=== PATIENT | female | born 1940 | race Caucasian/White ===

== ENCOUNTER 2017-11-20 09:00 | Outpatient (RCR) | payer MEDICARE, OTHER, SELFPAY ==
--- NOTE | 2017-11-13 17:40 | PT.OTRE ---
Addendum entered and electronically signed by Rosalee Russ, PT 11/13/17 17:43: Transition note: On November 10, 2017 our therapy services consisting of Speech, Occupational, and Physical Therapy transitioned from the [employer] electronic documentation system to a new [employer] electronic documentation system.?? All documentation prior to November 10 can be found under [employer] saved data. From November 10 forward all medical record documentation will be in [email or web address]. Original Note: Current Diagnoses Multiple sclerosis (11/13/17) Pain in right hip (11/13/17) Pain in left hip (11/13/17) Pain in right knee (11/13/17) Pain in left knee (11/13/17) Low back pain (11/13/17) Other abnormalities of gait and mobility (11/13/17) History of falling (11/13/17) Past Medical History (Last Updated 11/13/17 @ 17:06 by Mercedez Infante, PT) Retention of urine, unspecified (Acute) Urge and stress incontinence (Acute) Surgical History Status post hysterectomy with oophorectomy Status post laparoscopic cholecystectomy Physical Therapy Re-Evaluation PT-OP-A Visit Information Start: 11/13/17 08:11 Freq: Status: Active Protocol: Activity Type Activity Date Activity User E-Sign Co-Sign Detail Recorded Client Recorded Date Recorded By Document 11/13/17 11:15 AMB [email or web address] 11/13/17 17:08 AMB 11/13/17 11:15 Out-Patient Physical Therapy Visit Information [Visit Information] -Visit Type Re-Evaluation -Visit Start Time 11:15 -Visit Stop Time 12:15 -Total Visit Minutes 60 -Visit Number 9 [Evaluation Information] -Evaluation Date 09/25/17 PT-OP-B Current Condition Start: 11/13/17 08:11 Freq: Status: Active Protocol: Activity Type Activity Date Activity User E-Sign Co-Sign Detail Recorded Client Recorded Date Recorded By Document 11/13/17 11:15 AMB [email or web address] 11/13/17 17:26 AMB 11/13/17 11:15 Current Condition [History of Current Condition] -Current Complaints increased frequency of self catheterization -History of Current Condition The patient notes that if she drinks water and takes Lasix she must self cath every 30 minutes. Sometimes she voids a large quantity, but sometimes not. If she tries to delay cathing, then she experiences urinary leakage. [Treatment Goals] -Patient/Caregiver Goals Increase time between catheterization s [Prior Functional Status] -Baseline Function- ADL's Modified Independent -Baseline Function- Mobility Modified Independent [Current Functional Impairments ( Reported)] -Functional Limitations- Other At times avoids drinking water and avoids taking her Lasix so that she does not have to catheterize as frequently. [Personal Factors] -Other Personal Factors That May Knee pain, back Effect Therapy/Recovery pain PT-OP-C Subjective Start: 11/13/17 08:11 Freq: Status: Active Protocol: Activity Type Activity Date Activity User E-Sign Co-Sign Detail Recorded Client Recorded Date Recorded By Document 11/13/17 11:15 AMB [email or web address] 11/13/17 17:26 AMB 11/13/17 11:15 OP-PT Subjective [Patient Comments] -Patient Comments Patient reports a history of 2 vaginal deliveries with episiotomy and total hysterectomy, but does not remember leaking at that time. Did start leaking with diagnosis of MS. Has been increasing in self cathing lately, but sometimes can void normally, although she doubts she empties completely. PT-OP-I Pelvic Floor Start: 11/13/17 08:11 Freq: Status: Active Protocol: Activity Type Activity Date Activity User E-Sign Co-Sign Detail Recorded Client Recorded Date Recorded By Document 11/13/17 11:15 AMB [email or web address] 11/13/17 17:21 AMB 11/13/17 11:15 Pelvic Floor Assessment [Urine] -Pelvic Floor Surgery No -Urinary Symptoms Urge Sensation Prolapse Incomplete Emptying Pain -Leakage Size Small -Leakage Cause Urge -Other Leakage Causes Gets the urge and then dribbles to the bathroom -Voiding Frequency 30 minutes- 4 hours -Nocturia 1-2 -Pads Used In 24 Hours 5 -Urine Pad Type Depends [Bowel] -Bowel Surgery No -Bowel Symptoms Constipation Fecal Leakage -Bowel Movement Frequency once every 3 days to once a week -[place] Stool Chart Comments Tried miralax which made stools soft but then leaked slightly, so stopped [Pelvic Clock] -Pelvic Clock 12-3 Atrophy -Pelvic Clock 3-6 Atrophy -Pelvic Clock 6-9 Atrophy -Pelvic Clock 9-12 Tenderness [Perineal Descent] -Resting Present -Bearing Present [SEMG (uV)] -Baseline 1 -Quick Contraction 3 [Contraction Ability] -Voluntary Contraction Absent -Manual Muscle Testing Left 0 -Manual Muscle Testing Right 0 -Manual Muscle Testing Anterior 0 -Manual Muscle Testing Posterior 0 [Comments] -Pelvic Floor Comments Patient had difficulty brissa pelvic floor, but 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 PT-OP-T Assessment and Plan Start: 11/13/17 08:11 Freq: Status: Active Protocol: Activity Type Activity Date Activity User E-Sign Co-Sign Detail Recorded Client Recorded Date Recorded By Document 11/13/17 11:15 AMB [email or web address] 11/13/17 17:40 AMB 11/13/17 11:15 Physical Therapy Assessment [Rehab Potential] -Rehabilitation Potential Good [Impairments] -Other Impairments Continence [Goals] 2 -Impairment Urinary frequency -Paint Roller Cover Machine Setter Goal (LTG) The patient will be able to void 1x/hour when she takes her Lasix and drinks enough water. -LTG Duration 8 weeks 1 -Impairment Urinary urge incontinence -Short Term Goal (STG) The patient will be able to delay urinating for 10 minutes after getting the urge without leaking . -STG Duration 4 weeks -Jail Goal (LTG) The patient will use self care techniques to decrease the number of pads she uses to 2 per day. -LTG Duration 8 weeks [Assessment Summary] -Assessment The patient presents with poor bladder habits (not drinking enough water) to manage her urinary frequency and leaking when she gets an urge. She presents with very poor pelvic floor strength. Given her MS, our goal is to help her increase the time between self catheterization with behavioral and strength changes. Physical Therapy Plan [Frequency and Duration] -Frequency of Treatment 1x/Week -Duration of Treatment 8 weeks -Plan of Care Start Date 11/13/17 -Plan of Care End Date 01/08/18 [Therapeutic Interventions] -Therapeutic Interventions Home Exercise Program Manual Therapy Neuromuscular Re-education Self-Care/Home Management Therapeutic Activities Therapeutic Exercises -Modalities Biofeedback Electric Stimulation
--- NOTE | 2017-11-13 17:42 | PT.OPPOC ---
Current Diagnoses Multiple sclerosis (11/13/17) Pain in right hip (11/13/17) Pain in left hip (11/13/17) Pain in right knee (11/13/17) Pain in left knee (11/13/17) Low back pain (11/13/17) Other abnormalities of gait and mobility (11/13/17) History of falling (11/13/17) Plan Of Care PT-OP-T Assessment and Plan Start: 11/13/17 08:11 Freq: Status: Active Protocol: Activity Type Activity Date Activity User E-Sign Co-Sign Detail Recorded Client Recorded Date Recorded By Document 11/13/17 11:15 AMB [email or web address] 11/13/17 17:40 AMB 11/13/17 11:15 Physical Therapy Assessment [Rehab Potential] -Rehabilitation Potential Good [Impairments] -Other Impairments Continence [Goals] 2 -Impairment Urinary frequency -Fpc Goal (LTG) The patient will be able to void 1x/hour when she takes her Lasix and drinks enough water. -LTG Duration 8 weeks 1 -Impairment Urinary urge incontinence -Short Term Goal (STG) The patient will be able to delay urinating for 10 minutes after getting the urge without leaking . -STG Duration 4 weeks -Fpc Goal (LTG) The patient will use self care techniques to decrease the number of pads she uses to 2 per day. -LTG Duration 8 weeks [Assessment Summary] -Assessment The patient presents with poor bladder habits (not drinking enough water) to manage her urinary frequency and leaking when she gets an urge. She presents with very poor pelvic floor strength. Given her MS, our goal is to help her increase the time between self catheterization with behavioral and strength changes. Physical Therapy Plan [Frequency and Duration] -Frequency of Treatment 1x/Week -Duration of Treatment 8 weeks -Plan of Care Start Date 11/13/17 -Plan of Care End Date 01/08/18 [Therapeutic Interventions] -Therapeutic Interventions Home Exercise Program Manual Therapy Neuromuscular Re-education Self-Care/Home Management Therapeutic Activities Therapeutic Exercises -Modalities Biofeedback Electric Stimulation Plan of Care Dates Plan of Care Start Date 11/13/17 Plan of Care End Date 01/08/18 Provider Visit Care Team Role Provider Type James Perez MD Attending Provider Physician Family Provider Primary Care Provider Specialty: Family Practice Address: [address] [place] [address], [id number] Email: [email or web address] Please Sign and Return: I have reviewed this Plan of Care and certify that the skilled therapy services above are required to meet the patient???s needs. Physician Signature Date Printed Name and Credentials
--- NOTE | 2017-11-20 10:03 | PT.OTN ---
Current Diagnoses Multiple sclerosis (11/20/17) Pain in right hip (11/20/17) Pain in left hip (11/20/17) Pain in right knee (11/20/17) Pain in left knee (11/20/17) Low back pain (11/20/17) Other abnormalities of gait and mobility (11/20/17) History of falling (11/20/17) Physical Therapy Treatment Note PT-OP-A Visit Information Start: 11/13/17 08:11 Freq: Status: Active Protocol: Document 11/20/17 09:00 AMB (Rec: 11/20/17 09:10 AMB [id number]) Out-Patient Physical Therapy Visit Information Visit Information Visit Type Treatment Note Visit Start Time 09:00 Visit Stop Time 09:45 Total Visit Minutes 45 Visit Number 10 Evaluation Information Evaluation Date 09/25/17 PT-OP-B Current Condition Start: 11/13/17 08:11 Freq: Status: Active Protocol: Document 11/13/17 11:15 AMB (Rec: 11/13/17 17:26 AMB [email or web address]) Current Condition History of Current Condition Current Complaints increased frequency of self catheterization History of Current Condition The patient notes that if she drinks water and takes lasix she must self cath every 30 minutes. Sometimes she voids a large quantity, but sometimes not. If she tries to delay cathing, then she experiences urinary leakage. Treatment Goals Patient/Caregiver Goals Increase time between catheterizations Prior Functional Status Baseline Function- ADL's Modified Independent Baseline Function- Mobility Modified Independent Current Functional Impairments (Reported) Functional Limitations- Other At times avoids drinking water and avoids taking her lasix so that she does not have to catheterize as frequently. Personal Factors Other Personal Factors That May Effect Knee pain, back pain Therapy/Recovery PT-OP-C Subjective Start: 11/13/17 08:11 Freq: Status: Active Protocol: Document 11/20/17 09:00 AMB (Rec: 11/20/17 09:32 AMB [id number]) OP-PT Subjective Patient Comments Patient Comments Patient states that her knee has been doing better, but her leg weakness continues. It is difficult to feel the pelvic floor contraction. PT-OP-I Pelvic Floor Start: 11/13/17 08:11 Freq: Status: Active Protocol: Document 11/13/17 11:15 AMB (Rec: 11/13/17 17:21 AMB [email or web address]) Pelvic Floor Assessment Urine Pelvic Floor Surgery No Urinary Symptoms Urge Sensation Prolapse Incomplete Emptying Pain Leakage Size Small Leakage Cause Urge Other Leakage Causes Gets the urge and then dribbles to the bathroom Voiding Frequency 30 minutes- 4 hours Nocturia 1-2 Pads Used In 24 Hours 5 Urine Pad Type Depends Bowel Bowel Surgery No Bowel Symptoms Constipation Fecal Leakage Bowel Movement Frequency once every 3 days to once a week [place] Stool Chart Comments Tried miralax which made stools soft but then leaked slightly, so stopped Pelvic Clock Pelvic Clock 12-3 Atrophy Pelvic Clock 3-6 Atrophy Pelvic Clock 6-9 Atrophy Pelvic Clock 9-12 Tenderness Perineal Descent Resting Present Bearing Present SEMG (uV) Baseline 1 Quick Contraction 3 Contraction Ability Voluntary Contraction Absent Manual Muscle Testing Left 0 Manual Muscle Testing Right 0 Manual Muscle Testing Anterior 0 Manual Muscle Testing Posterior 0 Comments Pelvic Floor Comments Patient had difficulty brissa pelvic floor, but 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 PT-OP-Q Treatments Start: 11/13/17 08:11 Freq: Status: Active Protocol: Document 11/20/17 09:00 AMB (Rec: 11/20/17 09:36 AMB [id number]) Neuro Re-Education Treatment Other Activities 1 Details Pelvic floor strengthening Comments with biofeedback in supine, then without in seated. Pt has difficulty keeping internal sensor in, and avoiding over use of abdominals. Given multiple verbal cues for brissa, and relaxing pelvic floor. PT-OP-T Assessment and Plan Start: 11/13/17 08:11 Freq: Status: Active Protocol: Document 11/20/17 09:55 AMB (Rec: 11/20/17 09:59 AMB [id number]) Physical Therapy Assessment Assessment Summary Assessment Pt is going to take a 2 week break while her friend is in town. She was able to feel some amount of contraction in sitting and is going to work on both quick flicks and long holds at least 3x/day and we will reassess in December. Physical Therapy Plan Next Visit Focus/Plan Next Visit Plan Reassess pelvic floor strength .
--- NOTE | 2017-12-31 08:14 | PT.OPDS ---
Current Diagnoses Multiple sclerosis (11/20/17) Pain in right hip (11/20/17) Pain in left hip (11/20/17) Pain in right knee (11/20/17) Pain in left knee (11/20/17) Low back pain (11/20/17) Other abnormalities of gait and mobility (11/20/17) History of falling (11/20/17) Provider Visit Care Team Role Provider Type James Perez MD Attending Provider Physician Family Provider Primary Care Provider Specialty: [facility] Practice Address: [address] [place] [address] Email: [email or web address] Discharge Summary PT-OP-B Current Condition Start: 11/13/17 08:11 Freq: Status: Active Protocol: Document 11/13/17 11:15 AMB (Rec: 11/13/17 17:26 AMB [email or web address]) Current Condition History of Current Condition Current Complaints increased frequency of self catheterization History of Current Condition The patient notes that if she drinks water and takes lasix she must self cath every 30 minutes. Sometimes she voids a large quantity, but sometimes not. If she tries to delay cathing, then she experiences urinary leakage. Treatment Goals Patient/Caregiver Goals Increase time between catheterizations Prior Functional Status Baseline Function- ADL's Modified Independent Baseline Function- Mobility Modified Independent Current Functional Impairments (Reported) Functional Limitations- Other At times avoids drinking water and avoids taking her lasix so that she does not have to catheterize as frequently. Personal Factors Other Personal Factors That May Effect Knee pain, back pain Therapy/Recovery PT-OP-C Subjective Start: 11/13/17 08:11 Freq: Status: Active Protocol: Document 11/20/17 09:00 AMB (Rec: 11/20/17 09:32 AMB [id number]) OP-PT Subjective Patient Comments Patient Comments Patient states that her knee has been doing better, but her leg weakness continues. It is difficult to feel the pelvic floor contraction. PT-OP-I Pelvic Floor Start: 11/13/17 08:11 Freq: Status: Active Protocol: Document 11/13/17 11:15 AMB (Rec: 11/13/17 17:21 AMB [email or web address]) Pelvic Floor Assessment Urine Pelvic Floor Surgery No Urinary Symptoms Urge Sensation Prolapse Incomplete Emptying Pain Leakage Size Small Leakage Cause Urge Other Leakage Causes Gets the urge and then dribbles to the bathroom Voiding Frequency 30 minutes- 4 hours Nocturia 1-2 Pads Used In 24 Hours 5 Urine Pad Type Depends Bowel Bowel Surgery No Bowel Symptoms Constipation Fecal Leakage Bowel Movement Frequency once every 3 days to once a week [place] Stool Chart Comments Tried miralax which made stools soft but then leaked slightly, so stopped Pelvic Clock Pelvic Clock 12-3 Atrophy Pelvic Clock 3-6 Atrophy Pelvic Clock 6-9 Atrophy Pelvic Clock 9-12 Tenderness Perineal Descent Resting Present Bearing Present SEMG (uV) Baseline 1 Quick Contraction 3 Contraction Ability Voluntary Contraction Absent Manual Muscle Testing Left 0 Manual Muscle Testing Right 0 Manual Muscle Testing Anterior 0 Manual Muscle Testing Posterior 0 Comments Pelvic Floor Comments Patient had difficulty brissa pelvic floor, but 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 PT-OP-T Assessment and Plan Start: 11/13/17 08:11 Freq: Status: Active Protocol: Document 12/30/17 12:49 AMB (Rec: 12/30/17 12:58 AMB [id number]) Physical Therapy Assessment Goals 2 Impairment Urinary frequency Long-Term Goal (LTG) The patient will be able to void 1x/hour when she takes her lasix and drinks enough water. NOT MET LTG Duration 8 weeks 1 Impairment Urinary urge incontinence Short Term Goal (STG) The patient will be able to delay urinating for 10 minutes after getting the urge without leaking. NOT MET STG Duration 4 weeks [facility] Goal (LTG) The patient will use self care techniques to decrease the number of pads she uses to 2 per day. NOT MET LTG Duration 8 weeks Assessment Summary Assessment The patient was originally seen for LE weakness. We assessed her pelvic floor strength with the idea of trying to increase the time between self caths so that she could use the pool to strengthen her legs. She felt that it was very difficult to contract her pelvic floor. And ended up canceling her appointments. We did suggest that she try the pool at a later time in the day, when her lasix is not kicking in as much. Physical Therapy Plan Discharge Physical Therapy Discharge Reasons Patient Request Discharge Comments The patient requests discharge at this time.
== END 2017-12-31 13:03 ==
LOC: PHYS 09:00
PROVIDERS: Family Provider Family Medicine; PCP Family Medicine; Visit Provider Family Medicine
DX: M54.5 Low back pain (principal); M25.551 Pain in right hip; M25.561 Pain in right knee; M25.562 Pain in left knee; M25.552 Pain in left hip; G35 Multiple sclerosis; Z91.81 History of falling; R26.89 Other abnormalities of gait and mobility
CPT/HCPCS: 97112; 97164

== ENCOUNTER → 2018-01-18 07:51 | Outpatient (CLI) | payer MEDICARE, OTHER, SELFPAY ==
--- NOTE | 2018-01-18 07:58 | DI.MRI.S_ITS ---
PROCEDURE: MR LUMBAR SPINE WO/W CON INDICATIONS: INCREASED LEFT LEG WEAKNESS AND PAIN TECHNIQUE: Noncontrast sagittal T1 spin echo and T2 fast spin echo, sagittal STIR, axial T1 and T2 fast spin echo through the lumbar spine. In cases with scoliosis, additional coronal T2 fast spin echo may be performed. After the administration of contrast, sagittal and axial T1 spin echo with fat saturation through the lumbar spine. COMPARISON: [facility], , -SPINE 2-3 VIEWS, 12/25/2009, 10:39. FINDINGS: Image quality: This examination is limited by involuntary motion artifact. Alignment and curvature: There is normal bony alignment. Marrow: Marrow is of normal overall signal. No acute vertebral body compression fractures. No suspicious marrow enhancement. Spinal cord: Conus medullaris terminates at the L1 level. Visualized spinal cord demonstrates normal signal, without suspicious enhancement. Paraspinous soft tissues: No paravertebral masses or abnormal enhancement. T12-L1: Normal appearance. There is mild to moderate left-sided and no significant right-sided neural foraminal narrowing seen. No significant central canal narrowing is seen. L1-L2: The disc height is well-preserved. Loss of disc signal is seen at this level. Moderate disc bulge is seen, which is eccentric to the right. Moderate facet hypertrophy is seen, with associated moderate hypertrophy of the ligamentum flavum. Moderate bilateral neural foraminal narrowing is seen, left greater than right. Moderate central canal narrowing is seen. L2-L3: Moderate loss of disc height is seen. Loss of disc signal is seen. Moderate generalized disc bulge is seen. Moderate facet joint hypertrophy is seen. There is associated moderate hypertrophy of the ligamentum flavum at this level. Moderate bilateral neural foraminal narrowing is seen. Ignp-[id number] central canal narrowing is seen. L3-L4: Mild loss of disc height is seen. Loss of disc signal is seen. Moderate disc bulge is seen, which is eccentric to the right side. Moderate to prominent facet hypertrophy is seen. There is associated moderate hypertrophy the of the ligamentum flavum. Moderate to severe bilateral neural foraminal narrowing is seen at this level. There is a degree of impingement seen upon the exiting nerve roots. There is severe central canal narrowing, as on series 8 image 20. L4-L5: At least moderate loss of disc height and disc signal are seen. Moderate disc bulge is seen, which is eccentric to the right side. Moderate facet joint hypertrophy is seen. Moderate bilateral neural foraminal narrowing is seen, right worse than left. Moderate central canal narrowing is seen. L5-S1: Moderate loss of disc height is seen. Loss of disc signal is seen. Moderate disc bulge is seen at this level. Moderate to prominent facet hypertrophy is seen, left worse than right. Moderate to severe bilateral neural foraminal narrowing is seen. There is a degree of impingement seen upon the exiting nerve roots. The central canal is widely patent. 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 No abnormal enhancement is detected. Dictated by: Robert Flores M.D. on 01/18/2018 at 11:33 Approved by: Robert Flores M.D. on 01/18/2018 at 11:39
[2018-01-18 08:15] LABS: BUN Creatinine Ratio 42.2 (6-22); Blood Urea Nitrogen 38 mg/dL (7-17); Estimated Glomerular Filt Rate > 60.0 mL/min (>60)
== END ==
PROVIDERS: Family Provider Family Medicine; PCP Family Medicine; Visit Provider Family Medicine
DX: M51.36 Other intervertebral disc degeneration, lumbar region (principal); M79.605 Pain in left leg; G35 Multiple sclerosis; R53.1 Weakness
CPT/HCPCS: 36415; 72158; 82565; 84520

== ENCOUNTER → 2018-03-23 08:10 | Outpatient (CLI) | payer MEDICARE, OTHER, SELFPAY ==
[2018-03-23 08:26] LABS: RBC Urine None Seen (0-5/HPF)
[2018-03-23 08:46] LABS: Add Manual Diff / Slide Review NO; Basophils Percent Auto 0.7 % (0-2); Eosinophils Percent Auto 4.6 % (2-4); Hematocrit 35.9 % (36-46); Hemoglobin 12.2 g/dL (12.0-16.0); Mean Corpuscular HGB Conc 33.9 % (30-36); Mean Corpuscular Hemoglobin 29.1 PG (26-34); Mean Corpuscular Volume 85.6 fL (80-100); Monocytes Percent Auto 8.7 % (3-14); Neutrophils Absolute Auto 5200 /uL (3000-5900); Platelet Count 300 X10^3/uL (150-400); Red Blood Cell Count 4.19 X10^6/uL (4.0-5.2); Red Cell Distribution Width 14.2 % (11.6-14.8)
[2018-03-23 08:48] LABS: Appearance Urine UA CLEAR; Bilirubin Urine UA NEGATIVE (NEGATIVE); Color Urine UA YELLOW; Glucose Urine UA NEGATIVE (Normal); Ketones Urine UA NEGATIVE (NEGATIVE); Leukocyte Esterase Urine UA NEGATIVE (NEGATIVE); Nitrite Urine UA Negative (Negative); Occult Blood Urine UA NEGATIVE (Negative); Protein Urine UA NEGATIVE (Negative); Specific Gravity Urine UA 1.015 (1.000-1.035); Urobilinogen Urine UA 0.2 E.U./dL (0.2)
[2018-03-23 09:02] LABS: Prothrombin Time 10.3 SECONDS (10.1-12.7)
[2018-03-23 09:05] LABS: PTT Partial Thromboplastin Tim 32 SECONDS (26.4-36.2)
[2018-03-23 09:19] LABS: Bacteria Urine Few (2-10); Culture Indicated Urine Cult Not Indicated; Hyaline Casts Urine 1-5/LPF; Squamous Epithelial Cell Urine 5-10 /HPF; WBC Urine 0-1/HPF (0-5/HPF)
[2018-03-23 09:25] LABS: BUN Creatinine Ratio 45.6 (6-22); Blood Urea Nitrogen 41 mg/dL (7-17); Calcium 9.2 mg/dL (8.4-10.2); Carbon Dioxide 30 mmol/L (22-32); Chloride 108 mmol/L (98-107); Estimated Glomerular Filt Rate > 60.0 mL/min (>60); Glucose 98 mg/dL (80-110); HEMOLYSIS < 15 (0-50); Potassium 4.1 mmol/L (3.4-5.1); Sodium 147 mmol/L (137-145)
== END ==
PROVIDERS: PCP Family Medicine; Visit Provider Orthopaedic Surgery Orthopaedic Surgery of the Spine
DX: M47.26 Other spondylosis with radiculopathy, lumbar region (principal); Z01.812 Encounter for preprocedural laboratory examination
CPT/HCPCS: 36415; 80048; 81001; 85025; 85610; 85730

== ENCOUNTER → 2018-03-25 08:59 | Outpatient (CLI) | payer MEDICARE, OTHER, SELFPAY ==
--- NOTE | 2018-03-25 09:18 | DI.ECHO.S_ITS ---
[place]---------+ [facility] +---------+ : : [address] : : : : [id number] : : : : Phone: [phone]+ Echocardiogram Report + + :Name: DEANDRA MOREIRA Study Date: 03/25/2018 Height: 65 in : :[facility] Exam Location: [place] Weight: 220 lb : : Gender: Female BSA: 2.1 m2 : :: 1940 Age: 77 yrs BP: 140/90 mmHg: :Reason For Study: Septal Infarction : :Ordering Physician: Dr. Ramirez : :Chris Performed By: Nidia Page : + + Interpretation Summary 1. Normal left ventricular size with proximal septal thickening and normal systolic function with an estimated EF of 60-65% 2. Normal right ventricular size and systolic function. 3. Mitral annular calcification with trace insufficiency. Compared to the previous study, the EF appears stable. The measured wall thickness is less. BP measurement is improved compared to the previous study. Procedure: A two-dimensional transthoracic echocardiogram with color flow and Doppler was performed. The study quality was technically adequate. Comparison is made with the echocardiogram of 04/04/2016. The patient was in normal sinus rhythm during the exam. The patient was in a normal sinus rhythm with occasional abnormal beats. Left Ventricle: The left ventricle is normal in size. There is mild proximal septal thickening noted. The ejection fraction is estimated to be 60-65%. No focal wall motion abnormalities appreciated. Assessment of diastolic parameters indicates a relaxation abnormality of the left ventricle, consistent with normal filling pressures. Right Ventricle: The right ventricle is normal in size and function. Atria: The left atrium is severely dilated. Right atrial size is normal. There is no Doppler evidence for an interatrial shunt. Mitral Valve: There is severe mitral annular calcification. The mitral valve mean gradient is 2.6 mmHg. There is trace mitral regurgitation. Aortic Valve: The aortic valve is grossly normal. The aortic valve opens well. Probable trileaflet. There is mild aortic regurgitation. Tricuspid Valve: The tricuspid valve leaflets are thin and pliable. There is trace tricuspid regurgitation. The right ventricular systolic pressure is estimated at 21 mmHg assuming a right atrial pressure of 3 mm Hg. Pulmonic Valve: The pulmonic valve is not well visualized. There is a trace or physiologic amount of pulmonic regurgitation. Great Vessels: The aortic root is normal size. The ascending aorta is at the upper limits of normal in size. The aortic arch could not be visualized. The pulmonary is not well visualized. The IVC is of normal diameter and collapses greater than 50% with a sniff. This suggests a low right atrial pressure of 3 mm Hg. Pericardium/ Pleura There is no pericardial effusion. There is no pleural effusion. MMode/2D Measurements & Calculations LVIDd: 4.3 cm Ao root diam: 3.0 cm LVIDs: 2.4 cm asc Aorta Diam: 3.4 cm FS: 42.8 % EPSS: 0.53 cm IVSd: 1.1 cm LVPWd: 1.3 cm LV rosales. diameter/BSA (cm/m^2): 2.1 LV sys. diameter/BSA (cm/m^2): 1.2 LA A2 area: 30.3 cm2 RA long axis: 4.8 cm LA A4 area: 27.7 cm2 RA area: 14.5 cm2 LA length (vol): 6.7 cm RA vol: 37.3 ml LA vol: 106.3 ml RA : 18.1 ml/m2 LA vol index: 51.6 ml/m2 IVC diam: 2.2 cm RVD1 (basal): 3.4 cm TAPSE: 2.4 cm Doppler Measurements & Calculations Ao V2 max: 146.0 cm/sec LVOT Max Jamie: 84.5 cm/sec Ao V2 mean: 103.0 cm/sec LV V1 max P.9 mmHg Ao max P.5 mmHg LV V1 VTI: 21.5 cm Ao mean P.6 mmHg sev ratio: 0.56 Ao V2 VTI: 38.3 cm AI P1/2t: 531.8 msec AI dec slope: 267.5 cm/sec2 MV E max jamie: 113.6 cm/sec TR max jamie: 217.5 cm/sec MV A max jamie: 131.2 cm/sec TR max P.9 mmHg MV E/A: 0.87 PA V2 max: 89.5 cm/sec Med Peak E' Jamie: 3.4 cm/sec PA V2 mean: 62.9 cm/sec E/E' med: 33.4 PA mean P.7 mmHg Lat Peak E' Jamie: 4.0 cm/sec PA Accel Time: 0.12 sec E/E' lat: 28.2 E/e' average: 30.8 MV dec time: 0.15 sec MV P1/2t: 45.9 msec MV V2 mean: 73.9 cm/sec MV P1/2t max jamie: 114.0 cm/sec MV mean P.6 mmHg MVA(P1/2t): 4.8 cm2 MV V2 VTI: 34.0 cm Reading Physician:PRAKASH
== END ==
PROVIDERS: Family Provider Orthopaedic Surgery Orthopaedic Surgery of the Spine; PCP Family Medicine; Visit Provider Family Medicine
DX: I21.29 ST elevation (STEMI) myocardial infarction involving other sites (principal); I08.0 Rheumatic disorders of both mitral and aortic valves
CPT/HCPCS: 93306

== ENCOUNTER 2018-04-07 06:22 | Inpatient (IN) | payer MEDICARE, OTHER, SELFPAY ==
[2018-04-01 08:52] VITALS: BMI 37.9
[2018-04-07] VITALS (16 sets, daily range): BP systolic 123–173; BP diastolic 56–79; PULSE 63–75; RESP 10–16; TEMP 36.1–36.6; O2SAT 90–100; BMI 36.7
--- NOTE | 2018-04-07 | DI.RAD.S_ITS ---
PROCEDURE: XR LUMBAR SPINE 2-3V INDICATIONS: Spinal surgery. TECHNIQUE: Fluoroscopic images were obtained during an operative procedure and submitted for interpretation following the completion of the procedure. COMPARISON: [facility], MR, MR LUMBAR SPINE WO/W CON, 01/18/2018, 8:59. [facility], CR, L-SPINE 2-3 VIEWS, 12/25/2009, 10:39. FINDINGS: These fluoroscopic images were performed for intraoperative localization. On these images, pedicle screws are seen at the L3, L4, and L5 levels. Vertical fixation rods are seen. Disc spacers are seen at L3-L4 and L4-L5. Please correlate with intraoperative findings. IMPRESSION: Normal intraoperative examination. Dictated by: Robert Flores M.D. on 04/07/2018 at 10:44 Approved by: Robert Flores M.D. on 04/07/2018 at 10:45
[2018-04-07] MEDS: LACTATED RINGERS 1,000 ML 42 ML IV ×2 (07:14→08:41)
--- NOTE | 2018-04-07 07:20 | SUR.PREOP ---
Pt states has baseline numbness and tingling in all four extremities but pt reports left side is worse than right side.
--- NOTE | 2018-04-07 07:43 | PM.PREOP ---
Pre-operative Note Interval Note Pre-op Check: Yes History & Physical Reviewed by Physician, Yes Exam Performed and Yes History & Physical exam performed today by Physician Changes: No
[2018-04-07] MEDS: CLINDAMYCIN 900 MG/50 ML PIGGYBACK 50 MG IV ×3 (08:00→23:58)
--- NOTE | 2018-04-07 08:31 | SUR.OPER ---
Prone on spine table, head in foam head support, padded chest and pelvic supports, gel pad at knees, lower legs supported by pillows; nipples, genitalia and toes free of pressure, arms secured on foam padded arm boards at <90 degrees abduction. Tape over blanket at thigh secured to table.
[2018-04-07] MEDS: BUPIVACAINE 0.25% W/ EPI VIAL 30 ML INJ (08:37)
[2018-04-07] MEDS: BUPIVACAINE LIPOSOME 266 MG/20 ML VIAL INJ (08:38)
[2018-04-07] MEDS: ACETAMINOPHEN IV 1,000 MG/100 ML VIAL 400 MG IV (10:31)
--- NOTE | 2018-04-07 11:44 | P.OP_ITS ---
Operative Date/Time/Diagnoses Date of procedure: 04/07/18 Time of procedure: 08:13 Pre-op diagnosis: 1. L3-4, L4-5 spinal stenosis 2. 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 Lumbar scoliosis Post-op diagnosis: same Procedure & Clinicians Procedure: 1. L3-4, L4-5 Postero-lateral and posterior interbody fusion 2. L3-4, L4-5 interbody cage placement. 3. L3-4, L4-5 decompressive laminectomy with bilateral facetecomies 4. L3-4, L4-5 Posterior segmental instrumentation 5. [place] of bone marrow from iliac crest 6. Utilization of microsurgical technique and operating microscope Same procedure as scheduled: Yes Indications: Patient has been having chronic back pain and worsening lumbar radiculopathy. Patient failed multiple conservative management with worsening pain weakness and numbness in her lower extremity. Patient has been having difficulty performing activity of daily living. After discussing risks benefits of treatment options, patient elected proceed with surgery. Surgeon: Leticia Park Health Policy Manager: Rosalee Henson Click Yes if Unassisted: No Anesthesia Type: General Operative Notes Closure Type: primary Specimen(s): none sent Implants & Drains: Globus revolve screws, Rise cages Applied: catheter Estimated Blood Loss (mL): 100 Blood products transfused: none Procedure in detail: Patient was seen in the preoperative area. Risks and benefits of the surgery was discussed with the patient. Informed consent was obtained from the patient and placed in the chart. Surgical site was marked. Patient was taken to the operative room. General anesthesia was administered. Prophylactic antibiotic was given to the patient less than 30 min before the incision was made. Patient was placed into a prone position on the Timbo table. Patient's back was then prepped and draped in the sterile fashion. Time- out was performed at this time. Using AP and lateral C-arm imaging the interval between L3-4, L4-5 was identified and marked on patient's back. A 2 inch incision 2 in from midline was made on the left side first. The fascia was incised in line with skin incision. Globus MARS retractors was placed inside the incision and docked onto the L3 and L4 lamina. Using microsurgical technique and operating microscope, a L3 and L4 laminectomy and L3-4, L4-5 facetectomy was performed using a Kerrison rongeur. The disc space at L3-4, L4-5 was identified. And a total diskectomy was performed at L3-4, L4-5 level. The endplates were decorticated using a rasp and shaver. The total diskectomy and decortication was performed at L3-4, L4-5 level in order to to accomplish a L3-4, L4-5 fusion. The local bone from the laminectomy and facetectomy was saved for local bone grafting. After the total diskectomy and decortication was completed, Globus viacell bone graft material was combined with local bone that was harvested earlier. At this time, a separate skin is incision was made over the iliac crest. A Jamshidi needle was inserted into the iliac crest through a separate skin incision. 5 cc of bone marrow aspiration was obtained through the separate skin incision using a Jamshidi needle from the iliac crest. The bone marrow aspiration was combined with local bone and the via cell bone grafting material. The bone grafting material was placed into the L3-4, L4-5 interbody space along with two cages, one expandable cage at each level. The cages were expanded to their maximum height using the torque limiting screwdriver. At this time a mirror image incision was made on the right side. The fascia was incised in line with the skin incision. Globus MARS retractor was inserted and docked onto the L3-4, L4-5 posterolateral gutter. Using the power drill, posterior-lateral decortication was performed at L3-4, L4-5 level until bleeding cortical bone was identified. The remaining bone grafting material was placed into the L3-4, L4-5 posterior lateral gutter he order to accomplish posterolateral fusion at the L3-4, L4-5 levels. Using the double C-arm technique, pedicle screws were placed into the L3, L4, L5 pedicles bilaterally. This was done by placing the Jamshidi needle into the pedicles, then placing the guidewires over the Jamshidi needle, and finally placing the cannulated screws over the guidewires bilaterally. After the pedicle screws were placed, 2 titanium rods was locked into the heads of the pedicle screws using locking caps and torque limiting screwdriver. Total 6 pedicles screws were placed. After all the hardware was placed, and confirmed with AP and lateral C-arm imaging, the wound was then irrigated with sterile normal saline and packed with Ray-Estela gauze for 3 min to accomplish hemostasis. After the gauze was removed the deep fascia was closed with #1 Vicryl suture. The subcutaneous layer was closed with 2-0 Vicryl. The skin was closed with skin jorge. Patient tolerated the procedure well. There were no complications. Complications: none Condition: stable Disposition: Acute Care Plan for aftercare: Admit to inpatient hospital
[2018-04-07] MEDS: HYDROMORPHONE 2 MG INJ 0.25 MG IV ×6 (11:58→12:30)
--- NOTE | 2018-04-07 12:25 | SUR.PHASEI ---
Report given to Lisa Kent RN
--- NOTE | 2018-04-07 12:41 | SUR.PHASEI ---
REPORT CALLED TO TANIA LEWIS ON ACUTE CARE, PT RESTING QUIETLY ON RIGHT SIDE, BACK DRESSING REMAINS DRY AND INTACT. IV SITES PATENT, BROWN PATENT AND DRAINING CLEAR YELLOW URINE.
[2018-04-07] MEDS: SODIUM CHLORIDE 0.9% 1,000 ML 100 ML IV ×2 (14:31→23:58)
[2018-04-07] MEDS: HYDROMORPHONE 1 MG INJ 0.5 MG IV ×2 (14:34→16:36)
[2018-04-07] MEDS: ACETAMINOPHEN 325 MG TABLET 650 MG PO (14:36)
[2018-04-07] MEDS: hydrOXYzine pamoate 25 MG CAPSULE PO (14:37)
--- NOTE | 2018-04-07 15:20 | PT.IIE ---
Current Diagnoses Other spondylosis with radiculopathy, lumbar region (04/07/18) Spinal stenosis, lumbar region with neurogenic claudication (04/07/18) Surgery Performed Operation Date: 04/07/18 07:45 Actual Procedures p L3-4, L4-5 TLIF w/Posterior Instru. - Leticia Park MD Surgical History (Last Reviewed 04/01/18 @ 15:19 by Cyndy Perla LPN) Hx of foot surgery (Acute) Hx of tonsillectomy (Acute) S/P wrist surgery (Acute) Status post bilateral cataract extraction (Acute) H/O arthroscopic knee surgery (Resolved) Status post hysterectomy with oophorectomy (Resolved) Status post laparoscopic cholecystectomy (Resolved) Medical History (Last Reviewed 04/01/18 @ 15:19 by Cyndy Perla LPN) Anxiety (Acute) Arthritis (Acute) Blister (Acute) Eczema of both hands (Acute) Edema (Acute) Frequent UTI (Acute) GERD (gastroesophageal reflux disease) (Acute) Asthma (Chronic) Diastolic heart failure (Chronic) Hyperlipidemia (Chronic) Hypertension (Chronic) Multiple sclerosis (Chronic) RLS (restless legs syndrome) (Chronic) Retention of urine, unspecified (Chronic) Urge and stress incontinence (Chronic) Physical Therapy Inpatient Evaluation/Re-Eval M1 PT/OT-IP Prior Functional Status Start: 04/07/18 17:43 Freq: NEEDED Status: Active Protocol: Document 04/07/18 15:20 AB (Rec: 04/07/18 18:00 AB [id number]) Medical Review Prior Functional Status Medical History Reviewed Yes Communication able to make needs known Mobility and Gait pt stated that she is modified independent with ambulation using 4WW. Just started using a 4WW due to back pain but was able to use a SPC ~ 1 month ago. Activities of Daily Living and IADL's spouse provides SBA to pt for showers, assists pt with tying her shoe laces Social History Household Members spouse Living Arrangements House Number of Floors (Floors) One Floor Number of Stairs To Enter/Railing? 1 step to enter Home Environment High Toilet Walk in Shower Home Equipment Front Wheel Walker Four Wheel Walker Straight Cane Hand Held Shower Employment Status Retired Additional Social History Comment pt has an adjustable bed M2 PT-IP Current Condition Start: 04/07/18 17:43 Freq: NEEDED Status: Active Protocol: Document 04/07/18 15:20 AB (Rec: 04/07/18 18:00 AB [id number]) Physical Therapy Current Condition Current Condition Evaluation Date 04/07/18 Treatment Diagnosis L3-4, L4-5 fusion, laminectomy ; difficulty in walking Onset Date 04/07/18 Precautions Lumbar Precautions Log Roll No Twisting Limit Bending Lifting Restriction of 10 lbs Gait Belt above Incisional Area Other Precautions Falls M3 PT-IP Subjective Start: 04/07/18 17:43 Freq: NEEDED Status: Active Protocol: Document 04/07/18 15:20 AB (Rec: 04/07/18 18:00 AB [id number]) Subjective Physical Therapy Visit Type Type Initial Evaluation Visit Start Time 15:20 Visit Stop Time 16:12 Total Visit Minutes 52 Number of FINAL COAT SPRAYER Visits 0 Physical Therapy Visit Comments Patient Comments i want to get up on the chair Therapy Pain Assessment Pain When Pain Assessed At Rest Pain Present Pain Present Pain Reported Location Back Intensity 6 Scale Used Numeric (1 - 10) Pain Management Techniques Apply Cold Re-positioning Timing of Activity with Medications M4 PT-IP Mobility and Gait Start: 04/07/18 17:43 Freq: NEEDED Status: Active Protocol: Document 04/07/18 15:20 AB (Rec: 04/07/18 18:00 AB [id number]) PT-Bed Mobility Assessment Rolling Type of Rolling Log Rolling Level of Assist Maximal Assistance 1 Person Assistance Supine to Sit Supine to Sit Maximum Assistance 1 Person Assistance Scooting Scooting to Edge of Bed Moderate Assistance PT-Transfer Assessment Sit to and From Stand Sit to and from Stand Maximum Assistance 1 Person Assistance Use of Upper Extremities Equipment Transfer Assistive Device Gait Belt Front Wheeled Walker Transfers Transfer Destination Chair Transfer Technique Stand Step Pivot Transfer Ability Level of Assist Maximum Assistance 1 Person Assistance 2 Person Assistance Use of Upper Extremities Comments Mobility Comments pt completed supine to sit max A and max cues for log roll supine to sit technique. required initial max A to maintain sitting balance on EOB. pt completed sit to stand max A x 1-2 and max cues . has increase L knee hyperextension with standing and bilateral genu valgus. pt required assist to move LLE during stand step pivot transfer requiring max A x 1-2 and max cues for techniques. pt also needed assistance with maneuvering of FWW and weight shifting. pt required max A for controlled descent to the chair. positioned pt on chair. call light and table placed within reach. left pt with nurse and spouse in room. Gait Assessment Comments Gait Comments able to take steps during transfer using FWW max A x 1-2 and max cues. PT-Balance Assessment Sitting Balance and Reactions Static Sitting Balance Ability Fair Dynamic Sitting Balance Ability Fair Standing Balance and Reactions Static Standing Balance Ability Poor Dynamic Standing Balance Ability Poor Device Used FWW M5 PT-IP Objective Assessments Start: 04/07/18 17:43 Freq: NEEDED Status: Active Protocol: Document 04/07/18 15:20 AB (Rec: 04/07/18 18:00 [id number]) Orientation Orientation/Cognition Level of Alertness Alert Orientation Name Age Birthday Month Date Year Day of Week Place Situation Safety Awareness Decreased Safety Awareness Gross Range of Motion Lower Extremity ROM Assessment Within Functional Limits Strength Lower Extremity Strength Assessment Bilaterally Impaired Comments Strength Comments LLE weaker than RLE L knee extension: 3+/5 R knee extension: 4-/5 Sensation Assessment Sensation Gross Sensation Right LE Impaired Left LE Impaired Sensation Description Numbness Comments Sensation Comments decrease LE sensation on B feet especially on lateral side of feet close of the 5th toe M6 PT-IP Treatment Start: 04/07/18 17:43 Freq: NEEDED Status: Active Protocol: Document 04/07/18 15:20 AB (Rec: 04/07/18 18:00 [id number]) Physical Therapy Treatment Education Education Provided Precautions Weight Bearing Status Post-Op Packet Safety M7 PT-IP Assessment and Plan Start: 04/07/18 17:43 Freq: NEEDED Status: Active Protocol: Document 04/07/18 15:20 AB (Rec: 04/07/18 18:00 [id number]) PT Summary Assessment and Plan Potential Rehabilitation Potential Fair Status of Condition at Evaluation Evolving Summary Impairments Pain ROM Strength Balance Coordination Sensation Tone Cognition Bed Mobility Transfers Gait Activity Tolerance Assessment Summary pt requiring max A x 1-2 with mobility at this time. d/c plan depending on progress and if spouse will be able to safely assist pt. At this time, pt may require SNF rehab to improve strength and mobility. will continue to assess. Goals Bed Mobility Goal Minimal Assistance Transfer Goal Minimal Assistance Gait Goal Minimal Assistance Gait Distance 75 Other Goals up/down 1 step using FWW min A Days to Meet Goals 5 Frequency of Treatment Frequency Of Treatment Twice a Day Treatment Plan Physical Therapy Treatment Plan Bed Mobility Training Transfer Training Gait Training Therapeutic Exercise Balance Retraining Post Op Education Discharge Planning Hot or Cold Pack Neuromuscular Re-ed Coordination Retraining Manual Therapy Other Recommendations and Next Treatment ambulation, caregiver training Focus , stair training Recommendations To Nursing Amount of Assist Needed 2 Person Assist Discharge Recommendations PT Discharge Recommendations Home with 02/02 Assist Home Health SNF Rehab
--- NOTE | 2018-04-07 15:24 | CM.DANOTE ---
DCP Chart Review: Patient is a 77 year old female who was admitted today on 04/07/18 for TLIF. Pt has [facility] and [employer] for insurance and her PCP is Dr. Perez. EMR was reviewed. SW attempted to meet with pt bedside for assessment but pt was just admitted today and now off the floor for surgery. Plan: SW to follow for bedside assessment tomorrow since pt is off the floor for surgery today and for PT eval to determine d/c planning needs. VIGNESH Herrera
[2018-04-07] MEDS: ONDANSETRON 4 MG/2 ML INJ IV (15:59)
[2018-04-07] MEDS: OXYCODONE IR 5 MG TABLET 10 MG PO ×2 (17:55→20:59)
[2018-04-07] MEDS: METOPROLOL ER 50 MG TABLET PO (20:58)
[2018-04-07] MEDS: NITROFURANTOIN 50 MG CAPSULE PO (20:58)
[2018-04-07] MEDS: TIZANIDINE 4 MG TABLET PO (20:58)
[2018-04-07] MEDS: DOCUSATE 100 MG CAPSULE PO (20:58)
[2018-04-07] MEDS: SIMVASTATIN 40 MG TABLET PO (20:58)
[2018-04-07] MEDS: SENNOSIDES 8.6 MG TABLET 17.2 MG PO (20:59)
--- NOTE | 2018-04-07 22:22 | PC.NURSE ---
04/07 2222; Pt is alert and oriented x4, VSS and utilizing 2L NC at rest, unable to maintain acceptable oxygen saturation levels while asleep. CMS is intact with reported neuropathy at baseline but improved movement of LLE since surgery. Dressing is C/D/I and tolerating PO intake. Edema to BLE which pt states to be baseline. tolerating oral PRN analgesics
[2018-04-08] VITALS (10 sets, daily range): BP systolic 124–160; BP diastolic 49–62; PULSE 62–67; RESP 14–16; TEMP 36.3–36.9; O2SAT 97–100
[2018-04-08] MEDS: OXYCODONE IR 5 MG TABLET 10 MG PO ×6 (00:07→23:46)
[2018-04-08] MEDS: hydrOXYzine pamoate 25 MG CAPSULE PO ×4 (00:09→23:55)
[2018-04-08] MEDS: PANTOPRAZOLE 20 MG TABLET PO (06:18)
[2018-04-08] MEDS: ACETAMINOPHEN 325 MG TABLET 650 MG PO ×2 (06:20→20:04)
[2018-04-08 07:16] LABS: Hematocrit 28.8 % (36-46); Hemoglobin 9.7 g/dL (12.0-16.0)
[2018-04-08] MEDS: hydroCHLOROthiazide 25 MG TABLET PO (09:09)
[2018-04-08] MEDS: MULTIVITAMIN 1 TABLET 1 TAB PO (09:09)
[2018-04-08] MEDS: POTASSIUM CHLORIDE 20 MEQ TAB PO (09:09)
[2018-04-08] MEDS: DOCUSATE 100 MG CAPSULE PO ×2 (09:10→20:01)
--- NOTE | 2018-04-08 09:30 | PT.IPTN ---
Current Diagnoses Other spondylosis with radiculopathy, lumbar region (04/07/18) Spinal stenosis, lumbar region with neurogenic claudication (04/07/18) Surgery Performed Operation Date: 04/07/18 07:45 Actual Procedures p L3-4, L4-5 TLIF w/Posterior Instru. - Leticia Park MD Physical Therapy Treatment Note M2 PT-IP Current Condition Start: 04/07/18 17:43 Freq: NEEDED Status: Active Protocol: Document 04/07/18 15:20 AB (Rec: 04/07/18 18:00 AB [id number]) Physical Therapy Current Condition Current Condition Evaluation Date 04/07/18 Treatment Diagnosis L3-4, L4-5 fusion, laminectomy ; difficulty in walking Onset Date 04/07/18 Precautions Lumbar Precautions Log Roll No Twisting Limit Bending Lifting Restriction of 10 lbs Gait Belt above Incisional Area Other Precautions Falls M3 PT-IP Subjective Start: 04/07/18 17:43 Freq: NEEDED Status: Active Protocol: Document 04/08/18 09:30 AB (Rec: 04/08/18 12:30 AB [id number]) Subjective Physical Therapy Visit Type Type Treatment Note Visit Start Time 09:30 Visit Stop Time 10:21 Total Visit Minutes 51 Number of PEDAL ASSEMBLER Visits 0 Physical Therapy Visit Comments Patient Comments pt agreeable to do PT Therapy Pain Assessment Pain When Pain Assessed At Rest Pain Present Pain Present Pain Reported Location Back Intensity 6 Scale Used Numeric (1 - 10) Pain Behaviors Guarding M4 PT-IP Mobility and Gait Start: 04/07/18 17:43 Freq: NEEDED Status: Active Protocol: Document 04/08/18 09:30 AB (Rec: 04/08/18 12:30 AB [id number]) PT-Bed Mobility Assessment Rolling Type of Rolling Log Rolling Level of Assist Maximal Assistance Supine to Sit Supine to Sit Maximum Assistance PT-Transfer Assessment Sit to and From Stand Sit to and from Stand Moderate Assistance Maximum Assistance 1 Person Assistance Use of Upper Extremities Equipment Transfer Assistive Device Gait Belt Front Wheeled Walker Orthotic/Prosthetic Devices or Brace: No Transfers Transfer Destination Chair Transfer Technique Stand Step Pivot Transfer Ability Level of Assist Moderate Assistance 1 Person Assistance Comments Mobility Comments pt completed sit <>stand x 5 reps and requiring mod to max A and max cues for techniques and safety. pt with increase posterior LOB with initial standing requiring mod to max A to rebalance and cues. Gait Assessment Gait Gait Assistance Required: Moderate Assistance Distance (Feet) 10 Able to Maintain Weight Bearing Status Yes During Gait Assistive Devices Assistive Device Gait Belt Front Wheeled Walker Orthotic/Prosthetic Devices or Brace: No Gait Deviations General Gait Pattern Decreased Stride Length Decreased Feet Clearance Step-to Gait Factors Limiting Gait Function Factors Limiting Gait Function Decreased Activity Tolerance Decreased Strength Difficulty Following Directions Limited Range of Motion Pain Poor Balance Poor Safety Awareness M5 PT-IP Objective Assessments Start: 04/07/18 17:43 Freq: NEEDED Status: Active Protocol: Document 04/07/18 15:20 AB (Rec: 04/07/18 18:00 AB [id number]) Orientation Orientation/Cognition Level of Alertness Alert Orientation Name Age Birthday Month Date Year Day of Week Place Situation Safety Awareness Decreased Safety Awareness Gross Range of Motion Lower Extremity ROM Assessment Within Functional Limits Strength Lower Extremity Strength Assessment Bilaterally Impaired Comments Strength Comments LLE weaker than RLE L knee extension: 3+/5 R knee extension: 4-/5 Sensation Assessment Sensation Gross Sensation Right LE Impaired Left LE Impaired Sensation Description Numbness Comments Sensation Comments decrease LE sensation on B feet especially on lateral side of feet close of the 5th toe M6 PT-IP Treatment Start: 04/07/18 17:43 Freq: NEEDED Status: Active Protocol: Document 04/08/18 09:30 AB (Rec: 04/08/18 12:30 AB [id number]) Physical Therapy Treatment Education Education Provided Precautions Safety M7 PT-IP Assessment and Plan Start: 04/07/18 17:43 Freq: NEEDED Status: Active Protocol: Document 04/08/18 09:30 AB (Rec: 04/08/18 12:30 AB [id number]) PT Summary Assessment and Plan Potential Rehabilitation Potential Fair Summary Impairments Pain ROM Strength Balance Coordination Sensation Tone Cognition Bed Mobility Transfers Gait Activity Tolerance Progress Towards Goals Slow Progress due to Pain Slow Progress due to Medical Issues Slow Progress due to Activity Tolerance Assessment Summary pt requiring mod to max A with mobility. caregiver training will be conducted this afternoon and determine if spouse will be able to assist pt safely. pt also has a step to enter the house and stair climbing still has to be assess. pt made some progress with ambulation but only tolerated ~ 10 ft using FWW with mod A. will continue to assess. Goals Bed Mobility Goal Minimal Assistance Transfer Goal Minimal Assistance Gait Goal Minimal Assistance Gait Distance 75 Other Goals up/down 1 step using FWW min A Days to Meet Goals 5 Frequency of Treatment Frequency Of Treatment Twice a Day Treatment Plan Physical Therapy Treatment Plan Bed Mobility Training Transfer Training Gait Training Therapeutic Exercise Balance Retraining Post Op Education Discharge Planning Hot or Cold Pack Neuromuscular Re-ed Coordination Retraining Manual Therapy Other Recommendations and Next Treatment ambulation, caregiver training Focus , stair training Recommendations To Nursing Amount of Assist Needed 2 Person Assist Discharge Recommendations PT Discharge Recommendations Home with 02/02 Assist Home Health SNF Rehab
--- NOTE | 2018-04-08 11:05 | PC.NURSE ---
Addendum entered by Chasity Strickland R.N. 04/08/18 12:48: Pt medicated with oxycodone at 1217. Has been helpful for 01/19 pain, 04/21 pain. Original Note: Addendum entered by Chasity Strickland R.N. 04/08/18 12:39: Pt given her Metoprolol and micardis around 1210. Given later around lunch as bp dyastolic was in the 40s. BP around noon 120s/66. Pt did refuse her lasix. Original Note: day shift note- Pt had difficulty with RN and SUPERINTENDENT RECREATION getting her up to chair for breakfast this morning, Pt stayed in bed to eat breakfast, was given percolone for pain and then PT got pt up to the chair. She is resting comfortably at this time.
--- NOTE | 2018-04-08 12:12 | PM.PNPO.1 ---
Subjective Date Patient Seen: 04/08/18 Time Patient Seen: 07:20 Interval history: Patient is post op day 1 status post L3-L4 and L4-L5 TLIF w/posterior instrumentation with Dr. Pakr. Patient is laying in bed comfortably with no signs of distress. She reports back spasms when she rolls or sits up in bed. She reports that the back spasms started this morning. Patient has started PT. Patient reports her pain is manageable at this time with oxycodone 10mg. Patient reports chronic MS. [place] intact. She denies and SOB, chest pain, nausea, vomiting, fever or chills. Exam Vital Signs (past 8 hours): - 04/08/18 07:10 04/08/18 08:00 04/08/18 09:19 Temperature 97.8 F Pulse Rate 64 62 Respiratory Rate 16 16 Blood Pressure 153/49 H Pulse Oximetry 100 97 97 04/08/18 11:43 Temperature 97.9 F Pulse Rate 62 Respiratory Rate 14 Blood Pressure 129/51 L Pulse Oximetry 100 Fraction of Inspired Oxygen 21 Oxygen Delivery Method Room Air Oxygen Flow Rate 0 Narrative Exam Narrative: Patient is AOx3. She is a well developed woman in no acute distress. Dorsalis pedis and radial pulses 2+ and symmetric bilaterally. Muscle strength 5/5 in dorsiflexin, plantarflexion and string studies director bilaterally. No neurological deficits noted. Sensation to light touch intact in LE. Lumbar dressing CDI. DVT compression devices intact. L calf is slight tender to palpation, otherwise calfs are compressible and soft bilaterally. [place] intact. Objective Labs Result Diagrams: 04/08/18 06:55 Labs: Laboratory Results - last 24 hr 04/08/18 06:55 Hgb 9.7 L Hct 28.8 L Assessment & Plan Post-op Postoperative Procedures Operation Date: 04/07/18 07:45 Actual Procedures Side Surgeon p L3-4, L4-5 TLIF w/Posterior Instru. Leticia Park MD Postoperative day: 1 Postoperative status: doing well Postoperative plan: routine post-op care Postoperative plan narrative: Continue to mobilize with PT, sitting in chair and ambulating. Continue pain management. D/C [place] once more ambulatory. Likely to be discharged home w/home health tomorrow. Time Spent With Patient less than 15 minutes
[2018-04-08] MEDS: METOPROLOL ER 50 MG TABLET PO ×2 (12:24→20:01)
[2018-04-08] MEDS: TELMISARTAN 40 MG TABLET 80 MG PO (12:24)
--- NOTE | 2018-04-08 12:26 | P.PN_ITS ---
Subjective Date Patient Seen: 04/08/18 Time Patient Seen: 07:20 Interval history: Patient is post op day 1 status post L3-L4 and L4-L5 TLIF w/ posterior instrumentation with Dr. Park. Patient is laying in bed comfortably with no signs of distress. She reports back spasms when she rolls or sits up in bed. She reports that the back spasms started this morning. Patient has started PT. Patient reports her pain is manageable at this time with oxycodone 10mg. Patient reports chronic MS. [place] intact. She denies and SOB, chest pain , nausea, vomiting, fever or chills. Exam Vital Signs (past 8 hours): - 04/08/18 07:10 04/08/18 08:00 04/08/18 09:19 Temperature 97.8 F Pulse Rate 64 62 Respiratory Rate 16 16 Blood Pressure 153/49 H Pulse Oximetry 100 97 97 04/08/18 11:43 Temperature 97.9 F Pulse Rate 62 Respiratory Rate 14 Blood Pressure 129/51 L Pulse Oximetry 100 Fraction of Inspired Oxygen 21 Oxygen Delivery Method Room Air Oxygen Flow Rate 0 Narrative Exam Narrative: Patient is AOx3. She is a well developed woman in no acute distress. Dorsalis pedis and radial pulses 2+ and symmetric bilaterally. Muscle strength 5/5 in dorsiflexin, plantarflexion and carpentry professional bilaterally. No neurological deficits noted. Sensation to light touch intact in LE. Lumbar dressing CDI. DVT compression devices intact. L calf is slight tender to palpation, otherwise calfs are compressible and soft bilaterally. [place] intact. Objective Labs Result Diagrams: 04/08/18 06:55 Labs: Laboratory Results - last 24 hr 04/08/18 06:55 Hgb 9.7 L Hct 28.8 L Assessment & Plan Post-op Postoperative Procedures Operation Date: 04/07/18 07:45 Actual Procedures Side Surgeon p L3-4, L4-5 TLIF w/Posterior Instru. Leticia Park MD Postoperative day: 1 Postoperative status: doing well Postoperative plan: routine post-op care Postoperative plan narrative: Continue to mobilize with PT, sitting in chair and ambulating. Continue pain management. D/C [place] once more ambulatory. Likely to be discharged home w/home health tomorrow. Time Spent With Patient less than 15 minutes
--- NOTE | 2018-04-08 14:25 | OT.IP.EVAL ---
Current Diagnoses Other spondylosis with radiculopathy, lumbar region (04/07/18) Spinal stenosis, lumbar region with neurogenic claudication (04/07/18) Surgery Performed Operation Date: 04/07/18 07:45 Actual Procedures p L3-4, L4-5 TLIF w/Posterior Instru. - Leticia Park MD Past Medical History (Last Reviewed 04/01/18 @ 15:19 by Cyndy Perla LPN) Anxiety (Acute) Arthritis (Acute) Blister (Acute) Eczema of both hands (Acute) Edema (Acute) Frequent UTI (Acute) GERD (gastroesophageal reflux disease) (Acute) Asthma (Chronic) Diastolic heart failure (Chronic) Hyperlipidemia (Chronic) Hypertension (Chronic) Multiple sclerosis (Chronic) RLS (restless legs syndrome) (Chronic) Retention of urine, unspecified (Chronic) Urge and stress incontinence (Chronic) Surgical History (Last Reviewed 04/01/18 @ 15:19 by Cyndy Perla LPN) Hx of foot surgery (Acute) Hx of tonsillectomy (Acute) S/P wrist surgery (Acute) Status post bilateral cataract extraction (Acute) H/O arthroscopic knee surgery (Resolved) Status post hysterectomy with oophorectomy (Resolved) Status post laparoscopic cholecystectomy (Resolved) Occupational Therapy Inpatient Evaluation/Re-Eval M1 PT/OT-IP Prior Functional Status Start: 04/07/18 17:43 Freq: NEEDED Status: Active Protocol: Document 04/08/18 14:25 PJM (Rec: 04/08/18 14:52 PJM [id number]) Medical Review Prior Functional Status Medical History Reviewed Yes Diet/Fluid Consistency Regular Communication WNL Mobility and Gait pt stated that she is modified independent with ambulation using 4WW. Pt has been using 4WW for past 6 months due to back pain but was able to use a SPC also. Pt has had 3 falls in 3 months. Activities of Daily Living and IADL's spouse provides SBA to pt for showers, assists pt with tying her shoe laces; pt normally wears compression hose, will bring them in Social History Household Members spouse Living Arrangements House Number of Floors (Floors) One Floor Number of Stairs To Enter/Railing? 1 step to enter, no rail Home Environment High Toilet Walk in Shower Home Equipment Front Wheel Walker Four Wheel Walker Straight Cane Bedside Commode Hand Held Shower Long Handled Sponge Employment Status Retired Additional Social History Comment pt has an adjustable bed, pt has BSC stored in attic which son can get down. Pt plans to use this as shower seat M2 OT-IP Current Condition Start: 04/08/18 14:33 Freq: Status: Active Protocol: Document 04/08/18 14:25 PJM (Rec: 04/08/18 14:52 PJM NR) Occupational Therapy Current Condition Current Condition Evaluation Date 04/08/18 Treatment Diagnosis decreased self care, functional mobility s/p L3-4, L4-5 TLIF Post Operative Precautions Lumbar Precautions Log Roll No Twisting Limit Bending Lifting Restriction of 10 lbs Gait Belt above Incisional Area Other Precautions Falls M3 OT- IP Subjective and Pain Start: 04/08/18 14:33 Freq: Status: Active Protocol: Document 04/08/18 14:25 PJM (Rec: 04/08/18 14:52 PJM NR) OT- Subjective Occupational Therapy Visit Type Type Initial Evaluation Visit Start Time 13:50 Visit Stop Time 14:25 Total Visit Minutes 35 Notes Pt's here for education today Occupational Therapy Visit Comments Patient/Caregiver Goals to go home and be independent; be able to garden OT Pain Assessment Pain When Pain Assessed After Treatment Pain Present Pain Present Pain Reported Location Back Intensity 6 Scale Used Numeric (1 - 10) Description Aching Acute Cramping Pain Behaviors Facial Grimacing Guarding Management Techniques Distraction Re-positioning Timing of Activity with Medications M4 OT- IP ADL's Start: 04/08/18 14:33 Freq: Status: Active Protocol: Document 04/08/18 14:25 PJM (Rec: 04/08/18 14:52 PJ [id number]) OT [id number] General Evaluation Self-Feeding Ability Independent OT ADL-Grooming General Evaluation Grooming Ability Standby Assistance Areas Needing Assistance Combing/Brushing Hair Face Washing Comments OT Grooming Comments seated in chair OT ADL-Oral Care General Eval Oral Care Ability Standby Assistance Areas of Assistance Retrieving/Set-Up of Items Devices Oral Care Devices Toothbrush Comments Oral Care Comments seated in chair OT ADL-Dressing General Eval Lower Body Dressing Ability Maximum Assistance Areas Needing Assistance Underpants/Brief Pants/Shorts Socks Shoes Support Stockings Assistive Devices Dressing Assistive Devices Long Handled Shoe Horn Comments OT Dressing Comments Provided education re: use of talent scout and sock aid for lower body dressing within lumbar spine precautions. will bring in pt's compression hose. Pt may need wide sock aid.She has some slip on shoes and already has long shoe horn. OT ADL-Toileting General Evaluation Toileting Ability Total Assistance Areas Needing Assistance Empty Catheter or Colostomy Comments OT Toileting Comments [place] still in place. pt plans to borrow tong style toilet paper aid from her sister who is no longer using it OT ADL-Bathing Comments OT Bathing Comments to be assessed as activity tolerance improves; pt plans to use BSC as shower seat in shower stall with 2 sliding doors; plans to install grab bars M5 OT- IP IADL's Start: 04/08/18 14:33 Freq: Status: Active Protocol: Document 04/08/18 14:25 PJM (Rec: 04/08/18 14:52 [facility] [id number]) OT-Instrumental Activities of Daily Living Deficits IADL Deficits Identified Deficits Home Safety Awareness Awareness of Need for Assistance at Home Good Awareness Ability to Problem Solve Emergency Able to Problem Solve Situations Medication Management Medication Management No Deficits Identified Money Management Money Management No Deficits Identified Meal Preparation Meal Preparation Caregiver Provides Assist Meal Preparation Comments does most of cooking at home Director Of Patient Financial Services Director Of Patient Financial Services Caregiver Provides Assist Director Of Patient Financial Services Comments and daughter in law to assist PRN Driving Driving Caregiver Provides Assist Driving Comments to assist until pt able M6 OT- IP Functional Cognition Start: 04/08/18 14:33 Freq: Status: Active Protocol: Document 04/08/18 14:25 PJM (Rec: 04/08/18 14:52 [facility] [id number]) Cognitive Factors Limiting Selfcare Function Cognitive Ability Level of Alertness Drowsy Patient Orientation Name Age Birthday Month Date Year Day of Week Place Situation Attention Span Ability Capable of Focused Attention Ability to Follow Commands Able to Follow One Step Commands Memory Description No Deficits Noted Safety Awareness Underestimates Need for Assistance Problem Solving Ability Needs Assist to Identify Solutions Cognitive Comments Cognitive Assessment Comments appears WFL OT- Vision and Hearing OT- Hearing Assessment OT- Hearing Assessment WFL OT- Vision Assessment Visual Acuity Glasses For Reading Vision Assessment Comments WFL, pt denies any recent changes M7 OT- IP Mobility and Balance Start: 04/08/18 14:33 Freq: Status: Active Protocol: Document 04/08/18 14:25 PJM (Rec: 04/08/18 14:52 [facility] [id number]) OT-Transfer Assessment Comments Mobility Comments See P.T. notes, pt just got back to bed with nursing OT- Gait Assessment Comments Gait Ability Comments see P.T. notes OT- Balance Assessment Comments Other Balance Tests/Deviations/Treatment see P.T. notes : M8 OT- IP Objective Assessments Start: 04/08/18 14:33 Freq: Status: Active Protocol: Document 04/08/18 14:25 PJM (Rec: 04/08/18 14:52 [facility] [id number]) OT Gross Range of Motion Upper Extremity Range of Motion Assessment Within Functional Limits OT Strength Upper Extremity Strength Assessment Within Functional Limits Comments Strength Comments Pt feels LUE is weaker than right from her M.S. but presents with equal vacuum drier tender strength today. OT- Coordination Assessment Comments Coordination Comments BUE WFL OT-Muscle Tone Assessment Muscle Tone WNL Yes OT Sensation Assessment Comments Summary Comments Pt reports intermittent numbness in L hand, especially at night which is relieved by night wrist cock up splint. Pt also has numbness in R hand, but none today M9 OT- IP Assessment and Plan Start: 04/08/18 14:33 Freq: Status: Active Protocol: Document 04/08/18 14:25 PJM (Rec: 04/08/18 14:52 [facility] [id number]) OT Summary Assessment and Plan Potential Rehabilitation Potential Good Analytic Complexity at Evaluation Low Summary OT Impairments Pain Strength Balance Functional Mobility Grooming Dressing Toileting Bathing Toilet Transfers Shower Transfers Assessment Summary Low complexity OT assessment completed with emphasis on self care skills within lumbar spine precautions. Pt currently presents with performance deficits in all functional mobility/transfers and is progressing slowly with P.T. She also has performance deficits in standing grooming , lower body dressing, bathing, and toileting. Supportive here today but uses cane for some mobility. Pt may need SNF at d/c vs home with home health pending her progress and 's ability to safely assist her. Goals Grooming Goal Standby Assistance Dressing Goal Standby Assistance Long Handled Shoe Horn Wastewater Operator Sock Aid Toileting Goal Standby Assistance Toilet Paper Aid Bathing Goal Standby Assistance Grab Bars Hand Held Shower Sprayer Long Handled Sponge or [place] Toilet Transfer Goal Standby Assistance ADA High Toilet Counter Next to Toilet Shower Transfer Goal Contact Guard Assistance Patient/Caregiver Education Goal Demonstrate Post-Op Precautions Demonstrate Energy Conservation and Pacing Caregiver Independent Assisting Patient Days to Meet Goals 3 Frequency of Treatment Frequency Of Treatment Once a Day Treatment Plan OT Treatment Plan ADL Training Functional Mobility Patient/Family Education Discharge Planning Discharge Recommendations OT Discharge Recommendations SNF Rehab Other Discharge Recommendations vs home with HH pending progress and 's ability to safely assist
--- NOTE | 2018-04-08 16:10 | PT.IPTN ---
Current Diagnoses Other spondylosis with radiculopathy, lumbar region (04/07/18) Spinal stenosis, lumbar region with neurogenic claudication (04/07/18) Surgery Performed Operation Date: 04/07/18 07:45 Actual Procedures p L3-4, L4-5 TLIF w/Posterior Instru. - Leticia Park MD Physical Therapy Treatment Note M2 PT-IP Current Condition Start: 04/07/18 17:43 Freq: NEEDED Status: Active Protocol: Document 04/07/18 15:20 AB (Rec: 04/07/18 18:00 AB [id number]) Physical Therapy Current Condition Current Condition Evaluation Date 04/07/18 Treatment Diagnosis L3-4, L4-5 fusion, laminectomy ; difficulty in walking Onset Date 04/07/18 Precautions Lumbar Precautions Log Roll No Twisting Limit Bending Lifting Restriction of 10 lbs Gait Belt above Incisional Area Other Precautions Falls M3 PT-IP Subjective Start: 04/07/18 17:43 Freq: NEEDED Status: Active Protocol: Document 04/08/18 16:10 AB (Rec: 04/08/18 17:36 AB [id number]) Subjective Physical Therapy Visit Type Type Treatment Note Visit Start Time 16:10 Visit Stop Time 16:41 Total Visit Minutes 31 Number of CANDY COOKER HELPER Visits 0 Physical Therapy Visit Comments Patient Comments i have a lot of pain and feel really weak Therapy Pain Assessment Pain When Pain Assessed At Rest Pain Present Pain Present Pain Reported Location Back Scale Used way up there per pt Pain Management Techniques Re-positioning Timing of Activity with Medications M4 PT-IP Mobility and Gait Start: 04/07/18 17:43 Freq: NEEDED Status: Active Protocol: Document 04/08/18 16:10 AB (Rec: 04/08/18 17:36 AB [id number]) PT-Bed Mobility Assessment Rolling Type of Rolling Log Rolling Level of Assist Maximal Assistance 1 Person Assistance 2 Person Assistance Supine to Sit Supine to Sit Maximum Assistance 1 Person Assistance 2 Person Assistance Sit to Supine Sit to Supine Maximum Assistance 2 Person Assistance Scooting Scooting to Edge of Bed Maximum Assistance Scooting Up and Down in Bed Maximum Assistance PT-Transfer Assessment Sit to and From Stand Sit to and from Stand Maximum Assistance 1 Person Assistance Use of Upper Extremities Equipment Transfer Assistive Device Bed Rail Front Wheeled Walker Orthotic/Prosthetic Devices or Brace: No Comments Mobility Comments pt took side steps towards the HOB using FWW requiring max A and max cues. Gait Assessment Gait Gait Assistance Required: Maximum Assistance 1 Person Assist Distance (Feet) 3 Able to Maintain Weight Bearing Status Yes During Gait Assistive Devices Assistive Device Gait Belt Front Wheeled Walker Orthotic/Prosthetic Devices or Brace: No Gait Deviations General Gait Pattern Decreased Stride Length Decreased Feet Clearance Factors Limiting Gait Function Factors Limiting Gait Function Decreased Activity Tolerance Decreased Sensation Decreased Strength Difficulty Following Directions Limited Range of Motion Pain Poor Balance Poor Safety Awareness Comments Gait Comments pt pt with difficulty following dierctons this afternoon and with c/o increase back pain and weakness. Caregiver training initiated but spouse was unable to assist pt this afternoon. pt was only able to take side steps towards the HOB using FWW max A and max cues with increase bilateral knee flexion and pt's knees tends to lean on edge of bed for support and increase posterior LOB requiring mod to max to maintain standing balance. M5 PT-IP Objective Assessments Start: 04/07/18 17:43 Freq: NEEDED Status: Active Protocol: Document 04/07/18 15:20 AB (Rec: 04/07/18 18:00 AB [id number]) Orientation Orientation/Cognition Level of Alertness Alert Orientation Name Age Birthday Month Date Year Day of Week Place Situation Safety Awareness Decreased Safety Awareness Gross Range of Motion Lower Extremity ROM Assessment Within Functional Limits Strength Lower Extremity Strength Assessment Bilaterally Impaired Comments Strength Comments LLE weaker than RLE L knee extension: 3+/5 R knee extension: 4-/5 Sensation Assessment Sensation Gross Sensation Right LE Impaired Left LE Impaired Sensation Description Numbness Comments Sensation Comments decrease LE sensation on B feet especially on lateral side of feet close of the 5th toe M6 PT-IP Treatment Start: 04/07/18 17:43 Freq: NEEDED Status: Active Protocol: Document 04/08/18 16:10 AB (Rec: 04/08/18 17:36 AB [id number]) Physical Therapy Treatment Education Education Provided Precautions Weight Bearing Status Post-Op Packet Safety M7 PT-IP Assessment and Plan Start: 04/07/18 17:43 Freq: NEEDED Status: Active Protocol: Document 04/08/18 16:10 AB (Rec: 04/08/18 17:36 AB [id number]) PT Summary Assessment and Plan Potential Rehabilitation Potential Fair Summary Impairments Pain ROM Strength Balance Coordination Sensation Tone Cognition Bed Mobility Transfers Gait Activity Tolerance Progress Towards Goals Slow Progress due to Pain Slow Progress due to Medical Issues Assessment Summary caregiver training initiated but spouse is not able to assist pt. pt requiring 1-2 person extensive assist and required more assistance this afternoon compared to this morning. Pt also has MS contributing to current medical condition. pt will need SNF rehab to improve strength and functional mobility. Goals Bed Mobility Goal Minimal Assistance Transfer Goal Minimal Assistance Gait Goal Minimal Assistance Gait Distance 75 Other Goals up/down 1 step using FWW min A Days to Meet Goals 5 Frequency of Treatment Frequency Of Treatment Twice a Day Treatment Plan Physical Therapy Treatment Plan Bed Mobility Training Transfer Training Gait Training Therapeutic Exercise Balance Retraining Post Op Education Discharge Planning Hot or Cold Pack Neuromuscular Re-ed Coordination Retraining Manual Therapy Other Recommendations and Next Treatment ambulation, caregiver training Focus , stair training Recommendations To Nursing Amount of Assist Needed 2 Person Assist Discharge Recommendations PT Discharge Recommendations SNF Rehab
[2018-04-08] MEDS: SENNOSIDES 8.6 MG TABLET 17.2 MG PO (20:04)
[2018-04-08] MEDS: NITROFURANTOIN 50 MG CAPSULE PO (20:04)
[2018-04-08] MEDS: SIMVASTATIN 40 MG TABLET PO (20:04)
[2018-04-09] VITALS (8 sets, daily range): BP systolic 122–182; BP diastolic 56–98; PULSE 61–67; RESP 14–20; TEMP 36.7–37.4; O2SAT 93–100
[2018-04-09] MEDS: OXYCODONE IR 5 MG TABLET 10 MG PO ×4 (05:05→21:50)
[2018-04-09] MEDS: ACETAMINOPHEN 325 MG TABLET 650 MG PO ×3 (05:05→21:51)
[2018-04-09] MEDS: PANTOPRAZOLE 20 MG TABLET PO (06:06)
[2018-04-09] MEDS: METOPROLOL ER 50 MG TABLET PO ×2 (09:04→21:51)
[2018-04-09] MEDS: hydroCHLOROthiazide 25 MG TABLET PO (09:04)
[2018-04-09] MEDS: DOCUSATE 100 MG CAPSULE PO ×2 (09:04→21:51)
[2018-04-09] MEDS: FUROSEMIDE 40 MG TABLET PO (09:04)
[2018-04-09] MEDS: TELMISARTAN 40 MG TABLET 80 MG PO (09:05)
[2018-04-09] MEDS: MULTIVITAMIN 1 TABLET 1 TAB PO (09:05)
[2018-04-09] MEDS: POTASSIUM CHLORIDE 20 MEQ TAB PO (09:05)
--- NOTE | 2018-04-09 10:13 | PM.PNPO.1 ---
Subjective Date Patient Seen: 04/09/18 Interval history: Patient seen bedside s/p L3-4, L4-5 TLIF POD #2. Patient doing well, pain is well controlled, mobility is still limited and made more difficult by her underlying MS. Denies CP, SOB, neurological deficits. Tentative plan is d/c to SNF this weekend. Exam Vital Signs (past 8 hours): - 04/09/18 04:20 04/09/18 07:00 Temperature 98.1 F 98.5 F Pulse Rate 62 61 Respiratory Rate 18 16 Blood Pressure 137/57 L 131/57 L Pulse Oximetry 99 100 Fraction of Inspired Oxygen 21 Oxygen Delivery Method Nasal Cannula Oxygen Flow Rate 0 Narrative Exam Narrative: WDWN NAD A&Ox3. Surgical dressing CDI with minimal erythema/drainage. Global weakness on left side that was present prior to surgery. Calves are soft and compressible. Objective Labs Result Diagrams: 04/08/18 06:55 Assessment & Plan Post-op Postoperative Procedures Operation Date: 04/07/18 07:45 Actual Procedures Side Surgeon p L3-4, L4-5 TLIF w/Posterior Instru. Leticia Park MD Postoperative day: 2 Postoperative status: doing well Postoperative plan: routine post-op care Postoperative plan narrative: Doing well, continue PT/OT, d/c to SNF hopefully this weekend. Time Spent With Patient less than 15 minutes
--- NOTE | 2018-04-09 10:16 | P.PN_ITS ---
Subjective Date Patient Seen: 04/09/18 Interval history: Patient seen bedside s/p L3-4, L4-5 TLIF POD #2. Patient doing well, pain is well controlled, mobility is still limited and made more difficult by her underlying MS. Denies CP, SOB, neurological deficits. Tentative plan is d/c to SNF this weekend. Exam Vital Signs (past 8 hours): - 04/09/18 04:20 04/09/18 07:00 Temperature 98.1 F 98.5 F Pulse Rate 62 61 Respiratory Rate 18 16 Blood Pressure 137/57 L 131/57 L Pulse Oximetry 99 100 Fraction of Inspired Oxygen 21 Oxygen Delivery Method Nasal Cannula Oxygen Flow Rate 0 Narrative Exam Narrative: WDWN NAD A&Ox3. Surgical dressing CDI with minimal erythema/ drainage. Global weakness on left side that was present prior to surgery. Calves are soft and compressible. Objective Labs Result Diagrams: 04/08/18 06:55 Assessment & Plan Post-op Postoperative Procedures Operation Date: 04/07/18 07:45 Actual Procedures Side Surgeon p L3-4, L4-5 TLIF w/Posterior Instru. Leticia Park MD Postoperative day: 2 Postoperative status: doing well Postoperative plan: routine post-op care Postoperative plan narrative: Doing well, continue PT/OT, d/c to SNF hopefully this weekend. Time Spent With Patient less than 15 minutes
--- NOTE | 2018-04-09 11:20 | PT.IPTN ---
Current Diagnoses Other spondylosis with radiculopathy, lumbar region (04/07/18) Spinal stenosis, lumbar region with neurogenic claudication (04/07/18) Surgery Performed Operation Date: 04/07/18 07:45 Actual Procedures p L3-4, L4-5 TLIF w/Posterior Instru. - Leticia Park MD Physical Therapy Treatment Note M2 PT-IP Current Condition Start: 04/07/18 17:43 Freq: NEEDED Status: Active Protocol: Document 04/10/18 13:41 RCC (Rec: 04/10/18 14:28 RCC [id number]) Physical Therapy Current Condition Current Condition Evaluation Date 04/07/18 Treatment Diagnosis L3-4, L4-5 fusion, laminectomy ; difficulty in walking Onset Date 04/07/18 Precautions Lumbar Precautions Log Roll No Twisting Limit Bending Lifting Restriction of 10 lbs Gait Belt above Incisional Area Other Precautions Falls M3 PT-IP Subjective Start: 04/07/18 17:43 Freq: NEEDED Status: Active Protocol: Document Subjective Physical Therapy Visit Type Type Treatment Note Visit Start Time 1050 Visit Stop Time 1115 Number of DIRECTOR OF PARKS AND RECREATION Visits 0 Physical Therapy Visit Comments Patient Comments better than yesterday Therapy Pain Assessment Pain When Pain Assessed During Mobility Pain Present Pain Present Pain Reported Location Back Intensity 4 Scale Used Numeric (1 - 10) Description Spasm Pain Management Techniques Timing of Activity with Medications M4 PT-IP Mobility and Gait Start: 04/07/18 17:43 Freq: NEEDED Status: Active Protocol: Document 04/12/18 08:45 CLB (Rec: 04/12/18 09:35 CLB [id number]) Bed mobilty Log roll techique min to mod A 2 PA PT-Transfer Assessment Sit to and From Stand Sit to and from Stand mod A Use of Upper Extremities Equipment Transfer Assistive Device Gait Belt Front Wheeled Walker Orthotic/Prosthetic Devices or Brace: No Transfers Transfer Destination Chair Transfer Technique Stand Step Pivot Transfer Ability Level of Assist 2PA min A Comments Mobility Comments Pt requires cueing to avoid locking knees Gait Assessment Gait Gait Assistance Required: min mod A 2 Person Assist Distance (Feet) 3 Assistive Devices Assistive Device Gait Belt Front Wheeled Walker Orthotic/Prosthetic Devices or Brace: No Gait Deviations General Gait Pattern Decreased Stride Length Decreased Feet Clearance Factors Limiting Gait Function Factors Limiting Gait Function Decreased Activity Tolerance Decreased Strength Pain Comments Gait Comments Only able to take a few steps fwd before turning to chair M5 PT-IP Objective Assessments Start: 04/07/18 17:43 Freq: NEEDED Status: Active Protocol: Document 04/07/18 15:20 AB (Rec: 04/07/18 18:00 AB [id number]) Orientation Orientation/Cognition Level of Alertness Alert Orientation Name Age Birthday Month Date Year Day of Week Place Situation Safety Awareness Decreased Safety Awareness Gross Range of Motion Lower Extremity ROM Assessment Within Functional Limits Strength Lower Extremity Strength Assessment Bilaterally Impaired Comments Strength Comments LLE weaker than RLE L knee extension: 3+/5 R knee extension: 4-/5 Sensation Assessment Sensation Gross Sensation Right LE Impaired Left LE Impaired Sensation Description Numbness Comments Sensation Comments decrease LE sensation on B feet especially on lateral side of feet close of the 5th toe M6 PT-IP Treatment Start: 04/07/18 17:43 Freq: NEEDED Status: Active Protocol: Document 04/10/18 13:41 RCC (Rec: 04/10/18 14:28 RCC [id number]) Physical Therapy Treatment Education Education Provided Precautions Safety M7 PT-IP Assessment and Plan Start: 04/07/18 17:43 Freq: NEEDED Status: Active Protocol: Document 04/12/18 08:45 CLB (Rec: 04/12/18 09:35 CLB [id number]) PT Summary Assessment and Plan Summary Impairments Pain ROM Strength Balance Coordination Sensation Tone Cognition Bed Mobility Transfers Gait Activity Tolerance Progress Towards Goals Safe For Discharge Goals Met Assessment Summary Pt is not safe with mobility and is requiring 2PA with all mobility and will require SNF rehab before returning home. Goals Bed Mobility Goal Minimal Assistance Transfer Goal Minimal Assistance Gait Goal Minimal Assistance Gait Distance 75 Other Goals up/down 1 step using FWW min A Days to Meet Goals 5 Frequency of Treatment Frequency Of Treatment Twice a Day Treatment Plan Physical Therapy Treatment Plan Bed Mobility Training Transfer Training Gait Training Therapeutic Exercise Balance Retraining Post Op Education Discharge Planning Hot or Cold Pack Neuromuscular Re-ed Coordination Retraining Manual Therapy Recommendations To Nursing Amount of Assist Needed 1 Person Assist Discharge Recommendations PT Discharge Recommendations SNF
--- NOTE | 2018-04-09 13:29 | PC.NURSE ---
AM NOTE - alert, some discomfort l throat area, states had hx prior to surg of feeling like something in throat area, speech came in and did their routine post op eval, spoke to pa, pt will be given script for norco and dexamethasone and will dc home. Telfa dsg cdi, wearing soft collar.Some gen edema, states take hctz for this and req this am, discussed low bp and monitor oob to make sure not lightheaded, later am, up with phys therapy standby, gait steady, no dizziness.
--- NOTE | 2018-04-09 13:48 | OT.IP.TRT ---
Current Diagnoses Other spondylosis with radiculopathy, lumbar region (04/07/18) Spinal stenosis, lumbar region with neurogenic claudication (04/07/18) Surgery Performed Operation Date: 04/07/18 07:45 Actual Procedures p L3-4, L4-5 TLIF w/Posterior Instru. - Leticia Park MD Occupational Therapy Treatment Note M2 OT-IP Current Condition Start: 04/08/18 14:33 Freq: Status: Active Protocol: Document 04/08/18 14:25 PJM (Rec: 04/08/18 14:52 PJM [id number]) Occupational Therapy Current Condition Current Condition Evaluation Date 04/08/18 Treatment Diagnosis decreased self care, functional mobility s/p L3-4, L4-5 TLIF Post Operative Precautions Lumbar Precautions Log Roll No Twisting Limit Bending Lifting Restriction of 10 lbs Gait Belt above Incisional Area Other Precautions Falls M3 OT- IP Subjective and Pain Start: 04/08/18 14:33 Freq: Status: Active Protocol: Document 04/09/18 13:36 CCC (Rec: 04/09/18 13:48 CCC [id number]) OT- Subjective Occupational Therapy Visit Type Type Treatment Note Visit Start Time 13:20 Visit Stop Time 13:30 Total Visit Minutes 10 Notes Pt's family present in the room for therapy. OT Pain Assessment Pain When Pain Assessed At Rest Pain Present Pain Present Denied Pain M4 OT- IP ADL's Start: 04/08/18 14:33 Freq: Status: Active Protocol: Document 04/08/18 14:25 PJM (Rec: 04/08/18 14:52 PJM [id number]) OT EHS-Brbj-Pionyfr General Evaluation Self-Feeding Ability Independent OT ADL-Grooming General Evaluation Grooming Ability Standby Assistance Areas Needing Assistance Combing/Brushing Hair Face Washing Comments OT Grooming Comments seated in chair OT ADL-Oral Care General Eval Oral Care Ability Standby Assistance Areas of Assistance Retrieving/Set-Up of Items Devices Oral Care Devices Toothbrush Comments Oral Care Comments seated in chair OT ADL-Dressing General Eval Lower Body Dressing Ability Maximum Assistance Areas Needing Assistance Underpants/Brief Pants/Shorts Socks Shoes Support Stockings Assistive Devices Dressing Assistive Devices Long Handled Shoe Horn Comments OT Dressing Comments Provided education re: use of ice bag assembler and sock aid for lower body dressing within lumbar spine precautions. will bring in pt's compression hose. Pt may need wide sock aid.She has some slip on shoes and already ahs long shoe horn. OT ADL-Toileting General Evaluation Toileting Ability Total Assistance Areas Needing Assistance Empty Catheter or Colostomy Comments OT Toileting Comments toledo still in place. pt plans to borrow tong style toilet paper aid from her sister who is no longer using it OT ADL-Bathing Comments OT Bathing Comments to be assessed as activity tolerance improves; pt plans to use BSC as shower seat in shower stall with 2 sliding doors; plans to install grab bars M5 OT- IP IADL's Start: 04/08/18 14:33 Freq: Status: Active Protocol: Document 04/08/18 14:25 PJM (Rec: 04/08/18 14:52 PJ [id number]) OT-Instrumental Activities of Daily Living Deficits IADL Deficits Identified Deficits Home Safety Awareness Awareness of Need for Assistance at Home Good Awareness Ability to Problem Solve Emergency Able to Problem Solve Situations Medication Management Medication Management No Deficits Identified Money Management Money Management No Deficits Identified Meal Preparation Meal Preparation Caregiver Provides Assist Meal Preparation Comments does most of cooking at home Investment Executive Investment Executive Caregiver Provides Assist Investment Executive Comments and daughter inlaw to assist PRN Driving Driving Caregiver Provides Assist Driving Comments to assist until pt able M6 OT- IP Functional Cognition Start: 04/08/18 14:33 Freq: Status: Active Protocol: Document 04/08/18 14:25 PJM (Rec: 04/08/18 14:52 [facility] [id number]) Cognitive Factors Limiting Selfcare Function Cognitive Ability Level of Alertness Drowsy Patient Orientation Name Age Birthday Month Date Year Day of Week Place Situation Attention Span Ability Capable of Focused Attention Ability to Follow Commands Able to Follow One Step Commands Memory Description No Deficits Noted Safety Awareness Underestimates Need for Assistance Problem Solving Ability Needs Assist to Identify Solutions Cognitive Comments Cognitive Assessment Comments appears WF OT- Vision and Hearing OT- Hearing Assessment OT- Hearing Assessment WF OT- Vision Assessment Visual Acuity Glasses For Reading Vision Assessment Comments WFL, pt denies any recent changes M7 OT- IP Mobility and Balance Start: 04/08/18 14:33 Freq: Status: Active Protocol: Document 04/09/18 13:36 CCC (Rec: 04/09/18 13:48 CCC [id number]) OT- Bed Mobility Assessment Sit to Supine Sit to Supine Assist Maximum Assistance 2 Person Assistance OT-Transfer Assessment Sit to and From Stand Sit to and from Stand Maximum Assistance 2 Person Assistance Transfers Transfer Ability Maximum Assistance 2 Person Assistance Technique Transfer Destination Bed Transfer Technique Stand Step Pivot Devices Transfer Assistive Devices Gait Belt Front Wheeled Walker Comments Mobility Comments Pt needing assist to scoot forwards in the recliner with green pad and MAX A x 2 to stand, vc.tactile cue to move her RLE, assist to move FWW, balance, and at the end not able to get all the way around to the bed to sit and needing assist to guide hips to the bed. OT- Balance Assessment Sitting Balance and Reactions Static Sitting Balance Ability Fair Dynamic Sitting Balance Ability Poor Standing Balance and Reactions Static Standing Balance Ability Poor Dynamic Standing Balance Ability Poor M8 OT- IP Objective Assessments Start: 04/08/18 14:33 Freq: Status: Active Protocol: Document 04/08/18 14:25 PJM (Rec: 04/08/18 14:52 PJM [id number]) OT Gross Range of Motion Upper Extremity Range of Motion Assessment Within Functional Limits OT Strength Upper Extremity Strength Assessment Within Functional Limits Comments Strength Comments Pt feels LUE is weaker than right from her M.S. but presents with equal air technician strength today. OT- Coordination Assessment Comments Coordination Comments BUE WFL OT-Muscle Tone Assessment Muscle Tone WNL Yes OT Sensation Assessment Comments Summary Comments Pt reports intermittent numbness in L hand, especially at night which is relieved by night wrist cockup splint. Pt also has numbness in R hand, but none today M9 OT- IP Assessment and Plan Start: 04/08/18 14:33 Freq: Status: Active Protocol: Document 04/09/18 13:36 [facility] (Rec: 04/09/18 13:48 [facility] [id number]) OT Summary Assessment and Plan Potential Rehabilitation Potential Good Analytic Complexity at Evaluation Moderate Summary OT Impairments Pain Strength Balance Functional Mobility Grooming Dressing Toileting Bathing Toilet Transfers Shower Transfers Progress Towards Goals Slow Progress due to Pain Slow Progress due to Medical Issues Slow Progress due to Activity Tolerance Assessment Summary Pt MOD complexity, needing extensive assist x 2 for all needs at this time, pt will benefti from skilled rehab prior to going home. Pt's main barriers are weakness, pain, step at home, and medical history. Goals Grooming Goal Minimal Assistance Dressing Goal Moderate Assistance Long Handled Shoe Horn Brass Pourer Sock Aid Toileting Goal Moderate Assistance Bathing Goal Moderate Assistance Grab Bars Hand Held Shower Sprayer Long Handled Sponge or Sprague Toilet Transfer Goal Moderate Assistance Shower Transfer Goal Moderate Assistance Patient/Caregiver Education Goal Demonstrate Post-Op Precautions Caregiver Independent Assisting Patient Days to Meet Goals 10 Frequency of Treatment Frequency Of Treatment Once a Day Treatment Plan OT Treatment Plan ADL Training Functional Mobility Patient/Family Education Discharge Planning Discharge Recommendations OT Discharge Recommendations SNF Rehab
--- NOTE | 2018-04-09 15:19 | CM.IDA ---
DCP Assessment Note: Pt is a 77 yo female, resident of [place]. Pt admitted for a scheduled spinal surgery w/Dr Park. Pt's PCP is Dr Perez; Insurance is Medicare/ [employer]. Met w/pt and spouse this morning and afternoon. Both were hopeful pt could go home but knew that pt's recovery process would be complicated by her MS and de-conditioning over the last year. Fist SNF choice is [facility] and they are full. B/u choice is [facility]; gave referral to Irma today and she expects to have a bed Thursday if needed or Thursday if needed. Pt's spouse concerned that pt will be DC too early, reassured him that pt would be assessed again tomorrow, and reminded he and pt of pt's right under Medicare (inpt) to appeal the DC if needed. Both were encouraged to relay any concerns re: DC to PA or Ortho Surgeon and spouse agreed to do this as needed. Following closely. DC to [facility] via w/c likely Thursday or Thursday. VIGNESH Ohara Discharge Planning/Care Management CM Discharge Assessment Start: 04/09/18 15:15 Freq: Status: Active Protocol: Document 04/09/18 15:15 LUCILLE (Rec: 04/09/18 15:19 LUCILLE [id number]) Discharge Planning Assessment Assigned Retail Management Trainee VIGNESH Potter DPOA/Assigned Designee Name Dru Villarreal, spouse Contact Information [phone] Advance Directives? Yes Advance Directives on File Yes History Provided By Patient Significant Other Medical Record Prior Living Arrangements House Household Members spouse Type of transporation used prior to Relies on Others admit Comment Spouse drives Independent with ADL's Yes: Modified Indp Is patient alert and oriented? Yes Comment spouse provides SBA for showers, pt self transfers indp w/ cane or 4ww, spouse assists w/higher ADLs Comment H/O HH w/ prior knee surgery. Patient/Family Preference Half-Way Facility Barriers to Discharge Yes Comment slow to improve, MS, pain, will need SNF stay Discharge Plan [facility]-Way Facility Transportation Arrangement w/c Referrals Initiated Half-Way Additional Comment [facility] full Medicare Choice List Provided Yes SNF/HH Preference 1. [facility] 2. [facility] Has Agency SNF been contacted Yes Whiteboard Updated in Patient Room with Yes name and ext. # of Retail Management Trainee Review Status In Process Please Provide Date Initial DC 04/08/18 Assessment Was Performed
--- NOTE | 2018-04-09 16:00 | PT.IPTN ---
Current Diagnoses Other spondylosis with radiculopathy, lumbar region (04/07/18) Spinal stenosis, lumbar region with neurogenic claudication (04/07/18) Surgery Performed Operation Date: 04/07/18 07:45 Actual Procedures p L3-4, L4-5 TLIF w/Posterior Instru. - Leticia Park MD Physical Therapy Treatment Note M2 PT-IP Current Condition Start: 04/07/18 17:43 Freq: NEEDED Status: Active Protocol: Document 04/07/18 15:20 AB (Rec: 04/07/18 18:00 AB [id number]) Physical Therapy Current Condition Current Condition Evaluation Date 04/07/18 Treatment Diagnosis L3-4, L4-5 fusion, laminectomy ; difficulty in walking Onset Date 04/07/18 Precautions Lumbar Precautions Log Roll No Twisting Limit Bending Lifting Restriction of 10 lbs Gait Belt above Incisional Area Other Precautions Falls M3 PT-IP Subjective Start: 04/07/18 17:43 Freq: NEEDED Status: Active Protocol: Document 04/09/18 16:00 AB (Rec: 04/09/18 16:55 AB [id number]) Subjective Physical Therapy Visit Type Type Treatment Note Visit Start Time 16:00 Visit Stop Time 16:25 Total Visit Minutes 25 Notes called pt's daughter in law Linda per request to be present for pm tx session Number of CIVIL ENGINEERING DESIGN DRAFTSPERSON Visits 0 Physical Therapy Visit Comments Patient Comments pt agreeable to get up and sit up on chair Therapy Pain Assessment Pain When Pain Assessed At Rest Pain Present Pain Present Pain Reported Location Back Intensity 5 Scale Used increases with mobility per pt Pain Management Techniques Apply Cold Timing of Activity with Medications M4 PT-IP Mobility and Gait Start: 04/07/18 17:43 Freq: NEEDED Status: Active Protocol: Document 04/09/18 16:00 AB (Rec: 04/09/18 16:55 AB [id number]) PT-Bed Mobility Assessment Rolling Type of Rolling Log Rolling Level of Assist Maximal Assistance 1 Person Assistance Supine to Sit Supine to Sit Maximum Assistance 1 Person Assistance 2 Person Assistance Scooting Scooting to Edge of Bed Maximum Assistance PT-Transfer Assessment Sit to and From Stand Sit to and from Stand Maximum Assistance 1 Person Assistance Use of Upper Extremities Equipment Transfer Assistive Device Gait Belt Front Wheeled Walker Orthotic/Prosthetic Devices or Brace: No Transfers Transfer Destination Chair Transfer Technique Stand Step Pivot Transfer Ability Level of Assist Maximum Assistance 1 Person Assistance Use of Upper Extremities Comments Mobility Comments Pt with initial decrease sitting balance requiring mod to max A to maintain sitting balance on EOB. cued for leaning forward and activating trunk muscles for control. pt requiring 2 attempts for sit to stand and requiring max A and max cues. pt with (+) bilateral knee buckling but pt was able to control with cues provided to straigthen knees, for upright posture and use of UE for support Gait Assessment Comments Gait Comments did not complete ambulation due to B knees buckling during transfer and pt stated that she feels really weak due to her MS PT-Balance Assessment Sitting Balance and Reactions Static Sitting Balance Ability Fair Dynamic Sitting Balance Ability Poor Standing Balance and Reactions Static Standing Balance Ability Poor Dynamic Standing Balance Ability Poor Device Used FWW M5 PT-IP Objective Assessments Start: 04/07/18 17:43 Freq: NEEDED Status: Active Protocol: Document 04/07/18 15:20 AB (Rec: 04/07/18 18:00 AB [id number]) Orientation Orientation/Cognition Level of Alertness Alert Orientation Name Age Birthday Month Date Year Day of Week Place Situation Safety Awareness Decreased Safety Awareness Gross Range of Motion Lower Extremity ROM Assessment Within Functional Limits Strength Lower Extremity Strength Assessment Bilaterally Impaired Comments Strength Comments LLE weaker than RLE L knee extension: 3+/5 R knee extension: 4-/5 Sensation Assessment Sensation Gross Sensation Right LE Impaired Left LE Impaired Sensation Description Numbness Comments Sensation Comments decrease LE sensation on B feet especially on lateral side of feet close of the 5th toe M6 PT-IP Treatment Start: 04/07/18 17:43 Freq: NEEDED Status: Active Protocol: Document 04/09/18 16:00 AB (Rec: 04/09/18 16:55 AB [id number]) Physical Therapy Treatment Exercises Exercises Quad Sets Seated Knee Flexion/Extension Education Education Provided Precautions Weight Bearing Status Safety M7 PT-IP Assessment and Plan Start: 04/07/18 17:43 Freq: NEEDED Status: Active Protocol: Document 04/09/18 16:00 AB (Rec: 04/09/18 16:55 AB [id number]) PT Summary Assessment and Plan Potential Rehabilitation Potential Fair Summary Impairments Pain ROM Strength Balance Coordination Sensation Tone Cognition Bed Mobility Transfers Gait Activity Tolerance Progress Towards Goals Slow Progress due to Medical Issues Assessment Summary pt continue to require max A with mobility and with (+) bilateral knee buckling during transfer requiring assist for balance. pt will require SNF rehab to improve strength and mobility. Goals Bed Mobility Goal Minimal Assistance Transfer Goal Minimal Assistance Gait Goal Minimal Assistance Gait Distance 75 Other Goals up/down 1 step using FWW min A Days to Meet Goals 5 Frequency of Treatment Frequency Of Treatment Twice a Day Treatment Plan Physical Therapy Treatment Plan Bed Mobility Training Transfer Training Gait Training Therapeutic Exercise Balance Retraining Post Op Education Discharge Planning Hot or Cold Pack Neuromuscular Re-ed Coordination Retraining Manual Therapy Other Recommendations and Next Treatment ambulation, caregiver training Focus , stair training Recommendations To Nursing Amount of Assist Needed 2 Person Assist Discharge Recommendations PT Discharge Recommendations SNF Rehab
[2018-04-09] MEDS: SENNOSIDES 8.6 MG TABLET 17.2 MG PO (21:52)
[2018-04-09] MEDS: SIMVASTATIN 40 MG TABLET PO (21:52)
[2018-04-09] MEDS: NITROFURANTOIN 50 MG CAPSULE PO (21:52)
[2018-04-09] MEDS: hydrOXYzine pamoate 25 MG CAPSULE PO (23:44)
[2018-04-10] VITALS (8 sets, daily range): BP systolic 138–175; BP diastolic 56–73; PULSE 60–96; RESP 16–18; TEMP 35.7–37.1; O2SAT 92–99
[2018-04-10] MEDS: OXYCODONE IR 5 MG TABLET 10 MG PO (03:46)
[2018-04-10] MEDS: ACETAMINOPHEN 325 MG TABLET 650 MG PO ×3 (03:48→20:05)
[2018-04-10] MEDS: PANTOPRAZOLE 20 MG TABLET PO (06:03)
[2018-04-10] MEDS: TELMISARTAN 40 MG TABLET 80 MG PO (08:07)
[2018-04-10] MEDS: MULTIVITAMIN 1 TABLET 1 TAB PO (08:07)
[2018-04-10] MEDS: DOCUSATE 100 MG CAPSULE PO ×2 (08:07→20:04)
[2018-04-10] MEDS: FUROSEMIDE 40 MG TABLET PO (08:07)
[2018-04-10] MEDS: METOPROLOL ER 50 MG TABLET PO ×2 (08:07→20:04)
[2018-04-10] MEDS: hydroCHLOROthiazide 25 MG TABLET PO (08:07)
[2018-04-10] MEDS: POTASSIUM CHLORIDE 20 MEQ TAB PO (08:08)
[2018-04-10] MEDS: hydrOXYzine pamoate 25 MG CAPSULE PO (08:12)
--- NOTE | 2018-04-10 09:13 | P.PN_ITS ---
Subjective Date Patient Seen: 04/10/18 Time Patient Seen: 09:06 Interval history: Patient is postop day 3. Status post L3-4, L4-[address] Park. Patient complaining of left leg spasms and weakness. History of leg spasms which she takes tizanidine for. She has been receiving Vistaril which really has not been helping her leg spasms. Oxycodone does help her pain but makes her extremely drowsy. She also has numbness and tingling in left leg. Slow to mobilize. History of multiple sclerosis so mobility is an issue. Logan still in. Does not want to fully out because of her mobility issues. She self catheterizes at home. Plan is for to be eventually discharged to [facility] when stable. Exam Vital Signs (past 8 hours): - 04/10/18 05:01 04/10/18 07:10 Temperature 98.3 F 97.9 F Pulse Rate 60 63 Respiratory Rate 18 18 Blood Pressure 138/61 175/65 H Pulse Oximetry 96 99 Fraction of Inspired Oxygen 21 Oxygen Delivery Method Nasal Cannula Oxygen Flow Rate 1 Narrative Exam Narrative: Patient in bed. Alert orient x3. Surgical dressing clean dry and intact. Weakness some left leg but can wiggle toes. Able to lift her right leg. Bilateral calves soft and nontender. Numbness and tingling in left leg and foot. Logan catheter in. Objective Labs Result Diagrams: 04/08/18 06:55 Assessment & Plan Post-op Postoperative Procedures Operation Date: 04/07/18 07:45 Actual Procedures Side Surgeon p L3-4, L4-5 TLIF w/Posterior Instru. Leticia Park MD Postop day 3. Will DC Vistaril and use tizanidine for muscle spasms. One dose of dexamethasone to help with pain. Decrease dose of oxycodone from 10mg to 5mg to prevent over-sedation. Continue Logan catheter. Patient to continue mobilizing with physical therapy. Anticipate discharge [facility] on Thursday.
[2018-04-10] MEDS: DEXAMETHASONE 4 MG TABLET 10 MG PO (10:07)
--- NOTE | 2018-04-10 10:22 | PT.IPTN ---
Current Diagnoses Other spondylosis with radiculopathy, lumbar region (04/07/18) Spinal stenosis, lumbar region with neurogenic claudication (04/07/18) Surgery Performed Operation Date: 04/07/18 07:45 Actual Procedures p L3-4, L4-5 TLIF w/Posterior Instru. - Leticia Park MD Physical Therapy Treatment Note M2 PT-IP Current Condition Start: 04/07/18 17:43 Freq: NEEDED Status: Active Protocol: Document 04/07/18 15:20 AB (Rec: 04/07/18 18:00 AB [id number]) Physical Therapy Current Condition Current Condition Evaluation Date 04/07/18 Treatment Diagnosis L3-4, L4-5 fusion, laminectomy ; difficulty in walking Onset Date 04/07/18 Precautions Lumbar Precautions Log Roll No Twisting Limit Bending Lifting Restriction of 10 lbs Gait Belt above Incisional Area Other Precautions Falls M3 PT-IP Subjective Start: 04/07/18 17:43 Freq: NEEDED Status: Active Protocol: Document 04/10/18 10:22 AB (Rec: 04/10/18 12:09 AB [email or web address]) Subjective Physical Therapy Visit Type Type Treatment Note Visit Start Time 10:22 Visit Stop Time 11:07 Total Visit Minutes 45 Number of DRUMS TEACHER Visits 0 Physical Therapy Visit Comments Patient Comments pt agreeable to do PT Therapy Pain Assessment Pain When Pain Assessed At Rest Pain Present Pain Present Pain Reported Location Back Intensity 8 Scale Used Numeric (1 - 10) Description Spasm Pain Behaviors Facial Grimacing Guarding Wincing Pain Management Techniques Apply Cold Re-positioning Timing of Activity with Medications M4 PT-IP Mobility and Gait Start: 04/07/18 17:43 Freq: NEEDED Status: Active Protocol: Document 04/10/18 10:22 AB (Rec: 04/10/18 12:09 AB [email or web address]) PT-Bed Mobility Assessment Rolling Type of Rolling Log Rolling Level of Assist Maximal Assistance 1 Person Assistance Supine to Sit Supine to Sit Maximum Assistance 1 Person Assistance 2 Person Assistance Scooting Scooting to Edge of Bed Maximum Assistance PT-Transfer Assessment Sit to and From Stand Sit to and from Stand Moderate Assistance Maximum Assistance 1 Person Assistance 2 Person Assistance Use of Upper Extremities Equipment Transfer Assistive Device Gait Belt Front Wheeled Walker Orthotic/Prosthetic Devices or Brace: No Transfers Transfer Destination Bedside Commode Transfer Technique Stand Step Pivot Transfer Ability Level of Assist Moderate Assistance Maximum Assistance 1 Person Assistance 2 Person Assistance Use of Upper Extremities Comments Mobility Comments pt with increase L knee flexion during standing and transfers and requires max A for stabilization of LLE. cues provided to activate bilateral quads. pt completed transfer using FWW bed to bedside commode requiring mod A x 2 to max A x 2 and max cues. pt completed sit to stand from bedside commode mod A x 2 to max A x 2 and max cues and was ablet o maintain standing mod A x 2 while NAC assisted with hygiene care. Gait Assessment Gait Gait Assistance Required: Moderate Assistance 2 Person Assist Distance (Feet) 10 Able to Maintain Weight Bearing Status Yes During Gait Assistive Devices Assistive Device Gait Belt Front Wheeled Walker Orthotic/Prosthetic Devices or Brace: No Gait Deviations General Gait Pattern Decreased Stride Length Decreased Feet Clearance Factors Limiting Gait Function Factors Limiting Gait Function Decreased Activity Tolerance Decreased Sensation Decreased Strength Difficulty Following Directions Limited Range of Motion Pain Poor Balance Poor Safety Awareness M5 PT-IP Objective Assessments Start: 04/07/18 17:43 Freq: NEEDED Status: Active Protocol: Document 04/07/18 15:20 AB (Rec: 04/07/18 18:00 AB [id number]) Orientation Orientation/Cognition Level of Alertness Alert Orientation Name Age Birthday Month Date Year Day of Week Place Situation Safety Awareness Decreased Safety Awareness Gross Range of Motion Lower Extremity ROM Assessment Within Functional Limits Strength Lower Extremity Strength Assessment Bilaterally Impaired Comments Strength Comments LLE weaker than RLE L knee extension: 3+/5 R knee extension: 4-/5 Sensation Assessment Sensation Gross Sensation Right LE Impaired Left LE Impaired Sensation Description Numbness Comments Sensation Comments decrease LE sensation on B feet especially on lateral side of feet close of the 5th toe M6 PT-IP Treatment Start: 04/07/18 17:43 Freq: NEEDED Status: Active Protocol: Document 04/10/18 10:22 AB (Rec: 04/10/18 12:09 AB [email or web address]) Physical Therapy Treatment Education Education Provided Precautions Safety M7 PT-IP Assessment and Plan Start: 04/07/18 17:43 Freq: NEEDED Status: Active Protocol: Document 04/10/18 10:22 AB (Rec: 04/10/18 12:09 AB [email or web address]) PT Summary Assessment and Plan Potential Rehabilitation Potential Fair Summary Impairments Pain ROM Strength Balance Coordination Sensation Tone Cognition Bed Mobility Transfers Gait Activity Tolerance Progress Towards Goals Slow Progress due to Pain Slow Progress due to Medical Issues Assessment Summary pt requires 1-2 person mod to max A with mobility with c/o increase LBP and also has MS contributing to weakness and decrease mobility. pt will need SNF rehab to improve strength and function. Goals Bed Mobility Goal Minimal Assistance Transfer Goal Minimal Assistance Gait Goal Minimal Assistance Gait Distance 75 Other Goals up/down 1 step using FWW min A Days to Meet Goals 5 Frequency of Treatment Frequency Of Treatment Twice a Day Treatment Plan Physical Therapy Treatment Plan Bed Mobility Training Transfer Training Gait Training Therapeutic Exercise Balance Retraining Post Op Education Discharge Planning Hot or Cold Pack Neuromuscular Re-ed Coordination Retraining Manual Therapy Other Recommendations and Next Treatment ambulation, caregiver training Focus , stair training Recommendations To Nursing Amount of Assist Needed 2 Person Assist Discharge Recommendations PT Discharge Recommendations SNF Rehab
--- NOTE | 2018-04-10 11:04 | PC.NURSE ---
Addendum entered by Taylor Vargas R.N. 04/10/18 13:59: ms/pain/gi - phys therapy in, pt assisted x 2 person up bsc, flatus only, also had dish prunes for lunch, declines any addl laxative at this time, ret to bed, discussed pain mgt, states the l leg spasm is ok while lying bed and declines any narcotic or muscle relaxant at this time Original Note: AM NOTE - awakened for breakfast, wincing with spasm discomfort lle, discussed pain mgt, medications, pt becomes very drowsy with the oxycodone, tried 25mg vistaril and 650mg po tylenol this am, later Chaya PEREYRA in and reviewed medications, will try her usual muscle relaxant that pt takes hs later this afternoon to see if improvement with the leg spasm, will continue with [place], pt usually has taken this med at hs as it will make her drowsy, the vistaril will dc, also given x1 dose dexamethasone this am, 1L 97%, hr 60, removed 02, added prune juice this am, declines mom or other laxative, later up to bsc w/flatus only, PT assisted to chair.
--- NOTE | 2018-04-10 13:01 | OT.IP.TRT ---
Current Diagnoses Other spondylosis with radiculopathy, lumbar region (04/07/18) Spinal stenosis, lumbar region with neurogenic claudication (04/07/18) Surgery Performed Operation Date: 04/07/18 07:45 Actual Procedures p L3-4, L4-5 TLIF w/Posterior Instru. - Leticia Park MD Occupational Therapy Treatment Note M2 OT-IP Current Condition Start: 04/08/18 14:33 Freq: Status: Active Protocol: Document 04/08/18 14:25 PJ (Rec: 04/08/18 14:52 PJ [id number]) Occupational Therapy Current Condition Current Condition Evaluation Date 04/08/18 Treatment Diagnosis decreased self care, functional mobility s/p L3-4, L4-5 TLIF Post Operative Precautions Lumbar Precautions Log Roll No Twisting Limit Bending Lifting Restriction of 10 lbs Gait Belt above Incisional Area Other Precautions Falls M3 OT- IP Subjective and Pain Start: 04/08/18 14:33 Freq: Status: Active Protocol: Document 04/10/18 12:43 [facility] (Rec: 04/10/18 13:01 [facility] [id number]) OT- Subjective Occupational Therapy Visit Type Type Treatment Note Visit Start Time 10:22 Visit Stop Time 11:07 Total Visit Minutes 45 Notes Pt's family initially in the room and then left as pt needing to use the bsc. OT Pain Assessment Pain When Pain Assessed At Rest Pain Present Pain Present Denied Pain M4 OT- IP ADL's Start: 04/08/18 14:33 Freq: Status: Active Protocol: Document 04/10/18 12:43 [facility] (Rec: 04/10/18 13:01 [facility] [id number]) OT ADL-Grooming General Evaluation Grooming Ability Standby Assistance Areas Needing Assistance Face Washing Comments OT Grooming Comments seated in chair OT ADL-Toileting General Evaluation Toileting Ability Total Assistance Comments OT Toileting Comments Assist for all hygiene. M5 OT- IP IADL's Start: 04/08/18 14:33 Freq: Status: Active Protocol: Document 04/08/18 14:25 PJM (Rec: 04/08/18 14:52 PJ [id number]) OT-Instrumental Activities of Daily Living Deficits IADL Deficits Identified Deficits Home Safety Awareness Awareness of Need for Assistance at Home Good Awareness Ability to Problem Solve Emergency Able to Problem Solve Situations Medication Management Medication Management No Deficits Identified Money Management Money Management No Deficits Identified Meal Preparation Meal Preparation Caregiver Provides Assist Meal Preparation Comments does most of cooking at home Spectral Scientist Spectral Scientist Caregiver Provides Assist Spectral Scientist Comments and daughter inlaw to assist PRN Driving Driving Caregiver Provides Assist Driving Comments to assist until pt able M6 OT- IP Functional Cognition Start: 04/08/18 14:33 Freq: Status: Active Protocol: Document 04/10/18 12:43 [facility] (Rec: 04/10/18 13:01 [facility] [id number]) Cognitive Factors Limiting Selfcare Function Cognitive Ability Level of Alertness Alert Patient Orientation Name Age Birthday Month Date Year Day of Week Place Situation Attention Span Ability Capable of Focused Attention Capable of Sustained Attention Ability to Follow Commands Able to Follow Multi-Step Commands M7 OT- IP Mobility and Balance Start: 04/08/18 14:33 Freq: Status: Active Protocol: Document 04/10/18 12:43 [facility] (Rec: 04/10/18 13:01 [facility] [id number]) OT- Bed Mobility Assessment Sit to Supine Sit to Supine Assist Maximum Assistance 2 Person Assistance OT-Transfer Assessment Sit to and From Stand Sit to and from Stand Moderate Assistance Maximum Assistance 2 Person Assistance Transfers Transfer Ability Moderate Assistance Maximum Assistance 2 Person Assistance Technique Transfer Destination Bedside Commode Chair Transfer Technique Stand Step Pivot Devices Transfer Assistive Devices Gait Belt Front Wheeled Walker Comments Mobility Comments COtxt with PT, MOD x 2 to MAX A x 2 for all bed mobility and transfers, pt still shakey on her feet and needing assist for balance, and vc for safety. OT- Balance Assessment Sitting Balance and Reactions Static Sitting Balance Ability Good Dynamic Sitting Balance Ability Fair Standing Balance and Reactions Static Standing Balance Ability Poor Dynamic Standing Balance Ability Poor M8 OT- IP Objective Assessments Start: 04/08/18 14:33 Freq: Status: Active Protocol: Document 04/08/18 14:25 PJM (Rec: 04/08/18 14:52 PJM [id number]) OT Gross Range of Motion Upper Extremity Range of Motion Assessment Within Functional Limits OT Strength Upper Extremity Strength Assessment Within Functional Limits Comments Strength Comments Pt feels LUE is weaker than right from her M.S. but presents with equal outbound telemarketer strength today. OT- Coordination Assessment Comments Coordination Comments BUE WFL OT-Muscle Tone Assessment Muscle Tone WNL Yes OT Sensation Assessment Comments Summary Comments Pt reports intermittent numbness in L hand, especially at night which is relieved by night wrist cockup splint. Pt also has numbness in R hand, but none today M9 OT- IP Assessment and Plan Start: 04/08/18 14:33 Freq: Status: Active Protocol: Document 04/10/18 12:43 [facility] (Rec: 04/10/18 13:01 [facility] [id number]) OT Summary Assessment and Plan Goals Days to Meet Goals 7 Frequency of Treatment Frequency Of Treatment Once a Day Treatment Plan OT Treatment Plan ADL Training Functional Mobility Patient/Family Education Discharge Planning Discharge Recommendations OT Discharge Recommendations SNF Rehab
--- NOTE | 2018-04-10 13:41 | PT.IPTN ---
Current Diagnoses Other spondylosis with radiculopathy, lumbar region (04/07/18) Spinal stenosis, lumbar region with neurogenic claudication (04/07/18) Surgery Performed Operation Date: 04/07/18 07:45 Actual Procedures p L3-4, L4-5 TLIF w/Posterior Instru. - Leticia Park MD Physical Therapy Treatment Note M2 PT-IP Current Condition Start: 04/07/18 17:43 Freq: NEEDED Status: Active Protocol: Document 04/10/18 13:41 RCC (Rec: 04/10/18 14:28 [facility] [id number]) Physical Therapy Current Condition Current Condition Evaluation Date 04/07/18 Treatment Diagnosis L3-4, L4-5 fusion, laminectomy ; difficulty in walking Onset Date 04/07/18 Precautions Lumbar Precautions Log Roll No Twisting Limit Bending Lifting Restriction of 10 lbs Gait Belt above Incisional Area Other Precautions Falls M3 PT-IP Subjective Start: 04/07/18 17:43 Freq: NEEDED Status: Active Protocol: Document 04/10/18 13:41 RCC (Rec: 04/10/18 14:28 [facility] [id number]) Subjective Physical Therapy Visit Type Type Treatment Note Visit Start Time 12:50 Visit Stop Time 13:41 Total Visit Minutes 21 Notes 21:50-1300 transfer to [facility] [place], pt attempted BM, then back to room [id number] (total PT time 21 min). Number of TRAINING PROGRAM ASSISTANT Visits 0 Physical Therapy Visit Comments Patient Comments Pt wants to attempt a BM, states she feels fatigued now after sitting upright. M4 PT-IP Mobility and Gait Start: 04/07/18 17:43 Freq: NEEDED Status: Active Protocol: Document 04/10/18 13:41 RCC (Rec: 04/10/18 14:28 [facility] [id number]) PT-Bed Mobility Assessment Sit to Supine Sit to Supine Moderate Assistance 2 Person Assistance Scooting Scooting to Edge of Bed Contact Guard Assistance Scooting Up and Down in Bed Maximum Assistance PT-Transfer Assessment Sit to and From Stand Sit to and from Stand Moderate Assistance 2 Person Assistance Use of Upper Extremities Equipment Transfer Assistive Device Gait Belt Front Wheeled Walker Transfers Transfer Destination Bed Bedside Commode Transfer Technique Stand Step Pivot Transfer Ability Level of Assist Contact Guard Assistance Comments Mobility Comments no buckling, but decreased B foot clearance with steps Gait Assessment Comments Gait Comments pt too fatigued to ambulate after transfer to [facility] [place] and transfer to bed. M5 PT-IP Objective Assessments Start: 04/07/18 17:43 Freq: NEEDED Status: Active Protocol: Document 04/07/18 15:20 AB (Rec: 04/07/18 18:00 AB [id number]) Orientation Orientation/Cognition Level of Alertness Alert Orientation Name Age Birthday Month Date Year Day of Week Place Situation Safety Awareness Decreased Safety Awareness Gross Range of Motion Lower Extremity ROM Assessment Within Functional Limits Strength Lower Extremity Strength Assessment Bilaterally Impaired Comments Strength Comments LLE weaker than RLE L knee extension: 3+/5 R knee extension: 4-/5 Sensation Assessment Sensation Gross Sensation Right LE Impaired Left LE Impaired Sensation Description Numbness Comments Sensation Comments decrease LE sensation on B feet especially on lateral side of feet close of the 5th toe M6 PT-IP Treatment Start: 04/07/18 17:43 Freq: NEEDED Status: Active Protocol: Document 04/10/18 13:41 RCC (Rec: 04/10/18 14:28 [facility] [id number]) Physical Therapy Treatment Education Education Provided Precautions Safety M7 PT-IP Assessment and Plan Start: 04/07/18 17:43 Freq: NEEDED Status: Active Protocol: Document 04/10/18 13:41 RCC (Rec: 04/10/18 14:28 [facility] [id number]) PT Summary Assessment and Plan Summary Assessment Summary Pt requires assistance with sit<->stand of 2 persons at this time, as well as with bed mobility. Pt too fatigued to ambulate in room this afternoon. She requires cuing for safe log roll. Pt is not safe to return home at this point, and recommend SNF rehabilitation to progress functional indep. and safety. Goals Bed Mobility Goal Minimal Assistance Transfer Goal Minimal Assistance Gait Goal Minimal Assistance Gait Distance 75 Other Goals up/down 1 step using FWW min A Days to Meet Goals 5 Frequency of Treatment Frequency Of Treatment Twice a Day Treatment Plan Other Recommendations and Next Treatment gait, bed mobility; stairs and Focus CG training Recommendations To Nursing Amount of Assist Needed 2 Person Assist Discharge Recommendations PT Discharge Recommendations SNF Rehab
--- NOTE | 2018-04-10 15:38 | CM.DPC ---
DCP Cont: Met w/pt and spouse today; reviewed DCP. They had discussed plan w/RODDY Larkin today and all have agreed for a DC to [facility] Thursday. Asked pt/spouse if tomorrow might be an option if pt is medically stable? Pt/spouse still expected Thursday would work best. DC turnaround planner will follow closely for coordination. Alerted Jolene galo/[facility] re: above. VIGNESH Ohara
--- NOTE | 2018-04-10 18:48 | PC.NURSE ---
Addendum entered by Dee Dee Pacheco R.N. 04/10/18 21:24: Pt had evening meds and then back to bed. scd foot daisy replaced. Pt compliant. pt did well with ambulation, but had some difficulty with getting out of chair. pt steady on feet. still having frequent high intensity leg spasms. Original Note: Assumed care of pt form outgoing shift at 1500 this day. Pt awake and alert. daughter at bedside. to be here later. Pt compliant. pt side lying to right. up oob for bm. [place] patent. pt compliant. up to chair after. pt ambulating well. doesn't want any pain medication and states pain / but is ok. her leg spasms and that's what really causing more pain. pt talks herself through getting up and using walker and sitting for commode. Pt pleasant. denies further needs at this time. will continue to monitor.
[2018-04-10] MEDS: SENNOSIDES 8.6 MG TABLET 17.2 MG PO (20:04)
[2018-04-10] MEDS: SIMVASTATIN 40 MG TABLET PO (20:04)
[2018-04-10] MEDS: TIZANIDINE 4 MG TABLET PO (20:04)
[2018-04-10] MEDS: NITROFURANTOIN 50 MG CAPSULE PO (20:04)
[2018-04-11] VITALS (8 sets, daily range): BP systolic 108–168; BP diastolic 55–97; PULSE 51–70; RESP 16–20; TEMP 36.2–36.6; O2SAT 95–99
[2018-04-11] MEDS: ACETAMINOPHEN 325 MG TABLET 650 MG PO ×4 (02:45→21:00)
[2018-04-11] MEDS: TIZANIDINE 4 MG TABLET PO ×4 (02:45→21:00)
[2018-04-11] MEDS: PANTOPRAZOLE 20 MG TABLET PO (06:30)
--- NOTE | 2018-04-11 07:36 | PM.PNPO.1 ---
Subjective Date Patient Seen: 04/11/18 Time Patient Seen: 07:36 Interval history: Patient is now postop day 4. status post an L3-L4, L4-L5 TLIF. Patient doing much better this morning. She has stopped taking the oxycodone cause it was making her too drowsy. Patient is taking Vistaril for the muscle spasms and Tylenol and that seems to be keeping her comfortable. Was able to get out of bed yesterday and take a few steps. But really has not ambulated much at all since surgery. Right now the plan is to discharge her to [facility] on Thursday. Exam Vital Signs (past 8 hours): - 04/11/18 00:10 04/11/18 06:30 Temperature 97.6 F 97.9 F Pulse Rate 65 61 Respiratory Rate 18 16 Blood Pressure 142/97 H 152/59 H Pulse Oximetry 96 97 Fraction of Inspired Oxygen 21 Oxygen Delivery Method Room Air Oxygen Flow Rate 0 Narrative Exam Narrative: On physical exam, patient resting comfortably in bed. Pain is well controlled. Exhibiting some muscle spasms with movement. Positive dorsiflexion and plantar flexion of the toes and ankles. Slight weakness on the left toes and ankle when compared to the right. Bilateral calves nontender to palpation. Objective Labs Result Diagrams: 04/08/18 06:55 Assessment & Plan Post-op Postoperative Procedures Operation Date: 04/07/18 07:45 Actual Procedures Side Surgeon p L3-4, L4-5 TLIF w/Posterior Instru. Leticia Park MD Postoperative day: 4 Postoperative status: doing well Postoperative status narrative: Patient doing better on postoperative day 4. plan will be to continue with physical therapy and most likely discharge to longterm facility on Thursday. Postoperative plan: routine post-op care Time Spent With Patient less than 15 minutes
[2018-04-11] MEDS: MULTIVITAMIN 1 TABLET 1 TAB PO (08:57)
[2018-04-11] MEDS: FUROSEMIDE 40 MG TABLET PO (08:57)
[2018-04-11] MEDS: POTASSIUM CHLORIDE 20 MEQ TAB PO (08:57)
[2018-04-11] MEDS: hydroCHLOROthiazide 25 MG TABLET PO (08:57)
[2018-04-11] MEDS: METOPROLOL ER 50 MG TABLET PO ×2 (08:57→21:00)
[2018-04-11] MEDS: DOCUSATE 100 MG CAPSULE PO ×2 (08:57→20:59)
[2018-04-11] MEDS: TELMISARTAN 40 MG TABLET 80 MG PO (08:58)
--- NOTE | 2018-04-11 09:43 | PC.NURSE ---
AM NOTE - alert, states slept well last night, winces with l leg spasms at times, tylenol and xanaflex providing adequate relief w/discomfort 4-6 at rest, phys therapy in after medicated this am, able log roll w/assist and then using fww, steps to chair.
--- NOTE | 2018-04-11 10:40 | PT.IPTN ---
Current Diagnoses Other spondylosis with radiculopathy, lumbar region (04/07/18) Spinal stenosis, lumbar region with neurogenic claudication (04/07/18) Surgery Performed Operation Date: 04/07/18 07:45 Actual Procedures p L3-4, L4-5 TLIF w/Posterior Instru. - Leticia Park MD Physical Therapy Treatment Note M2 PT-IP Current Condition Start: 04/07/18 17:43 Freq: NEEDED Status: Active Protocol: Document 04/10/18 13:41 RCC (Rec: 04/10/18 14:28 RCC [id number]) Physical Therapy Current Condition Current Condition Evaluation Date 04/07/18 Treatment Diagnosis L3-4, L4-5 fusion, laminectomy ; difficulty in walking Onset Date 04/07/18 Precautions Lumbar Precautions Log Roll No Twisting Limit Bending Lifting Restriction of 10 lbs Gait Belt above Incisional Area Other Precautions Falls M3 PT-IP Subjective Start: 04/07/18 17:43 Freq: NEEDED Status: Active Protocol: Document 04/11/18 09:37 CLB (Rec: 04/11/18 10:40 [facility] [id number]) Subjective Physical Therapy Visit Type Type Treatment Note Visit Start Time 09:37 Visit Stop Time 10:00 Total Visit Minutes 23 Number of EMERGENCY DISPATCHER Visits 1 Physical Therapy Visit Comments Patient Comments Pt agreeable to ambulate and transfer to chair. Therapy Pain Assessment Pain When Pain Assessed During Mobility Pain Present Pain Present Pain Reported Location Back Intensity 5 Scale Used Numeric (1 - 10) Description Spasm Pain Management Techniques Timing of Activity with Medications M4 PT-IP Mobility and Gait Start: 04/07/18 17:43 Freq: NEEDED Status: Active Protocol: Document 04/11/18 09:37 CLB (Rec: 04/11/18 10:40 [facility]B [id number]) PT-Bed Mobility Assessment Rolling Type of Rolling Log Rolling Level of Assist Contact Guard Assistance Supine to Sit Supine to Sit Minimal Assistance 1 Person Assistance Bedrails Scooting Scooting to Edge of Bed Contact Guard Assistance PT-Transfer Assessment Sit to and From Stand Sit to and from Stand Contact Guard Assistance Use of Upper Extremities Equipment Transfer Assistive Device Gait Belt Front Wheeled Walker Orthotic/Prosthetic Devices or Brace: No Transfers Transfer Destination Chair Transfer Technique Stand Step Pivot Transfer Ability Level of Assist Contact Guard Assistance Comments Mobility Comments Pt had no buckling and continues to have decreased B foot clearance. Pt had cramping of L foot. Gait Assessment Gait Gait Assistance Required: Contact Guard Assist 1 Person Assist Distance (Feet) 20 Able to Maintain Weight Bearing Status Yes During Gait Assistive Devices Assistive Device Gait Belt Front Wheeled Walker Orthotic/Prosthetic Devices or Brace: No Gait Deviations General Gait Pattern Decreased Stride Length Decreased Feet Clearance Factors Limiting Gait Function Factors Limiting Gait Function Decreased Activity Tolerance Decreased Sensation Decreased Strength Difficulty Following Directions Limited Range of Motion Pain Poor Balance Poor Safety Awareness Comments Gait Comments Pt able to increased gait distance to ~20ft. Pt had no knee buckling but states she continues to feel weakness on LLE over RLE. Stair Climbing Assessment Comments Stair Climbing Comments not able to assess at this time due to LE weakness. M5 PT-IP Objective Assessments Start: 04/07/18 17:43 Freq: NEEDED Status: Active Protocol: Document 04/07/18 15:20 AB (Rec: 04/07/18 18:00 AB [id number]) Orientation Orientation/Cognition Level of Alertness Alert Orientation Name Age Birthday Month Date Year Day of Week Place Situation Safety Awareness Decreased Safety Awareness Gross Range of Motion Lower Extremity ROM Assessment Within Functional Limits Strength Lower Extremity Strength Assessment Bilaterally Impaired Comments Strength Comments LLE weaker than RLE L knee extension: 3+/5 R knee extension: 4-/5 Sensation Assessment Sensation Gross Sensation Right LE Impaired Left LE Impaired Sensation Description Numbness Comments Sensation Comments decrease LE sensation on B feet especially on lateral side of feet close of the 5th toe M6 PT-IP Treatment Start: 04/07/18 17:43 Freq: NEEDED Status: Active Protocol: Document 04/10/18 13:41 RCC (Rec: 04/10/18 14:28 RCC [id number]) Physical Therapy Treatment Education Education Provided Precautions Safety M7 PT-IP Assessment and Plan Start: 04/07/18 17:43 Freq: NEEDED Status: Active Protocol: Document 04/11/18 09:37 CLB (Rec: 04/11/18 10:40 CLB [id number]) PT Summary Assessment and Plan Potential Rehabilitation Potential Fair Summary Impairments Pain ROM Strength Balance Coordination Sensation Tone Cognition Bed Mobility Transfers Gait Activity Tolerance Progress Towards Goals Slow Progress due to Pain Slow Progress due to Medical Issues Assessment Summary Pt continues to require assist with bed mobility but only required Min A x1 today. Pt able to increase ambulation to 20ft with decreased pain. Pt requires cues for hand placement for safety with transfers. Pt will benefit from SNF rehab to progress functional indep. and safety. Goals Bed Mobility Goal Minimal Assistance Transfer Goal Minimal Assistance Gait Goal Minimal Assistance Gait Distance 75 Other Goals up/down 1 step using FWW min A Days to Meet Goals 5 Frequency of Treatment Frequency Of Treatment Twice a Day Treatment Plan Physical Therapy Treatment Plan Bed Mobility Training Transfer Training Gait Training Therapeutic Exercise Balance Retraining Post Op Education Discharge Planning Hot or Cold Pack Neuromuscular Re-ed Coordination Retraining Manual Therapy Other Recommendations and Next Treatment gait, bed mobility; stairs and Focus CG training Recommendations To Nursing Amount of Assist Needed 2 Person Assist Discharge Recommendations PT Discharge Recommendations SNF Rehab
--- NOTE | 2018-04-11 13:51 | PT.IPTN ---
Current Diagnoses Other spondylosis with radiculopathy, lumbar region (04/07/18) Spinal stenosis, lumbar region with neurogenic claudication (04/07/18) Surgery Performed Operation Date: 04/07/18 07:45 Actual Procedures p L3-4, L4-5 TLIF w/Posterior Instru. - Leticia Park MD Physical Therapy Treatment Note M2 PT-IP Current Condition Start: 04/07/18 17:43 Freq: NEEDED Status: Active Protocol: Document 04/10/18 13:41 RCC (Rec: 04/10/18 14:28 RCC [id number]) Physical Therapy Current Condition Current Condition Evaluation Date 04/07/18 Treatment Diagnosis L3-4, L4-5 fusion, laminectomy ; difficulty in walking Onset Date 04/07/18 Precautions Lumbar Precautions Log Roll No Twisting Limit Bending Lifting Restriction of 10 lbs Gait Belt above Incisional Area Other Precautions Falls M3 PT-IP Subjective Start: 04/07/18 17:43 Freq: NEEDED Status: Active Protocol: Document 04/11/18 12:25 CLB (Rec: 04/11/18 13:51 CLB [id number]) Subjective Physical Therapy Visit Type Type Treatment Note Visit Start Time 12:25 Visit Stop Time 12:48 Total Visit Minutes 23 Number of RIG BUILDER Visits 2 Physical Therapy Visit Comments Patient Comments Pt needing to use BR. M4 PT-IP Mobility and Gait Start: 04/07/18 17:43 Freq: NEEDED Status: Active Protocol: Document 04/11/18 12:25 CLB (Rec: 04/11/18 13:51 CLB [id number]) PT-Transfer Assessment Sit to and From Stand Sit to and from Stand Contact Guard Assistance Use of Upper Extremities Equipment Transfer Assistive Device Gait Belt Front Wheeled Walker Orthotic/Prosthetic Devices or Brace: No Transfers Transfer Destination Chair Toilet Transfer Technique Stand Step Pivot Transfer Ability Level of Assist Contact Guard Assistance Comments Mobility Comments Pt needing cues for back precautions with pericare and no twisting while reaching for items at sink. Gait Assessment Gait Gait Assistance Required: Contact Guard Assist 1 Person Assist Distance (Feet) 20 Able to Maintain Weight Bearing Status Yes During Gait Assistive Devices Assistive Device Gait Belt Front Wheeled Walker Orthotic/Prosthetic Devices or Brace: No Gait Deviations General Gait Pattern Decreased Stride Length Decreased Feet Clearance Factors Limiting Gait Function Factors Limiting Gait Function Decreased Activity Tolerance Decreased Sensation Decreased Strength Difficulty Following Directions Limited Range of Motion Pain Poor Balance Poor Safety Awareness Comments Gait Comments Pt ambulates slowly with small step throught gait pattern. Pt continues to have decreased foot clearance with gait. Stair Climbing Assessment Comments Stair Climbing Comments not able to assess at this time due to LE weakness. M5 PT-IP Objective Assessments Start: 04/07/18 17:43 Freq: NEEDED Status: Active Protocol: Document 04/07/18 15:20 AB (Rec: 04/07/18 18:00 AB [id number]) Orientation Orientation/Cognition Level of Alertness Alert Orientation Name Age Birthday Month Date Year Day of Week Place Situation Safety Awareness Decreased Safety Awareness Gross Range of Motion Lower Extremity ROM Assessment Within Functional Limits Strength Lower Extremity Strength Assessment Bilaterally Impaired Comments Strength Comments LLE weaker than RLE L knee extension: 3+/5 R knee extension: 4-/5 Sensation Assessment Sensation Gross Sensation Right LE Impaired Left LE Impaired Sensation Description Numbness Comments Sensation Comments decrease LE sensation on B feet especially on lateral side of feet close of the 5th toe M6 PT-IP Treatment Start: 04/07/18 17:43 Freq: NEEDED Status: Active Protocol: Document 04/10/18 13:41 RCC (Rec: 04/10/18 14:28 RCC [id number]) Physical Therapy Treatment Education Education Provided Precautions Safety M7 PT-IP Assessment and Plan Start: 04/07/18 17:43 Freq: NEEDED Status: Active Protocol: Document 04/11/18 12:25 CLB (Rec: 04/11/18 13:51 CLB [id number]) PT Summary Assessment and Plan Potential Rehabilitation Potential Fair Summary Impairments Pain ROM Strength Balance Coordination Sensation Tone Cognition Bed Mobility Transfers Gait Activity Tolerance Progress Towards Goals Slow Progress due to Pain Slow Progress due to Medical Issues Assessment Summary Pt requires CGA with sit<> stand and ambulation. Pt needs cues to prevent breaking back precautions.Pt will benefit from SNF rehab to progress functional indep. and safety. Goals Bed Mobility Goal Minimal Assistance Transfer Goal Minimal Assistance Gait Goal Minimal Assistance Gait Distance 75 Other Goals up/down 1 step using FWW min A Days to Meet Goals 5 Frequency of Treatment Frequency Of Treatment Twice a Day Treatment Plan Physical Therapy Treatment Plan Bed Mobility Training Transfer Training Gait Training Therapeutic Exercise Balance Retraining Post Op Education Discharge Planning Hot or Cold Pack Neuromuscular Re-ed Coordination Retraining Manual Therapy Recommendations To Nursing Amount of Assist Needed 1 Person Assist Discharge Recommendations PT Discharge Recommendations SNF Rehab
[2018-04-11] MEDS: SENNOSIDES 8.6 MG TABLET 17.2 MG PO (20:59)
[2018-04-11] MEDS: NITROFURANTOIN 50 MG CAPSULE PO (21:00)
[2018-04-11] MEDS: SIMVASTATIN 40 MG TABLET PO (21:00)
[2018-04-12] MEDS: OXYCODONE IR 5 MG TABLET PO ×2 (03:23→13:07)
[2018-04-12] MEDS: TIZANIDINE 4 MG TABLET PO ×2 (06:01→12:13)
[2018-04-12] MEDS: PANTOPRAZOLE 20 MG TABLET PO (06:01)
[2018-04-12] MEDS: ACETAMINOPHEN 325 MG TABLET 650 MG PO ×2 (06:01→12:13)
[2018-04-12 06:15] VITALS: BP 171/73; PULSE 70; RESP 17; TEMP 36.7; O2SAT 96
--- NOTE | 2018-04-12 06:32 | PC.NURSE ---
Patient's BP elevated this morning to 171/73, patient having a lot of pain rating it a 10 out of 10. She was given 5mg Percolone earlier with no relief, and this time just wanted tylenol and the tinazidine.
[2018-04-12 07:40] VITALS: BP 142/60; PULSE 62; RESP 18; TEMP 36.8; O2SAT 96
--- NOTE | 2018-04-12 07:49 | P.PN_ITS ---
Subjective Date Patient Seen: 04/12/18 Time Patient Seen: 07:31 Interval history: Patient post op day 5 status post L3-L4, L4-L5 TLIF with Dr. Park. Patient is sitting bedside. Patient reports that she was in a lot of pain last night due to ambulating a lot throughout the day yesterday. She was able to get out of bed and walk around in her room, the halls and go to the bathroom with assistance yesterday. She reports being in severe pain early his morning and feeling nausea, however this has resolved with oxycodone and tizanidine; her pain is manageable at this time with. She reports continued left leg muscle spasms due to chronic MS. She reports her spasms are minimal if she isn't doing a lot of movement. Patient reports that she would like to be discharged with home health assistance instead of going to [facility]. Patient is home to also assist. Patient denies any fever, nausea, chills, SOB, chest pain or vomiting at this time. Exam Vital Signs (past 8 hours): - 04/12/18 06:15 Temperature 98.1 F Pulse Rate 70 Respiratory Rate 17 Blood Pressure 171/73 H Pulse Oximetry 96 Fraction of Inspired Oxygen 21 Oxygen Delivery Method Room Air Oxygen Flow Rate 0 Narrative Exam Narrative: Patient is is laying in bed comfortable without any signs of distress. Radial and dorsalis pedis pulses are 2+ and symmetric. Left leg calf is slightly tender to palpation compared to the right, otherwise calfs are soft and compressible. 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 Lumbar dressing is CDI. Senstaion to light touch intact in LE bilaterally. Logan intact. Objective Labs Result Diagrams: 04/08/18 06:55 Assessment & Plan Post-op Postoperative Procedures Operation Date: 04/07/18 07:45 Actual Procedures Side Surgeon p L3-4, L4-5 TLIF w/Posterior Instru. Leticia Park MD Postoperative day: 4 Postoperative status: doing well Postoperative plan: routine post-op care Postoperative plan narrative: Continue pain management. Consulted case management regarding home health. Continue physical therapy and likely to be discharged later on today with home health assistance or SNF. Time Spent With Patient less than 15 minutes
--- NOTE | 2018-04-12 08:49 | CM.DPC ---
Referral faxed to Lucina Bro
[2018-04-12 09:28] VITALS: BP 142/60; PULSE 62
[2018-04-12] MEDS: hydroCHLOROthiazide 25 MG TABLET PO (09:28)
[2018-04-12] MEDS: FUROSEMIDE 40 MG TABLET PO (09:28)
[2018-04-12] MEDS: DOCUSATE 100 MG CAPSULE PO (09:28)
[2018-04-12] MEDS: METOPROLOL ER 50 MG TABLET PO (09:28)
[2018-04-12] MEDS: TELMISARTAN 40 MG TABLET 80 MG PO (09:29)
[2018-04-12] MEDS: POTASSIUM CHLORIDE 20 MEQ TAB PO (09:29)
[2018-04-12] MEDS: MULTIVITAMIN 1 TABLET 1 TAB PO (09:29)
--- NOTE | 2018-04-12 09:35 | PT.IPTN ---
Current Diagnoses Other spondylosis with radiculopathy, lumbar region (04/07/18) Spinal stenosis, lumbar region with neurogenic claudication (04/07/18) Surgery Performed Operation Date: 04/07/18 07:45 Actual Procedures p L3-4, L4-5 TLIF w/Posterior Instru. - Leticia Park MD Physical Therapy Treatment Note M2 PT-IP Current Condition Start: 04/07/18 17:43 Freq: NEEDED Status: Active Protocol: Document 04/10/18 13:41 RCC (Rec: 04/10/18 14:28 RCC [id number]) Physical Therapy Current Condition Current Condition Evaluation Date 04/07/18 Treatment Diagnosis L3-4, L4-5 fusion, laminectomy ; difficulty in walking Onset Date 04/07/18 Precautions Lumbar Precautions Log Roll No Twisting Limit Bending Lifting Restriction of 10 lbs Gait Belt above Incisional Area Other Precautions Falls M3 PT-IP Subjective Start: 04/07/18 17:43 Freq: NEEDED Status: Active Protocol: Document 04/12/18 08:45 CLB (Rec: 04/12/18 09:35 CLB [id number]) Subjective Physical Therapy Visit Type Type Treatment Note Visit Start Time 08:45 Visit Stop Time 09:08 Number of [employer]OCK [employer] Visits 3 Physical Therapy Visit Comments Patient Comments Pt wants to go home today instead of going to SNF rehab. Therapy Pain Assessment Pain When Pain Assessed During Mobility Pain Present Pain Present Pain Reported Location Back Intensity 4 Scale Used Numeric (1 - 10) Description Spasm Pain Management Techniques Timing of Activity with Medications M4 PT-IP Mobility and Gait Start: 04/07/18 17:43 Freq: NEEDED Status: Active Protocol: Document 04/12/18 08:45 CLB (Rec: 04/12/18 09:35 CLB [id number]) PT-Transfer Assessment Sit to and From Stand Sit to and from Stand Standby Assistance Use of Upper Extremities Equipment Transfer Assistive Device Gait Belt Front Wheeled Walker Orthotic/Prosthetic Devices or Brace: No Transfers Transfer Destination Chair Transfer Technique Stand Step Pivot Transfer Ability Level of Assist Standby Assistance Comments Mobility Comments Pt continues to improve with sit<>stand with assisting with GB, is also good at giving cues for safety. Gait Assessment Gait Gait Assistance Required: Standby Assistance 1 Person Assist Distance (Feet) 100 Assistive Devices Assistive Device Gait Belt Front Wheeled Walker Orthotic/Prosthetic Devices or Brace: No Gait Deviations General Gait Pattern Decreased Stride Length Decreased Feet Clearance Factors Limiting Gait Function Factors Limiting Gait Function Decreased Activity Tolerance Decreased Strength Pain Comments Gait Comments Pt improving with ambulation increaseing distance to ~100ft this morning. Pt is SBA with in cross today. Pt has increased step stride and foot clearance today. Stair Climbing Assessment Evaluation Level of Assist On Stairs Contact Guard Assistance 1 Person Assistance Devices Stair Climbing Assistive Devices Front Wheel Walker Technique/Endurance Stair Climbing Direction Ascend and Descend Stair Climbing Technique Step to Step Number of Steps Climbed 1 Query Text: Stair Climbing Set # Repetitions (reps) 2 Comments Stair Climbing Comments Pt able to go up/down flatform step x2 with assisting w/walker and CGA. M5 PT-IP Objective Assessments Start: 04/07/18 17:43 Freq: NEEDED Status: Active Protocol: Document 04/07/18 15:20 AB (Rec: 04/07/18 18:00 AB [id number]) Orientation Orientation/Cognition Level of Alertness Alert Orientation Name Age Birthday Month Date Year Day of Week Place Situation Safety Awareness Decreased Safety Awareness Gross Range of Motion Lower Extremity ROM Assessment Within Functional Limits Strength Lower Extremity Strength Assessment Bilaterally Impaired Comments Strength Comments LLE weaker than RLE L knee extension: 3+/5 R knee extension: 4-/5 Sensation Assessment Sensation Gross Sensation Right LE Impaired Left LE Impaired Sensation Description Numbness Comments Sensation Comments decrease LE sensation on B feet especially on lateral side of feet close of the 5th toe M6 PT-IP Treatment Start: 04/07/18 17:43 Freq: NEEDED Status: Active Protocol: Document 04/10/18 13:41 RCC (Rec: 04/10/18 14:28 RCC [id number]) Physical Therapy Treatment Education Education Provided Precautions Safety M7 PT-IP Assessment and Plan Start: 04/07/18 17:43 Freq: NEEDED Status: Active Protocol: Document 04/12/18 08:45 CLB (Rec: 04/12/18 09:35 CLB [id number]) PT Summary Assessment and Plan Summary Impairments Pain ROM Strength Balance Coordination Sensation Tone Cognition Bed Mobility Transfers Gait Activity Tolerance Progress Towards Goals Safe For Discharge Goals Met Assessment Summary Pt is SBA-CGA for all mobility and is able to ambulate ~100 ft in cross today. Pt safely performed stairs with assisting. Pt is wanting to go home with assist instead of going to SNF rehab. Pt would benefit from services once home. Pt seems safe and able to d/c home with to assist when medically stable. Goals Bed Mobility Goal Minimal Assistance Transfer Goal Minimal Assistance Gait Goal Minimal Assistance Gait Distance 75 Other Goals up/down 1 step using FWW min A Days to Meet Goals 5 Frequency of Treatment Frequency Of Treatment Twice a Day Treatment Plan Physical Therapy Treatment Plan Bed Mobility Training Transfer Training Gait Training Therapeutic Exercise Balance Retraining Post Op Education Discharge Planning Hot or Cold Pack Neuromuscular Re-ed Coordination Retraining Manual Therapy Recommendations To Nursing Amount of Assist Needed 1 Person Assist Discharge Recommendations PT Discharge Recommendations Home with 02/02 Assist Home Health
--- NOTE | 2018-04-12 11:04 | OT.IP.TRT ---
Current Diagnoses Other spondylosis with radiculopathy, lumbar region (04/07/18) Spinal stenosis, lumbar region with neurogenic claudication (04/07/18) Surgery Performed Operation Date: 04/07/18 07:45 Actual Procedures p L3-4, L4-5 TLIF w/Posterior Instru. - Leticia Park MD Occupational Therapy Treatment Note M2 OT-IP Current Condition Start: 04/08/18 14:33 Freq: Status: Active Protocol: Document 04/08/18 14:25 PJM (Rec: 04/08/18 14:52 PJM [id number]) Occupational Therapy Current Condition Current Condition Evaluation Date 04/08/18 Treatment Diagnosis decreased self care, functional mobility s/p L3-4, L4-5 TLIF Post Operative Precautions Lumbar Precautions Log Roll No Twisting Limit Bending Lifting Restriction of 10 lbs Gait Belt above Incisional Area Other Precautions Falls M3 OT- IP Subjective and Pain Start: 04/08/18 14:33 Freq: Status: Active Protocol: Document 04/12/18 08:45 [facility] (Rec: 04/12/18 11:03 [facility] [id number]) OT- Subjective Occupational Therapy Visit Type Type Treatment Note Visit Start Time 08:25 Visit Stop Time 08:45 Total Visit Minutes 20 Notes Pt's here for family training. Occupational Therapy Visit Comments Patient/Caregiver Goals Pt wanting to go home now with home health as she is feeling and doing better. OT Pain Assessment Pain When Pain Assessed At Rest Pain Present Pain Present Denied Pain M4 OT- IP ADL's Start: 04/08/18 14:33 Freq: Status: Active Protocol: Document 04/12/18 08:45 [facility] (Rec: 04/12/18 11:03 [facility] [id number]) OT ADL-Dressing General Eval Upper Body Dressing Ability Independent Lower Body Dressing Ability Minimal Assistance Areas Needing Assistance Shoes Comments OT Dressing Comments Pt needing assist to kayla shoes over her heels. Pt issued film mounter to assist for dressing needs. OT ADL-Toileting Comments OT Toileting Comments Pt still has catheter in, but considering having it taken out. Pt usually wears pads during the day. OT ADL-Bathing Comments OT Bathing Comments Pt not wanting to shower at this time and states to get a BSC for home use. M5 OT- IP IADL's Start: 04/08/18 14:33 Freq: Status: Active Protocol: Document 04/08/18 14:25 PJM (Rec: 04/08/18 14:52 PJM [id number]) OT-Instrumental Activities of Daily Living Deficits IADL Deficits Identified Deficits Home Safety Awareness Awareness of Need for Assistance at Home Good Awareness Ability to Problem Solve Emergency Able to Problem Solve Situations Medication Management Medication Management No Deficits Identified Money Management Money Management No Deficits Identified Meal Preparation Meal Preparation Caregiver Provides Assist Meal Preparation Comments does most of cooking at home Early Childhood Teacher Early Childhood Teacher Caregiver Provides Assist Early Childhood Teacher Comments and daughter in law to assist PRN Driving Driving Caregiver Provides Assist Driving Comments to assist until pt able M6 OT- IP Functional Cognition Start: 04/08/18 14:33 Freq: Status: Active Protocol: Document 04/12/18 08:45 [facility] (Rec: 04/12/18 11:03 [facility] [id number]) Cognitive Factors Limiting Selfcare Function Cognitive Ability Level of Alertness Alert Patient Orientation Name Age Birthday Month Date Year Day of Week Place Situation Attention Span Ability Capable of Focused Attention Capable of Sustained Attention Ability to Follow Commands Able to Follow Multi-Step Commands Memory Description No Deficits Noted Safety Awareness No Deficits Noted M7 OT- IP Mobility and Balance Start: 04/08/18 14:33 Freq: Status: Active Protocol: Document 04/12/18 08:45 [facility] (Rec: 04/12/18 11:03 [facility] [id number]) OT- Bed Mobility Assessment Rolling Type of Rolling Roll to Right Level of Assistance Contact Guard Assistance Bedrails Supine to Sit Supine to Sit Assist Minimal Assistance Sit to Supine Sit to Supine Assist Minimal Assistance OT-Transfer Assessment Sit to and From Stand Sit to and from Stand Contact Guard Assistance Transfers Transfer Ability Contact Guard Assistance Technique Transfer Destination Bed Chair Transfer Technique Stand Step Pivot Devices Transfer Assistive Devices Gait Belt Front Wheeled Walker Comments Mobility Comments Much improved and able to safely assist pt for bed mobility and transfer needs. Suggested to have hold FWW next to the bed so pt able to use it as a bed rail. Pt's also having to assist with her legs into and out of the bed. OT- Balance Assessment Sitting Balance and Reactions Static Sitting Balance Ability Normal Dynamic Sitting Balance Ability Normal Standing Balance and Reactions Static Standing Balance Ability Good Dynamic Standing Balance Ability Fair M8 OT- IP Objective Assessments Start: 04/08/18 14:33 Freq: Status: Active Protocol: Document 04/08/18 14:25 PJM (Rec: 04/08/18 14:52 PJM [id number]) OT Gross Range of Motion Upper Extremity Range of Motion Assessment Within Functional Limits OT Strength Upper Extremity Strength Assessment Within Functional Limits Comments Strength Comments Pt feels DAREK is weaker than right from her M.S. but presents with equal mixer runner strength today. OT- Coordination Assessment Comments Coordination Comments BUE WFL OT-Muscle Tone Assessment Muscle Tone WNL Yes OT Sensation Assessment Comments Summary Comments Pt reports intermittent numbness in L hand, especially at night which is relieved by night wrist cockup splint. Pt also has numbness in R hand, but none today M9 OT- IP Assessment and Plan Start: 04/08/18 14:33 Freq: Status: Active Protocol: Document 04/12/18 08:45 [facility] (Rec: 04/12/18 11:03 [facility] [id number]) OT Summary Assessment and Plan Potential Rehabilitation Potential Good Summary OT Impairments Pain Strength Balance Functional Mobility Grooming Dressing Toileting Bathing Toilet Transfers Shower Transfers Progress Towards Goals Progressing Toward Goals Assessment Summary Pt doing well now and has completed family training for ADL's and bed mobility and able or safely assist pt for all needs. In addition, pt's children able to come and assistas well. Pt going home today with home health. Goals Days to Meet Goals 1 Frequency of Treatment Frequency Of Treatment Once a Day Treatment Plan OT Treatment Plan Patient/Family Education Discharge Planning Discharge Recommendations OT Discharge Recommendations Home with Assistance Home Health Home Equipment Needs [facility]
[2018-04-12 11:55] VITALS: PULSE 62; O2SAT 96
--- NOTE | 2018-04-12 12:09 | PM.DS.1 ---
History of Present Illness Date Patient Seen: 04/12/18 Time Patient Seen: 12:09 Chief complaint: L3-4 L4-5 TLIF Narrative: Patient has been having chronic back pain and worsening lumbar radiculopathy. Patient failed multiple conservative management with worsening pain weakness and numbness in her lower extremity. Patient has been having difficulty performing activity of daily living. After discussing risks benefits of treatment options, patient elected proceed with surgery. Patient was seen status post L3-L4, L4-L5 TLIF w/posterior instrumentation. Patient is doing well and pain is well controlled. She denies SOB, chest pain, nausea, vomiting or chills. Patient is home to assist her. Patient is ready to go home and is safe to do. Discharge Providers Date of admission: 04/07/18 06:22 Primary care physician: James Perez MD Consults: 04/07/18 13:10 Consult to Occupational Therapy Evaluate & Treat Comment: Physician Instructions: Evaluate and treat Consult to Physical Therapy Evaluate & Treat Comment: Physician Instructions: Evaluate and Treat 04/09/18 10:13 Consult to Discharge Planning Routine Comment: needs SNF placement Discharge provider: Elaine Croft PA-C Summary Discharge Diagnosis: 1. L3-4, L4-5 spinal stenosis 2. 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 Lumbar scoliosis Hospital Course: Patient was admitted status post L3-4, L4-5 TLIF w/Posterior Instrumentation by Dr. Park on 04/07/18. Patient tolerated procedure well with no major complications. Patient transferred to floor and seen by physical therapy who recommended that she be discharge home with assistance/home health outpatient PT. Her pain was well controlled with oxycodone, tylenol and tizanidine. Patient is stable and ready for discharge on 04/12/18. L calf is slightly tender to palpation compared to R, otherwise calfs are soft and compressible bilaterally. Status at Discharge Functional status at discharge: uses cane/walker Overall status at discharge: patient is progressing back to baseline Time Spent with Patient Less than 30 minutes Exam Vital Signs (past 8 hours): - 04/12/18 06:15 04/12/18 07:40 04/12/18 09:28 Temperature 98.1 F 98.3 F Pulse Rate 70 62 62 Respiratory Rate 17 18 Blood Pressure 171/73 H 142/60 H 142/60 H Pulse Oximetry 96 96 Fraction of Inspired Oxygen 21 Oxygen Delivery Method Room Air Oxygen Flow Rate 0 Narrative Exam Narrative: Patient is AOx3. Patient is sitting upright in chair in no acute distress. Radial and dorsalis pedis pulses are 2+ and symmetric bilaterally. Muscle strength adequate in regional vice president surgical sales, dorsiflexion and plantarflexion bilaterally. Sensation to light touch intact in LE bilaterally. L calf is slightly tender to palpation compared to R, otherwise calfs are soft and compressible bilaterally. Lumbar dressing CDI. Objective Labs Result Diagrams: 04/08/18 06:55 Discharge Plan Discharge Plan Patient Disposition: Home Health Service Transfer to: Home Health, Other Discharge Med Rec/Prescriptions Prescriptions: New oxycodone 5 mg Tablet 5 mg PO Q4-6H PRN (Reason: Pain, Severe (7-10)) Qty: 40 RF: 0 docusate sodium 100 mg capsule 100 mg PO BID Qty: 60 RF: 0 Continue aspirin [Aspir-81] 81 mg Tablet,Delayed Release (Dr/Ec) 81 mg PO BEDTIME Qty: 0 RF: 0 coenzyme Q10 300 mg Capsule 300 mg PO DAILY Qty: 0 RF: 0 Lacto.acidophilus-Bif.animalis [Probiotic] 5 billion cell Capsule, Sprinkle 1 cap PO DAILY Qty: 0 RF: 0 multivitamin [Multiple Vitamins] 1 EACH tablet 1 tab PO QDAY Qty: 0 RF: 0 potassium chloride [Klor-Con M20] 20 MEQ tablet,ER particles/crystals 20 meq PO QDAY Qty: 90 RF: 3 furosemide 40 MG tablet 40 mg PO QDAY Qty: 90 RF: 3 telmisartan-hydrochlorothiazid [Micardis HCT] 80 MG/25 MG tablet 1 tab PO QDAY Qty: 90 RF: 2 metoprolol succinate [Toprol XL] 50 mg tablet extended release 24 hr 50 mg PO BID Qty: 180 RF: 0 omeprazole 20 mg capsule,delayed release(DR/EC) 20 mg PO QDAY Qty: 90 RF: 3 nitrofurantoin macrocrystal 50 MG capsule 50 mg PO HS RF: 0 simvastatin [Zocor] 40 MG tablet 40 mg PO BEDTIME RF: 0 mupirocin 2 % ointment 2 % Topical BID RF: 0 albuterol sulfate [Ventolin HFA] 90 MCG/PUFF HFA aerosol inhaler 2 puff INH Q4HP PRN (Reason: Asthma) RF: 0 ketoconazole 2 % cream 1 applictn TOP BID PRN (Reason: blisters, sores) RF: 0 tizanidine [Zanaflex] 4 MG capsule 4 mg PO Q8H PRN (Reason: leg spasm) RF: 0 naproxen sodium [Aleve] 220 mg Capsule 440 mg PO BID RF: 0 Disabled Parking Permit 1 ea miscellaneous SEE INSTRUCTIONS RF: 0 Follow up/Referrals: Leticia Park MD [Family Provider] - 1 Week (Follow- up with Dr. Park at scheduled appointment.) Provider Discharge Instructions Diet: Diet as Tolerated Activity: Limit bending, lifting and twisting. Cold/Heat Therapy: cold compress PRN Skin/Wound/Dressing Care Report to your healthcare provider any signs of infection, such as:: chills, fever, night sweats, increased pain and unusual drainage Dressing: Keep dry and clean Visit Report/Discharge Packet Instructions: DI for Transforaminal Lumbar Interbody Fusion Visit Report Forms: Congestive Heart Failure, Stroke Signs & Symptoms Discharge Data Primary Care Provider: James Perez Attending Provider: Leticia Park Admit Date/Time: 04/07/18 06:22
--- NOTE | 2018-04-12 14:03 | PC.NURSE ---
Discharge note: Pt requested pain medication prior to d/c for pain level of 9/10, given oxycodone. Was given muscle relaxer and tylenol at noon per request. D/C instructions given to patient and , notified to f/u with MD for scheduled appointment as well for any questions and concerns, PIV not present, Pt states she took all belongings with her. Pt left in wheelchair with RN escort to car for discharge.
--- NOTE | 2018-04-12 15:53 | CM.DPC ---
DCP/continued: Reviewed chart. Received notification from Ortho/PA re: d/c plan. Patient has chosen to go home at time of d/c instead of SNF. Patient seen by both PT and OT and both recommend home with HH. Met with patient and spouse explained role. Provided them with contracted HH choice list and first choice is [facility]. Placed call to [facility] and spoke with Alessandra. Referral accepted. Orders, F2F, and clinical faxed to [facility] at [phone]. Confirmation received that fax had gone through. [facility] brochure provided to patient. SNF notified that bed no longer needed. P: Home today with [facility]. VIGNESH Pillai
== END 2018-04-12 13:20 | disposition home health service (06) | DRG 454 ==
PROVIDERS: Admitting Provider Orthopaedic Surgery Orthopaedic Surgery of the Spine; Family Provider Orthopaedic Surgery Orthopaedic Surgery of the Spine; PCP Family Medicine; Visit Provider Orthopaedic Surgery Orthopaedic Surgery of the Spine
PROC: 0SG10AJ Fusion of 2 or more Lumbar Vertebral Joints with Interbody Fusion Device, Posterior Approach, Anterior Column, Open Approach (ICD-10-PCS; principal; 2018-04-07 07:45)
DX: M48.062 Spinal stenosis, lumbar region with neurogenic claudication (principal); I50.30 Unspecified diastolic (congestive) heart failure; M47.26 Other spondylosis with radiculopathy, lumbar region; G35 Multiple sclerosis; Z87.891 Personal history of nicotine dependence; E66.9 Obesity, unspecified; Z68.37 Body mass index [BMI] 37.0-37.9, adult; M41.26 Other idiopathic scoliosis, lumbar region; M62.838 Other muscle spasm; I11.0 Hypertensive heart disease with heart failure
CPT/HCPCS: 36415; 72100; 76001; 85014; 85018; 94760; 94762; 97116; 97162; 97165; 97530; 97535; C1776; C9290; J0131; J0330; J1100; J1170; J2405; J2704; J3010

== ENCOUNTER 2018-07-17 14:16 | Emergency (ER) | payer MEDICARE, OTHER, SELFPAY ==
[2018-04-07 13:15] VITALS: BMI 36.7
[2018-07-17 14:38] VITALS: BP 129/77; PULSE 91; RESP 18; TEMP 36.6; O2SAT 97; BMI 43.0
[2018-07-17] MEDS: ONDANSETRON 4 MG ODT PO (14:50)
[2018-07-17 15:23] LABS: Prothrombin Time 11.5 SECONDS (10.1-12.7)
[2018-07-17] MEDS: SODIUM CHLORIDE 0.9% 1,000 ML 1000 ML IV ×2 (15:23→16:33)
[2018-07-17 15:25] LABS: Add Manual Diff / Slide Review NO; Basophils Percent Auto 0.6 % (0-2); Eosinophils Percent Auto 2.3 % (2-4); Hematocrit 37.7 % (36-46); Hemoglobin 12.8 g/dL (12.0-16.0); Mean Corpuscular HGB Conc 33.9 % (30-36); Mean Corpuscular Hemoglobin 28.8 PG (26-34); Mean Corpuscular Volume 85.1 fL (80-100); Monocytes Percent Auto 7.4 % (3-14); Neutrophils Absolute Auto 5600 /uL (1500-7000); Neutrophils Percent Auto 73.7 % (50-75); PTT Partial Thromboplastin Tim 28 SECONDS (26.4-36.2); Platelet Count 280 X10^3/uL (150-400); Red Blood Cell Count 4.44 X10^6/uL (4.0-5.2); Red Cell Distribution Width 14.4 % (11.6-14.8); White Blood Cell Count 7.6 X10^3/uL (4.5-11.0)
[2018-07-17 15:26] LABS: Alanine Aminotransferase 51 IU/L (9-52); Albumin 4.1 g/dL (3.5-5.0); Albumin Globulin Ratio 1.4 (1.0-2.8); Alkaline Phosphatase 93 U/L (38-126); Aspartate Aminotransferase 43 IU/L (14-36); Bilirubin Total 0.4 mg/dL (0.2-1.3); Blood Urea Nitrogen 27 mg/dL (7-17); Calcium 9.3 mg/dL (8.4-10.2); Carbon Dioxide 23 mmol/L (22-32); Chloride 100 mmol/L (98-107); Estimated Glomerular Filt Rate > 60.0 mL/min (>60); Globulin 2.9 g/dL (1.7-4.1); Glucose 102 mg/dL (80-110); HEMOLYSIS 46 (0-50); Lipase 28 U/L (23-300); Potassium 3.8 mmol/L (3.4-5.1); Sodium 135 mmol/L (137-145)
[2018-07-17 15:41] VITALS: BP 148/73; PULSE 89; RESP 18; TEMP 36.1; O2SAT 97
[2018-07-17 16:44] VITALS: BP 147/78; PULSE 75; RESP 17; O2SAT 98
--- NOTE | 2018-07-17 17:36 | ED_ITS ---
HPI - Nausea/Vomiting/Diarrhea <CESILIA Fragoso - Last Filed: 07/17/18 21:55> General Chief complaint: Nausea/Vomiting/Diarrhea Stated complaint: Vomiting/Diarrhea Time Seen by Provider: 07/17/18 15:37 Source: patient Mode of arrival: ambulatory Limitations: no limitations History of Present Illness HPI Narrative: 72-year-old female with history of hypertension is former smoker here for complaint of having nausea vomiting and diarrhea over the past 3 days. She denies having any abdominal pain. She denies any flank pain. No urinary symptoms. Last bowel movement was earlier today. She denies other contacts having similar symptoms. She denies any stressors or relievers of her symptoms. She has been using Imodium at home to help with the diarrhea. Related Data Home Medications Medication Instructions Recorded Confirmed aspirin [Aspir-81] 81 mg PO BEDTIME #0 11/08/12 05/31/18 coenzyme Q10 300 mg PO DAILY #0 sgl 03/16/13 05/31/18 Lacto.acidophilus-Bif.animalis 1 cap PO DAILY #0 05/09/16 05/31/18 [Probiotic] multivitamin [Multiple Vitamins] 1 tab PO QDAY #0 tab 05/09/16 05/31/18 albuterol sulfate [Ventolin HFA] 2 puff INH Q4HP PRN 04/01/18 05/31/18 ketoconazole 1 applictn TOP BID PRN 04/01/18 05/31/18 mupirocin 2 % TOPICAL BID 04/01/18 05/31/18 naproxen sodium [Aleve] 440 mg PO BID 04/01/18 05/31/18 tizanidine [Zanaflex] 4 mg PO Q8H PRN 04/01/18 05/31/18 Disabled [address]ing Permit 1 ea MISCELLANEOUS SEE INSTRUCTIONS 04/07/18 05/31/18 Previous Rx's Medication Instructions Recorded potassium chloride [Klor-Con M20] 20 meq PO QDAY #90 tab 01/19/17 furosemide 40 mg PO QDAY #90 tab 05/21/17 telmisartan-hydrochlorothiazid 1 tab PO QDAY #90 tab 11/03/17 [Micardis HCT] omeprazole 20 mg capsule,delayed 20 mg PO QDAY #90 cap 02/10/18 release docusate sodium 100 mg PO BID #60 cap 04/12/18 oxycodone 5 mg PO Q4-6H PRN #40 tab 04/12/18 simvastatin 40 mg tablet 40 mg PO BEDTIME #90 tab 04/14/18 metoprolol succinate ER 50 mg 50 mg PO BID #180 tab 05/11/18 tablet,extended release 24 hr amlodipine 10 mg tablet 10 mg PO DAILY #90 tab 05/31/18 nitrofurantoin macrocrystal 50 mg 50 mg PO HS #90 cap 07/14/18 capsule ondansetron 4 mg PO BID-TID PRN #6 tab 07/17/18 Allergies Allergy/AdvReac Type Severity Reaction Status Date / Time adhesive tape [ADHESIVE TAPE] Allergy Severe Blisters Verified 07/17/18 14:43 amoxicillin [From AUGMENTIN] Allergy Severe SWELLING Verified 07/17/18 14:43 clavulanic acid Allergy Severe SWELLING Verified 07/17/18 14:43 [From AUGMENTIN] codeine [CODEINE] Allergy Severe ITCHY Verified 07/17/18 14:43 SKIN, RED AND PEELED povidone-iodine Allergy Severe BLISTERS Verified 07/17/18 14:43 [POVIDONE-IODINE] SKIN Sulfa (Sulfonamide Allergy Severe ITCHY Verified 07/17/18 14:43 Antibiotics) SKIN, RED [SULFA (SULFONAMIDE AND PEELED ANTIBIOTICS)] vancomycin [VANCOMYCIN] Allergy Severe ITCHING Verified 07/17/18 14:43 AND BURNING Review of Systems <CESILIA Fragoso - Last Filed: 07/17/18 21:55> Constitutional Denies chills, Denies fever(s), Denies lethargy and Denies weakness Eyes Denies change in vision, Denies eye discharge, Denies irritation and Denies loss of vision ENT Ears, Nose, Mouth, and Throat: Denies change in voice, Denies neck pain and Denies sore throat Cardiovascular Denies chest pain, Denies irregular heart rhythm, Denies lightheadedness, Denies palpitations, Denies dyspnea, Denies dyspnea on exertion and Denies orthopnea Respiratory Denies cough, Denies dyspnea, Denies dyspnea on exertion and Denies wheezing Gastrointestinal Comments: Nausea vomiting and diarrhea over the past few days Genitourinary Denies hematuria, Denies flank pain, Denies urinary incontinence and Denies urinary urgency Musculoskeletal Denies neck pain Integumentary/Breasts Denies pruritus, Denies erythema, Denies rash and Denies wounds Neurologic Denies confusion, Denies loss of vision and Denies weakness Psychiatric Denies anxiety, Denies confusion, Denies depression, Denies homicidal ideation and Denies suicidal ideation Endocrine Denies palpitations Allergic/Immunologic Denies wheezing Exam <CESILIA Fragoso - Last Filed: 07/17/18 21:55> Initial Vital Signs Initial Vital Signs: Vital Signs Temperature 97.9 F 07/17/18 14:38 Pulse Rate 91 H 07/17/18 14:38 Respiratory Rate 18 07/17/18 14:38 Blood Pressure 129/77 07/17/18 14:38 Pulse Oximetry 97 07/17/18 14:38 Const General: cooperative and well developed Nutritional Appearance: well nourished Orientation: alert, awake, oriented x3 and not confused HENMT Mouth: oral mucosae normal and moist mucous membranes Eyes Conjunctivae: conjunctivae normal Sclera: sclerae normal Pupils: PERRL EOM: EOM intact bilaterally Resp Effort & Inspection: normal respiratory effort, able to speak in complete sentences, no respiratory distress and no use of accessory muscles Auscultation: clear to auscultation bilaterally, no rales, no rhonchi and no wheezes Cardio Rate: regular rate Rhythm: regular rhythm Heart Sounds: no click, no gallops, no murmurs and no rubs Pulses: normal peripheral pulses GI Inspection: non-distended Palpation: soft, no hepatosplenomegaly, No guarding, No pulsatile mass and No tender Auscultation: normal bowel sounds General: No CVA tenderness Skin General: no rashes or lesions noted, No jaundice and No petechiae Neuro General: alert, oriented x3, gait normal and no focal motor deficits Speech: speech normal <Katiuska Maldonado DO - Last Filed: 07/20/18 19:13> Initial Vital Signs Initial Vital Signs: Vital Signs Temperature 97.9 F 07/17/18 14:38 Pulse Rate 91 H 07/17/18 14:38 Respiratory Rate 18 07/17/18 14:38 Blood Pressure 129/77 07/17/18 14:38 Pulse Oximetry 97 07/17/18 14:38 Course <CESILIA Fragoso - Last Filed: 07/17/18 21:55> Orders Ordered: Discontinued Medications Sodium Chloride (Normal Saline 0.9%) 1,000 mls @ 1,000 mls/hr IV BOLUS PRN PRN Reason: Fluid replacement Last Infusion: 07/17/18 16:18 Dose: 0 mls/hr Admin: 07/17/18 15:23 Dose: 1,000 mls/hr Sodium Chloride (Normal Saline 0.9%) 1,000 mls @ 1,000 mls/hr IV BOLUS PRN PRN Reason: Fluid replacement Last Infusion: 07/17/18 17:30 Dose: 0 mls/hr Admin: 07/17/18 16:33 Dose: 1,000 mls/hr Ondansetron HCl (Zofran Odt) 4 mg PO NOW ONE Stop: 07/17/18 14:49 Last Admin: 07/17/18 14:50 Dose: 4 mg Ondansetron HCl (Zofran Odt Prepack) 1 bottle MISC SEEINSTR ONE Stop: 07/17/18 18:07 Vital Signs - 8 hr 07/17/18 14:38 07/17/18 15:41 07/17/18 16:44 Temperature 97.9 F 97 F L Pulse Rate 91 H 89 75 Respiratory Rate 18 18 17 Blood Pressure 129/77 Blood Pressure [Left Arm] 148/73 H 147/78 H Pulse Oximetry 97 97 98 07/17/18 18:06 Temperature Pulse Rate 81 Respiratory Rate 20 Blood Pressure 138/72 Blood Pressure [Left Arm] Pulse Oximetry 97 <Katiuska Maldonado DO - Last Filed: 07/20/18 19:13> Orders Ordered: Discontinued Medications Sodium Chloride (Normal Saline 0.9%) 1,000 mls @ 1,000 mls/hr IV BOLUS PRN PRN Reason: Fluid replacement Last Infusion: 07/17/18 16:18 Dose: 0 mls/hr Admin: 07/17/18 15:23 Dose: 1,000 mls/hr Sodium Chloride (Normal Saline 0.9%) 1,000 mls @ 1,000 mls/hr IV BOLUS PRN PRN Reason: Fluid replacement Last Infusion: 07/17/18 17:30 Dose: 0 mls/hr Admin: 07/17/18 16:33 Dose: 1,000 mls/hr Ondansetron HCl (Zofran Odt) 4 mg PO NOW ONE Stop: 07/17/18 14:49 Last Admin: 07/17/18 14:50 Dose: 4 mg Ondansetron HCl (Zofran Odt Prepack) 1 bottle MISC SEEINSTR ONE Stop: 07/17/18 18:07 Vital Signs - 8 hr 07/17/18 14:38 07/17/18 15:41 07/17/18 16:44 Temperature 97.9 F 97 F L Pulse Rate 91 H 89 75 Respiratory Rate 18 18 17 Blood Pressure 129/77 Blood Pressure [Left Arm] 148/73 H 147/78 H Pulse Oximetry 97 97 98 07/17/18 18:06 Temperature Pulse Rate 81 Respiratory Rate 20 Blood Pressure 138/72 Blood Pressure [Left Arm] Pulse Oximetry 97 MDM - Nausea/Vomiting/Diarrhea <CESILIA Fragoso - Last Filed: 07/17/18 21:55> Lab Data Result diagrams: 07/17/18 14:50 07/17/18 14:50 Lab Results 07/17/18 07/17/18 07/17/18 Range/Units 14:50 14:50 14:50 WBC 7.6 (4.5-11.0) X10^3/uL RBC 4.44 (4.0-5.2) X10^6/uL Hgb 12.8 (12.0-16.0) g/dL Hct 37.7 (36-46) % MCV 85.1 (80-100) fL MCH 28.8 (26-34) PG MCHC 33.9 (30-36) % RDW 14.4 (11.6-14.8) % Plt Count 280 (150-400) X10^3/uL Neut % (Auto) 73.7 (50-75) % Lymph % (Auto) 16.0 L (25-40) % [place] % (Auto) 7.4 (3-14) % Eos % (Auto) 2.3 (2-4) % Baso % (Auto) 0.6 (0-2) % Neut # (Auto) 5600 (0506-6341) /uL PT 11.5 (10.1-12.7) SECONDS INR 1.0 (0.9-1.3) APTT 28 D (26.4-36.2) SECONDS Sodium 135 L (137-145) mmol/L Potassium 3.8 (3.4-5.1) mmol/L Chloride 100 (98-107) mmol/L Carbon Dioxide 23 (22-32) mmol/L BUN 27 H (7-17) mg/dL Creatinine 0.90 (0.52-1.04) mg/dL Estimated GFR > 60.0 (>60) mL/min BUN/Creatinine Ratio 30.0 H (6-22) Glucose 102 (80-110) mg/dL Calcium 9.3 (8.4-10.2) mg/dL Total Bilirubin 0.4 (0.2-1.3) mg/dL AST 43 H (14-36) IU/L ALT 51 (9-52) IU/L Alkaline Phosphatase 93 (38-126) U/L Total Protein 7.0 (6.3-8.2) g/dL Albumin 4.1 (3.5-5.0) g/dL Globulin 2.9 (1.7-4.1) g/dL Albumin/Globulin Ratio 1.4 (1.0-2.8) Lipase 28 (23-300) U/L Urine RBC (0-5/HPF) Urine WBC (0-5/HPF) Ur Squamous Epith Cells Urine Bacteria (None) Ur Culture Indicated? Micro UA Comment 07/17/18 Range/Units 17:20 WBC (4.5-11.0) X10^3/uL RBC (4.0-5.2) X10^6/uL Hgb (12.0-16.0) g/dL Hct (36-46) % MCV (80-100) fL MCH (26-34) PG MCHC (30-36) % RDW (11.6-14.8) % Plt Count (150-400) X10^3/uL Neut % (Auto) (50-75) % Lymph % (Auto) (25-40) % [place] % (Auto) (3-14) % Eos % (Auto) (2-4) % Baso % (Auto) (0-2) % Neut # (Auto) (7473-6501) /uL PT (10.1-12.7) SECONDS INR (0.9-1.3) APTT (26.4-36.2) SECONDS Sodium (137-145) mmol/L Potassium (3.4-5.1) mmol/L Chloride (98-107) mmol/L Carbon Dioxide (22-32) mmol/L BUN (7-17) mg/dL Creatinine (0.52-1.04) mg/dL Estimated GFR (>60) mL/min BUN/Creatinine Ratio (6-22) Glucose (80-110) mg/dL Calcium (8.4-10.2) mg/dL Total Bilirubin (0.2-1.3) mg/dL AST (14-36) IU/L ALT (9-52) IU/L Alkaline Phosphatase (38-126) U/L Total Protein (6.3-8.2) g/dL Albumin (3.5-5.0) g/dL Globulin (1.7-4.1) g/dL Albumin/Globulin Ratio (1.0-2.8) Lipase (23-300) U/L Urine RBC 1-5/hpf (0-5/HPF) Urine WBC 5-10/hpf H (0-5/HPF) Ur Squamous Epith Cells 1-5 /hpf Urine Bacteria Many (>30) H (None) Ur Culture Indicated? Specimen cultured Micro UA Comment Not Reportable Urine Dip Bedside Urine Glucose Negative Bedside Urine Bilirubin - Negative Bedside Urine Ketone - Negative Urine Specific Bolt 1.010 Bedside Urine Occult Blood - Negative Bedside Urine pH 6.0 Bedside Urine Protein - Negative Bedside Urine Urobilinogen - Negative Bedside Urine Nitrite - Negative Bedside Urine Leukocytes + 70 Esterase MDM Narrative Medical decision making narrative: CBC and Chem panel were obtained were unremarkable. Lipase was obtained was unremarkable. Patient with no abdominal pain at this timeframe. Urinalysis was negative for urinary tract infection. Signs symptoms presents as viral illness. She is prescribed Zofran to help with the nausea and vomiting. Follow up with primary care provider next few days for re-evaluation. If any worsening symptoms return to the emergency room. <Katiuska Maldonado, DO - Last Filed: 07/20/18 19:13> Lab Data Lab Results 07/17/18 07/17/18 07/17/18 Range/Units 14:50 14:50 14:50 WBC 7.6 (4.5-11.0) X10^3/uL RBC 4.44 (4.0-5.2) X10^6/uL Hgb 12.8 (12.0-16.0) g/dL Hct 37.7 (36-46) % MCV 85.1 (80-100) fL MCH 28.8 (26-34) PG MCHC 33.9 (30-36) % RDW 14.4 (11.6-14.8) % Plt Count 280 (150-400) X10^3/uL Neut % (Auto) 73.7 (50-75) % Lymph % (Auto) 16.0 L (25-40) % [place] % (Auto) 7.4 (3-14) % Eos % (Auto) 2.3 (2-4) % Baso % (Auto) 0.6 (0-2) % Neut # (Auto) 5600 (2816-7314) /uL PT 11.5 (10.1-12.7) SECONDS INR 1.0 (0.9-1.3) APTT 28 D (26.4-36.2) SECONDS Sodium 135 L (137-145) mmol/L Potassium 3.8 (3.4-5.1) mmol/L Chloride 100 (98-107) mmol/L Carbon Dioxide 23 (22-32) mmol/L BUN 27 H (7-17) mg/dL Creatinine 0.90 (0.52-1.04) mg/dL Estimated GFR > 60.0 (>60) mL/min BUN/Creatinine Ratio 30.0 H (6-22) Glucose 102 (80-110) mg/dL Calcium 9.3 (8.4-10.2) mg/dL Total Bilirubin 0.4 (0.2-1.3) mg/dL AST 43 H (14-36) IU/L ALT 51 (9-52) IU/L Alkaline Phosphatase 93 (38-126) U/L Total Protein 7.0 (6.3-8.2) g/dL Albumin 4.1 (3.5-5.0) g/dL Globulin 2.9 (1.7-4.1) g/dL Albumin/Globulin Ratio 1.4 (1.0-2.8) Lipase 28 (23-300) U/L Urine RBC (0-5/HPF) Urine WBC (0-5/HPF) Ur Squamous Epith Cells Urine Bacteria (None) Ur Culture Indicated? Micro UA Comment 07/17/18 Range/Units 17:20 WBC (4.5-11.0) X10^3/uL RBC (4.0-5.2) X10^6/uL Hgb (12.0-16.0) g/dL Hct (36-46) % MCV (80-100) fL MCH (26-34) PG MCHC (30-36) % RDW (11.6-14.8) % Plt Count (150-400) X10^3/uL Neut % (Auto) (50-75) % Lymph % (Auto) (25-40) % [place] % (Auto) (3-14) % Eos % (Auto) (2-4) % Baso % (Auto) (0-2) % Neut # (Auto) (0607-6006) /uL PT (10.1-12.7) SECONDS INR (0.9-1.3) APTT (26.4-36.2) SECONDS Sodium (137-145) mmol/L Potassium (3.4-5.1) mmol/L Chloride (98-107) mmol/L Carbon Dioxide (22-32) mmol/L BUN (7-17) mg/dL Creatinine (0.52-1.04) mg/dL Estimated GFR (>60) mL/min BUN/Creatinine Ratio (6-22) Glucose (80-110) mg/dL Calcium (8.4-10.2) mg/dL Total Bilirubin (0.2-1.3) mg/dL AST (14-36) IU/L ALT (9-52) IU/L Alkaline Phosphatase (38-126) U/L Total Protein (6.3-8.2) g/dL Albumin (3.5-5.0) g/dL Globulin (1.7-4.1) g/dL Albumin/Globulin Ratio (1.0-2.8) Lipase (23-300) U/L Urine RBC 1-5/hpf (0-5/HPF) Urine WBC 5-10/hpf H (0-5/HPF) Ur Squamous Epith Cells 1-5 /hpf Urine Bacteria Many (>30) H (None) Ur Culture Indicated? Specimen cultured Micro UA Comment Not Reportable Urine Dip Bedside Urine Glucose Negative Bedside Urine Bilirubin - Negative Bedside Urine Ketone - Negative Urine Specific Bolt 1.010 Bedside Urine Occult Blood - Negative Bedside Urine pH 6.0 Bedside Urine Protein - Negative Bedside Urine Urobilinogen - Negative Bedside Urine Nitrite - Negative Bedside Urine Leukocytes + 70 Esterase Discharge Plan Departure Patient Disposition: Home Clinical Impression: Nausea vomiting and diarrhea Discharge Date/Time: 07/17/18 18:07 Interventions: ED Discharge Assessment Last Done: 07/17/18 18:06 Instructions: Nausea and Vomiting-Adult Activity Restrictions/Additional Instructions: Laboratory results today were unremarkable. Signs and symptoms presents as a viral illness. Use Zofran as prescribed help with the nausea. Plenty of fluids. Use Imodium [id number] as needed for diarrhea. Follow up with her primary care provider in the next few days for re-evaluation. For any worsening symptoms return to the emergency room. Prescriptions: New ondansetron 4 mg tablet,disintegrating 4 mg PO BID-TID PRN (Reason: nausea and vomiting) Qty: 6 RF: 0 No Action aspirin [Aspir-81] 81 mg Tablet,Delayed Release (Dr/Ec) 81 mg PO BEDTIME Qty: 0 RF: 0 coenzyme Q10 300 mg Capsule 300 mg PO DAILY Qty: 0 RF: 0 Lacto.acidophilus-Bif.animalis [Probiotic] 5 billion cell Capsule, Sprinkle 1 cap PO DAILY Qty: 0 RF: 0 multivitamin [Multiple Vitamins] 1 EACH tablet 1 tab PO QDAY Qty: 0 RF: 0 potassium chloride [Klor-Con M20] 20 MEQ tablet,ER particles/crystals 20 meq PO QDAY Qty: 90 RF: 3 furosemide 40 MG tablet 40 mg PO QDAY Qty: 90 RF: 3 telmisartan-hydrochlorothiazid [Micardis HCT] 80 MG/25 MG tablet 1 tab PO QDAY Qty: 90 RF: 2 omeprazole 20 mg capsule,delayed release(DR/EC) 20 mg PO QDAY Qty: 90 RF: 3 simvastatin [Zocor] 40 mg tablet 40 mg PO BEDTIME Qty: 90 RF: 3 metoprolol succinate [Toprol XL] 50 mg tablet extended release 24 hr 50 mg PO BID Qty: 180 RF: 3 nitrofurantoin macrocrystal 50 mg capsule 50 mg PO HS Qty: 90 RF: 3 amlodipine 10 mg tablet 10 mg PO DAILY Qty: 90 RF: 1 mupirocin 2 % ointment 2 % Topical BID RF: 0 albuterol sulfate [Ventolin HFA] 90 MCG/PUFF HFA aerosol inhaler 2 puff INH Q4HP PRN (Reason: Asthma) RF: 0 ketoconazole 2 % cream 1 applictn TOP BID PRN (Reason: blisters, sores) RF: 0 tizanidine [Zanaflex] 4 MG capsule 4 mg PO Q8H PRN (Reason: leg spasm) RF: 0 naproxen sodium [Aleve] 220 mg Capsule 440 mg PO BID RF: 0 Disabled Parking Permit 1 ea miscellaneous SEE INSTRUCTIONS RF: 0 oxycodone 5 mg Tablet 5 mg PO Q4-6H PRN (Reason: Pain, Severe (7-10)) Qty: 40 RF: 0 docusate sodium 100 mg capsule 100 mg PO BID Qty: 60 RF: 0 Referrals: James Perez MD [Primary Care Provider] - <Katiuska Maldonado DO - Last Filed: 07/20/18 19:13> Cosign ED Attending Cosignature Attestation: I was immediately available in the department for consultation. This documentation has been reviewed and I agree with assessment and plan. Supervised by Katiuska Maldonado DO
[2018-07-17 17:51] LABS: RBC Urine 1-5/HPF (0-5/HPF); WBC Urine 5-10/HPF (0-5/HPF)
[2018-07-17 17:52] LABS: Bacteria Urine Many (>30); Culture Indicated Urine Specimen Cultured; Squamous Epithelial Cell Urine 1-5 /HPF
[2018-07-17 18:06] VITALS: BP 138/72; PULSE 81; RESP 20; O2SAT 97
== END 2018-07-17 18:07 | disposition home or self-care (01) ==
PROVIDERS: Emergency Medicine; Emergency Provider Nurse Practitioner Family; Family Provider Orthopaedic Surgery Orthopaedic Surgery of the Spine; PCP Family Medicine
DX: R11.2 Nausea with vomiting, unspecified (principal); R19.7 Diarrhea, unspecified
CPT/HCPCS: 36591; 80053; 81003; 81015; 83690; 85025; 85610; 85730; 87077; 87086; 87186; 93005; 96360; 96361; 99283; 99284

== ENCOUNTER → 2018-09-27 11:45 | Outpatient (CLI) | payer MEDICARE, OTHER, SELFPAY ==
[2018-04-07 13:15] VITALS: BMI 36.7
[2018-09-27 12:36] LABS: Appearance Urine UA CLEAR; Bilirubin Urine UA NEGATIVE (NEGATIVE); Color Urine UA YELLOW; Glucose Urine UA NEGATIVE (Negative); Ketones Urine UA NEGATIVE (NEGATIVE); Leukocyte Esterase Urine UA TRACE (NEGATIVE); Nitrite Urine UA NEGATIVE (Negative); Occult Blood Urine UA TRACE-LYSED (Negative); Protein Urine UA NEGATIVE (Negative); Specific Gravity Urine UA 1.015 (1.000-1.035); Urobilinogen Urine UA 0.2 E.U./dL (0.2)
[2018-09-27 12:44] LABS: RBC Urine 0-1/HPF (0-5/HPF); Squamous Epithelial Cell Urine 0-1 /HPF; WBC Urine 0-1/HPF (0-5/HPF)
[2018-09-27 12:45] LABS: Bacteria Urine Few (2-10); Culture Indicated Urine Specimen Cultured
== END ==
PROVIDERS: Family Provider Orthopaedic Surgery Orthopaedic Surgery of the Spine; PCP Family Medicine; Visit Provider Family Medicine
DX: R30.0 Dysuria (principal)
CPT/HCPCS: 81001; 87086

== ENCOUNTER → 2019-01-21 08:20 | Outpatient (CLI) | payer MEDICARE, OTHER, SELFPAY ==
[2019-01-10 13:18] VITALS: BMI 36.7
[2019-01-21 10:20] LABS: BUN Creatinine Ratio 25.5 (6-22); Blood Urea Nitrogen 28 mg/dL (7-17); Estimated Glomerular Filt Rate 48.3 mL/min (>60)
== END ==
PROVIDERS: PCP Family Medicine; Visit Provider Family Medicine
DX: Z01.812 Encounter for preprocedural laboratory examination (principal)
CPT/HCPCS: 36415; 82565; 84520

== ENCOUNTER → 2019-01-31 13:35 | Outpatient (CLI) | payer MEDICARE, OTHER, SELFPAY ==
[2019-01-10 13:18] VITALS: BMI 36.7
--- NOTE | 2019-01-31 13:36 | DI.MRI.S_ITS ---
PROCEDURE: MR HEAD/BRAIN WO/W CON INDICATIONS: ms history weekness leg TECHNIQUE: Noncontrast axial T1 spin echo, axial T2 fast spin echo, sagittal and axial FLAIR, coronal T2 fast spin echo, axial gradient echo, axial diffusion and ADC through the brain. After the administration of contrast, axial and coronal T1 spin echo with fat saturation through the brain. COMPARISON: [facility], MR, BRAIN WITHOUT CONTRAST, 05/16/2015, 14:13. FINDINGS: Image quality: Partially degraded by motion artifact. CSF spaces: Basal cisterns are patent. No extra-axial fluid collections. Ventricles are normal in size and shape. Brain: No midline shift. No intracranial bleeds or masses. No abnormal intracranial enhancement. There is cerebral volume loss for age. There is a moderate degree of patchy high flare signal intensity within the pericallosal, periventricular, and subcortical white matter, which is not significantly changed, and is consistent with the given history of multiple sclerosis.. The brainstem appears normal. Diffusion-weighted images demonstrate no acute ischemic insults. No chronic ischemic insults. Normal intravascular flow voids are present. Skull and face: Calvarial marrow is normal in signal. Orbits appear normal. Sinuses: Sinuses and mastoids appear clear. IMPRESSION: 1. No significant change in white matter disease, which is in a distribution compatible with the given history of multiple sclerosis. 2. No acute process. No recent infarct. Dictated by: Katherine Rodriguez M.D. on 01/31/2019 at 15:24 Approved by: Katherine Rodriguez M.D. on 01/31/2019 at 15:29
== END ==
PROVIDERS: PCP Family Medicine; Visit Provider Family Medicine
DX: G35 Multiple sclerosis (principal); R29.898 Other symptoms and signs involving the musculoskeletal system
CPT/HCPCS: 70553; A9579

== ENCOUNTER 2019-07-01 13:00 | Outpatient (RCR) | payer MEDICARE, OTHER, SELFPAY ==
[2019-01-10 13:18] VITALS: BMI 36.7
--- NOTE | 2019-04-07 15:02 | PT.OIE ---
Current Diagnoses Multiple sclerosis (04/07/19) Weakness (04/07/19) Past Medical History (Last Reviewed 07/17/18 @ 17:50 by CESILIA Fragoso) Anxiety (Acute) Arthritis (Acute) Asthma (Chronic) Blister (Acute) Diastolic heart failure (Chronic) Eczema of both hands (Acute) Edema (Acute) Frequent UTI (Acute) GERD (gastroesophageal reflux disease) (Acute) Hyperlipidemia (Chronic) Hypertension (Chronic) Multiple sclerosis (Chronic) Retention of urine, unspecified (Chronic) RLS (restless legs syndrome) (Chronic) Urge and stress incontinence (Chronic) Past Surgical History (Last Reviewed 07/17/18 @ 17:50 by CESILIA Fragoso) H/O arthroscopic knee surgery (Resolved) Hx of foot surgery (Acute) Hx of tonsillectomy (Acute) S/P wrist surgery (Acute) Status post bilateral cataract extraction (Acute) Status post hysterectomy with oophorectomy (Resolved) Status post laparoscopic cholecystectomy (Resolved) Visit Care Team Role Provider Type James Perez MD Primary Care Provider Physician Specialty: Family Practice Address: [address] [place] [address], [facility] Email: [email or web address] Gabrielle Marinelli MD Attending Provider Non-Staff Specialty: Neurology Address: [address] [place] [address], [facility] Email: Physical Therapy Initial Evaluation PT-OP-A Visit Information Start: 04/07/19 12:57 Freq: Status: Active Protocol: Document 04/07/19 12:14 MB (Rec: 04/07/19 14:06 SHAUNA [id number]) Out-Patient Physical Therapy Visit Information Visit Information Visit Type Initial Evaluation Visit Start Time 12:14 Visit Stop Time 12:55 Total Visit Minutes 41 Visit Number 1 Number of REIN[employer] SUPERVISOR Visits 0 Evaluation Information Evaluation Date 04/07/19 Precautions Precautions Fall risk, increased tone RLE with attempted extension, B LE buckling with attempted standing PT-OP-B Current Condition Start: 04/07/19 12:57 Freq: Status: Active Protocol: Document 04/07/19 12:14 MB (Rec: 04/07/19 14:06 MB [id number]) Current Condition History of Current Condition Onset Date Progressive Current Complaints Pt reports gradual inability to walk and increasing buckling of her legs History of Current Condition Hx progressive MS, right ankle fusion and back surgery. Progressive trouble with walking Prior Treatments and Tests Spine and right ankle sxs, PT, pt states she just started a medication for LE spasming, cannot state what medication Treatment Goals Patient/Caregiver Goals To walk with walker. Her goal is to be able to walk outside. She first states that she would like to get back to walking a mile daily but she then appears to communicate that this is unlikely given her current presentaion in setting of progressive disease process. Prior Functional Status Baseline Function- ADL's Needs Assist Baseline Function- Mobility Needs Assist Baseline Function- Gait Currently, unable to walk d/t falling. Has been transferring and using w/c Baseline Function- Other Pt states she was walking with walker 3 weeks ago and when her legs collapsed and she fell. EMS had to help get her off of the floor. Current Functional Impairments (Reported) Functional Limitations- ADL's She reports mod I with showering while sitting on shower chair and use of rails as needed. Asst to tie her shoes. She performs ADL tasks sitting. Functional Limitations- Mobility/Gait Currently, unable to take a step without LEs buckling Personal Factors Other Personal Factors That May Effect Progressive disease, right Therapy/Recovery ankle fusion that pt states is failing and LLE flexion tone and spasming pain up to 9-10 /10 are barriers to PT. PT-OP-C Subjective Start: 04/07/19 12:57 Freq: Status: Active Protocol: Document 04/07/19 12:14 MB (Rec: 04/07/19 14:06 MB [id number]) OP-PT Subjective Patient Comments Patient Comments Pt is concerned about her gradual decrease in mobility. She would like to get back to walking with her walker. Her legs collapsed underneath her and she has had multiple falls requiring assist to get up. Recently, EMS had to help her up. Patient Reported Progress Worse PT-OP-D Balance Start: 04/07/19 12:57 Freq: Status: Active Protocol: Document 04/07/19 14:10 MB (Rec: 04/07/19 14:45 MB [id number]) OP-PT Balance Assessment Sitting Balance Static Sitting Balance Ability Good Dynamic Sitting Balance Ability Good Sitting Balance Comments UE support for sitting balance and must hold onto plinth when bending down to reach for her shoe to put it on. Standing Balance Static Standing Balance Ability Poor Dynamic Standing Balance Ability Poor Standing Balance Comments Pt holds onto chair in front of her for static standing 10 sec. She presents with B leg fatigue/buckling and uses heavy UE support. Pt attempts to lift one foot and then the other but the single stance leg (both right and left when single stance) deanna, requiring her to sit. CGA. Balance Tests Other Other Balance Tests Performed Pt unable to tolerate sit to stand testing trial or other static standing tests d/t LE buckling. Morgan Fall Scale Copyright Permission PT-OP-G Mobility & Gait Start: 04/07/19 12:57 Freq: Status: Active Protocol: Document 04/07/19 14:10 MB (Rec: 04/07/19 14:45 MB [id number]) OP Mobility Evaluation Bed Mobility Rolling Mod I. Heavy use of hands, uses hands to help move her left leg. Supine to and from Sit As above. Transfers Sit to Stand Superv to CGA, heavy use of hands to sit back and to push up to stand. Holds onto chair with standing 10 sec before legs buckle. With weight bearing, right foot is overpronated and she tends to stand on the toes of her left foot. She states that she feels that her LLE is getting shorter. Bed to Chair Transfers Superv. Pushes w/c forward and transfers forward to plinth, pivoting on her right foot, heavy use of hands on the plinth or w/c. Wheelchair Management Type of Wheelchair Standard w/c without leg rests Assessment Details Occ uses her hands and occ pulls with her right foot. Occ , her feet skim the floor. OP Gait Assessment Comments Gait Comments Unable to take full step today . She can weight shift once when standing to attempt step but then requires sitting. PT-OP-J Posture/Palpation/Skin Start: 04/07/19 12:57 Freq: Status: Active Protocol: Document 04/07/19 14:10 MB (Rec: 04/07/19 14:45 MB [id number]) Skin Assessment Edema Assessment Right Leg Comments Mild pitting edema B LEs proximal ankle to foot Left Leg Comments Mild pitting edema B LEs proximal ankle to foot PT-OP-K Range of Motion Start: 04/07/19 12:57 Freq: Status: Active Protocol: Document 04/07/19 14:10 MB (Rec: 04/07/19 14:45 MB [id number]) Hip Goniometric Range of Motion Hip ROM Limitations Comments LLE hip flexor contraction movements with attempted AROM left LE. Right hip flexion with ability to briefly lift her right LE off the plinth in supine. Knee Goniometric Range of Motion Knee ROM Limitations Comments Extensor lag with attempted SLR on the right leg. She has arthritic joint changes. LLE spasming with all attempted AROM. Ankle and Foot Goniometric Range of Motion Ankle and Foot ROM Limitations Comments B ankles with limited ROM. Unable to test LLE d/t increased proximal joints flexor tone with attempted passive and active movement of foot. 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 PT-OP-M Strength Start: 04/07/19 12:57 Freq: Status: Active Protocol: Document 04/07/19 14:10 MB (Rec: 04/07/19 14:45 MB [id number]) Hip Strength Hip Manual Muscle Testing Right Flexion (L2) 2+ Poor+ Abduction 2- Poor- Comments Testing in supine. Pt is unable to perform any MMT on LLE d/t flexion tone easily provoked. Knee Strength Knee Manual Muscle Testing Right Flexion (S2) 3- Fair- Extension (L3) 3- Fair- Comments Testing in supine. Unable to perform MMT on LLE d/t flexion tone easily provoked. PT-OP-T Assessment and Plan Start: 04/07/19 12:57 Freq: Status: Active Protocol: Document 04/07/19 14:10 MB (Rec: 04/07/19 14:45 MB [id number]) Physical Therapy Assessment Rehab Potential Rehabilitation Potential Fair Evaluation Complexity Number of Personal Factors/Comorbidities 3 or More Number of Body Systems Impaired 1-2 Clinical Presentation at Evaluation Evolving Impairments Impairments Activity Tolerance,Balance, Coordination,Edema,Functional Activities,Functional Mobility ,Gait,Integument,Pain,Posture, ROM,Sensation,Soft Tissue Mobility,Strength,Tone, Transfers Other Impairments Decreased proprioception all left toes. R toes are intact. Decreased sensation to light touch all dermatomes LLE. Other Concerns Fall Risk High Barriers to Rehabilitation Multiple body systems affected including central ( progressive disease, MS; history of lumbar surgery, reports knee and foot changes (right ankle fusion) and knee for TKR) Goals Four Jail Goal (LTG) Pt will gait train 25 feet with superv with RW by 06/07/19. 3 Jail Goal (LTG) Pt will perform progressive HEP with I by 06/07/19. 2 Biometric Screener Goal (LTG) Pt will perform 3 repeated reps of sit<->stand with mod I without LE buckling to reduce fall risk by 06/07/19. 1 Jail Goal (LTG) Pt will maintain standing balance with mod I and use of LRAD for at least 30 sec to decrease fall risk and prepare for gait by 06/07/19. Assessment Summary Assessment Pt is a 78 y/o female presenting with severe B LE weakness, reports of multiple falls, LE buckling when standing and LLE flexion tone with attempted passive and active ROM in supine in setting of progressive neurological disease of MS. Pt also reports history of lumbar surgery and right ankle fusion. She has had PT in the past and had a positive experience. She would like to get back to walking and to the pool. Her functional prognosis is guarded given progressive disease and multiple orthopedic changes as well as increased body habitus. Physical Therapy Plan Frequency and Duration Frequency of Treatment 2x/Week Duration of Treatment 8 weeks Plan of Care Start Date 04/07/19 Plan of Care End Date 06/07/19 Therapeutic Interventions Therapeutic Interventions Aquatic Therapy,Balance Training,Canalithic Repositioning,Coordination Training,Gait Training,Home Exercise Program,Manual Therapy,Neuromuscular Re- education,Patient/Caregiver Education,Self-Care/Home Management,Sensory Integration ,Soft Tissue Mobilization, Taping,Therapeutic Activities, Therapeutic Exercises, Wheelchair Management Modalities Cold Pack/Ice Massage,Electric Stimulation,Hot Packs, Ultrasound
--- NOTE | 2019-04-12 12:27 | PT.OTN ---
Current Diagnoses Multiple sclerosis (04/12/19) Weakness (04/12/19) Physical Therapy Treatment Note PT-OP-A Visit Information Start: 04/07/19 12:57 Freq: Status: Active Protocol: Document 04/12/19 12:01 MB (Rec: 04/12/19 12:13 MB [id number]) Out-Patient Physical Therapy Visit Information Visit Information Visit Type Treatment Note Visit Note Initiated NuStep and gait training this date. Improved mobility since initial assessment. Visit Start Time 10:25 Visit Stop Time 11:12 Total Visit Minutes 47 Visit Number 2/10 Number of ALLIANCE CONSULTANT Visits 0 Precautions Precautions Fall risk PT-OP-B Current Condition Start: 04/07/19 12:57 Freq: Status: Active Protocol: Document 04/07/19 12:14 MB (Rec: 04/07/19 14:06 MB [id number]) Current Condition History of Current Condition Onset Date Progressive Current Complaints Pt reports gradual inability to walk and increasing buckling of her legs History of Current Condition Hx progressive MS, right ankle fusion and back surgery. Progressive trouble with walking Prior Treatments and Tests Spine and right ankle sxs, PT, pt states she just started a medication for LE spasming, cannot state what medication Treatment Goals Patient/Caregiver Goals To walk with walker. Her goal is to be able to walk outside. She first states that she would like to get back to walking a mile daily but she then appears to communicate that this is unlikely given her current presentaion in setting of progressive disease process. Prior Functional Status Baseline Function- ADL's Needs Assist Baseline Function- Mobility Needs Assist Baseline Function- Gait Currently, unable to walk d/t falling. Has been transferring and using w/c Baseline Function- Other Pt states she was walking with walker 3 weeks ago and when her legs collapsed and she fell. EMS had to help get her off of the floor. Current Functional Impairments (Reported) Functional Limitations- ADL's She reports mod I with showering while sitting on shower chair and use of rails as needed. Asst to tie her shoes. She performs ADL tasks sitting. Functional Limitations- Mobility/Gait Currently, unable to take a step without LEs buckling Personal Factors Other Personal Factors That May Effect Progressive disease, right Therapy/Recovery ankle fusion that pt states is failing and LLE flexion tone and spasming pain up to 9-10 10 are barriers to PT. PT-OP-C Subjective Start: 04/07/19 12:57 Freq: Status: Active Protocol: Document 04/12/19 12:01 MB (Rec: 04/12/19 12:13 MB [id number]) OP-PT Subjective Patient Comments Patient Comments Pt states that she walked a short distance in the house this morning with her rollator . She has to sit down on it frequently d/t concerns that her legs might give way. PT-OP-D Balance Start: 04/07/19 12:57 Freq: Status: Active Protocol: Document 04/07/19 14:10 MB (Rec: 04/07/19 14:45 MB [id number]) OP-PT Balance Assessment Sitting Balance Static Sitting Balance Ability Good Dynamic Sitting Balance Ability Good Sitting Balance Comments UE support for sitting balance and must hold onto plinth when bending down to reach for her shoe to put it on. Standing Balance Static Standing Balance Ability Poor Dynamic Standing Balance Ability Poor Standing Balance Comments Pt holds onto chair in front of her for static standing 10 sec. She presents with B leg fatigue/buckling and uses heavy UE support. Pt attempts to lift one foot and then the other but the single stance leg (both right and left when single stance) deanna, requiring her to sit. CGA. Balance Tests Other Other Balance Tests Performed Pt unable to tolerate sit to stand testing trial or other static standing tests d/t LE buckling. Morgan Fall Scale Copyright Permission PT-OP-G Mobility & Gait Start: 04/07/19 12:57 Freq: Status: Active Protocol: Document 04/12/19 12:01 MB (Rec: 04/12/19 12:13 MB [id number]) OP Mobility Evaluation Transfers Sit to Stand Cues to lock w/c and rollator with sit to stand trials from one to the another and back. Pt occ performs a SPT turn and occ performs transfer facing surface she is transferring to (NuStep or w/c), holding onto surface she is transferring to and then reaching around as she pivots or takes small steps to sit. Wheelchair Management Type of Wheelchair Standard w/c Assessment Details Pt holds one leg up with the other foot occ, pushes wheelchair with UEs OP Gait Assessment Gait Gait Assistance Required: Contact Guard Assist Assistive Devices Assistive Device Front Wheeled Walker,4 Wheeled Walker Gait Deviations General Gait Pattern Decreased Stride Length, Decreased Feet Clearance, Flexed Trunk,Narrow Based Gait ,Step-to Gait Factors Limiting Gait Function Factors Limiting Gait Function Abnormal Tonal Influences, Decreased Activity Tolerance, Decreased Strength,Limited Range of Motion,Pain Comments Gait Comments Gait trained 20'x4 and 40'x2; equally divided between use of her rollator and hospital 2WRW. Pt presents with increased knee flexion and buckling, greater on the right , right ankle fusion and little push off, improved left PF tone with WB, step-to gait , quick fatigue, occ c/o right calf discomfort. She has heavy use of UEs, flexed trunk . PT-OP-J Posture/Palpation/Skin Start: 04/07/19 12:57 Freq: Status: Active Protocol: Document 04/07/19 14:10 MB (Rec: 04/07/19 14:45 MB [id number]) Skin Assessment Edema Assessment Right Leg Comments Mild pitting edema B LEs proximal ankle to foot Left Leg Comments Mild pitting edema B LEs proximal ankle to foot PT-OP-K Range of Motion Start: 04/07/19 12:57 Freq: Status: Active Protocol: Document 04/07/19 14:10 MB (Rec: 04/07/19 14:45 MB [id number]) Hip Goniometric Range of Motion Hip ROM Limitations Comments LLE hip flexor contraction movements with attempted AROM left LE. Right hip flexion with ability to briefly lift her right LE off the plinth in supine. Knee Goniometric Range of Motion Knee ROM Limitations Comments Extensor lag with attempted SLR on the right leg. She has arthritic joint changes. LLE spasming with all attempted AROM. Ankle and Foot Goniometric Range of Motion Ankle and Foot ROM Limitations Comments B ankles with limited ROM. Unable to test LLE d/t increased proximal joints flexor tone with attempted passive and active movement of foot. 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 PT-OP-M Strength Start: 04/07/19 12:57 Freq: Status: Active Protocol: Document 04/07/19 14:10 MB (Rec: 04/07/19 14:45 MB [id number]) Hip Strength Hip Manual Muscle Testing Right Flexion (L2) 2+ Poor+ Abduction 2- Poor- Comments Testing in supine. Pt is unable to perform any MMT on LLE d/t flexion tone easily provoked. Knee Strength Knee Manual Muscle Testing Right Flexion (S2) 3- Fair- Extension (L3) 3- Fair- Comments Testing in supine. Unable to perform MMT on LLE d/t flexion tone easily provoked. PT-OP-Q Treatments Start: 04/12/19 12:13 Freq: Status: Active Protocol: Document 04/12/19 12:01 MB (Rec: 04/12/19 12:25 MB [id number]) Cardio Equipment Recumbent Stepper (Sci-Fit) Duration (Minutes) 10 Resistance 1.5 Gait Training Gait Activity 1 Description See Gait description from assessment of it today PT-OP-T Assessment and Plan Start: 04/07/19 12:57 Freq: Status: Active Protocol: Document 04/12/19 12:01 MB (Rec: 04/12/19 12:13 MB [id number]) Physical Therapy Assessment Progress Towards Goals Progress Towards Goals Progressing Toward Goals Assessment Summary Assessment Pt is moving better this date and is able to gait train and start using the NuStep. Plan to transition to land PT 1x/wk and aquatic PT 1x/wk as schedule allows. Con't functional strengthening, balance and gait training. Physical Therapy Plan Frequency and Duration Frequency of Treatment 2x/Week Duration of Treatment 8 weeks Plan of Care Start Date 04/07/19 Plan of Care End Date 06/07/19 Therapeutic Interventions Therapeutic Interventions Aquatic Therapy,Balance Training,Coordination Training ,Gait Training,Home Exercise Program,Manual Therapy, Neuromuscular Re-education, Patient/Caregiver Education, Self-Care/Home Management, Taping,Therapeutic Activities, Therapeutic Exercises, Wheelchair Management Modalities Cold Pack/Ice Massage,Electric Stimulation,Ultrasound
--- NOTE | 2019-04-15 16:50 | PT.OTN ---
Current Diagnoses Multiple sclerosis (04/15/19) Weakness (04/15/19) Physical Therapy Treatment Note PT-OP-A Visit Information Start: 04/07/19 12:57 Freq: Status: Active Protocol: Document 04/15/19 11:00 LJ (Rec: 04/15/19 16:50 LJ [id number]) Out-Patient Physical Therapy Visit Information Visit Information Visit Type Aquatic Treatment Note Visit Start Time 11:00 Visit Stop Time 11:48 Total Visit Minutes 48 Visit Number 3/10 Number of PATCHING MACHINE OPERATOR Visits 1 Precautions Precautions Fall risk PT-OP-B Current Condition Start: 04/07/19 12:57 Freq: Status: Active Protocol: Document 04/07/19 12:14 MB (Rec: 04/07/19 14:06 MB [id number]) Current Condition History of Current Condition Onset Date Progressive Current Complaints Pt reports gradual inability to walk and increasing buckling of her legs History of Current Condition Hx progressive MS, right ankle fusion and back surgery. Progressive trouble with walking Prior Treatments and Tests Spine and right ankle sxs, PT, pt states she just started a medication for LE spasming, cannot state what medication Treatment Goals Patient/Caregiver Goals To walk with walker. Her goal is to be able to walk outside. She first states that she would like to get back to walking a mile daily but she then appears to communicate that this is unlikely given her current presentaion in setting of progressive disease process. Prior Functional Status Baseline Function- ADL's Needs Assist Baseline Function- Mobility Needs Assist Baseline Function- Gait Currently, unable to walk d/t falling. Has been transferring and using w/c Baseline Function- Other Pt states she was walking with walker 3 weeks ago and when her legs collapsed and she fell. EMS had to help get her off of the floor. Current Functional Impairments (Reported) Functional Limitations- ADL's She reports mod I with showering while sitting on shower chair and use of rails as needed. Asst to tie her shoes. She performs ADL tasks sitting. Functional Limitations- Mobility/Gait Currently, unable to take a step without LEs buckling Personal Factors Other Personal Factors That May Effect Progressive disease, right Therapy/Recovery ankle fusion that pt states is failing and LLE flexion tone and spasming pain up to 9-10 /10 are barriers to PT. PT-OP-C Subjective Start: 04/07/19 12:57 Freq: Status: Active Protocol: Document 04/15/19 11:00 LJ (Rec: 04/15/19 16:50 LJ [id number]) OP-PT Subjective Patient Comments Patient Comments Pt arrived 12 min early and sat in WC waiting for therapy. PT-OP-D Balance Start: 04/07/19 12:57 Freq: Status: Active Protocol: Document 04/07/19 14:10 MB (Rec: 04/07/19 14:45 MB [id number]) OP-PT Balance Assessment Sitting Balance Static Sitting Balance Ability Good Dynamic Sitting Balance Ability Good Sitting Balance Comments UE support for sitting balance and must hold onto plinth when bending down to reach for her shoe to put it on. Standing Balance Static Standing Balance Ability Poor Dynamic Standing Balance Ability Poor Standing Balance Comments Pt holds onto chair in front of her for static standing 10 sec. She presents with B leg fatigue/buckling and uses heavy UE support. Pt attempts to lift one foot and then the other but the single stance leg (both right and left when single stance) deanna, requiring her to sit. CGA. Balance Tests Other Other Balance Tests Performed Pt unable to tolerate sit to stand testing trial or other static standing tests d/t LE buckling. Morgan Fall Scale Copyright Permission PT-OP-G Mobility & Gait Start: 04/07/19 12:57 Freq: Status: Active Protocol: Document 04/12/19 12:01 MB (Rec: 04/12/19 12:13 MB [id number]) OP Mobility Evaluation Transfers Sit to Stand Cues to lock w/c and rollator with sit to stand trials from one to the another and back. Pt occ performs a SPT turn and occ performs transfer facing surface she is transferring to (NuStep or w/c), holding onto surface she is transferring to and then reaching around as she pivots or takes small steps to sit. Wheelchair Management Type of Wheelchair Standard w/c Assessment Details Pt holds one leg up with the other foot occ, pushes wheelchair with UEs OP Gait Assessment Gait Gait Assistance Required: Contact Guard Assist Assistive Devices Assistive Device Front Wheeled Walker,4 Wheeled Walker Gait Deviations General Gait Pattern Decreased Stride Length, Decreased Feet Clearance, Flexed Trunk,Narrow Based Gait ,Step-to Gait Factors Limiting Gait Function Factors Limiting Gait Function Abnormal Tonal Influences, Decreased Activity Tolerance, Decreased Strength,Limited Range of Motion,Pain Comments Gait Comments Gait trained 20'x4 and 40'x2; equally divided between use of her rollator and hospital 2WRW. Pt presents with increased knee flexion and buckling, greater on the right , right ankle fusion and little push off, improved left PF tone with WB, step-to gait , quick fatigue, occ c/o right calf discomfort. She has heavy use of UEs, flexed trunk . PT-OP-J Posture/Palpation/Skin Start: 04/07/19 12:57 Freq: Status: Active Protocol: Document 04/07/19 14:10 MB (Rec: 04/07/19 14:45 MB [id number]) Skin Assessment Edema Assessment Right Leg Comments Mild pitting edema B LEs proximal ankle to foot Left Leg Comments Mild pitting edema B LEs proximal ankle to foot PT-OP-K Range of Motion Start: 04/07/19 12:57 Freq: Status: Active Protocol: Document 04/07/19 14:10 MB (Rec: 04/07/19 14:45 MB [id number]) Hip Goniometric Range of Motion Hip ROM Limitations Comments LLE hip flexor contraction movements with attempted AROM left LE. Right hip flexion with ability to briefly lift her right LE off the plinth in supine. Knee Goniometric Range of Motion Knee ROM Limitations Comments Extensor lag with attempted SLR on the right leg. She has arthritic joint changes. LLE spasming with all attempted AROM. Ankle and Foot Goniometric Range of Motion Ankle and Foot ROM Limitations Comments B ankles with limited ROM. Unable to test LLE d/t increased proximal joints flexor tone with attempted passive and active movement of foot. 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 PT-OP-M Strength Start: 04/07/19 12:57 Freq: Status: Active Protocol: Document 04/07/19 14:10 MB (Rec: 04/07/19 14:45 MB [id number]) Hip Strength Hip Manual Muscle Testing Right Flexion (L2) 2+ Poor+ Abduction 2- Poor- Comments Testing in supine. Pt is unable to perform any MMT on LLE d/t flexion tone easily provoked. Knee Strength Knee Manual Muscle Testing Right Flexion (S2) 3- Fair- Extension (L3) 3- Fair- Comments Testing in supine. Unable to perform MMT on LLE d/t flexion tone easily provoked. PT-OP-Q Treatments Start: 04/12/19 12:13 Freq: Status: Active Protocol: Document 04/12/19 12:01 MB (Rec: 04/12/19 12:25 MB [id number]) Cardio Equipment Recumbent Stepper (Sci-Fit) Duration (Minutes) 10 Resistance 1.5 Gait Training Gait Activity 1 Description See Gait description from assessment of it today PT-OP-S Aquatic Treatment Start: 04/12/19 12:13 Freq: Status: Active Protocol: Document 04/15/19 11:00 LJ (Rec: 04/15/19 16:50 LJ [id number]) Aquatics Treatment Pool Entry/Exit Pool Entry/Exit Method Lift Assistance Moderate Assistance Comments pt unsteady and unable to control LEs for safe transfers w/o assist Water Walking Backwards Water Level Waist Level Walking Equipment Ankle Weight- 2.5# Level of Assistance Moderate Assistance Comments verbal and manual cues Sideways Water Level Chest Level Walking Equipment Ankle Weight- 2.5# Level of Assistance Moderate Assistance,Verbal Cues Comments blue float Forwards Water Level Chest Level Walking Equipment Ankle Weight- 2.5# Level of Assistance Moderate Assistance,Verbal Cues Comments posterior lean, RLE pronated; blue float Lower Extremity Exercises Assisted SLS Details at wall Body Position Standing Water Level Chest Level Equipment Ankle Weight- 2.5# Reps/Duration 5x bilat Comments mod assistance and verbal cues weight shifting Details hand hold at wall Body Position Standing Water Level Chest Level Equipment Ankle Weight- 2.5# Reps/Duration 3 min hip extension Details in corner Body Position Standing Water Level Chest Level Equipment Ankle Weight- 2.5# Reps/Duration 10 bilat Comments verbal and manual cues with mod assist Lower Extremity Stretches HS Body Position Standing Water Level Chest Level Equipment Small Noodle Spinal Exercises spinal extension Details spinal extension to correct forward lean Body Position Standing Water Level Chest Level Equipment Ankle Weight- 2.5# Reps/Duration 3 min Comments extend and hold position with handhold on wall [place] Activities [place] Activities Bicycle,Cross Country,Hip Abduction/Adduction Equipment blue float, #2.5 wts Duration 10 min Comments difficulty with hip extension PT-OP-T Assessment and Plan Start: 04/07/19 12:57 Freq: Status: Active Protocol: Document 04/15/19 11:00 ETHAN (Rec: 04/15/19 16:50 [email or web address]) Physical Therapy Assessment Rehab Potential Rehabilitation Potential Fair Evaluation Complexity Number of Personal Factors/Comorbidities 3 or More Number of Body Systems Impaired 1-2 Clinical Presentation at Evaluation Evolving Impairments Impairments Activity Tolerance,Balance, Coordination,Edema,Functional Activities,Functional Mobility ,Gait,Integument,Pain,Posture, ROM,Sensation,Soft Tissue Mobility,Strength,Tone, Transfers Other Impairments Decreased proprioception all left toes. R toes are intact. Decreased sensation to light touch all dermatomes LLE. Other Concerns Fall Risk High Barriers to Rehabilitation Multiple body systems affected including central ( progressive disease, MS; history of lumbar surgery, reports knee and foot changes (right ankle fusion) and knee for TKR) Goals Four Long-Term Goal (LTG) Pt will gait train 25 feet with superv with RW by 06/07/19. 3 Paint Process Engineer Goal (LTG) Pt will perform progressive HEP with I by 06/07/19. 2 Long-Term Goal (LTG) Pt will perform 3 repeated reps of sit<->stand with mod I without LE buckling to reduce fall risk by 06/07/19. 1 Paint Process Engineer Goal (LTG) Pt will maintain standing balance with mod I and use of LRAD for at least 30 sec to decrease fall risk and prepare for gait by 06/07/19. Assessment Summary Assessment Pt was dropped off by kenney in her WC. She wheeled herself out to the pool deck several minutes early when she was assisted by the wire communications engineer and general manager farm with the lift chair and floatation device. This therapist immediately assisted pt with proper floatation and requested she remain in the lift chair until her scheduled appointment. Pt requires mod assist with walking activities and standing balance exercises due to weakness, posterior lean, and deficit in LE control. Ankle wts helpful in conjunction with blue float for stability. Pt requires min-mod assist with all activities. In deep water pt was more stable and better able to exercise for strengthening. She requires assist in the locker room and was informed with her that he needs to assist her in the staff break room and she is not to be in the locker room alone due to safety issues with transfers and balance concerns. She is a high fall risk and she needs constant supervision while at the pool. Physical Therapy Plan Frequency and Duration Frequency of Treatment 2x/Week Duration of Treatment 8 weeks Plan of Care Start Date 04/07/19 Plan of Care End Date 06/07/19 Therapeutic Interventions Therapeutic Interventions Aquatic Therapy,Balance Training,Coordination Training ,Gait Training,Home Exercise Program,Manual Therapy, Neuromuscular Re-education, Patient/Caregiver Education, Self-Care/Home Management, Taping,Therapeutic Activities, Therapeutic Exercises, Wheelchair Management Modalities Cold Pack/Ice Massage,Electric Stimulation,Ultrasound Next Visit Focus/Plan Next Note Type Treatment Note Next Visit Plan Continue with land and aquatic therapy with emphasis on strengthening, balance, transfers, and gait training.
--- NOTE | 2019-04-20 16:33 | PT.OTN ---
Current Diagnoses Multiple sclerosis (04/20/19) Weakness (04/20/19) Physical Therapy Treatment Note PT-OP-A Visit Information Start: 04/07/19 12:57 Freq: Status: Active Protocol: Document 04/20/19 11:00 LJ (Rec: 04/20/19 16:33 LJ [id number]) Out-Patient Physical Therapy Visit Information Visit Information Visit Type Aquatic Treatment Note Visit Start Time 11:00 Visit Stop Time 11:48 Total Visit Minutes 48 Visit Number 4/10 Number of JINRIKISHA DRIVER Visits 2 Precautions Precautions Fall risk PT-OP-B Current Condition Start: 04/07/19 12:57 Freq: Status: Active Protocol: Document 04/07/19 12:14 MB (Rec: 04/07/19 14:06 MB [id number]) Current Condition History of Current Condition Onset Date Progressive Current Complaints Pt reports gradual inability to walk and increasing buckling of her legs History of Current Condition Hx progressive MS, right ankle fusion and back surgery. Progressive trouble with walking Prior Treatments and Tests Spine and right ankle sxs, PT, pt states she just started a medication for LE spasming, cannot state what medication Treatment Goals Patient/Caregiver Goals To walk with walker. Her goal is to be able to walk outside. She first states that she would like to get back to walking a mile daily but she then appears to communicate that this is unlikely given her current presentaion in setting of progressive disease process. Prior Functional Status Baseline Function- ADL's Needs Assist Baseline Function- Mobility Needs Assist Baseline Function- Gait Currently, unable to walk d/t falling. Has been transferring and using w/c Baseline Function- Other Pt states she was walking with walker 3 weeks ago and when her legs collapsed and she fell. EMS had to help get her off of the floor. Current Functional Impairments (Reported) Functional Limitations- ADL's She reports mod I with showering while sitting on shower chair and use of rails as needed. Asst to tie her shoes. She performs ADL tasks sitting. Functional Limitations- Mobility/Gait Currently, unable to take a step without LEs buckling Personal Factors Other Personal Factors That May Effect Progressive disease, right Therapy/Recovery ankle fusion that pt states is failing and LLE flexion tone and spasming pain up to 9-10 /10 are barriers to PT. PT-OP-C Subjective Start: 04/07/19 12:57 Freq: Status: Active Protocol: Document 04/20/19 11:00 LJ (Rec: 04/20/19 16:33 LJ [id number]) OP-PT Subjective Patient Comments Patient Comments Pt arrived 10 minutes early with assisting her pushing w/c. Pt again attempted to get into lift chair by herself w/o assist from or guard. Stopped by therapist and assisted with transfer using gait belt. Her w/c brakes are not entirely secure. PT-OP-D Balance Start: 04/07/19 12:57 Freq: Status: Active Protocol: Document 04/07/19 14:10 MB (Rec: 04/07/19 14:45 MB [id number]) OP-PT Balance Assessment Sitting Balance Static Sitting Balance Ability Good Dynamic Sitting Balance Ability Good Sitting Balance Comments UE support for sitting balance and must hold onto plinth when bending down to reach for her shoe to put it on. Standing Balance Static Standing Balance Ability Poor Dynamic Standing Balance Ability Poor Standing Balance Comments Pt holds onto chair in front of her for static standing 10 sec. She presents with B leg fatigue/buckling and uses heavy UE support. Pt attempts to lift one foot and then the other but the single stance leg (both right and left when single stance) deanna, requiring her to sit. CGA. Balance Tests Other Other Balance Tests Performed Pt unable to tolerate sit to stand testing trial or other static standing tests d/t LE buckling. Morgan Fall Scale Copyright Permission PT-OP-G Mobility & Gait Start: 04/07/19 12:57 Freq: Status: Active Protocol: Document 04/12/19 12:01 MB (Rec: 04/12/19 12:13 MB [id number]) OP Mobility Evaluation Transfers Sit to Stand Cues to lock w/c and rollator with sit to stand trials from one to the another and back. Pt occ performs a SPT turn and occ performs transfer facing surface she is transferring to (NuStep or w/c), holding onto surface she is transferring to and then reaching around as she pivots or takes small steps to sit. Wheelchair Management Type of Wheelchair Standard w/c Assessment Details Pt holds one leg up with the other foot occ, pushes wheelchair with UEs OP Gait Assessment Gait Gait Assistance Required: Contact Guard Assist Assistive Devices Assistive Device Front Wheeled Walker,4 Wheeled Walker Gait Deviations General Gait Pattern Decreased Stride Length, Decreased Feet Clearance, Flexed Trunk,Narrow Based Gait ,Step-to Gait Factors Limiting Gait Function Factors Limiting Gait Function Abnormal Tonal Influences, Decreased Activity Tolerance, Decreased Strength,Limited Range of Motion,Pain Comments Gait Comments Gait trained 20'x4 and 40'x2; equally divided between use of her rollator and hospital 2WRW. Pt presents with increased knee flexion and buckling, greater on the right , right ankle fusion and little push off, improved left PF tone with WB, step-to gait , quick fatigue, occ c/o right calf discomfort. She has heavy use of UEs, flexed trunk . PT-OP-J Posture/Palpation/Skin Start: 04/07/19 12:57 Freq: Status: Active Protocol: Document 04/07/19 14:10 MB (Rec: 04/07/19 14:45 MB [id number]) Skin Assessment Edema Assessment Right Leg Comments Mild pitting edema B LEs proximal ankle to foot Left Leg Comments Mild pitting edema B LEs proximal ankle to foot PT-OP-K Range of Motion Start: 04/07/19 12:57 Freq: Status: Active Protocol: Document 04/07/19 14:10 MB (Rec: 04/07/19 14:45 MB [id number]) Hip Goniometric Range of Motion Hip ROM Limitations Comments LLE hip flexor contraction movements with attempted AROM left LE. Right hip flexion with ability to briefly lift her right LE off the plinth in supine. Knee Goniometric Range of Motion Knee ROM Limitations Comments Extensor lag with attempted SLR on the right leg. She has arthritic joint changes. LLE spasming with all attempted AROM. Ankle and Foot Goniometric Range of Motion Ankle and Foot ROM Limitations Comments B ankles with limited ROM. Unable to test LLE d/t increased proximal joints flexor tone with attempted passive and active movement of foot. 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 PT-OP-M Strength Start: 04/07/19 12:57 Freq: Status: Active Protocol: Document 04/07/19 14:10 MB (Rec: 04/07/19 14:45 MB [id number]) Hip Strength Hip Manual Muscle Testing Right Flexion (L2) 2+ Poor+ Abduction 2- Poor- Comments Testing in supine. Pt is unable to perform any MMT on LLE d/t flexion tone easily provoked. Knee Strength Knee Manual Muscle Testing Right Flexion (S2) 3- Fair- Extension (L3) 3- Fair- Comments Testing in supine. Unable to perform MMT on LLE d/t flexion tone easily provoked. PT-OP-Q Treatments Start: 04/12/19 12:13 Freq: Status: Active Protocol: Document 04/12/19 12:01 MB (Rec: 04/12/19 12:25 MB [id number]) Cardio Equipment Recumbent Stepper (Sci-Fit) Duration (Minutes) 10 Resistance 1.5 Gait Training Gait Activity 1 Description See Gait description from assessment of it today PT-OP-S Aquatic Treatment Start: 04/12/19 12:13 Freq: Status: Active Protocol: Document 04/20/19 11:00 LJ (Rec: 04/20/19 16:33 LJ [id number]) Aquatics Treatment Pool Entry/Exit Pool Entry/Exit Method Lift Assistance Moderate Assistance Comments pt unsteady and unable to control LEs for safe transfers w/o assist Water Walking Backwards Water Level Waist Level Walking Equipment Ankle Weight- 2.5# Level of Assistance Moderate Assistance Comments verbal and manual cues; blue float Sideways Water Level Chest Level Walking Equipment Ankle Weight- 2.5# Level of Assistance Moderate Assistance,Verbal Cues Comments blue float Forwards Water Level Chest Level Walking Equipment Ankle Weight- 2.5# Level of Assistance Moderate Assistance,Verbal Cues Comments posterior lean, RLE pronated; blue float Lower Extremity Exercises sit<>stand Details on table Water Level Chest Level Equipment lg mat Reps/Duration 10x Comments pt used lg mat for stabilization and spine extension weight shifting Details hand hold at wall Body Position Standing Water Level Chest Level Equipment Ankle Weight- 2.5# Reps/Duration 3 min hip extension Details in corner Body Position Standing Water Level Chest Level Equipment Ankle Weight- 2.5# Reps/Duration 10 bilat Comments verbal and manual cues with mod assist Lower Extremity Stretches HS Body Position Standing Water Level Chest Level Equipment Small Noodle Upper Extremity Exercises ab/ad, flex/ext Details braced at wall Body Position Standing Water Level Chest Level Equipment Ankle Weight- 2.5# Reps/Duration 10x Comments Raj for stabilization Spinal Exercises spinal extension Details spinal extension to correct forward lean Body Position Standing Water Level Chest Level Equipment Ankle Weight- 2.5# Reps/Duration 3 min Comments extend and hold position with handhold on wall Balance static standing balance Details braced in corner Body Position Standing Water Level Chest Level Reps/Duration 3 min Comments Pt req handhold and ModA-CGA for stability [place] Activities Equipment blue float, #2.5 wts Duration 15min Comments req Raj to CGA PT-OP-T Assessment and Plan Start: 04/07/19 12:57 Freq: Status: Active Protocol: Document 04/20/19 11:00 ETHAN (Rec: 04/20/19 16:33 ETHAN [id number]) Physical Therapy Assessment Rehab Potential Rehabilitation Potential Fair Evaluation Complexity Number of Personal Factors/Comorbidities 3 or More Number of Body Systems Impaired 1-2 Clinical Presentation at Evaluation Evolving Impairments Impairments Activity Tolerance,Balance, Coordination,Edema,Functional Activities,Functional Mobility ,Gait,Integument,Pain,Posture, ROM,Sensation,Soft Tissue Mobility,Strength,Tone, Transfers Other Impairments Decreased proprioception all left toes. R toes are intact. Decreased sensation to light touch all dermatomes LLE. Other Concerns Fall Risk High Barriers to Rehabilitation Multiple body systems affected including central ( progressive disease, MS; history of lumbar surgery, reports knee and foot changes (right ankle fusion) and knee for TKR) Goals Four Assisted Goal (LTG) Pt will gait train 25 feet with superv with RW by 06/07/19. 3 Assisted Goal (LTG) Pt will perform progressive HEP with I by 06/07/19. 2 Senior Core Java Developer Goal (LTG) Pt will perform 3 repeated reps of sit<->stand with mod I without LE buckling to reduce fall risk by 06/07/19. 1 Senior Core Java Developer Goal (LTG) Pt will maintain standing balance with mod I and use of LRAD for at least 30 sec to decrease fall risk and prepare for gait by 06/07/19. Assessment Summary Assessment Pt again arriving early but there this time. Restated to pt that she needs assist from therapist to transfer to lift chair. Pt wheelchair brakes slip and are a safety issue. Pt very unstable in shallow water and has difficulty correcting posterior lean. Tloerated exercises well with CGA to ModA throughout session. Physical Therapy Plan Frequency and Duration Frequency of Treatment 2x/Week Duration of Treatment 8 weeks Plan of Care Start Date 04/07/19 Plan of Care End Date 06/07/19 Therapeutic Interventions Therapeutic Interventions Aquatic Therapy,Balance Training,Coordination Training ,Gait Training,Home Exercise Program,Manual Therapy, Neuromuscular Re-education, Patient/Caregiver Education, Self-Care/Home Management, Taping,Therapeutic Activities, Therapeutic Exercises, Wheelchair Management Modalities Cold Pack/Ice Massage,Electric Stimulation,Ultrasound Next Visit Focus/Plan Next Note Type Treatment Note Next Visit Plan Continue with land and aquatic therapy with emphasis on strengthening, balance, transfers, and gait training. Attempt ambulation in shallow water with lg mat to correct posterior lean.
--- NOTE | 2019-04-21 11:15 | PT.OTN ---
Current Diagnoses Multiple sclerosis (04/21/19) Weakness (04/21/19) Physical Therapy Treatment Note PT-OP-A Visit Information Start: 04/07/19 12:57 Freq: Status: Active Protocol: Document 04/21/19 10:30 MB (Rec: 04/21/19 11:13 MB [id number]) Out-Patient Physical Therapy Visit Information Visit Information Visit Type Treatment Note Visit Start Time 10:30 Visit Stop Time 11:14 Total Visit Minutes 44 Visit Number 5/10 Number of ATHLETE MARKETING AGENT Visits 2 PT-OP-B Current Condition Start: 04/07/19 12:57 Freq: Status: Active Protocol: Document 04/07/19 12:14 MB (Rec: 04/07/19 14:06 MB [id number]) Current Condition History of Current Condition Onset Date Progressive Current Complaints Pt reports gradual inability to walk and increasing buckling of her legs History of Current Condition Hx progressive MS, right ankle fusion and back surgery. Progressive trouble with walking Prior Treatments and Tests Spine and right ankle sxs, PT, pt states she just started a medication for LE spasming, cannot state what medication Treatment Goals Patient/Caregiver Goals To walk with walker. Her goal is to be able to walk outside. She first states that she would like to get back to walking a mile daily but she then appears to communicate that this is unlikely given her current presentaion in setting of progressive disease process. Prior Functional Status Baseline Function- ADL's Needs Assist Baseline Function- Mobility Needs Assist Baseline Function- Gait Currently, unable to walk d/t falling. Has been transferring and using w/c Baseline Function- Other Pt states she was walking with walker 3 weeks ago and when her legs collapsed and she fell. EMS had to help get her off of the floor. Current Functional Impairments (Reported) Functional Limitations- ADL's She reports mod I with showering while sitting on shower chair and use of rails as needed. Asst to tie her shoes. She performs ADL tasks sitting. Functional Limitations- Mobility/Gait Currently, unable to take a step without LEs buckling Personal Factors Other Personal Factors That May Effect Progressive disease, right Therapy/Recovery ankle fusion that pt states is failing and LLE flexion tone and spasming pain up to 9-10 /10 are barriers to PT. PT-OP-C Subjective Start: 04/07/19 12:57 Freq: Status: Active Protocol: Document 04/21/19 10:30 MB (Rec: 04/21/19 11:13 MB [id number]) OP-PT Subjective Patient Comments Patient Comments Pt states that she got in the pool yesterday and she couldn' t get her feet down. The therapist used weights to keep her feet down. Her left leg doesn't want to work today. Pt and report concern about appointments being back to back (aquatic one day and land the next). PT-OP-D Balance Start: 04/07/19 12:57 Freq: Status: Active Protocol: Document 04/07/19 14:10 MB (Rec: 04/07/19 14:45 MB [id number]) OP-PT Balance Assessment Sitting Balance Static Sitting Balance Ability Good Dynamic Sitting Balance Ability Good Sitting Balance Comments UE support for sitting balance and must hold onto plinth when bending down to reach for her shoe to put it on. Standing Balance Static Standing Balance Ability Poor Dynamic Standing Balance Ability Poor Standing Balance Comments Pt holds onto chair in front of her for static standing 10 sec. She presents with B leg fatigue/buckling and uses heavy UE support. Pt attempts to lift one foot and then the other but the single stance leg (both right and left when single stance) deanna, requiring her to sit. CGA. Balance Tests Other Other Balance Tests Performed Pt unable to tolerate sit to stand testing trial or other static standing tests d/t LE buckling. Morgan Fall Scale Copyright Permission PT-OP-G Mobility & Gait Start: 04/07/19 12:57 Freq: Status: Active Protocol: Document 04/12/19 12:01 MB (Rec: 04/12/19 12:13 MB [id number]) OP Mobility Evaluation Transfers Sit to Stand Cues to lock w/c and rollator with sit to stand trials from one to the another and back. Pt occ performs a SPT turn and occ performs transfer facing surface she is transferring to (NuStep or w/c), holding onto surface she is transferring to and then reaching around as she pivots or takes small steps to sit. Wheelchair Management Type of Wheelchair Standard w/c Assessment Details Pt holds one leg up with the other foot occ, pushes wheelchair with UEs OP Gait Assessment Gait Gait Assistance Required: Contact Guard Assist Assistive Devices Assistive Device Front Wheeled Walker,4 Wheeled Walker Gait Deviations General Gait Pattern Decreased Stride Length, Decreased Feet Clearance, Flexed Trunk,Narrow Based Gait ,Step-to Gait Factors Limiting Gait Function Factors Limiting Gait Function Abnormal Tonal Influences, Decreased Activity Tolerance, Decreased Strength,Limited Range of Motion,Pain Comments Gait Comments Gait trained 20'x4 and 40'x2; equally divided between use of her rollator and hospital 2WRW. Pt presents with increased knee flexion and buckling, greater on the right , right ankle fusion and little push off, improved left PF tone with WB, step-to gait , quick fatigue, occ c/o right calf discomfort. She has heavy use of UEs, flexed trunk . PT-OP-J Posture/Palpation/Skin Start: 04/07/19 12:57 Freq: Status: Active Protocol: Document 04/07/19 14:10 MB (Rec: 04/07/19 14:45 MB [id number]) Skin Assessment Edema Assessment Right Leg Comments Mild pitting edema B LEs proximal ankle to foot Left Leg Comments Mild pitting edema B LEs proximal ankle to foot PT-OP-K Range of Motion Start: 04/07/19 12:57 Freq: Status: Active Protocol: Document 04/07/19 14:10 MB (Rec: 04/07/19 14:45 MB [id number]) Hip Goniometric Range of Motion Hip ROM Limitations Comments LLE hip flexor contraction movements with attempted AROM left LE. Right hip flexion with ability to briefly lift her right LE off the plinth in supine. Knee Goniometric Range of Motion Knee ROM Limitations Comments Extensor lag with attempted SLR on the right leg. She has arthritic joint changes. LLE spasming with all attempted AROM. Ankle and Foot Goniometric Range of Motion Ankle and Foot ROM Limitations Comments B ankles with limited ROM. Unable to test LLE d/t increased proximal joints flexor tone with attempted passive and active movement of foot. 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 PT-OP-M Strength Start: 04/07/19 12:57 Freq: Status: Active Protocol: Document 04/07/19 14:10 MB (Rec: 04/07/19 14:45 MB [id number]) Hip Strength Hip Manual Muscle Testing Right Flexion (L2) 2+ Poor+ Abduction 2- Poor- Comments Testing in supine. Pt is unable to perform any MMT on LLE d/t flexion tone easily provoked. Knee Strength Knee Manual Muscle Testing Right Flexion (S2) 3- Fair- Extension (L3) 3- Fair- Comments Testing in supine. Unable to perform MMT on LLE d/t flexion tone easily provoked. PT-OP-Q Treatments Start: 04/12/19 12:13 Freq: Status: Active Protocol: Document 04/21/19 10:30 MB (Rec: 04/21/19 11:13 MB [id number]) Cardio Equipment Recumbent Stepper (Sci-Fit) Duration (Minutes) 15 Resistance 2-2.5 Other Pt requires asst to get feet up today Therapeutic Exercises Sitting Exercises Weight shift and mini squat, cleaning hips Sitting Exercise Name First, weight shift forward, picking up cones Comments Mini squats, hands on arm rests, 10 reps, pt able to clear hips, 2 sets. PT-OP-S Aquatic Treatment Start: 04/12/19 12:13 Freq: Status: Active Protocol: Document 04/20/19 11:00 LJ (Rec: 04/20/19 16:33 LJ [id number]) Aquatics Treatment Pool Entry/Exit Pool Entry/Exit Method Lift Assistance Moderate Assistance Comments pt unsteady and unable to control LEs for safe transfers w/o assist Water Walking Backwards Water Level Waist Level Walking Equipment Ankle Weight- 2.5# Level of Assistance Moderate Assistance Comments verbal and manual cues; blue float Sideways Water Level Chest Level Walking Equipment Ankle Weight- 2.5# Level of Assistance Moderate Assistance,Verbal Cues Comments blue float Forwards Water Level Chest Level Walking Equipment Ankle Weight- 2.5# Level of Assistance Moderate Assistance,Verbal Cues Comments posterior lean, RLE pronated; blue float Lower Extremity Exercises sit<>stand Details on table Water Level Chest Level Equipment lg mat Reps/Duration 10x Comments pt used lg mat for stabilization and spine extension weight shifting Details hand hold at wall Body Position Standing Water Level Chest Level Equipment Ankle Weight- 2.5# Reps/Duration 3 min hip extension Details in corner Body Position Standing Water Level Chest Level Equipment Ankle Weight- 2.5# Reps/Duration 10 bilat Comments verbal and manual cues with mod assist Lower Extremity Stretches HS Body Position Standing Water Level Chest Level Equipment Small Noodle Upper Extremity Exercises ab/ad, flex/ext Details braced at wall Body Position Standing Water Level Chest Level Equipment Ankle Weight- 2.5# Reps/Duration 10x Comments Raj for stabilization Spinal Exercises spinal extension Details spinal extension to correct forward lean Body Position Standing Water Level Chest Level Equipment Ankle Weight- 2.5# Reps/Duration 3 min Comments extend and hold position with handhold on wall Balance static standing balance Details braced in corner Body Position Standing Water Level Chest Level Reps/Duration 3 min Comments Pt req handhold and ModA-CGA for stability [place] Activities Equipment blue float, #2.5 wts Duration 15min Comments req Raj to CGA PT-OP-T Assessment and Plan Start: 04/07/19 12:57 Freq: Status: Active Protocol: Document 04/21/19 10:30 MB (Rec: 04/21/19 11:13 MB [id number]) Physical Therapy Assessment Assessment Summary Assessment Pt presents with increased B leg weakness today, and transfer from w/c to SciFit is difficult, requiring cues and min A. Pt is able to transfer better to the left after mini sit to stands. Working on SPT without turning around to get to chair. Physical Therapy Plan Frequency and Duration Frequency of Treatment 2x/Week Duration of Treatment 8 weeks Plan of Care Start Date 04/07/19 Plan of Care End Date 06/07/19 Therapeutic Interventions Therapeutic Interventions Aquatic Therapy,Balance Training,Coordination Training ,Gait Training,Home Exercise Program,Manual Therapy, Neuromuscular Re-education, Patient/Caregiver Education, Self-Care/Home Management, Taping,Therapeutic Activities, Therapeutic Exercises, Wheelchair Management Modalities Cold Pack/Ice Massage,Electric Stimulation,Ultrasound Next Visit Focus/Plan Next Note Type Treatment Note Next Visit Plan Con't strengthening, balance, transfers, and gait training.
--- NOTE | 2019-04-27 15:47 | PT.OTN ---
Current Diagnoses Multiple sclerosis (04/27/19) Weakness (04/27/19) Physical Therapy Treatment Note PT-OP-A Visit Information Start: 04/07/19 12:57 Freq: Status: Active Protocol: Document 04/27/19 11:00 LJ (Rec: 04/27/19 14:29 LJ [id number]) Out-Patient Physical Therapy Visit Information Visit Information Visit Type Aquatic Treatment Note Visit Start Time 11:00 Visit Stop Time 11:45 Total Visit Minutes 45 Visit Number 6/10 Number of ENGRAVING PLATE MAKER Visits 3 PT-OP-B Current Condition Start: 04/07/19 12:57 Freq: Status: Active Protocol: Document 04/07/19 12:14 MB (Rec: 04/07/19 14:06 MB [id number]) Current Condition History of Current Condition Onset Date Progressive Current Complaints Pt reports gradual inability to walk and increasing buckling of her legs History of Current Condition Hx progressive MS, right ankle fusion and back surgery. Progressive trouble with walking Prior Treatments and Tests Spine and right ankle sxs, PT, pt states she just started a medication for LE spasming, cannot state what medication Treatment Goals Patient/Caregiver Goals To walk with walker. Her goal is to be able to walk outside. She first states that she would like to get back to walking a mile daily but she then appears to communicate that this is unlikely given her current presentaion in setting of progressive disease process. Prior Functional Status Baseline Function- ADL's Needs Assist Baseline Function- Mobility Needs Assist Baseline Function- Gait Currently, unable to walk d/t falling. Has been transferring and using w/c Baseline Function- Other Pt states she was walking with walker 3 weeks ago and when her legs collapsed and she fell. EMS had to help get her off of the floor. Current Functional Impairments (Reported) Functional Limitations- ADL's She reports mod I with showering while sitting on shower chair and use of rails as needed. Asst to tie her shoes. She performs ADL tasks sitting. Functional Limitations- Mobility/Gait Currently, unable to take a step without LEs buckling Personal Factors Other Personal Factors That May Effect Progressive disease, right Therapy/Recovery ankle fusion that pt states is failing and LLE flexion tone and spasming pain up to 9-10 /10 are barriers to PT. PT-OP-C Subjective Start: 04/07/19 12:57 Freq: Status: Active Protocol: Document 04/27/19 11:00 LJ (Rec: 04/27/19 14:29 LJ [id number]) OP-PT Subjective Patient Comments Patient Comments Pt states she is having trouble making her legs work today. She arrived 10 min early to appointment and began transfering from to lift. advertising assistant manager watched as assisted . Pt was told she needs to wait for therapist to assist her into lift chair. PT-OP-D Balance Start: 04/07/19 12:57 Freq: Status: Active Protocol: Document 04/07/19 14:10 MB (Rec: 04/07/19 14:45 MB [id number]) OP-PT Balance Assessment Sitting Balance Static Sitting Balance Ability Good Dynamic Sitting Balance Ability Good Sitting Balance Comments UE support for sitting balance and must hold onto plinth when bending down to reach for her shoe to put it on. Standing Balance Static Standing Balance Ability Poor Dynamic Standing Balance Ability Poor Standing Balance Comments Pt holds onto chair in front of her for static standing 10 sec. She presents with B leg fatigue/buckling and uses heavy UE support. Pt attempts to lift one foot and then the other but the single stance leg (both right and left when single stance) deanna, requiring her to sit. CGA. Balance Tests Other Other Balance Tests Performed Pt unable to tolerate sit to stand testing trial or other static standing tests d/t LE buckling. Morgan Fall Scale Copyright Permission PT-OP-G Mobility & Gait Start: 04/07/19 12:57 Freq: Status: Active Protocol: Document 04/12/19 12:01 MB (Rec: 04/12/19 12:13 MB [id number]) OP Mobility Evaluation Transfers Sit to Stand Cues to lock w/c and rollator with sit to stand trials from one to the another and back. Pt occ performs a SPT turn and occ performs transfer facing surface she is transferring to (NuStep or w/c), holding onto surface she is transferring to and then reaching around as she pivots or takes small steps to sit. Wheelchair Management Type of Wheelchair Standard w/c Assessment Details Pt holds one leg up with the other foot occ, pushes wheelchair with UEs OP Gait Assessment Gait Gait Assistance Required: Contact Guard Assist Assistive Devices Assistive Device Front Wheeled Walker,4 Wheeled Walker Gait Deviations General Gait Pattern Decreased Stride Length, Decreased Feet Clearance, Flexed Trunk,Narrow Based Gait ,Step-to Gait Factors Limiting Gait Function Factors Limiting Gait Function Abnormal Tonal Influences, Decreased Activity Tolerance, Decreased Strength,Limited Range of Motion,Pain Comments Gait Comments Gait trained 20'x4 and 40'x2; equally divided between use of her rollator and hospital 2WRW. Pt presents with increased knee flexion and buckling, greater on the right , right ankle fusion and little push off, improved left PF tone with WB, step-to gait , quick fatigue, occ c/o right calf discomfort. She has heavy use of UEs, flexed trunk . PT-OP-J Posture/Palpation/Skin Start: 04/07/19 12:57 Freq: Status: Active Protocol: Document 04/07/19 14:10 MB (Rec: 04/07/19 14:45 MB [id number]) Skin Assessment Edema Assessment Right Leg Comments Mild pitting edema B LEs proximal ankle to foot Left Leg Comments Mild pitting edema B LEs proximal ankle to foot PT-OP-K Range of Motion Start: 04/07/19 12:57 Freq: Status: Active Protocol: Document 04/07/19 14:10 MB (Rec: 04/07/19 14:45 MB [id number]) Hip Goniometric Range of Motion Hip ROM Limitations Comments LLE hip flexor contraction movements with attempted AROM left LE. Right hip flexion with ability to briefly lift her right LE off the plinth in supine. Knee Goniometric Range of Motion Knee ROM Limitations Comments Extensor lag with attempted SLR on the right leg. She has arthritic joint changes. LLE spasming with all attempted AROM. Ankle and Foot Goniometric Range of Motion Ankle and Foot ROM Limitations Comments B ankles with limited ROM. Unable to test LLE d/t increased proximal joints flexor tone with attempted passive and active movement of foot. 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 PT-OP-M Strength Start: 04/07/19 12:57 Freq: Status: Active Protocol: Document 04/07/19 14:10 MB (Rec: 04/07/19 14:45 MB [id number]) Hip Strength Hip Manual Muscle Testing Right Flexion (L2) 2+ Poor+ Abduction 2- Poor- Comments Testing in supine. Pt is unable to perform any MMT on LLE d/t flexion tone easily provoked. Knee Strength Knee Manual Muscle Testing Right Flexion (S2) 3- Fair- Extension (L3) 3- Fair- Comments Testing in supine. Unable to perform MMT on LLE d/t flexion tone easily provoked. PT-OP-Q Treatments Start: 04/12/19 12:13 Freq: Status: Active Protocol: Document 04/21/19 10:30 MB (Rec: 04/21/19 11:13 MB [id number]) Cardio Equipment Recumbent Stepper (Sci-Fit) Duration (Minutes) 15 Resistance 2-2.5 Other Pt requires asst to get feet up today Therapeutic Exercises Sitting Exercises Weight shift and mini squat, cleaning hips Sitting Exercise Name First, weight shift forward, picking up cones Comments Mini squats, hands on arm rests, 10 reps, pt able to clear hips, 2 sets. PT-OP-S Aquatic Treatment Start: 04/12/19 12:13 Freq: Status: Active Protocol: Document 04/27/19 11:00 LJ (Rec: 04/27/19 14:29 LJ [id number]) Aquatics Treatment Pool Entry/Exit Pool Entry/Exit Method Lift Assistance Moderate Assistance Comments pt unsteady and unable to control LEs for safe transfers w/o assist Water Walking forward with FWW Water Level Chest Level Walking Equipment FWW, ankle wts Level of Assistance Contact Guard Assistance, Minimal Assistance,Verbal Cues Comments pt walking 120 meters Sideways Water Level Chest Level Walking Equipment Ankle Weight- 2.5# Level of Assistance Moderate Assistance,Verbal Cues Comments blue float Forwards Water Level Chest Level Walking Equipment Ankle Weight- 2.5# Level of Assistance Moderate Assistance,Verbal Cues Comments posterior lean, RLE pronated; blue float Lower Extremity Exercises sit<>stand Details on table Water Level Chest Level Comments lg box for hand to push off, FWW, pool edge Spinal Exercises spinal extension Details spinal extension to correct forward lean Body Position Standing Water Level Chest Level Equipment Ankle Weight- 2.5# Reps/Duration 3 min Comments extend and hold position with handhold on wall Balance static standing balance Details braced in corner Body Position Standing Water Level Chest Level Reps/Duration 3 min Comments Pt req handhold and ModA-CGA for stability Other sit<>stand transitioning to gait Equipment Box, table, FWW Reps/Duration 18 min Comments pt standing from table with handhold on FWW pushing off lg box stabilizing PT-OP-T Assessment and Plan Start: 04/07/19 12:57 Freq: Status: Active Protocol: Document 04/27/19 11:00 ETHAN (Rec: 04/27/19 15:46 ETHAN [id number]) Physical Therapy Assessment Rehab Potential Rehabilitation Potential Fair Evaluation Complexity Number of Personal Factors/Comorbidities 3 or More Number of Body Systems Impaired 1-2 Clinical Presentation at Evaluation Evolving Impairments Impairments Activity Tolerance,Balance, Coordination,Edema,Functional Activities,Functional Mobility ,Gait,Integument,Pain,Posture, ROM,Sensation,Soft Tissue Mobility,Strength,Tone, Transfers Other Impairments Decreased proprioception all left toes. R toes are intact. Decreased sensation to light touch all dermatomes LLE. Other Concerns Fall Risk High Barriers to Rehabilitation Multiple body systems affected including central ( progressive disease, MS; history of lumbar surgery, reports knee and foot changes (right ankle fusion) and knee for TKR) Goals Four Half-Way Goal (LTG) Pt will gait train 25 feet with superv with RW by 06/07/19. 3 Half-Way Goal (LTG) Pt will perform progressive HEP with I by 06/07/19. 2 Half-Way Goal (LTG) Pt will perform 3 repeated reps of sit<->stand with mod I without LE buckling to reduce fall risk by 06/07/19. 1 Half-Way Goal (LTG) Pt will maintain standing balance with mod I and use of LRAD for at least 30 sec to decrease fall risk and prepare for gait by 06/07/19. Assessment Summary Assessment Pt presents with increased B leg weakness today, and transfer from w/c to SciFit is difficult, requiring cues and min A. Pt is able to transfer better to the left after mini sit to stands. Working on SPT without turning around to get to chair. Physical Therapy Plan Frequency and Duration Frequency of Treatment 2x/Week Duration of Treatment 8 weeks Plan of Care Start Date 04/07/19 Plan of Care End Date 06/07/19 Therapeutic Interventions Therapeutic Interventions Aquatic Therapy,Balance Training,Coordination Training ,Gait Training,Home Exercise Program,Manual Therapy, Neuromuscular Re-education, Patient/Caregiver Education, Self-Care/Home Management, Taping,Therapeutic Activities, Therapeutic Exercises, Wheelchair Management Modalities Cold Pack/Ice Massage,Electric Stimulation,Ultrasound Next Visit Focus/Plan Next Note Type Treatment Note Next Visit Plan Con't strengthening, balance, transfers, and gait training.
--- NOTE | 2019-04-29 14:11 | PT.OTN ---
Current Diagnoses Multiple sclerosis (04/29/19) Weakness (04/29/19) Physical Therapy Treatment Note PT-OP-A Visit Information Start: 04/07/19 12:57 Freq: Status: Active Protocol: Document 04/29/19 13:51 SP (Rec: 04/29/19 14:02 SP [id number]) Out-Patient Physical Therapy Visit Information Visit Information Visit Type Treatment Note Visit Start Time 13:08 Visit Stop Time 13:48 Total Visit Minutes 40 Visit Number 7/10 Number of DEVELOPMENTAL EDUCATION INSTRUCTOR Visits 4 PT-OP-B Current Condition Start: 04/07/19 12:57 Freq: Status: Active Protocol: Document 04/07/19 12:14 MB (Rec: 04/07/19 14:06 MB [id number]) Current Condition History of Current Condition Onset Date Progressive Current Complaints Pt reports gradual inability to walk and increasing buckling of her legs History of Current Condition Hx progressive MS, right ankle fusion and back surgery. Progressive trouble with walking Prior Treatments and Tests Spine and right ankle sxs, PT, pt states she just started a medication for LE spasming, cannot state what medication Treatment Goals Patient/Caregiver Goals To walk with walker. Her goal is to be able to walk outside. She first states that she would like to get back to walking a mile daily but she then appears to communicate that this is unlikely given her current presentaion in setting of progressive disease process. Prior Functional Status Baseline Function- ADL's Needs Assist Baseline Function- Mobility Needs Assist Baseline Function- Gait Currently, unable to walk d/t falling. Has been transferring and using w/c Baseline Function- Other Pt states she was walking with walker 3 weeks ago and when her legs collapsed and she fell. EMS had to help get her off of the floor. Current Functional Impairments (Reported) Functional Limitations- ADL's She reports mod I with showering while sitting on shower chair and use of rails as needed. Asst to tie her shoes. She performs ADL tasks sitting. Functional Limitations- Mobility/Gait Currently, unable to take a step without LEs buckling Personal Factors Other Personal Factors That May Effect Progressive disease, right Therapy/Recovery ankle fusion that pt states is failing and LLE flexion tone and spasming pain up to 9-10 /10 are barriers to PT. PT-OP-C Subjective Start: 04/07/19 12:57 Freq: Status: Active Protocol: Document 04/29/19 13:48 SP (Rec: 04/29/19 14:09 SP [email or web address]) OP-PT Subjective Patient Comments Patient Comments Pt states her LLE is not holding her up as well today, using her w/c more often, afraid might fall if try and use 4WW. No pain pre PT, took her advil this am. PT-OP-D Balance Start: 04/07/19 12:57 Freq: Status: Active Protocol: Document 04/07/19 14:10 MB (Rec: 04/07/19 14:45 MB [id number]) OP-PT Balance Assessment Sitting Balance Static Sitting Balance Ability Good Dynamic Sitting Balance Ability Good Sitting Balance Comments UE support for sitting balance and must hold onto plinth when bending down to reach for her shoe to put it on. Standing Balance Static Standing Balance Ability Poor Dynamic Standing Balance Ability Poor Standing Balance Comments Pt holds onto chair in front of her for static standing 10 sec. She presents with B leg fatigue/buckling and uses heavy UE support. Pt attempts to lift one foot and then the other but the single stance leg (both right and left when single stance) deanna, requiring her to sit. CGA. Balance Tests Other Other Balance Tests Performed Pt unable to tolerate sit to stand testing trial or other static standing tests d/t LE buckling. Morgan Fall Scale Copyright Permission PT-OP-G Mobility & Gait Start: 04/07/19 12:57 Freq: Status: Active Protocol: Document 04/12/19 12:01 MB (Rec: 04/12/19 12:13 MB [id number]) OP Mobility Evaluation Transfers Sit to Stand Cues to lock w/c and rollator with sit to stand trials from one to the another and back. Pt occ performs a SPT turn and occ performs transfer facing surface she is transferring to (NuStep or w/c), holding onto surface she is transferring to and then reaching around as she pivots or takes small steps to sit. Wheelchair Management Type of Wheelchair Standard w/c Assessment Details Pt holds one leg up with the other foot occ, pushes wheelchair with UEs OP Gait Assessment Gait Gait Assistance Required: Contact Guard Assist Assistive Devices Assistive Device Front Wheeled Walker,4 Wheeled Walker Gait Deviations General Gait Pattern Decreased Stride Length, Decreased Feet Clearance, Flexed Trunk,Narrow Based Gait ,Step-to Gait Factors Limiting Gait Function Factors Limiting Gait Function Abnormal Tonal Influences, Decreased Activity Tolerance, Decreased Strength,Limited Range of Motion,Pain Comments Gait Comments Gait trained 20'x4 and 40'x2; equally divided between use of her rollator and hospital 2WRW. Pt presents with increased knee flexion and buckling, greater on the right , right ankle fusion and little push off, improved left PF tone with WB, step-to gait , quick fatigue, occ c/o right calf discomfort. She has heavy use of UEs, flexed trunk . PT-OP-J Posture/Palpation/Skin Start: 04/07/19 12:57 Freq: Status: Active Protocol: Document 04/07/19 14:10 MB (Rec: 04/07/19 14:45 MB [id number]) Skin Assessment Edema Assessment Right Leg Comments Mild pitting edema B LEs proximal ankle to foot Left Leg Comments Mild pitting edema B LEs proximal ankle to foot PT-OP-K Range of Motion Start: 04/07/19 12:57 Freq: Status: Active Protocol: Document 04/07/19 14:10 MB (Rec: 04/07/19 14:45 MB [id number]) Hip Goniometric Range of Motion Hip ROM Limitations Comments LLE hip flexor contraction movements with attempted AROM left LE. Right hip flexion with ability to briefly lift her right LE off the plinth in supine. Knee Goniometric Range of Motion Knee ROM Limitations Comments Extensor lag with attempted SLR on the right leg. She has arthritic joint changes. LLE spasming with all attempted AROM. Ankle and Foot Goniometric Range of Motion Ankle and Foot ROM Limitations Comments B ankles with limited ROM. Unable to test LLE d/t increased proximal joints flexor tone with attempted passive and active movement of foot. 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 PT-OP-M Strength Start: 04/07/19 12:57 Freq: Status: Active Protocol: Document 04/07/19 14:10 MB (Rec: 04/07/19 14:45 MB [id number]) Hip Strength Hip Manual Muscle Testing Right Flexion (L2) 2+ Poor+ Abduction 2- Poor- Comments Testing in supine. Pt is unable to perform any MMT on LLE d/t flexion tone easily provoked. Knee Strength Knee Manual Muscle Testing Right Flexion (S2) 3- Fair- Extension (L3) 3- Fair- Comments Testing in supine. Unable to perform MMT on LLE d/t flexion tone easily provoked. PT-OP-Q Treatments Start: 04/12/19 12:13 Freq: Status: Active Protocol: Document 04/29/19 13:51 SP (Rec: 04/29/19 14:02 SP [email or web address]) Cardio Equipment Recumbent Stepper (Sci-Fit) Duration (Minutes) 10 Resistance 2-2.5 Other Pt requires asst to get feet up today Therapeutic Exercises Sitting Exercises seated march Reps/Minutes 2x5 Comments warm up pre gait LAQ Side bilateral Resistance AROM Reps/Minutes 3x10 Comments warm up pre gait Standing Exercises pre gait wt shifting Standing Exercise Name step taps forward/backward Side bilateral Equipment Used //bar Reps/Minutes 3x5 Comments cued for LLE knee extension Gait Training Gait Activity 1 Description foward gait Device Used //bar, Level of Assistance CGA Surface level Distance/Duration 10 ft //bar, 15 ft x2 4ww Treatment Focus knee extension for gait in home endurance Comments occasional cues for LLE knee extension PT-OP-S Aquatic Treatment Start: 04/12/19 12:13 Freq: Status: Active Protocol: Document 04/27/19 11:00 LJ (Rec: 04/27/19 14:29 LJ [id number]) Aquatics Treatment Pool Entry/Exit Pool Entry/Exit Method Lift Assistance Moderate Assistance Comments pt unsteady and unable to control LEs for safe transfers w/o assist Water Walking forward with FWW Water Level Chest Level Walking Equipment FWW, ankle wts Level of Assistance Contact Guard Assistance, Minimal Assistance,Verbal Cues Comments pt walking 120 meters Sideways Water Level Chest Level Walking Equipment Ankle Weight- 2.5# Level of Assistance Moderate Assistance,Verbal Cues Comments blue float Forwards Water Level Chest Level Walking Equipment Ankle Weight- 2.5# Level of Assistance Moderate Assistance,Verbal Cues Comments posterior lean, RLE pronated; blue float Lower Extremity Exercises sit<>stand Details on table Water Level Chest Level Comments lg box for hand to push off, FWW, pool edge Spinal Exercises spinal extension Details spinal extension to correct forward lean Body Position Standing Water Level Chest Level Equipment Ankle Weight- 2.5# Reps/Duration 3 min Comments extend and hold position with handhold on wall Balance static standing balance Details braced in corner Body Position Standing Water Level Chest Level Reps/Duration 3 min Comments Pt req handhold and ModA-CGA for stability Other sit<>stand transitioning to gait Equipment Box, table, FWW Reps/Duration 18 min Comments pt standing from table with handhold on FWW pushing off lg box stabilizing PT-OP-T Assessment and Plan Start: 04/07/19 12:57 Freq: Status: Active Protocol: Document 04/29/19 13:51 SP (Rec: 04/29/19 14:02 SP [email or web address]) Physical Therapy Assessment Rehab Potential Rehabilitation Potential Fair Assessment Summary Assessment Pt presents with L>R LE weakness today, transfer w/c<> SciFit LLE difficult to WB with knee extension. Pt was able to ambulate short distances 15 ft before L knee tires. DEVELOPMENTAL EDUCATION INSTRUCTOR cues for safety with proper hand placement. DEVELOPMENTAL EDUCATION INSTRUCTOR also discussed with about tightening w/c brakes, noted still moves, safety concern with transfers and BUE excessive WB. Physical Therapy Plan Therapeutic Interventions Therapeutic Interventions Aquatic Therapy,Balance Training,Coordination Training ,Gait Training,Home Exercise Program,Manual Therapy, Neuromuscular Re-education, Patient/Caregiver Education, Self-Care/Home Management, Taping,Therapeutic Activities, Therapeutic Exercises, Wheelchair Management Modalities Cold Pack/Ice Massage,Electric Stimulation,Ultrasound Next Visit Focus/Plan Next Note Type Treatment Note Next Visit Plan Con't strengthening, balance, transfers, and gait training.
--- NOTE | 2019-05-02 16:37 | PT.OTN ---
Current Diagnoses Multiple sclerosis (05/02/19) Weakness (05/02/19) Physical Therapy Treatment Note PT-OP-A Visit Information Start: 04/07/19 12:57 Freq: Status: Active Protocol: Document 05/02/19 12:30 LJ (Rec: 05/02/19 16:37 LJ [id number]) Out-Patient Physical Therapy Visit Information Visit Information Visit Type Aquatic Treatment Note Visit Start Time 12:30 Visit Stop Time 13:15 Total Visit Minutes 45 Visit Number 8/10 Number of TELEMETRY TECH Visits 5 PT-OP-B Current Condition Start: 04/07/19 12:57 Freq: Status: Active Protocol: Document 04/07/19 12:14 MB (Rec: 04/07/19 14:06 MB [id number]) Current Condition History of Current Condition Onset Date Progressive Current Complaints Pt reports gradual inability to walk and increasing buckling of her legs History of Current Condition Hx progressive MS, right ankle fusion and back surgery. Progressive trouble with walking Prior Treatments and Tests Spine and right ankle sxs, PT, pt states she just started a medication for LE spasming, cannot state what medication Treatment Goals Patient/Caregiver Goals To walk with walker. Her goal is to be able to walk outside. She first states that she would like to get back to walking a mile daily but she then appears to communicate that this is unlikely given her current presentaion in setting of progressive disease process. Prior Functional Status Baseline Function- ADL's Needs Assist Baseline Function- Mobility Needs Assist Baseline Function- Gait Currently, unable to walk d/t falling. Has been transferring and using w/c Baseline Function- Other Pt states she was walking with walker 3 weeks ago and when her legs collapsed and she fell. EMS had to help get her off of the floor. Current Functional Impairments (Reported) Functional Limitations- ADL's She reports mod I with showering while sitting on shower chair and use of rails as needed. Asst to tie her shoes. She performs ADL tasks sitting. Functional Limitations- Mobility/Gait Currently, unable to take a step without LEs buckling Personal Factors Other Personal Factors That May Effect Progressive disease, right Therapy/Recovery ankle fusion that pt states is failing and LLE flexion tone and spasming pain up to 9-10 /10 are barriers to PT. PT-OP-C Subjective Start: 04/07/19 12:57 Freq: Status: Active Protocol: Document 05/02/19 12:30 LJ (Rec: 05/02/19 16:37 LJ [id number]) OP-PT Subjective Patient Comments Patient Comments Pt staes she is having difficulty getting her LEs to hold her up. Having difficulties with transfers. PT-OP-D Balance Start: 04/07/19 12:57 Freq: Status: Active Protocol: Document 04/07/19 14:10 MB (Rec: 04/07/19 14:45 MB [id number]) OP-PT Balance Assessment Sitting Balance Static Sitting Balance Ability Good Dynamic Sitting Balance Ability Good Sitting Balance Comments UE support for sitting balance and must hold onto plinth when bending down to reach for her shoe to put it on. Standing Balance Static Standing Balance Ability Poor Dynamic Standing Balance Ability Poor Standing Balance Comments Pt holds onto chair in front of her for static standing 10 sec. She presents with B leg fatigue/buckling and uses heavy UE support. Pt attempts to lift one foot and then the other but the single stance leg (both right and left when single stance) deanna, requiring her to sit. CGA. Balance Tests Other Other Balance Tests Performed Pt unable to tolerate sit to stand testing trial or other static standing tests d/t LE buckling. Morgan Fall Scale Copyright Permission PT-OP-G Mobility & Gait Start: 04/07/19 12:57 Freq: Status: Active Protocol: Document 04/12/19 12:01 MB (Rec: 04/12/19 12:13 MB [id number]) OP Mobility Evaluation Transfers Sit to Stand Cues to lock w/c and rollator with sit to stand trials from one to the another and back. Pt occ performs a SPT turn and occ performs transfer facing surface she is transferring to (NuStep or w/c), holding onto surface she is transferring to and then reaching around as she pivots or takes small steps to sit. Wheelchair Management Type of Wheelchair Standard w/c Assessment Details Pt holds one leg up with the other foot occ, pushes wheelchair with UEs OP Gait Assessment Gait Gait Assistance Required: Contact Guard Assist Assistive Devices Assistive Device Front Wheeled Walker,4 Wheeled Walker Gait Deviations General Gait Pattern Decreased Stride Length, Decreased Feet Clearance, Flexed Trunk,Narrow Based Gait ,Step-to Gait Factors Limiting Gait Function Factors Limiting Gait Function Abnormal Tonal Influences, Decreased Activity Tolerance, Decreased Strength,Limited Range of Motion,Pain Comments Gait Comments Gait trained 20'x4 and 40'x2; equally divided between use of her rollator and hospital 2WRW. Pt presents with increased knee flexion and buckling, greater on the right , right ankle fusion and little push off, improved left PF tone with WB, step-to gait , quick fatigue, occ c/o right calf discomfort. She has heavy use of UEs, flexed trunk . PT-OP-J Posture/Palpation/Skin Start: 04/07/19 12:57 Freq: Status: Active Protocol: Document 04/07/19 14:10 MB (Rec: 04/07/19 14:45 MB [id number]) Skin Assessment Edema Assessment Right Leg Comments Mild pitting edema B LEs proximal ankle to foot Left Leg Comments Mild pitting edema B LEs proximal ankle to foot PT-OP-K Range of Motion Start: 04/07/19 12:57 Freq: Status: Active Protocol: Document 04/07/19 14:10 MB (Rec: 04/07/19 14:45 MB [id number]) Hip Goniometric Range of Motion Hip ROM Limitations Comments LLE hip flexor contraction movements with attempted AROM left LE. Right hip flexion with ability to briefly lift her right LE off the plinth in supine. Knee Goniometric Range of Motion Knee ROM Limitations Comments Extensor lag with attempted SLR on the right leg. She has arthritic joint changes. LLE spasming with all attempted AROM. Ankle and Foot Goniometric Range of Motion Ankle and Foot ROM Limitations Comments B ankles with limited ROM. Unable to test LLE d/t increased proximal joints flexor tone with attempted passive and active movement of foot. 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 PT-OP-M Strength Start: 04/07/19 12:57 Freq: Status: Active Protocol: Document 04/07/19 14:10 MB (Rec: 04/07/19 14:45 MB [id number]) Hip Strength Hip Manual Muscle Testing Right Flexion (L2) 2+ Poor+ Abduction 2- Poor- Comments Testing in supine. Pt is unable to perform any MMT on LLE d/t flexion tone easily provoked. Knee Strength Knee Manual Muscle Testing Right Flexion (S2) 3- Fair- Extension (L3) 3- Fair- Comments Testing in supine. Unable to perform MMT on LLE d/t flexion tone easily provoked. PT-OP-Q Treatments Start: 04/12/19 12:13 Freq: Status: Active Protocol: Document 04/29/19 13:51 SP (Rec: 04/29/19 14:02 SP [email or web address]) Cardio Equipment Recumbent Stepper (Sci-Fit) Duration (Minutes) 10 Resistance 2-2.5 Other Pt requires asst to get feet up today Therapeutic Exercises Sitting Exercises seated march Reps/Minutes 2x5 Comments warm up pre gait LAQ Side bilateral Resistance AROM Reps/Minutes 3x10 Comments warm up pre gait Standing Exercises pre gait wt shifting Standing Exercise Name step taps forward/backward Side bilateral Equipment Used //bar Reps/Minutes 3x5 Comments cued for LLE knee extension Gait Training Gait Activity 1 Description foward gait Device Used //bar, Level of Assistance CGA Surface level Distance/Duration 10 ft //bar, 15 ft x2 4ww Treatment Focus knee extension for gait in home endurance Comments occasional cues for LLE knee extension PT-OP-S Aquatic Treatment Start: 04/12/19 12:13 Freq: Status: Active Protocol: Document 05/02/19 12:30 LJ (Rec: 05/02/19 16:37 LJ [id number]) Aquatics Treatment Pool Entry/Exit Pool Entry/Exit Method Lift Assistance Moderate Assistance Comments pt unsteady and unable to control LEs for safe transfers w/o assist Water Walking forward with FWW Water Level Waist Level Walking Equipment FWW, ankle wts Level of Assistance Contact Guard Assistance, Minimal Assistance,Verbal Cues Sideways Water Level Chest Level Walking Equipment Ankle Weight- 2.5# Level of Assistance Moderate Assistance,Verbal Cues Comments at wall Lower Extremity Exercises hip ab/ad Body Position Standing Water Level Waist Level Equipment Ankle Weight- 2.5# Comments at wall sit<>stand Details on table Water Level Chest Level Comments lg box for hand to push off, FWW, pool edge weight shifting Details hand hold at wall Body Position Standing Water Level Chest Level Equipment Ankle Weight- 2.5# Reps/Duration 3 min hip extension Details in corner Body Position Standing Water Level Chest Level Equipment Ankle Weight- 2.5# Reps/Duration 10 bilat Comments verbal and manual cues with mod assist Upper Extremity Exercises ab/ad, flex/ext Details braced at wall Body Position Standing Water Level Chest Level Equipment Ankle Weight- 2.5# Reps/Duration 10x Comments Raj for stabilization Spinal Exercises spinal extension Details spinal extension to correct forward lean Body Position Standing Water Level Chest Level Equipment Ankle Weight- 2.5# Reps/Duration 3 min Comments extend and hold position with handhold on wall [place] Activities Equipment blue float, #2.5 wts Duration 8 min Comments req mdA PT-OP-T Assessment and Plan Start: 04/07/19 12:57 Freq: Status: Active Protocol: Document 05/02/19 12:30 ETHAN (Rec: 05/02/19 16:37 [id number]) Physical Therapy Assessment Rehab Potential Rehabilitation Potential Fair Evaluation Complexity Number of Personal Factors/Comorbidities 3 or More Number of Body Systems Impaired 1-2 Clinical Presentation at Evaluation Evolving Impairments Impairments Activity Tolerance,Balance, Coordination,Edema,Functional Activities,Functional Mobility ,Gait,Integument,Pain,Posture, ROM,Sensation,Soft Tissue Mobility,Strength,Tone, Transfers Other Impairments Decreased proprioception all left toes. R toes are intact. Decreased sensation to light touch all dermatomes LLE. Other Concerns Fall Risk High Barriers to Rehabilitation Multiple body systems affected including central ( progressive disease, MS; history of lumbar surgery, reports knee and foot changes (right ankle fusion) and knee for TKR) Goals Four Senior Care Goal (LTG) Pt will gait train 25 feet with superv with RW by 06/07/19. 3 Senior Care Goal (LTG) Pt will perform progressive HEP with I by 06/07/19. 2 Certified Pharmacy Technician Goal (LTG) Pt will perform 3 repeated reps of sit<->stand with mod I without LE buckling to reduce fall risk by 06/07/19. 1 Senior Care Goal (LTG) Pt will maintain standing balance with mod I and use of LRAD for at least 30 sec to decrease fall risk and prepare for gait by 06/07/19. Assessment Summary Assessment Pt requiring assist with transfer into and out of lift chair. She had more difficulty with LOB in gait activities this session. Ankle weight was fastened to her foot to correct leg length discrepency and level off hips. Somewhat effective but had other challenges with it. Pt had less trunk control in deep water this session. Physical Therapy Plan Therapeutic Interventions Therapeutic Interventions Aquatic Therapy,Balance Training,Coordination Training ,Gait Training,Home Exercise Program,Manual Therapy, Neuromuscular Re-education, Patient/Caregiver Education, Self-Care/Home Management, Taping,Therapeutic Activities, Therapeutic Exercises, Wheelchair Management Modalities Cold Pack/Ice Massage,Electric Stimulation,Ultrasound Next Visit Focus/Plan Next Note Type Treatment Note Next Visit Plan Con't strengthening, balance, transfers, and gait training.
--- NOTE | 2019-05-05 16:08 | PT.OTN ---
Current Diagnoses Multiple sclerosis (05/05/19) Weakness (05/05/19) Physical Therapy Treatment Note PT-OP-A Visit Information Start: 04/07/19 12:57 Freq: Status: Active Protocol: Document 05/05/19 09:01 MB (Rec: 05/05/19 09:11 MB [id number]) Out-Patient Physical Therapy Visit Information Visit Information Visit Type Treatment Note Visit Note This date, PT reviewed all goals, updated them and established new POC. Visit Start Time 09:01 Visit Stop Time 09:45 Total Visit Minutes 44 Visit Number 03/22 Number of OLEOMARGARINE MAKER Visits 5 PT-OP-B Current Condition Start: 04/07/19 12:57 Freq: Status: Active Protocol: Document 04/07/19 12:14 MB (Rec: 04/07/19 14:06 MB [id number]) Current Condition History of Current Condition Onset Date Progressive Current Complaints Pt reports gradual inability to walk and increasing buckling of her legs History of Current Condition Hx progressive MS, right ankle fusion and back surgery. Progressive trouble with walking Prior Treatments and Tests Spine and right ankle sxs, PT, pt states she just started a medication for LE spasming, cannot state what medication Treatment Goals Patient/Caregiver Goals To walk with walker. Her goal is to be able to walk outside. She first states that she would like to get back to walking a mile daily but she then appears to communicate that this is unlikely given her current presentaion in setting of progressive disease process. Prior Functional Status Baseline Function- ADL's Needs Assist Baseline Function- Mobility Needs Assist Baseline Function- Gait Currently, unable to walk d/t falling. Has been transferring and using w/c Baseline Function- Other Pt states she was walking with walker 3 weeks ago and when her legs collapsed and she fell. EMS had to help get her off of the floor. Current Functional Impairments (Reported) Functional Limitations- ADL's She reports mod I with showering while sitting on shower chair and use of rails as needed. Asst to tie her shoes. She performs ADL tasks sitting. Functional Limitations- Mobility/Gait Currently, unable to take a step without LEs buckling Personal Factors Other Personal Factors That May Effect Progressive disease, right Therapy/Recovery ankle fusion that pt states is failing and LLE flexion tone and spasming pain up to 9-10 /10 are barriers to PT. PT-OP-C Subjective Start: 04/07/19 12:57 Freq: Status: Active Protocol: Document 05/05/19 09:01 MB (Rec: 05/05/19 09:11 MB [id number]) OP-PT Subjective Patient Comments Patient Comments Things are the same at home but she has not gone down or had a fall. She has gone short distances with the walker in the mornings. She thinks transferring might has improved. PT-OP-D Balance Start: 04/07/19 12:57 Freq: Status: Active Protocol: Document 04/07/19 14:10 MB (Rec: 04/07/19 14:45 MB [id number]) OP-PT Balance Assessment Sitting Balance Static Sitting Balance Ability Good Dynamic Sitting Balance Ability Good Sitting Balance Comments UE support for sitting balance and must hold onto plinth when bending down to reach for her shoe to put it on. Standing Balance Static Standing Balance Ability Poor Dynamic Standing Balance Ability Poor Standing Balance Comments Pt holds onto chair in front of her for static standing 10 sec. She presents with B leg fatigue/buckling and uses heavy UE support. Pt attempts to lift one foot and then the other but the single stance leg (both right and left when single stance) deanna, requiring her to sit. CGA. Balance Tests Other Other Balance Tests Performed Pt unable to tolerate sit to stand testing trial or other static standing tests d/t LE buckling. Morgan Fall Scale Copyright Permission PT-OP-G Mobility & Gait Start: 04/07/19 12:57 Freq: Status: Active Protocol: Document 04/12/19 12:01 MB (Rec: 04/12/19 12:13 MB [id number]) OP Mobility Evaluation Transfers Sit to Stand Cues to lock w/c and rollator with sit to stand trials from one to the another and back. Pt occ performs a SPT turn and occ performs transfer facing surface she is transferring to (NuStep or w/c), holding onto surface she is transferring to and then reaching around as she pivots or takes small steps to sit. Wheelchair Management Type of Wheelchair Standard w/c Assessment Details Pt holds one leg up with the other foot occ, pushes wheelchair with UEs OP Gait Assessment Gait Gait Assistance Required: Contact Guard Assist Assistive Devices Assistive Device Front Wheeled Walker,4 Wheeled Walker Gait Deviations General Gait Pattern Decreased Stride Length, Decreased Feet Clearance, Flexed Trunk,Narrow Based Gait ,Step-to Gait Factors Limiting Gait Function Factors Limiting Gait Function Abnormal Tonal Influences, Decreased Activity Tolerance, Decreased Strength,Limited Range of Motion,Pain Comments Gait Comments Gait trained 20'x4 and 40'x2; equally divided between use of her rollator and hospital 2WRW. Pt presents with increased knee flexion and buckling, greater on the right , right ankle fusion and little push off, improved left PF tone with WB, step-to gait , quick fatigue, occ c/o right calf discomfort. She has heavy use of UEs, flexed trunk . PT-OP-J Posture/Palpation/Skin Start: 04/07/19 12:57 Freq: Status: Active Protocol: Document 04/07/19 14:10 MB (Rec: 04/07/19 14:45 MB [id number]) Skin Assessment Edema Assessment Right Leg Comments Mild pitting edema B LEs proximal ankle to foot Left Leg Comments Mild pitting edema B LEs proximal ankle to foot PT-OP-K Range of Motion Start: 04/07/19 12:57 Freq: Status: Active Protocol: Document 04/07/19 14:10 MB (Rec: 04/07/19 14:45 MB [id number]) Hip Goniometric Range of Motion Hip ROM Limitations Comments LLE hip flexor contraction movements with attempted AROM left LE. Right hip flexion with ability to briefly lift her right LE off the plinth in supine. Knee Goniometric Range of Motion Knee ROM Limitations Comments Extensor lag with attempted SLR on the right leg. She has arthritic joint changes. LLE spasming with all attempted AROM. Ankle and Foot Goniometric Range of Motion Ankle and Foot ROM Limitations Comments B ankles with limited ROM. Unable to test LLE d/t increased proximal joints flexor tone with attempted passive and active movement of foot. 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 PT-OP-M Strength Start: 04/07/19 12:57 Freq: Status: Active Protocol: Document 04/07/19 14:10 MB (Rec: 04/07/19 14:45 MB [id number]) Hip Strength Hip Manual Muscle Testing Right Flexion (L2) 2+ Poor+ Abduction 2- Poor- Comments Testing in supine. Pt is unable to perform any MMT on LLE d/t flexion tone easily provoked. Knee Strength Knee Manual Muscle Testing Right Flexion (S2) 3- Fair- Extension (L3) 3- Fair- Comments Testing in supine. Unable to perform MMT on LLE d/t flexion tone easily provoked. PT-OP-Q Treatments Start: 04/12/19 12:13 Freq: Status: Active Protocol: Document 05/05/19 09:01 MB (Rec: 05/05/19 09:47 MB [id number]) Therapeutic Activity Therapeutic Activity Multiple transfers for reassessing goals Comments Sit to stands for trials for goal, to NuStep, up and down to walker for TUG and to test standing balance. See goal comments today. Gait Training Gait Activity Gait trials with rollator Comments Gait trials with rollator for testing today for reassessment . See goal comments today. PT-OP-S Aquatic Treatment Start: 04/12/19 12:13 Freq: Status: Active Protocol: Document 05/02/19 12:30 LJ (Rec: 05/02/19 16:37 LJ [id number]) Aquatics Treatment Pool Entry/Exit Pool Entry/Exit Method Lift Assistance Moderate Assistance Comments pt unsteady and unable to control LEs for safe transfers w/o assist Water Walking forward with FWW Water Level Waist Level Walking Equipment FWW, ankle wts Level of Assistance Contact Guard Assistance, Minimal Assistance,Verbal Cues Sideways Water Level Chest Level Walking Equipment Ankle Weight- 2.5# Level of Assistance Moderate Assistance,Verbal Cues Comments at wall Lower Extremity Exercises hip ab/ad Body Position Standing Water Level Waist Level Equipment Ankle Weight- 2.5# Comments at wall sit<>stand Details on table Water Level Chest Level Comments lg box for hand to push off, FWW, pool edge weight shifting Details hand hold at wall Body Position Standing Water Level Chest Level Equipment Ankle Weight- 2.5# Reps/Duration 3 min hip extension Details in corner Body Position Standing Water Level Chest Level Equipment Ankle Weight- 2.5# Reps/Duration 10 bilat Comments verbal and manual cues with mod assist Upper Extremity Exercises ab/ad, flex/ext Details braced at wall Body Position Standing Water Level Chest Level Equipment Ankle Weight- 2.5# Reps/Duration 10x Comments Raj for stabilization Spinal Exercises spinal extension Details spinal extension to correct forward lean Body Position Standing Water Level Chest Level Equipment Ankle Weight- 2.5# Reps/Duration 3 min Comments extend and hold position with handhold on wall [place] Activities Equipment blue float, #2.5 wts Duration 8 min Comments req mdA PT-OP-T Assessment and Plan Start: 04/07/19 12:57 Freq: Status: Active Protocol: Document 05/05/19 09:01 MB (Rec: 05/05/19 09:11 MB [id number]) Physical Therapy Assessment Rehab Potential Rehabilitation Potential Fair Evaluation Complexity Number of Personal Factors/Comorbidities 3 or More Number of Body Systems Impaired 1-2 Clinical Presentation at Evaluation Evolving Impairments Impairments Activity Tolerance,Balance, Coordination,Edema,Functional Activities,Functional Mobility ,Gait,Integument,Pain,Posture, ROM,Sensation,Soft Tissue Mobility,Strength,Tone, Transfers Other Impairments Decreased proprioception all left toes. R toes are intact. Decreased sensation to light touch all dermatomes LLE. Other Concerns Fall Risk High Barriers to Rehabilitation Multiple body systems affected including central ( progressive disease, MS; history of lumbar surgery, reports knee and foot changes (right ankle fusion) and knee for TKR) Goals 5 Hop Worker Goal (LTG) Pt will perform TUG in less than 30 sec to improve functional I and decrease fall risk by 07/05/19. Four Halfway Goal (LTG) Pt will gait train 50 feet with superv with RW by . 05/05/19 progressed towards goal. Pt uses rollator and makes one right turn, takes 1 minute. Her posture is much taller. She does con't 10 more feet gait and turn left before sitting in w/c 3 Halfway Goal (LTG) Pt will perform progressive HEP with I by 07/05/19. 05/05/19 progressing towards goal--performing mini hip clearing for sit to stand prep 2 Hop Worker Goal (LTG) Pt will perform 5 repeated reps of sit<->stand with mod I without LE buckling to reduce fall risk by 07/05/19. 05/05/19 progressing towards goal: performs 3 reps with cues to push up from chair and pt holding onto PT's elbows 1 Hop Worker Goal (LTG) Pt will maintain standing balance with mod I and use of LRAD for at least 45 sec to decrease fall risk and prepare for gait by 07/05/19. 05/05/19 perform 30 sec static standing with walker, able to shift weight and increase MARILYN with CGA to superv, 15 sec standing without AD and with CGA Progress Towards Goals Progress Towards Goals Progressing Toward Goals,Slow Progress due to Activity Tolerance Assessment Summary Assessment Pt has progressed towards the following goals since starting PT: sit to stands, gait, performance of 1 HEP exercise, standing balance with LRAD. Advanced goals today and will send an updated POC. Progressive disease (MS) and LE anomalies are barriers to PT. Physical Therapy Plan Therapeutic Interventions Therapeutic Interventions Aquatic Therapy,Balance Training,Coordination Training ,Gait Training,Home Exercise Program,Manual Therapy, Neuromuscular Re-education, Patient/Caregiver Education, Self-Care/Home Management, Taping,Therapeutic Activities, Therapeutic Exercises, Wheelchair Management Modalities Cold Pack/Ice Massage,Electric Stimulation,Ultrasound Next Visit Focus/Plan Next Note Type Treatment Note Next Visit Plan Con't strengthening, balance, transfers, and gait training.
--- NOTE | 2019-05-11 15:52 | PT.OTN ---
Current Diagnoses Multiple sclerosis (05/11/19) Weakness (05/11/19) Physical Therapy Treatment Note PT-OP-A Visit Information Start: 04/07/19 12:57 Freq: Status: Active Protocol: Document 05/11/19 11:00 LJ (Rec: 05/11/19 15:52 LJ [id number]) Out-Patient Physical Therapy Visit Information Visit Information Visit Type Aquatic Treatment Note Visit Start Time 11:05 Visit Stop Time 11:45 Total Visit Minutes 40 Visit Number 04/21 Number of MANAGER OF DISASTER RECOVERY Visits 1 PT-OP-B Current Condition Start: 04/07/19 12:57 Freq: Status: Active Protocol: Document 04/07/19 12:14 MB (Rec: 04/07/19 14:06 MB [id number]) Current Condition History of Current Condition Onset Date Progressive Current Complaints Pt reports gradual inability to walk and increasing buckling of her legs History of Current Condition Hx progressive MS, right ankle fusion and back surgery. Progressive trouble with walking Prior Treatments and Tests Spine and right ankle sxs, PT, pt states she just started a medication for LE spasming, cannot state what medication Treatment Goals Patient/Caregiver Goals To walk with walker. Her goal is to be able to walk outside. She first states that she would like to get back to walking a mile daily but she then appears to communicate that this is unlikely given her current presentaion in setting of progressive disease process. Prior Functional Status Baseline Function- ADL's Needs Assist Baseline Function- Mobility Needs Assist Baseline Function- Gait Currently, unable to walk d/t falling. Has been transferring and using w/c Baseline Function- Other Pt states she was walking with walker 3 weeks ago and when her legs collapsed and she fell. EMS had to help get her off of the floor. Current Functional Impairments (Reported) Functional Limitations- ADL's She reports mod I with showering while sitting on shower chair and use of rails as needed. Asst to tie her shoes. She performs ADL tasks sitting. Functional Limitations- Mobility/Gait Currently, unable to take a step without LEs buckling Personal Factors Other Personal Factors That May Effect Progressive disease, right Therapy/Recovery ankle fusion that pt states is failing and LLE flexion tone and spasming pain up to 9-10 /10 are barriers to PT. PT-OP-C Subjective Start: 04/07/19 12:57 Freq: Status: Active Protocol: Document 05/11/19 11:00 LJ (Rec: 05/11/19 15:52 LJ [id number]) OP-PT Subjective Patient Comments Patient Comments Pt reports she is having pain in the LLE with cretain movements. Not sure what she did to cause the pain but it hurts on the outside of my leg and in back of my knee sometimes. PT-OP-D Balance Start: 04/07/19 12:57 Freq: Status: Active Protocol: Document 04/07/19 14:10 MB (Rec: 04/07/19 14:45 MB [id number]) OP-PT Balance Assessment Sitting Balance Static Sitting Balance Ability Good Dynamic Sitting Balance Ability Good Sitting Balance Comments UE support for sitting balance and must hold onto plinth when bending down to reach for her shoe to put it on. Standing Balance Static Standing Balance Ability Poor Dynamic Standing Balance Ability Poor Standing Balance Comments Pt holds onto chair in front of her for static standing 10 sec. She presents with B leg fatigue/buckling and uses heavy UE support. Pt attempts to lift one foot and then the other but the single stance leg (both right and left when single stance) deanna, requiring her to sit. CGA. Balance Tests Other Other Balance Tests Performed Pt unable to tolerate sit to stand testing trial or other static standing tests d/t LE buckling. Morgan Fall Scale Copyright Permission PT-OP-G Mobility & Gait Start: 04/07/19 12:57 Freq: Status: Active Protocol: Document 04/12/19 12:01 MB (Rec: 04/12/19 12:13 MB [id number]) OP Mobility Evaluation Transfers Sit to Stand Cues to lock w/c and rollator with sit to stand trials from one to the another and back. Pt occ performs a SPT turn and occ performs transfer facing surface she is transferring to (NuStep or w/c), holding onto surface she is transferring to and then reaching around as she pivots or takes small steps to sit. Wheelchair Management Type of Wheelchair Standard w/c Assessment Details Pt holds one leg up with the other foot occ, pushes wheelchair with UEs OP Gait Assessment Gait Gait Assistance Required: Contact Guard Assist Assistive Devices Assistive Device Front Wheeled Walker,4 Wheeled Walker Gait Deviations General Gait Pattern Decreased Stride Length, Decreased Feet Clearance, Flexed Trunk,Narrow Based Gait ,Step-to Gait Factors Limiting Gait Function Factors Limiting Gait Function Abnormal Tonal Influences, Decreased Activity Tolerance, Decreased Strength,Limited Range of Motion,Pain Comments Gait Comments Gait trained 20'x4 and 40'x2; equally divided between use of her rollator and hospital 2WRW. Pt presents with increased knee flexion and buckling, greater on the right , right ankle fusion and little push off, improved left PF tone with WB, step-to gait , quick fatigue, occ c/o right calf discomfort. She has heavy use of UEs, flexed trunk . PT-OP-J Posture/Palpation/Skin Start: 04/07/19 12:57 Freq: Status: Active Protocol: Document 04/07/19 14:10 MB (Rec: 04/07/19 14:45 MB [id number]) Skin Assessment Edema Assessment Right Leg Comments Mild pitting edema B LEs proximal ankle to foot Left Leg Comments Mild pitting edema B LEs proximal ankle to foot PT-OP-K Range of Motion Start: 04/07/19 12:57 Freq: Status: Active Protocol: Document 04/07/19 14:10 MB (Rec: 04/07/19 14:45 MB [id number]) Hip Goniometric Range of Motion Hip ROM Limitations Comments LLE hip flexor contraction movements with attempted AROM left LE. Right hip flexion with ability to briefly lift her right LE off the plinth in supine. Knee Goniometric Range of Motion Knee ROM Limitations Comments Extensor lag with attempted SLR on the right leg. She has arthritic joint changes. LLE spasming with all attempted AROM. Ankle and Foot Goniometric Range of Motion Ankle and Foot ROM Limitations Comments B ankles with limited ROM. Unable to test LLE d/t increased proximal joints flexor tone with attempted passive and active movement of foot. 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 PT-OP-M Strength Start: 04/07/19 12:57 Freq: Status: Active Protocol: Document 04/07/19 14:10 MB (Rec: 04/07/19 14:45 MB [id number]) Hip Strength Hip Manual Muscle Testing Right Flexion (L2) 2+ Poor+ Abduction 2- Poor- Comments Testing in supine. Pt is unable to perform any MMT on LLE d/t flexion tone easily provoked. Knee Strength Knee Manual Muscle Testing Right Flexion (S2) 3- Fair- Extension (L3) 3- Fair- Comments Testing in supine. Unable to perform MMT on LLE d/t flexion tone easily provoked. PT-OP-Q Treatments Start: 04/12/19 12:13 Freq: Status: Active Protocol: Document 05/05/19 09:01 MB (Rec: 05/05/19 09:47 MB [id number]) Therapeutic Activity Therapeutic Activity Multiple transfers for reassessing goals Comments Sit to stands for trials for goal, to NuStep, up and down to walker for TUG and to test standing balance. See goal comments today. Gait Training Gait Activity Gait trials with rollator Comments Gait trials with rollator for testing today for reassessment . See goal comments today. PT-OP-S Aquatic Treatment Start: 04/12/19 12:13 Freq: Status: Active Protocol: Document 05/11/19 11:00 LJ (Rec: 05/11/19 15:52 LJ [id number]) Aquatics Treatment Pool Entry/Exit Pool Entry/Exit Method Lift Assistance Moderate Assistance Comments better control of LLE Water Walking forward with FWW Water Level Waist Level Walking Equipment FWW, ankle wts, AFO brace and wts on bottom of foot Level of Assistance Contact Guard Assistance, Verbal Cues Sideways Water Level Chest Level Walking Equipment Ankle Weight- 2.5# B Level of Assistance Standby Assistance,Verbal Cues Forwards Water Level Chest Level Walking Equipment Ankle Weight- 2.5# B + #5 under foot and AFO LLE Level of Assistance Contact Guard Assistance, Verbal Cues Comments white noodle Lower Extremity Exercises hip ab/ad Body Position Standing Water Level Waist Level Equipment Ankle Weight- 2.5# Comments at wall sit<>stand Details on table Water Level Chest Level Comments lg box for hand to push off, FWW, pool edge weight shifting Details hand hold at wall Body Position Standing Water Level Chest Level Equipment Ankle Weight- 2.5#, AFO + #5 Reps/Duration 2 min hip extension Details in corner Body Position Standing Water Level Chest Level Equipment Ankle Weight- 2.5# Reps/Duration 10 bilat Comments verbal and manual cues with mod assist Lower Extremity Stretches dorsi/plantar flexion Body Position Standing Water Level Chest Level Reps/Duration 2x45 sec B Comments therapist assisted hip flexor Body Position Standing Water Level Chest Level Reps/Duration 2 x45 sec B Comments at wall Balance static standing balance Details braced in corner Body Position Standing Water Level Chest Level Reps/Duration 4 min Comments occasional HH on wall; cues for posture and knee extension [place] Activities Equipment blue float, #2.5 wts; no AFO Duration 6 min Comments req mdA PT-OP-T Assessment and Plan Start: 04/07/19 12:57 Freq: Status: Active Protocol: Document 05/11/19 11:00 ETHAN (Rec: 05/11/19 15:52 LJ [id number]) Physical Therapy Assessment Rehab Potential Rehabilitation Potential Fair Evaluation Complexity Number of Personal Factors/Comorbidities 3 or More Number of Body Systems Impaired 1-2 Clinical Presentation at Evaluation Evolving Impairments Impairments Activity Tolerance,Balance, Coordination,Edema,Functional Activities,Functional Mobility ,Gait,Integument,Pain,Posture, ROM,Sensation,Soft Tissue Mobility,Strength,Tone, Transfers Other Impairments Decreased proprioception all left toes. R toes are intact. Decreased sensation to light touch all dermatomes LLE. Other Concerns Fall Risk High Barriers to Rehabilitation Multiple body systems affected including central ( progressive disease, MS; history of lumbar surgery, reports knee and foot changes (right ankle fusion) and knee for TKR) Goals 5 Tax Staff Accountant Goal (LTG) Pt will perform TUG in less than 30 sec to improve functional I and decrease fall risk by 07/05/19. Four Skilled Nursing Goal (LTG) Pt will gait train 50 feet with superv with RW by . 05/05/19 progressed towards goal. Pt uses rollator and makes one right turn, takes 1 minute. Her posture is much taller. She does con't 10 more feet gait and turn left before sitting in w/c 3 Tax Staff Accountant Goal (LTG) Pt will perform progressive HEP with I by 07/05/19. 05/05/19 progressing towards goal--performing mini hip clearing for sit to stand prep 2 Skilled Nursing Goal (LTG) Pt will perform 5 repeated reps of sit<->stand with mod I without LE buckling to reduce fall risk by 07/05/19. 05/05/19 progressing towards goal: performs 3 reps with cues to push up from chair and pt holding onto PT's elbows 1 Tax Staff Accountant Goal (LTG) Pt will maintain standing balance with mod I and use of LRAD for at least 45 sec to decrease fall risk and prepare for gait by 07/05/19. 05/05/19 perform 30 sec static standing with walker, able to shift weight and increase MARILYN with CGA to superv, 15 sec standing without AD and with CGA Progress Towards Goals Progress Towards Goals Progressing Toward Goals,Slow Progress due to Activity Tolerance Assessment Summary Assessment Pt was more stable in walking and balance activities while using AFO and wts on bottom of her L foot. Pt improved with transfers and sit>stand>walk using noodle and FWW in pool. Reuires constant cueing for extendng bilateral knees and extending trunk while ambulating and transfering. Physical Therapy Plan Therapeutic Interventions Therapeutic Interventions Aquatic Therapy,Balance Training,Coordination Training ,Gait Training,Home Exercise Program,Manual Therapy, Neuromuscular Re-education, Patient/Caregiver Education, Self-Care/Home Management, Taping,Therapeutic Activities, Therapeutic Exercises, Wheelchair Management Modalities Cold Pack/Ice Massage,Electric Stimulation,Ultrasound Next Visit Focus/Plan Next Note Type Treatment Note Next Visit Plan Con't strengthening, balance, transfers, and gait training.
--- NOTE | 2019-05-13 10:28 | PT.OTN ---
Current Diagnoses Multiple sclerosis (05/13/19) Weakness (05/13/19) Physical Therapy Treatment Note PT-OP-A Visit Information Start: 04/07/19 12:57 Freq: Status: Active Protocol: Document 05/13/19 10:28 SP (Rec: 05/13/19 11:49 SP [id number]) Out-Patient Physical Therapy Visit Information Visit Information Visit Type Treatment Note Visit Start Time 09:42 Visit Stop Time 10:28 Total Visit Minutes 49 Visit Number 2/10 Number of FIELD CROP I FARMWORKER Visits 2 PT-OP-B Current Condition Start: 04/07/19 12:57 Freq: Status: Active Protocol: Document 04/07/19 12:14 MB (Rec: 04/07/19 14:06 MB [id number]) Current Condition History of Current Condition Onset Date Progressive Current Complaints Pt reports gradual inability to walk and increasing buckling of her legs History of Current Condition Hx progressive MS, right ankle fusion and back surgery. Progressive trouble with walking Prior Treatments and Tests Spine and right ankle sxs, PT, pt states she just started a medication for LE spasming, cannot state what medication Treatment Goals Patient/Caregiver Goals To walk with walker. Her goal is to be able to walk outside. She first states that she would like to get back to walking a mile daily but she then appears to communicate that this is unlikely given her current presentaion in setting of progressive disease process. Prior Functional Status Baseline Function- ADL's Needs Assist Baseline Function- Mobility Needs Assist Baseline Function- Gait Currently, unable to walk d/t falling. Has been transferring and using w/c Baseline Function- Other Pt states she was walking with walker 3 weeks ago and when her legs collapsed and she fell. EMS had to help get her off of the floor. Current Functional Impairments (Reported) Functional Limitations- ADL's She reports mod I with showering while sitting on shower chair and use of rails as needed. Asst to tie her shoes. She performs ADL tasks sitting. Functional Limitations- Mobility/Gait Currently, unable to take a step without LEs buckling Personal Factors Other Personal Factors That May Effect Progressive disease, right Therapy/Recovery ankle fusion that pt states is failing and LLE flexion tone and spasming pain up to 9-10 /10 are barriers to PT. PT-OP-C Subjective Start: 04/07/19 12:57 Freq: Status: Active Protocol: Document 05/13/19 10:28 SP (Rec: 05/13/19 11:49 SP [email or web address]) OP-PT Subjective Patient Comments Patient Comments Pt reported 6/10 pain over L posterolateral hip and LB pre PT, unsure why. Can we go over how to do the pillow propping on my side today, unsure am doing it correctly to sleep better. I am having a hard time getting my L leg into bed to lay down, scoot back to get away from EOB and having to help me but can sit up myself. PT-OP-D Balance Start: 04/07/19 12:57 Freq: Status: Active Protocol: Document 04/07/19 14:10 MB (Rec: 04/07/19 14:45 MB [id number]) OP-PT Balance Assessment Sitting Balance Static Sitting Balance Ability Good Dynamic Sitting Balance Ability Good Sitting Balance Comments UE support for sitting balance and must hold onto plinth when bending down to reach for her shoe to put it on. Standing Balance Static Standing Balance Ability Poor Dynamic Standing Balance Ability Poor Standing Balance Comments Pt holds onto chair in front of her for static standing 10 sec. She presents with B leg fatigue/buckling and uses heavy UE support. Pt attempts to lift one foot and then the other but the single stance leg (both right and left when single stance) deanna, requiring her to sit. CGA. Balance Tests Other Other Balance Tests Performed Pt unable to tolerate sit to stand testing trial or other static standing tests d/t LE buckling. Morgan Fall Scale Copyright Permission PT-OP-G Mobility & Gait Start: 04/07/19 12:57 Freq: Status: Active Protocol: Document 04/12/19 12:01 MB (Rec: 04/12/19 12:13 MB [id number]) OP Mobility Evaluation Transfers Sit to Stand Cues to lock w/c and rollator with sit to stand trials from one to the another and back. Pt occ performs a SPT turn and occ performs transfer facing surface she is transferring to (NuStep or w/c), holding onto surface she is transferring to and then reaching around as she pivots or takes small steps to sit. Wheelchair Management Type of Wheelchair Standard w/c Assessment Details Pt holds one leg up with the other foot occ, pushes wheelchair with UEs OP Gait Assessment Gait Gait Assistance Required: Contact Guard Assist Assistive Devices Assistive Device Front Wheeled Walker,4 Wheeled Walker Gait Deviations General Gait Pattern Decreased Stride Length, Decreased Feet Clearance, Flexed Trunk,Narrow Based Gait ,Step-to Gait Factors Limiting Gait Function Factors Limiting Gait Function Abnormal Tonal Influences, Decreased Activity Tolerance, Decreased Strength,Limited Range of Motion,Pain Comments Gait Comments Gait trained 20'x4 and 40'x2; equally divided between use of her rollator and hospital 2WRW. Pt presents with increased knee flexion and buckling, greater on the right , right ankle fusion and little push off, improved left PF tone with WB, step-to gait , quick fatigue, occ c/o right calf discomfort. She has heavy use of UEs, flexed trunk . PT-OP-J Posture/Palpation/Skin Start: 04/07/19 12:57 Freq: Status: Active Protocol: Document 04/07/19 14:10 MB (Rec: 04/07/19 14:45 MB [id number]) Skin Assessment Edema Assessment Right Leg Comments Mild pitting edema B LEs proximal ankle to foot Left Leg Comments Mild pitting edema B LEs proximal ankle to foot PT-OP-K Range of Motion Start: 04/07/19 12:57 Freq: Status: Active Protocol: Document 04/07/19 14:10 MB (Rec: 04/07/19 14:45 MB [id number]) Hip Goniometric Range of Motion Hip ROM Limitations Comments LLE hip flexor contraction movements with attempted AROM left LE. Right hip flexion with ability to briefly lift her right LE off the plinth in supine. Knee Goniometric Range of Motion Knee ROM Limitations Comments Extensor lag with attempted SLR on the right leg. She has arthritic joint changes. LLE spasming with all attempted AROM. Ankle and Foot Goniometric Range of Motion Ankle and Foot ROM Limitations Comments B ankles with limited ROM. Unable to test LLE d/t increased proximal joints flexor tone with attempted passive and active movement of foot. 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 PT-OP-M Strength Start: 04/07/19 12:57 Freq: Status: Active Protocol: Document 04/07/19 14:10 MB (Rec: 04/07/19 14:45 MB [id number]) Hip Strength Hip Manual Muscle Testing Right Flexion (L2) 2+ Poor+ Abduction 2- Poor- Comments Testing in supine. Pt is unable to perform any MMT on LLE d/t flexion tone easily provoked. Knee Strength Knee Manual Muscle Testing Right Flexion (S2) 3- Fair- Extension (L3) 3- Fair- Comments Testing in supine. Unable to perform MMT on LLE d/t flexion tone easily provoked. PT-OP-Q Treatments Start: 04/12/19 12:13 Freq: Status: Active Protocol: Document 05/13/19 10:28 SP (Rec: 05/13/19 11:49 SP [email or web address]) Cardio Equipment Recumbent Stepper (Sci-Fit) Duration (Minutes) 10 Resistance 2.0 Seat Position 11 Therapeutic Exercises Supine Exercises hip abd Side bilateral Resistance AROM Reps/Minutes x5 Comments to assist L>R LE repositioning in bed bridge Supine Exercise Name double leg bridge Reps/Minutes 2x5 Comments cued for core activiation, to assist scooting trunk in bed away from EOB heel slide Resistance AROM R, AAROM L Reps/Minutes 2x5 Comments support provided for RLE knee flexion SKFO Supine Exercise Name Hip ER Side bilateral Equipment Used AROM Reps/Minutes 2x5 Comments keep pelvis contact with table B Sidelying Exercises clam shell Side left Equipment Used AROM Reps/Minutes 2x5 Comments verbal and tactile cue for stable pelvis, good response Sitting Exercises sit to stand Sitting Exercise Name hip hinge wt shift sit to stand Resistance AROM Reps/Minutes 2x5 Comments from raised table Gait Training Gait Activity Gait trials with rollator Description forward gait Device Used 4ww Level of Assistance CGA Surface level Distance/Duration 53 ft Comments cued for upright posture for RLE foot clearance/ advancement and not to large step over step to for risk of LLE buckling, decreased step length tiring as distance progressed. Self-Care/Home Management Treatment Education Patient Education Body Mechanics,Posture,Safety Caregiver Education Reviewed R sidelying positioning using pillows behind back, and under LLE for spinal and hip alignment with positive feedback. observed and understood to assist patient at home. PT-OP-S Aquatic Treatment Start: 04/12/19 12:13 Freq: Status: Active Protocol: Document 05/11/19 11:00 LJ (Rec: 05/11/19 15:52 LJ [id number]) Aquatics Treatment Pool Entry/Exit Pool Entry/Exit Method Lift Assistance Moderate Assistance Comments better control of LLE Water Walking forward with FWW Water Level Waist Level Walking Equipment FWW, ankle wts, AFO brace and wts on bottom of foot Level of Assistance Contact Guard Assistance, Verbal Cues Sideways Water Level Chest Level Walking Equipment Ankle Weight- 2.5# B Level of Assistance Standby Assistance,Verbal Cues Forwards Water Level Chest Level Walking Equipment Ankle Weight- 2.5# B + #5 under foot and AFO LLE Level of Assistance Contact Guard Assistance, Verbal Cues Comments white noodle Lower Extremity Exercises hip ab/ad Body Position Standing Water Level Waist Level Equipment Ankle Weight- 2.5# Comments at wall sit<>stand Details on table Water Level Chest Level Comments lg box for hand to push off, FWW, pool edge weight shifting Details hand hold at wall Body Position Standing Water Level Chest Level Equipment Ankle Weight- 2.5#, AFO + #5 Reps/Duration 2 min hip extension Details in corner Body Position Standing Water Level Chest Level Equipment Ankle Weight- 2.5# Reps/Duration 10 bilat Comments verbal and manual cues with mod assist Lower Extremity Stretches dorsi/plantar flexion Body Position Standing Water Level Chest Level Reps/Duration 2x45 sec B Comments therapist assisted hip flexor Body Position Standing Water Level Chest Level Reps/Duration 2 x45 sec B Comments at wall Balance static standing balance Details braced in corner Body Position Standing Water Level Chest Level Reps/Duration 4 min Comments occasional HH on wall; cues for posture and knee extension [place] Activities Equipment blue float, #2.5 wts; no AFO Duration 6 min Comments req mdA PT-OP-T Assessment and Plan Start: 04/07/19 12:57 Freq: Status: Active Protocol: Document 05/13/19 10:28 SP (Rec: 05/13/19 11:49 SP [email or web address]) Physical Therapy Assessment Assessment Summary Assessment Pt reported decrease in LB and leg pain during tx today, noted improvement in upright posture and B foot clearance during gait than when arrived SPT w/c to Sci Fit machine. Encouraged patient to use 4ww for UE support durign transfer and cuing assist from for posture. Reviewed pillow placement during R sidelying and spinal alignment with postive feedback results. Physical Therapy Plan Frequency and Duration Frequency of Treatment 2x/Week Duration of Treatment 8 weeks Plan of Care Start Date 04/07/19 Plan of Care End Date 06/07/19 Therapeutic Interventions Therapeutic Interventions Aquatic Therapy,Balance Training,Coordination Training ,Gait Training,Home Exercise Program,Manual Therapy, Neuromuscular Re-education, Patient/Caregiver Education, Self-Care/Home Management, Taping,Therapeutic Activities, Therapeutic Exercises, Wheelchair Management Modalities Cold Pack/Ice Massage,Electric Stimulation,Ultrasound Next Visit Focus/Plan Next Note Type Treatment Note Next Visit Plan Review supine and STS exercises to support strength with BM and transfers. Con't strengthening, balance, transfers, and gait training.
--- NOTE | 2019-05-17 12:08 | PT.OTN ---
Current Diagnoses Multiple sclerosis (05/17/19) Weakness (05/17/19) Physical Therapy Treatment Note PT-OP-A Visit Information Start: 04/07/19 12:57 Freq: Status: Active Protocol: Document 05/17/19 11:14 MB (Rec: 05/17/19 12:07 MB [id number]) Out-Patient Physical Therapy Visit Information Visit Information Visit Type Treatment Note Visit Note 05/17/19: Pt has had 12 visits, combined land and pool. Another progress note/POC updated IF needed at visit 20 Visit Start Time 11:14 Visit Stop Time 11:59 Total Visit Minutes 45 Visit Number 12/unlimited PT-OP-B Current Condition Start: 04/07/19 12:57 Freq: Status: Active Protocol: Document 04/07/19 12:14 MB (Rec: 04/07/19 14:06 MB [id number]) Current Condition History of Current Condition Onset Date Progressive Current Complaints Pt reports gradual inability to walk and increasing buckling of her legs History of Current Condition Hx progressive MS, right ankle fusion and back surgery. Progressive trouble with walking Prior Treatments and Tests Spine and right ankle sxs, PT, pt states she just started a medication for LE spasming, cannot state what medication Treatment Goals Patient/Caregiver Goals To walk with walker. Her goal is to be able to walk outside. She first states that she would like to get back to walking a mile daily but she then appears to communicate that this is unlikely given her current presentaion in setting of progressive disease process. Prior Functional Status Baseline Function- ADL's Needs Assist Baseline Function- Mobility Needs Assist Baseline Function- Gait Currently, unable to walk d/t falling. Has been transferring and using w/c Baseline Function- Other Pt states she was walking with walker 3 weeks ago and when her legs collapsed and she fell. EMS had to help get her off of the floor. Current Functional Impairments (Reported) Functional Limitations- ADL's She reports mod I with showering while sitting on shower chair and use of rails as needed. Asst to tie her shoes. She performs ADL tasks sitting. Functional Limitations- Mobility/Gait Currently, unable to take a step without LEs buckling Personal Factors Other Personal Factors That May Effect Progressive disease, right Therapy/Recovery ankle fusion that pt states is failing and LLE flexion tone and spasming pain up to 9-10 /10 are barriers to PT. PT-OP-C Subjective Start: 04/07/19 12:57 Freq: Status: Active Protocol: Document 05/17/19 11:14 MB (Rec: 05/17/19 12:07 MB [id number]) OP-PT Subjective Patient Comments Patient Comments Pt states that she was using foot pedals at home and might have been angled poorly. This may have caused left hip pain. She returns to see referring provider next date. She was able to do two laps around the house with walker yesterday. PT-OP-D Balance Start: 04/07/19 12:57 Freq: Status: Active Protocol: Document 04/07/19 14:10 MB (Rec: 04/07/19 14:45 MB [id number]) OP-PT Balance Assessment Sitting Balance Static Sitting Balance Ability Good Dynamic Sitting Balance Ability Good Sitting Balance Comments UE support for sitting balance and must hold onto plinth when bending down to reach for her shoe to put it on. Standing Balance Static Standing Balance Ability Poor Dynamic Standing Balance Ability Poor Standing Balance Comments Pt holds onto chair in front of her for static standing 10 sec. She presents with B leg fatigue/buckling and uses heavy UE support. Pt attempts to lift one foot and then the other but the single stance leg (both right and left when single stance) deanna, requiring her to sit. CGA. Balance Tests Other Other Balance Tests Performed Pt unable to tolerate sit to stand testing trial or other static standing tests d/t LE buckling. Morgan Fall Scale Copyright Permission PT-OP-G Mobility & Gait Start: 04/07/19 12:57 Freq: Status: Active Protocol: Document 04/12/19 12:01 MB (Rec: 04/12/19 12:13 MB [id number]) OP Mobility Evaluation Transfers Sit to Stand Cues to lock w/c and rollator with sit to stand trials from one to the another and back. Pt occ performs a SPT turn and occ performs transfer facing surface she is transferring to (NuStep or w/c), holding onto surface she is transferring to and then reaching around as she pivots or takes small steps to sit. Wheelchair Management Type of Wheelchair Standard w/c Assessment Details Pt holds one leg up with the other foot occ, pushes wheelchair with UEs OP Gait Assessment Gait Gait Assistance Required: Contact Guard Assist Assistive Devices Assistive Device Front Wheeled Walker,4 Wheeled Walker Gait Deviations General Gait Pattern Decreased Stride Length, Decreased Feet Clearance, Flexed Trunk,Narrow Based Gait ,Step-to Gait Factors Limiting Gait Function Factors Limiting Gait Function Abnormal Tonal Influences, Decreased Activity Tolerance, Decreased Strength,Limited Range of Motion,Pain Comments Gait Comments Gait trained 20'x4 and 40'x2; equally divided between use of her rollator and hospital 2WRW. Pt presents with increased knee flexion and buckling, greater on the right , right ankle fusion and little push off, improved left PF tone with WB, step-to gait , quick fatigue, occ c/o right calf discomfort. She has heavy use of UEs, flexed trunk . PT-OP-J Posture/Palpation/Skin Start: 04/07/19 12:57 Freq: Status: Active Protocol: Document 04/07/19 14:10 MB (Rec: 04/07/19 14:45 MB [id number]) Skin Assessment Edema Assessment Right Leg Comments Mild pitting edema B LEs proximal ankle to foot Left Leg Comments Mild pitting edema B LEs proximal ankle to foot PT-OP-K Range of Motion Start: 04/07/19 12:57 Freq: Status: Active Protocol: Document 04/07/19 14:10 MB (Rec: 04/07/19 14:45 MB [id number]) Hip Goniometric Range of Motion Hip ROM Limitations Comments LLE hip flexor contraction movements with attempted AROM left LE. Right hip flexion with ability to briefly lift her right LE off the plinth in supine. Knee Goniometric Range of Motion Knee ROM Limitations Comments Extensor lag with attempted SLR on the right leg. She has arthritic joint changes. LLE spasming with all attempted AROM. Ankle and Foot Goniometric Range of Motion Ankle and Foot ROM Limitations Comments B ankles with limited ROM. Unable to test LLE d/t increased proximal joints flexor tone with attempted passive and active movement of foot. 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 PT-OP-M Strength Start: 04/07/19 12:57 Freq: Status: Active Protocol: Document 04/07/19 14:10 MB (Rec: 04/07/19 14:45 MB [id number]) Hip Strength Hip Manual Muscle Testing Right Flexion (L2) 2+ Poor+ Abduction 2- Poor- Comments Testing in supine. Pt is unable to perform any MMT on LLE d/t flexion tone easily provoked. Knee Strength Knee Manual Muscle Testing Right Flexion (S2) 3- Fair- Extension (L3) 3- Fair- Comments Testing in supine. Unable to perform MMT on LLE d/t flexion tone easily provoked. PT-OP-Q Treatments Start: 04/12/19 12:13 Freq: Status: Active Protocol: Document 05/17/19 11:14 MB (Rec: 05/17/19 12:07 MB [id number]) Cardio Equipment Recumbent Stepper (Sci-Fit) Duration (Minutes) 15 Resistance 2.0 Seat Position 7 Therapeutic Exercises Supine Exercises Pelvic realignment exercises Comments Pelvic realignment exercises, ball squeeze only, add to HEP PT-OP-S Aquatic Treatment Start: 04/12/19 12:13 Freq: Status: Active Protocol: Document 05/11/19 11:00 LJ (Rec: 05/11/19 15:52 LJ [id number]) Aquatics Treatment Pool Entry/Exit Pool Entry/Exit Method Lift Assistance Moderate Assistance Comments better control of LLE Water Walking forward with FWW Water Level Waist Level Walking Equipment FWW, ankle wts, AFO brace and wts on bottom of foot Level of Assistance Contact Guard Assistance, Verbal Cues Sideways Water Level Chest Level Walking Equipment Ankle Weight- 2.5# B Level of Assistance Standby Assistance,Verbal Cues Forwards Water Level Chest Level Walking Equipment Ankle Weight- 2.5# B + #5 under foot and AFO LLE Level of Assistance Contact Guard Assistance, Verbal Cues Comments white noodle Lower Extremity Exercises hip ab/ad Body Position Standing Water Level Waist Level Equipment Ankle Weight- 2.5# Comments at wall sit<>stand Details on table Water Level Chest Level Comments lg box for hand to push off, FWW, pool edge weight shifting Details hand hold at wall Body Position Standing Water Level Chest Level Equipment Ankle Weight- 2.5#, AFO + #5 Reps/Duration 2 min hip extension Details in corner Body Position Standing Water Level Chest Level Equipment Ankle Weight- 2.5# Reps/Duration 10 bilat Comments verbal and manual cues with mod assist Lower Extremity Stretches dorsi/plantar flexion Body Position Standing Water Level Chest Level Reps/Duration 2x45 sec B Comments therapist assisted hip flexor Body Position Standing Water Level Chest Level Reps/Duration 2 x45 sec B Comments at wall Balance static standing balance Details braced in corner Body Position Standing Water Level Chest Level Reps/Duration 4 min Comments occasional HH on wall; cues for posture and knee extension [place] Activities Equipment blue float, #2.5 wts; no AFO Duration 6 min Comments req mdA PT-OP-T Assessment and Plan Start: 04/07/19 12:57 Freq: Status: Active Protocol: Document 05/17/19 11:14 MB (Rec: 05/17/19 12:07 MB [id number]) Physical Therapy Assessment Rehab Potential Rehabilitation Potential Fair Evaluation Complexity Number of Personal Factors/Comorbidities 3 or More Number of Body Systems Impaired 1-2 Clinical Presentation at Evaluation Evolving Impairments Impairments Activity Tolerance,Balance, Coordination,Edema,Functional Activities,Functional Mobility ,Gait,Integument,Pain,Posture, ROM,Sensation,Soft Tissue Mobility,Strength,Tone, Transfers Other Impairments Decreased proprioception all left toes. R toes are intact. Decreased sensation to light touch all dermatomes LLE. Other Concerns Fall Risk High Barriers to Rehabilitation Multiple body systems affected including central ( progressive disease, MS; history of lumbar surgery, reports knee and foot changes (right ankle fusion) and knee for TKR) Goals 5 Veneer Clipper Helper Goal (LTG) Pt will perform TUG in less than 30 sec to improve functional I and decrease fall risk by 07/05/19. Four Veneer Clipper Helper Goal (LTG) Pt will gait train 50 feet with superv with RW by . 05/05/19 progressed towards goal. Pt uses rollator and makes one right turn, takes 1 minute. Her posture is much taller. She does con't 10 more feet gait and turn left before sitting in w/c 3 Veneer Clipper Helper Goal (LTG) Pt will perform progressive HEP with I by 07/05/19. 05/05/19 progressing towards goal--performing mini hip clearing for sit to stand prep 2 Group Home Goal (LTG) Pt will perform 5 repeated reps of sit<->stand with mod I without LE buckling to reduce fall risk by 07/05/19. 05/05/19 progressing towards goal: performs 3 reps with cues to push up from chair and pt holding onto PT's elbows 1 Veneer Clipper Helper Goal (LTG) Pt will maintain standing balance with mod I and use of LRAD for at least 45 sec to decrease fall risk and prepare for gait by 07/05/19. 05/05/19 perform 30 sec static standing with walker, able to shift weight and increase MARILYN with CGA to superv, 15 sec standing without AD and with CGA Progress Towards Goals Progress Towards Goals Progressing Toward Goals,Slow Progress due to Activity Tolerance Assessment Summary Assessment L SI area pain this date. Attempted pelvic realignment exercises, can only perform ball squeeze well--feet together and apart. Pt has trouble with getting in bed. Physical Therapy Plan Frequency and Duration Frequency of Treatment 2x/Week Duration of Treatment 8 weeks Plan of Care Start Date 04/07/19 Plan of Care End Date 06/07/19 Therapeutic Interventions Therapeutic Interventions Aquatic Therapy,Balance Training,Coordination Training ,Gait Training,Home Exercise Program,Manual Therapy, Neuromuscular Re-education, Patient/Caregiver Education, Self-Care/Home Management, Taping,Therapeutic Activities, Therapeutic Exercises, Wheelchair Management Modalities Cold Pack/Ice Massage,Electric Stimulation,Ultrasound Other Referrals/Consults Referrals/Consults Recommended Doctor follow-up about LE edema, 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 Con't strengthening, balance, transfers, and gait training.
--- NOTE | 2019-05-20 13:14 | PT.OTN ---
Current Diagnoses Multiple sclerosis (05/20/19) Weakness (05/20/19) Physical Therapy Treatment Note PT-OP-A Visit Information Start: 04/07/19 12:57 Freq: Status: Active Protocol: Document 05/20/19 10:15 LJ (Rec: 05/20/19 13:13 LJ [id number]) Out-Patient Physical Therapy Visit Information Visit Information Visit Type Aquatic Treatment Note Visit Start Time 10:15 Visit Stop Time 11:00 Total Visit Minutes 45 Visit Number 13/unlimited Number of DISTRICT SALES COORDINATOR Visits 1 PT-OP-B Current Condition Start: 04/07/19 12:57 Freq: Status: Active Protocol: Document 04/07/19 12:14 MB (Rec: 04/07/19 14:06 MB [id number]) Current Condition History of Current Condition Onset Date Progressive Current Complaints Pt reports gradual inability to walk and increasing buckling of her legs History of Current Condition Hx progressive MS, right ankle fusion and back surgery. Progressive trouble with walking Prior Treatments and Tests Spine and right ankle sxs, PT, pt states she just started a medication for LE spasming, cannot state what medication Treatment Goals Patient/Caregiver Goals To walk with walker. Her goal is to be able to walk outside. She first states that she would like to get back to walking a mile daily but she then appears to communicate that this is unlikely given her current presentaion in setting of progressive disease process. Prior Functional Status Baseline Function- ADL's Needs Assist Baseline Function- Mobility Needs Assist Baseline Function- Gait Currently, unable to walk d/t falling. Has been transferring and using w/c Baseline Function- Other Pt states she was walking with walker 3 weeks ago and when her legs collapsed and she fell. EMS had to help get her off of the floor. Current Functional Impairments (Reported) Functional Limitations- ADL's She reports mod I with showering while sitting on shower chair and use of rails as needed. Asst to tie her shoes. She performs ADL tasks sitting. Functional Limitations- Mobility/Gait Currently, unable to take a step without LEs buckling Personal Factors Other Personal Factors That May Effect Progressive disease, right Therapy/Recovery ankle fusion that pt states is failing and LLE flexion tone and spasming pain up to 9-10 /10 are barriers to PT. PT-OP-C Subjective Start: 04/07/19 12:57 Freq: Status: Active Protocol: Document 05/20/19 10:15 LJ (Rec: 05/20/19 13:13 LJ [id number]) OP-PT Subjective Patient Comments Patient Comments Pt reports that her left LE is more painful today than before. When questioned about her ambulation at home the pt said she was doing good but behind the pt her was shaking his head in disagreement. PT-OP-D Balance Start: 04/07/19 12:57 Freq: Status: Active Protocol: Document 04/07/19 14:10 MB (Rec: 04/07/19 14:45 MB [id number]) OP-PT Balance Assessment Sitting Balance Static Sitting Balance Ability Good Dynamic Sitting Balance Ability Good Sitting Balance Comments UE support for sitting balance and must hold onto plinth when bending down to reach for her shoe to put it on. Standing Balance Static Standing Balance Ability Poor Dynamic Standing Balance Ability Poor Standing Balance Comments Pt holds onto chair in front of her for static standing 10 sec. She presents with B leg fatigue/buckling and uses heavy UE support. Pt attempts to lift one foot and then the other but the single stance leg (both right and left when single stance) deanna, requiring her to sit. CGA. Balance Tests Other Other Balance Tests Performed Pt unable to tolerate sit to stand testing trial or other static standing tests d/t LE buckling. Morgan Fall Scale Copyright Permission PT-OP-G Mobility & Gait Start: 04/07/19 12:57 Freq: Status: Active Protocol: Document 04/12/19 12:01 MB (Rec: 04/12/19 12:13 MB [id number]) OP Mobility Evaluation Transfers Sit to Stand Cues to lock w/c and rollator with sit to stand trials from one to the another and back. Pt occ performs a SPT turn and occ performs transfer facing surface she is transferring to (NuStep or w/c), holding onto surface she is transferring to and then reaching around as she pivots or takes small steps to sit. Wheelchair Management Type of Wheelchair Standard w/c Assessment Details Pt holds one leg up with the other foot occ, pushes wheelchair with UEs OP Gait Assessment Gait Gait Assistance Required: Contact Guard Assist Assistive Devices Assistive Device Front Wheeled Walker,4 Wheeled Walker Gait Deviations General Gait Pattern Decreased Stride Length, Decreased Feet Clearance, Flexed Trunk,Narrow Based Gait ,Step-to Gait Factors Limiting Gait Function Factors Limiting Gait Function Abnormal Tonal Influences, Decreased Activity Tolerance, Decreased Strength,Limited Range of Motion,Pain Comments Gait Comments Gait trained 20'x4 and 40'x2; equally divided between use of her rollator and hospital 2WRW. Pt presents with increased knee flexion and buckling, greater on the right , right ankle fusion and little push off, improved left PF tone with WB, step-to gait , quick fatigue, occ c/o right calf discomfort. She has heavy use of UEs, flexed trunk . PT-OP-J Posture/Palpation/Skin Start: 04/07/19 12:57 Freq: Status: Active Protocol: Document 04/07/19 14:10 MB (Rec: 04/07/19 14:45 MB [id number]) Skin Assessment Edema Assessment Right Leg Comments Mild pitting edema B LEs proximal ankle to foot Left Leg Comments Mild pitting edema B LEs proximal ankle to foot PT-OP-K Range of Motion Start: 04/07/19 12:57 Freq: Status: Active Protocol: Document 04/07/19 14:10 MB (Rec: 04/07/19 14:45 MB [id number]) Hip Goniometric Range of Motion Hip ROM Limitations Comments LLE hip flexor contraction movements with attempted AROM left LE. Right hip flexion with ability to briefly lift her right LE off the plinth in supine. Knee Goniometric Range of Motion Knee ROM Limitations Comments Extensor lag with attempted SLR on the right leg. She has arthritic joint changes. LLE spasming with all attempted AROM. Ankle and Foot Goniometric Range of Motion Ankle and Foot ROM Limitations Comments B ankles with limited ROM. Unable to test LLE d/t increased proximal joints flexor tone with attempted passive and active movement of foot. 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 PT-OP-M Strength Start: 04/07/19 12:57 Freq: Status: Active Protocol: Document 04/07/19 14:10 MB (Rec: 04/07/19 14:45 MB [id number]) Hip Strength Hip Manual Muscle Testing Right Flexion (L2) 2+ Poor+ Abduction 2- Poor- Comments Testing in supine. Pt is unable to perform any MMT on LLE d/t flexion tone easily provoked. Knee Strength Knee Manual Muscle Testing Right Flexion (S2) 3- Fair- Extension (L3) 3- Fair- Comments Testing in supine. Unable to perform MMT on LLE d/t flexion tone easily provoked. PT-OP-Q Treatments Start: 04/12/19 12:13 Freq: Status: Active Protocol: Document 05/17/19 11:14 MB (Rec: 05/17/19 12:07 MB [id number]) Cardio Equipment Recumbent Stepper (Sci-Fit) Duration (Minutes) 15 Resistance 2.0 Seat Position 7 Therapeutic Exercises Supine Exercises Pelvic realignment exercises Comments Pelvic realignment exercises, ball squeeze only, add to HEP PT-OP-S Aquatic Treatment Start: 04/12/19 12:13 Freq: Status: Active Protocol: Document 05/20/19 10:15 LJ (Rec: 05/20/19 13:13 LJ [id number]) Aquatics Treatment Pool Entry/Exit Pool Entry/Exit Method Lift Assistance Moderate Assistance Comments cues to straighten R knee Water Walking forward with FWW Water Level Waist Level Level of Assistance Contact Guard Assistance, Verbal Cues Comments LOB posterior Backwards Water Level Waist Level Walking Equipment Large Noodle Level of Assistance Moderate Assistance Sideways Water Level Chest Level Level of Assistance Standby Assistance,Verbal Cues Forwards Water Level Chest Level Walking Equipment Large Noodle Level of Assistance Contact Guard Assistance, Verbal Cues Lower Extremity Exercises hacky sac Details at wall Body Position Standing Water Level Chest Level Reps/Duration 10 B ankle CCW CW Details at wall Body Position Standing Water Level Chest Level Reps/Duration 10 each TKE Details seated on lift Water Level Chest Level Reps/Duration 10 each side Comments 5 sec hold at end range Hip CCW CW Details standing on box at wall Body Position Hooklying Water Level Waist Level Reps/Duration 10B Comments assisted hip ab/ad Details at wall Body Position Standing Water Level Waist Level Comments LLE tighter sit<>stand Details at stairs Water Level Chest Level Reps/Duration 10 Comments use of UEs Assisted SLS Details at wall Body Position Standing Water Level Chest Level hip extension Details standing on box at wall Body Position Standing Water Level Waist Level Reps/Duration 10 bilat Comments verbal and manual cues with mod assist Lower Extremity Stretches ER rotators Body Position Standing Water Level Chest Level Reps/Duration 2x45 Comments LLE tighter dorsi/plantar flexion Body Position Standing Water Level Chest Level Reps/Duration 2x45 sec B Comments therapist assisted hip flexor Body Position Standing Water Level Chest Level Reps/Duration 2 x45 sec B Comments at wall HS Body Position Standing Water Level Chest Level Equipment Small Noodle Upper Extremity Exercises ab/ad, flex/ext Details braced at wall Body Position Standing Water Level Chest Level Reps/Duration 10x Spinal Exercises spinal extension Details spinal extension to correct forward lean Body Position Standing Water Level Chest Level Equipment Ankle Weight- 2.5# Reps/Duration 1 min Comments extend and hold position with handhold on wall Balance step ups on boxes Details 3 boxes 8, Water Level Chest Level Equipment noodle Reps/Duration 6x leading w/alternating LE Comments ModA with stailization static standing balance Details braced in corner Body Position Standing Water Level Chest Level Reps/Duration 2 min Comments occasional HH on wall; cues for posture and knee extension PT-OP-T Assessment and Plan Start: 04/07/19 12:57 Freq: Status: Active Protocol: Document 05/20/19 10:15 ETHAN (Rec: 05/20/19 13:13 ETHAN [id number]) Physical Therapy Assessment Rehab Potential Rehabilitation Potential Fair Evaluation Complexity Number of Personal Factors/Comorbidities 3 or More Number of Body Systems Impaired 1-2 Clinical Presentation at Evaluation Evolving Impairments Impairments Activity Tolerance,Balance, Coordination,Edema,Functional Activities,Functional Mobility ,Gait,Integument,Pain,Posture, ROM,Sensation,Soft Tissue Mobility,Strength,Tone, Transfers Other Impairments Decreased proprioception all left toes. R toes are intact. Decreased sensation to light touch all dermatomes LLE. Other Concerns Fall Risk High Barriers to Rehabilitation Multiple body systems affected including central ( progressive disease, MS; history of lumbar surgery, reports knee and foot changes (right ankle fusion) and knee for TKR) Goals 5 Mcc Goal (LTG) Pt will perform TUG in less than 30 sec to improve functional I and decrease fall risk by 07/05/19. Four Lead Auditor Goal (LTG) Pt will gait train 50 feet with superv with RW by . 05/05/19 progressed towards goal. Pt uses rollator and makes one right turn, takes 1 minute. Her posture is much taller. She does con't 10 more feet gait and turn left before sitting in w/c 3 Lead Auditor Goal (LTG) Pt will perform progressive HEP with I by 07/05/19. 05/05/19 progressing towards goal--performing mini hip clearing for sit to stand prep 2 Lead Auditor Goal (LTG) Pt will perform 5 repeated reps of sit<->stand with mod I without LE buckling to reduce fall risk by 07/05/19. 05/05/19 progressing towards goal: performs 3 reps with cues to push up from chair and pt holding onto PT's elbows 1 Lead Auditor Goal (LTG) Pt will maintain standing balance with mod I and use of LRAD for at least 45 sec to decrease fall risk and prepare for gait by 07/05/19. 05/05/19 perform 30 sec static standing with walker, able to shift weight and increase MARILYN with CGA to superv, 15 sec standing without AD and with CGA Progress Towards Goals Progress Towards Goals Progressing Toward Goals,Slow Progress due to Activity Tolerance Assessment Summary Assessment Pt improving with gait in pool . Responding better to verbal cues for posture. Significant limp with LLE appearing significantly shorter than RLE . Pt improving with LE control doing some of the exercises and ambulation w/o wts. Pt given HEP for knee extension and ER seated in chair. Physical Therapy Plan Frequency and Duration Frequency of Treatment 2x/Week Duration of Treatment 8 weeks Plan of Care Start Date 04/07/19 Plan of Care End Date 06/07/19 Therapeutic Interventions Therapeutic Interventions Aquatic Therapy,Balance Training,Coordination Training ,Gait Training,Home Exercise Program,Manual Therapy, Neuromuscular Re-education, Patient/Caregiver Education, Self-Care/Home Management, Taping,Therapeutic Activities, Therapeutic Exercises, Wheelchair Management Modalities Cold Pack/Ice Massage,Electric Stimulation,Ultrasound Other Referrals/Consults Referrals/Consults Recommended Doctor follow-up about LE edema, 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
--- NOTE | 2019-05-23 15:22 | PT.OTN ---
Current Diagnoses Multiple sclerosis (05/23/19) Weakness (05/23/19) Physical Therapy Treatment Note PT-OP-A Visit Information Start: 04/07/19 12:57 Freq: Status: Active Protocol: Document 05/23/19 12:15 LJ (Rec: 05/23/19 15:22 LJ [id number]) Out-Patient Physical Therapy Visit Information Visit Information Visit Type Aquatic Treatment Note Visit Start Time 12:15 Visit Stop Time 13:00 Total Visit Minutes 45 Visit Number 14/unlimited Number of DRILL PRESS TENDER Visits 2 PT-OP-B Current Condition Start: 04/07/19 12:57 Freq: Status: Active Protocol: Document 04/07/19 12:14 MB (Rec: 04/07/19 14:06 MB [id number]) Current Condition History of Current Condition Onset Date Progressive Current Complaints Pt reports gradual inability to walk and increasing buckling of her legs History of Current Condition Hx progressive MS, right ankle fusion and back surgery. Progressive trouble with walking Prior Treatments and Tests Spine and right ankle sxs, PT, pt states she just started a medication for LE spasming, cannot state what medication Treatment Goals Patient/Caregiver Goals To walk with walker. Her goal is to be able to walk outside. She first states that she would like to get back to walking a mile daily but she then appears to communicate that this is unlikely given her current presentaion in setting of progressive disease process. Prior Functional Status Baseline Function- ADL's Needs Assist Baseline Function- Mobility Needs Assist Baseline Function- Gait Currently, unable to walk d/t falling. Has been transferring and using w/c Baseline Function- Other Pt states she was walking with walker 3 weeks ago and when her legs collapsed and she fell. EMS had to help get her off of the floor. Current Functional Impairments (Reported) Functional Limitations- ADL's She reports mod I with showering while sitting on shower chair and use of rails as needed. Asst to tie her shoes. She performs ADL tasks sitting. Functional Limitations- Mobility/Gait Currently, unable to take a step without LEs buckling Personal Factors Other Personal Factors That May Effect Progressive disease, right Therapy/Recovery ankle fusion that pt states is failing and LLE flexion tone and spasming pain up to 9-10 /10 are barriers to PT. PT-OP-C Subjective Start: 04/07/19 12:57 Freq: Status: Active Protocol: Document 05/23/19 12:15 LJ (Rec: 05/23/19 15:22 LJ [id number]) OP-PT Subjective Patient Comments Patient Comments Pt states she is doing pretty well today. She has some increased pain in her low back but she states it isn't too bad. PT-OP-D Balance Start: 04/07/19 12:57 Freq: Status: Active Protocol: Document 04/07/19 14:10 MB (Rec: 04/07/19 14:45 MB [id number]) OP-PT Balance Assessment Sitting Balance Static Sitting Balance Ability Good Dynamic Sitting Balance Ability Good Sitting Balance Comments UE support for sitting balance and must hold onto plinth when bending down to reach for her shoe to put it on. Standing Balance Static Standing Balance Ability Poor Dynamic Standing Balance Ability Poor Standing Balance Comments Pt holds onto chair in front of her for static standing 10 sec. She presents with B leg fatigue/buckling and uses heavy UE support. Pt attempts to lift one foot and then the other but the single stance leg (both right and left when single stance) deanna, requiring her to sit. CGA. Balance Tests Other Other Balance Tests Performed Pt unable to tolerate sit to stand testing trial or other static standing tests d/t LE buckling. Morgan Fall Scale Copyright Permission PT-OP-G Mobility & Gait Start: 04/07/19 12:57 Freq: Status: Active Protocol: Document 04/12/19 12:01 MB (Rec: 04/12/19 12:13 MB [id number]) OP Mobility Evaluation Transfers Sit to Stand Cues to lock w/c and rollator with sit to stand trials from one to the another and back. Pt occ performs a SPT turn and occ performs transfer facing surface she is transferring to (NuStep or w/c), holding onto surface she is transferring to and then reaching around as she pivots or takes small steps to sit. Wheelchair Management Type of Wheelchair Standard w/c Assessment Details Pt holds one leg up with the other foot occ, pushes wheelchair with UEs OP Gait Assessment Gait Gait Assistance Required: Contact Guard Assist Assistive Devices Assistive Device Front Wheeled Walker,4 Wheeled Walker Gait Deviations General Gait Pattern Decreased Stride Length, Decreased Feet Clearance, Flexed Trunk,Narrow Based Gait ,Step-to Gait Factors Limiting Gait Function Factors Limiting Gait Function Abnormal Tonal Influences, Decreased Activity Tolerance, Decreased Strength,Limited Range of Motion,Pain Comments Gait Comments Gait trained 20'x4 and 40'x2; equally divided between use of her rollator and hospital 2WRW. Pt presents with increased knee flexion and buckling, greater on the right , right ankle fusion and little push off, improved left PF tone with WB, step-to gait , quick fatigue, occ c/o right calf discomfort. She has heavy use of UEs, flexed trunk . PT-OP-J Posture/Palpation/Skin Start: 04/07/19 12:57 Freq: Status: Active Protocol: Document 04/07/19 14:10 MB (Rec: 04/07/19 14:45 MB [id number]) Skin Assessment Edema Assessment Right Leg Comments Mild pitting edema B LEs proximal ankle to foot Left Leg Comments Mild pitting edema B LEs proximal ankle to foot PT-OP-K Range of Motion Start: 04/07/19 12:57 Freq: Status: Active Protocol: Document 04/07/19 14:10 MB (Rec: 04/07/19 14:45 MB [id number]) Hip Goniometric Range of Motion Hip ROM Limitations Comments LLE hip flexor contraction movements with attempted AROM left LE. Right hip flexion with ability to briefly lift her right LE off the plinth in supine. Knee Goniometric Range of Motion Knee ROM Limitations Comments Extensor lag with attempted SLR on the right leg. She has arthritic joint changes. LLE spasming with all attempted AROM. Ankle and Foot Goniometric Range of Motion Ankle and Foot ROM Limitations Comments B ankles with limited ROM. Unable to test LLE d/t increased proximal joints flexor tone with attempted passive and active movement of foot. 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 PT-OP-M Strength Start: 04/07/19 12:57 Freq: Status: Active Protocol: Document 04/07/19 14:10 MB (Rec: 04/07/19 14:45 MB [id number]) Hip Strength Hip Manual Muscle Testing Right Flexion (L2) 2+ Poor+ Abduction 2- Poor- Comments Testing in supine. Pt is unable to perform any MMT on LLE d/t flexion tone easily provoked. Knee Strength Knee Manual Muscle Testing Right Flexion (S2) 3- Fair- Extension (L3) 3- Fair- Comments Testing in supine. Unable to perform MMT on LLE d/t flexion tone easily provoked. PT-OP-Q Treatments Start: 04/12/19 12:13 Freq: Status: Active Protocol: Document 05/17/19 11:14 MB (Rec: 05/17/19 12:07 MB [id number]) Cardio Equipment Recumbent Stepper (Sci-Fit) Duration (Minutes) 15 Resistance 2.0 Seat Position 7 Therapeutic Exercises Supine Exercises Pelvic realignment exercises Comments Pelvic realignment exercises, ball squeeze only, add to HEP PT-OP-S Aquatic Treatment Start: 04/12/19 12:13 Freq: Status: Active Protocol: Document 05/23/19 12:15 LJ (Rec: 05/23/19 15:22 LJ [id number]) Aquatics Treatment Pool Entry/Exit Pool Entry/Exit Method Lift Assistance Moderate Assistance Water Walking forward with FWW Level of Assistance Verbal Cues Comments no LOB Sideways Water Level Chest Level Level of Assistance Standby Assistance,Verbal Cues Comments hh on wall Forwards Water Level Chest Level Walking Equipment Large Noodle Level of Assistance Contact Guard Assistance, Verbal Cues Lower Extremity Exercises ankle CCW CW Details at wall Body Position Standing Water Level Chest Level Reps/Duration 10 each TKE Details seated on lift Water Level Chest Level Reps/Duration 10 each side Comments 5 sec hold at end range hip ab/ad Details at wall Body Position Standing Water Level Waist Level Lower Extremity Stretches dorsi/plantar flexion Body Position Standing Water Level Chest Level Reps/Duration 2x45 sec B Comments therapist assisted hip flexor Body Position Standing Water Level Chest Level Reps/Duration 2 x45 sec B Comments at wall HS Body Position Standing Water Level Chest Level Equipment Small Noodle Balance static standing balance Details braced in corner Body Position Standing Water Level Chest Level Reps/Duration 2 min Comments occasional HH on wall; cues for posture and knee extension [place] Activities [place] Activities Bicycle Equipment blue float, white noodle Duration 8 min Comments no wts this session. PT-OP-T Assessment and Plan Start: 04/07/19 12:57 Freq: Status: Active Protocol: Document 05/23/19 12:15 LJ (Rec: 05/23/19 15:22 LJ [id number]) Physical Therapy Assessment Rehab Potential Rehabilitation Potential Fair Evaluation Complexity Number of Personal Factors/Comorbidities 3 or More Number of Body Systems Impaired 1-2 Clinical Presentation at Evaluation Evolving Impairments Impairments Activity Tolerance,Balance, Coordination,Edema,Functional Activities,Functional Mobility ,Gait,Integument,Pain,Posture, ROM,Sensation,Soft Tissue Mobility,Strength,Tone, Transfers Other Impairments Decreased proprioception all left toes. R toes are intact. Decreased sensation to light touch all dermatomes LLE. Other Concerns Fall Risk High Barriers to Rehabilitation Multiple body systems affected including central ( progressive disease, MS; history of lumbar surgery, reports knee and foot changes (right ankle fusion) and knee for TKR) Goals 5 Wig Maker Goal (LTG) Pt will perform TUG in less than 30 sec to improve functional I and decrease fall risk by 07/05/19. [facility] Home Goal (LTG) Pt will gait train 50 feet with superv with RW by . 05/05/19 progressed towards goal. Pt uses rollator and makes one right turn, takes 1 minute. Her posture is much taller. She does con't 10 more feet gait and turn left before sitting in w/c 3 Wig Maker Goal (LTG) Pt will perform progressive HEP with I by 07/05/19. 05/05/19 progressing towards goal--performing mini hip clearing for sit to stand prep 2 Wig Maker Goal (LTG) Pt will perform 5 repeated reps of sit<->stand with mod I without LE buckling to reduce fall risk by 07/05/19. 05/05/19 progressing towards goal: performs 3 reps with cues to push up from chair and pt holding onto PT's elbows 1 Wig Maker Goal (LTG) Pt will maintain standing balance with mod I and use of LRAD for at least 45 sec to decrease fall risk and prepare for gait by 07/05/19. 05/05/19 perform 30 sec static standing with walker, able to shift weight and increase MARILYN with CGA to superv, 15 sec standing without AD and with CGA Progress Towards Goals Progress Towards Goals Progressing Toward Goals,Slow Progress due to Activity Tolerance Assessment Summary Assessment Pt continues to improve with gait and balance activities. Did not require wts on ankles this session. In deep water she was able to stabilize with noodle and lg belt Physical Therapy Plan Frequency and Duration Frequency of Treatment 2x/Week Duration of Treatment 8 weeks Plan of Care Start Date 04/07/19 Plan of Care End Date 06/07/19 Therapeutic Interventions Therapeutic Interventions Aquatic Therapy,Balance Training,Coordination Training ,Gait Training,Home Exercise Program,Manual Therapy, Neuromuscular Re-education, Patient/Caregiver Education, Self-Care/Home Management, Taping,Therapeutic Activities, Therapeutic Exercises, Wheelchair Management Modalities Cold Pack/Ice Massage,Electric Stimulation,Ultrasound Other Referrals/Consults Referrals/Consults Recommended Doctor follow-up about LE edema, 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
--- NOTE | 2019-05-25 11:15 | PT.OTN ---
Current Diagnoses Multiple sclerosis (05/25/19) Weakness (05/25/19) Physical Therapy Treatment Note PT-OP-A Visit Information Start: 04/07/19 12:57 Freq: Status: Active Protocol: Document 05/25/19 10:32 SP (Rec: 05/25/19 11:27 SP [id number]) Out-Patient Physical Therapy Visit Information Visit Information Visit Type Treatment Note Visit Start Time 10:32 Visit Stop Time 11:15 Total Visit Minutes 43 Visit Number 15/unlimited Number of ELECTRIC BATH ATTENDANT Visits 3 PT-OP-B Current Condition Start: 04/07/19 12:57 Freq: Status: Active Protocol: Document 04/07/19 12:14 MB (Rec: 04/07/19 14:06 MB [id number]) Current Condition History of Current Condition Onset Date Progressive Current Complaints Pt reports gradual inability to walk and increasing buckling of her legs History of Current Condition Hx progressive MS, right ankle fusion and back surgery. Progressive trouble with walking Prior Treatments and Tests Spine and right ankle sxs, PT, pt states she just started a medication for LE spasming, cannot state what medication Treatment Goals Patient/Caregiver Goals To walk with walker. Her goal is to be able to walk outside. She first states that she would like to get back to walking a mile daily but she then appears to communicate that this is unlikely given her current presentaion in setting of progressive disease process. Prior Functional Status Baseline Function- ADL's Needs Assist Baseline Function- Mobility Needs Assist Baseline Function- Gait Currently, unable to walk d/t falling. Has been transferring and using w/c Baseline Function- Other Pt states she was walking with walker 3 weeks ago and when her legs collapsed and she fell. EMS had to help get her off of the floor. Current Functional Impairments (Reported) Functional Limitations- ADL's She reports mod I with showering while sitting on shower chair and use of rails as needed. Asst to tie her shoes. She performs ADL tasks sitting. Functional Limitations- Mobility/Gait Currently, unable to take a step without LEs buckling Personal Factors Other Personal Factors That May Effect Progressive disease, right Therapy/Recovery ankle fusion that pt states is failing and LLE flexion tone and spasming pain up to 9-10 /10 are barriers to PT. PT-OP-C Subjective Start: 04/07/19 12:57 Freq: Status: Active Protocol: Document 05/25/19 10:32 SP (Rec: 05/25/19 11:27 SP [id number]) OP-PT Subjective Patient Comments Patient Comments Pt stated had a fall couple of days ago: stood at washing machine to transfer clothes from washer to dryer and when reached back for chair realized didn't lock the brakes and wc rolled backwards and fell to onto knees then her bottom. was not home at the time and was able to back scoot to bedroom pushing wc then lock the brakes and pull herself up into the chair. PT-OP-D Balance Start: 04/07/19 12:57 Freq: Status: Active Protocol: Document 04/07/19 14:10 MB (Rec: 04/07/19 14:45 MB [id number]) OP-PT Balance Assessment Sitting Balance Static Sitting Balance Ability Good Dynamic Sitting Balance Ability Good Sitting Balance Comments UE support for sitting balance and must hold onto plinth when bending down to reach for her shoe to put it on. Standing Balance Static Standing Balance Ability Poor Dynamic Standing Balance Ability Poor Standing Balance Comments Pt holds onto chair in front of her for static standing 10 sec. She presents with B leg fatigue/buckling and uses heavy UE support. Pt attempts to lift one foot and then the other but the single stance leg (both right and left when single stance) deanna, requiring her to sit. CGA. Balance Tests Other Other Balance Tests Performed Pt unable to tolerate sit to stand testing trial or other static standing tests d/t LE buckling. Morgan Fall Scale Copyright Permission PT-OP-G Mobility & Gait Start: 04/07/19 12:57 Freq: Status: Active Protocol: Document 04/12/19 12:01 MB (Rec: 04/12/19 12:13 MB [id number]) OP Mobility Evaluation Transfers Sit to Stand Cues to lock w/c and rollator with sit to stand trials from one to the another and back. Pt occ performs a SPT turn and occ performs transfer facing surface she is transferring to (NuStep or w/c), holding onto surface she is transferring to and then reaching around as she pivots or takes small steps to sit. Wheelchair Management Type of Wheelchair Standard w/c Assessment Details Pt holds one leg up with the other foot occ, pushes wheelchair with UEs OP Gait Assessment Gait Gait Assistance Required: Contact Guard Assist Assistive Devices Assistive Device Front Wheeled Walker,4 Wheeled Walker Gait Deviations General Gait Pattern Decreased Stride Length, Decreased Feet Clearance, Flexed Trunk,Narrow Based Gait ,Step-to Gait Factors Limiting Gait Function Factors Limiting Gait Function Abnormal Tonal Influences, Decreased Activity Tolerance, Decreased Strength,Limited Range of Motion,Pain Comments Gait Comments Gait trained 20'x4 and 40'x2; equally divided between use of her rollator and hospital 2WRW. Pt presents with increased knee flexion and buckling, greater on the right , right ankle fusion and little push off, improved left PF tone with WB, step-to gait , quick fatigue, occ c/o right calf discomfort. She has heavy use of UEs, flexed trunk . PT-OP-J Posture/Palpation/Skin Start: 04/07/19 12:57 Freq: Status: Active Protocol: Document 04/07/19 14:10 MB (Rec: 04/07/19 14:45 MB [id number]) Skin Assessment Edema Assessment Right Leg Comments Mild pitting edema B LEs proximal ankle to foot Left Leg Comments Mild pitting edema B LEs proximal ankle to foot PT-OP-K Range of Motion Start: 04/07/19 12:57 Freq: Status: Active Protocol: Document 04/07/19 14:10 MB (Rec: 04/07/19 14:45 MB [id number]) Hip Goniometric Range of Motion Hip ROM Limitations Comments LLE hip flexor contraction movements with attempted AROM left LE. Right hip flexion with ability to briefly lift her right LE off the plinth in supine. Knee Goniometric Range of Motion Knee ROM Limitations Comments Extensor lag with attempted SLR on the right leg. She has arthritic joint changes. LLE spasming with all attempted AROM. Ankle and Foot Goniometric Range of Motion Ankle and Foot ROM Limitations Comments B ankles with limited ROM. Unable to test LLE d/t increased proximal joints flexor tone with attempted passive and active movement of foot. 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 PT-OP-M Strength Start: 04/07/19 12:57 Freq: Status: Active Protocol: Document 04/07/19 14:10 MB (Rec: 04/07/19 14:45 MB [id number]) Hip Strength Hip Manual Muscle Testing Right Flexion (L2) 2+ Poor+ Abduction 2- Poor- Comments Testing in supine. Pt is unable to perform any MMT on LLE d/t flexion tone easily provoked. Knee Strength Knee Manual Muscle Testing Right Flexion (S2) 3- Fair- Extension (L3) 3- Fair- Comments Testing in supine. Unable to perform MMT on LLE d/t flexion tone easily provoked. PT-OP-Q Treatments Start: 04/12/19 12:13 Freq: Status: Active Protocol: Document 05/25/19 10:32 SP (Rec: 05/25/19 11:27 SP [id number]) Cardio Equipment Recumbent Stepper (Sci-Fit) Duration (Minutes) 10 Resistance 2.0 Seat Position 7 Therapeutic Exercises Supine Exercises Pelvic realignment exercises Equipment Used small ball Reps/Minutes 5 sec x5, 2 sets Comments Pelvic realignment exercises, ball squeeze only, add to HEP bridge Supine Exercise Name double leg bridge Reps/Minutes 2x5 Comments cued for core activiation, to assist scooting trunk in bed away from EOB heel slide Resistance AROM L and R Reps/Minutes 2x5 Comments support provided for RLE knee flexion Sitting Exercises sit to stand Sitting Exercise Name hip hinge wt shift sit to stand Resistance AROM, UE support Reps/Minutes 2x3 Comments from raised table Therapeutic Activity Therapeutic Activity Multiple transfers for reassessing goals Name SPT Reps/Minutes x3 Comments wt shift forward, UE support, full upright posture use of 4WW, education and occasional cues for 4ww and w/c locking for safety prior to stand and sit. Gait Training Gait Activity Gait trials with rollator Description forward gait Device Used 4ww Level of Assistance CGA Surface level Distance/Duration 42, 62 ft Treatment Focus increase upright posture and foot clearance Comments cued for upright posture for RLE foot clearance/ advancement and not to large step over step to for risk of LLE buckling, decreased step length tiring as distance progressed. PT-OP-S Aquatic Treatment Start: 04/12/19 12:13 Freq: Status: Active Protocol: Document 05/23/19 12:15 LJ (Rec: 05/23/19 15:22 LJ [id number]) Aquatics Treatment Pool Entry/Exit Pool Entry/Exit Method Lift Assistance Moderate Assistance Water Walking forward with FWW Level of Assistance Verbal Cues Comments no LOB Sideways Water Level Chest Level Level of Assistance Standby Assistance,Verbal Cues Comments hh on wall Forwards Water Level Chest Level Walking Equipment Large Noodle Level of Assistance Contact Guard Assistance, Verbal Cues Lower Extremity Exercises ankle CCW CW Details at wall Body Position Standing Water Level Chest Level Reps/Duration 10 each TKE Details seated on lift Water Level Chest Level Reps/Duration 10 each side Comments 5 sec hold at end range hip ab/ad Details at wall Body Position Standing Water Level Waist Level Lower Extremity Stretches dorsi/plantar flexion Body Position Standing Water Level Chest Level Reps/Duration 2x45 sec B Comments therapist assisted hip flexor Body Position Standing Water Level Chest Level Reps/Duration 2 x45 sec B Comments at wall HS Body Position Standing Water Level Chest Level Equipment Small Noodle Balance static standing balance Details braced in corner Body Position Standing Water Level Chest Level Reps/Duration 2 min Comments occasional HH on wall; cues for posture and knee extension Howell Activities Howell Activities Bicycle Equipment blue float, white noodle Duration 8 min Comments no wts this session. PT-OP-T Assessment and Plan Start: 04/07/19 12:57 Freq: Status: Active Protocol: Document 05/25/19 10:32 SP (Rec: 05/25/19 11:27 SP [id number]) Physical Therapy Assessment Goals 5 Paperhanger Goal (LTG) Pt will perform TUG in less than 30 sec to improve functional I and decrease fall risk by 07/05/19. Four Correction Goal (LTG) Pt will gait train 50 feet with superv with RW by . 05/05/19 progressed towards goal. Pt uses rollator and makes one right turn, takes 1 minute. Her posture is much taller. She does con't 10 more feet gait and turn left before sitting in w/c 3 Paperhanger Goal (LTG) Pt will perform progressive HEP with I by 07/05/19. 05/05/19 progressing towards goal--performing mini hip clearing for sit to stand prep 2 Paperhanger Goal (LTG) Pt will perform 5 repeated reps of sit<->stand with mod I without LE buckling to reduce fall risk by 07/05/19. 05/05/19 progressing towards goal: performs 3 reps with cues to push up from chair and pt holding onto PT's elbows 1 Correction Goal (LTG) Pt will maintain standing balance with mod I and use of LRAD for at least 45 sec to decrease fall risk and prepare for gait by 07/05/19. 05/05/19 perform 30 sec static standing with walker, able to shift weight and increase MARILYN with CGA to superv, 15 sec standing without AD and with CGA Assessment Summary Assessment Pt was able to complete gait x2 distances today. Pt demonstrated abilitiy to complete heel slides without assist today LLE and good recall to pelvic alignment add with small ball. Pt reported L side of w/c pressing on lateral thigh at times bhargavi during add squeeze so puts padding lateral thigh for comfort. Pt reduction end of tx from 6-7/10 to 5/10 in LB. Pt demonstrated increased activity endurance today. Cued for quad set during WB on LLE to assist increase upright posture to advance RLE, tired toward end of 2nd gait distance. Physical Therapy Plan Frequency and Duration Frequency of Treatment 2x/Week Duration of Treatment 8 weeks Plan of Care Start Date 04/07/19 Plan of Care End Date 06/07/19 Therapeutic Interventions Therapeutic Interventions Aquatic Therapy,Balance Training,Coordination Training ,Gait Training,Home Exercise Program,Manual Therapy, Neuromuscular Re-education, Patient/Caregiver Education, Self-Care/Home Management, Taping,Therapeutic Activities, Therapeutic Exercises, Wheelchair Management Modalities Cold Pack/Ice Massage,Electric Stimulation,Ultrasound Next Visit Focus/Plan Next Note Type Treatment Note Next Visit Plan Con't safety and increased endurance with transfers to decrease fall risk. Progress strengthening, balance, transfers, and gait training.
--- NOTE | 2019-05-30 15:02 | PT.OTN ---
Current Diagnoses Multiple sclerosis (05/30/19) Weakness (05/30/19) Physical Therapy Treatment Note PT-OP-A Visit Information Start: 04/07/19 12:57 Freq: Status: Active Protocol: Document 05/30/19 12:30 LJ (Rec: 05/30/19 15:02 LJ [email or web address]) Out-Patient Physical Therapy Visit Information Visit Information Visit Type Aquatic Treatment Note Visit Start Time 12:30 Visit Stop Time 13:15 Total Visit Minutes 45 Visit Number 16/unlimited Number of RAILROAD CONDUCTOR Visits 4 PT-OP-B Current Condition Start: 04/07/19 12:57 Freq: Status: Active Protocol: Document 04/07/19 12:14 MB (Rec: 04/07/19 14:06 MB [id number]) Current Condition History of Current Condition Onset Date Progressive Current Complaints Pt reports gradual inability to walk and increasing buckling of her legs History of Current Condition Hx progressive MS, right ankle fusion and back surgery. Progressive trouble with walking Prior Treatments and Tests Spine and right ankle sxs, PT, pt states she just started a medication for LE spasming, cannot state what medication Treatment Goals Patient/Caregiver Goals To walk with walker. Her goal is to be able to walk outside. She first states that she would like to get back to walking a mile daily but she then appears to communicate that this is unlikely given her current presentaion in setting of progressive disease process. Prior Functional Status Baseline Function- ADL's Needs Assist Baseline Function- Mobility Needs Assist Baseline Function- Gait Currently, unable to walk d/t falling. Has been transferring and using w/c Baseline Function- Other Pt states she was walking with walker 3 weeks ago and when her legs collapsed and she fell. EMS had to help get her off of the floor. Current Functional Impairments (Reported) Functional Limitations- ADL's She reports mod I with showering while sitting on shower chair and use of rails as needed. Asst to tie her shoes. She performs ADL tasks sitting. Functional Limitations- Mobility/Gait Currently, unable to take a step without LEs buckling Personal Factors Other Personal Factors That May Effect Progressive disease, right Therapy/Recovery ankle fusion that pt states is failing and LLE flexion tone and spasming pain up to 9-10 /10 are barriers to PT. PT-OP-C Subjective Start: 04/07/19 12:57 Freq: Status: Active Protocol: Document 05/30/19 12:30 LJ (Rec: 05/30/19 15:02 LJ [email or web address]) OP-PT Subjective Patient Comments Patient Comments Pt states she did not hurt herself when she fell but this therapist noticed a healing bruise on left shoulder. Pt states she is moving stronger and using FWW at home more. States she feels that the pool sessions are doing the best for her PT-OP-D Balance Start: 04/07/19 12:57 Freq: Status: Active Protocol: Document 04/07/19 14:10 MB (Rec: 04/07/19 14:45 MB [id number]) OP-PT Balance Assessment Sitting Balance Static Sitting Balance Ability Good Dynamic Sitting Balance Ability Good Sitting Balance Comments UE support for sitting balance and must hold onto plinth when bending down to reach for her shoe to put it on. Standing Balance Static Standing Balance Ability Poor Dynamic Standing Balance Ability Poor Standing Balance Comments Pt holds onto chair in front of her for static standing 10 sec. She presents with B leg fatigue/buckling and uses heavy UE support. Pt attempts to lift one foot and then the other but the single stance leg (both right and left when single stance) deanna, requiring her to sit. CGA. Balance Tests Other Other Balance Tests Performed Pt unable to tolerate sit to stand testing trial or other static standing tests d/t LE buckling. Morgan Fall Scale Copyright Permission PT-OP-G Mobility & Gait Start: 04/07/19 12:57 Freq: Status: Active Protocol: Document 04/12/19 12:01 MB (Rec: 04/12/19 12:13 MB [id number]) OP Mobility Evaluation Transfers Sit to Stand Cues to lock w/c and rollator with sit to stand trials from one to the another and back. Pt occ performs a SPT turn and occ performs transfer facing surface she is transferring to (NuStep or w/c), holding onto surface she is transferring to and then reaching around as she pivots or takes small steps to sit. Wheelchair Management Type of Wheelchair Standard w/c Assessment Details Pt holds one leg up with the other foot occ, pushes wheelchair with UEs OP Gait Assessment Gait Gait Assistance Required: Contact Guard Assist Assistive Devices Assistive Device Front Wheeled Walker,4 Wheeled Walker Gait Deviations General Gait Pattern Decreased Stride Length, Decreased Feet Clearance, Flexed Trunk,Narrow Based Gait ,Step-to Gait Factors Limiting Gait Function Factors Limiting Gait Function Abnormal Tonal Influences, Decreased Activity Tolerance, Decreased Strength,Limited Range of Motion,Pain Comments Gait Comments Gait trained 20'x4 and 40'x2; equally divided between use of her rollator and hospital 2WRW. Pt presents with increased knee flexion and buckling, greater on the right , right ankle fusion and little push off, improved left PF tone with WB, step-to gait , quick fatigue, occ c/o right calf discomfort. She has heavy use of UEs, flexed trunk . PT-OP-J Posture/Palpation/Skin Start: 04/07/19 12:57 Freq: Status: Active Protocol: Document 04/07/19 14:10 MB (Rec: 04/07/19 14:45 MB [id number]) Skin Assessment Edema Assessment Right Leg Comments Mild pitting edema B LEs proximal ankle to foot Left Leg Comments Mild pitting edema B LEs proximal ankle to foot PT-OP-K Range of Motion Start: 04/07/19 12:57 Freq: Status: Active Protocol: Document 04/07/19 14:10 MB (Rec: 04/07/19 14:45 MB [id number]) Hip Goniometric Range of Motion Hip ROM Limitations Comments LLE hip flexor contraction movements with attempted AROM left LE. Right hip flexion with ability to briefly lift her right LE off the plinth in supine. Knee Goniometric Range of Motion Knee ROM Limitations Comments Extensor lag with attempted SLR on the right leg. She has arthritic joint changes. LLE spasming with all attempted AROM. Ankle and Foot Goniometric Range of Motion Ankle and Foot ROM Limitations Comments B ankles with limited ROM. Unable to test LLE d/t increased proximal joints flexor tone with attempted passive and active movement of foot. 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 PT-OP-M Strength Start: 04/07/19 12:57 Freq: Status: Active Protocol: Document 04/07/19 14:10 MB (Rec: 04/07/19 14:45 MB [id number]) Hip Strength Hip Manual Muscle Testing Right Flexion (L2) 2+ Poor+ Abduction 2- Poor- Comments Testing in supine. Pt is unable to perform any MMT on LLE d/t flexion tone easily provoked. Knee Strength Knee Manual Muscle Testing Right Flexion (S2) 3- Fair- Extension (L3) 3- Fair- Comments Testing in supine. Unable to perform MMT on LLE d/t flexion tone easily provoked. PT-OP-Q Treatments Start: 04/12/19 12:13 Freq: Status: Active Protocol: Document 05/25/19 10:32 SP (Rec: 05/25/19 11:27 SP [id number]) Cardio Equipment Recumbent Stepper (Sci-Fit) Duration (Minutes) 10 Resistance 2.0 Seat Position 7 Therapeutic Exercises Supine Exercises Pelvic realignment exercises Equipment Used small ball Reps/Minutes 5 sec x5, 2 sets Comments Pelvic realignment exercises, ball squeeze only, add to HEP bridge Supine Exercise Name double leg bridge Reps/Minutes 2x5 Comments cued for core activiation, to assist scooting trunk in bed away from EOB heel slide Resistance AROM L and R Reps/Minutes 2x5 Comments support provided for RLE knee flexion Sitting Exercises sit to stand Sitting Exercise Name hip hinge wt shift sit to stand Resistance AROM, UE support Reps/Minutes 2x3 Comments from raised table Therapeutic Activity Therapeutic Activity Multiple transfers for reassessing goals Name SPT Reps/Minutes x3 Comments wt shift forward, UE support, full upright posture use of 4WW, education and occasional cues for 4ww and w/c locking for safety prior to stand and sit. Gait Training Gait Activity Gait trials with rollator Description forward gait Device Used 4ww Level of Assistance CGA Surface level Distance/Duration 42, 62 ft Treatment Focus increase upright posture and foot clearance Comments cued for upright posture for RLE foot clearance/ advancement and not to large step over step to for risk of LLE buckling, decreased step length tiring as distance progressed. PT-OP-S Aquatic Treatment Start: 04/12/19 12:13 Freq: Status: Active Protocol: Document 05/30/19 12:30 LJ (Rec: 05/30/19 15:02 LJ [email or web address]) Aquatics Treatment Pool Entry/Exit Pool Entry/Exit Method Lift Assistance Contact Guard Assistance Water Walking Sideways Water Level Chest Level Walking Equipment Large Noodle Level of Assistance Standby Assistance Forwards Water Level Chest Level Walking Equipment Large Noodle Level of Assistance Standby Assistance,Minimal Assistance Comments several LOB Lower Extremity Exercises hacky sac Details at wall Body Position Standing Water Level Chest Level Equipment Ankle Weight- 2.5# Reps/Duration 10 B TKE Details seated on lift Water Level Chest Level Equipment Ankle Weight- 2.5# Reps/Duration 10 each side Comments 5 sec hold at end range Hip CCW CW Details standing on box at wall Water Level Waist Level Equipment Ankle Weight- 2.5# Reps/Duration 10B Comments cues for extension hip ab/ad Details at wall Body Position Standing Water Level Waist Level Equipment Ankle Weight- 2.5# sit<>stand Details on box Water Level Waist Level Reps/Duration 10 Comments use of UEs on wall weight shifting Body Position Standing Water Level Chest Level Equipment Ankle Weight- 2.5# Reps/Duration 2 min hip extension Body Position Standing Water Level Chest Level Equipment Ankle Weight- 2.5# Reps/Duration 10 bilat Lower Extremity Stretches ER rotators Body Position Standing Water Level Chest Level Reps/Duration 2x45 Comments LLE tighter hip flexor Body Position Standing Water Level Chest Level Reps/Duration 2 x45 sec B Comments at wall HS Body Position Standing Water Level Chest Level Equipment Small Noodle Upper Extremity Exercises push down Details at wall Body Position Standing Water Level Chest Level Equipment sm BBs Reps/Duration 10 ab/ad, flex/ext Details freestanding Body Position Standing Water Level Chest Level Equipment sm BBs Reps/Duration 10x Balance step ups on boxes Details 3 boxes 8, Water Level Chest Level Reps/Duration 6x leading w/alternating LE Comments Hetal with stailization static standing balance Body Position Standing Water Level Chest Level Reps/Duration 2 min Comments occasional HH on wall; cues for posture and knee extension [place] Activities [place] Activities Bicycle Equipment lg belt, sm BBs Duration 7 min Comments #2.5 wts PT-OP-T Assessment and Plan Start: 04/07/19 12:57 Freq: Status: Active Protocol: Document 05/30/19 12:30 ETHAN (Rec: 05/30/19 15:02 ETHAN [email or web address]) Physical Therapy Assessment Rehab Potential Rehabilitation Potential Fair Evaluation Complexity Number of Personal Factors/Comorbidities 3 or More Number of Body Systems Impaired 1-2 Clinical Presentation at Evaluation Evolving Impairments Impairments Activity Tolerance,Balance, Coordination,Edema,Functional Activities,Functional Mobility ,Gait,Integument,Pain,Posture, ROM,Sensation,Soft Tissue Mobility,Strength,Tone, Transfers Other Impairments Decreased proprioception all left toes. R toes are intact. Decreased sensation to light touch all dermatomes LLE. Other Concerns Fall Risk High Barriers to Rehabilitation Multiple body systems affected including central ( progressive disease, MS; history of lumbar surgery, reports knee and foot changes (right ankle fusion) and knee for TKR) Goals 5 Diesel Power Shovel Operator Goal (LTG) Pt will perform TUG in less than 30 sec to improve functional I and decrease fall risk by 07/05/19. Four Diesel Power Shovel Operator Goal (LTG) Pt will gait train 50 feet with superv with RW by . 05/05/19 progressed towards goal. Pt uses rollator and makes one right turn, takes 1 minute. Her posture is much taller. She does con't 10 more feet gait and turn left before sitting in w/c 3 Mcc Goal (LTG) Pt will perform progressive HEP with I by 07/05/19. 05/05/19 progressing towards goal--performing mini hip clearing for sit to stand prep 2 Mcc Goal (LTG) Pt will perform 5 repeated reps of sit<->stand with mod I without LE buckling to reduce fall risk by 07/05/19. 05/05/19 progressing towards goal: performs 3 reps with cues to push up from chair and pt holding onto PT's elbows 1 Mcc Goal (LTG) Pt will maintain standing balance with mod I and use of LRAD for at least 45 sec to decrease fall risk and prepare for gait by 07/05/19. 05/05/19 perform 30 sec static standing with walker, able to shift weight and increase MARILYN with CGA to superv, 15 sec standing without AD and with CGA Assessment Summary Assessment Pt had improved balance this session being able to walk with minimum support of noodle . Posture is improving as is tolerance for strengthening exercises. Transfers into<>out of lift and WC more controlled and stable. Weights used on ankles for strengthening in deep water as well as shallow water. Pt had no issues with core stabilization in deep water today. Physical Therapy Plan Frequency and Duration Frequency of Treatment 2x/Week Duration of Treatment 8 weeks Plan of Care Start Date 04/07/19 Plan of Care End Date 06/07/19 Therapeutic Interventions Therapeutic Interventions Aquatic Therapy,Balance Training,Coordination Training ,Gait Training,Home Exercise Program,Manual Therapy, Neuromuscular Re-education, Patient/Caregiver Education, Self-Care/Home Management, Taping,Therapeutic Activities, Therapeutic Exercises, Wheelchair Management Modalities Cold Pack/Ice Massage,Electric Stimulation,Ultrasound Next Visit Focus/Plan Next Note Type Treatment Note Next Visit Plan For pool, continue to increase strengthening exercises with proper form and as tolerated. Include UE strengthening as well as LEs. Begin core strengthening with stretch cords if tolerated.
--- NOTE | 2019-06-02 10:51 | PT.OTN ---
Current Diagnoses Multiple sclerosis (06/02/19) Weakness (06/02/19) Physical Therapy Treatment Note PT-OP-A Visit Information Start: 04/07/19 12:57 Freq: Status: Active Protocol: Document 06/02/19 09:05 MB (Rec: 06/02/19 09:45 MB [id number]) Out-Patient Physical Therapy Visit Information Visit Information Visit Type Treatment Note Visit Start Time 09:05 Visit Stop Time 09:45 Total Visit Minutes 40 Visit Number 17/unlimited Number of SHOP CLERK Visits 5 PT-OP-B Current Condition Start: 04/07/19 12:57 Freq: Status: Active Protocol: Document 04/07/19 12:14 MB (Rec: 04/07/19 14:06 MB [id number]) Current Condition History of Current Condition Onset Date Progressive Current Complaints Pt reports gradual inability to walk and increasing buckling of her legs History of Current Condition Hx progressive MS, right ankle fusion and back surgery. Progressive trouble with walking Prior Treatments and Tests Spine and right ankle sxs, PT, pt states she just started a medication for LE spasming, cannot state what medication Treatment Goals Patient/Caregiver Goals To walk with walker. Her goal is to be able to walk outside. She first states that she would like to get back to walking a mile daily but she then appears to communicate that this is unlikely given her current presentaion in setting of progressive disease process. Prior Functional Status Baseline Function- ADL's Needs Assist Baseline Function- Mobility Needs Assist Baseline Function- Gait Currently, unable to walk d/t falling. Has been transferring and using w/c Baseline Function- Other Pt states she was walking with walker 3 weeks ago and when her legs collapsed and she fell. EMS had to help get her off of the floor. Current Functional Impairments (Reported) Functional Limitations- ADL's She reports mod I with showering while sitting on shower chair and use of rails as needed. Asst to tie her shoes. She performs ADL tasks sitting. Functional Limitations- Mobility/Gait Currently, unable to take a step without LEs buckling Personal Factors Other Personal Factors That May Effect Progressive disease, right Therapy/Recovery ankle fusion that pt states is failing and LLE flexion tone and spasming pain up to 9-10 /10 are barriers to PT. PT-OP-C Subjective Start: 04/07/19 12:57 Freq: Status: Active Protocol: Document 06/02/19 09:05 MB (Rec: 06/02/19 09:45 MB [id number]) OP-PT Subjective Patient Comments Patient Comments Pt states that she is doing better. She is trying to walk more with her rollator. She walked into the gym with her rollator. She thinks that she will be able to discharge the end of June. Patient Reported Progress Improving PT-OP-D Balance Start: 04/07/19 12:57 Freq: Status: Active Protocol: Document 04/07/19 14:10 MB (Rec: 04/07/19 14:45 MB [id number]) OP-PT Balance Assessment Sitting Balance Static Sitting Balance Ability Good Dynamic Sitting Balance Ability Good Sitting Balance Comments UE support for sitting balance and must hold onto plinth when bending down to reach for her shoe to put it on. Standing Balance Static Standing Balance Ability Poor Dynamic Standing Balance Ability Poor Standing Balance Comments Pt holds onto chair in front of her for static standing 10 sec. She presents with B leg fatigue/buckling and uses heavy UE support. Pt attempts to lift one foot and then the other but the single stance leg (both right and left when single stance) deanna, requiring her to sit. CGA. Balance Tests Other Other Balance Tests Performed Pt unable to tolerate sit to stand testing trial or other static standing tests d/t LE buckling. Morgan Fall Scale Copyright Permission PT-OP-G Mobility & Gait Start: 04/07/19 12:57 Freq: Status: Active Protocol: Document 04/12/19 12:01 MB (Rec: 04/12/19 12:13 MB [id number]) OP Mobility Evaluation Transfers Sit to Stand Cues to lock w/c and rollator with sit to stand trials from one to the another and back. Pt occ performs a SPT turn and occ performs transfer facing surface she is transferring to (NuStep or w/c), holding onto surface she is transferring to and then reaching around as she pivots or takes small steps to sit. Wheelchair Management Type of Wheelchair Standard w/c Assessment Details Pt holds one leg up with the other foot occ, pushes wheelchair with UEs OP Gait Assessment Gait Gait Assistance Required: Contact Guard Assist Assistive Devices Assistive Device Front Wheeled Walker,4 Wheeled Walker Gait Deviations General Gait Pattern Decreased Stride Length, Decreased Feet Clearance, Flexed Trunk,Narrow Based Gait ,Step-to Gait Factors Limiting Gait Function Factors Limiting Gait Function Abnormal Tonal Influences, Decreased Activity Tolerance, Decreased Strength,Limited Range of Motion,Pain Comments Gait Comments Gait trained 20'x4 and 40'x2; equally divided between use of her rollator and hospital 2WRW. Pt presents with increased knee flexion and buckling, greater on the right , right ankle fusion and little push off, improved left PF tone with WB, step-to gait , quick fatigue, occ c/o right calf discomfort. She has heavy use of UEs, flexed trunk . PT-OP-J Posture/Palpation/Skin Start: 04/07/19 12:57 Freq: Status: Active Protocol: Document 04/07/19 14:10 MB (Rec: 04/07/19 14:45 MB [id number]) Skin Assessment Edema Assessment Right Leg Comments Mild pitting edema B LEs proximal ankle to foot Left Leg Comments Mild pitting edema B LEs proximal ankle to foot PT-OP-K Range of Motion Start: 04/07/19 12:57 Freq: Status: Active Protocol: Document 04/07/19 14:10 MB (Rec: 04/07/19 14:45 MB [id number]) Hip Goniometric Range of Motion Hip ROM Limitations Comments LLE hip flexor contraction movements with attempted AROM left LE. Right hip flexion with ability to briefly lift her right LE off the plinth in supine. Knee Goniometric Range of Motion Knee ROM Limitations Comments Extensor lag with attempted SLR on the right leg. She has arthritic joint changes. LLE spasming with all attempted AROM. Ankle and Foot Goniometric Range of Motion Ankle and Foot ROM Limitations Comments B ankles with limited ROM. Unable to test LLE d/t increased proximal joints flexor tone with attempted passive and active movement of foot. 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 PT-OP-M Strength Start: 04/07/19 12:57 Freq: Status: Active Protocol: Document 04/07/19 14:10 MB (Rec: 04/07/19 14:45 MB [id number]) Hip Strength Hip Manual Muscle Testing Right Flexion (L2) 2+ Poor+ Abduction 2- Poor- Comments Testing in supine. Pt is unable to perform any MMT on LLE d/t flexion tone easily provoked. Knee Strength Knee Manual Muscle Testing Right Flexion (S2) 3- Fair- Extension (L3) 3- Fair- Comments Testing in supine. Unable to perform MMT on LLE d/t flexion tone easily provoked. PT-OP-Q Treatments Start: 04/12/19 12:13 Freq: Status: Active Protocol: Document 06/02/19 09:05 MB (Rec: 06/02/19 09:45 MB [id number]) Cardio Equipment Recumbent Stepper (Sci-Fit) Duration (Minutes) 15 Resistance 1.3 Gait Training Gait Activity Multiple gait activities to assess speed, balance, transfers pre-gait Comments TUG, gait distance, pre-gait activites of sit to stand and static standing with rollator, pt with much improvement. Ongoing leg length discrepancy and LE changes. May consider trying heel lift in left shoe. PT-OP-S Aquatic Treatment Start: 04/12/19 12:13 Freq: Status: Active Protocol: Document 05/30/19 12:30 LJ (Rec: 05/30/19 15:02 LJ [id number]) Aquatics Treatment Pool Entry/Exit Pool Entry/Exit Method Lift Assistance Contact Guard Assistance Water Walking Sideways Water Level Chest Level Walking Equipment Large Noodle Level of Assistance Standby Assistance Forwards Water Level Chest Level Walking Equipment Large Noodle Level of Assistance Standby Assistance,Minimal Assistance Comments several LOB Lower Extremity Exercises hacky sac Details at wall Body Position Standing Water Level Chest Level Equipment Ankle Weight- 2.5# Reps/Duration 10 B TKE Details seated on lift Water Level Chest Level Equipment Ankle Weight- 2.5# Reps/Duration 10 each side Comments 5 sec hold at end range Hip CCW CW Details standing on box at wall Water Level Waist Level Equipment Ankle Weight- 2.5# Reps/Duration 10B Comments cues for extension hip ab/ad Details at wall Body Position Standing Water Level Waist Level Equipment Ankle Weight- 2.5# sit<>stand Details on box Water Level Waist Level Reps/Duration 10 Comments use of UEs on wall weight shifting Body Position Standing Water Level Chest Level Equipment Ankle Weight- 2.5# Reps/Duration 2 min hip extension Body Position Standing Water Level Chest Level Equipment Ankle Weight- 2.5# Reps/Duration 10 bilat Lower Extremity Stretches ER rotators Body Position Standing Water Level Chest Level Reps/Duration 2x45 Comments LLE tighter hip flexor Body Position Standing Water Level Chest Level Reps/Duration 2 x45 sec B Comments at wall HS Body Position Standing Water Level Chest Level Equipment Small Noodle Upper Extremity Exercises push down Details at wall Body Position Standing Water Level Chest Level Equipment sm BBs Reps/Duration 10 ab/ad, flex/ext Details freestanding Body Position Standing Water Level Chest Level Equipment sm BBs Reps/Duration 10x Balance step ups on boxes Details 3 boxes 8, Water Level Chest Level Reps/Duration 6x leading w/alternating LE Comments Hetal with stailization static standing balance Body Position Standing Water Level Chest Level Reps/Duration 2 min Comments occasional HH on wall; cues for posture and knee extension [place] Activities [place] Activities Bicycle Equipment lg belt, sm BBs Duration 7 min Comments #2.5 wts PT-OP-T Assessment and Plan Start: 04/07/19 12:57 Freq: Status: Active Protocol: Document 06/02/19 09:05 MB (Rec: 06/02/19 09:45 MB [id number]) Physical Therapy Assessment Rehab Potential Rehabilitation Potential Fair Evaluation Complexity Number of Personal Factors/Comorbidities 3 or More Number of Body Systems Impaired 1-2 Clinical Presentation at Evaluation Evolving Impairments Impairments Activity Tolerance,Balance, Coordination,Edema,Functional Activities,Functional Mobility ,Gait,Integument,Pain,Posture, ROM,Sensation,Soft Tissue Mobility,Strength,Tone, Transfers Other Impairments Decreased proprioception all left toes. R toes are intact. Decreased sensation to light touch all dermatomes LLE. Other Concerns Fall Risk High Barriers to Rehabilitation Multiple body systems affected including central ( progressive disease, MS; history of lumbar surgery, reports knee and foot changes (right ankle fusion) and knee for TKR) Goals 8 Clinical Asst Goal (LTG) Pt will perform aquatic HEP with I by 07/11/19. LTG Duration 6 weeks 7 [facility] Goal (LTG) Pt will demonstrate safe pool entry and exit with asst from by 07/11/19. LTG Duration 6 weeks 6 Clinical Asst Goal (LTG) Pt will deny falls for 6 weeks by 07/11/19. LTG Duration 6 weeks 5 Clinical Asst Goal (LTG) Pt will perform TUG in less than 25 sec to improve functional I and decrease fall risk by 07/11/19. 06/02/19: pt performed TUG in 30 sec LTG Duration 6 weeks Four Clinical Asst Goal (LTG) Pt will gait train 75 feet with superv with RW by . 06/02/19 pt performs gait training with superv with rollator 50 feet LTG Duration 6 weeks 3 [facility] Goal (LTG) Pt will perform progressive HEP with I by 07/11/19. 06/02/19: Pt is perform mini sit to stands and ball squeezes LTG Duration 6 weeks 2 [facility] Goal (LTG) Pt will perform 5 repeated reps of sit<->site inspector 13 sec with mod I without LE buckling to reduce fall risk by . 06/02/19: pt performs 4 reps sit to stand with UE support in 13 sec LTG Duration 6 weeks 1 [facility] Goal (LTG) Pt will maintain standing balance with mod I and use of LRAD for at least 45 sec to decrease fall risk and prepare for gait by 07/05/19. 06/02/19: MET. pt is able to stand 45 sec with rollator and without rollator asst with superv Assessment Summary Assessment Pt has progressed towards all PT goals. She would like to con't with getting the pool for exercise after she is finished with PT in June. PT added a goal for aquatic therapist to teach pt and how to safely enter the exit the pool. Also, goal for HEP for aquatic exercises. Pt and state that they will check out the NuStep at the pool gyms as well. Physical Therapy Plan Frequency and Duration Frequency of Treatment 2x/Week Duration of Treatment 6 weeks Plan of Care Start Date 06/02/19 Plan of Care End Date 07/11/19 Therapeutic Interventions Therapeutic Interventions Aquatic Therapy,Balance Training,Coordination Training ,Gait Training,Home Exercise Program,Manual Therapy, Neuromuscular Re-education, Patient/Caregiver Education, Self-Care/Home Management, Taping,Therapeutic Activities, Therapeutic Exercises, Wheelchair Management Modalities Cold Pack/Ice Massage,Electric Stimulation,Ultrasound Next Visit Focus/Plan Next Note Type Treatment Note Next Visit Plan Con't to progress gait, strengthening in land PT. Initiate further balance and functional mobility exercises.
--- NOTE | 2019-06-02 10:52 | PT.OPPOC ---
Current Diagnoses Multiple sclerosis (06/02/19) Weakness (06/02/19) Visit Care Team Role Provider Type James Perez MD Primary Care Provider Physician Specialty: Family Practice Address: [address] [place] [address], [id number] Email: [email or web address] Gabrielle Marinelli MD Attending Provider Non-Staff Specialty: Neurology Address: [address] [place] [address], [id number] Email: Plan Of Care PT-OP-T Assessment and Plan Start: 04/07/19 12:57 Freq: Status: Active Protocol: Document 06/02/19 09:05 MB (Rec: 06/02/19 09:45 MB [id number]) Physical Therapy Assessment Rehab Potential Rehabilitation Potential Fair Evaluation Complexity Number of Personal Factors/Comorbidities 3 or More Number of Body Systems Impaired 1-2 Clinical Presentation at Evaluation Evolving Impairments Impairments Activity Tolerance,Balance, Coordination,Edema,Functional Activities,Functional Mobility ,Gait,Integument,Pain,Posture, ROM,Sensation,Soft Tissue Mobility,Strength,Tone, Transfers Other Impairments Decreased proprioception all left toes. R toes are intact. Decreased sensation to light touch all dermatomes LLE. Other Concerns Fall Risk High Barriers to Rehabilitation Multiple body systems affected including central ( progressive disease, MS; history of lumbar surgery, reports knee and foot changes (right ankle fusion) and knee for TKR) Goals 8 Detention Goal (LTG) Pt will perform aquatic HEP with I by 07/11/19. LTG Duration 6 weeks 7 Detention Goal (LTG) Pt will demonstrate safe pool entry and exit with asst from by 07/11/19. LTG Duration 6 weeks 6 Detention Goal (LTG) Pt will deny falls for 6 weeks by 07/11/19. LTG Duration 6 weeks 5 [employer] Goal (LTG) Pt will perform TUG in less than 25 sec to improve functional I and decrease fall risk by 07/11/19. 06/02/19: pt performed TUG in 30 sec LTG Duration 6 weeks Four [employer] Goal (LTG) Pt will gait train 75 feet with superv with RW by . 06/02/19 pt performs gait training with superv with rollator 50 feet LTG Duration 6 weeks 3 Detention Goal (LTG) Pt will perform progressive HEP with I by 07/11/19. 06/02/19: Pt is perform mini sit to stands and ball squeezes LTG Duration 6 weeks 2 Detention Goal (LTG) Pt will perform 5 repeated reps of sit<->early childhood education coordinator 13 sec with mod I without LE buckling to reduce fall risk by . 06/02/19: pt performs 4 reps sit to stand with UE support in 13 sec LTG Duration 6 weeks 1 Detention Goal (LTG) Pt will maintain standing balance with mod I and use of LRAD for at least 45 sec to decrease fall risk and prepare for gait by 07/05/19. 06/02/19: MET. pt is able to stand 45 sec with rollator and without rollator asst with superv Assessment Summary Assessment Pt has progressed towards all PT goals. She would like to con't with getting the pool for exercise after she is finished with PT in June. PT added a goal for aquatic therapist to teach pt and how to safely enter the exit the pool. Also, goal for HEP for aquatic exercises. Pt and state that they will check out the NuStep at the pool gyms as well. Physical Therapy Plan Frequency and Duration Frequency of Treatment 2x/Week Duration of Treatment 6 weeks Plan of Care Start Date 06/02/19 Plan of Care End Date 07/11/19 Therapeutic Interventions Therapeutic Interventions Aquatic Therapy,Balance Training,Coordination Training ,Gait Training,Home Exercise Program,Manual Therapy, Neuromuscular Re-education, Patient/Caregiver Education, Self-Care/Home Management, Taping,Therapeutic Activities, Therapeutic Exercises, Wheelchair Management Modalities Cold Pack/Ice Massage,Electric Stimulation,Ultrasound Next Visit Focus/Plan Next Note Type Treatment Note Next Visit Plan Con't to progress gait, strengthening in land PT. Initiate further balance and functional mobility exercises. Plan of Care Dates Plan of Care Start Date 06/02/19 Plan of Care End Date 07/11/19
--- NOTE | 2019-06-13 16:18 | PT.OTN ---
Current Diagnoses Multiple sclerosis (06/13/19) Weakness (06/13/19) Physical Therapy Treatment Note PT-OP-A Visit Information Start: 04/07/19 12:57 Freq: Status: Active Protocol: Document 06/13/19 11:45 LJ (Rec: 06/13/19 16:18 LJ [id number]) Out-Patient Physical Therapy Visit Information Visit Information Visit Type Aquatic Treatment Note Visit Start Time 11:45 Visit Stop Time 12:30 Total Visit Minutes 45 Visit Number 18/unlimited Number of TOBACCO FEEDER CATCHER Visits 1 PT-OP-B Current Condition Start: 04/07/19 12:57 Freq: Status: Active Protocol: Document 04/07/19 12:14 MB (Rec: 04/07/19 14:06 MB [id number]) Current Condition History of Current Condition Onset Date Progressive Current Complaints Pt reports gradual inability to walk and increasing buckling of her legs History of Current Condition Hx progressive MS, right ankle fusion and back surgery. Progressive trouble with walking Prior Treatments and Tests Spine and right ankle sxs, PT, pt states she just started a medication for LE spasming, cannot state what medication Treatment Goals Patient/Caregiver Goals To walk with walker. Her goal is to be able to walk outside. She first states that she would like to get back to walking a mile daily but she then appears to communicate that this is unlikely given her current presentaion in setting of progressive disease process. Prior Functional Status Baseline Function- ADL's Needs Assist Baseline Function- Mobility Needs Assist Baseline Function- Gait Currently, unable to walk d/t falling. Has been transferring and using w/c Baseline Function- Other Pt states she was walking with walker 3 weeks ago and when her legs collapsed and she fell. EMS had to help get her off of the floor. Current Functional Impairments (Reported) Functional Limitations- ADL's She reports mod I with showering while sitting on shower chair and use of rails as needed. Asst to tie her shoes. She performs ADL tasks sitting. Functional Limitations- Mobility/Gait Currently, unable to take a step without LEs buckling Personal Factors Other Personal Factors That May Effect Progressive disease, right Therapy/Recovery ankle fusion that pt states is failing and LLE flexion tone and spasming pain up to 9-10 /10 are barriers to PT. PT-OP-C Subjective Start: 04/07/19 12:57 Freq: Status: Active Protocol: Document 06/13/19 11:45 LJ (Rec: 06/13/19 16:18 LJ [id number]) OP-PT Subjective Patient Comments Patient Comments Pt reports she is doing better and is walking around the house with the walker and hasn 't used the WC for a couple of day. Climbed several stairs at her daughter's house while there for a visit. PT-OP-D Balance Start: 04/07/19 12:57 Freq: Status: Active Protocol: Document 04/07/19 14:10 MB (Rec: 04/07/19 14:45 MB [id number]) OP-PT Balance Assessment Sitting Balance Static Sitting Balance Ability Good Dynamic Sitting Balance Ability Good Sitting Balance Comments UE support for sitting balance and must hold onto plinth when bending down to reach for her shoe to put it on. Standing Balance Static Standing Balance Ability Poor Dynamic Standing Balance Ability Poor Standing Balance Comments Pt holds onto chair in front of her for static standing 10 sec. She presents with B leg fatigue/buckling and uses heavy UE support. Pt attempts to lift one foot and then the other but the single stance leg (both right and left when single stance) deanna, requiring her to sit. CGA. Balance Tests Other Other Balance Tests Performed Pt unable to tolerate sit to stand testing trial or other static standing tests d/t LE buckling. Morgan Fall Scale Copyright Permission PT-OP-G Mobility & Gait Start: 04/07/19 12:57 Freq: Status: Active Protocol: Document 04/12/19 12:01 MB (Rec: 04/12/19 12:13 MB [id number]) OP Mobility Evaluation Transfers Sit to Stand Cues to lock w/c and rollator with sit to stand trials from one to the another and back. Pt occ performs a SPT turn and occ performs transfer facing surface she is transferring to (NuStep or w/c), holding onto surface she is transferring to and then reaching around as she pivots or takes small steps to sit. Wheelchair Management Type of Wheelchair Standard w/c Assessment Details Pt holds one leg up with the other foot occ, pushes wheelchair with UEs OP Gait Assessment Gait Gait Assistance Required: Contact Guard Assist Assistive Devices Assistive Device Front Wheeled Walker,4 Wheeled Walker Gait Deviations General Gait Pattern Decreased Stride Length, Decreased Feet Clearance, Flexed Trunk,Narrow Based Gait ,Step-to Gait Factors Limiting Gait Function Factors Limiting Gait Function Abnormal Tonal Influences, Decreased Activity Tolerance, Decreased Strength,Limited Range of Motion,Pain Comments Gait Comments Gait trained 20'x4 and 40'x2; equally divided between use of her rollator and hospital 2WRW. Pt presents with increased knee flexion and buckling, greater on the right , right ankle fusion and little push off, improved left PF tone with WB, step-to gait , quick fatigue, occ c/o right calf discomfort. She has heavy use of UEs, flexed trunk . PT-OP-J Posture/Palpation/Skin Start: 04/07/19 12:57 Freq: Status: Active Protocol: Document 04/07/19 14:10 MB (Rec: 04/07/19 14:45 MB [id number]) Skin Assessment Edema Assessment Right Leg Comments Mild pitting edema B LEs proximal ankle to foot Left Leg Comments Mild pitting edema B LEs proximal ankle to foot PT-OP-K Range of Motion Start: 04/07/19 12:57 Freq: Status: Active Protocol: Document 04/07/19 14:10 MB (Rec: 04/07/19 14:45 MB [id number]) Hip Goniometric Range of Motion Hip ROM Limitations Comments LLE hip flexor contraction movements with attempted AROM left LE. Right hip flexion with ability to briefly lift her right LE off the plinth in supine. Knee Goniometric Range of Motion Knee ROM Limitations Comments Extensor lag with attempted SLR on the right leg. She has arthritic joint changes. LLE spasming with all attempted AROM. Ankle and Foot Goniometric Range of Motion Ankle and Foot ROM Limitations Comments B ankles with limited ROM. Unable to test LLE d/t increased proximal joints flexor tone with attempted passive and active movement of foot. 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 PT-OP-M Strength Start: 04/07/19 12:57 Freq: Status: Active Protocol: Document 04/07/19 14:10 MB (Rec: 04/07/19 14:45 MB [id number]) Hip Strength Hip Manual Muscle Testing Right Flexion (L2) 2+ Poor+ Abduction 2- Poor- Comments Testing in supine. Pt is unable to perform any MMT on LLE d/t flexion tone easily provoked. Knee Strength Knee Manual Muscle Testing Right Flexion (S2) 3- Fair- Extension (L3) 3- Fair- Comments Testing in supine. Unable to perform MMT on LLE d/t flexion tone easily provoked. PT-OP-Q Treatments Start: 04/12/19 12:13 Freq: Status: Active Protocol: Document 06/02/19 09:05 MB (Rec: 06/02/19 09:45 MB [id number]) Cardio Equipment Recumbent Stepper (Sci-Fit) Duration (Minutes) 15 Resistance 1.3 Gait Training Gait Activity Multiple gait activities to assess speed, balance, transfers pre-gait Comments TUG, gait distance, pre-gait activites of sit to stand and static standing with rollator, pt with much improvement. Ongoing leg length discrepancy and LE changes. May consider trying heel lift in left shoe. PT-OP-S Aquatic Treatment Start: 04/12/19 12:13 Freq: Status: Active Protocol: Document 06/13/19 11:45 LJ (Rec: 06/13/19 16:18 LJ [id number]) Aquatics Treatment Pool Entry/Exit Pool Entry/Exit Method Lift Assistance Contact Guard Assistance Water Walking What Cheer September Water Level Chest Level Level of Assistance Standby Assistance Backwards Water Level Waist Level Level of Assistance Moderate Assistance Sideways Water Level Chest Level Level of Assistance Standby Assistance Forwards Water Level Chest Level Level of Assistance Standby Assistance Lower Extremity Exercises stairs Details pool stairs Reps/Duration 3x3 steps Comments step to gait; railings HS curls Body Position Standing Water Level Chest Level Equipment Ankle Weight- 2.5# Reps/Duration 12 bilat TKE Details at wall Water Level Chest Level Equipment Ankle Weight- 2.5# Reps/Duration 10 each side Comments 5 sec hold at end range Hip CCW CW Details standing on box at wall Water Level Waist Level Equipment Ankle Weight- 2.5# Reps/Duration 10B Comments cues for extension hip ab/ad Details at wall Body Position Standing Water Level Waist Level Equipment Ankle Weight- 2.5# hip extension Body Position Standing Water Level Chest Level Equipment Ankle Weight- 2.5# Reps/Duration 10 bilat Lower Extremity Stretches ER rotators Body Position Standing Water Level Chest Level Reps/Duration 2x45 hip flexor Body Position Standing Water Level Chest Level Reps/Duration 2 x45 sec B Comments at wall HS Body Position Standing Water Level Chest Level Equipment Small Noodle Upper Extremity Exercises ab/ad, flex/ext Details freestanding Body Position Standing Water Level Chest Level Equipment sm BBs Reps/Duration 10x Balance step ups on boxes Details 3 boxes 8 Water Level Waist Level Reps/Duration 8x leading w/alternating LE Comments Hetal with stailization Deweese Activities Deweese Activities Bicycle Equipment lg belt Duration 12 min Comments #2.5 wts PT-OP-T Assessment and Plan Start: 04/07/19 12:57 Freq: Status: Active Protocol: Document 06/13/19 11:45 ETHAN (Rec: 06/13/19 16:18 ETHAN [id number]) Physical Therapy Assessment Rehab Potential Rehabilitation Potential Fair Evaluation Complexity Number of Personal Factors/Comorbidities 3 or More Number of Body Systems Impaired 1-2 Clinical Presentation at Evaluation Evolving Impairments Impairments Activity Tolerance,Balance, Coordination,Edema,Functional Activities,Functional Mobility ,Gait,Integument,Pain,Posture, ROM,Sensation,Soft Tissue Mobility,Strength,Tone, Transfers Other Impairments Decreased proprioception all left toes. R toes are intact. Decreased sensation to light touch all dermatomes LLE. Other Concerns Fall Risk High Barriers to Rehabilitation Multiple body systems affected including central ( progressive disease, MS; history of lumbar surgery, reports knee and foot changes (right ankle fusion) and knee for TKR) Goals 8 State Archivist Goal (LTG) Pt will perform aquatic HEP with I by 07/11/19. LTG Duration 6 weeks 7 State Archivist Goal (LTG) Pt will demonstrate safe pool entry and exit with asst from by 07/11/19. LTG Duration 6 weeks 6 State Archivist Goal (LTG) Pt will deny falls for 6 weeks by 07/11/19. LTG Duration 6 weeks 5 Assisted Goal (LTG) Pt will perform TUG in less than 25 sec to improve functional I and decrease fall risk by 07/11/19. 06/02/19: pt performed TUG in 30 sec LTG Duration 6 weeks Four State Archivist Goal (LTG) Pt will gait train 75 feet with superv with RW by . 06/02/19 pt performs gait training with superv with rollator 50 feet LTG Duration 6 weeks 3 Assisted Goal (LTG) Pt will perform progressive HEP with I by 07/11/19. 06/02/19: Pt is perform mini sit to stands and ball squeezes LTG Duration 6 weeks 2 State Archivist Goal (LTG) Pt will perform 5 repeated reps of sit<->machine lead burner 13 sec with mod I without LE buckling to reduce fall risk by . 06/02/19: pt performs 4 reps sit to stand with UE support in 13 sec LTG Duration 6 weeks 1 State Archivist Goal (LTG) Pt will maintain standing balance with mod I and use of LRAD for at least 45 sec to decrease fall risk and prepare for gait by 07/05/19. 06/02/19: MET. pt is able to stand 45 sec with rollator and without rollator asst with superv Progress Towards Goals Progress Towards Goals Progressing Toward Goals,Slow Progress due to Activity Tolerance Assessment Summary Assessment Pt walked into pool from locker room with 4WW. Transfered SBA to lift chair. Pt has improved with strength, coordination, and balance in pool. No longer using support or needing more than SBA for walking activities. Gait mechanics has imporved as well . Pt wearing shoe on LLE helps with balance and gait. Pt tolerated weights on LEs for all exercises including deep water without the need for BB floatation assist. Pts daughter assisting pt to locker room to assist with showering. Physical Therapy Plan Frequency and Duration Frequency of Treatment 2x/Week Duration of Treatment 6 weeks Plan of Care Start Date 06/02/19 Plan of Care End Date 07/11/19 Therapeutic Interventions Therapeutic Interventions Aquatic Therapy,Balance Training,Coordination Training ,Gait Training,Home Exercise Program,Manual Therapy, Neuromuscular Re-education, Patient/Caregiver Education, Self-Care/Home Management, Taping,Therapeutic Activities, Therapeutic Exercises, Wheelchair Management Modalities Cold Pack/Ice Massage,Electric Stimulation,Ultrasound Next Visit Focus/Plan Next Note Type Treatment Note Next Visit Plan Con't to progress gait, strengthening in land PT. Initiate further balance and functional mobility exercises.
--- NOTE | 2019-06-16 11:16 | PT.OTN ---
Current Diagnoses Multiple sclerosis (06/16/19) Weakness (06/16/19) Physical Therapy Treatment Note PT-OP-A Visit Information Start: 04/07/19 12:57 Freq: Status: Active Protocol: Document 06/16/19 10:33 MB (Rec: 06/16/19 11:13 MB [id number]) Out-Patient Physical Therapy Visit Information Visit Information Visit Type Treatment Note Visit Start Time 10:33 Visit Stop Time 11:13 Total Visit Minutes 40 Visit Number 18/unlimited Number of STEEL POURER HELPER Visits 5 PT-OP-B Current Condition Start: 04/07/19 12:57 Freq: Status: Active Protocol: Document 04/07/19 12:14 MB (Rec: 04/07/19 14:06 MB [id number]) Current Condition History of Current Condition Onset Date Progressive Current Complaints Pt reports gradual inability to walk and increasing buckling of her legs History of Current Condition Hx progressive MS, right ankle fusion and back surgery. Progressive trouble with walking Prior Treatments and Tests Spine and right ankle sxs, PT, pt states she just started a medication for LE spasming, cannot state what medication Treatment Goals Patient/Caregiver Goals To walk with walker. Her goal is to be able to walk outside. She first states that she would like to get back to walking a mile daily but she then appears to communicate that this is unlikely given her current presentaion in setting of progressive disease process. Prior Functional Status Baseline Function- ADL's Needs Assist Baseline Function- Mobility Needs Assist Baseline Function- Gait Currently, unable to walk d/t falling. Has been transferring and using w/c Baseline Function- Other Pt states she was walking with walker 3 weeks ago and when her legs collapsed and she fell. EMS had to help get her off of the floor. Current Functional Impairments (Reported) Functional Limitations- ADL's She reports mod I with showering while sitting on shower chair and use of rails as needed. Asst to tie her shoes. She performs ADL tasks sitting. Functional Limitations- Mobility/Gait Currently, unable to take a step without LEs buckling Personal Factors Other Personal Factors That May Effect Progressive disease, right Therapy/Recovery ankle fusion that pt states is failing and LLE flexion tone and spasming pain up to 9-10 /10 are barriers to PT. PT-OP-C Subjective Start: 04/07/19 12:57 Freq: Status: Active Protocol: Document 06/16/19 10:33 MB (Rec: 06/16/19 11:13 MB [id number]) OP-PT Subjective Patient Comments Patient Comments Pt states that she is doing better. She managed the steps at her daughter's house with rail and her grandson' assist. She con't to state that she would like to con't with aquatic exercise at d/c. PT-OP-D Balance Start: 04/07/19 12:57 Freq: Status: Active Protocol: Document 04/07/19 14:10 MB (Rec: 04/07/19 14:45 MB [id number]) OP-PT Balance Assessment Sitting Balance Static Sitting Balance Ability Good Dynamic Sitting Balance Ability Good Sitting Balance Comments UE support for sitting balance and must hold onto plinth when bending down to reach for her shoe to put it on. Standing Balance Static Standing Balance Ability Poor Dynamic Standing Balance Ability Poor Standing Balance Comments Pt holds onto chair in front of her for static standing 10 sec. She presents with B leg fatigue/buckling and uses heavy UE support. Pt attempts to lift one foot and then the other but the single stance leg (both right and left when single stance) deanna, requiring her to sit. CGA. Balance Tests Other Other Balance Tests Performed Pt unable to tolerate sit to stand testing trial or other static standing tests d/t LE buckling. Morgan Fall Scale Copyright Permission PT-OP-G Mobility & Gait Start: 04/07/19 12:57 Freq: Status: Active Protocol: Document 04/12/19 12:01 MB (Rec: 04/12/19 12:13 MB [id number]) OP Mobility Evaluation Transfers Sit to Stand Cues to lock w/c and rollator with sit to stand trials from one to the another and back. Pt occ performs a SPT turn and occ performs transfer facing surface she is transferring to (NuStep or w/c), holding onto surface she is transferring to and then reaching around as she pivots or takes small steps to sit. Wheelchair Management Type of Wheelchair Standard w/c Assessment Details Pt holds one leg up with the other foot occ, pushes wheelchair with UEs OP Gait Assessment Gait Gait Assistance Required: Contact Guard Assist Assistive Devices Assistive Device Front Wheeled Walker,4 Wheeled Walker Gait Deviations General Gait Pattern Decreased Stride Length, Decreased Feet Clearance, Flexed Trunk,Narrow Based Gait ,Step-to Gait Factors Limiting Gait Function Factors Limiting Gait Function Abnormal Tonal Influences, Decreased Activity Tolerance, Decreased Strength,Limited Range of Motion,Pain Comments Gait Comments Gait trained 20'x4 and 40'x2; equally divided between use of her rollator and hospital 2WRW. Pt presents with increased knee flexion and buckling, greater on the right , right ankle fusion and little push off, improved left PF tone with WB, step-to gait , quick fatigue, occ c/o right calf discomfort. She has heavy use of UEs, flexed trunk . PT-OP-J Posture/Palpation/Skin Start: 04/07/19 12:57 Freq: Status: Active Protocol: Document 04/07/19 14:10 MB (Rec: 04/07/19 14:45 MB [id number]) Skin Assessment Edema Assessment Right Leg Comments Mild pitting edema B LEs proximal ankle to foot Left Leg Comments Mild pitting edema B LEs proximal ankle to foot PT-OP-K Range of Motion Start: 04/07/19 12:57 Freq: Status: Active Protocol: Document 04/07/19 14:10 MB (Rec: 04/07/19 14:45 MB [id number]) Hip Goniometric Range of Motion Hip ROM Limitations Comments LLE hip flexor contraction movements with attempted AROM left LE. Right hip flexion with ability to briefly lift her right LE off the plinth in supine. Knee Goniometric Range of Motion Knee ROM Limitations Comments Extensor lag with attempted SLR on the right leg. She has arthritic joint changes. LLE spasming with all attempted AROM. Ankle and Foot Goniometric Range of Motion Ankle and Foot ROM Limitations Comments B ankles with limited ROM. Unable to test LLE d/t increased proximal joints flexor tone with attempted passive and active movement of foot. 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 PT-OP-M Strength Start: 04/07/19 12:57 Freq: Status: Active Protocol: Document 04/07/19 14:10 MB (Rec: 04/07/19 14:45 MB [id number]) Hip Strength Hip Manual Muscle Testing Right Flexion (L2) 2+ Poor+ Abduction 2- Poor- Comments Testing in supine. Pt is unable to perform any MMT on LLE d/t flexion tone easily provoked. Knee Strength Knee Manual Muscle Testing Right Flexion (S2) 3- Fair- Extension (L3) 3- Fair- Comments Testing in supine. Unable to perform MMT on LLE d/t flexion tone easily provoked. PT-OP-Q Treatments Start: 04/12/19 12:13 Freq: Status: Active Protocol: Document 06/16/19 10:33 MB (Rec: 06/16/19 11:13 MB [id number]) Cardio Equipment Recumbent Stepper (Sci-Fit) Duration (Minutes) 38 Resistance 3 Therapeutic Exercises Sitting Exercises sit to stand Reps/Minutes 5 reps, 30 sec; 7 reps, 30 sec Comments Performed this date: superv and pt uses UE support, able to stand, no walke Self-Care/Home Management Treatment Education Other Education Extensive ed to pt and about asking pool therapist directly about safest way to get in the pool PT ed pt that she must go to pool with family asst in shower room and in the pool area. PT encourages pt to not leave home alone and to only go out with . PT encourages pt to check out NuStep at the pool gym for use at d/c. Ed pt on pacing self with daily activities in setting of MS. PT-OP-S Aquatic Treatment Start: 04/12/19 12:13 Freq: Status: Active Protocol: Document 06/13/19 11:45 LJ (Rec: 06/13/19 16:18 LJ [id number]) Aquatics Treatment Pool Entry/Exit Pool Entry/Exit Method Lift Assistance Contact Guard Assistance Water Walking [place] September Water Level Chest Level Level of Assistance Standby Assistance Backwards Water Level Waist Level Level of Assistance Moderate Assistance Sideways Water Level Chest Level Level of Assistance Standby Assistance Forwards Water Level Chest Level Level of Assistance Standby Assistance Lower Extremity Exercises stairs Details pool stairs Reps/Duration 3x3 steps Comments step to gait; railings HS curls Body Position Standing Water Level Chest Level Equipment Ankle Weight- 2.5# Reps/Duration 12 bilat TKE Details at wall Water Level Chest Level Equipment Ankle Weight- 2.5# Reps/Duration 10 each side Comments 5 sec hold at end range Hip CCW CW Details standing on box at wall Water Level Waist Level Equipment Ankle Weight- 2.5# Reps/Duration 10B Comments cues for extension hip ab/ad Details at wall Body Position Standing Water Level Waist Level Equipment Ankle Weight- 2.5# hip extension Body Position Standing Water Level Chest Level Equipment Ankle Weight- 2.5# Reps/Duration 10 bilat Lower Extremity Stretches ER rotators Body Position Standing Water Level Chest Level Reps/Duration 2x45 hip flexor Body Position Standing Water Level Chest Level Reps/Duration 2 x45 sec B Comments at wall HS Body Position Standing Water Level Chest Level Equipment Small Noodle Upper Extremity Exercises ab/ad, flex/ext Details freestanding Body Position Standing Water Level Chest Level Equipment sm BBs Reps/Duration 10x Balance step ups on boxes Details 3 boxes 8 Water Level Waist Level Reps/Duration 8x leading w/alternating LE Comments Hetal with stailization [place] Activities [place] Activities Bicycle Equipment lg belt Duration 12 min Comments #2.5 wts PT-OP-T Assessment and Plan Start: 04/07/19 12:57 Freq: Status: Active Protocol: Document 06/16/19 10:33 MB (Rec: 06/16/19 11:13 MB [id number]) Physical Therapy Assessment Rehab Potential Rehabilitation Potential Fair Evaluation Complexity Number of Personal Factors/Comorbidities 3 or More Number of Body Systems Impaired 1-2 Clinical Presentation at Evaluation Evolving Impairments Impairments Activity Tolerance,Balance, Coordination,Edema,Functional Activities,Functional Mobility ,Gait,Integument,Pain,Posture, ROM,Sensation,Soft Tissue Mobility,Strength,Tone, Transfers Other Impairments Decreased proprioception all left toes. R toes are intact. Decreased sensation to light touch all dermatomes LLE. Other Concerns Fall Risk High Barriers to Rehabilitation Multiple body systems affected including central ( progressive disease, MS; history of lumbar surgery, reports knee and foot changes (right ankle fusion) and knee for TKR) Goals 8 Alf Goal (LTG) Pt will perform aquatic HEP with I by 07/11/19. LTG Duration 6 weeks 7 Striper Goal (LTG) Pt will demonstrate safe pool entry and exit with asst from by 07/11/19. LTG Duration 6 weeks 6 Alf Goal (LTG) Pt will deny falls for 6 weeks by 07/11/19. LTG Duration 6 weeks 5 Striper Goal (LTG) Pt will perform TUG in less than 25 sec to improve functional I and decrease fall risk by 07/11/19. 06/02/19: pt performed TUG in 30 sec LTG Duration 6 weeks Four Striper Goal (LTG) Pt will gait train 75 feet with superv with RW by . 06/02/19 pt performs gait training with superv with rollator 50 feet LTG Duration 6 weeks 3 Striper Goal (LTG) Pt will perform progressive HEP with I by 07/11/19. 06/02/19: Pt is perform mini sit to stands and ball squeezes LTG Duration 6 weeks 2 Alf Goal (LTG) Pt will perform 5 repeated reps of sit<->building maintenance mechanic 13 sec with mod I without LE buckling to reduce fall risk by . 06/02/19: pt performs 4 reps sit to stand with UE support in 13 sec LTG Duration 6 weeks 1 Striper Goal (LTG) Pt will maintain standing balance with mod I and use of LRAD for at least 45 sec to decrease fall risk and prepare for gait by 07/05/19. 06/02/19: MET. pt is able to stand 45 sec with rollator and without rollator asst with superv Progress Towards Goals Progress Towards Goals Progressing Toward Goals,Slow Progress due to Activity Tolerance Assessment Summary Assessment Pt con't to progress with mobility. PT encourages her and to follow-up with pool therapist about safe transfers in and out of the pool (pt states that she wants to do the steps) and this PT defers to pool therapist about safest transfer method into the pool. Once again, her goal is to do aquatic exercise after d/c from PT. Physical Therapy Plan Frequency and Duration Frequency of Treatment 2x/Week Duration of Treatment 6 weeks Plan of Care Start Date 06/02/19 Plan of Care End Date 07/11/19 Therapeutic Interventions Therapeutic Interventions Aquatic Therapy,Balance Training,Coordination Training ,Gait Training,Home Exercise Program,Manual Therapy, Neuromuscular Re-education, Patient/Caregiver Education, Self-Care/Home Management, Taping,Therapeutic Activities, Therapeutic Exercises, Wheelchair Management Modalities Cold Pack/Ice Massage,Electric Stimulation,Ultrasound Next Visit Focus/Plan Next Note Type Treatment Note Next Visit Plan Con't to progress gait, strengthening in land PT. Initiate further balance and functional mobility exercises.
--- NOTE | 2019-06-22 15:41 | PT.OTN ---
Current Diagnoses Multiple sclerosis (06/22/19) Weakness (06/22/19) Physical Therapy Treatment Note PT-OP-A Visit Information Start: 04/07/19 12:57 Freq: Status: Active Protocol: Document 06/22/19 11:00 LJ (Rec: 06/22/19 15:41 LJ [email or web address]) Out-Patient Physical Therapy Visit Information Visit Information Visit Type Aquatic Treatment Note Visit Start Time 11:00 Visit Stop Time 11:45 Total Visit Minutes 45 Visit Number 20/unlimited Number of LAND CLEARER Visits 1 PT-OP-B Current Condition Start: 04/07/19 12:57 Freq: Status: Active Protocol: Document 04/07/19 12:14 MB (Rec: 04/07/19 14:06 MB [id number]) Current Condition History of Current Condition Onset Date Progressive Current Complaints Pt reports gradual inability to walk and increasing buckling of her legs History of Current Condition Hx progressive MS, right ankle fusion and back surgery. Progressive trouble with walking Prior Treatments and Tests Spine and right ankle sxs, PT, pt states she just started a medication for LE spasming, cannot state what medication Treatment Goals Patient/Caregiver Goals To walk with walker. Her goal is to be able to walk outside. She first states that she would like to get back to walking a mile daily but she then appears to communicate that this is unlikely given her current presentaion in setting of progressive disease process. Prior Functional Status Baseline Function- ADL's Needs Assist Baseline Function- Mobility Needs Assist Baseline Function- Gait Currently, unable to walk d/t falling. Has been transferring and using w/c Baseline Function- Other Pt states she was walking with walker 3 weeks ago and when her legs collapsed and she fell. EMS had to help get her off of the floor. Current Functional Impairments (Reported) Functional Limitations- ADL's She reports mod I with showering while sitting on shower chair and use of rails as needed. Asst to tie her shoes. She performs ADL tasks sitting. Functional Limitations- Mobility/Gait Currently, unable to take a step without LEs buckling Personal Factors Other Personal Factors That May Effect Progressive disease, right Therapy/Recovery ankle fusion that pt states is failing and LLE flexion tone and spasming pain up to 9-10 /10 are barriers to PT. PT-OP-C Subjective Start: 04/07/19 12:57 Freq: Status: Active Protocol: Document 06/22/19 11:00 LJ (Rec: 06/22/19 15:41 LJ [email or web address]) OP-PT Subjective Patient Comments Patient Comments Pt used 4WW at pool from locker room to lift chair. States she has been going out short trips in the community using her walker rather than her WC. getting in water with pt today for training for when they come to the pool for independent exercising PT-OP-D Balance Start: 04/07/19 12:57 Freq: Status: Active Protocol: Document 04/07/19 14:10 MB (Rec: 04/07/19 14:45 MB [id number]) OP-PT Balance Assessment Sitting Balance Static Sitting Balance Ability Good Dynamic Sitting Balance Ability Good Sitting Balance Comments UE support for sitting balance and must hold onto plinth when bending down to reach for her shoe to put it on. Standing Balance Static Standing Balance Ability Poor Dynamic Standing Balance Ability Poor Standing Balance Comments Pt holds onto chair in front of her for static standing 10 sec. She presents with B leg fatigue/buckling and uses heavy UE support. Pt attempts to lift one foot and then the other but the single stance leg (both right and left when single stance) deanna, requiring her to sit. CGA. Balance Tests Other Other Balance Tests Performed Pt unable to tolerate sit to stand testing trial or other static standing tests d/t LE buckling. Morgan Fall Scale Copyright Permission PT-OP-G Mobility & Gait Start: 04/07/19 12:57 Freq: Status: Active Protocol: Document 04/12/19 12:01 MB (Rec: 04/12/19 12:13 MB [id number]) OP Mobility Evaluation Transfers Sit to Stand Cues to lock w/c and rollator with sit to stand trials from one to the another and back. Pt occ performs a SPT turn and occ performs transfer facing surface she is transferring to (NuStep or w/c), holding onto surface she is transferring to and then reaching around as she pivots or takes small steps to sit. Wheelchair Management Type of Wheelchair Standard w/c Assessment Details Pt holds one leg up with the other foot occ, pushes wheelchair with UEs OP Gait Assessment Gait Gait Assistance Required: Contact Guard Assist Assistive Devices Assistive Device Front Wheeled Walker,4 Wheeled Walker Gait Deviations General Gait Pattern Decreased Stride Length, Decreased Feet Clearance, Flexed Trunk,Narrow Based Gait ,Step-to Gait Factors Limiting Gait Function Factors Limiting Gait Function Abnormal Tonal Influences, Decreased Activity Tolerance, Decreased Strength,Limited Range of Motion,Pain Comments Gait Comments Gait trained 20'x4 and 40'x2; equally divided between use of her rollator and hospital 2WRW. Pt presents with increased knee flexion and buckling, greater on the right , right ankle fusion and little push off, improved left PF tone with WB, step-to gait , quick fatigue, occ c/o right calf discomfort. She has heavy use of UEs, flexed trunk . PT-OP-J Posture/Palpation/Skin Start: 04/07/19 12:57 Freq: Status: Active Protocol: Document 04/07/19 14:10 MB (Rec: 04/07/19 14:45 MB [id number]) Skin Assessment Edema Assessment Right Leg Comments Mild pitting edema B LEs proximal ankle to foot Left Leg Comments Mild pitting edema B LEs proximal ankle to foot PT-OP-K Range of Motion Start: 04/07/19 12:57 Freq: Status: Active Protocol: Document 04/07/19 14:10 MB (Rec: 04/07/19 14:45 MB [id number]) Hip Goniometric Range of Motion Hip ROM Limitations Comments LLE hip flexor contraction movements with attempted AROM left LE. Right hip flexion with ability to briefly lift her right LE off the plinth in supine. Knee Goniometric Range of Motion Knee ROM Limitations Comments Extensor lag with attempted SLR on the right leg. She has arthritic joint changes. LLE spasming with all attempted AROM. Ankle and Foot Goniometric Range of Motion Ankle and Foot ROM Limitations Comments B ankles with limited ROM. Unable to test LLE d/t increased proximal joints flexor tone with attempted passive and active movement of foot. 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 PT-OP-M Strength Start: 04/07/19 12:57 Freq: Status: Active Protocol: Document 04/07/19 14:10 MB (Rec: 04/07/19 14:45 MB [id number]) Hip Strength Hip Manual Muscle Testing Right Flexion (L2) 2+ Poor+ Abduction 2- Poor- Comments Testing in supine. Pt is unable to perform any MMT on LLE d/t flexion tone easily provoked. Knee Strength Knee Manual Muscle Testing Right Flexion (S2) 3- Fair- Extension (L3) 3- Fair- Comments Testing in supine. Unable to perform MMT on LLE d/t flexion tone easily provoked. PT-OP-Q Treatments Start: 04/12/19 12:13 Freq: Status: Active Protocol: Document 06/16/19 10:33 MB (Rec: 06/16/19 11:13 MB [id number]) Cardio Equipment Recumbent Stepper (Sci-Fit) Duration (Minutes) 38 Resistance 3 Therapeutic Exercises Sitting Exercises sit to stand Reps/Minutes 5 reps, 30 sec; 7 reps, 30 sec Comments Performed this date: superv and pt uses UE support, able to stand, no walke Self-Care/Home Management Treatment Education Other Education Extensive ed to pt and about asking pool therapist directly about safest way to get in the pool PT ed pt that she must go to pool with family asst in shower room and in the pool area. PT encourages pt to not leave home alone and to only go out with . PT encourages pt to check out NuStep at the pool gym for use at d/c. Ed pt on pacing self with daily activities in setting of MS. PT-OP-S Aquatic Treatment Start: 04/12/19 12:13 Freq: Status: Active Protocol: Document 06/22/19 11:00 LJ (Rec: 06/22/19 15:41 LJ [email or web address]) Aquatics Treatment Pool Entry/Exit Pool Entry/Exit Method Lift Assistance Standby Assistance Water Walking Augustaseptember Water Level Chest Level Walking Equipment Ankle Weight- 2.5# Level of Assistance Standby Assistance Backwards Water Level Waist Level Walking Equipment Ankle Weight- 2.5# Comments cues to stand upright Sideways Water Level Chest Level Walking Equipment Ankle Weight- 2.5# Level of Assistance Standby Assistance Forwards Water Level Chest Level Walking Equipment Ankle Weight- 2.5# Level of Assistance Standby Assistance Lower Extremity Exercises HS curls Body Position Standing Water Level Chest Level Equipment Ankle Weight- 2.5# Reps/Duration 12 bilat TKE Details at wall Water Level Chest Level Equipment Ankle Weight- 2.5# Reps/Duration 10 each side Comments 5 sec hold at end range Hip CCW CW Details standing on box at wall Water Level Waist Level Equipment Ankle Weight- 2.5# Reps/Duration 10B Comments cues for extension hip ab/ad Details at wall Body Position Standing Water Level Waist Level Equipment Ankle Weight- 2.5# Lower Extremity Stretches hip flexor Body Position Standing Water Level Chest Level Reps/Duration 2 x45 sec B Comments at wall HS Body Position Standing Water Level Chest Level Equipment Small Noodle Balance step ups on boxes Details 3 boxes 8 Water Level Waist Level Reps/Duration 12x leading w/alternating LE [place] Activities [place] Activities Bicycle,Cross Country Equipment lg belt; #2.5 Duration 10 min PT-OP-T Assessment and Plan Start: 04/07/19 12:57 Freq: Status: Active Protocol: Document 06/22/19 11:00 ETHAN (Rec: 06/22/19 15:41 LJ [email or web address]) Physical Therapy Assessment Rehab Potential Rehabilitation Potential Fair Evaluation Complexity Number of Personal Factors/Comorbidities 3 or More Number of Body Systems Impaired 1-2 Clinical Presentation at Evaluation Evolving Impairments Impairments Activity Tolerance,Balance, Coordination,Edema,Functional Activities,Functional Mobility ,Gait,Integument,Pain,Posture, ROM,Sensation,Soft Tissue Mobility,Strength,Tone, Transfers Other Impairments Decreased proprioception all left toes. R toes are intact. Decreased sensation to light touch all dermatomes LLE. Other Concerns Fall Risk High Barriers to Rehabilitation Multiple body systems affected including central ( progressive disease, MS; history of lumbar surgery, reports knee and foot changes (right ankle fusion) and knee for TKR) Goals 8 Usp Goal (LTG) Pt will perform aquatic HEP with I by 07/11/19. LTG Duration 6 weeks 7 Usp Goal (LTG) Pt will demonstrate safe pool entry and exit with asst from by 07/11/19. LTG Duration 6 weeks 6 Pantry Cook Goal (LTG) Pt will deny falls for 6 weeks by 07/11/19. LTG Duration 6 weeks 5 Usp Goal (LTG) Pt will perform TUG in less than 25 sec to improve functional I and decrease fall risk by 07/11/19. 06/02/19: pt performed TUG in 30 sec LTG Duration 6 weeks Four Usp Goal (LTG) Pt will gait train 75 feet with superv with RW by . 06/02/19 pt performs gait training with superv with rollator 50 feet LTG Duration 6 weeks 3 Pantry Cook Goal (LTG) Pt will perform progressive HEP with I by 07/11/19. 06/02/19: Pt is perform mini sit to stands and ball squeezes LTG Duration 6 weeks 2 Pantry Cook Goal (LTG) Pt will perform 5 repeated reps of sit<->bullet lubricating machine operator 13 sec with mod I without LE buckling to reduce fall risk by . 06/02/19: pt performs 4 reps sit to stand with UE support in 13 sec LTG Duration 6 weeks 1 Pantry Cook Goal (LTG) Pt will maintain standing balance with mod I and use of LRAD for at least 45 sec to decrease fall risk and prepare for gait by 07/05/19. 06/02/19: MET. pt is able to stand 45 sec with rollator and without rollator asst with superv Progress Towards Goals Progress Towards Goals Progressing Toward Goals,Slow Progress due to Activity Tolerance Assessment Summary Assessment Pt c/o some back pain with ambulation and standing exercises. States she has had back pain for the past couple of days. Pain relieved in deep water exercising. Pt forgot x2 to lock brakes during transfers. will require more training at and in pool for caregiving during pt aquatic exercise. Physical Therapy Plan Frequency and Duration Frequency of Treatment 2x/Week Duration of Treatment 6 weeks Plan of Care Start Date 06/02/19 Plan of Care End Date 07/11/19 Therapeutic Interventions Therapeutic Interventions Aquatic Therapy,Balance Training,Coordination Training ,Gait Training,Home Exercise Program,Manual Therapy, Neuromuscular Re-education, Patient/Caregiver Education, Self-Care/Home Management, Taping,Therapeutic Activities, Therapeutic Exercises, Wheelchair Management Modalities Cold Pack/Ice Massage,Electric Stimulation,Ultrasound Other Referrals/Consults Referrals/Consults Recommended Doctor follow-up about LE edema, 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 Next Visit Focus/Plan Next Note Type Treatment Note Next Visit Plan Con't to progress gait, strengthening in land PT. Initiate further balance and functional mobility exercises.
--- NOTE | 2019-06-24 16:15 | PT.OTN ---
Current Diagnoses Multiple sclerosis (06/24/19) Weakness (06/24/19) Physical Therapy Treatment Note PT-OP-A Visit Information Start: 04/07/19 12:57 Freq: Status: Active Protocol: Document 06/24/19 14:30 LJ (Rec: 06/24/19 16:15 LJ [id number]) Out-Patient Physical Therapy Visit Information Visit Information Visit Type Treatment Note Visit Start Time 14:15 Visit Stop Time 15:30 Total Visit Minutes 45 Visit Number 21/unlimited Number of MACHINE ENGINEER Visits 2 PT-OP-B Current Condition Start: 04/07/19 12:57 Freq: Status: Active Protocol: Document 04/07/19 12:14 MB (Rec: 04/07/19 14:06 MB [id number]) Current Condition History of Current Condition Onset Date Progressive Current Complaints Pt reports gradual inability to walk and increasing buckling of her legs History of Current Condition Hx progressive MS, right ankle fusion and back surgery. Progressive trouble with walking Prior Treatments and Tests Spine and right ankle sxs, PT, pt states she just started a medication for LE spasming, cannot state what medication Treatment Goals Patient/Caregiver Goals To walk with walker. Her goal is to be able to walk outside. She first states that she would like to get back to walking a mile daily but she then appears to communicate that this is unlikely given her current presentaion in setting of progressive disease process. Prior Functional Status Baseline Function- ADL's Needs Assist Baseline Function- Mobility Needs Assist Baseline Function- Gait Currently, unable to walk d/t falling. Has been transferring and using w/c Baseline Function- Other Pt states she was walking with walker 3 weeks ago and when her legs collapsed and she fell. EMS had to help get her off of the floor. Current Functional Impairments (Reported) Functional Limitations- ADL's She reports mod I with showering while sitting on shower chair and use of rails as needed. Asst to tie her shoes. She performs ADL tasks sitting. Functional Limitations- Mobility/Gait Currently, unable to take a step without LEs buckling Personal Factors Other Personal Factors That May Effect Progressive disease, right Therapy/Recovery ankle fusion that pt states is failing and LLE flexion tone and spasming pain up to 9-10 /10 are barriers to PT. PT-OP-C Subjective Start: 04/07/19 12:57 Freq: Status: Active Protocol: Document 06/24/19 14:30 LJ (Rec: 06/24/19 16:15 LJ [id number]) OP-PT Subjective Patient Comments Patient Comments Pt reports she is having less pain in her knees but still has LBP. She has been working on improving her posture during walking. PT-OP-D Balance Start: 04/07/19 12:57 Freq: Status: Active Protocol: Document 04/07/19 14:10 MB (Rec: 04/07/19 14:45 MB [id number]) OP-PT Balance Assessment Sitting Balance Static Sitting Balance Ability Good Dynamic Sitting Balance Ability Good Sitting Balance Comments UE support for sitting balance and must hold onto plinth when bending down to reach for her shoe to put it on. Standing Balance Static Standing Balance Ability Poor Dynamic Standing Balance Ability Poor Standing Balance Comments Pt holds onto chair in front of her for static standing 10 sec. She presents with B leg fatigue/buckling and uses heavy UE support. Pt attempts to lift one foot and then the other but the single stance leg (both right and left when single stance) deanna, requiring her to sit. CGA. Balance Tests Other Other Balance Tests Performed Pt unable to tolerate sit to stand testing trial or other static standing tests d/t LE buckling. Morgan Fall Scale Copyright Permission PT-OP-G Mobility & Gait Start: 04/07/19 12:57 Freq: Status: Active Protocol: Document 04/12/19 12:01 MB (Rec: 04/12/19 12:13 MB [id number]) OP Mobility Evaluation Transfers Sit to Stand Cues to lock w/c and rollator with sit to stand trials from one to the another and back. Pt occ performs a SPT turn and occ performs transfer facing surface she is transferring to (NuStep or w/c), holding onto surface she is transferring to and then reaching around as she pivots or takes small steps to sit. Wheelchair Management Type of Wheelchair Standard w/c Assessment Details Pt holds one leg up with the other foot occ, pushes wheelchair with UEs OP Gait Assessment Gait Gait Assistance Required: Contact Guard Assist Assistive Devices Assistive Device Front Wheeled Walker,4 Wheeled Walker Gait Deviations General Gait Pattern Decreased Stride Length, Decreased Feet Clearance, Flexed Trunk,Narrow Based Gait ,Step-to Gait Factors Limiting Gait Function Factors Limiting Gait Function Abnormal Tonal Influences, Decreased Activity Tolerance, Decreased Strength,Limited Range of Motion,Pain Comments Gait Comments Gait trained 20'x4 and 40'x2; equally divided between use of her rollator and hospital 2WRW. Pt presents with increased knee flexion and buckling, greater on the right , right ankle fusion and little push off, improved left PF tone with WB, step-to gait , quick fatigue, occ c/o right calf discomfort. She has heavy use of UEs, flexed trunk . PT-OP-J Posture/Palpation/Skin Start: 04/07/19 12:57 Freq: Status: Active Protocol: Document 04/07/19 14:10 MB (Rec: 04/07/19 14:45 MB [id number]) Skin Assessment Edema Assessment Right Leg Comments Mild pitting edema B LEs proximal ankle to foot Left Leg Comments Mild pitting edema B LEs proximal ankle to foot PT-OP-K Range of Motion Start: 04/07/19 12:57 Freq: Status: Active Protocol: Document 04/07/19 14:10 MB (Rec: 04/07/19 14:45 MB [id number]) Hip Goniometric Range of Motion Hip ROM Limitations Comments LLE hip flexor contraction movements with attempted AROM left LE. Right hip flexion with ability to briefly lift her right LE off the plinth in supine. Knee Goniometric Range of Motion Knee ROM Limitations Comments Extensor lag with attempted SLR on the right leg. She has arthritic joint changes. LLE spasming with all attempted AROM. Ankle and Foot Goniometric Range of Motion Ankle and Foot ROM Limitations Comments B ankles with limited ROM. Unable to test LLE d/t increased proximal joints flexor tone with attempted passive and active movement of foot. 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 PT-OP-M Strength Start: 04/07/19 12:57 Freq: Status: Active Protocol: Document 04/07/19 14:10 MB (Rec: 04/07/19 14:45 MB [id number]) Hip Strength Hip Manual Muscle Testing Right Flexion (L2) 2+ Poor+ Abduction 2- Poor- Comments Testing in supine. Pt is unable to perform any MMT on LLE d/t flexion tone easily provoked. Knee Strength Knee Manual Muscle Testing Right Flexion (S2) 3- Fair- Extension (L3) 3- Fair- Comments Testing in supine. Unable to perform MMT on LLE d/t flexion tone easily provoked. PT-OP-Q Treatments Start: 04/12/19 12:13 Freq: Status: Active Protocol: Document 06/24/19 14:30 LJ (Rec: 06/24/19 16:15 LJ [id number]) Cardio Equipment Recumbent Stepper (Sci-Fit) Duration (Minutes) 20 Resistance 3 Therapeutic Exercises Sitting Exercises dorsiflexion Side bilateral Equipment Used #7 on right foot, 5 on left Reps/Minutes 20 sit to stand Reps/Minutes 8 seated march Side bilateral Equipment Used #5 weight on knee Reps/Minutes 2x15 Gait Training Gait Activity Multiple gait activities to assess speed, balance, transfers pre-gait Device Used 4WW Surface verbal and manual cues Treatment Focus 6 min Comments Ongoing leg length discrepancy and LE changes.Consider trying heel lift in left shoe. 1 Description foward gait Device Used //bar, Level of Assistance CGA Surface level Distance/Duration 10 ft //bar, 15 ft x2 4ww Treatment Focus knee extension for gait in home endurance Comments occasional cues for LLE knee extension PT-OP-S Aquatic Treatment Start: 04/12/19 12:13 Freq: Status: Active Protocol: Document 06/22/19 11:00 ETHAN (Rec: 06/22/19 15:41 [id number]) Aquatics Treatment Pool Entry/Exit Pool Entry/Exit Method Lift Assistance Standby Assistance Water Walking [employer] September Water Level Chest Level Walking Equipment Ankle Weight- 2.5# Level of Assistance Standby Assistance Backwards Water Level Waist Level Walking Equipment Ankle Weight- 2.5# Comments cues to stand upright Sideways Water Level Chest Level Walking Equipment Ankle Weight- 2.5# Level of Assistance Standby Assistance Forwards Water Level Chest Level Walking Equipment Ankle Weight- 2.5# Level of Assistance Standby Assistance Lower Extremity Exercises HS curls Body Position Standing Water Level Chest Level Equipment Ankle Weight- 2.5# Reps/Duration 12 bilat TKE Details at wall Water Level Chest Level Equipment Ankle Weight- 2.5# Reps/Duration 10 each side Comments 5 sec hold at end range Hip CCW CW Details standing on box at wall Water Level Waist Level Equipment Ankle Weight- 2.5# Reps/Duration 10B Comments cues for extension hip ab/ad Details at wall Body Position Standing Water Level Waist Level Equipment Ankle Weight- 2.5# Lower Extremity Stretches hip flexor Body Position Standing Water Level Chest Level Reps/Duration 2 x45 sec B Comments at wall HS Body Position Standing Water Level Chest Level Equipment Small Noodle Balance step ups on boxes Details 3 boxes 8 Water Level Waist Level Reps/Duration 12x leading w/alternating LE Decherd Activities Decherd Activities Bicycle,Cross Country Equipment lg belt; #2.5 Duration 10 min PT-OP-T Assessment and Plan Start: 04/07/19 12:57 Freq: Status: Active Protocol: Document 06/24/19 14:30 ETHAN (Rec: 06/24/19 16:15 [id number]) Physical Therapy Assessment Rehab Potential Rehabilitation Potential Fair Evaluation Complexity Number of Personal Factors/Comorbidities 3 or More Number of Body Systems Impaired 1-2 Clinical Presentation at Evaluation Evolving Impairments Impairments Activity Tolerance,Balance, Coordination,Edema,Functional Activities,Functional Mobility ,Gait,Integument,Pain,Posture, ROM,Sensation,Soft Tissue Mobility,Strength,Tone, Transfers Other Impairments Decreased proprioception all left toes. R toes are intact. Decreased sensation to light touch all dermatomes LLE. Other Concerns Fall Risk High Barriers to Rehabilitation Multiple body systems affected including central ( progressive disease, MS; history of lumbar surgery, reports knee and foot changes (right ankle fusion) and knee for TKR) Goals 8 Hotel Desk Clerk Goal (LTG) Pt will perform aquatic HEP with I by 07/11/19. LTG Duration 6 weeks 7 Care Home Goal (LTG) Pt will demonstrate safe pool entry and exit with asst from by 07/11/19. LTG Duration 6 weeks 6 Care Home Goal (LTG) Pt will deny falls for 6 weeks by 07/11/19. LTG Duration 6 weeks 5 Care Home Goal (LTG) Pt will perform TUG in less than 25 sec to improve functional I and decrease fall risk by 07/11/19. 06/02/19: pt performed TUG in 30 sec LTG Duration 6 weeks Four Care Home Goal (LTG) Pt will gait train 75 feet with superv with RW by . 06/02/19 pt performs gait training with superv with rollator 50 feet LTG Duration 6 weeks 3 Hotel Desk Clerk Goal (LTG) Pt will perform progressive HEP with I by 07/11/19. 06/02/19: Pt is perform mini sit to stands and ball squeezes LTG Duration 6 weeks 2 Care Home Goal (LTG) Pt will perform 5 repeated reps of sit<->clinical academic allergist 13 sec with mod I without LE buckling to reduce fall risk by . 06/02/19: pt performs 4 reps sit to stand with UE support in 13 sec LTG Duration 6 weeks 1 Care Home Goal (LTG) Pt will maintain standing balance with mod I and use of LRAD for at least 45 sec to decrease fall risk and prepare for gait by 07/05/19. 06/02/19: MET. pt is able to stand 45 sec with rollator and without rollator asst with superv Progress Towards Goals Progress Towards Goals Progressing Toward Goals,Slow Progress due to Activity Tolerance Assessment Summary Assessment Pt c/o some back pain with ambulation and standing exercises. States she has had back pain for the past couple of days. Pain relieved in deep water exercising. Pt forgot x2 to lock brakes during transfers. will require more training at and in pool for caregiving during pt aquatic exercise. Physical Therapy Plan Frequency and Duration Frequency of Treatment 2x/Week Duration of Treatment 6 weeks Plan of Care Start Date 06/02/19 Plan of Care End Date 07/11/19 Therapeutic Interventions Therapeutic Interventions Aquatic Therapy,Balance Training,Coordination Training ,Gait Training,Home Exercise Program,Manual Therapy, Neuromuscular Re-education, Patient/Caregiver Education, Self-Care/Home Management, Taping,Therapeutic Activities, Therapeutic Exercises, Wheelchair Management Modalities Cold Pack/Ice Massage,Electric Stimulation,Ultrasound Other Referrals/Consults Referrals/Consults Recommended Doctor follow-up about LE edema, 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 Next Visit Focus/Plan Next Note Type Treatment Note Next Visit Plan Con't to progress gait, strengthening in land PT. Initiate further balance and functional mobility exercises.
--- NOTE | 2019-06-27 16:18 | PT.OTN ---
Current Diagnoses Multiple sclerosis (06/27/19) Weakness (06/27/19) Physical Therapy Treatment Note PT-OP-A Visit Information Start: 04/07/19 12:57 Freq: Status: Active Protocol: Document 06/27/19 11:45 LJ (Rec: 06/27/19 16:18 LJ [id number]) Out-Patient Physical Therapy Visit Information Visit Information Visit Type Aquatic Treatment Note Visit Start Time 11:45 Visit Stop Time 12:30 Total Visit Minutes 45 Visit Number 22/unlimited Number of COMMERCIAL PLUMBER Visits 3 PT-OP-B Current Condition Start: 04/07/19 12:57 Freq: Status: Active Protocol: Document 04/07/19 12:14 MB (Rec: 04/07/19 14:06 MB [id number]) Current Condition History of Current Condition Onset Date Progressive Current Complaints Pt reports gradual inability to walk and increasing buckling of her legs History of Current Condition Hx progressive MS, right ankle fusion and back surgery. Progressive trouble with walking Prior Treatments and Tests Spine and right ankle sxs, PT, pt states she just started a medication for LE spasming, cannot state what medication Treatment Goals Patient/Caregiver Goals To walk with walker. Her goal is to be able to walk outside. She first states that she would like to get back to walking a mile daily but she then appears to communicate that this is unlikely given her current presentaion in setting of progressive disease process. Prior Functional Status Baseline Function- ADL's Needs Assist Baseline Function- Mobility Needs Assist Baseline Function- Gait Currently, unable to walk d/t falling. Has been transferring and using w/c Baseline Function- Other Pt states she was walking with walker 3 weeks ago and when her legs collapsed and she fell. EMS had to help get her off of the floor. Current Functional Impairments (Reported) Functional Limitations- ADL's She reports mod I with showering while sitting on shower chair and use of rails as needed. Asst to tie her shoes. She performs ADL tasks sitting. Functional Limitations- Mobility/Gait Currently, unable to take a step without LEs buckling Personal Factors Other Personal Factors That May Effect Progressive disease, right Therapy/Recovery ankle fusion that pt states is failing and LLE flexion tone and spasming pain up to 9-10 /10 are barriers to PT. PT-OP-C Subjective Start: 04/07/19 12:57 Freq: Status: Active Protocol: Document 06/27/19 11:45 LJ (Rec: 06/27/19 16:18 LJ [id number]) OP-PT Subjective Patient Comments Patient Comments Pt reports she is still experiencing LBP in the morning but it lessens after she gets moving. States her is sick and she drove herself to the pool. PT-OP-D Balance Start: 04/07/19 12:57 Freq: Status: Active Protocol: Document 04/07/19 14:10 MB (Rec: 04/07/19 14:45 MB [id number]) OP-PT Balance Assessment Sitting Balance Static Sitting Balance Ability Good Dynamic Sitting Balance Ability Good Sitting Balance Comments UE support for sitting balance and must hold onto plinth when bending down to reach for her shoe to put it on. Standing Balance Static Standing Balance Ability Poor Dynamic Standing Balance Ability Poor Standing Balance Comments Pt holds onto chair in front of her for static standing 10 sec. She presents with B leg fatigue/buckling and uses heavy UE support. Pt attempts to lift one foot and then the other but the single stance leg (both right and left when single stance) deanna, requiring her to sit. CGA. Balance Tests Other Other Balance Tests Performed Pt unable to tolerate sit to stand testing trial or other static standing tests d/t LE buckling. Morgan Fall Scale Copyright Permission PT-OP-G Mobility & Gait Start: 04/07/19 12:57 Freq: Status: Active Protocol: Document 04/12/19 12:01 MB (Rec: 04/12/19 12:13 MB [id number]) OP Mobility Evaluation Transfers Sit to Stand Cues to lock w/c and rollator with sit to stand trials from one to the another and back. Pt occ performs a SPT turn and occ performs transfer facing surface she is transferring to (NuStep or w/c), holding onto surface she is transferring to and then reaching around as she pivots or takes small steps to sit. Wheelchair Management Type of Wheelchair Standard w/c Assessment Details Pt holds one leg up with the other foot occ, pushes wheelchair with UEs OP Gait Assessment Gait Gait Assistance Required: Contact Guard Assist Assistive Devices Assistive Device Front Wheeled Walker,4 Wheeled Walker Gait Deviations General Gait Pattern Decreased Stride Length, Decreased Feet Clearance, Flexed Trunk,Narrow Based Gait ,Step-to Gait Factors Limiting Gait Function Factors Limiting Gait Function Abnormal Tonal Influences, Decreased Activity Tolerance, Decreased Strength,Limited Range of Motion,Pain Comments Gait Comments Gait trained 20'x4 and 40'x2; equally divided between use of her rollator and hospital 2WRW. Pt presents with increased knee flexion and buckling, greater on the right , right ankle fusion and little push off, improved left PF tone with WB, step-to gait , quick fatigue, occ c/o right calf discomfort. She has heavy use of UEs, flexed trunk . PT-OP-J Posture/Palpation/Skin Start: 04/07/19 12:57 Freq: Status: Active Protocol: Document 04/07/19 14:10 MB (Rec: 04/07/19 14:45 MB [id number]) Skin Assessment Edema Assessment Right Leg Comments Mild pitting edema B LEs proximal ankle to foot Left Leg Comments Mild pitting edema B LEs proximal ankle to foot PT-OP-K Range of Motion Start: 04/07/19 12:57 Freq: Status: Active Protocol: Document 04/07/19 14:10 MB (Rec: 04/07/19 14:45 MB [id number]) Hip Goniometric Range of Motion Hip ROM Limitations Comments LLE hip flexor contraction movements with attempted AROM left LE. Right hip flexion with ability to briefly lift her right LE off the plinth in supine. Knee Goniometric Range of Motion Knee ROM Limitations Comments Extensor lag with attempted SLR on the right leg. She has arthritic joint changes. LLE spasming with all attempted AROM. Ankle and Foot Goniometric Range of Motion Ankle and Foot ROM Limitations Comments B ankles with limited ROM. Unable to test LLE d/t increased proximal joints flexor tone with attempted passive and active movement of foot. 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 PT-OP-M Strength Start: 04/07/19 12:57 Freq: Status: Active Protocol: Document 04/07/19 14:10 MB (Rec: 04/07/19 14:45 MB [id number]) Hip Strength Hip Manual Muscle Testing Right Flexion (L2) 2+ Poor+ Abduction 2- Poor- Comments Testing in supine. Pt is unable to perform any MMT on LLE d/t flexion tone easily provoked. Knee Strength Knee Manual Muscle Testing Right Flexion (S2) 3- Fair- Extension (L3) 3- Fair- Comments Testing in supine. Unable to perform MMT on LLE d/t flexion tone easily provoked. PT-OP-Q Treatments Start: 04/12/19 12:13 Freq: Status: Active Protocol: Document 06/24/19 14:30 LJ (Rec: 06/24/19 16:15 LJ [id number]) Cardio Equipment Recumbent Stepper (Sci-Fit) Duration (Minutes) 20 Resistance 3 Therapeutic Exercises Sitting Exercises dorsiflexion Side bilateral Equipment Used #7 on right foot, 5 on left Reps/Minutes 20 sit to stand Reps/Minutes 8 seated march Side bilateral Equipment Used #5 weight on knee Reps/Minutes 2x15 Gait Training Gait Activity Multiple gait activities to assess speed, balance, transfers pre-gait Device Used 4WW Surface verbal and manual cues Treatment Focus 6 min Comments Ongoing leg length discrepancy and LE changes.Consider trying heel lift in left shoe. 1 Description foward gait Device Used //bar, Level of Assistance CGA Surface level Distance/Duration 10 ft //bar, 15 ft x2 4ww Treatment Focus knee extension for gait in home endurance Comments occasional cues for LLE knee extension PT-OP-S Aquatic Treatment Start: 04/12/19 12:13 Freq: Status: Active Protocol: Document 06/27/19 11:45 LJ (Rec: 06/27/19 16:18 LJ [id number]) Aquatics Treatment Pool Entry/Exit Pool Entry/Exit Method Lift Assistance Standby Assistance Water Walking [place] September Water Level Chest Level Walking Equipment Ankle Weight- 2.5# Level of Assistance Standby Assistance Comments wt under L foot forward with FWW Level of Assistance Verbal Cues Comments no LOB Backwards Water Level Waist Level Walking Equipment Ankle Weight- 2.5# Comments cues to stand upright Sideways Water Level Chest Level Walking Equipment Ankle Weight- 2.5# Level of Assistance Standby Assistance Forwards Water Level Chest Level Walking Equipment Ankle Weight- 2.5# Level of Assistance Standby Assistance Lower Extremity Exercises stairs Details pool stairs Reps/Duration 3x3 steps Comments step to gait; railings HS curls Body Position Standing Water Level Chest Level Equipment Ankle Weight- 2.5# Reps/Duration 12 bilat TKE Details at wall Water Level Chest Level Equipment Ankle Weight- 2.5# Reps/Duration 10 each side Comments 5 sec hold at end range Hip CCW CW Details standing on box at wall Water Level Waist Level Equipment Ankle Weight- 2.5# Reps/Duration 10B Comments cues for extension hip ab/ad Details at wall Body Position Standing Water Level Waist Level Equipment Ankle Weight- 2.5# sit<>stand Details on stairs Water Level Waist Level Reps/Duration 10 Comments use of UEs on railing Assisted SLS Details at wall Body Position Standing Water Level Chest Level Comments independent hip extension Body Position Standing Water Level Chest Level Equipment Ankle Weight- 2.5# Reps/Duration 10 bilat Lower Extremity Stretches hip flexor Body Position Standing Water Level Chest Level Reps/Duration 2 x45 sec B Comments at wall HS Body Position Standing Water Level Chest Level Equipment Large Noodle Upper Extremity Exercises ab/ad, flex/ext Details freestanding Body Position Standing Water Level Chest Level Equipment sm BBs Reps/Duration 10x Upper Extremity Stretches pec stretch Details forward walking w/paddles Reps/Duration 30m Comments cues for posture Spinal Exercises spinal extension Details spinal extension to correct forward lean Body Position Standing Water Level Chest Level Equipment Ankle Weight- 2.5# Reps/Duration 1 min Comments extend and hold position with handhold on wall Balance static standing balance Body Position Standing Water Level Chest Level Reps/Duration 2 min Comments no handhold Tyrone Activities Tyrone Activities Bicycle,Cross Country Equipment lg belt; #2.5 Duration 9 min PT-OP-T Assessment and Plan Start: 04/07/19 12:57 Freq: Status: Active Protocol: Document 06/27/19 11:45 ETHAN (Rec: 06/27/19 16:18 ETHAN [id number]) Physical Therapy Assessment Rehab Potential Rehabilitation Potential Fair Evaluation Complexity Number of Personal Factors/Comorbidities 3 or More Number of Body Systems Impaired 1-2 Clinical Presentation at Evaluation Evolving Impairments Impairments Activity Tolerance,Balance, Coordination,Edema,Functional Activities,Functional Mobility ,Gait,Integument,Pain,Posture, ROM,Sensation,Soft Tissue Mobility,Strength,Tone, Transfers Other Impairments Decreased proprioception all left toes. R toes are intact. Decreased sensation to light touch all dermatomes LLE. Other Concerns Fall Risk High Barriers to Rehabilitation Multiple body systems affected including central ( progressive disease, MS; history of lumbar surgery, reports knee and foot changes (right ankle fusion) and knee for TKR) Goals 8 Associate Data Scientist Goal (LTG) Pt will perform aquatic HEP with I by 07/11/19. LTG Duration 6 weeks 7 Detention Goal (LTG) Pt will demonstrate safe pool entry and exit with asst from by 07/11/19. LTG Duration 6 weeks 6 Detention Goal (LTG) Pt will deny falls for 6 weeks by 07/11/19. LTG Duration 6 weeks 5 Associate Data Scientist Goal (LTG) Pt will perform TUG in less than 25 sec to improve functional I and decrease fall risk by 07/11/19. 06/02/19: pt performed TUG in 30 sec LTG Duration 6 weeks Four Associate Data Scientist Goal (LTG) Pt will gait train 75 feet with superv with RW by . 06/02/19 pt performs gait training with superv with rollator 50 feet LTG Duration 6 weeks 3 Detention Goal (LTG) Pt will perform progressive HEP with I by 07/11/19. 06/02/19: Pt is perform mini sit to stands and ball squeezes LTG Duration 6 weeks 2 Detention Goal (LTG) Pt will perform 5 repeated reps of sit<->gripper machine operator 13 sec with mod I without LE buckling to reduce fall risk by . 06/02/19: pt performs 4 reps sit to stand with UE support in 13 sec LTG Duration 6 weeks 1 Associate Data Scientist Goal (LTG) Pt will maintain standing balance with mod I and use of LRAD for at least 45 sec to decrease fall risk and prepare for gait by 07/05/19. 06/02/19: MET. pt is able to stand 45 sec with rollator and without rollator asst with superv Progress Towards Goals Progress Towards Goals Progressing Toward Goals,Slow Progress due to Activity Tolerance Assessment Summary Assessment Pt c/o some back pain with ambulation and standing exercises which was relieved in deep water exercising. Pt requires cueing for posture which she is able to correct promptly. Improving with balance and gait as well as static standing. It is this COMMERCIAL PLUMBER's opinion that prt would benefit from lift in left shoe to even out leg length discrepancy. HS need to be stretched periodically during exercising to reinforce straightening legs during stance phase of gait Physical Therapy Plan Frequency and Duration Frequency of Treatment 2x/Week Duration of Treatment 6 weeks Plan of Care Start Date 06/02/19 Plan of Care End Date 07/11/19 Therapeutic Interventions Therapeutic Interventions Aquatic Therapy,Balance Training,Coordination Training ,Gait Training,Home Exercise Program,Manual Therapy, Neuromuscular Re-education, Patient/Caregiver Education, Self-Care/Home Management, Taping,Therapeutic Activities, Therapeutic Exercises, Wheelchair Management Modalities Cold Pack/Ice Massage,Electric Stimulation,Ultrasound Other Referrals/Consults Referrals/Consults Recommended Doctor follow-up about LE edema, 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 Next Visit Focus/Plan Next Note Type Treatment Note Next Visit Plan Pt to DC to community based exercise program or private personal training.
--- NOTE | 2019-06-27 16:21 | PT.OTN ---
Current Diagnoses Multiple sclerosis (06/27/19) Weakness (06/27/19) Physical Therapy Treatment Note PT-OP-A Visit Information Start: 04/07/19 12:57 Freq: Status: Active Protocol: Document 06/27/19 11:45 LJ (Rec: 06/27/19 16:18 LJ [id number]) Out-Patient Physical Therapy Visit Information Visit Information Visit Type Aquatic Treatment Note Visit Start Time 11:45 Visit Stop Time 12:30 Total Visit Minutes 45 Visit Number 22/unlimited Number of RETAIL SALESWORKER Visits 3 PT-OP-B Current Condition Start: 04/07/19 12:57 Freq: Status: Active Protocol: Document 04/07/19 12:14 MB (Rec: 04/07/19 14:06 MB [id number]) Current Condition History of Current Condition Onset Date Progressive Current Complaints Pt reports gradual inability to walk and increasing buckling of her legs History of Current Condition Hx progressive MS, right ankle fusion and back surgery. Progressive trouble with walking Prior Treatments and Tests Spine and right ankle sxs, PT, pt states she just started a medication for LE spasming, cannot state what medication Treatment Goals Patient/Caregiver Goals To walk with walker. Her goal is to be able to walk outside. She first states that she would like to get back to walking a mile daily but she then appears to communicate that this is unlikely given her current presentaion in setting of progressive disease process. Prior Functional Status Baseline Function- ADL's Needs Assist Baseline Function- Mobility Needs Assist Baseline Function- Gait Currently, unable to walk d/t falling. Has been transferring and using w/c Baseline Function- Other Pt states she was walking with walker 3 weeks ago and when her legs collapsed and she fell. EMS had to help get her off of the floor. Current Functional Impairments (Reported) Functional Limitations- ADL's She reports mod I with showering while sitting on shower chair and use of rails as needed. Asst to tie her shoes. She performs ADL tasks sitting. Functional Limitations- Mobility/Gait Currently, unable to take a step without LEs buckling Personal Factors Other Personal Factors That May Effect Progressive disease, right Therapy/Recovery ankle fusion that pt states is failing and LLE flexion tone and spasming pain up to 9-10 /10 are barriers to PT. PT-OP-C Subjective Start: 04/07/19 12:57 Freq: Status: Active Protocol: Document 06/27/19 11:45 LJ (Rec: 06/27/19 16:18 LJ [id number]) OP-PT Subjective Patient Comments Patient Comments Pt reports she is still experiencing LBP in the morning but it lessens after she gets moving. States her is sick and she drove herself to the pool. PT-OP-D Balance Start: 04/07/19 12:57 Freq: Status: Active Protocol: Document 04/07/19 14:10 MB (Rec: 04/07/19 14:45 MB [id number]) OP-PT Balance Assessment Sitting Balance Static Sitting Balance Ability Good Dynamic Sitting Balance Ability Good Sitting Balance Comments UE support for sitting balance and must hold onto plinth when bending down to reach for her shoe to put it on. Standing Balance Static Standing Balance Ability Poor Dynamic Standing Balance Ability Poor Standing Balance Comments Pt holds onto chair in front of her for static standing 10 sec. She presents with B leg fatigue/buckling and uses heavy UE support. Pt attempts to lift one foot and then the other but the single stance leg (both right and left when single stance) deanna, requiring her to sit. CGA. Balance Tests Other Other Balance Tests Performed Pt unable to tolerate sit to stand testing trial or other static standing tests d/t LE buckling. Morgan Fall Scale Copyright Permission PT-OP-G Mobility & Gait Start: 04/07/19 12:57 Freq: Status: Active Protocol: Document 04/12/19 12:01 MB (Rec: 04/12/19 12:13 MB [id number]) OP Mobility Evaluation Transfers Sit to Stand Cues to lock w/c and rollator with sit to stand trials from one to the another and back. Pt occ performs a SPT turn and occ performs transfer facing surface she is transferring to (NuStep or w/c), holding onto surface she is transferring to and then reaching around as she pivots or takes small steps to sit. Wheelchair Management Type of Wheelchair Standard w/c Assessment Details Pt holds one leg up with the other foot occ, pushes wheelchair with UEs OP Gait Assessment Gait Gait Assistance Required: Contact Guard Assist Assistive Devices Assistive Device Front Wheeled Walker,4 Wheeled Walker Gait Deviations General Gait Pattern Decreased Stride Length, Decreased Feet Clearance, Flexed Trunk,Narrow Based Gait ,Step-to Gait Factors Limiting Gait Function Factors Limiting Gait Function Abnormal Tonal Influences, Decreased Activity Tolerance, Decreased Strength,Limited Range of Motion,Pain Comments Gait Comments Gait trained 20'x4 and 40'x2; equally divided between use of her rollator and hospital 2WRW. Pt presents with increased knee flexion and buckling, greater on the right , right ankle fusion and little push off, improved left PF tone with WB, step-to gait , quick fatigue, occ c/o right calf discomfort. She has heavy use of UEs, flexed trunk . PT-OP-J Posture/Palpation/Skin Start: 04/07/19 12:57 Freq: Status: Active Protocol: Document 04/07/19 14:10 MB (Rec: 04/07/19 14:45 MB [id number]) Skin Assessment Edema Assessment Right Leg Comments Mild pitting edema B LEs proximal ankle to foot Left Leg Comments Mild pitting edema B LEs proximal ankle to foot PT-OP-K Range of Motion Start: 04/07/19 12:57 Freq: Status: Active Protocol: Document 04/07/19 14:10 MB (Rec: 04/07/19 14:45 MB [id number]) Hip Goniometric Range of Motion Hip ROM Limitations Comments LLE hip flexor contraction movements with attempted AROM left LE. Right hip flexion with ability to briefly lift her right LE off the plinth in supine. Knee Goniometric Range of Motion Knee ROM Limitations Comments Extensor lag with attempted SLR on the right leg. She has arthritic joint changes. LLE spasming with all attempted AROM. Ankle and Foot Goniometric Range of Motion Ankle and Foot ROM Limitations Comments B ankles with limited ROM. Unable to test LLE d/t increased proximal joints flexor tone with attempted passive and active movement of foot. 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 PT-OP-M Strength Start: 04/07/19 12:57 Freq: Status: Active Protocol: Document 04/07/19 14:10 MB (Rec: 04/07/19 14:45 MB [id number]) Hip Strength Hip Manual Muscle Testing Right Flexion (L2) 2+ Poor+ Abduction 2- Poor- Comments Testing in supine. Pt is unable to perform any MMT on LLE d/t flexion tone easily provoked. Knee Strength Knee Manual Muscle Testing Right Flexion (S2) 3- Fair- Extension (L3) 3- Fair- Comments Testing in supine. Unable to perform MMT on LLE d/t flexion tone easily provoked. PT-OP-Q Treatments Start: 04/12/19 12:13 Freq: Status: Active Protocol: Document 06/24/19 14:30 LJ (Rec: 06/24/19 16:15 LJ [id number]) Cardio Equipment Recumbent Stepper (Sci-Fit) Duration (Minutes) 20 Resistance 3 Therapeutic Exercises Sitting Exercises dorsiflexion Side bilateral Equipment Used #7 on right foot, 5 on left Reps/Minutes 20 sit to stand Reps/Minutes 8 seated march Side bilateral Equipment Used #5 weight on knee Reps/Minutes 2x15 Gait Training Gait Activity Multiple gait activities to assess speed, balance, transfers pre-gait Device Used 4WW Surface verbal and manual cues Treatment Focus 6 min Comments Ongoing leg length discrepancy and LE changes.Consider trying heel lift in left shoe. 1 Description foward gait Device Used //bar, Level of Assistance CGA Surface level Distance/Duration 10 ft //bar, 15 ft x2 4ww Treatment Focus knee extension for gait in home endurance Comments occasional cues for LLE knee extension PT-OP-S Aquatic Treatment Start: 04/12/19 12:13 Freq: Status: Active Protocol: Document 06/27/19 11:45 LJ (Rec: 06/27/19 16:18 LJ [id number]) Aquatics Treatment Pool Entry/Exit Pool Entry/Exit Method Lift Assistance Standby Assistance Water Walking Sawyer September Water Level Chest Level Walking Equipment Ankle Weight- 2.5# Level of Assistance Standby Assistance Comments wt under L foot forward with FWW Level of Assistance Verbal Cues Comments no LOB Backwards Water Level Waist Level Walking Equipment Ankle Weight- 2.5# Comments cues to stand upright Sideways Water Level Chest Level Walking Equipment Ankle Weight- 2.5# Level of Assistance Standby Assistance Forwards Water Level Chest Level Walking Equipment Ankle Weight- 2.5# Level of Assistance Standby Assistance Lower Extremity Exercises stairs Details pool stairs Reps/Duration 3x3 steps Comments step to gait; railings HS curls Body Position Standing Water Level Chest Level Equipment Ankle Weight- 2.5# Reps/Duration 12 bilat TKE Details at wall Water Level Chest Level Equipment Ankle Weight- 2.5# Reps/Duration 10 each side Comments 5 sec hold at end range Hip CCW CW Details standing on box at wall Water Level Waist Level Equipment Ankle Weight- 2.5# Reps/Duration 10B Comments cues for extension hip ab/ad Details at wall Body Position Standing Water Level Waist Level Equipment Ankle Weight- 2.5# sit<>stand Details on stairs Water Level Waist Level Reps/Duration 10 Comments use of UEs on railing Assisted SLS Details at wall Body Position Standing Water Level Chest Level Comments independent hip extension Body Position Standing Water Level Chest Level Equipment Ankle Weight- 2.5# Reps/Duration 10 bilat Lower Extremity Stretches hip flexor Body Position Standing Water Level Chest Level Reps/Duration 2 x45 sec B Comments at wall HS Body Position Standing Water Level Chest Level Equipment Large Noodle Upper Extremity Exercises ab/ad, flex/ext Details freestanding Body Position Standing Water Level Chest Level Equipment sm BBs Reps/Duration 10x Upper Extremity Stretches pec stretch Details forward walking w/paddles Reps/Duration 30m Comments cues for posture Spinal Exercises spinal extension Details spinal extension to correct forward lean Body Position Standing Water Level Chest Level Equipment Ankle Weight- 2.5# Reps/Duration 1 min Comments extend and hold position with handhold on wall Balance static standing balance Body Position Standing Water Level Chest Level Reps/Duration 2 min Comments no handhold Tionesta Activities Tionesta Activities Bicycle,Cross Country Equipment lg belt; #2.5 Duration 9 min PT-OP-T Assessment and Plan Start: 04/07/19 12:57 Freq: Status: Active Protocol: Document 06/27/19 11:45 ETHAN (Rec: 06/27/19 16:18 ETHAN [id number]) Physical Therapy Assessment Rehab Potential Rehabilitation Potential Fair Evaluation Complexity Number of Personal Factors/Comorbidities 3 or More Number of Body Systems Impaired 1-2 Clinical Presentation at Evaluation Evolving Impairments Impairments Activity Tolerance,Balance, Coordination,Edema,Functional Activities,Functional Mobility ,Gait,Integument,Pain,Posture, ROM,Sensation,Soft Tissue Mobility,Strength,Tone, Transfers Other Impairments Decreased proprioception all left toes. R toes are intact. Decreased sensation to light touch all dermatomes LLE. Other Concerns Fall Risk High Barriers to Rehabilitation Multiple body systems affected including central ( progressive disease, MS; history of lumbar surgery, reports knee and foot changes (right ankle fusion) and knee for TKR) Goals 8 Skimmer Reverberatory Goal (LTG) Pt will perform aquatic HEP with I by 07/11/19. LTG Duration 6 weeks 7 Usp Goal (LTG) Pt will demonstrate safe pool entry and exit with asst from by 07/11/19. LTG Duration 6 weeks 6 Usp Goal (LTG) Pt will deny falls for 6 weeks by 07/11/19. LTG Duration 6 weeks 5 Skimmer Reverberatory Goal (LTG) Pt will perform TUG in less than 25 sec to improve functional I and decrease fall risk by 07/11/19. 06/02/19: pt performed TUG in 30 sec LTG Duration 6 weeks Four Skimmer Reverberatory Goal (LTG) Pt will gait train 75 feet with superv with RW by . 06/02/19 pt performs gait training with superv with rollator 50 feet LTG Duration 6 weeks 3 Usp Goal (LTG) Pt will perform progressive HEP with I by 07/11/19. 06/02/19: Pt is perform mini sit to stands and ball squeezes LTG Duration 6 weeks 2 Usp Goal (LTG) Pt will perform 5 repeated reps of sit<->design engineer 13 sec with mod I without LE buckling to reduce fall risk by . 06/02/19: pt performs 4 reps sit to stand with UE support in 13 sec LTG Duration 6 weeks 1 Skimmer Reverberatory Goal (LTG) Pt will maintain standing balance with mod I and use of LRAD for at least 45 sec to decrease fall risk and prepare for gait by 07/05/19. 06/02/19: MET. pt is able to stand 45 sec with rollator and without rollator asst with superv Progress Towards Goals Progress Towards Goals Progressing Toward Goals,Slow Progress due to Activity Tolerance Assessment Summary Assessment Pt c/o some back pain with ambulation and standing exercises which was relieved in deep water exercising. Pt requires cueing for posture which she is able to correct promptly. Improving with balance and gait as well as static standing. It is this RETAIL SALESWORKER's opinion that prt would benefit from lift in left shoe to even out leg length discrepancy. HS need to be stretched periodically during exercising to reinforce straightening legs during stance phase of gait Physical Therapy Plan Frequency and Duration Frequency of Treatment 2x/Week Duration of Treatment 6 weeks Plan of Care Start Date 06/02/19 Plan of Care End Date 07/11/19 Therapeutic Interventions Therapeutic Interventions Aquatic Therapy,Balance Training,Coordination Training ,Gait Training,Home Exercise Program,Manual Therapy, Neuromuscular Re-education, Patient/Caregiver Education, Self-Care/Home Management, Taping,Therapeutic Activities, Therapeutic Exercises, Wheelchair Management Modalities Cold Pack/Ice Massage,Electric Stimulation,Ultrasound Other Referrals/Consults Referrals/Consults Recommended Doctor follow-up about LE edema, 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 Next Visit Focus/Plan Next Note Type Treatment Note Next Visit Plan Pt to DC after next appointment on 07/01 to community based exercise program or private personal training.
--- NOTE | 2019-07-01 13:45 | PT.OTN ---
Current Diagnoses Multiple sclerosis (07/01/19) Weakness (07/01/19) Physical Therapy Treatment Note PT-OP-A Visit Information Start: 04/07/19 12:57 Freq: Status: Active Protocol: Document 07/01/19 13:10 MB (Rec: 07/01/19 13:45 MB [id number]) Out-Patient Physical Therapy Visit Information Visit Information Visit Type Treatment Note Visit Start Time 13:10 Visit Stop Time 13:43 Total Visit Minutes 33 Visit Number 23/unlimited PT-OP-B Current Condition Start: 04/07/19 12:57 Freq: Status: Active Protocol: Document 04/07/19 12:14 MB (Rec: 04/07/19 14:06 MB [id number]) Current Condition History of Current Condition Onset Date Progressive Current Complaints Pt reports gradual inability to walk and increasing buckling of her legs History of Current Condition Hx progressive MS, right ankle fusion and back surgery. Progressive trouble with walking Prior Treatments and Tests Spine and right ankle sxs, PT, pt states she just started a medication for LE spasming, cannot state what medication Treatment Goals Patient/Caregiver Goals To walk with walker. Her goal is to be able to walk outside. She first states that she would like to get back to walking a mile daily but she then appears to communicate that this is unlikely given her current presentaion in setting of progressive disease process. Prior Functional Status Baseline Function- ADL's Needs Assist Baseline Function- Mobility Needs Assist Baseline Function- Gait Currently, unable to walk d/t falling. Has been transferring and using w/c Baseline Function- Other Pt states she was walking with walker 3 weeks ago and when her legs collapsed and she fell. EMS had to help get her off of the floor. Current Functional Impairments (Reported) Functional Limitations- ADL's She reports mod I with showering while sitting on shower chair and use of rails as needed. Asst to tie her shoes. She performs ADL tasks sitting. Functional Limitations- Mobility/Gait Currently, unable to take a step without LEs buckling Personal Factors Other Personal Factors That May Effect Progressive disease, right Therapy/Recovery ankle fusion that pt states is failing and LLE flexion tone and spasming pain up to 9-10 /10 are barriers to PT. PT-OP-C Subjective Start: 04/07/19 12:57 Freq: Status: Active Protocol: Document 07/01/19 13:10 MB (Rec: 07/01/19 13:45 MB [id number]) OP-PT Subjective Patient Comments Patient Comments Pt is feeling more limber. She has better balance. She could still work on her balance. She uses walker all the time and not the w/c. She uses the cane to get in the car. She can get up the step at home with walker and rails. She is going to con't with aquatic therapy and using NuStep at the pool gym. Her strength feels so much better. She can move in and out of bed by herself. PT-OP-D Balance Start: 04/07/19 12:57 Freq: Status: Active Protocol: Document 04/07/19 14:10 MB (Rec: 04/07/19 14:45 MB [id number]) OP-PT Balance Assessment Sitting Balance Static Sitting Balance Ability Good Dynamic Sitting Balance Ability Good Sitting Balance Comments UE support for sitting balance and must hold onto plinth when bending down to reach for her shoe to put it on. Standing Balance Static Standing Balance Ability Poor Dynamic Standing Balance Ability Poor Standing Balance Comments Pt holds onto chair in front of her for static standing 10 sec. She presents with B leg fatigue/buckling and uses heavy UE support. Pt attempts to lift one foot and then the other but the single stance leg (both right and left when single stance) deanna, requiring her to sit. CGA. Balance Tests Other Other Balance Tests Performed Pt unable to tolerate sit to stand testing trial or other static standing tests d/t LE buckling. Morgan Fall Scale Copyright Permission PT-OP-G Mobility & Gait Start: 04/07/19 12:57 Freq: Status: Active Protocol: Document 04/12/19 12:01 MB (Rec: 04/12/19 12:13 MB [id number]) OP Mobility Evaluation Transfers Sit to Stand Cues to lock w/c and rollator with sit to stand trials from one to the another and back. Pt occ performs a SPT turn and occ performs transfer facing surface she is transferring to (NuStep or w/c), holding onto surface she is transferring to and then reaching around as she pivots or takes small steps to sit. Wheelchair Management Type of Wheelchair Standard w/c Assessment Details Pt holds one leg up with the other foot occ, pushes wheelchair with UEs OP Gait Assessment Gait Gait Assistance Required: Contact Guard Assist Assistive Devices Assistive Device Front Wheeled Walker,4 Wheeled Walker Gait Deviations General Gait Pattern Decreased Stride Length, Decreased Feet Clearance, Flexed Trunk,Narrow Based Gait ,Step-to Gait Factors Limiting Gait Function Factors Limiting Gait Function Abnormal Tonal Influences, Decreased Activity Tolerance, Decreased Strength,Limited Range of Motion,Pain Comments Gait Comments Gait trained 20'x4 and 40'x2; equally divided between use of her rollator and hospital 2WRW. Pt presents with increased knee flexion and buckling, greater on the right , right ankle fusion and little push off, improved left PF tone with WB, step-to gait , quick fatigue, occ c/o right calf discomfort. She has heavy use of UEs, flexed trunk . PT-OP-J Posture/Palpation/Skin Start: 04/07/19 12:57 Freq: Status: Active Protocol: Document 04/07/19 14:10 MB (Rec: 04/07/19 14:45 MB [id number]) Skin Assessment Edema Assessment Right Leg Comments Mild pitting edema B LEs proximal ankle to foot Left Leg Comments Mild pitting edema B LEs proximal ankle to foot PT-OP-K Range of Motion Start: 04/07/19 12:57 Freq: Status: Active Protocol: Document 04/07/19 14:10 MB (Rec: 04/07/19 14:45 MB [id number]) Hip Goniometric Range of Motion Hip ROM Limitations Comments LLE hip flexor contraction movements with attempted AROM left LE. Right hip flexion with ability to briefly lift her right LE off the plinth in supine. Knee Goniometric Range of Motion Knee ROM Limitations Comments Extensor lag with attempted SLR on the right leg. She has arthritic joint changes. LLE spasming with all attempted AROM. Ankle and Foot Goniometric Range of Motion Ankle and Foot ROM Limitations Comments B ankles with limited ROM. Unable to test LLE d/t increased proximal joints flexor tone with attempted passive and active movement of foot. 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 PT-OP-M Strength Start: 04/07/19 12:57 Freq: Status: Active Protocol: Document 04/07/19 14:10 MB (Rec: 04/07/19 14:45 MB [id number]) Hip Strength Hip Manual Muscle Testing Right Flexion (L2) 2+ Poor+ Abduction 2- Poor- Comments Testing in supine. Pt is unable to perform any MMT on LLE d/t flexion tone easily provoked. Knee Strength Knee Manual Muscle Testing Right Flexion (S2) 3- Fair- Extension (L3) 3- Fair- Comments Testing in supine. Unable to perform MMT on LLE d/t flexion tone easily provoked. PT-OP-Q Treatments Start: 04/12/19 12:13 Freq: Status: Active Protocol: Document 07/01/19 13:10 MB (Rec: 07/01/19 13:45 MB [id number]) Cardio Equipment Recumbent Stepper (Sci-Fit) Duration (Minutes) 10 Resistance 1 Therapeutic Exercises Sitting Exercises sit to stand Comments 4 reps 30 sec with hand support Gait Training Gait Activity Gait trials with rollator Comments TUG x3 with cues and improving time, gait training with rollator for distance with pt with decreased step-length and foot clearance d/t foot anomalies and postural changes , trouble standing upright PT-OP-S Aquatic Treatment Start: 04/12/19 12:13 Freq: Status: Active Protocol: Document 06/27/19 11:45 LJ (Rec: 06/27/19 16:18 LJ [id number]) Aquatics Treatment Pool Entry/Exit Pool Entry/Exit Method Lift Assistance Standby Assistance Water Walking [place] Water Level Chest Level Walking Equipment Ankle Weight- 2.5# Level of Assistance Standby Assistance Comments wt under L foot forward with FWW Level of Assistance Verbal Cues Comments no LOB Backwards Water Level Waist Level Walking Equipment Ankle Weight- 2.5# Comments cues to stand upright Sideways Water Level Chest Level Walking Equipment Ankle Weight- 2.5# Level of Assistance Standby Assistance Forwards Water Level Chest Level Walking Equipment Ankle Weight- 2.5# Level of Assistance Standby Assistance Lower Extremity Exercises stairs Details pool stairs Reps/Duration 3x3 steps Comments step to gait; railings HS curls Body Position Standing Water Level Chest Level Equipment Ankle Weight- 2.5# Reps/Duration 12 bilat TKE Details at wall Water Level Chest Level Equipment Ankle Weight- 2.5# Reps/Duration 10 each side Comments 5 sec hold at end range Hip CCW CW Details standing on box at wall Water Level Waist Level Equipment Ankle Weight- 2.5# Reps/Duration 10B Comments cues for extension hip ab/ad Details at wall Body Position Standing Water Level Waist Level Equipment Ankle Weight- 2.5# sit<>stand Details on stairs Water Level Waist Level Reps/Duration 10 Comments use of UEs on railing Assisted SLS Details at wall Body Position Standing Water Level Chest Level Comments independent hip extension Body Position Standing Water Level Chest Level Equipment Ankle Weight- 2.5# Reps/Duration 10 bilat Lower Extremity Stretches hip flexor Body Position Standing Water Level Chest Level Reps/Duration 2 x45 sec B Comments at wall HS Body Position Standing Water Level Chest Level Equipment Large Noodle Upper Extremity Exercises ab/ad, flex/ext Details freestanding Body Position Standing Water Level Chest Level Equipment sm BBs Reps/Duration 10x Upper Extremity Stretches pec stretch Details forward walking w/paddles Reps/Duration 30m Comments cues for posture Spinal Exercises spinal extension Details spinal extension to correct forward lean Body Position Standing Water Level Chest Level Equipment Ankle Weight- 2.5# Reps/Duration 1 min Comments extend and hold position with handhold on wall Balance static standing balance Body Position Standing Water Level Chest Level Reps/Duration 2 min Comments no handhold [place] Activities [place] Activities Bicycle,Cross [place] Equipment lg belt; #2.5 Duration 9 min PT-OP-T Assessment and Plan Start: 04/07/19 12:57 Freq: Status: Active Protocol: Document 07/01/19 13:10 MB (Rec: 07/01/19 13:45 MB [id number]) Physical Therapy Assessment Goals 8 Management Department Chair Goal (LTG) Pt will perform aquatic HEP with I by 07/11/19. 07/01/19: Pt is performing water walking by herself and will con't with callisthenics instructor for exercise upon d /c. LTG Duration 6 weeks 7 Fpc Goal (LTG) Pt will demonstrate safe pool entry and exit with asst from by 07/11/19. 07/01/19: Pt will have the asst of callisthenics instructor to get in and out of the pool at d/c. LTG Duration 6 weeks 6 Management Department Chair Goal (LTG) Pt will deny falls for 6 weeks by 07/11/19. 07/01/19: Pt denies falls. LTG Duration 6 weeks 5 Fpc Goal (LTG) Pt will perform TUG in less than 25 sec to improve functional I and decrease fall risk by 07/11/19. 07/01/19: Pt performed in 20 sec LTG Duration 6 weeks Four Management Department Chair Goal (LTG) Pt will gait train 75 feet with superv with RW by . 07/01/19: Pt gait trains 75' with rollator with superv LTG Duration 6 weeks 3 Management Department Chair Goal (LTG) Pt will perform progressive HEP with I by 07/11/19. 07/01/19: Pt is performing all HEP given so far and has not yet used NuStep at the pool. LTG Duration 6 weeks 2 Management Department Chair Goal (LTG) Pt will perform 5 repeated reps of sit<->nurse clinician 13 sec with mod I without LE buckling to reduce fall risk by . 07/01/19: 4 reps in 13 LTG Duration 6 weeks 1 Management Department Chair Goal (LTG) Pt will maintain standing balance with mod I and use of LRAD for at least 45 sec to decrease fall risk and prepare for gait by 07/05/19. 06/02/19: MET. pt is able to stand 45 sec with rollator and without rollator asst with superv Assessment Summary Assessment Pt has met the following PT goals since starting PT: performance of HEP, gait distance with superv and TUG goal. She has improved with sit to stands to walker and standing balance time/upright standing tolerance. She con't to require some asst in the pool and will have callisthenics instructor at d/c and start using the NuStep at the gym. She has maximized her OPPT potential. Will d/c PT. Physical Therapy Plan Other Referrals/Consults Referrals/Consults Recommended Doctor follow-up about LE edema, pt reports chronic B cellulitis Discharge Physical Therapy Discharge Comments Pt has maximized PT potential. Will d/c PT at this time and pt to con't with exercise at d /c.
== END 2019-07-01 14:00 ==
LOC: PHYS 13:00
PROVIDERS: PCP Family Medicine; Visit Provider Psychiatry & Neurology Neurology
DX: R53.1 Weakness (principal); G35 Multiple sclerosis
CPT/HCPCS: 97010; 97110; 97113; 97116; 97140; 97162; 97530; 97535

== ENCOUNTER 2019-08-19 14:37 | Emergency (ER) | payer MEDICARE, OTHER, SELFPAY ==
[2019-01-10 13:18] VITALS: BMI 36.7
[2019-08-19 15:27] VITALS: BP 179/75; PULSE 65; RESP 18; TEMP 36.6; O2SAT 98; BMI 32.5
--- NOTE | 2019-08-19 15:44 | DI.RAD.S_ITS ---
PROCEDURE: XR CHEST 1V INDICATIONS: CHEST PAIN TECHNIQUE: One view of the chest was acquired. COMPARISON: [facility], CHEST 2 VIEW, 11/22/2008, 15:52. [facility], CHEST 2 VIEW, 06/10/2013, 17:42. [facility], CHEST 1 VIEW, 06/12/2013, 7:32. FINDINGS: Surgical changes and devices: Lumbar spine fixation hardware is partially seen. Lungs and pleura: Lungs are clear. No pleural effusions or pneumothorax. Mediastinum: The cardiac contours are within normal limits. The aorta demonstrates calcification and tortuosity. Bones and chest wall: No suspicious bony lesions. Moderate dextroconvex thoracolumbar scoliosis is seen. Age-appropriate bony degenerative changes are seen. Overlying soft tissues appear unremarkable. IMPRESSION: No acute cardiopulmonary process is seen. Postoperative and degenerative changes are seen. Dictated by: Robert Flores M.D. on 08/19/2019 at 16:28 Approved by: Robert Flores M.D. on 08/19/2019 at 16:29
--- NOTE | 2019-08-19 15:46 | RT ---
Nurse Khalif assisted me with EKG. Pt sits upright in wheelchair (no gurneys or recumbent chairs available). I made annotation on EKG that the EKG was done in wheelchair.
[2019-08-19] MEDS: ASPIRIN 81 MG CHEW TAB 324 MG PO (15:56)
[2019-08-19 15:57] LABS: Add Manual Diff / Slide Review NO; Basophils Absolute Auto 100 /uL (0-100); Basophils Percent Auto 1.3 % (0-2); Eosinophils Absolute Auto 700 /uL (0-450); Eosinophils Percent Auto 8.1 % (2-4); Hematocrit 33.3 % (36-46); Hemoglobin 11.2 g/dL (12.0-16.0); Lymphocytes Absolute Auto 1900 /uL (1100-4500); Lymphocytes Percent Auto 21.7 % (25-40); Mean Corpuscular HGB Conc 33.7 % (30-36); Mean Corpuscular Hemoglobin 29.7 PG (26-34); Mean Corpuscular Volume 88.2 fL (80-100); Monocytes Absolute Auto 600 /uL (0-900); Monocytes Percent Auto 7.1 % (3-14); Neutrophils Absolute Auto 5400 /uL (1500-7000); Neutrophils Percent Auto 61.8 % (50-75); Platelet Count 308 X10^3/uL (150-400); Red Blood Cell Count 3.78 X10^6/uL (4.0-5.2); Red Cell Distribution Width 13.7 % (11.6-14.8); White Blood Cell Count 8.7 X10^3/uL (4.5-11.0)
[2019-08-19 16:13] LABS: Alanine Aminotransferase 16 IU/L (<35); Albumin 4.1 g/dL (3.5-5.0); Albumin Globulin Ratio 1.4 (1.0-2.8); Alkaline Phosphatase 84 U/L (38-126); Aspartate Aminotransferase 24 IU/L (14-36); Bilirubin Total 0.3 mg/dL (0.2-1.3); Blood Urea Nitrogen 36 mg/dL (7-17); Calcium 9.6 mg/dL (8.4-10.2); Carbon Dioxide 28 mmol/L (22-32); Chloride 108 mmol/L (98-107); Creatine Kinase 82 U/L (30-135); Estimated Glomerular Filt Rate 53.8 mL/min (>60); Globulin 2.9 g/dL (1.7-4.1); Glucose 90 mg/dL (80-110); HEMOLYSIS < 15 (0-50); Lipase 98 U/L (23-300); Potassium 3.6 mmol/L (3.4-5.1); Sodium 145 mmol/L (137-145)
[2019-08-19 16:25] LABS: Troponin I < 0.012 ng/mL (0.01-0.034)
--- NOTE | 2019-08-19 17:53 | DI.RAD.S_ITS ---
PROCEDURE: XR SHOULDER LT MIN 2V INDICATIONS: pain left shoulder/ uses walker a lot TECHNIQUE: 3 views of the shoulder were acquired. COMPARISON: [facility], , SHOULDER MINIMUM 2VIEW RIGHT, 10/13/2008, 9:54. FINDINGS: Bones: No fractures or dislocations. No suspicious bony lesions. Visualized ribs appear intact. Age-appropriate degenerative changes are seen, including mild subacromial spurring. Soft tissues: No suspicious soft tissue calcifications. The visualized lung demonstrates an unremarkable appearance. IMPRESSION: Unremarkable imaging examination for age. Dictated by: Robert Flores M.D. on 08/19/2019 at 18:11 Approved by: Robert Flores M.D. on 08/19/2019 at 18:12
--- NOTE | 2019-08-19 19:13 | ED.EXTPRO ---
HPI - Extremity Problem <Jolene HoweCESILIA - Last Filed: 08/19/19 20:50> General Chief complaint: Extremity Problem,Nontraumatic Stated complaint: lt side pain Time Seen by Provider: 08/19/19 15:54 Source: patient Mode of arrival: Wheelchair Limitations: no limitations History of Present Illness HPI Narrative: 79yo female with history of MS, hypertension, presents to the emergency department complaining of left shoulder pain starting this morning. She states she was sitting in the car when she noticed a throbbing soreness in her left shoulder approximately 4/10 that was worse with movement that radiates down her arm occasionally and intermittently to her back. , Patient states recently she has had an exacerbation of her cellulitis in her leg and has been able to get to the swimming pool and has felt like her MS has declined. Her wrist was hurting her so she has been using her walker differently. She states she rests on her elbow instead of using her hand the past few days and is wondering if this may be the cough. However, she is concern that shoulder pain may be signaling heart attack. He denies any other symptoms such as shortness of breath, chest pain, fevers, chills, dizziness, swelling, redness, nausea, vomiting, diarrhea, or other concerns. Related Data Home Medications Medication Instructions Recorded Confirmed aspirin [Aspir-81] 81 mg PO BEDTIME #0 11/08/12 05/05/19 coenzyme Q10 300 mg PO DAILY #0 sgl 03/16/13 05/05/19 multivitamin [Multiple Vitamins] 1 tab PO QDAY #0 tab 05/09/16 05/05/19 Disabled Parking Permit 1 ea MISCELLANEOUS SEE INSTRUCTIONS 04/07/18 05/05/19 naproxen sodium 220 mg tablet 440 mg PO BID 12/13/18 05/05/19 vit C 50 mg-E 15 unit-zinc cit 4.5 1 tab PO DAILY tab 12/13/18 05/05/19 mg-lutein 2.5 mg-zeaxan chew tablet vitamin B complex 1 tab PO DAILY 12/13/18 05/05/19 Previous Rx's Medication Instructions Recorded telmisartan 80 1 tab PO QDAY #90 tab 11/01/18 mg-hydrochlorothiazide 25 mg tablet amlodipine 10 mg tablet 10 mg PO DAILY #90 tab 11/22/18 metoprolol succinate 50 mg 50 mg PO BID #180 tab 11/22/18 tablet,extended release 24 hr albuterol sulfate 90 mcg/actuation 2 puff INHALATION Q4HP PRN #18 gram 01/18/19 aerosol inhaler furosemide 40 mg tablet 40 mg PO QDAY #90 tab 01/18/19 potassium chloride 20 mEq 20 meq PO QDAY #90 tab 01/18/19 tablet,extended release(part/cryst) simvastatin 40 mg tablet 40 mg PO BEDTIME #90 tab 04/11/19 baclofen 10 mg tablet 10 mg PO TID PRN #90 tab 04/25/19 mupirocin 2 % topical ointment 2 % TOPICAL BID #30 gram 06/20/19 hydrocodone 5 mg-acetaminophen 325 1 tab PO Q6H #14 tab 07/20/19 mg tablet omeprazole 40 mg capsule,delayed 40 mg PO QDAY #90 cap 07/20/19 release Allergies Allergy/AdvReac Type Severity Reaction Status Date / Time adhesive tape [ADHESIVE TAPE] Allergy Severe Blisters Verified 08/19/19 15:27 amoxicillin [From AUGMENTIN] Allergy Severe SWELLING Verified 08/19/19 15:27 clavulanic acid Allergy Severe SWELLING Verified 08/19/19 15:27 [From AUGMENTIN] codeine [CODEINE] Allergy Severe ITCHY Verified 08/19/19 15:27 SKIN, RED AND PEELED povidone-iodine Allergy Severe BLISTERS Verified 08/19/19 15:27 [POVIDONE-IODINE] SKIN Sulfa (Sulfonamide Allergy Severe ITCHY Verified 08/19/19 15:27 Antibiotics) SKIN, RED [SULFA (SULFONAMIDE AND PEELED ANTIBIOTICS)] vancomycin [VANCOMYCIN] Allergy Severe ITCHING Verified 08/19/19 15:27 AND BURNING Review of Systems <CESILIA James - Last Filed: 08/19/19 20:50> Review of Systems Narrative: REVIEW OF SYSTEMS: GENERAL: Denies fever or chills. HENT: No head trauma. EYES: No double vision or vision loss. CARDIOVASCULAR: No chest pain or syncope. RESPIRATORY: No shortness of breath. . GASTROINTESTINAL: No nausea, vomiting, diarrhea, or constipation. GENITOURINARY: No flank pain or dysuria. MUSCULOSKELETAL: Complains of left shoulder pain, see HPI. INTEGUMENTARY: No rash, lesions, or pruritus. NEURO: Patient states she has some tingling but states this happened every day as a result of her MS. PSYCH: No behavior or mood changes. Patient History <CESILIA James - Last Filed: 08/19/19 20:50> Medical History Anxiety (Acute) Arthritis (Acute) Asthma (Chronic) Blister (Acute) Diastolic heart failure (Chronic) Eczema of both hands (Acute) Edema (Acute) Frequent UTI (Acute) GERD (gastroesophageal reflux disease) (Acute) Hyperlipidemia (Chronic) Hypertension (Inactive) Hypertension (Chronic) Multiple sclerosis (Chronic) Preoperative clearance (Inactive) Retention of urine, unspecified (Chronic) RLS (restless legs syndrome) (Chronic) Urge and stress incontinence (Chronic) Surgical History H/O arthroscopic knee surgery (Resolved) Hx of foot surgery (Acute) Hx of tonsillectomy (Acute) S/P wrist surgery (Acute) Status post bilateral cataract extraction (Acute) Status post hysterectomy with oophorectomy (Resolved) Status post laparoscopic cholecystectomy (Resolved) Family History Father Congestive heart failure Emphysema Mother Lymphoma Social History marital status: household members: spouse Smoking Status: Former smoker alcohol intake: never substance use type: does not use Smoking Status: Former smoker alcohol intake frequency: 0-2 drinks per day Substance Use Type: does not use Exam <CESILIA James - Last Filed: 08/19/19 20:50> Initial Vital Signs Initial Vital Signs: Vital Signs Temperature 97.9 F 08/19/19 15:27 Pulse Rate 65 08/19/19 15:27 Respiratory Rate 18 08/19/19 15:27 Blood Pressure 179/75 H 08/19/19 15:27 Pulse Oximetry 98 08/19/19 15:27 PHYSICAL EXAMINATION: GENERAL: Well groomed, alert, and cooperative. Answers questions promptly and appropriately. Vital signs noted. HENT: Normocephalic, atraumatic. Ear canals patent. Oral mucosa is pink and moist. EYES: Conjunctiva pink, sclera white, no periorbital swelling. CHEST: Normal to inspection and without deformities. CARDIOVASCULAR: S1 and S2 sounds normal. Regular rate and rhythm, no murmurs, clicks, or bruits. RESPIRATORY: Normal respiratory rate, trachea midline, airway patent. No stridor, nasal flaring or accessory muscle use. Lungs are clear in all [place] without wheeze, rhonchi, or crackles. GASTROINTESTINAL: Bowel sounds normoactive. Abdomen is soft and non-tender. No organomegaly. MUSCULOSKELETAL: Pain was reproduced with palpation to posterior aspect of left shoulder joint, increased pain with internal rotation and arm extension. No erythema or ecchymosis. Equal area operations manager strength in deltoid strength bilaterally. Equal tone and mass bilaterally. EXTREMITIES: CMS intact. Moves all extremities. SKIN: Warm, dry, soft, appropriate color for ethnicity. No lesions, rashes, or wounds. NEURO: Alert and Oriented X 3. Good coordination. No ataxia, or sensory deficits, or cognitive issues. PSYCH: Appropriate affect and mood. <Katiuska Maldonado DO - Last Filed: 08/19/19 21:23> Initial Vital Signs Initial Vital Signs: Vital Signs Temperature 97.9 F 08/19/19 15:27 Pulse Rate 65 08/19/19 15:27 Respiratory Rate 18 08/19/19 15:27 Blood Pressure 179/75 H 08/19/19 15:27 Pulse Oximetry 98 08/19/19 15:27 Scores <CESILIA James - Last Filed: 08/19/19 20:50> HEART Score Heart Score history: Slightly Suspicious Heart Score EKG: Normal Heart Score Age: > or = 65 years old Heart Score risk factors: 1-2 risk factors Heart Score troponin: < or = to normal limit Heart Score Total: 3 Course <CESILIA James - Last Filed: 08/19/19 20:50> Course Course Narrative: Patient states pain has continue to resolve over the course of the emergency department stay. Orders Ordered: ED Orders 08/19/19 15:44 XR chest 1V Stat 08/19/19 15:45 Complete Blood Count AUTO DIFF Stat Comprehensive Metabolic Panel Stat Lipase Stat Troponin & CK Cardiac Panel Stat 08/19/19 17:53 XR shoulder LT min 2V Stat Discontinued Medications Aspirin (Aspirin Chew) 324 mg PO NOW ONE Stop: 08/19/19 15:44 Last Admin: 08/19/19 15:56 Dose: 324 mg Documented by: AURA Consultations Consultation #1: Patient staffed Dr. aMldonado. Vital Signs Vital signs: Vital Signs - 8 hr 08/19/19 15:27 Temperature 97.9 F Pulse Rate 65 Respiratory Rate 18 Blood Pressure 179/75 H Pulse Oximetry 98 <Katiuska Maldonado DO - Last Filed: 08/19/19 21:23> Orders Ordered: ED Orders 08/19/19 15:44 XR chest 1V Stat 08/19/19 15:45 Complete Blood Count AUTO DIFF Stat Comprehensive Metabolic Panel Stat Lipase Stat Troponin & CK Cardiac Panel Stat 08/19/19 17:53 XR shoulder LT min 2V Stat Discontinued Medications Aspirin (Aspirin Chew) 324 mg PO NOW ONE Stop: 08/19/19 15:44 Last Admin: 08/19/19 15:56 Dose: 324 mg Documented by: AURA Vital Signs Vital signs: Vital Signs - 8 hr 08/19/19 15:27 Temperature 97.9 F Pulse Rate 65 Respiratory Rate 18 Blood Pressure 179/75 H Pulse Oximetry 98 MDM - Extremity (Nontraumatic) <CESILIA James - Last Filed: 08/19/19 20:50> Medical Records Attestation: I reviewed the patient's medical records. Lab Data Attestation: I reviewed the patient's lab results. Result diagrams: 08/19/19 15:45 08/19/19 15:45 Labs: Lab Results 08/19/19 08/19/19 Range/Units 15:45 15:45 WBC 8.7 (4.5-11.0) X10^3/uL RBC 3.78 L (4.0-5.2) X10^6/uL Hgb 11.2 L (12.0-16.0) g/dL Hct 33.3 L (36-46) % MCV 88.2 (80-100) fL MCH 29.7 (26-34) PG MCHC 33.7 (30-36) % RDW 13.7 (11.6-14.8) % Plt Count 308 (150-400) X10^3/uL Neut % (Auto) 61.8 (50-75) % Lymph % (Auto) 21.7 L (25-40) % Crane % (Auto) 7.1 (3-14) % Eos % (Auto) 8.1 H (2-4) % Baso % (Auto) 1.3 (0-2) % Neut # (Auto) 5400 (5996-3610) /uL Lymph # (Auto) 1900 (5201-5589) /uL Crane # (Auto) 600 (0-900) /uL Eos # (Auto) 700 H (0-450) /uL Baso # (Auto) 100 (0-100) /uL Sodium 145 (137-145) mmol/L Potassium 3.6 (3.4-5.1) mmol/L Chloride 108 H (98-107) mmol/L Carbon Dioxide 28 (22-32) mmol/L BUN 36 H (7-17) mg/dL Creatinine 1.00 (0.52-1.04) mg/dL Estimated GFR 53.8 L (>60) mL/min BUN/Creatinine Ratio 36.0 H (6-22) Glucose 90 (80-110) mg/dL Calcium 9.6 (8.4-10.2) mg/dL Total Bilirubin 0.3 (0.2-1.3) mg/dL AST 24 (14-36) IU/L ALT 16 (<35) IU/L Alkaline Phosphatase 84 (38-126) U/L Total Creatine Kinase 82 (30-135) U/L CK-MB (CK-2) TNP CK-MB (CK-2) Rel Index TNP Troponin I < 0.012 (0.01-0.034) ng/mL Total Protein 7.0 (6.3-8.2) g/dL Albumin 4.1 (3.5-5.0) g/dL Globulin 2.9 (1.7-4.1) g/dL Albumin/Globulin Ratio 1.4 (1.0-2.8) Lipase 98 (23-300) U/L Imaging Data Extremity x-ray #1: Radiologist's Impression: [address] [address] XRay Report Signed Patient: Larisa Villarreal LMR#: [id number] : 2Acct:[id number] Age/Sex: 79 / FDate of Service: 08/19/19 Loc: ED Accession Number: [id number] Procedure: XR shoulder LT min 2V Ordering Provider: Katiuska Maldonado D.O. PROCEDURE: XR SHOULDER LT MIN 2V INDICATIONS: pain left shoulder/ uses walker a lot TECHNIQUE: 3 views of the shoulder were acquired. COMPARISON: [facility], SHOULDER MINIMUM 2VIEW RIGHT, 10/13/2008, 9:54. FINDINGS: Bones: No fractures or dislocations. No suspicious bony lesions. Visualized ribs appear intact. Age-appropriate degenerative changes are seen, including mild subacromial spurring. Soft tissues: No suspicious soft tissue calcifications. The visualized lung demonstrates an unremarkable appearance. IMPRESSION: Unremarkable imaging examination for age. Dictated by: Robert Flores M.D. on 08/19/2019 at 18:11 Approved by: Robert Flores M.D. on 08/19/2019 at 18:12 Chest x-ray: Radiologist's Impression: [place] [address] XRay Report Signed Patient: Larisa Villarreal LMR#: [id number] : 2Acct:[id number] Age/Sex: 79 / FDate of Service: 08/19/19 Loc: ED Accession Number: [id number] Procedure: XR chest 1V Ordering Provider: Katiuska Maldonado D.O. PROCEDURE: XR CHEST 1V INDICATIONS: CHEST PAIN TECHNIQUE: One view of the chest was acquired. COMPARISON: [facility], CHEST 2 VIEW, 11/22/2008, 15:52. [facility], CHEST 2 VIEW, 06/10/2013, 17:42. [facility], CHEST 1 VIEW, 06/12/2013, 7:32. FINDINGS: Surgical changes and devices: Lumbar spine fixation hardware is partially seen. Lungs and pleura: Lungs are clear. No pleural effusions or pneumothorax. Mediastinum: The cardiac contours are within normal limits. The aorta demonstrates calcification and tortuosity. Bones and chest wall: No suspicious bony lesions. Moderate dextroconvex thoracolumbar scoliosis is seen. Age-appropriate bony degenerative changes are seen. Overlying soft tissues appear unremarkable. IMPRESSION: No acute cardiopulmonary process is seen. Postoperative and degenerative changes are seen. Dictated by: Robert Flores M.D. on 08/19/2019 at 16:28 Approved by: Robert Flores M.D. on 08/19/2019 at 16:29 ECG Data Interpretation: Sinus bradycardia, rate 59, RI interval 188, QTC 420. No ST elevation or ST depression, no T-wave abnormality, no ectopy. EKG was viewed by Dr. Maldonado per protocol. MDM Narrative Medical decision making narrative: 79-year-old female with history of MS who has been using her walker with her elbow over the past few days presents emergency department with a left shoulder pain which has resolved over the course emergency department stay. I suspect patient's symptoms are most likely caused by musculoskeletal etiology due to increased use of her arm while using her walker, pain is reproduced with palpation and movement, and lack of other concerning symptoms such as as chest pain. Less likely fracture due to negative x-ray, less likely cardiopulmonary etiology due to negative troponin, negative chest x-ray, resolving symptoms, and no other suspicious symptoms such as dizziness or high fevers. Patient's heart score of 3 due to age and HTN, she was encouraged to follow up with her primary care provider in the next week for further evaluation. She was encouraged to rest her joint and apply ice if needed. Very strict return precautions given for new or worsening symptoms such as chest pain, dizziness, syncope, or other concerns. Patient and agreed to plan of care verbalized understanding. <Katiuska Maldonado, DO - Last Filed: 08/19/19 21:23> Lab Data Labs: Lab Results 08/19/19 08/19/19 Range/Units 15:45 15:45 WBC 8.7 (4.5-11.0) X10^3/uL RBC 3.78 L (4.0-5.2) X10^6/uL Hgb 11.2 L (12.0-16.0) g/dL Hct 33.3 L (36-46) % MCV 88.2 (80-100) fL MCH 29.7 (26-34) PG MCHC 33.7 (30-36) % RDW 13.7 (11.6-14.8) % Plt Count 308 (150-400) X10^3/uL Neut % (Auto) 61.8 (50-75) % Lymph % (Auto) 21.7 L (25-40) % Crane % (Auto) 7.1 (3-14) % Eos % (Auto) 8.1 H (2-4) % Baso % (Auto) 1.3 (0-2) % Neut # (Auto) 5400 (0623-0004) /uL Lymph # (Auto) 1900 (9398-0083) /uL Crane # (Auto) 600 (0-900) /uL Eos # (Auto) 700 H (0-450) /uL Baso # (Auto) 100 (0-100) /uL Sodium 145 (137-145) mmol/L Potassium 3.6 (3.4-5.1) mmol/L Chloride 108 H (98-107) mmol/L Carbon Dioxide 28 (22-32) mmol/L BUN 36 H (7-17) mg/dL Creatinine 1.00 (0.52-1.04) mg/dL Estimated GFR 53.8 L (>60) mL/min BUN/Creatinine Ratio 36.0 H (6-22) Glucose 90 (80-110) mg/dL Calcium 9.6 (8.4-10.2) mg/dL Total Bilirubin 0.3 (0.2-1.3) mg/dL AST 24 (14-36) IU/L ALT 16 (<35) IU/L Alkaline Phosphatase 84 (38-126) U/L Total Creatine Kinase 82 (30-135) U/L CK-MB (CK-2) TNP CK-MB (CK-2) Rel Index TNP Troponin I < 0.012 (0.01-0.034) ng/mL Total Protein 7.0 (6.3-8.2) g/dL Albumin 4.1 (3.5-5.0) g/dL Globulin 2.9 (1.7-4.1) g/dL Albumin/Globulin Ratio 1.4 (1.0-2.8) Lipase 98 (23-300) U/L MDM Narrative Medical decision making narrative: Patient case was discussed with myself. Discharge Plan Departure Patient Disposition: Home Clinical Impression: Left shoulder pain Qualifiers: Chronicity: acute Qualified Code(s): M25.512 - Pain in left shoulder Discharge Date/Time: 08/19/19 19:24 Instructions: DI for Shoulder Pain Activity Restrictions/Additional Instructions: Thank you for entrusting me with your care today. As discussed, your x-rays and lab work are non-remarkable. Your exam indicates that your shoulder pain may be due to the increased stress in her shoulder from the way that use your walker. Please try and rest your shoulder as much as possible. I recommend following up with your primary care provider in the next 1-2 weeks for further evaluation if you continue to have pain. Return emergency department for new or worsening symptoms such as chest pain, shortness of breath, dizziness, fevers, uncontrollable vomiting, or other concerns. Prescriptions: No Action naproxen sodium [Aleve] 220 mg tablet 440 mg PO BID RF: 0 Ocuvite [facility] 50 mg-15 unit- 4.5 mg-2.5 mg tablet,chewable 1 tab PO DAILY RF: 0 vitamin B complex tablet 1 tab PO DAILY RF: 0 albuterol sulfate [Ventolin HFA] 90 mcg/actuation HFA aerosol inhaler 2 puff inhalation Q4HP PRN (Reason: Asthma) Qty: 18 RF: 4 furosemide 40 mg tablet 40 mg PO QDAY Qty: 90 RF: 3 potassium chloride [Klor-Con M20] 20 mEq tablet,ER particles/crystals 20 meq PO QDAY Qty: 90 RF: 3 omeprazole 40 mg capsule,delayed release(DR/EC) 40 mg PO QDAY Qty: 90 RF: 3 hydrocodone-acetaminophen 5-325 mg tablet 1 tab PO Q6H Qty: 14 RF: 0 aspirin [Aspir-81] 81 mg Tablet,Delayed Release (Dr/Ec) 81 mg PO BEDTIME Qty: 0 RF: 0 coenzyme Q10 300 mg Capsule 300 mg PO DAILY Qty: 0 RF: 0 multivitamin [Multiple Vitamins] 1 EACH tablet 1 tab PO QDAY Qty: 0 RF: 0 telmisartan-hydrochlorothiazid [Micardis HCT] 80-25 mg tablet 1 tab PO QDAY Qty: 90 RF: 3 amlodipine 10 mg tablet 10 mg PO DAILY Qty: 90 RF: 3 metoprolol succinate [Toprol XL] 50 mg tablet extended release 24 hr 50 mg PO BID Qty: 180 RF: 3 simvastatin [Zocor] 40 mg tablet 40 mg PO BEDTIME Qty: 90 RF: 3 baclofen 10 mg tablet 10 mg PO TID PRN (Reason: spasms) Qty: 90 RF: 3 mupirocin 2 % ointment 2 % Topical BID Qty: 30 RF: 1 Disabled Parking Permit 1 ea miscellaneous SEE INSTRUCTIONS RF: 0 Referrals: James Perez MD [Primary Care Provider] -
== END 2019-08-19 19:24 | disposition home or self-care (01) ==
PROVIDERS: Emergency Medicine; Emergency Provider Nurse Practitioner; PCP Family Medicine
DX: M25.512 Pain in left shoulder (principal); R07.9 Chest pain, unspecified; R00.1 Bradycardia, unspecified
CPT/HCPCS: 71045; 73030; 80053; 82550; 83690; 84484; 85025; 93005; 99284; 99285

== ENCOUNTER 2019-10-19 11:56 | Emergency (ER) | payer MEDICARE, OTHER, SELFPAY ==
[2019-01-10 13:18] VITALS: BMI 36.7
[2019-10-19 12:00] VITALS: BP 147/65; PULSE 65; RESP 15; TEMP 36.6; O2SAT 99; BMI 32.8
--- NOTE | 2019-10-19 12:49 | DI.CT.S_ITS ---
PROCEDURE: CT HEAD/BRAIN WO CON INDICATIONS: Fall, RIGHT sided frontal headache TECHNIQUE: Noncontrast 4.5 mm thick angled axial sections acquired from the foramen magnum to the vertex, with coronal and sagittal reformats. For radiation dose reduction, the following was used: automated exposure control, adjustment of mA and/or kV according to patient size. COMPARISON: [facility], MR, MR HEAD/BRAIN WO/W CON, 01/31/2019, 13:54. FINDINGS: Image quality: Excellent. CSF spaces: Basal cisterns are patent. No extra-axial fluid collections. The ventricles are symmetric in size and shape. Brain: No intracranial bleeds or masses. There is cerebral volume loss for age, with resultant ventricular and sulcal prominence. Periventricular deep white matter hypodensities are consistent with a combination of small vessel ischemic change and a known history of multiple sclerosis. There is intracranial internal carotid artery atherosclerosis. Skull and face: Calvarium and visualized facial bones appear intact, without suspicious lesions. Sinuses: Visualized sinuses and mastoids are clear. IMPRESSION: 1. No evidence acute stroke, hemorrhage, or mass. 2. Periventricular deep white matter hypodensities likely represent a combination of small vessel ischemic change and findings secondary to multiple sclerosis. Dictated by: Lew Albrecht M.D. on 10/19/2019 at 13:03 Approved by: Lew Albrecht M.D. on 10/19/2019 at 13:08
--- NOTE | 2019-10-19 13:00 | ED.FALL ---
HPI - Fall <Jolene HoweCESILIA - Last Filed: 10/19/19 22:04> General Chief Complaint: Fall Stated Complaint: fell thursday head now hurting Time Seen by Provider: 10/19/19 11:57 Source: patient Mode of arrival: Ambulatory History of Present Illness HPI Narrative: 79-year-old female with a history of MS, hypertension, and CHF, presents to the emergency department complaining of a dull aching headache for the past 2 days. She states the pain is a surging 6/10 with associated light sensitivity today. Patient states 2 days ago she was sitting in her office chair when she went to reach for an object to her right, she leaned too far to the right and she fell over sideways in her chair. She does not remember hitting her head. She was able to get up after the fall, denies any syncope. She denied any other injuries after the fall. However, later on that day an early to next day she noticed she developed a right-sided headache. She states the headache is worse today as described above. Patient denies any other symptoms such as joint pain (shoulder, hip, knee, ankle), double vision, vision loss, neck pain, vomiting, dizziness, chest pain, fevers, cough, nausea, diarrhea, or any other concerns. Patient states she does take aspirin but no other blood thinners. She states she does not have a history of current headaches. Patient does report about a month ago she had a febrile episode that lasted 2-3 days but resolved. Patient has taken Aleve which as helped. Related Data Home Medications Medication Instructions Recorded Confirmed aspirin [Aspir-81] 81 mg PO BEDTIME #0 11/08/12 08/31/19 coenzyme Q10 300 mg PO DAILY #0 sgl 03/16/13 08/31/19 multivitamin [Multiple Vitamins] 1 tab PO QDAY #0 tab 05/09/16 08/31/19 Disabled Parking Permit 1 ea MISCELLANEOUS SEE INSTRUCTIONS 04/07/18 08/31/19 naproxen sodium 220 mg tablet 440 mg PO BID 12/13/18 08/31/19 vit C 50 mg-E 15 unit-zinc cit 4.5 1 tab PO DAILY tab 12/13/18 08/31/19 mg-lutein 2.5 mg-zeaxan chew tablet vitamin B complex 1 tab PO DAILY 12/13/18 08/31/19 Previous Rx's Medication Instructions Recorded amlodipine 10 mg tablet 10 mg PO DAILY #90 tab 11/22/18 metoprolol succinate 50 mg 50 mg PO BID #180 tab 11/22/18 tablet,extended release 24 hr albuterol sulfate 90 mcg/actuation 2 puff INHALATION Q4HP PRN #18 gram 01/18/19 aerosol inhaler simvastatin 40 mg tablet 40 mg PO BEDTIME #90 tab 04/11/19 baclofen 10 mg tablet 10 mg PO TID PRN #90 tab 04/25/19 mupirocin 2 % topical ointment 2 % TOPICAL BID #30 gram 06/20/19 hydrocodone 5 mg-acetaminophen 325 1 tab PO Q6H #14 tab 07/20/19 mg tablet omeprazole 40 mg capsule,delayed 40 mg PO QDAY #90 cap 07/20/19 release furosemide 40 mg tablet 40 mg PO QDAY #90 tab 08/31/19 nitrofurantoin macrocrystal 50 mg 50 mg PO BEDTIME #90 cap 08/31/19 capsule potassium chloride 20 mEq 20 meq PO QDAY #90 tab 08/31/19 tablet,extended release(part/cryst) telmisartan 80 1 tab PO QDAY #90 tab 10/19/19 mg-hydrochlorothiazide 25 mg tablet Allergies Allergy/AdvReac Type Severity Reaction Status Date / Time adhesive tape [ADHESIVE TAPE] Allergy Severe Blisters Verified 10/19/19 12:07 amoxicillin [From AUGMENTIN] Allergy Severe SWELLING Verified 10/19/19 12:07 clavulanic acid Allergy Severe SWELLING Verified 10/19/19 12:07 [From AUGMENTIN] codeine [CODEINE] Allergy Severe ITCHY Verified 10/19/19 12:07 SKIN, RED AND PEELED povidone-iodine Allergy Severe BLISTERS Verified 10/19/19 12:07 [POVIDONE-IODINE] SKIN Sulfa (Sulfonamide Allergy Severe ITCHY Verified 10/19/19 12:07 Antibiotics) SKIN, RED [SULFA (SULFONAMIDE AND PEELED ANTIBIOTICS)] vancomycin [VANCOMYCIN] Allergy Severe ITCHING Verified 10/19/19 12:07 AND BURNING Review of Systems <CESILIA James - Last Filed: 10/19/19 22:04> Review of Systems Narrative: REVIEW OF SYSTEMS: GENERAL: Denies fever or chills. HENT: Reports headache, see HPI. EYES: No loss of vision, double vision, eye pain, or irritation. NECK: Deniesk neck pain. CARDIOVASCULAR: No chest pain or syncope. RESPIRATORY: No shortness of breath or cough. GASTROINTESTINAL: No nausea, vomiting, diarrhea, or constipation. GENITOURINARY: No flank pain or dysuria. MUSCULOSKELETAL: Patient does report left leg weakness but states this is normal for her MS. INTEGUMENTARY: No rash, lesions, or pruritus. NEURO: No numbness, tingling, memory loss, or confusion. PSYCH: No behavior or mood changes. Patient History <CESILIA James - Last Filed: 10/19/19 22:04> Medical History Anxiety (Acute) Arthritis (Acute) Asthma (Chronic) Blister (Acute) Diastolic heart failure (Chronic) Eczema of both hands (Acute) Edema (Acute) Frequent UTI (Acute) GERD (gastroesophageal reflux disease) (Acute) Hyperlipidemia (Chronic) Hypertension (Inactive) Hypertension (Chronic) Multiple sclerosis (Chronic) Preoperative clearance (Inactive) Retention of urine, unspecified (Chronic) RLS (restless legs syndrome) (Chronic) Urge and stress incontinence (Chronic) Surgical History H/O arthroscopic knee surgery (Resolved) Hx of foot surgery (Acute) Hx of tonsillectomy (Acute) S/P wrist surgery (Acute) Status post bilateral cataract extraction (Acute) Status post hysterectomy with oophorectomy (Resolved) Status post laparoscopic cholecystectomy (Resolved) Family History Father Congestive heart failure Emphysema Mother Lymphoma Social History marital status: household members: spouse Smoking Status: Former smoker alcohol intake: never substance use type: does not use Smoking Status: Former smoker alcohol intake frequency: 0-2 drinks per day Substance Use Type: does not use Exam <CESILIA James - Last Filed: 10/19/19 22:04> Initial Vital Signs Initial Vital Signs: Vital Signs Temperature 97.9 F 10/19/19 12:00 Pulse Rate 65 10/19/19 12:00 Respiratory Rate 15 10/19/19 12:00 Blood Pressure 147/65 H 10/19/19 12:00 Pulse Oximetry 99 10/19/19 12:00 PHYSICAL EXAMINATION: GENERAL: Well groomed, alert, and cooperative. Answers questions promptly and appropriately. Vital signs noted. HENT: Normocephalic. No bruising, hematoma, or lesions noted to head. Slight tenderness to palpation of right frontal area. Ear canals patent. Oral mucosa is pink and moist. EYES: PERRLA, EOMIs, conjunctiva pink, sclera white, no periorbital swelling. CHEST: Normal to inspection and without deformities. CARDIOVASCULAR: S1 and S2 sounds normal. Regular rate and rhythm, no murmurs, clicks, or bruits. No pedal edema. RESPIRATORY: Normal respiratory rate, trachea midline, airway patent. No stridor, nasal flaring or accessory muscle use. Lungs are clear in all [place] without wheeze, rhonchi, or crackles. MUSCULOSKELETAL: Equal research leader strength bilaterally, able to raise right leg. Difficulty raising left late, patient states this is due to MS. No pain with palpation of shoulders, elbows, hips, or knees. EXTREMITIES: CMS intact. Moves all extremities. SKIN: Warm, dry, soft, appropriate color for ethnicity. No lesions, rashes, or wounds. NEURO: Alert and Oriented X 3. Good coordination. No ataxia, or sensory deficits, or cognitive issues. CN III-XIII grossly intact. Observed minor photophobia. GCS 15. PSYCH: Appropriate affect and mood. <Trang Abad MD - Last Filed: 10/20/19 06:58> Initial Vital Signs Initial Vital Signs: Vital Signs Temperature 97.9 F 10/19/19 12:00 Pulse Rate 65 10/19/19 12:00 Respiratory Rate 15 10/19/19 12:00 Blood Pressure 147/65 H 10/19/19 12:00 Pulse Oximetry 99 10/19/19 12:00 Scores <CESILIA James - Last Filed: 10/19/19 22:04> Nexus Score for C-Spine Focal Neurologic deficit present: No Midline spinal tenderness present: No Altered level of conciousness present: No Intoxication present: No Distracting Injury Present: No Nexus Criteria for C-spine: 0 Course <CESILIA James - Last Filed: 10/19/19 22:04> Course Course Narrative: Patient able to ambulate to the bathroom without any difficulty. Patient was offered APAP at this time but declined. Orders Ordered: ED Orders 10/19/19 12:49 CT head/brain wo con Stat Consultations Consultation #1: Patient staffed with Dr. Abad, discussed imaging orders and results. Discussed plan of care to DC with return precautions. Vital Signs Vital signs: Vital Signs - 8 hr 10/19/19 12:00 Temperature 97.9 F Pulse Rate 65 Respiratory Rate 15 Blood Pressure 147/65 H Pulse Oximetry 99 <Trang Abad MD - Last Filed: 10/20/19 06:58> Orders Ordered: ED Orders 10/19/19 12:49 CT head/brain wo con Stat Vital Signs Vital signs: Vital Signs - 8 hr 10/19/19 12:00 Temperature 97.9 F Pulse Rate 65 Respiratory Rate 15 Blood Pressure 147/65 H Pulse Oximetry 99 MDM - Fall <CESILIA James - Last Filed: 10/19/19 22:04> Medical Records Attestation: I reviewed the patient's medical records. Lab Data Attestation: I reviewed the patient's lab results. Imaging Data CT scan - head: Radiologist's Impression: [place] [address] CT Scan Report Signed Patient: Larisa Villarreal LMR#: [id number] : [id number]:[id number] Age/Sex: 79 / FDate of Service: 10/19/19 Loc: ED Accession Number: [id number] Procedure: CT head/brain wo con Ordering Provider: Jolene Howe PROCEDURE: CT HEAD/BRAIN WO CON INDICATIONS: Fall, RIGHT sided frontal headache TECHNIQUE: Noncontrast 4.5 mm thick angled axial sections acquired from the foramen magnum to the vertex, with coronal and sagittal reformats. For radiation dose reduction, the following was used: automated exposure control, adjustment of mA and/or kV according to patient size. COMPARISON: [facility], , MR HEAD/BRAIN WO/W CON, 01/31/2019, 13:54. FINDINGS: Image quality: Excellent. CSF spaces: Basal cisterns are patent. No extra-axial fluid collections. The ventricles are symmetric in size and shape. Brain: No intracranial bleeds or masses. There is cerebral volume loss for age, with resultant ventricular and sulcal prominence. Periventricular deep white matter hypodensities are consistent with a combination of small vessel ischemic change and a known history of multiple sclerosis. There is intracranial internal carotid artery atherosclerosis. Skull and face: Calvarium and visualized facial bones appear intact, without suspicious lesions. Sinuses: Visualized sinuses and mastoids are clear. IMPRESSION: 1. No evidence acute stroke, hemorrhage, or mass. 2. Periventricular deep white matter hypodensities likely represent a combination of small vessel ischemic change and findings secondary to multiple sclerosis. Dictated by: Lew Albrecht M.D. on 10/19/2019 at 13:03 Approved by: Lew Albrecht M.D. on 10/19/2019 at 13:08 [facility] Narrative Medical decision making narrative: 79-year-old female with a history of MS, presents emergency department for a new onset headache with light sensitivity that occurred after a fall 2 days ago. She does not remember hitting her head but complains of right-sided frontal pain. She has taken in the which has helped. Patient takes aspirin but is not on any other blood thinners. C-spine cleared with nexus criteria. CT was ordered to rule out cranial hemorrhage. Low suspicion for cranial hemorrhage due to negative CT that was completed 2 days after fall, longer duration to imaging from time of injury is further reassuring, no new focal neurological deficits other than left leg weakness which is her norm per MS, and no severe mechanism of injury. I suspect patient may have a mild concussion due to headache and photophobia. She was encouraged to practice brain rest. Follow-up instructions were discussed. She was given strict return precautions for new or worsening symptoms. Patient agreed to plan of care verbalized understanding. Discharge Plan Departure Patient Disposition: Home Clinical Impression: Headache Qualifiers: Headache type: unspecified Headache chronicity pattern: acute headache Intractability: not intractable Qualified Code(s): R51 - Headache Fall Qualifiers: Encounter type: initial encounter Qualified Code(s): W19.XXXA - Unspecified fall, initial encounter Discharge Date/Time: 10/19/19 13:41 Instructions: DI for Concussion, DI for Headache Activity Restrictions/Additional Instructions: Thank you for entrusting me with your care today. As discussed, your head CT is negative for any acute concerning findings related to your fall such as bleeding or factures. There were some chronic changes sceen related to your MS but I do not believe this is causing your headache. After a fall, you can experience some concussion related symptoms such as headache, light sensitivity, occasional nausea, and increased tiredness. This should resolve after 1-2 weeks. I recommend decreasing activities that worsen symptoms such as bright lights, prolonged reading, prolonged screen time, or increased physical activity. You may take Tylenol with your Aleve if needed for pain. Please let your primary care provider know that you were seen in the emergency department, I am unsure what follow-up low look like at this point due to the current pandemic, he/she should be able to instruct you as far as follow-up. Return to the emergency department for any new or worsening symptoms especially double vision, vision loss, uncontrollable vomiting, passing out, severe pain, chest pain, shortness of breath, high fevers, or any other concern. Prescriptions: No Action naproxen sodium [Aleve] 220 mg tablet 440 mg PO BID RF: 0 Ocuvite Eye Health 50 mg-15 unit- 4.5 mg-2.5 mg tablet,chewable 1 tab PO DAILY RF: 0 vitamin B complex tablet 1 tab PO DAILY RF: 0 albuterol sulfate [Ventolin HFA] 90 mcg/actuation HFA aerosol inhaler 2 puff inhalation Q4HP PRN (Reason: Asthma) Qty: 18 RF: 4 omeprazole 40 mg capsule,delayed release(DR/EC) 40 mg PO QDAY Qty: 90 RF: 3 hydrocodone-acetaminophen 5-325 mg tablet 1 tab PO Q6H Qty: 14 RF: 0 furosemide 40 mg tablet 40 mg PO QDAY Qty: 90 RF: 3 potassium chloride [Klor-Con M20] 20 mEq tablet,ER particles/crystals 20 meq PO QDAY Qty: 90 RF: 3 nitrofurantoin macrocrystal 50 mg capsule 50 mg PO BEDTIME Qty: 90 RF: 3 aspirin [Aspir-81] 81 mg Tablet,Delayed Release (Dr/Ec) 81 mg PO BEDTIME Qty: 0 RF: 0 coenzyme Q10 300 mg Capsule 300 mg PO DAILY Qty: 0 RF: 0 multivitamin [Multiple Vitamins] 1 EACH tablet 1 tab PO QDAY Qty: 0 RF: 0 amlodipine 10 mg tablet 10 mg PO DAILY Qty: 90 RF: 3 metoprolol succinate [Toprol XL] 50 mg tablet extended release 24 hr 50 mg PO BID Qty: 180 RF: 3 simvastatin [Zocor] 40 mg tablet 40 mg PO BEDTIME Qty: 90 RF: 3 baclofen 10 mg tablet 10 mg PO TID PRN (Reason: spasms) Qty: 90 RF: 3 mupirocin 2 % ointment 2 % Topical BID Qty: 30 RF: 1 telmisartan-hydrochlorothiazid [Micardis HCT] 80-25 mg tablet 1 tab PO QDAY Qty: 90 RF: 3 Disabled Parking Permit 1 ea miscellaneous SEE INSTRUCTIONS RF: 0 Referrals: James Perez MD [Primary Care Provider] -
[2019-10-19 13:40] VITALS: BP 147/65; PULSE 69; O2SAT 99
== END 2019-10-19 13:41 | disposition home or self-care (01) ==
PROVIDERS: Emergency Provider Nurse Practitioner; PCP Family Medicine
DX: R51 Headache (principal); S09.90XA Unspecified injury of head, initial encounter; W07.XXXA Fall from chair, initial encounter; I11.0 Hypertensive heart disease with heart failure; I50.9 Heart failure, unspecified
CPT/HCPCS: 70450; 99283; 99284

== ENCOUNTER → 2019-12-29 15:20 | Outpatient (CLI) | payer MEDICARE, OTHER, SELFPAY ==
[2019-01-10 13:18] VITALS: BMI 36.7
--- NOTE | 2019-12-29 15:34 | DI.MG.S_ITS ---
Patient Name: DEANDRA MOREIRA date: 1940 Sex: F Attending Physician: Chris Indications: Date: 12/29/2019 15:26 At the request of: DARRYL JOSUE Procedure: MM screening mammo BI BILATERAL DIGITAL SCREENING MAMMOGRAM 3D/2D WITH CAD: 12/29/2019 CLINICAL: Routine screening. Comparison is made to exams dated: 11/12/2017 mammogram, 11/06/2016 mammogram, and 09/27/2015 mammogram - [facility]. There are scattered fibroglandular elements in both breasts. Current study was also evaluated with a Computer Aided Detection (CAD) system. No significant masses, calcifications, or other findings are seen in either breast. There has been no significant interval change. IMPRESSION: NEGATIVE There is no mammographic evidence of malignancy. A 1 year screening mammogram is recommended. This exam was interpreted at Station ID: [id number]. NOTE: For mammograms, a report in lay terms will be sent to the patient. Approximately 15% of breast malignancies will not be visualized mammographically. In the management of a palpable breast mass, a negative mammogram must not discourage biopsy of a clinically suspicious lesion. Electronically Signed By: Marcelino [email or web address]:12/29/2019 16:49:27 letter sent: Normal Exam ACR BI-RADS Category 1: Negative [id number]
== END ==
PROVIDERS: PCP Family Medicine; Referring Provider Family Medicine; Visit Provider Family Medicine
DX: Z12.31 Encounter for screening mammogram for malignant neoplasm of breast (principal)
CPT/HCPCS: 77063; 77067

== ENCOUNTER → 2020-02-06 12:28 | Outpatient (CLI) | payer MEDICARE, OTHER, SELFPAY ==
[2019-01-10 13:18] VITALS: BMI 36.7
== END ==
PROVIDERS: PCP Family Medicine; Visit Provider Family Medicine
DX: R30.0 Dysuria (principal)
CPT/HCPCS: 87077; 87086; 87186

== ENCOUNTER 2020-04-11 09:00 | Outpatient (RCR) | payer MEDICARE, OTHER, SELFPAY ==
[2019-01-10 13:18] VITALS: BMI 36.7
--- NOTE | 2020-01-09 12:32 | PT.OIE ---
Current Diagnoses Multiple sclerosis (01/09/20) Past Medical History (Last Reviewed 10/19/19 @ 13:04 by CESILIA James) Anxiety (Acute) Arthritis (Acute) Asthma (Chronic) Blister (Acute) Diastolic heart failure (Chronic) Eczema of both hands (Acute) Edema (Acute) Frequent UTI (Acute) GERD (gastroesophageal reflux disease) (Acute) Hyperlipidemia (Chronic) Hypertension (Inactive) Hypertension (Chronic) Multiple sclerosis (Chronic) Preoperative clearance (Inactive) Retention of urine, unspecified (Chronic) RLS (restless legs syndrome) (Chronic) Urge and stress incontinence (Chronic) Past Surgical History (Last Reviewed 10/19/19 @ 13:04 by CESILIA James) H/O arthroscopic knee surgery (Resolved) Hx of foot surgery (Acute) Hx of tonsillectomy (Acute) S/P wrist surgery (Acute) Status post bilateral cataract extraction (Acute) Status post hysterectomy with oophorectomy (Resolved) Status post laparoscopic cholecystectomy (Resolved) Visit Care Team Role Provider Type James Perez MD Primary Care Provider Physician Specialty: [facility] Address: [address] [place] [address] Email: [email or web address] Gabrielle Marinelli MD Attending Provider Non-Staff Referring Provider Specialty: Neurology Address: [address] [place] [address], [facility] Email: Physical Therapy Initial Evaluation PT-OP-A Visit Information Start: 01/09/20 07:21 Freq: Status: Active Protocol: Document 01/09/20 08:17 MB (Rec: 01/09/20 08:25 MB [id number]) Out-Patient Physical Therapy Visit Information Visit Information Visit Type Initial Evaluation Visit Note Medicare, unlimited visits Visit Start Time 08:17 Visit Stop Time 08:48 Total Visit Minutes 31 Visit Number 1 Evaluation Information Evaluation Date 01/09/20 Precautions Precautions Fall risk PT-OP-B Current Condition Start: 01/09/20 07:21 Freq: Status: Active Protocol: Document 01/09/20 08:17 MB (Rec: 01/09/20 08:25 MB [id number]) Current Condition History of Current Condition Onset Date August September 2019 Current Complaints Inability to walk with cane History of Current Condition Pt has a long history of MS and progressive weakness. She made gains with PT last year. She progressed to pool therapy . When the pool closed, she got more deconditioned. Her balance isn't quite there. She feels like she can't trust her left leg. Pt had a fall on 10/19/2019 and hit her head. She went to ED and CT head/brain was negative for acute changes. She can now get herself up when she goes down. She has had 1 fall /month since July 2019. The falls have been in the yard when she is getting tired. She denies light-headedness and dizziness. She is drinking some water. She reports 3/10 pain in her back, neck and left wrist. Treatment Goals Patient/Caregiver Goals To walk with cane. PT-OP-C Subjective Start: 01/09/20 07:21 Freq: Status: Active Protocol: Document 01/09/20 08:17 MB (Rec: 01/09/20 08:25 MB [id number]) OP-PT Subjective Patient Comments Patient Comments See history of current condition. PT-OP-D Balance Start: 01/09/20 07:21 Freq: Status: Active Protocol: Document 01/09/20 08:17 MB (Rec: 01/09/20 12:31 MB [id number]) OP-PT Balance Assessment Sitting Balance Static Sitting Balance Ability Normal Dynamic Sitting Balance Ability Good Sitting Balance Comments UE support for all dynamic sitting Standing Balance Static Standing Balance Ability Fair Dynamic Standing Balance Ability Poor Device Used Rollator Standing Balance Comments Pt is very uncertain with static standing with rollator. She states that she either has to stand on her left toes with right leg locked in extension or stand on her right foot and lock her left leg in extension. She can statically 21 sec. She needs rollator support for all dynamic balance in standing. Balance Tests Other Other Balance Tests Performed TUG 30 sec Morgan Fall Scale Copyright Permission PT-OP-G Mobility & Gait Start: 01/09/20 07:21 Freq: Status: Active Protocol: Document 01/09/20 08:17 MB (Rec: 01/09/20 12:31 MB [id number]) OP Mobility Evaluation Transfers Sit to Stand Pt cannot perform a sit to stand without UE support. OP Gait Assessment Comments Gait Comments Pt presents with gait 75'x2 with rollator and right knee valgus. She tends to walk on her left toes d/t leg length difference. Her gait mildly improves when she takes custom orthotic out of right shoe while keeping left one in. Occ poor foot clearance B, poor step-through and even tiffany. PT-OP-M Strength Start: 01/09/20 07:21 Freq: Status: Active Protocol: Document 01/09/20 08:17 MB (Rec: 01/09/20 12:31 MB [id number]) Hip Strength Hip Manual Muscle Testing Left Flexion (L2) 2- Poor- Comments Sitting in chair Right Flexion (L2) 3- Fair- Comments Sitting in chair Knee Strength Knee Manual Muscle Testing Left Flexion (S2) 4 Good Extension (L3) 4 Good Right Flexion (S2) 4 Good Extension (L3) 5 Normal Ankle/Foot Strength Ankle and Foot Manual Muscle Testing Left Dorsiflexion (L4) 4 Good Inversion 4 Good Eversion (S1) 4 Good Comments Left toe extension 4/5 Right Comments Right ankle fusion and grossly 5 deg of DF with eversion component, MMT deferred in setting of fusion PT-OP-T Assessment and Plan Start: 01/09/20 07:21 Freq: Status: Active Protocol: Document 01/09/20 08:17 MB (Rec: 01/09/20 12:31 [id number]) Physical Therapy Assessment Rehab Potential Rehabilitation Potential Good Evaluation Complexity Number of Personal Factors/Comorbidities 1-2 Number of Body Systems Impaired 1-2 Clinical Presentation at Evaluation Evolving Impairments Impairments Activity Tolerance,Balance, Edema,Functional Activities, Functional Mobility,Gait, Integument,Pain,Posture,ROM, Soft Tissue Mobility,Strength, Transfers Other Impairments Progressive MS, right ankle fusion, B LE cellulitis that is chronic with edema, history of falls Goals 5 Engine Setter Goal (LTG) Pt will perform progressive HEP with I to improve LE strength, gait, balance and tranfers by 03/10/2020. LTG Duration 8 weeks Four Engine Setter Goal (LTG) Pt will gait train 25' with cane and superv to meet pt personal goal by 03/10/2020. LTG Duration 8 weeks 3 Engine Setter Goal (LTG) Pt will present with improved TUG score to 15 sec to improve gait speed by 03/10/2020. LTG Duration 8 weeks 2 Prison Goal (LTG) Pt will perform 5 reps sit to stand without UE support in 13 sec to improve functional strength with transfers by . LTG Duration 8 weeks 1 Engine Setter Goal (LTG) Pt will deny falls for 2 months by 03/10/2020. LTG Duration 8 weeks Assessment Summary Assessment Pt is a 79 y/o female presenting with progression of MS per her report from MRI in 09/2019. She states that it has progressed in her neck and other parts of her spine. She had a fall in 10/[address] in the ED was negative for acute changes. Pt reports no lingering symptoms from hitting her head. She is falling about 1x/month but states that she can now get herself up off the ground and could not do this previously. She mostly falls when overdoing it with gardening and reports she will start to stop earlier to decrease fall risk. Pt presents with B LE changes including B distal LE chronic cellulitis and edema and she wears knee high compression, right ankle fusion, and functional leg difference with right leg longer than the left and requiring pt to walk on her left toes. She has signficant valgus in her legs. Taking out orthotic in right shoe makes mild improvement in gait today . She presents with weakness in B LEs with MMT, inability to perform dynamic sitting or sit to stands without UE support and slow TUG. Static standing is also difficult today and she cannot perform dynamic standing without rollator. Pt would like to get back to walking with her cane and so PT set a goal for short distance with cane but unsure if pt will be able to progress to it d/t many issues . Pt will benefit from PT for strengthening, balance, gait, transfer training. She did well in the pool in previous PT courses and would like to return when appropriate. Physical Therapy Plan Frequency and Duration Frequency of Treatment 2x/Week Duration of Treatment 8 weeks Plan of Care Start Date 01/09/20 Plan of Care End Date 03/12/20 Therapeutic Interventions Therapeutic Interventions Aquatic Therapy,Balance Training,Canalithic Repositioning,Coordination Training,Gait Training,Home Exercise Program,Lymphedema Management,Neuromuscular Re- education,Orthotic/Prosthetic Management,Patient/Caregiver Education,Self-Care/Home Management,Therapeutic Activities,Therapeutic Exercises Modalities Cold Pack/Ice Massage,Electric Stimulation,Hot Packs, Ultrasound Next Visit Focus/Plan Next Note Type Treatment Note Next Visit Plan Review previous PT exercises
--- NOTE | 2020-01-11 08:49 | PT.OTN ---
Current Diagnoses Multiple sclerosis (01/11/20) Physical Therapy Treatment Note PT-OP-A Visit Information Start: 01/09/20 07:21 Freq: Status: Active Protocol: Document 01/11/20 08:10 MB (Rec: 01/11/20 08:49 MB [id number]) Out-Patient Physical Therapy Visit Information Visit Information Visit Type Treatment Note Visit Note Medicare, unlimited visits Visit Start Time 08:10 Visit Stop Time 08:48 Total Visit Minutes 38 Visit Number 2 Evaluation Information Evaluation Date 01/09/20 Precautions Precautions Fall risk PT-OP-B Current Condition Start: 01/09/20 07:21 Freq: Status: Active Protocol: Document 01/09/20 08:17 MB (Rec: 01/09/20 08:25 MB [id number]) Current Condition History of Current Condition Onset Date August or September 2019 Current Complaints Inability to walk with cane History of Current Condition Pt has a long history of MS and progressive weakness. She made gains with PT last year. She progressed to pool therapy . When the pool closed, she got more deconditioned. Her balance isn't quite there. She feels like she can't trust her left leg. Pt had a fall on 10/19/2019 and hit her head. She went to ED and CT head/brain was negative for acute changes. She can now get herself up when she goes down. She has had 1 fall /month since July 2019. The falls have been in the yard when she is getting tired. She denies light-headedness and dizziness. She is drinking some water. She reports 3/10 pain in her back, neck and left wrist. Treatment Goals Patient/Caregiver Goals To walk with cane. PT-OP-C Subjective Start: 01/09/20 07:21 Freq: Status: Active Protocol: Document 01/11/20 08:10 MB (Rec: 01/11/20 08:49 MB [id number]) OP-PT Subjective Patient Comments Patient Comments Pt states that today is a little bit off. She aches all over. She used cane a little bit yesterday. She feels weak and imbalanced. She can move a folding chair a little bit for gardening. PT-OP-D Balance Start: 01/09/20 07:21 Freq: Status: Active Protocol: Document 01/09/20 08:17 MB (Rec: 01/09/20 12:31 MB [id number]) OP-PT Balance Assessment Sitting Balance Static Sitting Balance Ability Normal Dynamic Sitting Balance Ability Good Sitting Balance Comments UE support for all dynamic sitting Standing Balance Static Standing Balance Ability Fair Dynamic Standing Balance Ability Poor Device Used Rollator Standing Balance Comments Pt is very uncertain with static standing with rollator. She states that she either has to stand on her left toes with right leg locked in extension or stand on her right foot and lock her left leg in extension. She can statically 21 sec. She needs rollator support for all dynamic balance in standing. Balance Tests Other Other Balance Tests Performed TUG 30 sec Morgan Fall Scale Copyright Permission PT-OP-G Mobility & Gait Start: 01/09/20 07:21 Freq: Status: Active Protocol: Document 01/09/20 08:17 MB (Rec: 01/09/20 12:31 MB [id number]) OP Mobility Evaluation Transfers Sit to Stand Pt cannot perform a sit to stand without UE support. OP Gait Assessment Comments Gait Comments Pt presents with gait 75'x2 with rollator and right knee valgus. She tends to walk on her left toes d/t leg length difference. Her gait mildly improves when she takes custom orthotic out of right shoe while keeping left one in. Occ poor foot clearance B, poor step-through and even tiffany. PT-OP-M Strength Start: 01/09/20 07:21 Freq: Status: Active Protocol: Document 01/09/20 08:17 MB (Rec: 01/09/20 12:31 MB [id number]) Hip Strength Hip Manual Muscle Testing Left Flexion (L2) 2- Poor- Comments Sitting in chair Right Flexion (L2) 3- Fair- Comments Sitting in chair Knee Strength Knee Manual Muscle Testing Left Flexion (S2) 4 Good Extension (L3) 4 Good Right Flexion (S2) 4 Good Extension (L3) 5 Normal Ankle/Foot Strength Ankle and Foot Manual Muscle Testing Left Dorsiflexion (L4) 4 Good Inversion 4 Good Eversion (S1) 4 Good Comments Left toe extension 4/5 Right Comments Right ankle fusion and grossly 5 deg of DF with eversion component, MMT deferred in setting of fusion PT-OP-Q Treatments Start: 01/09/20 07:21 Freq: Status: Active Protocol: Document 01/11/20 08:10 MB (Rec: 07/01/20 08:49 MB [id number]) Cardio Equipment Recumbent Stepper (Sci-Fit) Duration (Minutes) 10 Resistance 4 Therapeutic Exercises Sitting Exercises Hamstring stretch Reps/Minutes 1 rep B, 30 sec hold Comments Pt to use handout given previously, PT updated reps and hold Chair dips Reps/Minutes 10 reps Comments Pt to use handout given previously, PT updated reps and hold Toe and heel raises Reps/Minutes 10 reps Comments Pt to use handout given previously, PT updated reps and hold Seated marching Reps/Minutes 10 reps alternating legs, little left hip flexion Comments Pt to use handout given previously, PT updated reps and hold Ball squeeze Reps/Minutes 10 reps, 5 sec hold Comments Pt to use handout given previously, PT updated reps and hold LAQ Sitting Exercise Name Alternate legs, pump ankles for 5 sec hold Reps/Minutes 5 reps, 5 sec hold Comments Pt to use handout given previously, PT updated reps and hold time PT-OP-T Assessment and Plan Start: 01/09/20 07:21 Freq: Status: Active Protocol: Document 01/11/20 08:10 MB (Rec: 01/11/20 08:49 MB [id number]) Physical Therapy Assessment Rehab Potential Rehabilitation Potential Good Evaluation Complexity Number of Personal Factors/Comorbidities 1-2 Number of Body Systems Impaired 1-2 Clinical Presentation at Evaluation Evolving Impairments Impairments Activity Tolerance,Balance, Edema,Functional Activities, Functional Mobility,Gait, Integument,Pain,Posture,ROM, Soft Tissue Mobility,Strength, Transfers Other Impairments Progressive MS, right ankle fusion, B LE cellulitis that is chronic with edema, history of falls Goals 5 Half-Way Goal (LTG) Pt will perform progressive HEP with I to improve LE strength, gait, balance and tranfers by 03/10/2020. LTG Duration 8 weeks Four Virtual Office Assistant Goal (LTG) Pt will gait train 25' with cane and superv to meet pt personal goal by 03/10/2020. LTG Duration 8 weeks 3 Half-Way Goal (LTG) Pt will present with improved TUG score to 15 sec to improve gait speed by 03/10/2020. LTG Duration 8 weeks 2 Half-Way Goal (LTG) Pt will perform 5 reps sit to stand without UE support in 13 sec to improve functional strength with transfers by . LTG Duration 8 weeks 1 Half-Way Goal (LTG) Pt will deny falls for 2 months by 03/10/2020. LTG Duration 8 weeks Assessment Summary Assessment Pt brings in her exercises from HHPT in the past. Initiated NuStep today to help with strengthening of legs. Progressed HEP today. Physical Therapy Plan Frequency and Duration Frequency of Treatment 2x/Week Duration of Treatment 8 weeks Plan of Care Start Date 01/09/20 Plan of Care End Date 03/12/20 Therapeutic Interventions Therapeutic Interventions Aquatic Therapy,Balance Training,Canalithic Repositioning,Coordination Training,Gait Training,Home Exercise Program,Lymphedema Management,Neuromuscular Re- education,Orthotic/Prosthetic Management,Patient/Caregiver Education,Self-Care/Home Management,Therapeutic Activities,Therapeutic Exercises Modalities Cold Pack/Ice Massage,Electric Stimulation,Hot Packs, Ultrasound Next Visit Focus/Plan Next Note Type Treatment Note Next Visit Plan Con't to progress exercises
--- NOTE | 2020-01-16 09:45 | PT.OTN ---
Current Diagnoses Multiple sclerosis (01/16/20) Physical Therapy Treatment Note PT-OP-A Visit Information Start: 01/09/20 07:21 Freq: Status: Active Protocol: Document 01/16/20 09:04 SP (Rec: 01/16/20 09:47 SP [id number]) Out-Patient Physical Therapy Visit Information Visit Information Visit Type Treatment Note Visit Note Medicare, unlimited visits Visit Start Time 09:04 Visit Stop Time 09:45 Total Visit Minutes 41 Visit Number 3 Number of BUTTERMAKER Visits 1 PT-OP-B Current Condition Start: 01/09/20 07:21 Freq: Status: Active Protocol: Document 01/09/20 08:17 MB (Rec: 01/09/20 08:25 MB [id number]) Current Condition History of Current Condition Onset Date August or September 2019 Current Complaints Inability to walk with cane History of Current Condition Pt has a long history of MS and progressive weakness. She made gains with PT last year. She progressed to pool therapy . When the pool closed, she got more deconditioned. Her balance isn't quite there. She feels like she can't trust her left leg. Pt had a fall on 10/19/2019 and hit her head. She went to ED and CT head/brain was negative for acute changes. She can now get herself up when she goes down. She has had 1 fall /month since July 2019. The falls have been in the yard when she is getting tired. She denies light-headedness and dizziness. She is drinking some water. She reports 3/10 pain in her back, neck and left wrist. Treatment Goals Patient/Caregiver Goals To walk with cane. PT-OP-C Subjective Start: 01/09/20 07:21 Freq: Status: Active Protocol: Document 01/16/20 09:04 SP (Rec: 01/16/20 09:47 SP [id number]) OP-PT Subjective Patient Comments Patient Comments Pt stated no significant changes. Pt stated tired and felt had done something after last tx. Just can't get my energy level up again. PT-OP-D Balance Start: 01/09/20 07:21 Freq: Status: Active Protocol: Document 01/09/20 08:17 MB (Rec: 01/09/20 12:31 MB [id number]) OP-PT Balance Assessment Sitting Balance Static Sitting Balance Ability Normal Dynamic Sitting Balance Ability Good Sitting Balance Comments UE support for all dynamic sitting Standing Balance Static Standing Balance Ability Fair Dynamic Standing Balance Ability Poor Device Used Rollator Standing Balance Comments Pt is very uncertain with static standing with rollator. She states that she either has to stand on her left toes with right leg locked in extension or stand on her right foot and lock her left leg in extension. She can statically 21 sec. She needs rollator support for all dynamic balance in standing. Balance Tests Other Other Balance Tests Performed TUG 30 sec Morgan Fall Scale Copyright Permission PT-OP-G Mobility & Gait Start: 01/09/20 07:21 Freq: Status: Active Protocol: Document 01/09/20 08:17 MB (Rec: 01/09/20 12:31 MB [id number]) OP Mobility Evaluation Transfers Sit to Stand Pt cannot perform a sit to stand without UE support. OP Gait Assessment Comments Gait Comments Pt presents with gait 75'x2 with rollator and right knee valgus. She tends to walk on her left toes d/t leg length difference. Her gait mildly improves when she takes custom orthotic out of right shoe while keeping left one in. Occ poor foot clearance B, poor step-through and even tiffany. PT-OP-M Strength Start: 01/09/20 07:21 Freq: Status: Active Protocol: Document 01/09/20 08:17 MB (Rec: 01/09/20 12:31 MB [id number]) Hip Strength Hip Manual Muscle Testing Left Flexion (L2) 2- Poor- Comments Sitting in chair Right Flexion (L2) 3- Fair- Comments Sitting in chair Knee Strength Knee Manual Muscle Testing Left Flexion (S2) 4 Good Extension (L3) 4 Good Right Flexion (S2) 4 Good Extension (L3) 5 Normal Ankle/Foot Strength Ankle and Foot Manual Muscle Testing Left Dorsiflexion (L4) 4 Good Inversion 4 Good Eversion (S1) 4 Good Comments Left toe extension 4/5 Right Comments Right ankle fusion and grossly 5 deg of DF with eversion component, MMT deferred in setting of fusion PT-OP-Q Treatments Start: 01/09/20 07:21 Freq: Status: Active Protocol: Document 01/16/20 09:04 SP (Rec: 01/16/20 09:47 SP [id number]) Cardio Equipment Recumbent Elliptical (Biodex) Duration (Minutes) 15 Resistance 3 Seat Position 7 Therapeutic Exercises Supine Exercises SLR Supine Exercise Name opposite leg bent Side bilateral Reps/Minutes x5 Comments cued core activation, elevate to opposite knee height SAQ Side bilateral Reps/Minutes 5 sec hold x10 Comments cued slow controlled movement pelvic clock Supine Exercise Name ant, post, lateral Comments 10 reps each direction x2 sets bridge Reps/Minutes 10 Comments cued core activation, slow controlled movement heel slide Side bilateral Reps/Minutes 10 Comments core activation, slow controlled movement PT-OP-T Assessment and Plan Start: 01/09/20 07:21 Freq: Status: Active Protocol: Document 01/16/20 09:04 SP (Rec: 01/16/20 09:47 SP [id number]) Physical Therapy Assessment Goals 8 Silk Screen Printer Machine Goal (LTG) Pt will perform aquatic HEP with I by 07/11/19. 07/01/19: Pt is performing water walking by herself and will con't with acting instructor for exercise upon d /c. LTG Duration 6 weeks 7 Snf Goal (LTG) Pt will demonstrate safe pool entry and exit with asst from by 07/11/19. 07/01/19: Pt will have the asst of acting instructor to get in and out of the pool at d/c. LTG Duration 6 weeks 6 Snf Goal (LTG) Pt will deny falls for 6 weeks by 07/11/19. 07/01/19: Pt denies falls. LTG Duration 6 weeks 5 Silk Screen Printer Machine Goal (LTG) Pt will perform progressive HEP with I to improve LE strength, gait, balance and tranfers by 03/10/2020. LTG Duration 8 weeks Four Silk Screen Printer Machine Goal (LTG) Pt will gait train 25' with cane and superv to meet pt personal goal by 03/10/2020. LTG Duration 8 weeks 3 Silk Screen Printer Machine Goal (LTG) Pt will present with improved TUG score to 15 sec to improve gait speed by 03/10/2020. LTG Duration 8 weeks 2 Silk Screen Printer Machine Goal (LTG) Pt will perform 5 reps sit to stand without UE support in 13 sec to improve functional strength with transfers by . LTG Duration 8 weeks 1 Silk Screen Printer Machine Goal (LTG) Pt will deny falls for 2 months by 03/10/2020. LTG Duration 8 weeks Assessment Summary Assessment Pt assessed biodex vs SciFit last tx for ther ex warm up to assist ankle mobility for heel toe gait for gait with positive feedback, increase to 4 resistance next tx. Cued heel toe LLE during gait. Reviewed HHPT supine exericses (see copies in chart) today, cuing required for slow controlled movement with core facilitation. Physical Therapy Plan Frequency and Duration Frequency of Treatment 2x/Week Duration of Treatment 8 weeks Plan of Care Start Date 01/09/20 Plan of Care End Date 03/12/20 Therapeutic Interventions Therapeutic Interventions Aquatic Therapy,Balance Training,Canalithic Repositioning,Coordination Training,Gait Training,Home Exercise Program,Lymphedema Management,Neuromuscular Re- education,Orthotic/Prosthetic Management,Patient/Caregiver Education,Self-Care/Home Management,Therapeutic Activities,Therapeutic Exercises Modalities Cold Pack/Ice Massage,Electric Stimulation,Hot Packs, Ultrasound Next Visit Focus/Plan Next Note Type Treatment Note Next Visit Plan Assess response to last tx. Next visit increase biodex to resistance 4. [Con't to progress exercises
--- NOTE | 2020-01-18 09:42 | PT.OTN ---
Current Diagnoses Multiple sclerosis (01/18/20) Physical Therapy Treatment Note PT-OP-A Visit Information Start: 01/09/20 07:21 Freq: Status: Active Protocol: Document 01/18/20 09:00 MB (Rec: 01/18/20 09:42 MB [id number]) Out-Patient Physical Therapy Visit Information Visit Information Visit Type Treatment Note Visit Note Medicare, unlimited visits Visit Start Time 09:00 Visit Stop Time 09:42 Total Visit Minutes 42 Visit Number 4 Number of WEBSPHERE DEVELOPER Visits 0 PT-OP-B Current Condition Start: 01/09/20 07:21 Freq: Status: Active Protocol: Document 01/09/20 08:17 MB (Rec: 01/09/20 08:25 MB [id number]) Current Condition History of Current Condition Onset Date August or September 2019 Current Complaints Inability to walk with cane History of Current Condition Pt has a long history of MS and progressive weakness. She made gains with PT last year. She progressed to pool therapy . When the pool closed, she got more deconditioned. Her balance isn't quite there. She feels like she can't trust her left leg. Pt had a fall on 10/19/2019 and hit her head. She went to ED and CT head/brain was negative for acute changes. She can now get herself up when she goes down. She has had 1 fall /month since July 2019. The falls have been in the yard when she is getting tired. She denies light-headedness and dizziness. She is drinking some water. She reports 3/10 pain in her back, neck and left wrist. Treatment Goals Patient/Caregiver Goals To walk with cane. PT-OP-C Subjective Start: 01/09/20 07:21 Freq: Status: Active Protocol: Document 01/18/20 09:00 MB (Rec: 01/18/20 09:42 MB [id number]) OP-PT Subjective Patient Comments Patient Comments Pt states that she is doing good. PT-OP-D Balance Start: 01/09/20 07:21 Freq: Status: Active Protocol: Document 01/09/20 08:17 MB (Rec: 01/09/20 12:31 MB [id number]) OP-PT Balance Assessment Sitting Balance Static Sitting Balance Ability Normal Dynamic Sitting Balance Ability Good Sitting Balance Comments UE support for all dynamic sitting Standing Balance Static Standing Balance Ability Fair Dynamic Standing Balance Ability Poor Device Used Rollator Standing Balance Comments Pt is very uncertain with static standing with rollator. She states that she either has to stand on her left toes with right leg locked in extension or stand on her right foot and lock her left leg in extension. She can statically 21 sec. She needs rollator support for all dynamic balance in standing. Balance Tests Other Other Balance Tests Performed TUG 30 sec Morgan Fall Scale Copyright Permission PT-OP-G Mobility & Gait Start: 01/09/20 07:21 Freq: Status: Active Protocol: Document 01/09/20 08:17 MB (Rec: 01/09/20 12:31 MB [id number]) OP Mobility Evaluation Transfers Sit to Stand Pt cannot perform a sit to stand without UE support. OP Gait Assessment Comments Gait Comments Pt presents with gait 75'x2 with rollator and right knee valgus. She tends to walk on her left toes d/t leg length difference. Her gait mildly improves when she takes custom orthotic out of right shoe while keeping left one in. Occ poor foot clearance B, poor step-through and even tiffany. PT-OP-M Strength Start: 01/09/20 07:21 Freq: Status: Active Protocol: Document 01/09/20 08:17 MB (Rec: 01/09/20 12:31 MB [id number]) Hip Strength Hip Manual Muscle Testing Left Flexion (L2) 2- Poor- Comments Sitting in chair Right Flexion (L2) 3- Fair- Comments Sitting in chair Knee Strength Knee Manual Muscle Testing Left Flexion (S2) 4 Good Extension (L3) 4 Good Right Flexion (S2) 4 Good Extension (L3) 5 Normal Ankle/Foot Strength Ankle and Foot Manual Muscle Testing Left Dorsiflexion (L4) 4 Good Inversion 4 Good Eversion (S1) 4 Good Comments Left toe extension 4/5 Right Comments Right ankle fusion and grossly 5 deg of DF with eversion component, MMT deferred in setting of fusion PT-OP-Q Treatments Start: 01/09/20 07:21 Freq: Status: Active Protocol: Document 01/18/20 09:00 MB (Rec: 01/18/20 09:42 MB [id number]) Cardio Equipment Recumbent Stepper (Sci-Fit) Duration (Minutes) 15 Resistance 4 Therapeutic Exercises Sitting Exercises Weight shift forward, lifting hips Reps/Minutes 10 reps Comments Min A from PT for unweighting hips, cues to reach forward Reach forward, down, up and arms back for posture, prepare for sit to stand without hands Comments 7 reps Chair dips Comments 5 reps PT-OP-T Assessment and Plan Start: 01/09/20 07:21 Freq: Status: Active Protocol: Document 01/18/20 09:00 MB (Rec: 01/18/20 09:42 MB [id number]) Physical Therapy Assessment Evaluation Complexity Number of Personal Factors/Comorbidities 1-2 Number of Body Systems Impaired 1-2 Clinical Presentation at Evaluation Evolving Impairments Impairments Activity Tolerance,Balance, Edema,Functional Activities, Functional Mobility,Gait, Integument,Pain,Posture,ROM, Soft Tissue Mobility,Strength, Transfers Other Impairments Progressive MS, right ankle fusion, B LE cellulitis that is chronic with edema, history of falls Goals 8 Correction Goal (LTG) Pt will perform aquatic HEP with I by 07/11/19. 07/01/19: Pt is performing water walking by herself and will con't with aquatic scientist for exercise upon d /c. LTG Duration 6 weeks 7 Correction Goal (LTG) Pt will demonstrate safe pool entry and exit with asst from by 07/11/19. 07/01/19: Pt will have the asst of aquatic scientist to get in and out of the pool at d/c. LTG Duration 6 weeks 6 Box Sealing Machine Feeder Goal (LTG) Pt will deny falls for 6 weeks by 07/11/19. 07/01/19: Pt denies falls. LTG Duration 6 weeks 5 Correction Goal (LTG) Pt will perform progressive HEP with I to improve LE strength, gait, balance and tranfers by 03/10/2020. LTG Duration 8 weeks Four Correction Goal (LTG) Pt will gait train 25' with cane and superv to meet pt personal goal by 03/10/2020. LTG Duration 8 weeks 3 Correction Goal (LTG) Pt will present with improved TUG score to 15 sec to improve gait speed by 03/10/2020. LTG Duration 8 weeks 2 Box Sealing Machine Feeder Goal (LTG) Pt will perform 5 reps sit to stand without UE support in 13 sec to improve functional strength with transfers by . LTG Duration 8 weeks 1 Box Sealing Machine Feeder Goal (LTG) Pt will deny falls for 2 months by 03/10/2020. LTG Duration 8 weeks Assessment Summary Assessment Progressed sit to stands today . Spoke with pt about thinking about a NuStep/recumbent stepper for home. She will talk with . Physical Therapy Plan Frequency and Duration Frequency of Treatment 2x/Week Duration of Treatment 8 weeks Plan of Care Start Date 01/09/20 Plan of Care End Date 03/12/20 Therapeutic Interventions Therapeutic Interventions Aquatic Therapy,Balance Training,Canalithic Repositioning,Coordination Training,Gait Training,Home Exercise Program,Lymphedema Management,Neuromuscular Re- education,Orthotic/Prosthetic Management,Patient/Caregiver Education,Self-Care/Home Management,Therapeutic Activities,Therapeutic Exercises Modalities Cold Pack/Ice Massage,Electric Stimulation,Hot Packs, Ultrasound Next Visit Focus/Plan Next Note Type Treatment Note Next Visit Plan Ongoing work with large reach and hands to help with weight shift, posture and no hands for sit to stand
--- NOTE | 2020-01-25 08:58 | PT.OTN ---
Current Diagnoses Multiple sclerosis (01/25/20) Physical Therapy Treatment Note PT-OP-A Visit Information Start: 01/09/20 07:21 Freq: Status: Active Protocol: Document 01/25/20 08:13 MB (Rec: 01/25/20 08:58 MB [id number]) Out-Patient Physical Therapy Visit Information Visit Information Visit Type Treatment Note Visit Note Medicare, unlimited visits Visit Start Time 08:13 Visit Stop Time 08:58 Total Visit Minutes 45 Visit Number 5 PT-OP-B Current Condition Start: 01/09/20 07:21 Freq: Status: Active Protocol: Document 01/09/20 08:17 MB (Rec: 01/09/20 08:25 MB [id number]) Current Condition History of Current Condition Onset Date August or September 2019 Current Complaints Inability to walk with cane History of Current Condition Pt has a long history of MS and progressive weakness. She made gains with PT last year. She progressed to pool therapy . When the pool closed, she got more deconditioned. Her balance isn't quite there. She feels like she can't trust her left leg. Pt had a fall on 10/19/2019 and hit her head. She went to ED and CT head/brain was negative for acute changes. She can now get herself up when she goes down. She has had 1 fall /month since July 2019. The falls have been in the yard when she is getting tired. She denies light-headedness and dizziness. She is drinking some water. She reports 3/10 pain in her back, neck and left wrist. Treatment Goals Patient/Caregiver Goals To walk with cane. PT-OP-C Subjective Start: 01/09/20 07:21 Freq: Status: Active Protocol: Document 01/25/20 08:13 MB (Rec: 01/25/20 08:58 MB [id number]) OP-PT Subjective Patient Comments Patient Comments Pt states that she is tired after working outside for many hours yesterday. She worked 3 hours in a row yesterday and then 6 the days before. She wore herself out. PT-OP-D Balance Start: 01/09/20 07:21 Freq: Status: Active Protocol: Document 01/09/20 08:17 MB (Rec: 01/09/20 12:31 MB [id number]) OP-PT Balance Assessment Sitting Balance Static Sitting Balance Ability Normal Dynamic Sitting Balance Ability Good Sitting Balance Comments UE support for all dynamic sitting Standing Balance Static Standing Balance Ability Fair Dynamic Standing Balance Ability Poor Device Used Rollator Standing Balance Comments Pt is very uncertain with static standing with rollator. She states that she either has to stand on her left toes with right leg locked in extension or stand on her right foot and lock her left leg in extension. She can statically 21 sec. She needs rollator support for all dynamic balance in standing. Balance Tests Other Other Balance Tests Performed TUG 30 sec Morgan Fall Scale Copyright Permission PT-OP-G Mobility & Gait Start: 01/09/20 07:21 Freq: Status: Active Protocol: Document 01/09/20 08:17 MB (Rec: 01/09/20 12:31 MB [id number]) OP Mobility Evaluation Transfers Sit to Stand Pt cannot perform a sit to stand without UE support. OP Gait Assessment Comments Gait Comments Pt presents with gait 75'x2 with rollator and right knee valgus. She tends to walk on her left toes d/t leg length difference. Her gait mildly improves when she takes custom orthotic out of right shoe while keeping left one in. Occ poor foot clearance B, poor step-through and even tiffany. PT-OP-M Strength Start: 01/09/20 07:21 Freq: Status: Active Protocol: Document 01/09/20 08:17 MB (Rec: 01/09/20 12:31 MB [id number]) Hip Strength Hip Manual Muscle Testing Left Flexion (L2) 2- Poor- Comments Sitting in chair Right Flexion (L2) 3- Fair- Comments Sitting in chair Knee Strength Knee Manual Muscle Testing Left Flexion (S2) 4 Good Extension (L3) 4 Good Right Flexion (S2) 4 Good Extension (L3) 5 Normal Ankle/Foot Strength Ankle and Foot Manual Muscle Testing Left Dorsiflexion (L4) 4 Good Inversion 4 Good Eversion (S1) 4 Good Comments Left toe extension 4/5 Right Comments Right ankle fusion and grossly 5 deg of DF with eversion component, MMT deferred in setting of fusion PT-OP-Q Treatments Start: 01/09/20 07:21 Freq: Status: Active Protocol: Document 01/25/20 08:13 MB (Rec: 01/25/20 08:58 MB [id number]) Cardio Equipment Recumbent Stepper (Sci-Fit) Duration (Minutes) 17 Resistance 5 Therapeutic Exercises Sitting Exercises Weight shift forward, lifting hips Reps/Minutes 10 reps Comments Cues to reach forward, occ pushes up from thighs, min A with gait belt Reach forward, down, up and arms back for posture, prepare for sit to stand without hands Reps/Minutes 5 reps forward, up and back Comments Reaching down caused sciatic symptoms in left leg Hamstring stretch Comments B 30 sec Ball squeeze Comments 5 reps, 3 sec squeeze Gait Training Gait Activity // bar gait Comments Gait with B UE support in // bars and pt is able to stand better upright. Leg length difference with left leg shorter is a barrier; 8 reps and then 4 reps Self-Care/Home Management Treatment Education Other Education Benefits of possible built up shoe on the left and pt to call orthotic office Benefits of possible recumbent stepper and PT provides handout PT-OP-T Assessment and Plan Start: 01/09/20 07:21 Freq: Status: Active Protocol: Document 01/25/20 08:13 MB (Rec: 01/25/20 08:58 MB [id number]) Physical Therapy Assessment Evaluation Complexity Number of Personal Factors/Comorbidities 1-2 Number of Body Systems Impaired 1-2 Clinical Presentation at Evaluation Evolving Impairments Impairments Activity Tolerance,Balance, Edema,Functional Activities, Functional Mobility,Gait, Integument,Pain,Posture,ROM, Soft Tissue Mobility,Strength, Transfers Other Impairments Progressive MS, right ankle fusion, B LE cellulitis that is chronic with edema, history of falls Goals 8 Singing Telegram Performer Goal (LTG) Pt will perform aquatic HEP with I by 07/11/19. 07/01/19: Pt is performing water walking by herself and will con't with orientation and mobility instructor for exercise upon d /c. LTG Duration 6 weeks 7 Singing Telegram Performer Goal (LTG) Pt will demonstrate safe pool entry and exit with asst from by 07/11/19. 07/01/19: Pt will have the asst of orientation and mobility instructor to get in and out of the pool at d/c. LTG Duration 6 weeks 6 Singing Telegram Performer Goal (LTG) Pt will deny falls for 6 weeks by 07/11/19. 07/01/19: Pt denies falls. LTG Duration 6 weeks 5 Long-Term Goal (LTG) Pt will perform progressive HEP with I to improve LE strength, gait, balance and tranfers by 03/10/2020. LTG Duration 8 weeks Four Long-Term Goal (LTG) Pt will gait train 25' with cane and superv to meet pt personal goal by 03/10/2020. LTG Duration 8 weeks 3 Long-Term Goal (LTG) Pt will present with improved TUG score to 15 sec to improve gait speed by 03/10/2020. LTG Duration 8 weeks 2 Singing Telegram Performer Goal (LTG) Pt will perform 5 reps sit to stand without UE support in 13 sec to improve functional strength with transfers by . LTG Duration 8 weeks 1 Long-Term Goal (LTG) Pt will deny falls for 2 months by 03/10/2020. LTG Duration 8 weeks Assessment Summary Assessment Pt performs sit to stands better and progressed // bar gait today. Leg length difference is a barrier to gait pattern. She is able to get better upright with // bar support Physical Therapy Plan Frequency and Duration Frequency of Treatment 2x/Week Duration of Treatment 8 weeks Plan of Care Start Date 01/09/20 Plan of Care End Date 03/12/20 Therapeutic Interventions Therapeutic Interventions Aquatic Therapy,Balance Training,Canalithic Repositioning,Coordination Training,Gait Training,Home Exercise Program,Lymphedema Management,Neuromuscular Re- education,Orthotic/Prosthetic Management,Patient/Caregiver Education,Self-Care/Home Management,Therapeutic Activities,Therapeutic Exercises Modalities Cold Pack/Ice Massage,Electric Stimulation,Hot Packs, Ultrasound Next Visit Focus/Plan Next Note Type Treatment Note Next Visit Plan Ongoing work with large reach and hands to help with weight shift, posture and no hands for sit to stand
--- NOTE | 2020-01-31 08:13 | PT.OTN ---
Current Diagnoses Multiple sclerosis (01/31/20) Physical Therapy Treatment Note PT-OP-A Visit Information Start: 01/09/20 07:21 Freq: Status: Active Protocol: Document 01/25/20 08:13 MB (Rec: 01/25/20 08:58 MB [id number]) Out-Patient Physical Therapy Visit Information Visit Information Visit Type Treatment Note Visit Note Medicare, unlimited visits Visit Start Time 08:13 Visit Stop Time 08:58 Total Visit Minutes 45 Visit Number 5 PT-OP-B Current Condition Start: 01/09/20 07:21 Freq: Status: Active Protocol: Document 01/09/20 08:17 MB (Rec: 01/09/20 08:25 MB [id number]) Current Condition History of Current Condition Onset Date August or September 2019 Current Complaints Inability to walk with cane History of Current Condition Pt has a long history of MS and progressive weakness. She made gains with PT last year. She progressed to pool therapy . When the pool closed, she got more deconditioned. Her balance isn't quite there. She feels like she can't trust her left leg. Pt had a fall on 10/19/2019 and hit her head. She went to ED and CT head/brain was negative for acute changes. She can now get herself up when she goes down. She has had 1 fall /month since July 2019. The falls have been in the yard when she is getting tired. She denies light-headedness and dizziness. She is drinking some water. She reports 3/10 pain in her back, neck and left wrist. Treatment Goals Patient/Caregiver Goals To walk with cane. PT-OP-C Subjective Start: 01/09/20 07:21 Freq: Status: Active Protocol: Document 01/25/20 08:13 MB (Rec: 01/25/20 08:58 MB [id number]) OP-PT Subjective Patient Comments Patient Comments Pt states that she is tired after working outside for many hours yesterday. She worked 3 hours in a row yesterday and then 6 the days before. She wore herself out. PT-OP-D Balance Start: 01/09/20 07:21 Freq: Status: Active Protocol: Document 01/09/20 08:17 MB (Rec: 01/09/20 12:31 MB [id number]) OP-PT Balance Assessment Sitting Balance Static Sitting Balance Ability Normal Dynamic Sitting Balance Ability Good Sitting Balance Comments UE support for all dynamic sitting Standing Balance Static Standing Balance Ability Fair Dynamic Standing Balance Ability Poor Device Used Rollator Standing Balance Comments Pt is very uncertain with static standing with rollator. She states that she either has to stand on her left toes with right leg locked in extension or stand on her right foot and lock her left leg in extension. She can statically 21 sec. She needs rollator support for all dynamic balance in standing. Balance Tests Other Other Balance Tests Performed TUG 30 sec Morgan Fall Scale Copyright Permission PT-OP-G Mobility & Gait Start: 01/09/20 07:21 Freq: Status: Active Protocol: Document 01/09/20 08:17 MB (Rec: 01/09/20 12:31 MB [id number]) OP Mobility Evaluation Transfers Sit to Stand Pt cannot perform a sit to stand without UE support. OP Gait Assessment Comments Gait Comments Pt presents with gait 75'x2 with rollator and right knee valgus. She tends to walk on her left toes d/t leg length difference. Her gait mildly improves when she takes custom orthotic out of right shoe while keeping left one in. Occ poor foot clearance B, poor step-through and even tiffany. PT-OP-M Strength Start: 01/09/20 07:21 Freq: Status: Active Protocol: Document 01/09/20 08:17 MB (Rec: 01/09/20 12:31 MB [id number]) Hip Strength Hip Manual Muscle Testing Left Flexion (L2) 2- Poor- Comments Sitting in chair Right Flexion (L2) 3- Fair- Comments Sitting in chair Knee Strength Knee Manual Muscle Testing Left Flexion (S2) 4 Good Extension (L3) 4 Good Right Flexion (S2) 4 Good Extension (L3) 5 Normal Ankle/Foot Strength Ankle and Foot Manual Muscle Testing Left Dorsiflexion (L4) 4 Good Inversion 4 Good Eversion (S1) 4 Good Comments Left toe extension 4/5 Right Comments Right ankle fusion and grossly 5 deg of DF with eversion component, MMT deferred in setting of fusion PT-OP-Q Treatments Start: 01/09/20 07:21 Freq: Status: Active Protocol: Document 01/25/20 08:13 MB (Rec: 01/25/20 08:58 MB [id number]) Cardio Equipment Recumbent Stepper (Sci-Fit) Duration (Minutes) 17 Resistance 5 Therapeutic Exercises Sitting Exercises Weight shift forward, lifting hips Reps/Minutes 10 reps Comments Cues to reach forward, occ pushes up from thighs, min A with gait belt Reach forward, down, up and arms back for posture, prepare for sit to stand without hands Reps/Minutes 5 reps forward, up and back Comments Reaching down caused sciatic symptoms in left leg Hamstring stretch Comments B 30 sec Ball squeeze Comments 5 reps, 3 sec squeeze Gait Training Gait Activity // bar gait Comments Gait with B UE support in // bars and pt is able to stand better upright. Leg length difference with left leg shorter is a barrier; 8 reps and then 4 reps Self-Care/Home Management Treatment Education Other Education Benefits of possible built up shoe on the left and pt to call orthotic office Benefits of possible recumbent stepper and PT provides handout PT-OP-T Assessment and Plan Start: 01/09/20 07:21 Freq: Status: Active Protocol: Document 01/25/20 08:13 MB (Rec: 01/25/20 08:58 MB [id number]) Physical Therapy Assessment Evaluation Complexity Number of Personal Factors/Comorbidities 1-2 Number of Body Systems Impaired 1-2 Clinical Presentation at Evaluation Evolving Impairments Impairments Activity Tolerance,Balance, Edema,Functional Activities, Functional Mobility,Gait, Integument,Pain,Posture,ROM, Soft Tissue Mobility,Strength, Transfers Other Impairments Progressive MS, right ankle fusion, B LE cellulitis that is chronic with edema, history of falls Goals 8 Extractor Operator Goal (LTG) Pt will perform aquatic HEP with I by 07/11/19. 07/01/19: Pt is performing water walking by herself and will con't with anthropology and archeology instructor for exercise upon d /c. LTG Duration 6 weeks 7 Extractor Operator Goal (LTG) Pt will demonstrate safe pool entry and exit with asst from by 07/11/19. 07/01/19: Pt will have the asst of anthropology and archeology instructor to get in and out of the pool at d/c. LTG Duration 6 weeks 6 Extractor Operator Goal (LTG) Pt will deny falls for 6 weeks by 07/11/19. 07/01/19: Pt denies falls. LTG Duration 6 weeks 5 Nursing Home Goal (LTG) Pt will perform progressive HEP with I to improve LE strength, gait, balance and tranfers by 03/10/2020. LTG Duration 8 weeks Four Nursing Home Goal (LTG) Pt will gait train 25' with cane and superv to meet pt personal goal by 03/10/2020. LTG Duration 8 weeks 3 Nursing Home Goal (LTG) Pt will present with improved TUG score to 15 sec to improve gait speed by 03/10/2020. LTG Duration 8 weeks 2 Extractor Operator Goal (LTG) Pt will perform 5 reps sit to stand without UE support in 13 sec to improve functional strength with transfers by . LTG Duration 8 weeks 1 Nursing Home Goal (LTG) Pt will deny falls for 2 months by 03/10/2020. LTG Duration 8 weeks Assessment Summary Assessment Pt performs sit to stands better and progressed // bar gait today. Leg length difference is a barrier to gait pattern. She is able to get better upright with // bar support Physical Therapy Plan Frequency and Duration Frequency of Treatment 2x/Week Duration of Treatment 8 weeks Plan of Care Start Date 01/09/20 Plan of Care End Date 03/12/20 Therapeutic Interventions Therapeutic Interventions Aquatic Therapy,Balance Training,Canalithic Repositioning,Coordination Training,Gait Training,Home Exercise Program,Lymphedema Management,Neuromuscular Re- education,Orthotic/Prosthetic Management,Patient/Caregiver Education,Self-Care/Home Management,Therapeutic Activities,Therapeutic Exercises Modalities Cold Pack/Ice Massage,Electric Stimulation,Hot Packs, Ultrasound Next Visit Focus/Plan Next Note Type Treatment Note Next Visit Plan Ongoing work with large reach and hands to help with weight shift, posture and no hands for sit to stand
--- NOTE | 2020-01-31 09:00 | PT.OTN ---
Current Diagnoses Multiple sclerosis (01/31/20) Physical Therapy Treatment Note PT-OP-A Visit Information Start: 01/09/20 07:21 Freq: Status: Active Protocol: Document 01/31/20 08:17 MB (Rec: 01/31/20 08:59 MB [id number]) Out-Patient Physical Therapy Visit Information Visit Information Visit Type Treatment Note Visit Note Medicare, unlimited visits Visit Start Time 08:17 Visit Stop Time 09:00 Total Visit Minutes 43 Visit Number 6 PT-OP-B Current Condition Start: 01/09/20 07:21 Freq: Status: Active Protocol: Document 01/09/20 08:17 MB (Rec: 01/09/20 08:25 MB [id number]) Current Condition History of Current Condition Onset Date August or September 2019 Current Complaints Inability to walk with cane History of Current Condition Pt has a long history of MS and progressive weakness. She made gains with PT last year. She progressed to pool therapy . When the pool closed, she got more deconditioned. Her balance isn't quite there. She feels like she can't trust her left leg. Pt had a fall on 10/19/2019 and hit her head. She went to ED and CT head/brain was negative for acute changes. She can now get herself up when she goes down. She has had 1 fall /month since July 2019. The falls have been in the yard when she is getting tired. She denies light-headedness and dizziness. She is drinking some water. She reports 3/10 pain in her back, neck and left wrist. Treatment Goals Patient/Caregiver Goals To walk with cane. PT-OP-C Subjective Start: 01/09/20 07:21 Freq: Status: Active Protocol: Document 01/31/20 08:17 MB (Rec: 01/31/20 08:59 MB [id number]) OP-PT Subjective Patient Comments Patient Comments Pt states that the heat is getting to her. She rested yesterday and did not go out to garden. PT-OP-D Balance Start: 01/09/20 07:21 Freq: Status: Active Protocol: Document 01/09/20 08:17 MB (Rec: 01/09/20 12:31 MB [id number]) OP-PT Balance Assessment Sitting Balance Static Sitting Balance Ability Normal Dynamic Sitting Balance Ability Good Sitting Balance Comments UE support for all dynamic sitting Standing Balance Static Standing Balance Ability Fair Dynamic Standing Balance Ability Poor Device Used Rollator Standing Balance Comments Pt is very uncertain with static standing with rollator. She states that she either has to stand on her left toes with right leg locked in extension or stand on her right foot and lock her left leg in extension. She can statically 21 sec. She needs rollator support for all dynamic balance in standing. Balance Tests Other Other Balance Tests Performed TUG 30 sec Morgan Fall Scale Copyright Permission PT-OP-G Mobility & Gait Start: 01/09/20 07:21 Freq: Status: Active Protocol: Document 01/09/20 08:17 MB (Rec: 01/09/20 12:31 MB [id number]) OP Mobility Evaluation Transfers Sit to Stand Pt cannot perform a sit to stand without UE support. OP Gait Assessment Comments Gait Comments Pt presents with gait 75'x2 with rollator and right knee valgus. She tends to walk on her left toes d/t leg length difference. Her gait mildly improves when she takes custom orthotic out of right shoe while keeping left one in. Occ poor foot clearance B, poor step-through and even tiffany. PT-OP-M Strength Start: 01/09/20 07:21 Freq: Status: Active Protocol: Document 01/09/20 08:17 MB (Rec: 01/09/20 12:31 MB [id number]) Hip Strength Hip Manual Muscle Testing Left Flexion (L2) 2- Poor- Comments Sitting in chair Right Flexion (L2) 3- Fair- Comments Sitting in chair Knee Strength Knee Manual Muscle Testing Left Flexion (S2) 4 Good Extension (L3) 4 Good Right Flexion (S2) 4 Good Extension (L3) 5 Normal Ankle/Foot Strength Ankle and Foot Manual Muscle Testing Left Dorsiflexion (L4) 4 Good Inversion 4 Good Eversion (S1) 4 Good Comments Left toe extension 4/5 Right Comments Right ankle fusion and grossly 5 deg of DF with eversion component, MMT deferred in setting of fusion PT-OP-Q Treatments Start: 01/09/20 07:21 Freq: Status: Active Protocol: Document 01/31/20 08:17 MB (Rec: 01/31/20 08:59 MB [id number]) Cardio Equipment Recumbent Stepper (Sci-Fit) Duration (Minutes) 15 Resistance 5 Therapeutic Exercises Sitting Exercises Reach forward, down, up and arms back for posture, prepare for sit to stand without hands Sitting Exercise Name Standing, holds // bars, 20 sec stand Reps/Minutes 5 reps x3 today with transitions to gait Comments Ongoing challenge not using hands, min A, block L leg Gait Training Gait Activity // bar gait Comments Gait with B UE support in // bars and pt is able to stand better upright. Leg length difference with left leg shorter is a barrier; 6 reps x3, CGA Manual Therapy Treatment Other Other Manual Treatments Black KT tape to support left knee: c strip under patella, B I strips. Ed pt to take off later today or tomorrow and if any skin sxs PT-OP-T Assessment and Plan Start: 01/09/20 07:21 Freq: Status: Active Protocol: Document 01/31/20 08:17 MB (Rec: 01/31/20 08:59 MB [id number]) Physical Therapy Assessment Evaluation Complexity Number of Personal Factors/Comorbidities 1-2 Number of Body Systems Impaired 1-2 Clinical Presentation at Evaluation Evolving Impairments Impairments Activity Tolerance,Balance, Edema,Functional Activities, Functional Mobility,Gait, Integument,Pain,Posture,ROM, Soft Tissue Mobility,Strength, Transfers Other Impairments Progressive MS, right ankle fusion, B LE cellulitis that is chronic with edema, history of falls Goals 8 Fdc Goal (LTG) Pt will perform aquatic HEP with I by 07/11/19. 07/01/19: Pt is performing water walking by herself and will con't with instructor of nursing for exercise upon d /c. LTG Duration 6 weeks 7 Fdc Goal (LTG) Pt will demonstrate safe pool entry and exit with asst from by 07/11/19. 07/01/19: Pt will have the asst of instructor of nursing to get in and out of the pool at d/c. LTG Duration 6 weeks 6 Customer Associate Goal (LTG) Pt will deny falls for 6 weeks by 07/11/19. 07/01/19: Pt denies falls. LTG Duration 6 weeks 5 Customer Associate Goal (LTG) Pt will perform progressive HEP with I to improve LE strength, gait, balance and tranfers by 03/10/2020. LTG Duration 8 weeks Four Fdc Goal (LTG) Pt will gait train 25' with cane and superv to meet pt personal goal by 03/10/2020. LTG Duration 8 weeks 3 Customer Associate Goal (LTG) Pt will present with improved TUG score to 15 sec to improve gait speed by 03/10/2020. LTG Duration 8 weeks 2 Fdc Goal (LTG) Pt will perform 5 reps sit to stand without UE support in 13 sec to improve functional strength with transfers by . LTG Duration 8 weeks 1 Fdc Goal (LTG) Pt will deny falls for 2 months by 03/10/2020. LTG Duration 8 weeks Assessment Summary Assessment Changes today: left knee taping and 1 1/2 inch wooden step under foot for leg length . Progressed sit to stands and transferring to gait in // bars today to improve functional mobility, strength and gait. These con't to be challenging. Physical Therapy Plan Frequency and Duration Frequency of Treatment 2x/Week Duration of Treatment 8 weeks Plan of Care Start Date 01/09/20 Plan of Care End Date 03/12/20 Therapeutic Interventions Therapeutic Interventions Aquatic Therapy,Balance Training,Canalithic Repositioning,Coordination Training,Gait Training,Home Exercise Program,Lymphedema Management,Neuromuscular Re- education,Orthotic/Prosthetic Management,Patient/Caregiver Education,Self-Care/Home Management,Therapeutic Activities,Therapeutic Exercises Modalities Cold Pack/Ice Massage,Electric Stimulation,Hot Packs, Ultrasound Next Visit Focus/Plan Next Note Type Treatment Note Next Visit Plan Ongoing work with large reach and hands to help with weight shift, posture and no hands for sit to stand, gait training
--- NOTE | 2020-02-02 12:58 | PT.OTN ---
Current Diagnoses Multiple sclerosis (02/02/20) Physical Therapy Treatment Note PT-OP-A Visit Information Start: 01/09/20 07:21 Freq: Status: Active Protocol: Document 02/02/20 12:15 MB (Rec: 02/02/20 12:52 MB [id number]) Out-Patient Physical Therapy Visit Information Visit Information Visit Type Treatment Note Visit Note Medicare, unlimited visits Visit Start Time 12:15 Visit Stop Time 12:55 Total Visit Minutes 40 Visit Number 7 PT-OP-B Current Condition Start: 01/09/20 07:21 Freq: Status: Active Protocol: Document 01/09/20 08:17 MB (Rec: 01/09/20 08:25 MB [id number]) Current Condition History of Current Condition Onset Date August or September 2019 Current Complaints Inability to walk with cane History of Current Condition Pt has a long history of MS and progressive weakness. She made gains with PT last year. She progressed to pool therapy . When the pool closed, she got more deconditioned. Her balance isn't quite there. She feels like she can't trust her left leg. Pt had a fall on 10/19/2019 and hit her head. She went to ED and CT head/brain was negative for acute changes. She can now get herself up when she goes down. She has had 1 fall /month since July 2019. The falls have been in the yard when she is getting tired. She denies light-headedness and dizziness. She is drinking some water. She reports 3/10 pain in her back, neck and left wrist. Treatment Goals Patient/Caregiver Goals To walk with cane. PT-OP-C Subjective Start: 01/09/20 07:21 Freq: Status: Active Protocol: Document 02/02/20 12:15 MB (Rec: 02/02/20 12:52 MB [id number]) OP-PT Subjective Patient Comments Patient Comments Pt states that she was sore after last PT treatment. Her left leg sciatic symptoms are acting up. She was able to do 3 reps of sit to stand without UE support at home this morning. PT-OP-D Balance Start: 01/09/20 07:21 Freq: Status: Active Protocol: Document 01/09/20 08:17 MB (Rec: 01/09/20 12:31 MB [id number]) OP-PT Balance Assessment Sitting Balance Static Sitting Balance Ability Normal Dynamic Sitting Balance Ability Good Sitting Balance Comments UE support for all dynamic sitting Standing Balance Static Standing Balance Ability Fair Dynamic Standing Balance Ability Poor Device Used Rollator Standing Balance Comments Pt is very uncertain with static standing with rollator. She states that she either has to stand on her left toes with right leg locked in extension or stand on her right foot and lock her left leg in extension. She can statically 21 sec. She needs rollator support for all dynamic balance in standing. Balance Tests Other Other Balance Tests Performed TUG 30 sec Morgan Fall Scale Copyright Permission PT-OP-G Mobility & Gait Start: 01/09/20 07:21 Freq: Status: Active Protocol: Document 01/09/20 08:17 MB (Rec: 01/09/20 12:31 MB [id number]) OP Mobility Evaluation Transfers Sit to Stand Pt cannot perform a sit to stand without UE support. OP Gait Assessment Comments Gait Comments Pt presents with gait 75'x2 with rollator and right knee valgus. She tends to walk on her left toes d/t leg length difference. Her gait mildly improves when she takes custom orthotic out of right shoe while keeping left one in. Occ poor foot clearance B, poor step-through and even tiffany. PT-OP-M Strength Start: 01/09/20 07:21 Freq: Status: Active Protocol: Document 01/09/20 08:17 MB (Rec: 01/09/20 12:31 MB [id number]) Hip Strength Hip Manual Muscle Testing Left Flexion (L2) 2- Poor- Comments Sitting in chair Right Flexion (L2) 3- Fair- Comments Sitting in chair Knee Strength Knee Manual Muscle Testing Left Flexion (S2) 4 Good Extension (L3) 4 Good Right Flexion (S2) 4 Good Extension (L3) 5 Normal Ankle/Foot Strength Ankle and Foot Manual Muscle Testing Left Dorsiflexion (L4) 4 Good Inversion 4 Good Eversion (S1) 4 Good Comments Left toe extension 4/5 Right Comments Right ankle fusion and grossly 5 deg of DF with eversion component, MMT deferred in setting of fusion PT-OP-Q Treatments Start: 01/09/20 07:21 Freq: Status: Active Protocol: Document 02/02/20 12:15 MB (Rec: 02/02/20 12:52 MB [id number]) Cardio Equipment Recumbent Stepper (Sci-Fit) Duration (Minutes) 17 Resistance 5 Therapeutic Exercises Supine Exercises Lumbar rotation Comments 10 reps side to side pelvic clock Comments 10 reps slowly Pelvic realignment exercises Comments 5 reps, 3 sec hold all exercises today heel slide Comments B 5 reps PT-OP-T Assessment and Plan Start: 01/09/20 07:21 Freq: Status: Active Protocol: Document 02/02/20 12:15 MB (Rec: 02/02/20 12:52 MB [id number]) Physical Therapy Assessment Evaluation Complexity Number of Personal Factors/Comorbidities 1-2 Number of Body Systems Impaired 1-2 Clinical Presentation at Evaluation Evolving Impairments Impairments Activity Tolerance,Balance, Edema,Functional Activities, Functional Mobility,Gait, Integument,Pain,Posture,ROM, Soft Tissue Mobility,Strength, Transfers Other Impairments Progressive MS, right ankle fusion, B LE cellulitis that is chronic with edema, history of falls Goals 8 Director Targeted Marketing Goal (LTG) Pt will perform aquatic HEP with I by 07/11/19. 07/01/19: Pt is performing water walking by herself and will con't with instructor psychiatric aide for exercise upon d /c. LTG Duration 6 weeks 7 Senior Living Goal (LTG) Pt will demonstrate safe pool entry and exit with asst from by 07/11/19. 07/01/19: Pt will have the asst of instructor psychiatric aide to get in and out of the pool at d/c. LTG Duration 6 weeks 6 Director Targeted Marketing Goal (LTG) Pt will deny falls for 6 weeks by 07/11/19. 07/01/19: Pt denies falls. LTG Duration 6 weeks 5 [facility] Living Goal (LTG) Pt will perform progressive HEP with I to improve LE strength, gait, balance and tranfers by 03/10/2020. LTG Duration 8 weeks Four [facility] Living Goal (LTG) Pt will gait train 25' with cane and superv to meet pt personal goal by 03/10/2020. LTG Duration 8 weeks 3 [facility] Living Goal (LTG) Pt will present with improved TUG score to 15 sec to improve gait speed by 03/10/2020. LTG Duration 8 weeks 2 [facility] Living Goal (LTG) Pt will perform 5 reps sit to stand without UE support in 13 sec to improve functional strength with transfers by . LTG Duration 8 weeks 1 Director Targeted Marketing Goal (LTG) Pt will deny falls for 2 months by 03/10/2020. LTG Duration 8 weeks Assessment Summary Assessment Given pt's report of sciatic sxs today, initiated pelvic realignment for back care today as well as other supine exercises for her back. Physical Therapy Plan Frequency and Duration Frequency of Treatment 2x/Week Duration of Treatment 8 weeks Plan of Care Start Date 01/09/20 Plan of Care End Date 03/12/20 Therapeutic Interventions Therapeutic Interventions Aquatic Therapy,Balance Training,Canalithic Repositioning,Coordination Training,Gait Training,Home Exercise Program,Lymphedema Management,Neuromuscular Re- education,Orthotic/Prosthetic Management,Patient/Caregiver Education,Self-Care/Home Management,Therapeutic Activities,Therapeutic Exercises Modalities Cold Pack/Ice Massage,Electric Stimulation,Hot Packs, Ultrasound Next Visit Focus/Plan Next Note Type Treatment Note Next Visit Plan Ongoing work with large reach and hands to help with weight shift, posture and no hands for sit to stand, gait training
--- NOTE | 2020-02-07 09:45 | PT.OTN ---
Current Diagnoses Multiple sclerosis (02/07/20) Physical Therapy Treatment Note PT-OP-A Visit Information Start: 01/09/20 07:21 Freq: Status: Active Protocol: Document 02/07/20 09:00 MB (Rec: 02/07/20 09:08 MB [id number]) Out-Patient Physical Therapy Visit Information Visit Information Visit Type Treatment Note Visit Note Medicare, unlimited visits Visit Start Time 09:00 Visit Stop Time 09:45 Total Visit Minutes 45 Visit Number 8 PT-OP-B Current Condition Start: 01/09/20 07:21 Freq: Status: Active Protocol: Document 01/09/20 08:17 MB (Rec: 01/09/20 08:25 MB [id number]) Current Condition History of Current Condition Onset Date August or September 2019 Current Complaints Inability to walk with cane History of Current Condition Pt has a long history of MS and progressive weakness. She made gains with PT last year. She progressed to pool therapy . When the pool closed, she got more deconditioned. Her balance isn't quite there. She feels like she can't trust her left leg. Pt had a fall on 10/19/2019 and hit her head. She went to ED and CT head/brain was negative for acute changes. She can now get herself up when she goes down. She has had 1 fall /month since July 2019. The falls have been in the yard when she is getting tired. She denies light-headedness and dizziness. She is drinking some water. She reports 3/10 pain in her back, neck and left wrist. Treatment Goals Patient/Caregiver Goals To walk with cane. PT-OP-C Subjective Start: 01/09/20 07:21 Freq: Status: Active Protocol: Document 02/07/20 09:00 MB (Rec: 02/07/20 09:08 MB [id number]) OP-PT Subjective Patient Comments Patient Comments Pt states that the heat is difficult. Added pelvic realignment exercises today. PT-OP-D Balance Start: 01/09/20 07:21 Freq: Status: Active Protocol: Document 01/09/20 08:17 MB (Rec: 01/09/20 12:31 MB [id number]) OP-PT Balance Assessment Sitting Balance Static Sitting Balance Ability Normal Dynamic Sitting Balance Ability Good Sitting Balance Comments UE support for all dynamic sitting Standing Balance Static Standing Balance Ability Fair Dynamic Standing Balance Ability Poor Device Used Rollator Standing Balance Comments Pt is very uncertain with static standing with rollator. She states that she either has to stand on her left toes with right leg locked in extension or stand on her right foot and lock her left leg in extension. She can statically 21 sec. She needs rollator support for all dynamic balance in standing. Balance Tests Other Other Balance Tests Performed TUG 30 sec Morgan Fall Scale Copyright Permission PT-OP-G Mobility & Gait Start: 01/09/20 07:21 Freq: Status: Active Protocol: Document 01/09/20 08:17 MB (Rec: 01/09/20 12:31 MB [id number]) OP Mobility Evaluation Transfers Sit to Stand Pt cannot perform a sit to stand without UE support. OP Gait Assessment Comments Gait Comments Pt presents with gait 75'x2 with rollator and right knee valgus. She tends to walk on her left toes d/t leg length difference. Her gait mildly improves when she takes custom orthotic out of right shoe while keeping left one in. Occ poor foot clearance B, poor step-through and even tiffany. PT-OP-M Strength Start: 01/09/20 07:21 Freq: Status: Active Protocol: Document 01/09/20 08:17 MB (Rec: 01/09/20 12:31 MB [id number]) Hip Strength Hip Manual Muscle Testing Left Flexion (L2) 2- Poor- Comments Sitting in chair Right Flexion (L2) 3- Fair- Comments Sitting in chair Knee Strength Knee Manual Muscle Testing Left Flexion (S2) 4 Good Extension (L3) 4 Good Right Flexion (S2) 4 Good Extension (L3) 5 Normal Ankle/Foot Strength Ankle and Foot Manual Muscle Testing Left Dorsiflexion (L4) 4 Good Inversion 4 Good Eversion (S1) 4 Good Comments Left toe extension 4/5 Right Comments Right ankle fusion and grossly 5 deg of DF with eversion component, MMT deferred in setting of fusion PT-OP-Q Treatments Start: 01/09/20 07:21 Freq: Status: Active Protocol: Document 02/07/20 09:00 MB (Rec: 02/07/20 09:10 MB [id number]) Cardio Equipment Recumbent Elliptical ([place]) Duration (Minutes) 13 Resistance 5 Therapeutic Exercises Supine Exercises Clams in hook lying Comments 10 reps slowly and very limited on the left Pelvic tilt and abdominal drawing in Comments 10 reps slowly, hold 2 sec Lumbar rotation Comments 10 reps side to side pelvic clock Comments 5 reps Pelvic realignment exercises Comments Performed today and added to HEP to try on bed at home Sitting Exercises sit to stand Comments 6 reps sit to stands without UE support and with hands on thighs after supi PT-OP-T Assessment and Plan Start: 01/09/20 07:21 Freq: Status: Active Protocol: Document 02/07/20 09:00 MB (Rec: 02/07/20 09:11 MB [id number]) Physical Therapy Assessment Evaluation Complexity Number of Personal Factors/Comorbidities 1-2 Number of Body Systems Impaired 1-2 Clinical Presentation at Evaluation Evolving Impairments Impairments Activity Tolerance,Balance, Edema,Functional Activities, Functional Mobility,Gait, Integument,Pain,Posture,ROM, Soft Tissue Mobility,Strength, Transfers Other Impairments Progressive MS, right ankle fusion, B LE cellulitis that is chronic with edema, history of falls Goals 8 Care Home Goal (LTG) Pt will perform aquatic HEP with I by 07/11/19. 07/01/19: Pt is performing water walking by herself and will con't with skin care instructor for exercise upon d /c. LTG Duration 6 weeks 7 Care Home Goal (LTG) Pt will demonstrate safe pool entry and exit with asst from by 07/11/19. 07/01/19: Pt will have the asst of skin care instructor to get in and out of the pool at d/c. LTG Duration 6 weeks 6 Dialer Goal (LTG) Pt will deny falls for 6 weeks by 07/11/19. 07/01/19: Pt denies falls. LTG Duration 6 weeks 5 Dialer Goal (LTG) Pt will perform progressive HEP with I to improve LE strength, gait, balance and tranfers by 03/10/2020. LTG Duration 8 weeks Four Dialer Goal (LTG) Pt will gait train 25' with cane and superv to meet pt personal goal by 03/10/2020. LTG Duration 8 weeks 3 Care Home Goal (LTG) Pt will present with improved TUG score to 15 sec to improve gait speed by 03/10/2020. LTG Duration 8 weeks 2 Care Home Goal (LTG) Pt will perform 5 reps sit to stand without UE support in 13 sec to improve functional strength with transfers by . LTG Duration 8 weeks 1 Dialer Goal (LTG) Pt will deny falls for 2 months by 03/10/2020. LTG Duration 8 weeks Assessment Summary Assessment This week is more difficult for pt d/t the heat. Pt presents with very limited left hip ER and abduction in hook lying and may benefit from gentle manual work for this. Physical Therapy Plan Frequency and Duration Frequency of Treatment 2x/Week Duration of Treatment 8 weeks Plan of Care Start Date 01/09/20 Plan of Care End Date 03/12/20 Therapeutic Interventions Therapeutic Interventions Aquatic Therapy,Balance Training,Canalithic Repositioning,Coordination Training,Gait Training,Home Exercise Program,Lymphedema Management,Neuromuscular Re- education,Orthotic/Prosthetic Management,Patient/Caregiver Education,Self-Care/Home Management,Therapeutic Activities,Therapeutic Exercises Modalities Cold Pack/Ice Massage,Electric Stimulation,Hot Packs, Ultrasound Next Visit Focus/Plan Next Note Type Treatment Note Next Visit Plan Provide further training about back care as needed, flexibility and core work. Ongoing work with large reach and hands to help with weight shift, posture and no hands for sit to stand, gait training
--- NOTE | 2020-02-13 09:45 | PT.OTN ---
Current Diagnoses Multiple sclerosis (02/13/20) Physical Therapy Treatment Note PT-OP-A Visit Information Start: 01/09/20 07:21 Freq: Status: Active Protocol: Document 02/13/20 09:01 MB (Rec: 02/13/20 09:06 MB [id number]) Out-Patient Physical Therapy Visit Information Visit Information Visit Type Treatment Note Visit Note Medicare, unlimited visits Visit Start Time 09:01 Visit Stop Time 09:45 Total Visit Minutes 44 Visit Number 9 PT-OP-B Current Condition Start: 01/09/20 07:21 Freq: Status: Active Protocol: Document 01/09/20 08:17 MB (Rec: 01/09/20 08:25 MB [id number]) Current Condition History of Current Condition Onset Date August or September 2019 Current Complaints Inability to walk with cane History of Current Condition Pt has a long history of MS and progressive weakness. She made gains with PT last year. She progressed to pool therapy . When the pool closed, she got more deconditioned. Her balance isn't quite there. She feels like she can't trust her left leg. Pt had a fall on 10/19/2019 and hit her head. She went to ED and CT head/brain was negative for acute changes. She can now get herself up when she goes down. She has had 1 fall /month since July 2019. The falls have been in the yard when she is getting tired. She denies light-headedness and dizziness. She is drinking some water. She reports 3/10 pain in her back, neck and left wrist. Treatment Goals Patient/Caregiver Goals To walk with cane. PT-OP-C Subjective Start: 01/09/20 07:21 Freq: Status: Active Protocol: Document 02/13/20 09:01 MB (Rec: 02/13/20 09:06 MB [id number]) OP-PT Subjective Patient Comments Patient Comments Pt states that she did not make it to PT last treatment date d/t UTI and it's a combo of a lot of things, including the heat. PT-OP-D Balance Start: 01/09/20 07:21 Freq: Status: Active Protocol: Document 01/09/20 08:17 MB (Rec: 01/09/20 12:31 MB [id number]) OP-PT Balance Assessment Sitting Balance Static Sitting Balance Ability Normal Dynamic Sitting Balance Ability Good Sitting Balance Comments UE support for all dynamic sitting Standing Balance Static Standing Balance Ability Fair Dynamic Standing Balance Ability Poor Device Used Rollator Standing Balance Comments Pt is very uncertain with static standing with rollator. She states that she either has to stand on her left toes with right leg locked in extension or stand on her right foot and lock her left leg in extension. She can statically 21 sec. She needs rollator support for all dynamic balance in standing. Balance Tests Other Other Balance Tests Performed TUG 30 sec Morgan Fall Scale Copyright Permission PT-OP-G Mobility & Gait Start: 01/09/20 07:21 Freq: Status: Active Protocol: Document 01/09/20 08:17 MB (Rec: 01/09/20 12:31 MB [id number]) OP Mobility Evaluation Transfers Sit to Stand Pt cannot perform a sit to stand without UE support. OP Gait Assessment Comments Gait Comments Pt presents with gait 75'x2 with rollator and right knee valgus. She tends to walk on her left toes d/t leg length difference. Her gait mildly improves when she takes custom orthotic out of right shoe while keeping left one in. Occ poor foot clearance B, poor step-through and even tiffany. PT-OP-M Strength Start: 01/09/20 07:21 Freq: Status: Active Protocol: Document 01/09/20 08:17 MB (Rec: 01/09/20 12:31 MB [id number]) Hip Strength Hip Manual Muscle Testing Left Flexion (L2) 2- Poor- Comments Sitting in chair Right Flexion (L2) 3- Fair- Comments Sitting in chair Knee Strength Knee Manual Muscle Testing Left Flexion (S2) 4 Good Extension (L3) 4 Good Right Flexion (S2) 4 Good Extension (L3) 5 Normal Ankle/Foot Strength Ankle and Foot Manual Muscle Testing Left Dorsiflexion (L4) 4 Good Inversion 4 Good Eversion (S1) 4 Good Comments Left toe extension 4/5 Right Comments Right ankle fusion and grossly 5 deg of DF with eversion component, MMT deferred in setting of fusion PT-OP-Q Treatments Start: 01/09/20 07:21 Freq: Status: Active Protocol: Document 02/13/20 09:01 MB (Rec: 02/13/20 09:06 MB [id number]) Cardio Equipment Recumbent Elliptical (Biodex) Duration (Minutes) 10 Resistance 5 Manual Therapy Treatment Manual Techniques STM, PROM left hip Comments Left hip: PROM abduction, flexion, STM adductors with positional release, STM rectus femoris with positional release, very gentle gastroc positional release, gentle grade I left hip AP mobs PT-OP-T Assessment and Plan Start: 01/09/20 07:21 Freq: Status: Active Protocol: Document 02/13/20 09:01 MB (Rec: 02/13/20 09:06 MB [id number]) Physical Therapy Assessment Evaluation Complexity Number of Personal Factors/Comorbidities 1-2 Number of Body Systems Impaired 1-2 Clinical Presentation at Evaluation Evolving Impairments Impairments Activity Tolerance,Balance, Edema,Functional Activities, Functional Mobility,Gait, Integument,Pain,Posture,ROM, Soft Tissue Mobility,Strength, Transfers Other Impairments Progressive MS, right ankle fusion, B LE cellulitis that is chronic with edema, history of falls Goals 8 Retirement Goal (LTG) Pt will perform aquatic HEP with I by 07/11/19. 07/01/19: Pt is performing water walking by herself and will con't with instructor product inspection for exercise upon d /c. LTG Duration 6 weeks 7 Retirement Goal (LTG) Pt will demonstrate safe pool entry and exit with asst from by 07/11/19. 07/01/19: Pt will have the asst of instructor product inspection to get in and out of the pool at d/c. LTG Duration 6 weeks 6 Retirement Goal (LTG) Pt will deny falls for 6 weeks by 07/11/19. 07/01/19: Pt denies falls. LTG Duration 6 weeks 5 Retirement Goal (LTG) Pt will perform progressive HEP with I to improve LE strength, gait, balance and tranfers by 03/10/2020. LTG Duration 8 weeks Four Retirement Goal (LTG) Pt will gait train 25' with cane and superv to meet pt personal goal by 03/10/2020. LTG Duration 8 weeks 3 Retirement Goal (LTG) Pt will present with improved TUG score to 15 sec to improve gait speed by 03/10/2020. LTG Duration 8 weeks 2 Document Preparation Specialist Goal (LTG) Pt will perform 5 reps sit to stand without UE support in 13 sec to improve functional strength with transfers by . LTG Duration 8 weeks 1 Document Preparation Specialist Goal (LTG) Pt will deny falls for 2 months by 03/10/2020. LTG Duration 8 weeks Assessment Summary Assessment Pt's LLE draws up into flexion after PT releases it from adductor stretching (PROM). Pt presents with increased tension calves, adductors and rectus on the LLE. Con't manual work as needed. Physical Therapy Plan Frequency and Duration Frequency of Treatment 2x/Week Duration of Treatment 8 weeks Plan of Care Start Date 01/09/20 Plan of Care End Date 03/12/20 Therapeutic Interventions Therapeutic Interventions Aquatic Therapy,Balance Training,Canalithic Repositioning,Coordination Training,Gait Training,Home Exercise Program,Lymphedema Management,Neuromuscular Re- education,Orthotic/Prosthetic Management,Patient/Caregiver Education,Self-Care/Home Management,Therapeutic Activities,Therapeutic Exercises Modalities Cold Pack/Ice Massage,Electric Stimulation,Hot Packs, Ultrasound Next Visit Focus/Plan Next Note Type Progress Note Next Visit Plan Provide further training about back care as needed, flexibility and core work. Ongoing work with large reach and hands to help with weight shift, posture and no hands for sit to stand, gait training
--- NOTE | 2020-02-15 09:35 | PT.OTN ---
Current Diagnoses Multiple sclerosis (02/15/20) Physical Therapy Treatment Note PT-OP-A Visit Information Start: 01/09/20 07:21 Freq: Status: Active Protocol: Document 02/15/20 09:00 MB (Rec: 02/15/20 09:20 MB [id number]) Out-Patient Physical Therapy Visit Information Visit Information Visit Type Progress Note Visit Note Medicare, unlimited visits Visit Start Time 09:00 Visit Stop Time 09:38 Total Visit Minutes 38 Visit Number 10 PT-OP-B Current Condition Start: 01/09/20 07:21 Freq: Status: Active Protocol: Document 01/09/20 08:17 MB (Rec: 01/09/20 08:25 MB [id number]) Current Condition History of Current Condition Onset Date August or September 2019 Current Complaints Inability to walk with cane History of Current Condition Pt has a long history of MS and progressive weakness. She made gains with PT last year. She progressed to pool therapy . When the pool closed, she got more deconditioned. Her balance isn't quite there. She feels like she can't trust her left leg. Pt had a fall on 10/19/2019 and hit her head. She went to ED and CT head/brain was negative for acute changes. She can now get herself up when she goes down. She has had 1 fall /month since July 2019. The falls have been in the yard when she is getting tired. She denies light-headedness and dizziness. She is drinking some water. She reports 3/10 pain in her back, neck and left wrist. Treatment Goals Patient/Caregiver Goals To walk with cane. PT-OP-C Subjective Start: 01/09/20 07:21 Freq: Status: Active Protocol: Document 02/15/20 09:00 MB (Rec: 02/15/20 09:20 MB [id number]) OP-PT Subjective Patient Comments Patient Comments Pt states that she is so tired all the time. She doesn't know if it's the heat or what. She would like to lose some of the weight that she has gained. Pt feels that her balance is some better because she is gardening when it is not too hot and she has not fallen. She is not using her w /c as much at home and has been using walker when getting up at night at home. PT-OP-D Balance Start: 01/09/20 07:21 Freq: Status: Active Protocol: Document 01/09/20 08:17 MB (Rec: 01/09/20 12:31 MB [id number]) OP-PT Balance Assessment Sitting Balance Static Sitting Balance Ability Normal Dynamic Sitting Balance Ability Good Sitting Balance Comments UE support for all dynamic sitting Standing Balance Static Standing Balance Ability Fair Dynamic Standing Balance Ability Poor Device Used Rollator Standing Balance Comments Pt is very uncertain with static standing with rollator. She states that she either has to stand on her left toes with right leg locked in extension or stand on her right foot and lock her left leg in extension. She can statically 21 sec. She needs rollator support for all dynamic balance in standing. Balance Tests Other Other Balance Tests Performed TUG 30 sec Morgan Fall Scale Copyright Permission PT-OP-G Mobility & Gait Start: 01/09/20 07:21 Freq: Status: Active Protocol: Document 01/09/20 08:17 MB (Rec: 01/09/20 12:31 MB [id number]) OP Mobility Evaluation Transfers Sit to Stand Pt cannot perform a sit to stand without UE support. OP Gait Assessment Comments Gait Comments Pt presents with gait 75'x2 with rollator and right knee valgus. She tends to walk on her left toes d/t leg length difference. Her gait mildly improves when she takes custom orthotic out of right shoe while keeping left one in. Occ poor foot clearance B, poor step-through and even tiffany. PT-OP-M Strength Start: 01/09/20 07:21 Freq: Status: Active Protocol: Document 01/09/20 08:17 MB (Rec: 01/09/20 12:31 MB [id number]) Hip Strength Hip Manual Muscle Testing Left Flexion (L2) 2- Poor- Comments Sitting in chair Right Flexion (L2) 3- Fair- Comments Sitting in chair Knee Strength Knee Manual Muscle Testing Left Flexion (S2) 4 Good Extension (L3) 4 Good Right Flexion (S2) 4 Good Extension (L3) 5 Normal Ankle/Foot Strength Ankle and Foot Manual Muscle Testing Left Dorsiflexion (L4) 4 Good Inversion 4 Good Eversion (S1) 4 Good Comments Left toe extension 4/5 Right Comments Right ankle fusion and grossly 5 deg of DF with eversion component, MMT deferred in setting of fusion PT-OP-Q Treatments Start: 01/09/20 07:21 Freq: Status: Active Protocol: Document 02/15/20 09:00 MB (Rec: 02/15/20 09:20 MB [id number]) Cardio Equipment Recumbent Elliptical (Biodex) Duration (Minutes) 16 Resistance 5 Therapeutic Exercises Sitting Exercises sit to stand Comments 30 sec 5 reps with right UE support Other Exercises Reviewed current HEP Comments Verbally and demo review of all current HEP Gait Training Gait Activity TUG Comments 25 sec today Gait trials with rollator Comments 50' x2 and 25' x2 with rollator today, better speed and no LOB PT-OP-T Assessment and Plan Start: 01/09/20 07:21 Freq: Status: Active Protocol: Document 02/15/20 09:00 MB (Rec: 02/15/20 09:20 MB [id number]) Physical Therapy Assessment Evaluation Complexity Number of Personal Factors/Comorbidities 1-2 Number of Body Systems Impaired 1-2 Clinical Presentation at Evaluation Evolving Impairments Impairments Activity Tolerance,Balance, Edema,Functional Activities, Functional Mobility,Gait, Integument,Pain,Posture,ROM, Soft Tissue Mobility,Strength, Transfers Other Impairments Progressive MS, right ankle fusion, B LE cellulitis that is chronic with edema, history of falls Goals 9 Fdc Goal (LTG) Pt will be able to gait train 700' in 6 minutes with rollator and superv to improve community ambulation by 2019. LTG Duration 8 weeks 6 Flower Pot Press Operator Goal (LTG) Pt will deny falls for 8 weeks by 04/16/2020. 02/15/2020: Pt denies falls since starting this course of PT. LTG Duration 8 weeks 5 Fdc Goal (LTG) Pt will perform progressive HEP with I to improve LE strength, gait, balance and tranfers by 04/16/2020. 02/15/2020: Pt is performing some exercises most days. LTG Duration 8 weeks Four Fdc Goal (LTG) Pt will gait train 25' with cane and superv to meet pt personal goal by 04/16/2020. 02/15/2020: Pt is walking some in the house with the cane, she does not bring cane in for progress note today. LTG Duration 8 weeks 3 Fdc Goal (LTG) Pt will present with improved TUG score to 15 sec to improve gait speed by 04/16/2020. 02/15/2020: Pt is able to perform TUG in 25 seconds today. LTG Duration 8 weeks 2 Fdc Goal (LTG) Pt will perform 5 reps sit to stand without UE support in 30 sec to improve functional strength with transfers by 04/16/2020. 02/15/2020: Pt is able to perform 5 reps sit to basting puller 30 sec with right UE asst today LTG Duration 8 weeks Assessment Summary Assessment Pt has progressed towards the following goals since starting PT: mobility at home (cane in the house and less w/c use and is able to use rollator to get to BR), performance of progressive HEP and no falls. She con't to require increased time for TUG and UE support for sit to stands. She con't with fatigue, weakness, decreased functional transfers and gait. She will benefit from ongoing PT to improve transfers, gait, strength and balance. Con't to work on left hip ROM deficits, adductor tension by facilitating hip flexibility. Physical Therapy Plan Frequency and Duration Frequency of Treatment 2x/Week Duration of Treatment 8 weeks Plan of Care Start Date 02/15/20 Plan of Care End Date 04/16/20 Therapeutic Interventions Therapeutic Interventions Aquatic Therapy,Balance Training,Canalithic Repositioning,Coordination Training,Gait Training,Home Exercise Program,Lymphedema Management,Neuromuscular Re- education,Orthotic/Prosthetic Management,Patient/Caregiver Education,Self-Care/Home Management,Therapeutic Activities,Therapeutic Exercises Modalities Cold Pack/Ice Massage,Electric Stimulation,Hot Packs, Ultrasound Next Visit Focus/Plan Next Note Type Progress Note Next Visit Plan Further hip ROM exercises. Provide further training about back care as needed, flexibility and core work. Ongoing work with large reach and hands to help with weight shift, posture and no hands for sit to stand, gait training
--- NOTE | 2020-02-15 09:39 | PT.OPPN ---
Current Diagnoses Multiple sclerosis (02/15/20) Physical Therapy Progress Note PT-OP-A Visit Information Start: 01/09/20 07:21 Freq: Status: Active Protocol: Document 02/15/20 09:00 MB (Rec: 02/15/20 09:20 MB [id number]) Out-Patient Physical Therapy Visit Information Visit Information Visit Type Progress Note Visit Note Medicare, unlimited visits Visit Start Time 09:00 Visit Stop Time 09:38 Total Visit Minutes 38 Visit Number 10 PT-OP-B Current Condition Start: 01/09/20 07:21 Freq: Status: Active Protocol: Document 01/09/20 08:17 MB (Rec: 01/09/20 08:25 MB [id number]) Current Condition History of Current Condition Onset Date August or September 2019 Current Complaints Inability to walk with cane History of Current Condition Pt has a long history of MS and progressive weakness. She made gains with PT last year. She progressed to pool therapy . When the pool closed, she got more deconditioned. Her balance isn't quite there. She feels like she can't trust her left leg. Pt had a fall on 10/19/2019 and hit her head. She went to ED and CT head/brain was negative for acute changes. She can now get herself up when she goes down. She has had 1 fall /month since July 2019. The falls have been in the yard when she is getting tired. She denies light-headedness and dizziness. She is drinking some water. She reports 3/10 pain in her back, neck and left wrist. Treatment Goals Patient/Caregiver Goals To walk with cane. PT-OP-C Subjective Start: 01/09/20 07:21 Freq: Status: Active Protocol: Document 02/15/20 09:00 MB (Rec: 02/15/20 09:20 MB [id number]) OP-PT Subjective Patient Comments Patient Comments Pt states that she is so tired all the time. She doesn't know if it's the heat or what. She would like to lose some of the weight that she has gained. Pt feels that her balance is some better because she is gardening when it is not too hot and she has not fallen. She is not using her w /c as much at home and has been using walker when getting up at night at home. PT-OP-D Balance Start: 01/09/20 07:21 Freq: Status: Active Protocol: Document 01/09/20 08:17 MB (Rec: 01/09/20 12:31 MB [id number]) OP-PT Balance Assessment Sitting Balance Static Sitting Balance Ability Normal Dynamic Sitting Balance Ability Good Sitting Balance Comments UE support for all dynamic sitting Standing Balance Static Standing Balance Ability Fair Dynamic Standing Balance Ability Poor Device Used Rollator Standing Balance Comments Pt is very uncertain with static standing with rollator. She states that she either has to stand on her left toes with right leg locked in extension or stand on her right foot and lock her left leg in extension. She can statically 21 sec. She needs rollator support for all dynamic balance in standing. Balance Tests Other Other Balance Tests Performed TUG 30 sec Morgan Fall Scale Copyright Permission Cathy MUNIZ, Cathy RM, [place]. Development of a scale to identify the fall- prone patient. Can J Aging 1989;8;366-7. Karo Morgan (2009). Preventing patient falls. (2nd ed). [place]: [employer]. PT-OP-G Mobility & Gait Start: 01/09/20 07:21 Freq: Status: Active Protocol: Document 01/09/20 08:17 MB (Rec: 01/09/20 12:31 MB [id number]) OP Mobility Evaluation Transfers Sit to Stand Pt cannot perform a sit to stand without UE support. OP Gait Assessment Comments Gait Comments Pt presents with gait 75'x2 with rollator and right knee valgus. She tends to walk on her left toes d/t leg length difference. Her gait mildly improves when she takes custom orthotic out of right shoe while keeping left one in. Occ poor foot clearance B, poor step-through and even tiffany. PT-OP-M Strength Start: 01/09/20 07:21 Freq: Status: Active Protocol: Document 01/09/20 08:17 MB (Rec: 01/09/20 12:31 MB [id number]) Hip Strength Hip Manual Muscle Testing Left Flexion (L2) 2- Poor- Comments Sitting in chair Right Flexion (L2) 3- Fair- Comments Sitting in chair Knee Strength Knee Manual Muscle Testing Left Flexion (S2) 4 Good Extension (L3) 4 Good Right Flexion (S2) 4 Good Extension (L3) 5 Normal Ankle/Foot Strength Ankle and Foot Manual Muscle Testing Left Dorsiflexion (L4) 4 Good Inversion 4 Good Eversion (S1) 4 Good Comments Left toe extension 4/5 Right Comments Right ankle fusion and grossly 5 deg of DF with eversion component, MMT deferred in setting of fusion PT-OP-T Assessment and Plan Start: 01/09/20 07:21 Freq: Status: Active Protocol: Document 02/15/20 09:00 MB (Rec: 02/15/20 09:20 MB [id number]) Physical Therapy Assessment Evaluation Complexity Number of Personal Factors/Comorbidities 1-2 Number of Body Systems Impaired 1-2 Clinical Presentation at Evaluation Evolving Impairments Impairments Activity Tolerance,Balance, Edema,Functional Activities, Functional Mobility,Gait, Integument,Pain,Posture,ROM, Soft Tissue Mobility,Strength, Transfers Other Impairments Progressive MS, right ankle fusion, B LE cellulitis that is chronic with edema, history of falls Goals 9 Dry Cleaning Machine Operator Helper Goal (LTG) Pt will be able to gait train 700' in 6 minutes with rollator and superv to improve community ambulation by 2019. LTG Duration 8 weeks 6 Senior Living Goal (LTG) Pt will deny falls for 8 weeks by 04/16/2020. 02/15/2020: Pt denies falls since starting this course of PT. LTG Duration 8 weeks 5 Dry Cleaning Machine Operator Helper Goal (LTG) Pt will perform progressive HEP with I to improve LE strength, gait, balance and tranfers by 04/16/2020. 02/15/2020: Pt is performing some exercises most days. LTG Duration 8 weeks Four Dry Cleaning Machine Operator Helper Goal (LTG) Pt will gait train 25' with cane and superv to meet pt personal goal by 04/16/2020. 02/15/2020: Pt is walking some in the house with the cane, she does not bring cane in for progress note today. LTG Duration 8 weeks 3 Senior Living Goal (LTG) Pt will present with improved TUG score to 15 sec to improve gait speed by 04/16/2020. 02/15/2020: Pt is able to perform TUG in 25 seconds today. LTG Duration 8 weeks 2 Dry Cleaning Machine Operator Helper Goal (LTG) Pt will perform 5 reps sit to stand without UE support in 30 sec to improve functional strength with transfers by 04/16/2020. 02/15/2020: Pt is able to perform 5 reps sit to wine fermenter 30 sec with right UE asst today LTG Duration 8 weeks Assessment Summary Assessment Pt has progressed towards the following goals since starting PT: mobility at home (cane in the house and less w/c use and is able to use rollator to get to BR), performance of progressive HEP and no falls. She con't to require increased time for TUG and UE support for sit to stands. She con't with fatigue, weakness, decreased functional transfers and gait. She will benefit from ongoing PT to improve transfers, gait, strength and balance. Con't to work on left hip ROM deficits, adductor tension by facilitating hip flexibility. Physical Therapy Plan Frequency and Duration Frequency of Treatment 2x/Week Duration of Treatment 8 weeks Plan of Care Start Date 02/15/20 Plan of Care End Date 04/16/20 Therapeutic Interventions Therapeutic Interventions Aquatic Therapy,Balance Training,Canalithic Repositioning,Coordination Training,Gait Training,Home Exercise Program,Lymphedema Management,Neuromuscular Re- education,Orthotic/Prosthetic Management,Patient/Caregiver Education,Self-Care/Home Management,Therapeutic Activities,Therapeutic Exercises Modalities Cold Pack/Ice Massage,Electric Stimulation,Hot Packs, Ultrasound Next Visit Focus/Plan Next Note Type Progress Note Next Visit Plan Further hip ROM exercises. Provide further training about back care as needed, flexibility and core work. Ongoing work with large reach and hands to help with weight shift, posture and no hands for sit to stand, gait training
--- NOTE | 2020-02-15 09:39 | PT.OPPOC ---
Physical, Occupational & Speech Therapy At [facility] Current Diagnoses Multiple sclerosis (02/15/20) Visit Care Team Role Provider Type James Perez MD Primary Care Provider Physician Specialty: Family Practice Address: [address] [place] [address], [id number] Email: [email or web address] Gabrielle Marinelli MD Attending Provider Non-Staff Referring Provider Specialty: Neurology Address: [address] [place] [address], [id number] Email: Plan Of Care PT-OP-T Assessment and Plan Start: 01/09/20 07:21 Freq: Status: Active Protocol: Document 02/15/20 09:00 MB (Rec: 02/15/20 09:20 MB [id number]) Physical Therapy Assessment Evaluation Complexity Number of Personal Factors/Comorbidities 1-2 Number of Body Systems Impaired 1-2 Clinical Presentation at Evaluation Evolving Impairments Impairments Activity Tolerance,Balance, Edema,Functional Activities, Functional Mobility,Gait, Integument,Pain,Posture,ROM, Soft Tissue Mobility,Strength, Transfers Other Impairments Progressive MS, right ankle fusion, B LE cellulitis that is chronic with edema, history of falls Goals 9 Halfway Goal (LTG) Pt will be able to gait train 700' in 6 minutes with rollator and superv to improve community ambulation by 2019. LTG Duration 8 weeks 6 Security Assessor Goal (LTG) Pt will deny falls for 8 weeks by 04/16/2020. 02/15/2020: Pt denies falls since starting this course of PT. LTG Duration 8 weeks 5 Halfway Goal (LTG) Pt will perform progressive HEP with I to improve LE strength, gait, balance and tranfers by 04/16/2020. 02/15/2020: Pt is performing some exercises most days. LTG Duration 8 weeks Four Security Assessor Goal (LTG) Pt will gait train 25' with cane and superv to meet pt personal goal by 04/16/2020. 02/15/2020: Pt is walking some in the house with the cane, she does not bring cane in for progress note today. LTG Duration 8 weeks 3 Halfway Goal (LTG) Pt will present with improved TUG score to 15 sec to improve gait speed by 04/16/2020. 02/15/2020: Pt is able to perform TUG in 25 seconds today. LTG Duration 8 weeks 2 Security Assessor Goal (LTG) Pt will perform 5 reps sit to stand without UE support in 30 sec to improve functional strength with transfers by 04/16/2020. 02/15/2020: Pt is able to perform 5 reps sit to inspector repairer sandstone 30 sec with right UE asst today LTG Duration 8 weeks Assessment Summary Assessment Pt has progressed towards the following goals since starting PT: mobility at home (cane in the house and less w/c use and is able to use rollator to get to BR), performance of progressive HEP and no falls. She con't to require increased time for TUG and UE support for sit to stands. She con't with fatigue, weakness, decreased functional transfers and gait. She will benefit from ongoing PT to improve transfers, gait, strength and balance. Con't to work on left hip ROM deficits, adductor tension by facilitating hip flexibility. Physical Therapy Plan Frequency and Duration Frequency of Treatment 2x/Week Duration of Treatment 8 weeks Plan of Care Start Date 02/15/20 Plan of Care End Date 04/16/20 Therapeutic Interventions Therapeutic Interventions Aquatic Therapy,Balance Training,Canalithic Repositioning,Coordination Training,Gait Training,Home Exercise Program,Lymphedema Management,Neuromuscular Re- education,Orthotic/Prosthetic Management,Patient/Caregiver Education,Self-Care/Home Management,Therapeutic Activities,Therapeutic Exercises Modalities Cold Pack/Ice Massage,Electric Stimulation,Hot Packs, Ultrasound Next Visit Focus/Plan Next Note Type Progress Note Next Visit Plan Further hip ROM exercises. Provide further training about back care as needed, flexibility and core work. Ongoing work with large reach and hands to help with weight shift, posture and no hands for sit to stand, gait training Plan of Care Dates Plan of Care Start Date 02/15/20 Plan of Care End Date 04/16/20 Electronically Signed by: Acacia Ordaz, PT 02/15/20 0939 Please Sign and Return: I have reviewed this Plan of Care and certify that the skilled therapy services above are required to meet the patient?s needs. Physician Signature Date Printed Name and Credentials Clinical Instructor Signature Printed Name and Credentials
--- NOTE | 2020-02-20 09:40 | PT.OTN ---
Current Diagnoses Multiple sclerosis (02/20/20) Physical Therapy Treatment Note PT-OP-A Visit Information Start: 01/09/20 07:21 Freq: Status: Active Protocol: Document 02/20/20 09:00 MB (Rec: 02/20/20 09:40 MB [id number]) Out-Patient Physical Therapy Visit Information Visit Information Visit Type Treatment Note Visit Note Medicare, unlimited visits Visit Start Time 09:00 Visit Stop Time 09:40 Total Visit Minutes 40 Visit Number 11 PT-OP-B Current Condition Start: 01/09/20 07:21 Freq: Status: Active Protocol: Document 01/09/20 08:17 MB (Rec: 01/09/20 08:25 MB [id number]) Current Condition History of Current Condition Onset Date August or September 2019 Current Complaints Inability to walk with cane History of Current Condition Pt has a long history of MS and progressive weakness. She made gains with PT last year. She progressed to pool therapy . When the pool closed, she got more deconditioned. Her balance isn't quite there. She feels like she can't trust her left leg. Pt had a fall on 10/19/2019 and hit her head. She went to ED and CT head/brain was negative for acute changes. She can now get herself up when she goes down. She has had 1 fall /month since July 2019. The falls have been in the yard when she is getting tired. She denies light-headedness and dizziness. She is drinking some water. She reports 3/10 pain in her back, neck and left wrist. Treatment Goals Patient/Caregiver Goals To walk with cane. PT-OP-C Subjective Start: 01/09/20 07:21 Freq: Status: Active Protocol: Document 02/20/20 09:00 MB (Rec: 02/20/20 09:40 MB [id number]) OP-PT Subjective Patient Comments Patient Comments Pt states that on Thursday, she slid off the bed and twisted on her left leg and might have hurt her right knee trying to get back up. Her right knee and LB are painful. She rates back pain up to 6/10 and right knee pain 6/10. PT-OP-D Balance Start: 01/09/20 07:21 Freq: Status: Active Protocol: Document 06/29/20 08:17 MB (Rec: 01/09/20 12:31 MB [id number]) OP-PT Balance Assessment Sitting Balance Static Sitting Balance Ability Normal Dynamic Sitting Balance Ability Good Sitting Balance Comments UE support for all dynamic sitting Standing Balance Static Standing Balance Ability Fair Dynamic Standing Balance Ability Poor Device Used Rollator Standing Balance Comments Pt is very uncertain with static standing with rollator. She states that she either has to stand on her left toes with right leg locked in extension or stand on her right foot and lock her left leg in extension. She can statically 21 sec. She needs rollator support for all dynamic balance in standing. Balance Tests Other Other Balance Tests Performed TUG 30 sec Morgan Fall Scale Copyright Permission PT-OP-G Mobility & Gait Start: 01/09/20 07:21 Freq: Status: Active Protocol: Document 01/09/20 08:17 MB (Rec: 01/09/20 12:31 MB [id number]) OP Mobility Evaluation Transfers Sit to Stand Pt cannot perform a sit to stand without UE support. OP Gait Assessment Comments Gait Comments Pt presents with gait 75'x2 with rollator and right knee valgus. She tends to walk on her left toes d/t leg length difference. Her gait mildly improves when she takes custom orthotic out of right shoe while keeping left one in. Occ poor foot clearance B, poor step-through and even tiffany. PT-OP-M Strength Start: 01/09/20 07:21 Freq: Status: Active Protocol: Document 01/09/20 08:17 MB (Rec: 01/09/20 12:31 MB [id number]) Hip Strength Hip Manual Muscle Testing Left Flexion (L2) 2- Poor- Comments Sitting in chair Right Flexion (L2) 3- Fair- Comments Sitting in chair Knee Strength Knee Manual Muscle Testing Left Flexion (S2) 4 Good Extension (L3) 4 Good Right Flexion (S2) 4 Good Extension (L3) 5 Normal Ankle/Foot Strength Ankle and Foot Manual Muscle Testing Left Dorsiflexion (L4) 4 Good Inversion 4 Good Eversion (S1) 4 Good Comments Left toe extension 4/5 Right Comments Right ankle fusion and grossly 5 deg of DF with eversion component, MMT deferred in setting of fusion PT-OP-Q Treatments Start: 01/09/20 07:21 Freq: Status: Active Protocol: Document 02/20/20 09:00 MB (Rec: 02/20/20 09:40 MB [id number]) Cardio Equipment Recumbent Elliptical (Biodex) Duration (Minutes) 12 Resistance 5 Therapeutic Exercises Sitting Exercises Buchanan slides hip ER AROM Sitting Exercise Name Legs out straight Comments B 10 reps and decreased range LLE Manual Therapy Treatment Taping KT right knee for support Comments Black tape c strip under patella and B I strips medial and lateral knee for support right knee Manual Techniques STM, PROM left hip Comments B STM with rolling pin for rectus femoris and vastus lateralis PT-OP-T Assessment and Plan Start: 01/09/20 07:21 Freq: Status: Active Protocol: Document 02/20/20 09:00 MB (Rec: 02/20/20 09:40 MB [id number]) Physical Therapy Assessment Evaluation Complexity Number of Personal Factors/Comorbidities 1-2 Number of Body Systems Impaired 1-2 Clinical Presentation at Evaluation Evolving Impairments Impairments Activity Tolerance,Balance, Edema,Functional Activities, Functional Mobility,Gait, Integument,Pain,Posture,ROM, Soft Tissue Mobility,Strength, Transfers Other Impairments Progressive MS, right ankle fusion, B LE cellulitis that is chronic with edema, history of falls Goals 9 P 3 Armament/Ordnance Ima Technician Goal (LTG) Pt will be able to gait train 700' in 6 minutes with rollator and superv to improve community ambulation by 2019. LTG Duration 8 weeks 6 P 3 Armament/Ordnance Ima Technician Goal (LTG) Pt will deny falls for 8 weeks by 04/16/2020. 02/15/2020: Pt denies falls since starting this course of PT. LTG Duration 8 weeks 5 P 3 Armament/Ordnance Ima Technician Goal (LTG) Pt will perform progressive HEP with I to improve LE strength, gait, balance and tranfers by 04/16/2020. 02/15/2020: Pt is performing some exercises most days. LTG Duration 8 weeks Four P 3 Armament/Ordnance Ima Technician Goal (LTG) Pt will gait train 25' with cane and superv to meet pt personal goal by 04/16/2020. 02/15/2020: Pt is walking some in the house with the cane, she does not bring cane in for progress note today. LTG Duration 8 weeks 3 Mcfp Goal (LTG) Pt will present with improved TUG score to 15 sec to improve gait speed by 04/16/2020. 02/15/2020: Pt is able to perform TUG in 25 seconds today. LTG Duration 8 weeks 2 Mcfp Goal (LTG) Pt will perform 5 reps sit to stand without UE support in 30 sec to improve functional strength with transfers by 04/16/2020. 02/15/2020: Pt is able to perform 5 reps sit to tray line supervisor 30 sec with right UE asst today LTG Duration 8 weeks Assessment Summary Assessment Addressed right knee pain today to help with mobility. Con't to work on left hip ROM deficits, adductor tension by facilitating hip flexibility. Physical Therapy Plan Frequency and Duration Frequency of Treatment 2x/Week Duration of Treatment 8 weeks Plan of Care Start Date 02/15/20 Plan of Care End Date 04/16/20 Therapeutic Interventions Therapeutic Interventions Aquatic Therapy,Balance Training,Canalithic Repositioning,Coordination Training,Gait Training,Home Exercise Program,Lymphedema Management,Neuromuscular Re- education,Orthotic/Prosthetic Management,Patient/Caregiver Education,Self-Care/Home Management,Therapeutic Activities,Therapeutic Exercises Modalities Cold Pack/Ice Massage,Electric Stimulation,Hot Packs, Ultrasound Next Visit Focus/Plan Next Note Type Progress Note Next Visit Plan Further hip ROM exercises. Provide further training about back care as needed, flexibility and core work. Ongoing work with large reach and hands to help with weight shift, posture and no hands for sit to stand, gait training
--- NOTE | 2020-02-22 09:45 | PT.OTN ---
Current Diagnoses Multiple sclerosis (02/22/20) Physical Therapy Treatment Note PT-OP-A Visit Information Start: 01/09/20 07:21 Freq: Status: Active Protocol: Document 02/22/20 09:04 MB (Rec: 02/22/20 09:23 MB [id number]) Out-Patient Physical Therapy Visit Information Visit Information Visit Type Treatment Note Visit Note Medicare, unlimited visits Visit Start Time 09:04 Visit Stop Time 09:45 Total Visit Minutes 41 Visit Number 12 PT-OP-B Current Condition Start: 01/09/20 07:21 Freq: Status: Active Protocol: Document 01/09/20 08:17 MB (Rec: 01/09/20 08:25 MB [id number]) Current Condition History of Current Condition Onset Date August or September 2019 Current Complaints Inability to walk with cane History of Current Condition Pt has a long history of MS and progressive weakness. She made gains with PT last year. She progressed to pool therapy . When the pool closed, she got more deconditioned. Her balance isn't quite there. She feels like she can't trust her left leg. Pt had a fall on 10/19/2019 and hit her head. She went to ED and CT head/brain was negative for acute changes. She can now get herself up when she goes down. She has had 1 fall /month since July 2019. The falls have been in the yard when she is getting tired. She denies light-headedness and dizziness. She is drinking some water. She reports 3/10 pain in her back, neck and left wrist. Treatment Goals Patient/Caregiver Goals To walk with cane. PT-OP-C Subjective Start: 01/09/20 07:21 Freq: Status: Active Protocol: Document 02/22/20 09:04 MB (Rec: 02/22/20 09:23 MB [id number]) OP-PT Subjective Patient Comments Patient Comments Pt states that her right knee is feeling better after the tape. PT-OP-D Balance Start: 01/09/20 07:21 Freq: Status: Active Protocol: Document 01/09/20 08:17 MB (Rec: 01/09/20 12:31 MB [id number]) OP-PT Balance Assessment Sitting Balance Static Sitting Balance Ability Normal Dynamic Sitting Balance Ability Good Sitting Balance Comments UE support for all dynamic sitting Standing Balance Static Standing Balance Ability Fair Dynamic Standing Balance Ability Poor Device Used Rollator Standing Balance Comments Pt is very uncertain with static standing with rollator. She states that she either has to stand on her left toes with right leg locked in extension or stand on her right foot and lock her left leg in extension. She can statically 21 sec. She needs rollator support for all dynamic balance in standing. Balance Tests Other Other Balance Tests Performed TUG 30 sec Morgan Fall Scale Copyright Permission PT-OP-G Mobility & Gait Start: 01/09/20 07:21 Freq: Status: Active Protocol: Document 01/09/20 08:17 MB (Rec: 01/09/20 12:31 MB [id number]) OP Mobility Evaluation Transfers Sit to Stand Pt cannot perform a sit to stand without UE support. OP Gait Assessment Comments Gait Comments Pt presents with gait 75'x2 with rollator and right knee valgus. She tends to walk on her left toes d/t leg length difference. Her gait mildly improves when she takes custom orthotic out of right shoe while keeping left one in. Occ poor foot clearance B, poor step-through and even tiffany. PT-OP-M Strength Start: 01/09/20 07:21 Freq: Status: Active Protocol: Document 01/09/20 08:17 MB (Rec: 01/09/20 12:31 MB [id number]) Hip Strength Hip Manual Muscle Testing Left Flexion (L2) 2- Poor- Comments Sitting in chair Right Flexion (L2) 3- Fair- Comments Sitting in chair Knee Strength Knee Manual Muscle Testing Left Flexion (S2) 4 Good Extension (L3) 4 Good Right Flexion (S2) 4 Good Extension (L3) 5 Normal Ankle/Foot Strength Ankle and Foot Manual Muscle Testing Left Dorsiflexion (L4) 4 Good Inversion 4 Good Eversion (S1) 4 Good Comments Left toe extension 4/5 Right Comments Right ankle fusion and grossly 5 deg of DF with eversion component, MMT deferred in setting of fusion PT-OP-Q Treatments Start: 01/09/20 07:21 Freq: Status: Active Protocol: Document 02/22/20 09:04 MB (Rec: 02/22/20 09:23 MB [id number]) Cardio Equipment Recumbent Elliptical (RETC) Duration (Minutes) 15 Resistance 5 Therapeutic Exercises Supine Exercises Core progression in hook lying Comments Lumbar rotation, HS, knee drop outs and knee fall outs Pelvic tilt and abdominal drawing in Comments Performed as set position for further core progression Pelvic realignment exercises Comments Reviewed today Manual Therapy Treatment Taping KT right knee for support Comments Black tape c strip under patella and B I strips medial and lateral knee for support right knee PT-OP-T Assessment and Plan Start: 01/09/20 07:21 Freq: Status: Active Protocol: Document 02/22/20 09:04 MB (Rec: 02/22/20 09:23 MB [id number]) Physical Therapy Assessment Evaluation Complexity Number of Personal Factors/Comorbidities 1-2 Number of Body Systems Impaired 1-2 Clinical Presentation at Evaluation Evolving Impairments Impairments Activity Tolerance,Balance, Edema,Functional Activities, Functional Mobility,Gait, Integument,Pain,Posture,ROM, Soft Tissue Mobility,Strength, Transfers Other Impairments Progressive MS, right ankle fusion, B LE cellulitis that is chronic with edema, history of falls Goals 9 Explosives Engineer Goal (LTG) Pt will be able to gait train 700' in 6 minutes with rollator and superv to improve community ambulation by 2019. LTG Duration 8 weeks 6 Usp Goal (LTG) Pt will deny falls for 8 weeks by 04/16/2020. 02/15/2020: Pt denies falls since starting this course of PT. LTG Duration 8 weeks 5 Usp Goal (LTG) Pt will perform progressive HEP with I to improve LE strength, gait, balance and tranfers by 04/16/2020. 02/15/2020: Pt is performing some exercises most days. LTG Duration 8 weeks Four Usp Goal (LTG) Pt will gait train 25' with cane and superv to meet pt personal goal by 04/16/2020. 02/15/2020: Pt is walking some in the house with the cane, she does not bring cane in for progress note today. LTG Duration 8 weeks 3 Explosives Engineer Goal (LTG) Pt will present with improved TUG score to 15 sec to improve gait speed by 04/16/2020. 02/15/2020: Pt is able to perform TUG in 25 seconds today. LTG Duration 8 weeks 2 Usp Goal (LTG) Pt will perform 5 reps sit to stand without UE support in 30 sec to improve functional strength with transfers by 04/16/2020. 02/15/2020: Pt is able to perform 5 reps sit to rubber extrusion machine operator 30 sec with right UE asst today LTG Duration 8 weeks Assessment Summary Assessment Progressed core exercises in hook lying today. LLE has less control and tends to fall inward in hook lying. Con't to work on left hip ROM deficits , adductor tension by facilitating hip flexibility. Physical Therapy Plan Frequency and Duration Frequency of Treatment 2x/Week Duration of Treatment 8 weeks Plan of Care Start Date 02/15/20 Plan of Care End Date 04/16/20 Therapeutic Interventions Therapeutic Interventions Aquatic Therapy,Balance Training,Canalithic Repositioning,Coordination Training,Gait Training,Home Exercise Program,Lymphedema Management,Neuromuscular Re- education,Orthotic/Prosthetic Management,Patient/Caregiver Education,Self-Care/Home Management,Therapeutic Activities,Therapeutic Exercises Modalities Cold Pack/Ice Massage,Electric Stimulation,Hot Packs, Ultrasound Next Visit Focus/Plan Next Note Type Progress Note Next Visit Plan Neuromuscular re-ed and PNF with PT support to help left hip. Further hip ROM exercises , hook lying with ball. Provide further training about back care as needed, flexibility and core work. Ongoing work with large reach and hands to help with weight shift, posture and no hands for sit to stand, gait training
--- NOTE | 2020-02-27 09:40 | PT.OTN ---
Current Diagnoses Multiple sclerosis (02/27/20) Physical Therapy Treatment Note PT-OP-A Visit Information Start: 01/09/20 07:21 Freq: Status: Active Protocol: Document 02/27/20 09:00 MB (Rec: 02/27/20 09:09 MB [id number]) Out-Patient Physical Therapy Visit Information Visit Information Visit Type Treatment Note Visit Note Medicare Visit Start Time 09:00 Visit Stop Time 09:40 Total Visit Minutes 40 Visit Number 13 PT-OP-B Current Condition Start: 01/09/20 07:21 Freq: Status: Active Protocol: Document 01/09/20 08:17 MB (Rec: 01/09/20 08:25 MB [id number]) Current Condition History of Current Condition Onset Date August or September 2019 Current Complaints Inability to walk with cane History of Current Condition Pt has a long history of MS and progressive weakness. She made gains with PT last year. She progressed to pool therapy . When the pool closed, she got more deconditioned. Her balance isn't quite there. She feels like she can't trust her left leg. Pt had a fall on 10/19/2019 and hit her head. She went to ED and CT head/brain was negative for acute changes. She can now get herself up when she goes down. She has had 1 fall /month since July 2019. The falls have been in the yard when she is getting tired. She denies light-headedness and dizziness. She is drinking some water. She reports 3/10 pain in her back, neck and left wrist. Treatment Goals Patient/Caregiver Goals To walk with cane. PT-OP-C Subjective Start: 01/09/20 07:21 Freq: Status: Active Protocol: Document 02/27/20 09:00 MB (Rec: 02/27/20 09:09 MB [id number]) OP-PT Subjective Patient Comments Patient Comments Pt reports that she is worn out from the heat. She is worn out today. PT-OP-D Balance Start: 01/09/20 07:21 Freq: Status: Active Protocol: Document 01/09/20 08:17 MB (Rec: 01/09/20 12:31 MB [id number]) OP-PT Balance Assessment Sitting Balance Static Sitting Balance Ability Normal Dynamic Sitting Balance Ability Good Sitting Balance Comments UE support for all dynamic sitting Standing Balance Static Standing Balance Ability Fair Dynamic Standing Balance Ability Poor Device Used Rollator Standing Balance Comments Pt is very uncertain with static standing with rollator. She states that she either has to stand on her left toes with right leg locked in extension or stand on her right foot and lock her left leg in extension. She can statically 21 sec. She needs rollator support for all dynamic balance in standing. Balance Tests Other Other Balance Tests Performed TUG 30 sec Morgan Fall Scale Copyright Permission PT-OP-G Mobility & Gait Start: 01/09/20 07:21 Freq: Status: Active Protocol: Document 01/09/20 08:17 MB (Rec: 01/09/20 12:31 MB [id number]) OP Mobility Evaluation Transfers Sit to Stand Pt cannot perform a sit to stand without UE support. OP Gait Assessment Comments Gait Comments Pt presents with gait 75'x2 with rollator and right knee valgus. She tends to walk on her left toes d/t leg length difference. Her gait mildly improves when she takes custom orthotic out of right shoe while keeping left one in. Occ poor foot clearance B, poor step-through and even tiffany. PT-OP-M Strength Start: 01/09/20 07:21 Freq: Status: Active Protocol: Document 01/09/20 08:17 MB (Rec: 01/09/20 12:31 MB [id number]) Hip Strength Hip Manual Muscle Testing Left Flexion (L2) 2- Poor- Comments Sitting in chair Right Flexion (L2) 3- Fair- Comments Sitting in chair Knee Strength Knee Manual Muscle Testing Left Flexion (S2) 4 Good Extension (L3) 4 Good Right Flexion (S2) 4 Good Extension (L3) 5 Normal Ankle/Foot Strength Ankle and Foot Manual Muscle Testing Left Dorsiflexion (L4) 4 Good Inversion 4 Good Eversion (S1) 4 Good Comments Left toe extension 4/5 Right Comments Right ankle fusion and grossly 5 deg of DF with eversion component, MMT deferred in setting of fusion PT-OP-Q Treatments Start: 01/09/20 07:21 Freq: Status: Active Protocol: Document 02/27/20 09:00 MB (Rec: 02/27/20 09:09 MB [id number]) Cardio Equipment Recumbent Elliptical ([place]) Duration (Minutes) 10 Resistance 5 Therapeutic Exercises Supine Exercises Core progression in hook lying Side bilateral Comments Lumbar rotation, HS, knee drop outs and knee fall outs, PT assist left leg Pelvic tilt and abdominal drawing in Comments Performed before core exercises Pelvic realignment exercises Comments 5 reps 3 sec hold today Manual Therapy Treatment Taping KT right knee for support Comments Black tape c strip under patella and B I strips medial and lateral knee for support right knee PT-OP-T Assessment and Plan Start: 01/09/20 07:21 Freq: Status: Active Protocol: Document 02/27/20 09:00 MB (Rec: 02/27/20 09:09 MB [id number]) Physical Therapy Assessment Evaluation Complexity Number of Personal Factors/Comorbidities 1-2 Number of Body Systems Impaired 1-2 Clinical Presentation at Evaluation Evolving Impairments Impairments Activity Tolerance,Balance, Edema,Functional Activities, Functional Mobility,Gait, Integument,Pain,Posture,ROM, Soft Tissue Mobility,Strength, Transfers Other Impairments Progressive MS, right ankle fusion, B LE cellulitis that is chronic with edema, history of falls Goals 9 Senior Living Goal (LTG) Pt will be able to gait train 700' in 6 minutes with rollator and superv to improve community ambulation by 2019. LTG Duration 8 weeks 6 Senior Living Goal (LTG) Pt will deny falls for 8 weeks by 04/16/2020. 02/15/2020: Pt denies falls since starting this course of PT. LTG Duration 8 weeks 5 Corrugator Operator Helper Goal (LTG) Pt will perform progressive HEP with I to improve LE strength, gait, balance and tranfers by 04/16/2020. 02/15/2020: Pt is performing some exercises most days. LTG Duration 8 weeks Four Senior Living Goal (LTG) Pt will gait train 25' with cane and superv to meet pt personal goal by 04/16/2020. 02/15/2020: Pt is walking some in the house with the cane, she does not bring cane in for progress note today. LTG Duration 8 weeks 3 Senior Living Goal (LTG) Pt will present with improved TUG score to 15 sec to improve gait speed by 04/16/2020. 02/15/2020: Pt is able to perform TUG in 25 seconds today. LTG Duration 8 weeks 2 Senior Living Goal (LTG) Pt will perform 5 reps sit to stand without UE support in 30 sec to improve functional strength with transfers by 04/16/2020. 02/15/2020: Pt is able to perform 5 reps sit to binder caser 30 sec with right UE asst today LTG Duration 8 weeks Assessment Summary Assessment Pt fatigued today d/t heat over weekend and this morning. Practiced pelvic realignment and core exercises today d/t pt was unable to perform over the weekend d/t heat fatigue. Pt's left hip weakness and decrease range con't to make progressive core and leg exercises difficult. Physical Therapy Plan Frequency and Duration Frequency of Treatment 2x/Week Duration of Treatment 8 weeks Plan of Care Start Date 02/15/20 Plan of Care End Date 04/16/20 Therapeutic Interventions Therapeutic Interventions Aquatic Therapy,Balance Training,Canalithic Repositioning,Coordination Training,Gait Training,Home Exercise Program,Lymphedema Management,Neuromuscular Re- education,Orthotic/Prosthetic Management,Patient/Caregiver Education,Self-Care/Home Management,Therapeutic Activities,Therapeutic Exercises Modalities Cold Pack/Ice Massage,Electric Stimulation,Hot Packs, Ultrasound Next Visit Focus/Plan Next Note Type Progress Note Next Visit Plan Neuromuscular re-ed and PNF with PT support to help left hip. Further hip ROM exercises , hook lying with ball. Provide further training about back care as needed, flexibility and core work. Ongoing work with large reach and hands to help with weight shift, posture and no hands for sit to stand, gait training
--- NOTE | 2020-02-29 09:41 | PT.OTN ---
Current Diagnoses Multiple sclerosis (02/29/20) Physical Therapy Treatment Note PT-OP-A Visit Information Start: 01/09/20 07:21 Freq: Status: Active Protocol: Document 02/29/20 09:00 MB (Rec: 02/29/20 09:39 MB [id number]) Out-Patient Physical Therapy Visit Information Visit Information Visit Type Treatment Note Visit Note Medicare Visit Start Time 09:00 Visit Stop Time 09:39 Total Visit Minutes 39 Visit Number 14 PT-OP-B Current Condition Start: 01/09/20 07:21 Freq: Status: Active Protocol: Document 01/09/20 08:17 MB (Rec: 01/09/20 08:25 MB [id number]) Current Condition History of Current Condition Onset Date August or September 2019 Current Complaints Inability to walk with cane History of Current Condition Pt has a long history of MS and progressive weakness. She made gains with PT last year. She progressed to pool therapy . When the pool closed, she got more deconditioned. Her balance isn't quite there. She feels like she can't trust her left leg. Pt had a fall on 10/19/2019 and hit her head. She went to ED and CT head/brain was negative for acute changes. She can now get herself up when she goes down. She has had 1 fall /month since July 2019. The falls have been in the yard when she is getting tired. She denies light-headedness and dizziness. She is drinking some water. She reports 3/10 pain in her back, neck and left wrist. Treatment Goals Patient/Caregiver Goals To walk with cane. PT-OP-C Subjective Start: 01/09/20 07:21 Freq: Status: Active Protocol: Document 02/29/20 09:00 MB (Rec: 02/29/20 09:39 MB [id number]) OP-PT Subjective Patient Comments Patient Comments Pt states that her energy is still low and she is taking breaks with activities. PT-OP-D Balance Start: 01/09/20 07:21 Freq: Status: Active Protocol: Document 01/09/20 08:17 MB (Rec: 01/09/20 12:31 MB [id number]) OP-PT Balance Assessment Sitting Balance Static Sitting Balance Ability Normal Dynamic Sitting Balance Ability Good Sitting Balance Comments UE support for all dynamic sitting Standing Balance Static Standing Balance Ability Fair Dynamic Standing Balance Ability Poor Device Used Rollator Standing Balance Comments Pt is very uncertain with static standing with rollator. She states that she either has to stand on her left toes with right leg locked in extension or stand on her right foot and lock her left leg in extension. She can statically 21 sec. She needs rollator support for all dynamic balance in standing. Balance Tests Other Other Balance Tests Performed TUG 30 sec Morgan Fall Scale Copyright Permission PT-OP-G Mobility & Gait Start: 01/09/20 07:21 Freq: Status: Active Protocol: Document 01/09/20 08:17 MB (Rec: 01/09/20 12:31 MB [id number]) OP Mobility Evaluation Transfers Sit to Stand Pt cannot perform a sit to stand without UE support. OP Gait Assessment Comments Gait Comments Pt presents with gait 75'x2 with rollator and right knee valgus. She tends to walk on her left toes d/t leg length difference. Her gait mildly improves when she takes custom orthotic out of right shoe while keeping left one in. Occ poor foot clearance B, poor step-through and even tiffany. PT-OP-M Strength Start: 01/09/20 07:21 Freq: Status: Active Protocol: Document 01/09/20 08:17 MB (Rec: 01/09/20 12:31 MB [id number]) Hip Strength Hip Manual Muscle Testing Left Flexion (L2) 2- Poor- Comments Sitting in chair Right Flexion (L2) 3- Fair- Comments Sitting in chair Knee Strength Knee Manual Muscle Testing Left Flexion (S2) 4 Good Extension (L3) 4 Good Right Flexion (S2) 4 Good Extension (L3) 5 Normal Ankle/Foot Strength Ankle and Foot Manual Muscle Testing Left Dorsiflexion (L4) 4 Good Inversion 4 Good Eversion (S1) 4 Good Comments Left toe extension 4/5 Right Comments Right ankle fusion and grossly 5 deg of DF with eversion component, MMT deferred in setting of fusion PT-OP-Q Treatments Start: 01/09/20 07:21 Freq: Status: Active Protocol: Document 02/29/20 09:00 MB (Rec: 02/29/20 09:39 MB [id number]) Cardio Equipment Recumbent Elliptical ([employer]) Duration (Minutes) 10 Resistance 5 Therapeutic Exercises Sitting Exercises sit to stand Reps/Minutes 30 sec: 8 reps UE support Comments Multiple trials with exercises , UE use Gait Training Gait Activity TUG Comments TUst rep: 36 sec 2nd rep: 25 sec 3rd rep: 28 sec 4th rep: 21 sec // bar gait Comments Hurdles: B UE support and pt slides hands along // bars... occ trouble clearing ellyn x4 reps PT-OP-T Assessment and Plan Start: 01/09/20 07:21 Freq: Status: Active Protocol: Document 02/29/20 09:00 MB (Rec: 02/29/20 09:39 MB [id number]) Physical Therapy Assessment Evaluation Complexity Number of Personal Factors/Comorbidities 1-2 Number of Body Systems Impaired 1-2 Clinical Presentation at Evaluation Evolving Impairments Impairments Activity Tolerance,Balance, Edema,Functional Activities, Functional Mobility,Gait, Integument,Pain,Posture,ROM, Soft Tissue Mobility,Strength, Transfers Other Impairments Progressive MS, right ankle fusion, B LE cellulitis that is chronic with edema, history of falls Goals 9 Grain Spouter Goal (LTG) Pt will be able to gait train 700' in 6 minutes with rollator and superv to improve community ambulation by 2019. LTG Duration 8 weeks 6 Care Home Goal (LTG) Pt will deny falls for 8 weeks by 04/16/2020. 02/15/2020: Pt denies falls since starting this course of PT. LTG Duration 8 weeks 5 Care Home Goal (LTG) Pt will perform progressive HEP with I to improve LE strength, gait, balance and tranfers by 04/16/2020. 02/15/2020: Pt is performing some exercises most days. LTG Duration 8 weeks Four Grain Spouter Goal (LTG) Pt will gait train 25' with cane and superv to meet pt personal goal by 04/16/2020. 02/15/2020: Pt is walking some in the house with the cane, she does not bring cane in for progress note today. LTG Duration 8 weeks 3 Care Home Goal (LTG) Pt will present with improved TUG score to 15 sec to improve gait speed by 04/16/2020. 02/15/2020: Pt is able to perform TUG in 25 seconds today. LTG Duration 8 weeks 2 Care Home Goal (LTG) Pt will perform 5 reps sit to stand without UE support in 30 sec to improve functional strength with transfers by 04/16/2020. 02/15/2020: Pt is able to perform 5 reps sit to stain applicator 30 sec with right UE asst today LTG Duration 8 weeks Assessment Summary Assessment Progressed gait exercises today with increased rest breaks d/t fatigue. Con't progression. MS flare with heat is a factor for her performance. Physical Therapy Plan Frequency and Duration Frequency of Treatment 2x/Week Duration of Treatment 8 weeks Plan of Care Start Date 02/15/20 Plan of Care End Date 04/16/20 Therapeutic Interventions Therapeutic Interventions Aquatic Therapy,Balance Training,Canalithic Repositioning,Coordination Training,Gait Training,Home Exercise Program,Lymphedema Management,Neuromuscular Re- education,Orthotic/Prosthetic Management,Patient/Caregiver Education,Self-Care/Home Management,Therapeutic Activities,Therapeutic Exercises Modalities Cold Pack/Ice Massage,Electric Stimulation,Hot Packs, Ultrasound Next Visit Focus/Plan Next Note Type Progress Note Next Visit Plan Neuromuscular re-ed and PNF with PT support to help left hip. Further hip ROM exercises , hook lying with ball. Provide further training about back care as needed, flexibility and core work. Ongoing work with large reach and hands to help with weight shift, posture and no hands for sit to stand, gait training
--- NOTE | 2020-03-05 09:43 | PT.OTN ---
Current Diagnoses Multiple sclerosis (03/05/20) Physical Therapy Treatment Note PT-OP-A Visit Information Start: 01/09/20 07:21 Freq: Status: Active Protocol: Document 03/05/20 09:03 MB (Rec: 03/05/20 09:41 MB [id number]) Out-Patient Physical Therapy Visit Information Visit Information Visit Type Treatment Note Visit Start Time 09:03 Visit Stop Time 09:41 Total Visit Minutes 38 Visit Number 15 PT-OP-B Current Condition Start: 01/09/20 07:21 Freq: Status: Active Protocol: Document 01/09/20 08:17 MB (Rec: 01/09/20 08:25 MB [id number]) Current Condition History of Current Condition Onset Date August or September 2019 Current Complaints Inability to walk with cane History of Current Condition Pt has a long history of MS and progressive weakness. She made gains with PT last year. She progressed to pool therapy . When the pool closed, she got more deconditioned. Her balance isn't quite there. She feels like she can't trust her left leg. Pt had a fall on 10/19/2019 and hit her head. She went to ED and CT head/brain was negative for acute changes. She can now get herself up when she goes down. She has had 1 fall /month since July 2019. The falls have been in the yard when she is getting tired. She denies light-headedness and dizziness. She is drinking some water. She reports 3/10 pain in her back, neck and left wrist. Treatment Goals Patient/Caregiver Goals To walk with cane. PT-OP-C Subjective Start: 01/09/20 07:21 Freq: Status: Active Protocol: Document 03/05/20 09:03 MB (Rec: 03/05/20 09:41 MB [id number]) OP-PT Subjective Patient Comments Patient Comments I'm tired today. I worked two days in the yard. PT-OP-D Balance Start: 01/09/20 07:21 Freq: Status: Active Protocol: Document 01/09/20 08:17 MB (Rec: 01/09/20 12:31 MB [id number]) OP-PT Balance Assessment Sitting Balance Static Sitting Balance Ability Normal Dynamic Sitting Balance Ability Good Sitting Balance Comments UE support for all dynamic sitting Standing Balance Static Standing Balance Ability Fair Dynamic Standing Balance Ability Poor Device Used Rollator Standing Balance Comments Pt is very uncertain with static standing with rollator. She states that she either has to stand on her left toes with right leg locked in extension or stand on her right foot and lock her left leg in extension. She can statically 21 sec. She needs rollator support for all dynamic balance in standing. Balance Tests Other Other Balance Tests Performed TUG 30 sec Morgan Fall Scale Copyright Permission PT-OP-G Mobility & Gait Start: 01/09/20 07:21 Freq: Status: Active Protocol: Document 01/09/20 08:17 MB (Rec: 01/09/20 12:31 MB [id number]) OP Mobility Evaluation Transfers Sit to Stand Pt cannot perform a sit to stand without UE support. OP Gait Assessment Comments Gait Comments Pt presents with gait 75'x2 with rollator and right knee valgus. She tends to walk on her left toes d/t leg length difference. Her gait mildly improves when she takes custom orthotic out of right shoe while keeping left one in. Occ poor foot clearance B, poor step-through and even tiffany. PT-OP-M Strength Start: 01/09/20 07:21 Freq: Status: Active Protocol: Document 01/09/20 08:17 MB (Rec: 01/09/20 12:31 MB [id number]) Hip Strength Hip Manual Muscle Testing Left Flexion (L2) 2- Poor- Comments Sitting in chair Right Flexion (L2) 3- Fair- Comments Sitting in chair Knee Strength Knee Manual Muscle Testing Left Flexion (S2) 4 Good Extension (L3) 4 Good Right Flexion (S2) 4 Good Extension (L3) 5 Normal Ankle/Foot Strength Ankle and Foot Manual Muscle Testing Left Dorsiflexion (L4) 4 Good Inversion 4 Good Eversion (S1) 4 Good Comments Left toe extension 4/5 Right Comments Right ankle fusion and grossly 5 deg of DF with eversion component, MMT deferred in setting of fusion PT-OP-Q Treatments Start: 01/09/20 07:21 Freq: Status: Active Protocol: Document 03/05/20 09:03 MB (Rec: 03/05/20 09:41 MB [id number]) Cardio Equipment Recumbent Elliptical ([employer]) Duration (Minutes) 11 Resistance 5 Gait Training Gait Activity Rollator gait, lowered it Comments 1 lower and pt is able to walk much better 20', gait even better when lowered another 1 and so left this manner TUG Comments TUG: With rollator as performed before 1st rep: 28 sec and does not clear last square of gait distance 2nd rep: pt walks twice and so 43 sec Tried with cane: 23 sec to gait train 6' and then PT brings chair up to pt 1 Comments Gait training with SPC with dioncane bottom--pt uses in right hand and cane is 3 too tall to begin with. 5' Lowered 2 and pt can gait 10' , less fatigue CGA for gait trials with cane PT-OP-T Assessment and Plan Start: 01/09/20 07:21 Freq: Status: Active Protocol: Document 03/05/20 09:03 MB (Rec: 03/05/20 09:41 MB [id number]) Physical Therapy Assessment Evaluation Complexity Number of Personal Factors/Comorbidities 1-2 Number of Body Systems Impaired 1-2 Clinical Presentation at Evaluation Evolving Impairments Impairments Activity Tolerance,Balance, Edema,Functional Activities, Functional Mobility,Gait, Integument,Pain,Posture,ROM, Soft Tissue Mobility,Strength, Transfers Other Impairments Progressive MS, right ankle fusion, B LE cellulitis that is chronic with edema, history of falls Goals 9 Usp Goal (LTG) Pt will be able to gait train 700' in 6 minutes with rollator and superv to improve community ambulation by 2019. LTG Duration 8 weeks 6 Nipple Maker Goal (LTG) Pt will deny falls for 8 weeks by 04/16/2020. 02/15/2020: Pt denies falls since starting this course of PT. LTG Duration 8 weeks 5 Nipple Maker Goal (LTG) Pt will perform progressive HEP with I to improve LE strength, gait, balance and tranfers by 04/16/2020. 02/15/2020: Pt is performing some exercises most days. LTG Duration 8 weeks Four Usp Goal (LTG) Pt will gait train 25' with cane and superv to meet pt personal goal by 04/16/2020. 02/15/2020: Pt is walking some in the house with the cane, she does not bring cane in for progress note today. LTG Duration 8 weeks 3 Nipple Maker Goal (LTG) Pt will present with improved TUG score to 15 sec to improve gait speed by 04/16/2020. 02/15/2020: Pt is able to perform TUG in 25 seconds today. LTG Duration 8 weeks 2 Usp Goal (LTG) Pt will perform 5 reps sit to stand without UE support in 30 sec to improve functional strength with transfers by 04/16/2020. 02/15/2020: Pt is able to perform 5 reps sit to advertising designer 30 sec with right UE asst today LTG Duration 8 weeks Assessment Summary Assessment Pt con't with fatigue but is trying to work in the yard and take breaks. She follows-up with neurologist in June and is seeing her every 6 months. PT and pt anticipate that given her progressive MS, she will likely need PT course each 6 months to 12 months. Lots of rest breaks with gait training today. Physical Therapy Plan Frequency and Duration Frequency of Treatment 2x/Week Duration of Treatment 8 weeks Plan of Care Start Date 02/15/20 Plan of Care End Date 04/16/20 Therapeutic Interventions Therapeutic Interventions Aquatic Therapy,Balance Training,Canalithic Repositioning,Coordination Training,Gait Training,Home Exercise Program,Lymphedema Management,Neuromuscular Re- education,Orthotic/Prosthetic Management,Patient/Caregiver Education,Self-Care/Home Management,Therapeutic Activities,Therapeutic Exercises Modalities Cold Pack/Ice Massage,Electric Stimulation,Hot Packs, Ultrasound Next Visit Focus/Plan Next Note Type Progress Note Next Visit Plan Neuromuscular re-ed and PNF with PT support to help left hip. Further hip ROM exercises , hook lying with ball. Provide further training about back care as needed, flexibility and core work. Ongoing work with large reach and hands to help with weight shift, posture and no hands for sit to stand, gait training
--- NOTE | 2020-03-07 09:46 | PT.OTN ---
Current Diagnoses Multiple sclerosis (03/07/20) Physical Therapy Treatment Note PT-OP-A Visit Information Start: 01/09/20 07:21 Freq: Status: Active Protocol: Document 03/07/20 08:57 MB (Rec: 03/07/20 09:16 MB [id number]) Out-Patient Physical Therapy Visit Information Visit Information Visit Type Treatment Note Visit Start Time 08:57 Visit Stop Time 09:42 Total Visit Minutes 45 Visit Number 16 PT-OP-B Current Condition Start: 01/09/20 07:21 Freq: Status: Active Protocol: Document 01/09/20 08:17 MB (Rec: 01/09/20 08:25 MB [id number]) Current Condition History of Current Condition Onset Date August or September 2019 Current Complaints Inability to walk with cane History of Current Condition Pt has a long history of MS and progressive weakness. She made gains with PT last year. She progressed to pool therapy . When the pool closed, she got more deconditioned. Her balance isn't quite there. She feels like she can't trust her left leg. Pt had a fall on 10/19/2019 and hit her head. She went to ED and CT head/brain was negative for acute changes. She can now get herself up when she goes down. She has had 1 fall /month since July 2019. The falls have been in the yard when she is getting tired. She denies light-headedness and dizziness. She is drinking some water. She reports 3/10 pain in her back, neck and left wrist. Treatment Goals Patient/Caregiver Goals To walk with cane. PT-OP-C Subjective Start: 01/09/20 07:21 Freq: Status: Active Protocol: Document 03/07/20 08:57 MB (Rec: 03/07/20 09:16 MB [id number]) OP-PT Subjective Patient Comments Patient Comments My right leg is a little sore . My legs haven't been working well this week. PT-OP-D Balance Start: 01/09/20 07:21 Freq: Status: Active Protocol: Document 01/09/20 08:17 MB (Rec: 01/09/20 12:31 MB [id number]) OP-PT Balance Assessment Sitting Balance Static Sitting Balance Ability Normal Dynamic Sitting Balance Ability Good Sitting Balance Comments UE support for all dynamic sitting Standing Balance Static Standing Balance Ability Fair Dynamic Standing Balance Ability Poor Device Used Rollator Standing Balance Comments Pt is very uncertain with static standing with rollator. She states that she either has to stand on her left toes with right leg locked in extension or stand on her right foot and lock her left leg in extension. She can statically 21 sec. She needs rollator support for all dynamic balance in standing. Balance Tests Other Other Balance Tests Performed TUG 30 sec Morgan Fall Scale Copyright Permission PT-OP-G Mobility & Gait Start: 01/09/20 07:21 Freq: Status: Active Protocol: Document 01/09/20 08:17 MB (Rec: 01/09/20 12:31 MB [id number]) OP Mobility Evaluation Transfers Sit to Stand Pt cannot perform a sit to stand without UE support. OP Gait Assessment Comments Gait Comments Pt presents with gait 75'x2 with rollator and right knee valgus. She tends to walk on her left toes d/t leg length difference. Her gait mildly improves when she takes custom orthotic out of right shoe while keeping left one in. Occ poor foot clearance B, poor step-through and even tiffany. PT-OP-M Strength Start: 01/09/20 07:21 Freq: Status: Active Protocol: Document 01/09/20 08:17 MB (Rec: 01/09/20 12:31 MB [id number]) Hip Strength Hip Manual Muscle Testing Left Flexion (L2) 2- Poor- Comments Sitting in chair Right Flexion (L2) 3- Fair- Comments Sitting in chair Knee Strength Knee Manual Muscle Testing Left Flexion (S2) 4 Good Extension (L3) 4 Good Right Flexion (S2) 4 Good Extension (L3) 5 Normal Ankle/Foot Strength Ankle and Foot Manual Muscle Testing Left Dorsiflexion (L4) 4 Good Inversion 4 Good Eversion (S1) 4 Good Comments Left toe extension 4/5 Right Comments Right ankle fusion and grossly 5 deg of DF with eversion component, MMT deferred in setting of fusion PT-OP-Q Treatments Start: 01/09/20 07:21 Freq: Status: Active Protocol: Document 03/07/20 08:57 MB (Rec: 03/07/20 09:16 MB [id number]) Cardio Equipment Recumbent Elliptical ([employer]) Duration (Minutes) 10 Resistance 5 Manual Therapy Treatment Taping KT right knee for support Comments Black KT to support right knee : c strip under patella and B I strips medial and lateral knee Neuro Re-Education Treatment Movement Re-Education Movement Re-education Activities PNF B LEs in sidelying with facilitation for abduction, ER , IR, extension and flexion hip and DF and PF ankles and knee flexion and extension PT-OP-T Assessment and Plan Start: 01/09/20 07:21 Freq: Status: Active Protocol: Document 03/07/20 08:57 MB (Rec: 03/07/20 09:16 MB [id number]) Physical Therapy Assessment Evaluation Complexity Number of Personal Factors/Comorbidities 1-2 Number of Body Systems Impaired 1-2 Clinical Presentation at Evaluation Evolving Impairments Impairments Activity Tolerance,Balance, Edema,Functional Activities, Functional Mobility,Gait, Integument,Pain,Posture,ROM, Soft Tissue Mobility,Strength, Transfers Other Impairments Progressive MS, right ankle fusion, B LE cellulitis that is chronic with edema, history of falls Goals 9 [facility] Goal (LTG) Pt will be able to gait train 700' in 6 minutes with rollator and superv to improve community ambulation by 2019. LTG Duration 8 weeks 6 [facility] Goal (LTG) Pt will deny falls for 8 weeks by 04/16/2020. 02/15/2020: Pt denies falls since starting this course of PT. LTG Duration 8 weeks 5 [employer] Goal (LTG) Pt will perform progressive HEP with I to improve LE strength, gait, balance and tranfers by 04/16/2020. 02/15/2020: Pt is performing some exercises most days. LTG Duration 8 weeks Four [facility] Goal (LTG) Pt will gait train 25' with cane and superv to meet pt personal goal by 04/16/2020. 02/15/2020: Pt is walking some in the house with the cane, she does not bring cane in for progress note today. LTG Duration 8 weeks 3 [facility] Goal (LTG) Pt will present with improved TUG score to 15 sec to improve gait speed by 04/16/2020. 02/15/2020: Pt is able to perform TUG in 25 seconds today. LTG Duration 8 weeks 2 [employer] Goal (LTG) Pt will perform 5 reps sit to stand without UE support in 30 sec to improve functional strength with transfers by 04/16/2020. 02/15/2020: Pt is able to perform 5 reps sit to molder pipe covering 30 sec with right UE asst today LTG Duration 8 weeks Assessment Summary Assessment Initiated neuromuscular re-ed PNF today B LEs in sidelying to assist with pelvic and LE coordination and LE strength. Pt with B weakness and decreased hip movement on the left d/t adductor tension. Physical Therapy Plan Frequency and Duration Frequency of Treatment 2x/Week Duration of Treatment 8 weeks Plan of Care Start Date 02/15/20 Plan of Care End Date 04/16/20 Therapeutic Interventions Therapeutic Interventions Aquatic Therapy,Balance Training,Canalithic Repositioning,Coordination Training,Gait Training,Home Exercise Program,Lymphedema Management,Neuromuscular Re- education,Orthotic/Prosthetic Management,Patient/Caregiver Education,Self-Care/Home Management,Therapeutic Activities,Therapeutic Exercises Modalities Cold Pack/Ice Massage,Electric Stimulation,Hot Packs, Ultrasound Next Visit Focus/Plan Next Note Type Treatment Note Next Visit Plan Ongoing neuromuscular re-ed and PNF with PT support to help left hip. Further hip ROM exercises, hook lying with ball. Provide further training about back care as needed, flexibility and core work. Ongoing work with large reach and hands to help with weight shift, posture and no hands for sit to stand, gait training
--- NOTE | 2020-03-14 09:42 | PT.OTN ---
Current Diagnoses Multiple sclerosis (03/14/20) Physical Therapy Treatment Note PT-OP-A Visit Information Start: 01/09/20 07:21 Freq: Status: Active Protocol: Document 03/14/20 09:02 MB (Rec: 03/14/20 09:41 MB [id number]) Out-Patient Physical Therapy Visit Information Visit Information Visit Type Treatment Note Visit Start Time 09:02 Visit Stop Time 09:42 Total Visit Minutes 40 Visit Number 17 PT-OP-B Current Condition Start: 01/09/20 07:21 Freq: Status: Active Protocol: Document 01/09/20 08:17 MB (Rec: 01/09/20 08:25 MB [id number]) Current Condition History of Current Condition Onset Date August or September 2019 Current Complaints Inability to walk with cane History of Current Condition Pt has a long history of MS and progressive weakness. She made gains with PT last year. She progressed to pool therapy . When the pool closed, she got more deconditioned. Her balance isn't quite there. She feels like she can't trust her left leg. Pt had a fall on 10/19/2019 and hit her head. She went to ED and CT head/brain was negative for acute changes. She can now get herself up when she goes down. She has had 1 fall /month since July 2019. The falls have been in the yard when she is getting tired. She denies light-headedness and dizziness. She is drinking some water. She reports 3/10 pain in her back, neck and left wrist. Treatment Goals Patient/Caregiver Goals To walk with cane. PT-OP-C Subjective Start: 01/09/20 07:21 Freq: Status: Active Protocol: Document 03/14/20 09:02 MB (Rec: 03/14/20 09:41 MB [id number]) OP-PT Subjective Patient Comments Patient Comments I'm sorry I cancelled on Thursday. I worked out in the yard on Thursday and didn't sleep well Thursday night and I was worn out on Thursday. PT-OP-D Balance Start: 01/09/20 07:21 Freq: Status: Active Protocol: Document 01/09/20 08:17 MB (Rec: 01/09/20 12:31 MB [id number]) OP-PT Balance Assessment Sitting Balance Static Sitting Balance Ability Normal Dynamic Sitting Balance Ability Good Sitting Balance Comments UE support for all dynamic sitting Standing Balance Static Standing Balance Ability Fair Dynamic Standing Balance Ability Poor Device Used Rollator Standing Balance Comments Pt is very uncertain with static standing with rollator. She states that she either has to stand on her left toes with right leg locked in extension or stand on her right foot and lock her left leg in extension. She can statically 21 sec. She needs rollator support for all dynamic balance in standing. Balance Tests Other Other Balance Tests Performed TUG 30 sec Morgan Fall Scale Copyright Permission PT-OP-G Mobility & Gait Start: 01/09/20 07:21 Freq: Status: Active Protocol: Document 01/09/20 08:17 MB (Rec: 01/09/20 12:31 MB [id number]) OP Mobility Evaluation Transfers Sit to Stand Pt cannot perform a sit to stand without UE support. OP Gait Assessment Comments Gait Comments Pt presents with gait 75'x2 with rollator and right knee valgus. She tends to walk on her left toes d/t leg length difference. Her gait mildly improves when she takes custom orthotic out of right shoe while keeping left one in. Occ poor foot clearance B, poor step-through and even tiffany. PT-OP-M Strength Start: 01/09/20 07:21 Freq: Status: Active Protocol: Document 01/09/20 08:17 MB (Rec: 01/09/20 12:31 MB [id number]) Hip Strength Hip Manual Muscle Testing Left Flexion (L2) 2- Poor- Comments Sitting in chair Right Flexion (L2) 3- Fair- Comments Sitting in chair Knee Strength Knee Manual Muscle Testing Left Flexion (S2) 4 Good Extension (L3) 4 Good Right Flexion (S2) 4 Good Extension (L3) 5 Normal Ankle/Foot Strength Ankle and Foot Manual Muscle Testing Left Dorsiflexion (L4) 4 Good Inversion 4 Good Eversion (S1) 4 Good Comments Left toe extension 4/5 Right Comments Right ankle fusion and grossly 5 deg of DF with eversion component, MMT deferred in setting of fusion PT-OP-Q Treatments Start: 01/09/20 07:21 Freq: Status: Active Protocol: Document 03/14/20 09:02 MB (Rec: 03/14/20 09:41 MB [id number]) Cardio Equipment Recumbent Elliptical ([employer]) Duration (Minutes) 12 Resistance 5 Therapeutic Exercises Supine Exercises Core progression in hook lying Supine Exercise Name HS, mini lumbar rotation, knee drop out, mini march Reps/Minutes 5-10 reps all Comments Asst with controlled knee drop out Pelvic tilt and abdominal drawing in Comments Performed as set position before all exercises Lumbar rotation Comments Ball between knees, cues to slow down Pelvic realignment exercises Side bilateral Comments 5 reps with 3 sec hold, pt with fatigue after/SOB PT-OP-T Assessment and Plan Start: 01/09/20 07:21 Freq: Status: Active Protocol: Document 03/14/20 09:02 MB (Rec: 03/14/20 09:41 MB [id number]) Physical Therapy Assessment Evaluation Complexity Number of Personal Factors/Comorbidities 1-2 Number of Body Systems Impaired 1-2 Clinical Presentation at Evaluation Evolving Impairments Impairments Activity Tolerance,Balance, Edema,Functional Activities, Functional Mobility,Gait, Integument,Pain,Posture,ROM, Soft Tissue Mobility,Strength, Transfers Other Impairments Progressive MS, right ankle fusion, B LE cellulitis that is chronic with edema, history of falls Goals 9 [facility] Goal (LTG) Pt will be able to gait train 700' in 6 minutes with rollator and superv to improve community ambulation by 2019. LTG Duration 8 weeks 6 [facility] Goal (LTG) Pt will deny falls for 8 weeks by 04/16/2020. 02/15/2020: Pt denies falls since starting this course of PT. LTG Duration 8 weeks 5 De[employer] Goal (LTG) Pt will perform progressive HEP with I to improve LE strength, gait, balance and tranfers by 04/16/2020. 02/15/2020: Pt is performing some exercises most days. LTG Duration 8 weeks Four [facility] Goal (LTG) Pt will gait train 25' with cane and superv to meet pt personal goal by 04/16/2020. 02/15/2020: Pt is walking some in the house with the cane, she does not bring cane in for progress note today. LTG Duration 8 weeks 3 De[employer] Goal (LTG) Pt will present with improved TUG score to 15 sec to improve gait speed by 04/16/2020. 02/15/2020: Pt is able to perform TUG in 25 seconds today. LTG Duration 8 weeks 2 [facility] Goal (LTG) Pt will perform 5 reps sit to stand without UE support in 30 sec to improve functional strength with transfers by 04/16/2020. 02/15/2020: Pt is able to perform 5 reps sit to operator prefinish 30 sec with right UE asst today LTG Duration 8 weeks Assessment Summary Assessment Pt was sore after PNF and states that her right leg has wanting to give out on her some. This happened twice last week. 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 Reviewed exercises for home and for core today and pt con' t to require assist for left LE for bed mobility and exercises in hook lying. Physical Therapy Plan Frequency and Duration Frequency of Treatment 2x/Week Duration of Treatment 8 weeks Plan of Care Start Date 02/15/20 Plan of Care End Date 04/16/20 Therapeutic Interventions Therapeutic Interventions Aquatic Therapy,Balance Training,Canalithic Repositioning,Coordination Training,Gait Training,Home Exercise Program,Lymphedema Management,Neuromuscular Re- education,Orthotic/Prosthetic Management,Patient/Caregiver Education,Self-Care/Home Management,Therapeutic Activities,Therapeutic Exercises Modalities Cold Pack/Ice Massage,Electric Stimulation,Hot Packs, Ultrasound Next Visit Focus/Plan Next Note Type Treatment Note Next Visit Plan Ongoing neuromuscular re-ed and PNF with PT support to help left hip. Further hip ROM exercises, hook lying with ball. Provide further training about back care as needed, flexibility and core work. Ongoing work with large reach and hands to help with weight shift, posture and no hands for sit to stand, gait training
--- NOTE | 2020-03-21 09:34 | PT.OTN ---
Current Diagnoses Multiple sclerosis (03/21/20) Physical Therapy Treatment Note PT-OP-A Visit Information Start: 01/09/20 07:21 Freq: Status: Active Protocol: Document 03/21/20 08:52 MB (Rec: 03/21/20 09:34 MB [id number]) Out-Patient Physical Therapy Visit Information Visit Information Visit Type Treatment Note Visit Start Time 08:52 Visit Stop Time 09:33 Total Visit Minutes 41 Visit Number 18 PT-OP-B Current Condition Start: 01/09/20 07:21 Freq: Status: Active Protocol: Document 01/09/20 08:17 MB (Rec: 01/09/20 08:25 MB [id number]) Current Condition History of Current Condition Onset Date August or September 2019 Current Complaints Inability to walk with cane History of Current Condition Pt has a long history of MS and progressive weakness. She made gains with PT last year. She progressed to pool therapy . When the pool closed, she got more deconditioned. Her balance isn't quite there. She feels like she can't trust her left leg. Pt had a fall on 10/19/2019 and hit her head. She went to ED and CT head/brain was negative for acute changes. She can now get herself up when she goes down. She has had 1 fall /month since July 2019. The falls have been in the yard when she is getting tired. She denies light-headedness and dizziness. She is drinking some water. She reports 3/10 pain in her back, neck and left wrist. Treatment Goals Patient/Caregiver Goals To walk with cane. 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 Pt reports her right knee is doing better and her back is there. PT-OP-D Balance Start: 01/09/20 07:21 Freq: Status: Active Protocol: Document 01/09/20 08:17 MB (Rec: 01/09/20 12:31 MB [id number]) OP-PT Balance Assessment Sitting Balance Static Sitting Balance Ability Normal Dynamic Sitting Balance Ability Good Sitting Balance Comments UE support for all dynamic sitting Standing Balance Static Standing Balance Ability Fair Dynamic Standing Balance Ability Poor Device Used Rollator Standing Balance Comments Pt is very uncertain with static standing with rollator. She states that she either has to stand on her left toes with right leg locked in extension or stand on her right foot and lock her left leg in extension. She can statically 21 sec. She needs rollator support for all dynamic balance in standing. Balance Tests Other Other Balance Tests Performed TUG 30 sec Morgan Fall Scale Copyright Permission PT-OP-G Mobility & Gait Start: 01/09/20 07:21 Freq: Status: Active Protocol: Document 01/09/20 08:17 MB (Rec: 01/09/20 12:31 MB [id number]) OP Mobility Evaluation Transfers Sit to Stand Pt cannot perform a sit to stand without UE support. OP Gait Assessment Comments Gait Comments Pt presents with gait 75'x2 with rollator and right knee valgus. She tends to walk on her left toes d/t leg length difference. Her gait mildly improves when she takes custom orthotic out of right shoe while keeping left one in. Occ poor foot clearance B, poor step-through and even tiffany. PT-OP-M Strength Start: 01/09/20 07:21 Freq: Status: Active Protocol: Document 01/09/20 08:17 MB (Rec: 01/09/20 12:31 MB [id number]) Hip Strength Hip Manual Muscle Testing Left Flexion (L2) 2- Poor- Comments Sitting in chair Right Flexion (L2) 3- Fair- Comments Sitting in chair Knee Strength Knee Manual Muscle Testing Left Flexion (S2) 4 Good Extension (L3) 4 Good Right Flexion (S2) 4 Good Extension (L3) 5 Normal Ankle/Foot Strength Ankle and Foot Manual Muscle Testing Left Dorsiflexion (L4) 4 Good Inversion 4 Good Eversion (S1) 4 Good Comments Left toe extension 4/5 Right Comments Right ankle fusion and grossly 5 deg of DF with eversion component, MMT deferred in setting of fusion PT-OP-Q Treatments Start: 01/09/20 07:21 Freq: Status: Active Protocol: Document 03/21/20 08:52 MB (Rec: 03/21/20 09:34 MB [id number]) Cardio Equipment Recumbent Elliptical ([employer]) Duration (Minutes) 10 Resistance 5 Therapeutic Exercises Sitting Exercises sit to stand Comments 30 sec with UE support; 7 reps , 8 reps, 9 reps (29 sec) Gait Training Gait Activity // bar gait Device Used // bars Level of Assistance Superv Distance/Duration 15' with breaks Comments Good speed, significant leg length difference with right leg longer and increased right knee valgus and pt occ walking on left tip toes. Side stepping B with // bar use, forward and backwards walking; hurdles with // bar UE support: 6 reps x2 with pt taking one step, alternating between four hurdles PT-OP-T Assessment and Plan Start: 01/09/20 07:21 Freq: Status: Active Protocol: Document 03/21/20 08:52 MB (Rec: 03/21/20 09:34 MB [id number]) Physical Therapy Assessment Evaluation Complexity Number of Personal Factors/Comorbidities 1-2 Number of Body Systems Impaired 1-2 Clinical Presentation at Evaluation Evolving Impairments Impairments Activity Tolerance,Balance, Edema,Functional Activities, Functional Mobility,Gait, Integument,Pain,Posture,ROM, Soft Tissue Mobility,Strength, Transfers Other Impairments Progressive MS, right ankle fusion, B LE cellulitis that is chronic with edema, history of falls Goals 9 [facility] Goal (LTG) Pt will be able to gait train 700' in 6 minutes with rollator and superv to improve community ambulation by 2019. LTG Duration 8 weeks 6 [facility] Goal (LTG) Pt will deny falls for 8 weeks by 04/16/2020. 02/15/2020: Pt denies falls since starting this course of PT. LTG Duration 8 weeks 5 [facility] Goal (LTG) Pt will perform progressive HEP with I to improve LE strength, gait, balance and tranfers by 04/16/2020. 02/15/2020: Pt is performing some exercises most days. LTG Duration 8 weeks Four [employer] Consultant Goal (LTG) Pt will gait train 25' with cane and superv to meet pt personal goal by 04/16/2020. 02/15/2020: Pt is walking some in the house with the cane, she does not bring cane in for progress note today. LTG Duration 8 weeks 3 [employer] Goal (LTG) Pt will present with improved TUG score to 15 sec to improve gait speed by 04/16/2020. 02/15/2020: Pt is able to perform TUG in 25 seconds today. LTG Duration 8 weeks 2 [employer] Hygiene Consultant Goal (LTG) Pt will perform 5 reps sit to stand without UE support in 30 sec to improve functional strength with transfers by 04/16/2020. 02/15/2020: Pt is able to perform 5 reps sit to tool polishing machine operator 30 sec with right UE asst today LTG Duration 8 weeks Assessment Summary Assessment Exercise, sit to stands and gait training today and pt does well. She fatigues quickly and requires rest breaks. Physical Therapy Plan Frequency and Duration Frequency of Treatment 2x/Week Duration of Treatment 8 weeks Plan of Care Start Date 02/15/20 Plan of Care End Date 04/16/20 Therapeutic Interventions Therapeutic Interventions Aquatic Therapy,Balance Training,Canalithic Repositioning,Coordination Training,Gait Training,Home Exercise Program,Lymphedema Management,Neuromuscular Re- education,Orthotic/Prosthetic Management,Patient/Caregiver Education,Self-Care/Home Management,Therapeutic Activities,Therapeutic Exercises Modalities Cold Pack/Ice Massage,Electric Stimulation,Hot Packs, Ultrasound Next Visit Focus/Plan Next Note Type Treatment Note Next Visit Plan Progress gait activities. Ongoing neuromuscular re-ed and PNF with PT support to help left hip. Further hip ROM exercises, hook lying with ball. Provide further training about back care as needed, flexibility and core work. Ongoing work with large reach.
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
--- NOTE | 2020-04-04 09:45 | PT.OTN ---
Current Diagnoses Multiple sclerosis (04/04/20) Physical Therapy Treatment Note PT-OP-A Visit Information Start: 01/09/20 07:21 Freq: Status: Active Protocol: Document 04/04/20 09:02 MB (Rec: 04/04/20 09:45 MB [id number]) Out-Patient Physical Therapy Visit Information Visit Information Visit Type Progress Note Visit Start Time 09:02 Visit Stop Time 09:45 Total Visit Minutes 43 Visit Number 20 PT-OP-B Current Condition Start: 01/09/20 07:21 Freq: Status: Active Protocol: Document 01/09/20 08:17 MB (Rec: 01/09/20 08:25 MB [id number]) Current Condition History of Current Condition Onset Date August or September 2019 Current Complaints Inability to walk with cane History of Current Condition Pt has a long history of MS and progressive weakness. She made gains with PT last year. She progressed to pool therapy . When the pool closed, she got more deconditioned. Her balance isn't quite there. She feels like she can't trust her left leg. Pt had a fall on 10/19/2019 and hit her head. She went to ED and CT head/brain was negative for acute changes. She can now get herself up when she goes down. She has had 1 fall /month since July 2019. The falls have been in the yard when she is getting tired. She denies light-headedness and dizziness. She is drinking some water. She reports 3/10 pain in her back, neck and left wrist. Treatment Goals Patient/Caregiver Goals To walk with cane. PT-OP-C Subjective Start: 01/09/20 07:21 Freq: Status: Active Protocol: Document 04/04/20 09:02 MB (Rec: 04/04/20 09:45 MB [id number]) OP-PT Subjective Patient Comments Patient Comments I think I'm doing okay, when PT asks pt how she thinks she is doing with PT. PT-OP-D Balance Start: 01/09/20 07:21 Freq: Status: Active Protocol: Document 01/09/20 08:17 MB (Rec: 01/09/20 12:31 MB [id number]) OP-PT Balance Assessment Sitting Balance Static Sitting Balance Ability Normal Dynamic Sitting Balance Ability Good Sitting Balance Comments UE support for all dynamic sitting Standing Balance Static Standing Balance Ability Fair Dynamic Standing Balance Ability Poor Device Used Rollator Standing Balance Comments Pt is very uncertain with static standing with rollator. She states that she either has to stand on her left toes with right leg locked in extension or stand on her right foot and lock her left leg in extension. She can statically 21 sec. She needs rollator support for all dynamic balance in standing. Balance Tests Other Other Balance Tests Performed TUG 30 sec Morgan Fall Scale Copyright Permission PT-OP-G Mobility & Gait Start: 01/09/20 07:21 Freq: Status: Active Protocol: Document 01/09/20 08:17 MB (Rec: 01/09/20 12:31 MB [id number]) OP Mobility Evaluation Transfers Sit to Stand Pt cannot perform a sit to stand without UE support. OP Gait Assessment Comments Gait Comments Pt presents with gait 75'x2 with rollator and right knee valgus. She tends to walk on her left toes d/t leg length difference. Her gait mildly improves when she takes custom orthotic out of right shoe while keeping left one in. Occ poor foot clearance B, poor step-through and even tiffany. PT-OP-M Strength Start: 01/09/20 07:21 Freq: Status: Active Protocol: Document 01/09/20 08:17 MB (Rec: 01/09/20 12:31 MB [id number]) Hip Strength Hip Manual Muscle Testing Left Flexion (L2) 2- Poor- Comments Sitting in chair Right Flexion (L2) 3- Fair- Comments Sitting in chair Knee Strength Knee Manual Muscle Testing Left Flexion (S2) 4 Good Extension (L3) 4 Good Right Flexion (S2) 4 Good Extension (L3) 5 Normal Ankle/Foot Strength Ankle and Foot Manual Muscle Testing Left Dorsiflexion (L4) 4 Good Inversion 4 Good Eversion (S1) 4 Good Comments Left toe extension 4/5 Right Comments Right ankle fusion and grossly 5 deg of DF with eversion component, MMT deferred in setting of fusion PT-OP-Q Treatments Start: 01/09/20 07:21 Freq: Status: Active Protocol: Document 04/04/20 09:02 MB (Rec: 04/04/20 09:45 MB [id number]) Cardio Equipment Recumbent Elliptical ([employer]) Duration (Minutes) 12 Resistance 5 Therapeutic Exercises Sitting Exercises sit to stand Comments 30 sec with UE support, 10 reps Gait Training Gait Activity 6MWT Comments 463 feet with rollator with one sitting rest break TUG Comments Pt makes two passes first attempt in 40 sec Second attempt: 17 sec 1 Description SPC right hand Comments 20' slowly and with stopping, superv PT-OP-T Assessment and Plan Start: 01/09/20 07:21 Freq: Status: Active Protocol: Document 04/04/20 09:02 MB (Rec: 04/04/20 09:45 MB [id number]) Physical Therapy Assessment Evaluation Complexity Number of Personal Factors/Comorbidities 1-2 Number of Body Systems Impaired 1-2 Clinical Presentation at Evaluation Evolving Impairments Impairments Activity Tolerance,Balance, Edema,Functional Activities, Functional Mobility,Gait, Integument,Pain,Posture,ROM, Soft Tissue Mobility,Strength, Transfers Other Impairments Progressive MS, right ankle fusion, B LE cellulitis that is chronic with edema, history of falls Goals 9 Retirement Goal (LTG) Pt will be able to gait train 500' in 6 minutes with rollator and superv to improve community ambulation by 2019. 04/04/2020: 463 feet with rollator in 6 minutes, one rest break LTG Duration 2 weeks 6 Retirement Goal (LTG) Pt will deny falls for 8 weeks by 04/16/2020. 04/04/2020: Pt had one fall slide OOB since reassessment LTG Duration 2 weeks 5 Extruder Operator Multiple Goal (LTG) Pt will perform progressive HEP with I to improve LE strength, gait, balance and tranfers by 04/16/2020. 04/04/2020: Pt is performing revised HEP most days LTG Duration 2 weeks Four Extruder Operator Multiple Goal (LTG) Pt will gait train 25' with cane and superv to meet pt personal goal by 04/16/2020. 04/04/2020: 20' with SPC with slow tiffany today, leg length difference is a problem (LLE shorter than the right) and she is supposed to get lift LTG Duration 2 weeks 3 Retirement Goal (LTG) Pt will present with improved TUG score to 15 sec to improve gait speed by 04/16/2020. 04/04/2020: 17 sec LTG Duration 2 weeks 2 Retirement Goal (LTG) Pt will perform 11 reps sit to stand with UE support in 30 sec to improve functional strength with transfers by 04/16/2020. 04/04/2020: Pt performs 10 reps sit to stand with UE support today LTG Duration 2 weeks Assessment Summary Assessment Pt has progressed towards the following PT goals since starting PT: performance of revised HEP, TUG, sit to stands, 6MWT and gait with cane. Set backs to PT have been heat in setting of progressive MS and asthma that has been exacerbated d/t smoke. Pt will benefit from completing last two PT appointments to progress strengthening. Anticipate d/c in two treatments and pt may benefit from further PT course in the future in setting of progressive neurodegenerative disease. Physical Therapy Plan Frequency and Duration Frequency of Treatment 2x/Week Duration of Treatment 8 weeks Plan of Care Start Date 04/04/20 Plan of Care End Date 04/16/20 Therapeutic Interventions Therapeutic Interventions Aquatic Therapy,Balance Training,Canalithic Repositioning,Coordination Training,Gait Training,Home Exercise Program,Lymphedema Management,Neuromuscular Re- education,Orthotic/Prosthetic Management,Patient/Caregiver Education,Self-Care/Home Management,Therapeutic Activities,Therapeutic Exercises Modalities Cold Pack/Ice Massage,Electric Stimulation,Hot Packs, Ultrasound Next Visit Focus/Plan Next Note Type Treatment Note Next Visit Plan Strengthening exercises with band for hips, knees and ankles in future treatment dates--sitting with band
--- NOTE | 2020-04-04 09:46 | PT.OPPOC ---
Physical, Occupational & Speech Therapy At [facility] Current Diagnoses Multiple sclerosis (04/04/20) Visit Care Team Role Provider Type James Perez MD Primary Care Provider Physician Specialty: Family Practice Address: [address] [place] [address], [id number] Email: [email or web address] Gabrielle Marinelli MD Attending Provider Non-Staff Referring Provider Specialty: Neurology Address: [address] [place] [address], [id number] Email: Plan Of Care PT-OP-T Assessment and Plan Start: 01/09/20 07:21 Freq: Status: Active Protocol: Document 04/04/20 09:02 MB (Rec: 04/04/20 09:45 MB [id number]) Physical Therapy Assessment Evaluation Complexity Number of Personal Factors/Comorbidities 1-2 Number of Body Systems Impaired 1-2 Clinical Presentation at Evaluation Evolving Impairments Impairments Activity Tolerance,Balance, Edema,Functional Activities, Functional Mobility,Gait, Integument,Pain,Posture,ROM, Soft Tissue Mobility,Strength, Transfers Other Impairments Progressive MS, right ankle fusion, B LE cellulitis that is chronic with edema, history of falls Goals 9 Skilled Nursing Goal (LTG) Pt will be able to gait train 500' in 6 minutes with rollator and superv to improve community ambulation by 2019. 04/04/2020: 463 feet with rollator in 6 minutes, one rest break LTG Duration 2 weeks 6 Field Coordinator Goal (LTG) Pt will deny falls for 8 weeks by 04/16/2020. 04/04/2020: Pt had one fall slide OOB since reassessment LTG Duration 2 weeks 5 Field Coordinator Goal (LTG) Pt will perform progressive HEP with I to improve LE strength, gait, balance and tranfers by 04/16/2020. 04/04/2020: Pt is performing revised HEP most days LTG Duration 2 weeks Four Skilled Nursing Goal (LTG) Pt will gait train 25' with cane and superv to meet pt personal goal by 04/16/2020. 04/04/2020: 20' with SPC with slow tiffany today, leg length difference is a problem (LLE shorter than the right) and she is supposed to get lift LTG Duration 2 weeks 3 Field Coordinator Goal (LTG) Pt will present with improved TUG score to 15 sec to improve gait speed by 04/16/2020. 04/04/2020: 17 sec LTG Duration 2 weeks 2 Field Coordinator Goal (LTG) Pt will perform 11 reps sit to stand with UE support in 30 sec to improve functional strength with transfers by 04/16/2020. 04/04/2020: Pt performs 10 reps sit to stand with UE support today LTG Duration 2 weeks Assessment Summary Assessment Pt has progressed towards the following PT goals since starting PT: performance of revised HEP, TUG, sit to stands, 6MWT and gait with cane. Set backs to PT have been heat in setting of progressive MS and asthma that has been exacerbated d/t smoke. Pt will benefit from completing last two PT appointments to progress strengthening. Anticipate d/c in two treatments and pt may benefit from further PT course in the future in setting of progressive neurodegenerative disease. Physical Therapy Plan Frequency and Duration Frequency of Treatment 2x/Week Duration of Treatment 8 weeks Plan of Care Start Date 04/04/20 Plan of Care End Date 04/16/20 Therapeutic Interventions Therapeutic Interventions Aquatic Therapy,Balance Training,Canalithic Repositioning,Coordination Training,Gait Training,Home Exercise Program,Lymphedema Management,Neuromuscular Re- education,Orthotic/Prosthetic Management,Patient/Caregiver Education,Self-Care/Home Management,Therapeutic Activities,Therapeutic Exercises Modalities Cold Pack/Ice Massage,Electric Stimulation,Hot Packs, Ultrasound Next Visit Focus/Plan Next Note Type Treatment Note Next Visit Plan Strengthening exercises with band for hips, knees and ankles in future treatment dates--sitting with band Plan of Care Dates Plan of Care Start Date 04/04/20 Plan of Care End Date 04/16/20 Electronically Signed by: Acacia Ordaz, PT 04/04/20 0903 Please Sign and Return: I have reviewed this Plan of Care and certify that the skilled therapy services above are required to meet the patient?s needs. Physician Signature Date Printed Name and Credentials Clinical Instructor Signature Printed Name and Credentials
--- NOTE | 2020-04-09 09:38 | PT.OTN ---
Current Diagnoses Multiple sclerosis (04/09/20) Physical Therapy Treatment Note PT-OP-A Visit Information Start: 01/09/20 07:21 Freq: Status: Active Protocol: Document 04/09/20 08:58 MB (Rec: 04/09/20 09:36 MB [id number]) Out-Patient Physical Therapy Visit Information Visit Information Visit Type Treatment Note Visit Start Time 08:58 Visit Stop Time 09:38 Total Visit Minutes 40 Visit Number 21 PT-OP-B Current Condition Start: 01/09/20 07:21 Freq: Status: Active Protocol: Document 01/09/20 08:17 MB (Rec: 01/09/20 08:25 MB [id number]) Current Condition History of Current Condition Onset Date August or September 2019 Current Complaints Inability to walk with cane History of Current Condition Pt has a long history of MS and progressive weakness. She made gains with PT last year. She progressed to pool therapy . When the pool closed, she got more deconditioned. Her balance isn't quite there. She feels like she can't trust her left leg. Pt had a fall on 10/19/2019 and hit her head. She went to ED and CT head/brain was negative for acute changes. She can now get herself up when she goes down. She has had 1 fall /month since July 2019. The falls have been in the yard when she is getting tired. She denies light-headedness and dizziness. She is drinking some water. She reports 3/10 pain in her back, neck and left wrist. Treatment Goals Patient/Caregiver Goals To walk with cane. PT-OP-C Subjective Start: 01/09/20 07:21 Freq: Status: Active Protocol: Document 04/09/20 08:58 MB (Rec: 04/09/20 09:36 MB [id number]) OP-PT Subjective Patient Comments Patient Comments I went to my daughter's for a constitution party this weekend and I walked up 13 steps. My daughter said, 'Wow, Mom, you' re doing a lot better with those steps.' Pt used rail and wall. PT-OP-D Balance Start: 01/09/20 07:21 Freq: Status: Active Protocol: Document 01/09/20 08:17 MB (Rec: 01/09/20 12:31 MB [id number]) OP-PT Balance Assessment Sitting Balance Static Sitting Balance Ability Normal Dynamic Sitting Balance Ability Good Sitting Balance Comments UE support for all dynamic sitting Standing Balance Static Standing Balance Ability Fair Dynamic Standing Balance Ability Poor Device Used Rollator Standing Balance Comments Pt is very uncertain with static standing with rollator. She states that she either has to stand on her left toes with right leg locked in extension or stand on her right foot and lock her left leg in extension. She can statically 21 sec. She needs rollator support for all dynamic balance in standing. Balance Tests Other Other Balance Tests Performed TUG 30 sec Morgan Fall Scale Copyright Permission PT-OP-G Mobility & Gait Start: 01/09/20 07:21 Freq: Status: Active Protocol: Document 01/09/20 08:17 MB (Rec: 01/09/20 12:31 MB [id number]) OP Mobility Evaluation Transfers Sit to Stand Pt cannot perform a sit to stand without UE support. OP Gait Assessment Comments Gait Comments Pt presents with gait 75'x2 with rollator and right knee valgus. She tends to walk on her left toes d/t leg length difference. Her gait mildly improves when she takes custom orthotic out of right shoe while keeping left one in. Occ poor foot clearance B, poor step-through and even tiffany. PT-OP-M Strength Start: 01/09/20 07:21 Freq: Status: Active Protocol: Document 01/09/20 08:17 MB (Rec: 01/09/20 12:31 MB [id number]) Hip Strength Hip Manual Muscle Testing Left Flexion (L2) 2- Poor- Comments Sitting in chair Right Flexion (L2) 3- Fair- Comments Sitting in chair Knee Strength Knee Manual Muscle Testing Left Flexion (S2) 4 Good Extension (L3) 4 Good Right Flexion (S2) 4 Good Extension (L3) 5 Normal Ankle/Foot Strength Ankle and Foot Manual Muscle Testing Left Dorsiflexion (L4) 4 Good Inversion 4 Good Eversion (S1) 4 Good Comments Left toe extension 4/5 Right Comments Right ankle fusion and grossly 5 deg of DF with eversion component, MMT deferred in setting of fusion PT-OP-Q Treatments Start: 01/09/20 07:21 Freq: Status: Active Protocol: Document 04/09/20 08:58 MB (Rec: 04/09/20 09:36 MB [id number]) Cardio Equipment Recumbent Elliptical ([employer]) Duration (Minutes) 12 Resistance 5 Therapeutic Exercises Sitting Exercises Thoracic rotation Side bilateral Comments 3 reps, 10 sec hold B QL stretches Side bilateral Comments 2 reps B, 10 sec hold Ankle eversion and DF Side bilateral Reps/Minutes 5 reps Comments Level 1 band, ankles on floor, slowly LAQ with band Side bilateral Reps/Minutes 5 reps Comments Alternating, level 1 band Clam with glute set and band Side bilateral Reps/Minutes 5 reps slowly Comments Feet together, level 1 band PT-OP-T Assessment and Plan Start: 01/09/20 07:21 Freq: Status: Active Protocol: Document 04/09/20 08:58 MB (Rec: 04/09/20 09:36 MB [id number]) Physical Therapy Assessment Evaluation Complexity Number of Personal Factors/Comorbidities 1-2 Number of Body Systems Impaired 1-2 Clinical Presentation at Evaluation Evolving Impairments Impairments Activity Tolerance,Balance, Edema,Functional Activities, Functional Mobility,Gait, Integument,Pain,Posture,ROM, Soft Tissue Mobility,Strength, Transfers Other Impairments Progressive MS, right ankle fusion, B LE cellulitis that is chronic with edema, history of falls Goals 9 Half-Way Goal (LTG) Pt will be able to gait train 500' in 6 minutes with rollator and superv to improve community ambulation by 2019. 04/04/2020: 463 feet with rollator in 6 minutes, one rest break LTG Duration 2 weeks 6 Lawn Care Professional Goal (LTG) Pt will deny falls for 8 weeks by 04/16/2020. 04/04/2020: Pt had one fall slide OOB since reassessment LTG Duration 2 weeks 5 Lawn Care Professional Goal (LTG) Pt will perform progressive HEP with I to improve LE strength, gait, balance and tranfers by 04/16/2020. 04/04/2020: Pt is performing revised HEP most days LTG Duration 2 weeks Four Half-Way Goal (LTG) Pt will gait train 25' with cane and superv to meet pt personal goal by 04/16/2020. 04/04/2020: 20' with SPC with slow tiffany today, leg length difference is a problem (LLE shorter than the right) and she is supposed to get lift LTG Duration 2 weeks 3 Half-Way Goal (LTG) Pt will present with improved TUG score to 15 sec to improve gait speed by 04/16/2020. 04/04/2020: 17 sec LTG Duration 2 weeks 2 Lawn Care Professional Goal (LTG) Pt will perform 11 reps sit to stand with UE support in 30 sec to improve functional strength with transfers by 04/16/2020. 04/04/2020: Pt performs 10 reps sit to stand with UE support today LTG Duration 2 weeks Assessment Summary Assessment Progressed sitting exercises for leg strengthening today. Anticipate d/c next treatment date. Pt may benefit from further PT course in the future in setting of progressive neurodegenerative disease. Physical Therapy Plan Frequency and Duration Frequency of Treatment 2x/Week Duration of Treatment 8 weeks Plan of Care Start Date 04/04/20 Plan of Care End Date 04/16/20 Therapeutic Interventions Therapeutic Interventions Aquatic Therapy,Balance Training,Canalithic Repositioning,Coordination Training,Gait Training,Home Exercise Program,Lymphedema Management,Neuromuscular Re- education,Orthotic/Prosthetic Management,Patient/Caregiver Education,Self-Care/Home Management,Therapeutic Activities,Therapeutic Exercises Modalities Cold Pack/Ice Massage,Electric Stimulation,Hot Packs, Ultrasound Next Visit Focus/Plan Next Note Type Discharge Summary Next Visit Plan Review any exercises as needed .
--- NOTE | 2020-04-11 09:40 | PT.OTN ---
Current Diagnoses Multiple sclerosis (04/11/20) Physical Therapy Treatment Note PT-OP-A Visit Information Start: 01/09/20 07:21 Freq: Status: Active Protocol: Document 04/11/20 09:02 MB (Rec: 04/11/20 09:39 MB [id number]) Out-Patient Physical Therapy Visit Information Visit Information Visit Type Discharge Summary Visit Start Time 09:02 Visit Stop Time 09:40 Total Visit Minutes 38 Visit Number 22 PT-OP-B Current Condition Start: 01/09/20 07:21 Freq: Status: Active Protocol: Document 01/09/20 08:17 MB (Rec: 01/09/20 08:25 MB [id number]) Current Condition History of Current Condition Onset Date August or September 2019 Current Complaints Inability to walk with cane History of Current Condition Pt has a long history of MS and progressive weakness. She made gains with PT last year. She progressed to pool therapy . When the pool closed, she got more deconditioned. Her balance isn't quite there. She feels like she can't trust her left leg. Pt had a fall on 10/19/2019 and hit her head. She went to ED and CT head/brain was negative for acute changes. She can now get herself up when she goes down. She has had 1 fall /month since July 2019. The falls have been in the yard when she is getting tired. She denies light-headedness and dizziness. She is drinking some water. She reports 3/10 pain in her back, neck and left wrist. Treatment Goals Patient/Caregiver Goals To walk with cane. PT-OP-C Subjective Start: 01/09/20 07:21 Freq: Status: Active Protocol: Document 04/11/20 09:02 MB (Rec: 04/11/20 09:39 MB [id number]) OP-PT Subjective Patient Comments Patient Comments They weren't there when PT asks pt if she went by the place to get her lift shoe. PT-OP-D Balance Start: 01/09/20 07:21 Freq: Status: Active Protocol: Document 01/09/20 08:17 MB (Rec: 01/09/20 12:31 MB [id number]) OP-PT Balance Assessment Sitting Balance Static Sitting Balance Ability Normal Dynamic Sitting Balance Ability Good Sitting Balance Comments UE support for all dynamic sitting Standing Balance Static Standing Balance Ability Fair Dynamic Standing Balance Ability Poor Device Used Rollator Standing Balance Comments Pt is very uncertain with static standing with rollator. She states that she either has to stand on her left toes with right leg locked in extension or stand on her right foot and lock her left leg in extension. She can statically 21 sec. She needs rollator support for all dynamic balance in standing. Balance Tests Other Other Balance Tests Performed TUG 30 sec Morgan Fall Scale Copyright Permission PT-OP-G Mobility & Gait Start: 01/09/20 07:21 Freq: Status: Active Protocol: Document 01/09/20 08:17 MB (Rec: 01/09/20 12:31 MB [id number]) OP Mobility Evaluation Transfers Sit to Stand Pt cannot perform a sit to stand without UE support. OP Gait Assessment Comments Gait Comments Pt presents with gait 75'x2 with rollator and right knee valgus. She tends to walk on her left toes d/t leg length difference. Her gait mildly improves when she takes custom orthotic out of right shoe while keeping left one in. Occ poor foot clearance B, poor step-through and even tiffany. PT-OP-M Strength Start: 01/09/20 07:21 Freq: Status: Active Protocol: Document 01/09/20 08:17 MB (Rec: 01/09/20 12:31 MB [id number]) Hip Strength Hip Manual Muscle Testing Left Flexion (L2) 2- Poor- Comments Sitting in chair Right Flexion (L2) 3- Fair- Comments Sitting in chair Knee Strength Knee Manual Muscle Testing Left Flexion (S2) 4 Good Extension (L3) 4 Good Right Flexion (S2) 4 Good Extension (L3) 5 Normal Ankle/Foot Strength Ankle and Foot Manual Muscle Testing Left Dorsiflexion (L4) 4 Good Inversion 4 Good Eversion (S1) 4 Good Comments Left toe extension 4/5 Right Comments Right ankle fusion and grossly 5 deg of DF with eversion component, MMT deferred in setting of fusion PT-OP-Q Treatments Start: 01/09/20 07:21 Freq: Status: Active Protocol: Document 04/11/20 09:02 MB (Rec: 04/11/20 09:39 MB [id number]) Cardio Equipment Recumbent Elliptical ([employer]) Duration (Minutes) 10 Resistance 5 Therapeutic Exercises Sitting Exercises sit to stand Comments 10 reps with UE support in 30 sec today Gait Training Gait Activity 6MWT Comments 545 ft with rollator, without rest break today. Improvement since last assessed one week ago. Other gait training today with rollator and cues for posture TUG Comments TUG with chair with arms, as previous treatments, pt uses rollator: 16 sec and then 13 sec PT-OP-T Assessment and Plan Start: 01/09/20 07:21 Freq: Status: Active Protocol: Document 04/11/20 09:02 MB (Rec: 04/11/20 09:39 MB [id number]) Physical Therapy Assessment Evaluation Complexity Number of Personal Factors/Comorbidities 1-2 Number of Body Systems Impaired 1-2 Clinical Presentation at Evaluation Evolving Impairments Impairments Activity Tolerance,Balance, Edema,Functional Activities, Functional Mobility,Gait, Integument,Pain,Posture,ROM, Soft Tissue Mobility,Strength, Transfers Other Impairments Progressive MS, right ankle fusion, B LE cellulitis that is chronic with edema, history of falls Goals 9 Fixing Machine Operator Goal (LTG) Pt will be able to gait train 500' in 6 minutes with rollator and superv to improve community ambulation by 2019. 04/11/2020: Pt gait trains without break today over 6 minutes and it able to gait train 545 ft LTG Duration 2 weeks 6 Fixing Machine Operator Goal (LTG) Pt will deny falls for 8 weeks by 04/16/2020. 04/11/2020: Pt has had no falls since reassessment LTG Duration 2 weeks 5 Fixing Machine Operator Goal (LTG) Pt will perform progressive HEP with I to improve LE strength, gait, balance and tranfers by 04/16/2020. 04/11/2020: Pt is performing revised HEP most days LTG Duration 2 weeks Four Intermediate Goal (LTG) Pt will gait train 25' with cane and superv to meet pt personal goal by 04/16/2020. 04/11/2020: Pt does not bring cane into clinic today LTG Duration 2 weeks 3 Intermediate Goal (LTG) Pt will present with improved TUG score to 15 sec to improve gait speed by 04/16/2020. 04/11/2020: 16 sec and then 13 sec LTG Duration 2 weeks 2 Intermediate Goal (LTG) Pt will perform 11 reps sit to stand with UE support in 30 sec to improve functional strength with transfers by 04/16/2020. 04/11/2020: Pt performs 10 reps sit to stand with UE support today LTG Duration 2 weeks Assessment Summary Assessment Pt has progressed towards all PT goals since starting PT. These include performance of HEP, gait, TUG score, and sit to stands. Today, she surpasses 6MWT and TUG goals. She is awaiting getting shoe lift for her left foot and may benefit from PT in future as needed given this will change her leg length and gait, also she has progressive neurological disease. Currently, she has maximized PT potential and will d/c PT. Physical Therapy Plan Discharge Physical Therapy Discharge Reasons Goals Met
== END 2020-04-13 08:49 ==
LOC: PHYS 09:00
PROVIDERS: PCP Family Medicine; Referring Provider Psychiatry & Neurology Neurology; Visit Provider Psychiatry & Neurology Neurology
DX: G35 Multiple sclerosis (principal)
CPT/HCPCS: 97110; 97112; 97116; 97140; 97162

== ENCOUNTER → 2021-04-19 15:45 | Outpatient (CLI) | payer MEDICARE, OTHER, SELFPAY ==
[2019-01-10 13:18] VITALS: BMI 36.7
--- NOTE | 2021-04-19 15:47 | DI.MG.S_ITS ---
BILATERAL DIGITAL SCREENING MAMMOGRAM 3D/2D WITH CAD: 04/19/2021 CLINICAL: Routine screening. Comparison is made to exams dated: 12/29/2019 mammogram, 11/12/2017 mammogram, and 11/06/2016 mammogram - [facility]. There are scattered fibroglandular elements in both breasts. Current study was also evaluated with a Computer Aided Detection (CAD) system. No significant masses, calcifications, or other findings are seen in either breast. There has been no significant interval change. IMPRESSION: NEGATIVE There is no mammographic evidence of malignancy. A 1 year screening mammogram is recommended. This exam was interpreted at Station ID: [id number]. NOTE: For mammograms, a report in lay terms will be sent to the patient. Approximately 15% of breast malignancies will not be visualized mammographically. In the management of a palpable breast mass, a negative mammogram must not discourage biopsy of a clinically suspicious lesion. Electronically Signed By: Nicko [email or web address]:04/19/2021 16:23:06 letter sent: Normal Exam ACR BI-RADS Category 1: Negative [id number]
== END ==
PROVIDERS: PCP Family Medicine; Referring Provider Family Medicine; Visit Provider Family Medicine
DX: Z12.31 Encounter for screening mammogram for malignant neoplasm of breast (principal)
CPT/HCPCS: 77063; 77067

== ENCOUNTER → 2021-05-06 09:33 | Outpatient (CLI) | payer MEDICARE, OTHER, SELFPAY ==
[2019-01-10 13:18] VITALS: BMI 36.7
== END ==
PROVIDERS: PCP Family Medicine; Referring Provider Family Medicine; Visit Provider Family Medicine
DX: R19.7 Diarrhea, unspecified (principal)
CPT/HCPCS: 87045; 87177; 87899

== ENCOUNTER → 2021-05-07 12:16 | Outpatient (CLI) | payer MEDICARE, OTHER, SELFPAY ==
[2019-01-10 13:18] VITALS: BMI 36.7
[2021-05-07 14:31] LABS: Add Manual Diff / Slide Review NO; Basophils Absolute Auto 100 /uL (0-100); Eosinophils Absolute Auto 500 /uL (0-450); Eosinophils Percent Auto 6.4 % (2-4); Hematocrit 35.1 % (36-46); Hemoglobin 11.7 g/dL (12.0-16.0); Lymphocytes Absolute Auto 1700 /uL (1100-4500); Lymphocytes Percent Auto 20.9 % (25-40); Mean Corpuscular HGB Conc 33.4 % (30-36); Mean Corpuscular Hemoglobin 28.9 PG (26-34); Mean Corpuscular Volume 86.4 fL (80-100); Monocytes Absolute Auto 500 /uL (0-900); Monocytes Percent Auto 6.6 % (3-14); Neutrophils Absolute Auto 5300 /uL (1500-7000); Neutrophils Percent Auto 65.1 % (50-75); Platelet Count 316 X10^3/uL (150-400); Red Blood Cell Count 4.06 X10^6/uL (4.0-5.2); Red Cell Distribution Width 13.7 % (11.6-14.8); White Blood Cell Count 8.1 X10^3/uL (4.5-11.0)
[2021-05-07 14:58] LABS: Alanine Aminotransferase 11 IU/L (<35); Albumin 3.9 g/dL (3.5-5.0); Albumin Globulin Ratio 1.5 (1.0-2.8); Alkaline Phosphatase 79 U/L (38-126); Aspartate Aminotransferase 19 IU/L (14-36); BUN Creatinine Ratio 17.8 (6-22); Bilirubin Total 0.4 mg/dL (0.2-1.3); Blood Urea Nitrogen 38 mg/dL (7-17); Calcium 9.4 mg/dL (8.4-10.2); Carbon Dioxide 29 mmol/L (22-32); Chloride 100 mmol/L (98-107); Estimated Glomerular Filt Rate 22.4 mL/min (>60); Globulin 2.6 g/dL (1.7-4.1); Glucose 73 mg/dL (80-110); HEMOLYSIS < 15 (0-50); Sodium 141 mmol/L (137-145); Total Protein 6.5 g/dL (6.3-8.2)
== END ==
PROVIDERS: PCP Family Medicine; Referring Provider Physician Assistant; Visit Provider Physician Assistant
DX: R19.7 Diarrhea, unspecified (principal); D64.9 Anemia, unspecified
CPT/HCPCS: 36415; 80053; 85025

== ENCOUNTER → 2021-05-15 10:19 | Outpatient (CLI) | payer MEDICARE, OTHER, SELFPAY ==
[2019-01-10 13:18] VITALS: BMI 36.7
--- NOTE | 2021-05-15 10:21 | DI.US.S_ITS ---
PROCEDURE: US RENAL COMPLETE INDICATIONS: Elevated Creatinine (new) Hx of MS TECHNIQUE: Real-time scanning was performed of the kidneys and bladder, with image documentation. COMPARISON: None. FINDINGS: Kidneys: Kidneys are normal in size. Right kidney measures 10.2 cm long; left kidney measures 9.9 cm long. Right renal cortical thickness is 1.2 cm; left renal cortical thickness is 0.8 cm. No hydronephrosis or nephrolithiasis. No suspicious solid mass lesions. Bladder: Bladder is decompressed and therefore unremarkable. Miscellaneous: No free pelvic fluid. IMPRESSION: No hydronephrosis. Left renal cortical atrophy/scarring. Dictated by: Ray Banda M.D. on 05/15/2021 at 16:20 Approved by: Ray Banda M.D. on 05/15/2021 at 16:24
== END ==
PROVIDERS: PCP Family Medicine; Referring Provider Physician Assistant; Visit Provider Physician Assistant
DX: G35 Multiple sclerosis (principal); R19.7 Diarrhea, unspecified; R79.89 Other specified abnormal findings of blood chemistry
CPT/HCPCS: 76770

== ENCOUNTER → 2021-06-10 10:46 | Outpatient (CLI) | payer MEDICARE, OTHER, SELFPAY ==
[2019-01-10 13:18] VITALS: BMI 36.7
[2021-06-10 13:12] LABS: BUN Creatinine Ratio 19.7 (6-22); Blood Urea Nitrogen 24 mg/dL (7-17); Calcium 9.3 mg/dL (8.4-10.2); Carbon Dioxide 30 mmol/L (22-32); Chloride 97 mmol/L (98-107); Estimated Glomerular Filt Rate 42.6 mL/min (>60); Glucose 144 mg/dL (80-110); HEMOLYSIS < 15 (0-50); Potassium 3.9 mmol/L (3.4-5.1); Sodium 136 mmol/L (137-145)
== END ==
PROVIDERS: PCP Family Medicine; Referring Provider Physician Assistant; Visit Provider Physician Assistant
DX: R79.89 Other specified abnormal findings of blood chemistry (principal); I10 Essential (primary) hypertension
CPT/HCPCS: 36415; 80048

== ENCOUNTER → 2021-09-23 08:59 | Outpatient (CLI) | payer MEDICARE, OTHER, SELFPAY ==
[2019-01-10 13:18] VITALS: BMI 36.7
[2021-09-23 10:36] LABS: Hemoglobin A1C% w Est Avg Glu 5.6 % (4.0-6.0)
[2021-09-23 11:20] LABS: BUN Creatinine Ratio 23.9 (6-22); Blood Urea Nitrogen 28 mg/dL (7-17); Calcium 9.4 mg/dL (8.4-10.2); Carbon Dioxide 30 mmol/L (22-32); Chloride 106 mmol/L (98-107); Estimated Glomerular Filt Rate 44.6 mL/min (>60); Glucose 93 mg/dL (80-110); HEMOLYSIS < 15 (0-50); Potassium 3.8 mmol/L (3.4-5.1); Sodium 142 mmol/L (137-145)
== END ==
PROVIDERS: PCP Family Medicine; Referring Provider Physician Assistant; Visit Provider Physician Assistant
DX: R73.9 Hyperglycemia, unspecified (principal); I10 Essential (primary) hypertension
CPT/HCPCS: 36415; 80048; 83036

== ENCOUNTER → 2021-09-30 10:19 | Outpatient (CLI) | payer MEDICARE, OTHER, SELFPAY ==
[2021-09-30 10:00] VITALS: BMI 36.7
--- NOTE | 2021-09-30 10:20 | DI.RAD.S_ITS ---
PROCEDURE: XR HIP W PEL IF DONE LT 2V INDICATIONS: hip pain TECHNIQUE: AP pelvis with cross-table lateral view of the left hip. COMPARISON: Merged With [facility], CR, HIP 2V LEFT, 12/25/2009, 10:39. FINDINGS: Bones: Osseous destruction of the left femoral head with pseudo-surgical margin is new when compared to the remote prior exam from 2009. There is proximal and lateral subluxation of the femoral neck relative to the acetabulum. There is chronic remodeling of the superior acetabulum. Postsurgical changes are seen in the included lower lumbar spine. The right hip appears normal. Soft tissues: The visualized bowel gas pattern is normal. No suspicious soft tissue calcifications. Arterial vascular calcifications are noted. A surgical clip is seen projecting over the pelvis. IMPRESSION: 1. 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 There is superolateral subluxation of the proximal femur that is likely chronic, with chronic osseous remodeling of the left acetabulum. A chronic indolent infection or inflammatory arthropathy are felt to be less likely. 2. Postsurgical changes in the included lower lumbar spine. Dictated by: Nicko Gomes M.D. on 09/30/2021 at 9:53 Approved by: Nicko Gomes M.D. on 09/30/2021 at 10:14
== END ==
PROVIDERS: PCP Family Medicine; Referring Provider Family Medicine; Visit Provider Family Medicine
DX: M89.552 Osteolysis, left thigh (principal); S73.002A Unspecified subluxation of left hip, initial encounter; M25.552 Pain in left hip
CPT/HCPCS: 73502

== ENCOUNTER → 2021-10-09 10:24 | Outpatient (CLI) | payer MEDICARE, OTHER, SELFPAY ==
[2021-09-30 10:00] VITALS: BMI 36.7
[2021-10-09 11:26] LABS: Add Manual Diff / Slide Review NO; Basophils Absolute Auto 100 /uL (0-100); Basophils Percent Auto 0.6 % (0-2); Eosinophils Absolute Auto 200 /uL (0-450); Eosinophils Percent Auto 2.8 % (2-4); Hematocrit 32.9 % (36-46); Hemoglobin 11.2 g/dL (12.0-16.0); Lymphocytes Absolute Auto 1600 /uL (1100-4500); Lymphocytes Percent Auto 17.7 % (25-40); Mean Corpuscular HGB Conc 33.9 % (30-36); Mean Corpuscular Hemoglobin 28.8 PG (26-34); Mean Corpuscular Volume 84.9 fL (80-100); Monocytes Absolute Auto 600 /uL (0-900); Monocytes Percent Auto 6.8 % (3-14); Neutrophils Absolute Auto 6300 /uL (1500-7000); Neutrophils Percent Auto 72.1 % (50-75); Platelet Count 309 X10^3/uL (150-400); Red Blood Cell Count 3.88 X10^6/uL (4.0-5.2); Red Cell Distribution Width 14.2 % (11.6-14.8); White Blood Cell Count 8.8 X10^3/uL (4.5-11.0)
[2021-10-09 12:19] LABS: Erythrocyte Sedimentation Rate 17 MM/HR (0-20)
[2021-10-09 12:22] LABS: Alanine Aminotransferase 14 IU/L (<35); Albumin 3.9 g/dL (3.5-5.0); Albumin Globulin Ratio 1.4 (1.0-2.8); Alkaline Phosphatase 58 U/L (38-126); Aspartate Aminotransferase 23 IU/L (14-36); BUN Creatinine Ratio 19.6 (6-22); Bilirubin Total 0.4 mg/dL (0.2-1.3); Blood Urea Nitrogen 22 mg/dL (7-17); C-Reactive Protein Quant < 0.5 mg/dL (<1.0); Calcium 9.2 mg/dL (8.4-10.2); Carbon Dioxide 26 mmol/L (22-32); Chloride 103 mmol/L (98-107); Estimated Glomerular Filt Rate 46.9 mL/min (>60); Globulin 2.8 g/dL (1.7-4.1); Glucose 75 mg/dL (80-110); HEMOLYSIS < 15 (0-50); Potassium 3.9 mmol/L (3.4-5.1); Sodium 138 mmol/L (137-145); Total Protein 6.7 g/dL (6.3-8.2)
[2021-10-09 12:26] LABS: Rheumatoid Factor < 8.6 IU/mL (<12.0)
[2021-10-11 15:06] LABS: ANA Screen, IFA Negative (.)
== END ==
PROVIDERS: PCP Family Medicine; Referring Provider Orthopaedic Surgery; Visit Provider Orthopaedic Surgery
DX: M25.552 Pain in left hip (principal); M17.12 Unilateral primary osteoarthritis, left knee
CPT/HCPCS: 36415; 80053; 85025; 85651; 86038; 86140; 86430

== ENCOUNTER → 2021-10-17 12:49 | Outpatient (CLI) | payer MEDICARE, OTHER, SELFPAY ==
[2021-09-30 10:00] VITALS: BMI 36.7
--- NOTE | 2021-10-17 12:52 | DI.CT.S_ITS ---
PROCEDURE: CT LE LT W CON INDICATIONS: Pain in left hip TECHNIQUE: Noncontrast 3 mm axial sections acquired through the bony pelvis. Additional 3 mm axial sections acquired through the symptomatic hip joint, with coronal and sagittal reformats. COMPARISON: [facility], CR, XR HIP W PEL IF DONE LT 2V, 09/30/2021, 10:13. FINDINGS: Image quality: Excellent. Bones: There is chronic appearing osteolysis involving left femoral head. No acute fracture or dislocation. Similar osteolysis is also seen in adjacent left acetabulum with significant remodeling of the joint. Anterior and superior subluxation at left hip joint is noted. No cortical erosion or destruction is noted. No acute fracture or dislocation. No suspicious intraosseous lesion. Osteoarthritic changes are noted in right hip joint, symphysis pubis and bilateral sacroiliac joints. Postfusion changes in visualized lower lumbar spine is also seen. Soft tissues: There is moderate to large left hip joint fluid with thickened synovial lining. A few tiny calcifications are noted within joint space and may represent small loose bodies. No pelvic free fluid or free air. No abnormal bowel wall thickening. No gross pelvic or hip muscle abnormality is seen. IMPRESSION: 1. Significant osteolysis of left femoral head and adjacent left acetabulum with subluxation of left hip as described above. Extensive remodeling in left hip joint. No acute fracture or dislocation. No suspicious intraosseous lesion. Moderate to large left hip joint fluid with markedly thickened synovial lining. Constellation of finding is concerning for chronic infectious or inflammatory arthropathy versus neuropathic arthropathy. Consider aspiration of the left hip joint fluid for further analysis. 2. Osteoarthritic changes throughout rest of the bony pelvis. No acute fracture or dislocation. 3. No pelvic free fluid or free air. Dictated by: Cliff Boateng M.D. on 10/17/2021 at 15:21 Approved by: Cliff Boateng M.D. on 10/17/2021 at 15:26
== END ==
PROVIDERS: PCP Family Medicine; Referring Provider Orthopaedic Surgery; Visit Provider Orthopaedic Surgery
DX: S73.032A Other anterior subluxation of left hip, initial encounter (principal); M25.452 Effusion, left hip; M25.552 Pain in left hip; X58.XXXA Exposure to other specified factors, initial encounter; Z98.1 Arthrodesis status
CPT/HCPCS: 73700

== ENCOUNTER → 2021-12-30 15:02 | Outpatient (CLI) | payer MEDICARE, OTHER, SELFPAY ==
[2021-09-30 10:00] VITALS: BMI 36.7
[2021-12-30 17:29] LABS: BUN Creatinine Ratio 30.6 (6-22); Blood Urea Nitrogen 34 mg/dL (7-17); Calcium 8.7 mg/dL (8.4-10.2); Carbon Dioxide 28 mmol/L (22-32); Chloride 108 mmol/L (98-107); Estimated Glomerular Filt Rate 51 mL/min (>60); Glucose 101 mg/dL (80-110); HEMOLYSIS < 15 (0-50); Potassium 3.9 mmol/L (3.4-5.1); Sodium 143 mmol/L (137-145)
== END ==
PROVIDERS: PCP Family Medicine; Referring Provider Physician Assistant; Visit Provider Physician Assistant
DX: I10 Essential (primary) hypertension (principal); R73.9 Hyperglycemia, unspecified
CPT/HCPCS: 36415; 80048

== ENCOUNTER → 2022-06-19 11:55 | Outpatient (CLI) | payer MEDICARE, OTHER, SELFPAY ==
[2021-09-30 10:00] VITALS: BMI 36.7
--- NOTE | 2022-06-19 11:59 | DI.RAD.S_ITS ---
PROCEDURE: XR LUMBAR SPINE MIN 4V INDICATIONS: BACK PAIN TECHNIQUE: 5 views of the lumbar spine were acquired, including bilateral oblique views. COMPARISON: None. FINDINGS: There are 5 [id number] lumbar type vertebral bodies. Mild to moderate lumbar dextroscoliosis centered at L3. Postsurgical changes L3-L5 posterior fixation by means of bilateral rods and pedicle screws with interbody devices. No acute complicating hardware feature identified. No suspicious lytic or blastic osseous lesion. IMPRESSION: Postsurgical changes of L3-L5 posterior fixation without acute complicating hardware feature. Dictated by: James Angela M.D. on 06/19/2022 at 11:34 Approved by: James Angela M.D. on 06/19/2022 at 11:35
[2022-06-19 12:47] LABS: Add Manual Diff / Slide Review NO; Basophils Absolute Auto 0 /uL (0-100); Basophils Percent Auto 0.2 % (0-2); Eosinophils Absolute Auto 400 /uL (0-450); Eosinophils Percent Auto 4.2 % (2-4); Hematocrit 34.8 % (36-46); Hemoglobin 11.9 g/dL (12.0-16.0); Lymphocytes Absolute Auto 1800 /uL (1100-4500); Lymphocytes Percent Auto 21.4 % (25-40); Mean Corpuscular HGB Conc 34.2 % (30-36); Mean Corpuscular Hemoglobin 29.2 PG (26-34); Mean Corpuscular Volume 85.3 fL (80-100); Monocytes Absolute Auto 500 /uL (0-900); Monocytes Percent Auto 5.6 % (3-14); Neutrophils Absolute Auto 5700 /uL (1500-7000); Neutrophils Percent Auto 68.6 % (50-75); Platelet Count 305 X10^3/uL (150-400); Red Blood Cell Count 4.08 X10^6/uL (4.0-5.2); Red Cell Distribution Width 14.5 % (11.6-14.8); White Blood Cell Count 8.4 X10^3/uL (4.5-11.0)
[2022-06-19 13:15] LABS: HEMOLYSIS < 15 (0-50); Iron 58 ug/dL (37-170)
[2022-06-19 13:18] LABS: BUN Creatinine Ratio 33.9 (6-22); Blood Urea Nitrogen 37 mg/dL (7-17); Calcium 9.4 mg/dL (8.4-10.2); Carbon Dioxide 27 mmol/L (22-32); Chloride 106 mmol/L (98-107); Estimated Glomerular Filt Rate 51 mL/min (>60); Glucose 81 mg/dL (80-110); HEMOLYSIS < 15 (0-50); Sodium 143 mmol/L (137-145)
[2022-06-19 13:26] LABS: Percent Iron Saturation 21 % (15-50); Total Iron Binding Capacity 271 ug/dL (265-497); Transferrin 227 mg/dL (206-381)
[2022-06-19 13:50] LABS: Ferritin 45 ng/mL (11-264)
== END ==
PROVIDERS: PCP Family Medicine; Referring Provider Physician Assistant; Visit Provider Physician Assistant
DX: D64.9 Anemia, unspecified (principal); M48.061 Spinal stenosis, lumbar region without neurogenic claudication; M16.12 Unilateral primary osteoarthritis, left hip; I10 Essential (primary) hypertension; M41.9 Scoliosis, unspecified; Z98.1 Arthrodesis status
CPT/HCPCS: 36415; 72110; 80048; 82728; 83540; 83550; 85025

== ENCOUNTER → 2022-07-17 07:44 | Outpatient (CLI) | payer MEDICARE, OTHER, SELFPAY ==
[2021-09-30 10:00] VITALS: BMI 36.7
--- NOTE | 2022-07-17 | DI.MG.S_ITS ---
BILATERAL DIGITAL SCREENING MAMMOGRAM 3D/2D WITH CAD: 07/17/2022 CLINICAL: Routine screening. Comparison is made to exams dated: 04/19/2021 mammogram, 12/29/2019 mammogram, and 11/12/2017 mammogram - [facility]. There are scattered areas of fibroglandular density in both breasts (category b / 25%-50% glandular tissue). Current study was also evaluated with a Computer Aided Detection (CAD) system. No significant masses, calcifications, or other findings are seen in either breast. There has been no significant interval change. IMPRESSION: NEGATIVE There is no mammographic evidence of malignancy. A 1 year screening mammogram is recommended. Based on the Tyrer Cuzick model (a risk assessment model) the patient's lifetime risk is 1.3% and her 10 year risk is 0.0%. According to the ACR, ACS, and NCCN guidelines, an annual breast MRI exam along with mammogram is recommended if the patient's lifetime risk is 20% or greater. This exam was interpreted at Station ID: [id number]. NOTE: For mammograms, a report in lay terms will be sent to the patient. Approximately 15% of breast malignancies will not be visualized mammographically. In the management of a palpable breast mass, a negative mammogram must not discourage biopsy of a clinically suspicious lesion. Electronically Signed By: James Angela M.D., jr/[email or web address]:07/17/2022 11:37:31 letter sent: Normal Exam ACR BI-RADS Category 1: Negative [id number]
== END ==
PROVIDERS: PCP Family Medicine; Referring Provider Family Medicine; Visit Provider Family Medicine
DX: Z12.31 Encounter for screening mammogram for malignant neoplasm of breast (principal)
CPT/HCPCS: 77063; 77067

== ENCOUNTER → 2022-10-15 14:47 | Outpatient (CLI) | payer MEDICARE, OTHER, SELFPAY ==
[2021-09-30 10:00] VITALS: BMI 36.7
--- NOTE | 2022-10-15 14:50 | DI.RAD.S_ITS ---
PROCEDURE: XR WRIST LT MIN 3V INDICATIONS: Left wrist pain - suspect OA TECHNIQUE: 4 views of the wrist were acquired. COMPARISON: [facility], , WRIST MINIMUM 3 VIEWS RIGHT, 01/05/2014, 16:05. FINDINGS: Bones: 1st CMC joint space narrowing with associated osteophytosis. Scalloped, lucent lesion of the ulnar styloid without cortical destruction. Scaphoid view: Unremarkable Soft tissues: No suspicious soft tissue calcifications. IMPRESSION: Scalloped, lucent lesion of the ulnar styloid without cortical destruction. Margins favor benign etiology but if there is associated pain in this region, consider MRI with contrast for further characterization. 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 This is within normal limits for age. Dictated by: Eladio Pena M.D. on 10/15/2022 at 16:08 Approved by: Eladio Pena M.D. on 10/15/2022 at 16:09
--- NOTE | 2022-10-15 14:50 | DI.RAD.S_ITS ---
PROCEDURE: XR ELBOW LT MIN 3V INDICATIONS: Left elbow pain - possible OA vs epicondylitis TECHNIQUE: 3 views of the elbow were acquired. COMPARISON: None. FINDINGS: Bones: No fractures or dislocations. No suspicious bony lesions. Soft tissues: Mild elbow joint effusion. No suspicious soft tissue calcifications. IMPRESSION: Mild elbow joint effusion, without significant degenerative change or acute bony abnormality. Dictated by: Eladio Pena M.D. on 10/15/2022 at 16:07 Approved by: Eladio Pena M.D. on 10/15/2022 at 16:08
== END ==
PROVIDERS: PCP Family Medicine; Referring Provider Physician Assistant; Visit Provider Physician Assistant
DX: M25.422 Effusion, left elbow (principal); M18.12 Unilateral primary osteoarthritis of first carpometacarpal joint, left hand; M25.522 Pain in left elbow; M25.532 Pain in left wrist
CPT/HCPCS: 73080; 73110

== ENCOUNTER → 2023-02-24 12:09 | Outpatient (CLI) | payer MEDICARE, OTHER, SELFPAY ==
[2021-09-30 10:00] VITALS: BMI 36.7
--- NOTE | 2023-02-24 12:11 | DI.RAD.S_ITS ---
PROCEDURE: XR CHEST 2V INDICATIONS: cough spasms x 1 week, COVID 3 wks ago (mild) TECHNIQUE: 2 views of the chest were acquired. COMPARISON: [facility], KRISTIN, XR CHEST 1V, 08/19/2019, 16:03. [facility], KRISTIN, CHEST 1 VIEW, 06/12/2013, 7:32. FINDINGS: Surgical changes and devices: None. Lungs and pleura: Lungs are clear. No pleural effusions or pneumothorax. Peribronchial cuffing. Mediastinum: Mediastinal contours are normal. Heart size is normal. Annular calcification mitral valve. Bones and chest wall: No suspicious bony abnormalities. Soft tissues appear unremarkable. IMPRESSION: Peribronchial cuffing, typically indicating infectious or inflammatory bronchitis. Dictated by: Eladio Pena M.D. on 02/24/2023 at 12:47 Approved by: Eladio Pena M.D. on 02/24/2023 at 12:47
== END ==
PROVIDERS: PCP Family Medicine; Referring Provider Student in an Organized Health Care Education/Training Program; Visit Provider Student in an Organized Health Care Education/Training Program
DX: R05.8 Other specified cough (principal)
CPT/HCPCS: 71046

== ENCOUNTER → 2023-06-22 12:08 | Outpatient (CLI) | payer MEDICARE, OTHER, SELFPAY ==
[2021-09-30 10:00] VITALS: BMI 36.7
[2023-06-22 13:23] LABS: Add Manual Diff / Slide Review NO; Basophils Absolute Auto 100 /uL (0-100); Basophils Percent Auto 1.1 % (0-2); Eosinophils Absolute Auto 600 /uL (0-450); Eosinophils Percent Auto 8.7 % (2-4); Hematocrit 34.9 % (36-46); Hemoglobin 11.7 g/dL (12.0-16.0); Lymphocytes Absolute Auto 1400 /uL (1100-4500); Lymphocytes Percent Auto 20.3 % (25-40); Mean Corpuscular HGB Conc 33.5 % (30-36); Mean Corpuscular Hemoglobin 29.3 PG (26-34); Mean Corpuscular Volume 87.4 fL (80-100); Monocytes Absolute Auto 500 /uL (0-900); Monocytes Percent Auto 7.2 % (3-14); Neutrophils Absolute Auto 4300 /uL (1500-7000); Neutrophils Percent Auto 62.7 % (50-75); Platelet Count 244 X10^3/uL (150-400); White Blood Cell Count 6.9 X10^3/uL (4.5-11.0)
[2023-06-22 13:52] LABS: HEMOLYSIS < 15 (0-50); Iron 81 ug/dL (37-170)
[2023-06-22 13:55] LABS: Alanine Aminotransferase 15 IU/L (<35); Albumin 3.7 g/dL (3.5-5.0); Albumin Globulin Ratio 1.3 (1.0-2.8); Alkaline Phosphatase 64 U/L (38-126); Aspartate Aminotransferase 22 IU/L (14-36); Bilirubin Total 0.5 mg/dL (0.2-1.3); Blood Urea Nitrogen 46 mg/dL (7-17); Calcium 9.6 mg/dL (8.4-10.2); Carbon Dioxide 29 mmol/L (22-32); Chloride 104 mmol/L (98-107); Estimated Glomerular Filt Rate 45 mL/min (>60); Globulin 2.9 g/dL (1.7-4.1); Glucose 81 mg/dL (80-110); HEMOLYSIS < 15 (0-50); Potassium 3.9 mmol/L (3.4-5.1); Sodium 140 mmol/L (137-145); Total Protein 6.6 g/dL (6.3-8.2)
[2023-06-22 14:03] LABS: Percent Iron Saturation 31 % (15-50); Total Iron Binding Capacity 258 ug/dL (265-497); Transferrin 223 mg/dL (206-381)
[2023-06-22 14:41] LABS: Vitamin B12 456 pg/mL (239-931)
== END ==
PROVIDERS: PCP Family Medicine; Referring Provider Family Medicine; Visit Provider Family Medicine
DX: R33.9 Retention of urine, unspecified (principal); D64.9 Anemia, unspecified; R60.9 Edema, unspecified
CPT/HCPCS: 36415; 80053; 82607; 83540; 83550; 85025

== ENCOUNTER → 2023-08-31 13:57 | Outpatient (CLI) | payer MEDICARE, OTHER, SELFPAY ==
[2021-09-30 10:00] VITALS: BMI 36.7
--- NOTE | 2023-08-31 | DI.MG.S_ITS ---
BILATERAL DIGITAL SCREENING MAMMOGRAM 3D/2D WITH CAD: 08/31/2023 CLINICAL: Routine screening. Comparison is made to exams dated: 07/17/2022 mammogram, 04/19/2021 mammogram, and 12/29/2019 mammogram - [facility]. There are scattered areas of fibroglandular density in both breasts (category b / 25%-50% glandular tissue). Current study was also evaluated with a Computer Aided Detection (CAD) system. There are benign post operative findings in the left breast. No significant masses, calcifications, or other findings are seen in either breast. There has been no significant interval change. IMPRESSION: BENIGN There is no mammographic evidence of malignancy. A 1 year screening mammogram is recommended. Based on the Tyrer Cuzick model (a risk assessment model) the patient's lifetime risk is 0.6% and her 10 year risk is 0.0%. According to the ACR, ACS, and NCCN guidelines, an annual breast MRI exam along with mammogram is recommended if the patient's lifetime risk is 20% or greater. This exam was interpreted at Station ID: [id number]. NOTE: For mammograms, a report in lay terms will be sent to the patient. Approximately 15% of breast malignancies will not be visualized mammographically. In the management of a palpable breast mass, a negative mammogram must not discourage biopsy of a clinically suspicious lesion. Electronically Signed By: Braeden morillo/geovanny:08/31/2023 16:34:25 letter sent: Normal Exam ACR BI-RADS Category 2: Benign Finding(s) 3342F
== END ==
PROVIDERS: PCP Family Medicine; Referring Provider Family Medicine; Visit Provider Family Medicine
DX: Z12.31 Encounter for screening mammogram for malignant neoplasm of breast (principal); R92.323 Mammographic fibroglandular density, bilateral breasts
CPT/HCPCS: 77063; 77067

== ENCOUNTER 2024-01-27 04:34 | Emergency (ER) | payer MEDICARE, OTHER, SELFPAY ==
[2021-09-30 10:00] VITALS: BMI 36.7
[2024-01-27 04:36] VITALS: BP 161/67; PULSE 58; RESP 18; TEMP 36.7; O2SAT 97; BMI 29.9
--- NOTE | 2024-01-27 04:49 | ED_ITS ---
HPI - Wound/Laceration General Chief Complaint: Wound/Laceration Stated Complaint: GLF/finger Lac Time Seen by Provider: 01/27/24 04:49 Source: patient and EMS Mode of arrival: EMS History of Present Illness HPI narrative: 83-year-old woman with a history of multiple sclerosis, left hip chronic pain uses a walker at home got up to let her dog out and stumbled catching her right index finger in the edge of her walker. She has a laceration in the palmar surface over the DIP joint. She was unable to get the bleeding controlled and ended up calling 911. A pressure dressing was applied and she was still bleeding moderately heavily on arrival in the emergency department. Bleeding has now stopped and she has a flap like superficial laceration that does not involve tendons of the right index finger. She is some soft tissue muscle t enderness over the right trapezius muscle and anterior rotator cuff however there is no bruising no decreased range of motion to the shoulder and no bony tenderness at the shoulder. She is not currently on anticoagulants Related Data Home Medications Medication Instructions Recorded Confirmed aspirin 81 mg tablet,delayed 81 mg PO BEDTIME ##0 11/08/12 11/02/23 release (Aspir-) coenzyme Q10 300 mg capsule 300 mg PO DAILY ##0 03/16/13 11/02/23 multivitamin (Multiple Vitamins 1 tab PO QDAY #0 tabs 05/09/16 11/02/23 tablet) vit C 50 mg-E 15 unit-zinc cit 4.5 1 tab PO DAILY 12/13/18 11/02/23 mg-lutein 2.5 mg-zeaxan chew tablet ([facility]) vitamin B complex 1 tab PO DAILY 12/13/18 11/02/23 calcium cit 250 mg-mag 40 mg-D3 1 tab PO DAILY 10/04/20 11/02/23 125 unit-zinc 3.75 mg-newspaper copy editor-keith tablet (Calcium Citrate Plus) acetaminophen 500 mg capsule 1,000 mg PO Q6H PRN 09/30/21 11/02/23 bisacodyl 5 mg tablet,delayed 5 mg PO ONCE PRN constipation 09/30/21 11/02/23 release (Gentle Laxative (bisacodyl)) cholecalciferol (vitamin D3) 125 125 mcg PO DAILY 09/30/21 11/02/23 mcg (5,000 unit) capsule Previous Rx's Medication Instructions Recorded DISABLED PARKING PERMIT #1 ea 09/30/21 albuterol sulfate 90 mcg/actuation 2 puff inhalation Q4HP PRN Asthma 10/23/22 aerosol inhaler (Ventolin HFA) #18 grams potassium chloride 20 mEq 20 meq PO QDAY #90 tabs 10/23/22 tablet,extended release(part/cryst) (Klor-Con M) metoprolol succinate 50 mg 50 mg PO BID #180 tabs 10/26/23 tablet,extended release 24 hr simvastatin 40 mg tablet 40 mg PO ONCE PM #90 tabs 10/26/23 amlodipine 5 mg tablet 5 mg PO BID #180 tabs 11/02/23 baclofen 10 mg tablet 10 mg PO BEDTIME PRN spasms #90 11/02/23 tabs clobetasol 0.05 % topical ointment 1 applic topical DAILY 4 weeks #45 11/02/23 grams furosemide 20 mg tablet 20 mg PO BID #180 tabs 11/02/23 sertraline 50 mg tablet 50 mg PO DAILY #90 tabs 11/02/23 telmisartan 80 1 tab PO QDAY #90 tabs 11/02/23 mg-hydrochlorothiazide 25 mg tablet (Micardis HCT) Allergies Allergy/AdvReac Type Severity Reaction Status Date / Time adhesive tape [ADHESIVE TAPE] Allergy Severe Blisters Verified 11/02/23 15:45 amoxicillin [From AUGMENTIN] Allergy Severe SWELLING Verified 11/02/23 15:45 clavulanic acid Allergy Severe SWELLING Verified 11/02/23 15:45 [From AUGMENTIN] codeine [CODEINE] Allergy Severe ITCHY Verified 11/02/23 15:45 SKIN, RED AND PEELED povidone-iodine Allergy Severe BLISTERS Verified 11/02/23 15:45 [POVIDONE-IODINE] SKIN Sulfa (Sulfonamide Allergy Severe ITCHY Verified 11/02/23 15:45 Antibiotics) SKIN, RED [SULFA (SULFONAMIDE AND PEELED ANTIBIOTICS)] vancomycin [VANCOMYCIN] Allergy Severe ITCHING Verified 11/02/23 15:45 AND BURNING Review of Systems Review of Systems Narrative: Pertinent positive and negative findings as per HPI Patient History Medical History (Updated 01/27/24 @ 05:24 by Trang Abad MD) Facet arthropathy, lumbar Avascular necrosis of bone of left hip Auditory hallucinations Visual hallucinations Preoperative clearance Anxiety Eczema of both hands Blister Arthritis Frequent UTI GERD (gastroesophageal reflux disease) Edema Degenerative joint disease of spine RLS (restless legs syndrome) Multiple sclerosis Asthma Hyperlipidemia Hypertension Diastolic heart failure Urge and stress incontinence Retention of urine, unspecified Hypertension Surgical History Hx of tonsillectomy Status post bilateral cataract extraction S/P wrist surgery Hx of foot surgery H/O arthroscopic knee surgery Status post hysterectomy with oophorectomy Status post laparoscopic cholecystectomy Family History Father Congestive heart failure Emphysema Mother Lymphoma Social History marital status: household members: spouse Smoking Status: Former smoker alcohol intake: never substance use type: does not use Smoking Status: Former smoker alcohol intake frequency: 0-2 drinks per day Substance Use Type: does not use Exam Initial Vital Signs Initial Vital Signs: Vital Signs Temperature 98.0 F 01/27/24 04:36 Pulse Rate 58 L 01/27/24 04:36 Respiratory Rate 18 01/27/24 04:36 Blood Pressure 161/67 H 01/27/24 04:36 Pulse Oximetry 97 01/27/24 04:36 Oxygen Delivery Method Room Air 01/27/24 04:36 General: Alert appropriate in no acute distress Respiratory: Able to speak in full sentences, no obvious respiratory distress Skin: Minor contusion to the dorsum of her right hand. Flap-like laceration over the PIP joint of her right hand. She is neurovascularly intact. Tendons are not visible at the base of the wound. Bleeding has been controlled. Extremity: She does have some tenderness of the right shoulder however she does have full and unrestricted range of motion I do not expect acute bony injury. Neurologic: She does have MS and weakness in the lower extremities but is at her baseline Psych: appropriate insight and affect, cooperative Procedures Laceration Repair Right index finger: Time of procedure: 05:25 Site: hand Side (If applicable): right Size (cm): 2 Description: flap Depth: simple, single layer Local Anesthetic: lidocaine 1% Amount of anesthesia used (mL): 3 Pre-repair: wound explored, irrigated extensively and deep structures intact Skin layer closed with: nylon Skin layer suture size: 4-0 Number of sutures: 4 Technique: simple, interrupted Course Vital Signs Vital signs: Vital Signs - 8 hr 01/26/ 04:36 Temperature 98.0 F Pulse Rate 58 L Respiratory Rate 18 Blood Pressure 161/67 H Pulse Oximetry 97 Oxygen Delivery Method Room Air MDM - Wound/Laceration MDM Narrative Medical decision making narrative: 83-year-old woman with a history of multiple sclerosis using walker at home got up to let her dog out and stumbled falling and catching her right index finger on her walker sustaining a small flap like laceration on the palmar surface over the PIP joint. It does not involve tendons she is neurovascularly intact. She was unable to get the bleeding controlled initially. It was eventually controlled with pressure. There was no evidence of underlying bony injury or other wounds that would require additional imaging or laboratory workup. Laceration was repaired without complication, recommended suture removal on or about February 05 Discussed wound care and wound infection. I do not think that antibiotics are indicated at this time but did review with her reasons to be further evaluated. Questions are answered she is safe for discharge Discharge Plan Departure Patient Disposition: Home Clinical Impression: Laceration of finger Qualifiers: Encounter type: initial encounter Finger: index finger Damage to nail status: without damage Foreign body presence: without foreign body Laterality: right Qualified Code(s): S61.210A - Laceration without foreign body of right index finger without damage to nail, initial encounter Instructions: DI for Laceration Repair Activity Restrictions/Additional Instructions: Thank you for coming in tonight I am sorry that you stumbled over your walker but I am glad that all you had was finger cut rather than anything more significant For stitches were placed and will need to be removed on or about February 05. Please keep some antibiotic ointment and a Band-Aid over the wound. I would recommend changing the Band-Aid at least once every 24 hours and any time that your hands get wet or soiled If you notice increasing redness, drainage or pain you do need to return to be further evaluated for infection. At this point the wound is fairly superficial and does appear to be quite clean I do not think that you need antibiotics at this time If you find that you are getting worse or develop any new symptoms, please feel free to return to the emergency department for further evaluation. Prescriptions: No Action Calcium Citrate Plus [id number] vc-[id number]-mg tablet 1 tab PO DAILY (DME) DISABLED PARKING PERMIT See Rx Instructions .ROUTE .MEDSUPPLY Qty: 1 0RF Rx Instructions: I find this patient to be medically disabled and qualified for disabled parking as indicated, and signed, on the accompanying Disabled Parking Application for Individuals. acetaminophen 500 mg capsule 1,000 mg PO Q6H PRN cholecalciferol (vitamin D3) 125 mcg (5,000 unit) capsule 125 mcg PO DAILY bisacodyl [Gentle Laxative (bisacodyl)] 5 mg tablet,delayed release (DR/EC) 5 mg PO ONCE PRN (Reason: constipation) Ocuvite Eye Health 50 mg-15 unit- 4.5 mg-2.5 mg tablet,chewable 1 tab PO DAILY vitamin B complex tablet 1 tab PO DAILY aspirin [Aspir-81] 81 mg Tablet,Delayed Release (Dr/Ec) 81 mg PO BEDTIME Qty: 0 coenzyme Q10 300 mg Capsule 300 mg PO DAILY Qty: 0 multivitamin [Multiple Vitamins] 1 EACH tablet 1 tab PO QDAY Qty: 0 albuterol sulfate [Ventolin HFA] 90 mcg/actuation HFA aerosol inhaler 2 puff inhalation Q4HP PRN (Reason: Asthma) Qty: 18 4RF potassium chloride [Klor-Con M20] 20 mEq tablet,ER particles/crystals 20 meq PO QDAY Qty: 90 3RF simvastatin 40 mg tablet 40 mg PO ONCE PM Qty: 90 3RF metoprolol succinate 50 mg tablet extended release 24 hr 50 mg PO BID Qty: 180 3RF clobetasol 0.05 % ointment 1 applic topical DAILY 28 Days Qty: 45 1RF amlodipine 5 mg tablet 5 mg PO BID Qty: 180 3RF telmisartan-hydrochlorothiazid [Micardis HCT] 80-25 mg tablet 1 tab PO QDAY Qty: 90 3RF furosemide 20 mg tablet 20 mg PO BID Qty: 180 3RF sertraline 50 mg tablet 50 mg PO DAILY Qty: 90 3RF baclofen 10 mg tablet 10 mg PO BEDTIME PRN (Reason: spasms) Qty: 90 3RF Referrals: James Perez MD [Primary Care Provider] - Stand Alone Forms: Patient Portal/API
[2024-01-27 05:24] VITALS: BP 151/67; PULSE 60; RESP 20; O2SAT 96
== END 2024-01-27 05:42 | disposition home or self-care (01) ==
PROVIDERS: Emergency Provider Emergency Medicine; Family Provider Family Medicine; PCP Family Medicine
DX: S61.210A Laceration without foreign body of right index finger without damage to nail, initial encounter (principal); W18.30XA Fall on same level, unspecified, initial encounter
CPT/HCPCS: 12001; 99281; 99283

== ENCOUNTER → 2024-03-07 13:34 | Outpatient (CLI) | payer MEDICARE, OTHER, SELFPAY ==
[2021-09-30 10:00] VITALS: BMI 36.7
== END ==
LOC: CAR 13:35
PROVIDERS: Family Provider Family Medicine; PCP Family Medicine; Referring Provider Family Medicine; Visit Provider Family Medicine
DX: I50.30 Unspecified diastolic (congestive) heart failure (principal); I50.9 Heart failure, unspecified
CPT/HCPCS: 93246

== ENCOUNTER → 2024-04-01 10:06 | Outpatient (CLI) | payer MEDICARE, OTHER, SELFPAY ==
[2021-09-30 10:00] VITALS: BMI 36.7
--- NOTE | 2024-04-04 23:20 | DI.NM.S_ITS ---
DATE OF SERVICE: 04/01/2024 NUCLEAR CARDIOLOGY MYOCARDIAL PERFUSION STUDY PROCEDURE: Pharmacologic vasodilator stress and rest myocardial perfusion imaging with gating to assess ejection fraction and regional wall motion. ORDERING PROVIDER: James Perez MD. INDICATIONS: The patient is an 83-year-old female with multiple sclerosis, who presents with left shoulder discomfort, exertional dyspnea, and palpitations. FINDINGS: Pharmacologic vasodilator stress: Per protocol, 0.4 mg of regadenoson was infused with a normal hemodynamic response and minimal dyspnea. Her resting ECG showed sinus rhythm with normal DICTATION ENDS HERE. Larisa Villarreal - RS/fn/LA doc#: [id number]/job#: [id number] dd: 04/04/2024 17:21:00 dt: 04/04/2024 23:12:00 DICTATING MD/COPIES TO: Oswald Duggan MD COPIES MNE: YAIMA;
--- NOTE | 2024-04-04 23:30 | DI.NM.S_ITS ---
DATE OF SERVICE: 04/01/2024 NUCLEAR CARDIOLOGY MYOCARDIAL PERFUSION STUDY PROCEDURE: Pharmacologic vasodilator stress and rest myocardial perfusion imaging with gating to assess ejection fraction and regional wall motion. ORDERING PROVIDER: James Perez MD INDICATIONS: The patient is an 83-year-old female with multiple sclerosis with left shoulder pain, exertional dyspnea, and palpitations. Pharmacologic vasodilator stress: Per protocol, 0.4 mg of regadenoson was infused with a normal hemodynamic response with development of minimal dyspnea but no chest discomfort. Her resting ECG showed sinus rhythm with some nonspecific ST-segment abnormalities and occasional PVCs, at times in a trigeminal pattern. With stress, there were no significant ST-segment shifts and continued occasional PVCs without any complex ventricular ectopy. Per protocol, 25.1 mCi of technetium-99m Myoview was injected and she was imaged 15 minutes later using a gated SPECT acquisition protocol. Three days prior, while at rest, she had been injected with 25.8 mCi of technetium-99m Myoview and was imaged 15 minutes later, again using a gated SPECT acquisition protocol. FINDINGS: RAW DATA: There is fair myocardial tracer uptake with obvious breast attenuation artifact noted. While the lung/heart ratio is elevated at 0.47, which can be a sign of pulmonary congestion, this is nonspecific with the use of pharmacologic vasodilator stress and is not visually evident. The TID ratio is normal at 1.04. QUANTITATED GATED SPECT: Post-stress ejection fraction is estimated at 69% without any focal wall motion abnormality and specifically the distal anterior wall appears to have normal contractility. The resting ejection fraction is 70% and a normal resting end-diastolic volume of 105 mL. MYOCARDIAL PERFUSION SCAN: Post-stress supine images show a fairly normal myocardial perfusion pattern although with a small, subtle defect in the distal anterior wall extending to the apex in a pattern consistent with breast attenuation artifact. Unfortunately, the patient could not lie prone to assess for attenuation artifact. The resting images show a similar perfusion pattern although with mild improvement in the distal anterior apical defect. IMPRESSION: 1. Probable normal myocardial perfusion study. 2. Small, focal, subtle, partially reversible perfusion defect in the distal anterolateral wall, most likely representing breast attenuation artifact, although a small previous nontransmural infarction with mild sera-infarct ischemia cannot be entirely excluded, yet is low risk. 3. Normal left ventricular size and systolic function without focal wall motion abnormality. While the lung/heart ratio is elevated at 0.47, which can be a sign of pulmonary congestion, this is nonspecific in this setting and is likely artifactual given the absence of any visual evidence of increased pulmonary uptake. Yet, clinical correlation is needed.. 4. No angina or ECG evidence of ischemia with pharmacologic vasodilator stress and occasional PVCs but no obvious complex ventricular ectopy. Myrna Villarrealen - RS/lesia/MS doc#: [id number]/job#: [id number] dd: 04/04/2024 17:28:00 dt: 04/04/2024 23:16:00 DICTATING MD/COPIES TO: Oswald Duggan MD; James Perez MD COPIES MNE: YAIMA;
== END ==
PROVIDERS: Family Provider Family Medicine; PCP Family Medicine; Referring Provider Family Medicine; Visit Provider Family Medicine
DX: I50.30 Unspecified diastolic (congestive) heart failure (principal); I11.0 Hypertensive heart disease with heart failure
CPT/HCPCS: 78452; 93017; A9502; J2785

== ENCOUNTER 2024-04-18 10:45 | Outpatient (RCR) | payer MEDICARE, OTHER, SELFPAY ==
[2021-09-30 10:00] VITALS: BMI 36.7
--- NOTE | 2024-02-05 09:45 | PT.OPPOC ---
Physical, Occupational & Speech Therapy At [facility] Current Diagnoses Multiple sclerosis (02/05/24) Pain in left hip (02/05/24) Stiffness of left hip, not elsewhere classified (02/05/24) Other abnormalities of gait and mobility (02/05/24) Other symptoms and signs involving the musculoskeletal system (02/05/24) Visit Care Team Role Provider Type James Perez MD Family Provider Physician Primary Care Provider Specialty: Family Practice Address: [address] [place] [address], [address], [address] Email: [email or web address] Aston Servin MD Attending Provider Non-Staff Referring Provider Specialty: Neurology Address: [address] [place] [address], [id number] Email: Plan Of Care PT-OP-B Current Condition Start: 02/05/24 11:34 Freq: Status: Active Protocol: Document 02/05/24 09:00 DCW (Rec: 02/08/24 17:07 DCW [id number]) Current Condition History of Current Condition Onset Date Two year history Current Complaints Left hip pain, difficulty with gait History of Current Condition Pt is an 83 year old female presenting with two year history of left hip pain and gait dysfunction. Pt reports she began to experience left hip pain laying on her left side. Went to see her PCP, reports an x-ray was performed and she found that she had lost her hip bone. 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 Pt unable to stand on left leg for any length of time, very limited with ambulation, only able to go from her house to her mailbox using her 4WW. Additionally, pt has a multi-year history of MS, making her resistant to LAUREN, as she feels like she would decline in function during recovery and would not be able to get her mobility to return. Prior Treatments and Tests Left hip x-ray: IMPRESSION: 1 . 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 There is superolateral subluxation of the proximal femur that is likely chronic, with chronic osseous remodeling of the left acetabulum. A chronic indolent infection or inflammatory arthropathy are felt to be less likely. 2. Postsurgical changes in the included lower lumbar spine. per Nicko Gomes M.D. on PT-OP-T Assessment and Plan Start: 02/05/24 11:34 Freq: Status: Active Protocol: Document 02/05/24 09:00 DCW (Rec: 02/05/24 16:59 DCW [id number]) Physical Therapy Assessment Rehab Potential Rehabilitation Potential Poor Evaluation Complexity Number of Personal Factors/Comorbidities 3 or More Number of Body Systems Impaired 4 or More Clinical Presentation at Evaluation Unstable Impairments Impairments Activity Tolerance,Balance, Functional Activities, Functional Mobility,Gait,Pain, Posture,ROM,Soft Tissue Mobility,Strength,Tone Goals Three Impairment Pt presents with significant LLD in left leg due to loss of femoral head Intermediate Goal (LTG) Pt to ambulate regularly using an elevated shoe/heel lift 80 % of the time in order to decrease effects of leg length discrepancy. LTG Duration 05/05/24 Two Impairment Pt exhibits extreme left hip weakness (nearly all tested planes <2+/5) Intermediate Goal (LTG) Pt to improve left hip abduction MMT to >2+/5 in order to help decrease severe trendelenburg gait LTG Duration 05/05/24 One Impairment Pt does not have an appropriate home exercise program Short Term Goal (STG) Pt to be independent and compliant with an appropriate HEP STG Duration 03/07/24 Assessment Summary Assessment Pt presents with substantial limitations in LE strengthen, gait, balance, and mobility secondary to severe degenerative changes of her left hip. Pt ambulates with severe trendelenburg gait on left side, as well as a right trunk lean due to instability of her left hip and muscle weakness, as well as ambulating on her left toes in full plantarflexion due to significant leg length discrepancy. Pt may obtain some small benefits from skilled therapeutic intervention focusing on improving hip strength, adjusting for LLD, and helping to improve activity tolerance , however will be greatly limited secondary to severity of structural changes in her left hip, as well as prior diagnosis of MS. Physical Therapy Plan Frequency and Duration Frequency of Treatment 2x/Week Plan of Care Start Date 02/05/24 Plan of Care End Date 05/05/24 Therapeutic Interventions Therapeutic Interventions Gait Training,Home Exercise Program,Manual Therapy, Neuromuscular Re-education, Orthotic/Prosthetic Management ,Patient/Caregiver Education, Self-Care/Home Management,Soft Tissue Mobilization,Taping, Therapeutic Activities, Therapeutic Exercises Next Visit Focus/Plan Next Note Type Treatment Note Next Visit Plan Hip strengthening/ stabilization as tolerated, gait training Plan of Care Dates Plan of Care Start Date 02/05/24 Plan of Care End Date 05/05/24 Electronically Signed by: Carlo Oglesby, PT 02/08/24 0115 If you are in agreement with this Plan of Care, please return a signed and dated copy. I have reviewed this Plan of Care and certify that the skilled therapy services above are required to meet the patient?s needs. Physician Signature Date Printed Name and Credentials Clinical Instructor Signature Printed Name and Credentials
--- NOTE | 2024-02-05 09:45 | PT.OIE ---
Current Diagnoses Multiple sclerosis (02/05/24) Pain in left hip (02/05/24) Stiffness of left hip, not elsewhere classified (02/05/24) Other abnormalities of gait and mobility (02/05/24) Other symptoms and signs involving the musculoskeletal system (02/05/24) Past Medical History (Last Updated 10/26/23 @ 15:44 by Kelsie Cleaning MA) Anxiety Arthritis Asthma Auditory hallucinations Avascular necrosis of bone of left hip Blister Degenerative joint disease of spine Diastolic heart failure Eczema of both hands Edema Facet arthropathy, lumbar Frequent UTI GERD (gastroesophageal reflux disease) Hyperlipidemia Hypertension Hypertension Multiple sclerosis Preoperative clearance Retention of urine, unspecified RLS (restless legs syndrome) Urge and stress incontinence Visual hallucinations Past Surgical History (Last Reviewed 07/09/23 @ 09:35 by Robbi Marr DO) H/O arthroscopic knee surgery Hx of foot surgery Hx of tonsillectomy S/P wrist surgery Status post bilateral cataract extraction Status post hysterectomy with oophorectomy Status post laparoscopic cholecystectomy Visit Care Team Role Provider Type James Perez MD Family Provider Physician Primary Care Provider Specialty: Family Practice Address: [address] [place] [address], [address], [address] Email: [email or web address] Aston Servin MD Attending Provider Non-Staff Referring Provider Specialty: Neurology Address: [address] [place] [address], [id number] Email: Physical Therapy Initial Evaluation PT-OP-A Visit Information Start: 02/05/24 11:34 Freq: Status: Active Protocol: Document 02/05/24 09:00 DCW (Rec: 02/05/24 11:42 DCW [id number]) Out-Patient Physical Therapy Visit Information Visit Information Visit Type Initial Evaluation Visit Start Time 09:00 Visit Stop Time 09:45 Visit Number 1 Number of AUTOMOBILE TIRE BUILDER Visits 0 Evaluation Information Evaluation Date 02/05/24 PT-OP-B Current Condition Start: 02/05/24 11:34 Freq: Status: Active Protocol: Document 02/05/24 09:00 DCW (Rec: 02/08/24 17:07 DCW [id number]) Current Condition History of Current Condition Onset Date Two year history Current Complaints Left hip pain, difficulty with gait History of Current Condition Pt is an 83 year old female presenting with two year history of left hip pain and gait dysfunction. Pt reports she began to experience left hip pain laying on her left side. Went to see her PCP, reports an x-ray was performed and she found that she had lost her hip bone. 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 Pt unable to stand on left leg for any length of time, very limited with ambulation, only able to go from her house to her mailbox using her 4WW. Additionally, pt has a multi-year history of MS, making her resistant to LAUREN, as she feels like she would decline in function during recovery and would not be able to get her mobility to return. Prior Treatments and Tests Left hip x-ray: IMPRESSION: 1 . 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 There is superolateral subluxation of the proximal femur that is likely chronic, with chronic osseous remodeling of the left acetabulum. A chronic indolent infection or inflammatory arthropathy are felt to be less likely. 2. Postsurgical changes in the included lower lumbar spine. per Nicko Gomes M.D. on PT-OP-C Subjective Start: 02/05/24 11:34 Freq: Status: Active Protocol: Document 02/05/24 09:00 DCW (Rec: 02/05/24 11:42 DCW [id number]) OP-PT Subjective Patient Comments Patient Comments I was having pain laying on my left side, so I went to see my doctor. I hadn't been in for a year or two because of COVID, and they did an x-ray and found out I lost my hip bone. 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 Due to LLD, pt toe walks on left foot PT-OP-K Range of Motion Start: 02/05/24 11:34 Freq: Status: Active Protocol: Document 02/05/24 09:00 DCW (Rec: 02/05/24 11:53 DCW [id number]) Hip Goniometric Range of Motion Hip Right Passive Testing Position Supine Flexion w/Knee Flexed 110 Abduction 35 Right Active Testing Position Supine Flexion w/Knee Flexed 107 Abduction 22 Left Passive Testing Position Supine Flexion w/Knee Flexed 110 Abduction 7 Internal Rotation 60 External Rotation 55 Left Active Testing Position Supine Flexion w/Knee Flexed 62 Abduction 7 PT-OP-M Strength Start: 02/05/24 11:34 Freq: Status: Active Protocol: Document 02/05/24 09:00 DCW (Rec: 02/05/24 11:53 DCW [id number]) Hip Strength Hip Manual Muscle Testing Right Flexion (L2) 3+ Fair+ Abduction 3+ Fair+ Adduction 3+ Fair+ External Rotation 4- Good- Internal Rotation 4- Good- Left Flexion (L2) 2 Poor Abduction 2- Poor- Adduction 3- Fair- External Rotation 2 Poor Internal Rotation 2- Poor- Knee Strength Knee Manual Muscle Testing Right Flexion (S2) 4 Good Extension (L3) 4 Good Left Flexion (S2) 4- Good- Extension (L3) 4- Good- Ankle/Foot Strength Ankle and Foot Manual Muscle Testing Right Dorsiflexion (L4) 4 Good Left Dorsiflexion (L4) 4- Good- PT-OP-Q Treatments Start: 02/05/24 11:34 Freq: Status: Active Protocol: Document 02/05/24 09:00 DCW (Rec: 02/05/24 11:42 DCW [id number]) Therapeutic Exercises Sidelying Exercises Clamshell Sidelying Exercise Name Clamshell Side left Sitting Exercises Hip Abduction Sitting Exercise Name Hip Abduction Side bilateral Resistance Lv 1 T-band Reverse Clamshell Sitting Exercise Name Seated Reverse Clamshell Side left PT-OP-T Assessment and Plan Start: 02/05/24 11:34 Freq: Status: Active Protocol: Document 02/05/24 09:00 DCW (Rec: 02/05/24 16:59 DC [id number]) Physical Therapy Assessment Rehab Potential Rehabilitation Potential Poor Evaluation Complexity Number of Personal Factors/Comorbidities 3 or More Number of Body Systems Impaired 4 or More Clinical Presentation at Evaluation Unstable Impairments Impairments Activity Tolerance,Balance, Functional Activities, Functional Mobility,Gait,Pain, Posture,ROM,Soft Tissue Mobility,Strength,Tone Goals Three Impairment Pt presents with significant LLD in left leg due to loss of femoral head Snap Shearer Goal (LTG) Pt to ambulate regularly using an elevated shoe/heel lift 80 % of the time in order to decrease effects of leg length discrepancy. LTG Duration 05/05/24 Two Impairment Pt exhibits extreme left hip weakness (nearly all tested planes <2+/5) Snap Shearer Goal (LTG) Pt to improve left hip abduction MMT to >2+/5 in order to help decrease severe trendelenburg gait LTG Duration 05/05/24 One Impairment Pt does not have an appropriate home exercise program Short Term Goal (STG) Pt to be independent and compliant with an appropriate HEP STG Duration 03/07/24 Assessment Summary Assessment Pt presents with substantial limitations in LE strengthen, gait, balance, and mobility secondary to severe degenerative changes of her left hip. Pt ambulates with severe trendelenburg gait on left side, as well as a right trunk lean due to instability of her left hip and muscle weakness, as well as ambulating on her left toes in full plantar flexion due to significant leg length discrepancy. Pt may obtain some small benefits from skilled therapeutic intervention focusing on improving hip strength, adjusting for LLD, and helping to improve activity tolerance , however will be greatly limited secondary to severity of structural changes in her left hip, as well as prior diagnosis of MS. Physical Therapy Plan Frequency and Duration Frequency of Treatment 2x/Week Plan of Care Start Date 02/05/24 Plan of Care End Date 05/05/24 Therapeutic Interventions Therapeutic Interventions Gait Training,Home Exercise Program,Manual Therapy, Neuromuscular Re-education, Orthotic/Prosthetic Management ,Patient/Caregiver Education, Self-Care/Home Management,Soft Tissue Mobilization,Taping, Therapeutic Activities, Therapeutic Exercises Next Visit Focus/Plan Next Note Type Treatment Note Next Visit Plan Hip strengthening/ stabilization as tolerated, gait training
--- NOTE | 2024-02-09 15:18 | PT.OTN ---
Current Diagnoses Multiple sclerosis (02/09/24) Pain in left hip (02/09/24) Stiffness of left hip, not elsewhere classified (02/09/24) Other abnormalities of gait and mobility (02/09/24) Other symptoms and signs involving the musculoskeletal system (02/09/24) Physical Therapy Treatment Note PT-OP-A Visit Information Start: 02/05/24 11:34 Freq: Status: Active Protocol: Document 02/09/24 14:35 DCW (Rec: 02/09/24 15:18 DCW [id number]) Out-Patient Physical Therapy Visit Information Visit Information Visit Type Treatment Note Visit Start Time 14:35 Visit Stop Time 15:15 Visit Number 2 Number of STEEL POURER HELPER Visits 0 Evaluation Information Evaluation Date 02/05/24 PT-OP-B Current Condition Start: 02/05/24 11:34 Freq: Status: Active Protocol: Document 02/05/24 09:00 DCW (Rec: 02/08/24 17:07 DCW [id number]) Current Condition History of Current Condition Onset Date Two year history Current Complaints Left hip pain, difficulty with gait History of Current Condition Pt is an 83 year old female presenting with two year history of left hip pain and gait dysfunction. Pt reports she began to experience left hip pain laying on her left side. Went to see her PCP, reports an x-ray was performed and she found that she had lost her hip bone. 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 Pt unable to stand on left leg for any length of time, very limited with ambulation, only able to go from her house to her mailbox using her 4WW. Additionally, pt has a multi-year history of MS, making her resistant to LAUREN, as she feels like she would decline in function during recovery and would not be able to get her mobility to return. Prior Treatments and Tests Left hip x-ray: IMPRESSION: 1 . 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 There is superolateral subluxation of the proximal femur that is likely chronic, with chronic osseous remodeling of the left acetabulum. A chronic indolent infection or inflammatory arthropathy are felt to be less likely. 2. Postsurgical changes in the included lower lumbar spine. per Nicko Gomes M.D. on PT-OP-C Subjective Start: 02/05/24 11:34 Freq: Status: Active Protocol: Document 02/09/24 14:35 DCW (Rec: 02/09/24 15:18 DCW [id number]) OP-PT Subjective Patient Comments Patient Comments Pt wearing shoes with lift in today. PT-OP-F Manual Assessment Start: 02/05/24 11:34 Freq: Status: Active Protocol: Document 02/05/24 09:00 DCW (Rec: 02/05/24 11:53 DCW [id number]) Manual Assessments Joint Mobility Assessment Joint Mobility Assessment Grinding with passive mobility of left him, but minimal resistance from the joint with flexion/ER/IR, greatly limited passive abduction Other Manual Assessments Other Manual Assessments 2-3 inch LLD due to destruction of left femoral head PT-OP-G Mobility & Gait Start: 02/05/24 11:34 Freq: Status: Active Protocol: Document 02/05/24 09:00 DCW (Rec: 02/05/24 11:53 DCW [id number]) OP Gait Assessment Gait Gait Assistance Required: Standby Assistance Assistive Devices Assistive Device 4 Wheeled Walker Gait Deviations General Gait Pattern Antalgic,Decreased Stride Length,Decreased Feet Clearance,Flexed Trunk,Lateral Trunk Lean Comments Gait Comments Severe left Trendelenburg gait with severe right trunk lean. Due to LLD, pt toe walks on left foot PT-OP-K Range of Motion Start: 02/05/24 11:34 Freq: Status: Active Protocol: Document 02/05/24 09:00 DCW (Rec: 02/05/24 11:53 DCW [id number]) Hip Goniometric Range of Motion Hip Right Passive Testing Position Supine Flexion w/Knee Flexed 110 Abduction 35 Right Active Testing Position Supine Flexion w/Knee Flexed 107 Abduction 22 Left Passive Testing Position Supine Flexion w/Knee Flexed 110 Abduction 7 Internal Rotation 60 External Rotation 55 Left Active Testing Position Supine Flexion w/Knee Flexed 62 Abduction 7 PT-OP-M Strength Start: 02/05/24 11:34 Freq: Status: Active Protocol: Document 02/05/24 09:00 DCW (Rec: 02/05/24 11:53 DCW [id number]) Hip Strength Hip Manual Muscle Testing Right Flexion (L2) 3+ Fair+ Abduction 3+ Fair+ Adduction 3+ Fair+ External Rotation 4- Good- Internal Rotation 4- Good- Left Flexion (L2) 2 Poor Abduction 2- Poor- Adduction 3- Fair- External Rotation 2 Poor Internal Rotation 2- Poor- Knee Strength Knee Manual Muscle Testing Right Flexion (S2) 4 Good Extension (L3) 4 Good Left Flexion (S2) 4- Good- Extension (L3) 4- Good- Ankle/Foot Strength Ankle and Foot Manual Muscle Testing Right Dorsiflexion (L4) 4 Good Left Dorsiflexion (L4) 4- Good- PT-OP-Q Treatments Start: 02/05/24 11:34 Freq: Status: Active Protocol: Document 02/09/24 14:35 DCW (Rec: 02/09/24 15:18 DCW [id number]) Cardio Equipment Recumbent Elliptical ([employer]) Duration (Minutes) 5 Resistance 3 Seat Position 7 Gym Equipment Shuttle Recovery Unilateral Squats Resistance 12# Shuttle Recovery Platform Stable Bilateral Squats Resistance 50# Shuttle Recovery Platform Stable Therapeutic Exercises Standing Exercises Hamstring Curls Standing Exercise Name Hamstring Curls Side bilateral Toe taps Standing Exercise Name Toe taps Side bilateral Equipment Used 4 step, // bars Hip Extension Standing Exercise Name Hip Extension Side bilateral Equipment Used // bars Comments Therapist supports lateral left hip during right extension Hip Abduction Standing Exercise Name Hip Abduction Side bilateral Equipment Used // bars Comments Therapist supports lateral left hip during right abduction Other Exercises Tandem Other Exercise Name Tandem Stance PT-OP-T Assessment and Plan Start: 02/05/24 11:34 Freq: Status: Active Protocol: Document 02/09/24 14:35 DCW (Rec: 02/09/24 15:18 DCW [id number]) Physical Therapy Assessment Impairments Impairments Activity Tolerance,Balance, Functional Activities, Functional Mobility,Gait,Pain, Posture,ROM,Soft Tissue Mobility,Strength,Tone Goals Three Impairment Pt presents with significant LLD in left leg due to loss of femoral head Shelter Goal (LTG) Pt to ambulate regularly using an elevated shoe/heel lift 80 % of the time in order to decrease effects of leg length discrepancy. LTG Duration 05/05/24 Two Impairment Pt exhibits extreme left hip weakness (nearly all tested planes <2+/5) Roll Plugger Goal (LTG) Pt to improve left hip abduction MMT to >2+/5 in order to help decrease severe trendelenburg gait LTG Duration 05/05/24 One Impairment Pt does not have an appropriate home exercise program Short Term Goal (STG) Pt to be independent and compliant with an appropriate HEP STG Duration 03/07/24 Assessment Summary Assessment Pt required assistance to stabilize left hip laterally when attempting to perform standing exercises on right hip. Overall, tolerated well, does require either UE assist or therapist assist for most positioning of left foot. Continue to work on LE strengthening, joint stability , gait, and balance. Physical Therapy Plan Frequency and Duration Frequency of Treatment 2x/Week Plan of Care Start Date 02/05/24 Plan of Care End Date 05/05/24 Therapeutic Interventions Therapeutic Interventions Gait Training,Home Exercise Program,Manual Therapy, Neuromuscular Re-education, Orthotic/Prosthetic Management ,Patient/Caregiver Education, Self-Care/Home Management,Soft Tissue Mobilization,Taping, Therapeutic Activities, Therapeutic Exercises Next Visit Focus/Plan Next Note Type Treatment Note Next Visit Plan Hip strengthening/ stabilization as tolerated, gait training
--- NOTE | 2024-02-12 09:44 | PT.OTN ---
Current Diagnoses Multiple sclerosis (02/12/24) Pain in left hip (02/12/24) Stiffness of left hip, not elsewhere classified (02/12/24) Other abnormalities of gait and mobility (02/12/24) Other symptoms and signs involving the musculoskeletal system (02/12/24) Physical Therapy Treatment Note PT-OP-A Visit Information Start: 02/05/24 11:34 Freq: Status: Active Protocol: Document 02/12/24 09:00 DCW (Rec: 02/12/24 09:43 DCW [id number]) Out-Patient Physical Therapy Visit Information Visit Information Visit Type Treatment Note Visit Start Time 09:00 Visit Stop Time 09:45 Visit Number 3 Number of WOOD MACHINIST APPRENTICE Visits 0 Evaluation Information Evaluation Date 02/05/24 PT-OP-B Current Condition Start: 02/05/24 11:34 Freq: Status: Active Protocol: Document 02/05/24 09:00 DCW (Rec: 02/08/24 17:07 DCW [id number]) Current Condition History of Current Condition Onset Date Two year history Current Complaints Left hip pain, difficulty with gait History of Current Condition Pt is an 83 year old female presenting with two year history of left hip pain and gait dysfunction. Pt reports she began to experience left hip pain laying on her left side. Went to see her PCP, reports an x-ray was performed and she found that she had lost her hip bone. 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 Pt unable to stand on left leg for any length of time, very limited with ambulation, only able to go from her house to her mailbox using her 4WW. Additionally, pt has a multi-year history of MS, making her resistant to LAUREN, as she feels like she would decline in function during recovery and would not be able to get her mobility to return. Prior Treatments and Tests Left hip x-ray: IMPRESSION: 1 . 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 There is superolateral subluxation of the proximal femur that is likely chronic, with chronic osseous remodeling of the left acetabulum. A chronic indolent infection or inflammatory arthropathy are felt to be less likely. 2. Postsurgical changes in the included lower lumbar spine. per Nicko Gomes M.D. on PT-OP-C Subjective Start: 02/05/24 11:34 Freq: Status: Active Protocol: Document 02/12/24 09:00 DCW (Rec: 02/12/24 09:43 DCW [id number]) OP-PT Subjective Patient Comments Patient Comments Pt reports that she was very fatigued after her last session, I couldn't believe how tired I was, I didn't feel like I did all that much. PT-OP-F Manual Assessment Start: 02/05/24 11:34 Freq: Status: Active Protocol: Document 02/05/24 09:00 DCW (Rec: 02/05/24 11:53 DCW [id number]) Manual Assessments Joint Mobility Assessment Joint Mobility Assessment Grinding with passive mobility of left him, but minimal resistance from the joint with flexion/ER/IR, greatly limited passive abduction Other Manual Assessments Other Manual Assessments 2-3 inch LLD due to destruction of left femoral head PT-OP-G Mobility & Gait Start: 02/05/24 11:34 Freq: Status: Active Protocol: Document 02/05/24 09:00 DCW (Rec: 02/05/24 11:53 DCW [id number]) OP Gait Assessment Gait Gait Assistance Required: Standby Assistance Assistive Devices Assistive Device 4 Wheeled Walker Gait Deviations General Gait Pattern Antalgic,Decreased Stride Length,Decreased Feet Clearance,Flexed Trunk,Lateral Trunk Lean Comments Gait Comments Severe left Trendelenburg gait with severe right trunk lean. Due to LLD, pt toe walks on left foot PT-OP-K Range of Motion Start: 02/05/24 11:34 Freq: Status: Active Protocol: Document 02/05/24 09:00 DCW (Rec: 02/05/24 11:53 DCW [id number]) Hip Goniometric Range of Motion Hip Right Passive Testing Position Supine Flexion w/Knee Flexed 110 Abduction 35 Right Active Testing Position Supine Flexion w/Knee Flexed 107 Abduction 22 Left Passive Testing Position Supine Flexion w/Knee Flexed 110 Abduction 7 Internal Rotation 60 External Rotation 55 Left Active Testing Position Supine Flexion w/Knee Flexed 62 Abduction 7 PT-OP-M Strength Start: 02/05/24 11:34 Freq: Status: Active Protocol: Document 02/05/24 09:00 DCW (Rec: 02/05/24 11:53 DCW [id number]) Hip Strength Hip Manual Muscle Testing Right Flexion (L2) 3+ Fair+ Abduction 3+ Fair+ Adduction 3+ Fair+ External Rotation 4- Good- Internal Rotation 4- Good- Left Flexion (L2) 2 Poor Abduction 2- Poor- Adduction 3- Fair- External Rotation 2 Poor Internal Rotation 2- Poor- Knee Strength Knee Manual Muscle Testing Right Flexion (S2) 4 Good Extension (L3) 4 Good Left Flexion (S2) 4- Good- Extension (L3) 4- Good- Ankle/Foot Strength Ankle and Foot Manual Muscle Testing Right Dorsiflexion (L4) 4 Good Left Dorsiflexion (L4) 4- Good- PT-OP-Q Treatments Start: 02/05/24 11:34 Freq: Status: Active Protocol: Document 02/12/24 09:00 DCW (Rec: 02/12/24 09:43 [facility] [id number]) Cardio Equipment Recumbent Elliptical ([employer]) Duration (Minutes) 6 Resistance 3 Seat Position 7 Gym Equipment Shuttle Recovery Unilateral Squats Resistance 12# Shuttle Recovery Platform Stable Bilateral Squats Resistance 50# Shuttle Recovery Platform Stable Therapeutic Ball Hip/Knee Flexion Exercise Details Hip/Knee Flexion /c feet on ball Ball Size/Color Blue - 45 cm Body Position Supine LTR Exercise Details LTR Ball Size/Color Blue - 45 cm Body Position Supine Therapeutic Exercises Supine Exercises Clamshell Supine Exercise Name Supine Clamshell Side bilateral Comments Semi-reclined (wedge) Adduction Supine Exercise Name Adductor ball squeeze Side bilateral Reps/Minutes 5 hold, x20 Comments Semi-reclined (wedge) Heel slide Supine Exercise Name Heel slides /c sliding fabric Side bilateral Reps/Minutes x20 Comments Semi-reclined (wedge) PT-OP-T Assessment and Plan Start: 02/05/24 11:34 Freq: Status: Active Protocol: Document 02/12/24 09:00 DCW (Rec: 02/12/24 09:43 [facility] [id number]) Physical Therapy Assessment Impairments Impairments Activity Tolerance,Balance, Functional Activities, Functional Mobility,Gait,Pain, Posture,ROM,Soft Tissue Mobility,Strength,Tone Goals Three Impairment Pt presents with significant LLD in left leg due to loss of femoral head Material Crew Supervisor Goal (LTG) Pt to ambulate regularly using an elevated shoe/heel lift 80 % of the time in order to decrease effects of leg length discrepancy. LTG Duration 05/05/24 Two Impairment Pt exhibits extreme left hip weakness (nearly all tested planes <2+/5) Material Crew Supervisor Goal (LTG) Pt to improve left hip abduction MMT to >2+/5 in order to help decrease severe trendelenburg gait LTG Duration 05/05/24 One Impairment Pt does not have an appropriate home exercise program Short Term Goal (STG) Pt to be independent and compliant with an appropriate HEP STG Duration 03/07/24 Assessment Summary Assessment Tried to take it a little easier today due to pt's fatigue following last visit, more supine exercises, pt did tolerate a little better, but still quire tired by end of session. Physical Therapy Plan Frequency and Duration Frequency of Treatment 2x/Week Plan of Care Start Date 02/05/24 Plan of Care End Date 05/05/24 Therapeutic Interventions Therapeutic Interventions Gait Training,Home Exercise Program,Manual Therapy, Neuromuscular Re-education, Orthotic/Prosthetic Management ,Patient/Caregiver Education, Self-Care/Home Management,Soft Tissue Mobilization,Taping, Therapeutic Activities, Therapeutic Exercises Next Visit Focus/Plan Next Note Type Treatment Note Next Visit Plan Hip strengthening/ stabilization as tolerated, gait training
--- NOTE | 2024-02-16 12:52 | PT.OTN ---
Current Diagnoses Multiple sclerosis (02/16/24) Pain in left hip (02/16/24) Stiffness of left hip, not elsewhere classified (02/16/24) Other abnormalities of gait and mobility (02/16/24) Other symptoms and signs involving the musculoskeletal system (02/16/24) Physical Therapy Treatment Note PT-OP-A Visit Information Start: 02/05/24 11:34 Freq: Status: Active Protocol: Document 02/16/24 09:36 AB (Rec: 02/16/24 12:52 AB [id number]) Out-Patient Physical Therapy Visit Information Visit Information Visit Type Treatment Note Visit Start Time 10:36 Visit Stop Time 11:17 Visit Number 4 Number of JUNIOR MARKETING ASSOCIATE Visits 1 Evaluation Information Evaluation Date 02/05/24 PT-OP-B Current Condition Start: 02/05/24 11:34 Freq: Status: Active Protocol: Document 02/05/24 09:00 DCW (Rec: 02/08/24 17:07 DCW [id number]) Current Condition History of Current Condition Onset Date Two year history Current Complaints Left hip pain, difficulty with gait History of Current Condition Pt is an 83 year old female presenting with two year history of left hip pain and gait dysfunction. Pt reports she began to experience left hip pain laying on her left side. Went to see her PCP, reports an x-ray was performed and she found that she had lost her hip bone. 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 Pt unable to stand on left leg for any length of time, very limited with ambulation, only able to go from her house to her mailbox using her 4WW. Additionally, pt has a multi-year history of MS, making her resistant to LAUREN, as she feels like she would decline in function during recovery and would not be able to get her mobility to return. Prior Treatments and Tests Left hip x-ray: IMPRESSION: 1 . 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 There is superolateral subluxation of the proximal femur that is likely chronic, with chronic osseous remodeling of the left acetabulum. A chronic indolent infection or inflammatory arthropathy are felt to be less likely. 2. Postsurgical changes in the included lower lumbar spine. per Nicko Gomes M.D. on PT-OP-C Subjective Start: 02/05/24 11:34 Freq: Status: Active Protocol: Document 02/16/24 09:36 AB (Rec: 02/16/24 12:52 AB [id number]) OP-PT Subjective Patient Comments Patient Comments Patient rates pain 6/10 muscles and back. Patient reports she uses 2 quad canes at home, aknowledges she is not supposed to walk with those. 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 Due to LLD, pt toe walks on left foot PT-OP-K Range of Motion Start: 02/05/24 11:34 Freq: Status: Active Protocol: Document 02/05/24 09:00 DCW (Rec: 02/05/24 11:53 DCW [id number]) Hip Goniometric Range of Motion Hip Right Passive Testing Position Supine Flexion w/Knee Flexed 110 Abduction 35 Right Active Testing Position Supine Flexion w/Knee Flexed 107 Abduction 22 Left Passive Testing Position Supine Flexion w/Knee Flexed 110 Abduction 7 Internal Rotation 60 External Rotation 55 Left Active Testing Position Supine Flexion w/Knee Flexed 62 Abduction 7 PT-OP-M Strength Start: 02/05/24 11:34 Freq: Status: Active Protocol: Document 02/05/24 09:00 DCW (Rec: 02/05/24 11:53 DCW [id number]) Hip Strength Hip Manual Muscle Testing Right Flexion (L2) 3+ Fair+ Abduction 3+ Fair+ Adduction 3+ Fair+ External Rotation 4- Good- Internal Rotation 4- Good- Left Flexion (L2) 2 Poor Abduction 2- Poor- Adduction 3- Fair- External Rotation 2 Poor Internal Rotation 2- Poor- Knee Strength Knee Manual Muscle Testing Right Flexion (S2) 4 Good Extension (L3) 4 Good Left Flexion (S2) 4- Good- Extension (L3) 4- Good- Ankle/Foot Strength Ankle and Foot Manual Muscle Testing Right Dorsiflexion (L4) 4 Good Left Dorsiflexion (L4) 4- Good- PT-OP-Q Treatments Start: 02/05/24 11:34 Freq: Status: Active Protocol: Document 02/16/24 09:36 AB (Rec: 02/16/24 12:52 AB [id number]) Therapeutic Exercises Supine Exercises bridge Comments unable breathing from diaphragm in modified restorative pose Reps/Minutes 2 min ankle pumps Side bilateral Reps/Minutes X30 glute set Side bilateral Reps/Minutes X10 Comments verbal cues AASLR Side left Reps/Minutes X10 Comments Verbal cues to quad set and attempt to lift LE Adduction Supine Exercise Name Adductor ball squeeze Side bilateral Reps/Minutes 5 hold, X12 Sitting Exercises chair push up Side bilateral Reps/Minutes X10 Comments verbal and visual cues long arc quad Side bilateral Reps/Minutes X10 without band X 15 with level one band Comments verbal cues seated SLR Side left Reps/Minutes X15 Comments verbal cues Hip Abduction Sitting Exercise Name Hip Abduction Side bilateral Resistance Lv 1 T-band Reps/Minutes 60 seconds X1 and X 10 X 2 without PT-OP-T Assessment and Plan Start: 02/05/24 11:34 Freq: Status: Active Protocol: Document 02/16/24 09:36 AB (Rec: 02/16/24 12:52 AB [id number]) Physical Therapy Assessment Goals Three Impairment Pt presents with significant LLD in left leg due to loss of femoral head Maintenance Technician Goal (LTG) Pt to ambulate regularly using an elevated shoe/heel lift 80 % of the time in order to decrease effects of leg length discrepancy. LTG Duration 05/05/24 Two Impairment Pt exhibits extreme left hip weakness (nearly all tested planes <2+/5) Longterm Goal (LTG) Pt to improve left hip abduction MMT to >2+/5 in order to help decrease severe trendelenburg gait LTG Duration 05/05/24 One Impairment Pt does not have an appropriate home exercise program Short Term Goal (STG) Pt to be independent and compliant with an appropriate HEP STG Duration 03/07/24 Assessment Summary Assessment Larisa reports feeling tired end of session. Physical Therapy Plan Frequency and Duration Frequency of Treatment 2x/Week Plan of Care Start Date 02/05/24 Plan of Care End Date 05/05/24 Next Visit Focus/Plan Next Note Type Treatment Note Next Visit Plan Hip strengthening/ stabilization as tolerated, gait training
--- NOTE | 2024-02-19 12:12 | PT.OTN ---
Current Diagnoses Multiple sclerosis (02/19/24) Pain in left hip (02/19/24) Stiffness of left hip, not elsewhere classified (02/19/24) Other abnormalities of gait and mobility (02/19/24) Other symptoms and signs involving the musculoskeletal system (02/19/24) Physical Therapy Treatment Note PT-OP-A Visit Information Start: 02/05/24 11:34 Freq: Status: Active Protocol: Document 02/19/24 08:12 AB (Rec: 02/19/24 12:12 AB [id number]) Out-Patient Physical Therapy Visit Information Visit Information Visit Type Treatment Note Visit Note [id number] access code for HEP Visit Start Time 09:48 Visit Stop Time 10:33 Visit Number 5 Number of CUSTOMER DEVELOPMENT REPRESENTATIVE Visits 2 Evaluation Information Evaluation Date 02/05/24 PT-OP-B Current Condition Start: 02/05/24 11:34 Freq: Status: Active Protocol: Document 02/05/24 09:00 DCW (Rec: 02/08/24 17:07 DCW [id number]) Current Condition History of Current Condition Onset Date Two year history Current Complaints Left hip pain, difficulty with gait History of Current Condition Pt is an 83 year old female presenting with two year history of left hip pain and gait dysfunction. Pt reports she began to experience left hip pain laying on her left side. Went to see her PCP, reports an x-ray was performed and she found that she had lost her hip bone. 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 Pt unable to stand on left leg for any length of time, very limited with ambulation, only able to go from her house to her mailbox using her 4WW. Additionally, pt has a multi-year history of MS, making her resistant to LAUREN, as she feels like she would decline in function during recovery and would not be able to get her mobility to return. Prior Treatments and Tests Left hip x-ray: IMPRESSION: 1 . 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 There is superolateral subluxation of the proximal femur that is likely chronic, with chronic osseous remodeling of the left acetabulum. A chronic indolent infection or inflammatory arthropathy are felt to be less likely. 2. Postsurgical changes in the included lower lumbar spine. per Nicko Gomes M.D. on PT-OP-C Subjective Start: 02/05/24 11:34 Freq: Status: Active Protocol: Document 02/19/24 08:12 AB (Rec: 02/19/24 12:12 AB [id number]) OP-PT Subjective Patient Comments Patient Comments Patient into session reporting she is feeling exhausted. Patient ambulates into session with 4 wheeled walker Toe touch pattern left LE. Patient reports she is dragging her legs by evening. 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 Due to LLD, pt toe walks on left foot PT-OP-K Range of Motion Start: 02/05/24 11:34 Freq: Status: Active Protocol: Document 02/05/24 09:00 DCW (Rec: 02/05/24 11:53 DCW [id number]) Hip Goniometric Range of Motion Hip Right Passive Testing Position Supine Flexion w/Knee Flexed 110 Abduction 35 Right Active Testing Position Supine Flexion w/Knee Flexed 107 Abduction 22 Left Passive Testing Position Supine Flexion w/Knee Flexed 110 Abduction 7 Internal Rotation 60 External Rotation 55 Left Active Testing Position Supine Flexion w/Knee Flexed 62 Abduction 7 PT-OP-M Strength Start: 02/05/24 11:34 Freq: Status: Active Protocol: Document 02/05/24 09:00 DCW (Rec: 02/05/24 11:53 DCW [id number]) Hip Strength Hip Manual Muscle Testing Right Flexion (L2) 3+ Fair+ Abduction 3+ Fair+ Adduction 3+ Fair+ External Rotation 4- Good- Internal Rotation 4- Good- Left Flexion (L2) 2 Poor Abduction 2- Poor- Adduction 3- Fair- External Rotation 2 Poor Internal Rotation 2- Poor- Knee Strength Knee Manual Muscle Testing Right Flexion (S2) 4 Good Extension (L3) 4 Good Left Flexion (S2) 4- Good- Extension (L3) 4- Good- Ankle/Foot Strength Ankle and Foot Manual Muscle Testing Right Dorsiflexion (L4) 4 Good Left Dorsiflexion (L4) 4- Good- PT-OP-Q Treatments Start: 02/05/24 11:34 Freq: Status: Active Protocol: Document 02/19/24 08:12 AB (Rec: 02/19/24 12:12 AB [id number]) Therapeutic Exercises Supine Exercises lower trunk rotation Supine Exercise Name Patient ed to perform as needed for back stiffness Reps/Minutes one minute Comments Verbal cues to perform in pain free range and bridge Side bilateral Reps/Minutes X5 breathing from diaphragm in modified restorative pose Reps/Minutes 3 min AASLR Supine Exercise Name AROM Side left Reps/Minutes X5X2 Clamshell Supine Exercise Name Supine Clamshell Side bilateral Resistance level one band Reps/Minutes X10 Adduction Supine Exercise Name Adductor ball squeeze Side bilateral Reps/Minutes 5 hold, X12 Heel slide Supine Exercise Name Heel slides /c sliding fabric Side bilateral Reps/Minutes x10x2 Sidelying Exercises Clamshell Sidelying Exercise Name Clamshell Side left Sitting Exercises trunk flexion with rotation Side bilateral Reps/Minutes X3 each side Comments verbal and visual cues dorsi flexion Sitting Exercise Name with and without band Side left Resistance level one band Reps/Minutes X15 without band X 15 with band Hip Abduction Sitting Exercise Name Hip Abduction Side bilateral Resistance Lv 1 T-band Reps/Minutes 60 seconds X1 and X 10 without Therapeutic Activity Therapeutic Activity sit to stand Name with UE use, from a raised seat height Comments Verbal cues for mechanics of sit to stand, LE positioning, hip hinge. PT-OP-T Assessment and Plan Start: 02/05/24 11:34 Freq: Status: Active Protocol: Document 02/19/24 08:12 AB (Rec: 02/19/24 12:12 AB [id number]) Physical Therapy Assessment Goals Three Impairment Pt presents with significant LLD in left leg due to loss of femoral head Halfway Goal (LTG) Pt to ambulate regularly using an elevated shoe/heel lift 80 % of the time in order to decrease effects of leg length discrepancy. LTG Duration 05/05/24 Two Impairment Pt exhibits extreme left hip weakness (nearly all tested planes <2+/5) Halfway Goal (LTG) Pt to improve left hip abduction MMT to >2+/5 in order to help decrease severe trendelenburg gait LTG Duration 05/05/24 One Impairment Pt does not have an appropriate home exercise program Short Term Goal (STG) Pt to be independent and compliant with an appropriate HEP STG Duration 03/07/24 Assessment Summary Assessment Patient reports pain less is good, end of session. Larisa into session able to progress to bridge from glute set and SLR from seated/AA SLR. Physical Therapy Plan Frequency and Duration Frequency of Treatment 2x/Week Plan of Care Start Date 02/05/24 Plan of Care End Date 05/05/24 Next Visit Focus/Plan Next Note Type Treatment Note Next Visit Plan Hip strengthening/ stabilization as tolerated, gait training
--- NOTE | 2024-02-22 13:58 | PT-OP ANOTE ---
Pt cancelled <24 hrs, left message having intestinal issues late this am, called and left message, unable to attend PT today. NETWORK TECHNICIAN called and spoke with pt and confirmed Fri's appt.
--- NOTE | 2024-03-01 09:56 | PT.OTN ---
Current Diagnoses Multiple sclerosis (03/01/24) Pain in left hip (03/01/24) Stiffness of left hip, not elsewhere classified (03/01/24) Other abnormalities of gait and mobility (03/01/24) Other symptoms and signs involving the musculoskeletal system (03/01/24) Physical Therapy Treatment Note PT-OP-A Visit Information Start: 02/05/24 11:34 Freq: Status: Active Protocol: Document 03/01/24 08:07 AB (Rec: 03/01/24 09:56 AB [id number]) Out-Patient Physical Therapy Visit Information Visit Information Visit Type Treatment Note Visit Note [id number] access code for HEP Visit Start Time 09:04 Visit Stop Time 09:55 Visit Number 6 Number of BRICK BURNER HEAD Visits 3 Evaluation Information Evaluation Date 02/05/24 PT-OP-B Current Condition Start: 02/05/24 11:34 Freq: Status: Active Protocol: Document 02/05/24 09:00 DCW (Rec: 02/08/24 17:07 DCW [id number]) Current Condition History of Current Condition Onset Date Two year history Current Complaints Left hip pain, difficulty with gait History of Current Condition Pt is an 83 year old female presenting with two year history of left hip pain and gait dysfunction. Pt reports she began to experience left hip pain laying on her left side. Went to see her PCP, reports an x-ray was performed and she found that she had lost her hip bone. 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 Pt unable to stand on left leg for any length of time, very limited with ambulation, only able to go from her house to her mailbox using her 4WW. Additionally, pt has a multi-year history of MS, making her resistant to LAUREN, as she feels like she would decline in function during recovery and would not be able to get her mobility to return. Prior Treatments and Tests Left hip x-ray: IMPRESSION: 1 . 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 There is superolateral subluxation of the proximal femur that is likely chronic, with chronic osseous remodeling of the left acetabulum. A chronic indolent infection or inflammatory arthropathy are felt to be less likely. 2. Postsurgical changes in the included lower lumbar spine. per Nicko Gomes M.D. on PT-OP-C Subjective Start: 02/05/24 11:34 Freq: Status: Active Protocol: Document 03/01/24 08:07 AB (Rec: 03/01/24 09:56 AB [id number]) OP-PT Subjective Patient Comments Patient Comments Patient comments she was not feeling good one day last week , and then missed the correct date on another appt. 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 Due to LLD, pt toe walks on left foot PT-OP-K Range of Motion Start: 02/05/24 11:34 Freq: Status: Active Protocol: Document 02/05/24 09:00 DCW (Rec: 02/05/24 11:53 DCW [id number]) Hip Goniometric Range of Motion Hip Right Passive Testing Position Supine Flexion w/Knee Flexed 110 Abduction 35 Right Active Testing Position Supine Flexion w/Knee Flexed 107 Abduction 22 Left Passive Testing Position Supine Flexion w/Knee Flexed 110 Abduction 7 Internal Rotation 60 External Rotation 55 Left Active Testing Position Supine Flexion w/Knee Flexed 62 Abduction 7 PT-OP-M Strength Start: 02/05/24 11:34 Freq: Status: Active Protocol: Document 02/05/24 09:00 DCW (Rec: 02/05/24 11:53 DCW [id number]) Hip Strength Hip Manual Muscle Testing Right Flexion (L2) 3+ Fair+ Abduction 3+ Fair+ Adduction 3+ Fair+ External Rotation 4- Good- Internal Rotation 4- Good- Left Flexion (L2) 2 Poor Abduction 2- Poor- Adduction 3- Fair- External Rotation 2 Poor Internal Rotation 2- Poor- Knee Strength Knee Manual Muscle Testing Right Flexion (S2) 4 Good Extension (L3) 4 Good Left Flexion (S2) 4- Good- Extension (L3) 4- Good- Ankle/Foot Strength Ankle and Foot Manual Muscle Testing Right Dorsiflexion (L4) 4 Good Left Dorsiflexion (L4) 4- Good- PT-OP-Q Treatments Start: 02/05/24 11:34 Freq: Status: Active Protocol: Document 03/01/24 08:07 AB (Rec: 03/01/24 09:56 AB [id number]) Therapeutic Exercises Supine Exercises lower trunk rotation Reps/Minutes one minute Comments Verbal cues to perform in pain free range bridge Side bilateral Reps/Minutes X10 Comments vc for dec height and avoiding holding breath breathing from diaphragm in modified restorative pose Reps/Minutes 3 min ankle pumps Side bilateral Reps/Minutes X30 AASLR Supine Exercise Name AROM Side left Reps/Minutes X10 Adduction Supine Exercise Name Adductor ball squeeze Side bilateral Reps/Minutes 5 hold, X10 Comments *Seated this session Sitting Exercises dorsi flexion Sitting Exercise Name with and without band Side left Resistance level one band Reps/Minutes X15 without band X 15 with band long arc quad Side bilateral Reps/Minutes X15 level 2 band Comments verbal cues Hip Abduction Sitting Exercise Name Hip Abduction Side bilateral Resistance Lv 2 T-band Reps/Minutes 60 seconds X1 and X 10 without Gait Training Gait Activity with 4 wheeled walker and scale under with FWW Distance/Duration ~30 feet and 4 steps with scale under LE each LE Comments 80 lb left LE with FWW with toe touch pattern 100 to 120 lb with left foot flat on scale, Patient reports pain is the same. VC to increase force through UE's onto walker during ambulation, monitored for pain PT-OP-T Assessment and Plan Start: 02/05/24 11:34 Freq: Status: Active Protocol: Document 03/01/24 08:07 AB (Rec: 03/01/24 09:56 AB [id number]) Physical Therapy Assessment Goals Three Impairment Pt presents with significant LLD in left leg due to loss of femoral head Laboratory Scientist Goal (LTG) Pt to ambulate regularly using an elevated shoe/heel lift 80 % of the time in order to decrease effects of leg length discrepancy. LTG Duration 05/05/24 Two Impairment Pt exhibits extreme left hip weakness (nearly all tested planes <2+/5) Residential Goal (LTG) Pt to improve left hip abduction MMT to >2+/5 in order to help decrease severe trendelenburg gait LTG Duration 05/05/24 One Impairment Pt does not have an appropriate home exercise program Short Term Goal (STG) Pt to be independent and compliant with an appropriate HEP STG Duration 03/07/24 Assessment Summary Assessment Patient reports feeling dizzy post supine to sit. BP134/66 HR 64 left UE seated end of session. Patient attributes the dizziness to the MS. Physical Therapy Plan Frequency and Duration Frequency of Treatment 2x/Week Plan of Care Start Date 02/05/24 Plan of Care End Date 05/05/24 Next Visit Focus/Plan Next Note Type Treatment Note Next Visit Plan Hip strengthening/ stabilization as tolerated, gait training
--- NOTE | 2024-03-03 16:09 | PT.OTN ---
Current Diagnoses Multiple sclerosis (03/03/24) Pain in left hip (03/03/24) Stiffness of left hip, not elsewhere classified (03/03/24) Other abnormalities of gait and mobility (03/03/24) Other symptoms and signs involving the musculoskeletal system (03/03/24) Physical Therapy Treatment Note PT-OP-A Visit Information Start: 02/05/24 11:34 Freq: Status: Active Protocol: Document 03/03/24 15:19 AB (Rec: 03/03/24 16:08 AB [id number]) Out-Patient Physical Therapy Visit Information Visit Information Visit Type Treatment Note Visit Note [id number] access code for HEP Visit Start Time 15:18 Visit Stop Time 16:04 Visit Number 7 Number of FIREWORKS ASSEMBLER Visits 4 Evaluation Information Evaluation Date 02/05/24 PT-OP-B Current Condition Start: 02/05/24 11:34 Freq: Status: Active Protocol: Document 02/05/24 09:00 DCW (Rec: 02/08/24 17:07 DCW [id number]) Current Condition History of Current Condition Onset Date Two year history Current Complaints Left hip pain, difficulty with gait History of Current Condition Pt is an 83 year old female presenting with two year history of left hip pain and gait dysfunction. Pt reports she began to experience left hip pain laying on her left side. Went to see her PCP, reports an x-ray was performed and she found that she had lost her hip bone. 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 Pt unable to stand on left leg for any length of time, very limited with ambulation, only able to go from her house to her mailbox using her 4WW. Additionally, pt has a multi-year history of MS, making her resistant to LAUREN, as she feels like she would decline in function during recovery and would not be able to get her mobility to return. Prior Treatments and Tests Left hip x-ray: IMPRESSION: 1 . 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 There is superolateral subluxation of the proximal femur that is likely chronic, with chronic osseous remodeling of the left acetabulum. A chronic indolent infection or inflammatory arthropathy are felt to be less likely. 2. Postsurgical changes in the included lower lumbar spine. per Nicko Gomes M.D. on PT-OP-C Subjective Start: 02/05/24 11:34 Freq: Status: Active Protocol: Document 03/03/24 15:19 AB (Rec: 03/03/24 16:08 AB [id number]) OP-PT Subjective Patient Comments Patient Comments Patient reports she is tired today. Comments she was walking through [facility] today to get dressings to change due to Spouses surgery. AA to lift left LE on to mat today. Patient reports she worked in the yard a little bit yesterday with grandopal. 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 Due to LLD, pt toe walks on left foot PT-OP-K Range of Motion Start: 02/05/24 11:34 Freq: Status: Active Protocol: Document 02/05/24 09:00 DCW (Rec: 02/05/24 11:53 DCW [id number]) Hip Goniometric Range of Motion Hip Right Passive Testing Position Supine Flexion w/Knee Flexed 110 Abduction 35 Right Active Testing Position Supine Flexion w/Knee Flexed 107 Abduction 22 Left Passive Testing Position Supine Flexion w/Knee Flexed 110 Abduction 7 Internal Rotation 60 External Rotation 55 Left Active Testing Position Supine Flexion w/Knee Flexed 62 Abduction 7 PT-OP-M Strength Start: 02/05/24 11:34 Freq: Status: Active Protocol: Document 02/05/24 09:00 DCW (Rec: 02/05/24 11:53 DCW [id number]) Hip Strength Hip Manual Muscle Testing Right Flexion (L2) 3+ Fair+ Abduction 3+ Fair+ Adduction 3+ Fair+ External Rotation 4- Good- Internal Rotation 4- Good- Left Flexion (L2) 2 Poor Abduction 2- Poor- Adduction 3- Fair- External Rotation 2 Poor Internal Rotation 2- Poor- Knee Strength Knee Manual Muscle Testing Right Flexion (S2) 4 Good Extension (L3) 4 Good Left Flexion (S2) 4- Good- Extension (L3) 4- Good- Ankle/Foot Strength Ankle and Foot Manual Muscle Testing Right Dorsiflexion (L4) 4 Good Left Dorsiflexion (L4) 4- Good- PT-OP-Q Treatments Start: 02/05/24 11:34 Freq: Status: Active Protocol: Document 03/03/24 15:19 AB (Rec: 03/03/24 16:08 AB [id number]) Therapeutic Exercises Supine Exercises lower trunk rotation Reps/Minutes one minute Comments Verbal cues to perform in pain free range bridge Side bilateral Reps/Minutes X1 Comments unable breathing from diaphragm in modified restorative pose Reps/Minutes 3 min ankle pumps Side bilateral Reps/Minutes X30 glute set Side bilateral Reps/Minutes X10 Comments verbal cues AASLR Supine Exercise Name AROM Side left Reps/Minutes X10 Clamshell Supine Exercise Name Supine Clamshell Side bilateral Resistance level one band Reps/Minutes X10 without hold and with one one min hold Adduction Supine Exercise Name Adductor ball squeeze Side bilateral Reps/Minutes 5 hold, X10 Heel slide Supine Exercise Name with slide board Side bilateral Reps/Minutes x10x2 Sitting Exercises seated HS curls Sitting Exercise Name 1. scooter 2. scooter and band Side bilateral Resistance levle one band Reps/Minutes 1. X 5 2. X 10 Comments verbal cues trunk flexion with rotation Side bilateral Reps/Minutes X3 each side Comments verbal and visual cues dorsi flexion Sitting Exercise Name with and without band Side left Reps/Minutes X15 Standing Exercises Hip Extension Standing Exercise Name Hip Extension Side bilateral Equipment Used // bars Reps/Minutes X10 Comments Therapist supporting with gait belt Hip Abduction Standing Exercise Name Hip Abduction Side bilateral Equipment Used // bars Reps/Minutes X10 Comments therapist supporting with gait belt PT-OP-T Assessment and Plan Start: 02/05/24 11:34 Freq: Status: Active Protocol: Document 03/03/24 15:19 AB (Rec: 03/03/24 16:08 AB [id number]) Physical Therapy Assessment Goals Three Impairment Pt presents with significant LLD in left leg due to loss of femoral head Alf Goal (LTG) Pt to ambulate regularly using an elevated shoe/heel lift 80 % of the time in order to decrease effects of leg length discrepancy. LTG Duration 05/05/24 Two Impairment Pt exhibits extreme left hip weakness (nearly all tested planes <2+/5) Alf Goal (LTG) Pt to improve left hip abduction MMT to >2+/5 in order to help decrease severe trendelenburg gait LTG Duration 05/05/24 One Impairment Pt does not have an appropriate home exercise program Short Term Goal (STG) Pt to be independent and compliant with an appropriate HEP STG Duration 03/07/24 Assessment Summary Assessment Patient reports she is going to lie down when she gets home . Larisa was able to perform SLR, but not bridge this session, likely due to fatigue by activities prior to session to assist spouse. Physical Therapy Plan Frequency and Duration Frequency of Treatment 2x/Week Plan of Care Start Date 02/05/24 Plan of Care End Date 05/05/24 Next Visit Focus/Plan Next Note Type Treatment Note Next Visit Plan Hip strengthening/ stabilization as tolerated, gait training
--- NOTE | 2024-03-08 12:44 | PT.OTN ---
Current Diagnoses Multiple sclerosis (03/08/24) Pain in left hip (03/08/24) Stiffness of left hip, not elsewhere classified (03/08/24) Other abnormalities of gait and mobility (03/08/24) Other symptoms and signs involving the musculoskeletal system (03/08/24) Physical Therapy Treatment Note PT-OP-A Visit Information Start: 02/05/24 11:34 Freq: Status: Active Protocol: Document 03/08/24 12:00 DCW (Rec: 03/08/24 12:43 DCW [id number]) Out-Patient Physical Therapy Visit Information Visit Information Visit Type Treatment Note Visit Start Time 12:00 Visit Stop Time 12:45 Visit Number 8 Number of VIDEO COORDINATOR Visits 0 Evaluation Information Evaluation Date 02/05/24 PT-OP-B Current Condition Start: 02/05/24 11:34 Freq: Status: Active Protocol: Document 02/05/24 09:00 DCW (Rec: 02/08/24 17:07 DCW [id number]) Current Condition History of Current Condition Onset Date Two year history Current Complaints Left hip pain, difficulty with gait History of Current Condition Pt is an 83 year old female presenting with two year history of left hip pain and gait dysfunction. Pt reports she began to experience left hip pain laying on her left side. Went to see her PCP, reports an x-ray was performed and she found that she had lost her hip bone. 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 Pt unable to stand on left leg for any length of time, very limited with ambulation, only able to go from her house to her mailbox using her 4WW. Additionally, pt has a multi-year history of MS, making her resistant to LAUREN, as she feels like she would decline in function during recovery and would not be able to get her mobility to return. Prior Treatments and Tests Left hip x-ray: IMPRESSION: 1 . 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 There is superolateral subluxation of the proximal femur that is likely chronic, with chronic osseous remodeling of the left acetabulum. A chronic indolent infection or inflammatory arthropathy are felt to be less likely. 2. Postsurgical changes in the included lower lumbar spine. per Nicko Gomes M.D. on PT-OP-C Subjective Start: 02/05/24 11:34 Freq: Status: Active Protocol: Document 03/08/24 12:00 DCW (Rec: 03/08/24 12:43 DCW [id number]) OP-PT Subjective Patient Comments Patient Comments Pt admits that she has been pretty fatigued recently, her has been having some health issues, and neither of them are sleeping well. Pt notes that she thinks her hip is maybe doing a bit better. 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 Due to LLD, pt toe walks on left foot PT-OP-K Range of Motion Start: 02/05/24 11:34 Freq: Status: Active Protocol: Document 02/05/24 09:00 DCW (Rec: 02/05/24 11:53 DCW [id number]) Hip Goniometric Range of Motion Hip Right Passive Testing Position Supine Flexion w/Knee Flexed 110 Abduction 35 Right Active Testing Position Supine Flexion w/Knee Flexed 107 Abduction 22 Left Passive Testing Position Supine Flexion w/Knee Flexed 110 Abduction 7 Internal Rotation 60 External Rotation 55 Left Active Testing Position Supine Flexion w/Knee Flexed 62 Abduction 7 PT-OP-M Strength Start: 02/05/24 11:34 Freq: Status: Active Protocol: Document 02/05/24 09:00 DCW (Rec: 02/05/24 11:53 DCW [id number]) Hip Strength Hip Manual Muscle Testing Right Flexion (L2) 3+ Fair+ Abduction 3+ Fair+ Adduction 3+ Fair+ External Rotation 4- Good- Internal Rotation 4- Good- Left Flexion (L2) 2 Poor Abduction 2- Poor- Adduction 3- Fair- External Rotation 2 Poor Internal Rotation 2- Poor- Knee Strength Knee Manual Muscle Testing Right Flexion (S2) 4 Good Extension (L3) 4 Good Left Flexion (S2) 4- Good- Extension (L3) 4- Good- Ankle/Foot Strength Ankle and Foot Manual Muscle Testing Right Dorsiflexion (L4) 4 Good Left Dorsiflexion (L4) 4- Good- PT-OP-Q Treatments Start: 02/05/24 11:34 Freq: Status: Active Protocol: Document 03/08/24 12:00 DCW (Rec: 03/08/24 12:43 [facility] [id number]) Cardio Equipment Recumbent Elliptical ([employer]) Duration (Minutes) 6 Resistance 5 Seat Position 7 Gym Equipment Shuttle Recovery Unilateral Squats Resistance 12# Shuttle Recovery Platform Stable Bilateral Squats Resistance 50# Shuttle Recovery Platform Stable Therapeutic Exercises Supine Exercises Long-axis ER/IR Supine Exercise Name Long-axis LE ER/IR Side left lower trunk rotation Supine Exercise Name LTR Comments Verbal cues to perform in pain free range AASLR Supine Exercise Name AROM Side left Reps/Minutes X10 Clamshell Supine Exercise Name Supine Clamshell Side bilateral Adduction Supine Exercise Name Adductor ball squeeze Side bilateral Reps/Minutes 5 hold, x10 Heel slide Supine Exercise Name with slider sheet Side bilateral Reps/Minutes 2x10 Sitting Exercises seated HS curls Sitting Exercise Name Hamstring Curls Side bilateral Resistance Lv 2 long arc quad Sitting Exercise Name LAQ Side bilateral Resistance 4# PT-OP-T Assessment and Plan Start: 02/05/24 11:34 Freq: Status: Active Protocol: Document 03/08/24 12:00 DCW (Rec: 03/08/24 12:43 MAW [id number]) Physical Therapy Assessment Impairments Impairments Activity Tolerance,Balance, Functional Activities, Functional Mobility,Gait,Pain, Posture,ROM,Soft Tissue Mobility,Strength,Tone Goals Three Impairment Pt presents with significant LLD in left leg due to loss of femoral head Supervisory Investigative Specialist Goal (LTG) Pt to ambulate regularly using an elevated shoe/heel lift 80 % of the time in order to decrease effects of leg length discrepancy. LTG Duration 05/05/24 Two Impairment Pt exhibits extreme left hip weakness (nearly all tested planes <2+/5) Supervisory Investigative Specialist Goal (LTG) Pt to improve left hip abduction MMT to >2+/5 in order to help decrease severe trendelenburg gait LTG Duration 05/05/24 One Impairment Pt does not have an appropriate home exercise program Short Term Goal (STG) Pt to be independent and compliant with an appropriate HEP STG Duration 03/07/24 Assessment Summary Assessment Pt continues to struggle with hip mobility, especially when wearing lifted shoe due to the added weight. Continue to attempt to build up strength and stability. Physical Therapy Plan Frequency and Duration Frequency of Treatment 2x/Week Plan of Care Start Date 02/05/24 Plan of Care End Date 05/05/24 Therapeutic Interventions Therapeutic Interventions Gait Training,Home Exercise Program,Manual Therapy, Neuromuscular Re-education, Orthotic/Prosthetic Management ,Patient/Caregiver Education, Self-Care/Home Management,Soft Tissue Mobilization,Taping, Therapeutic Activities, Therapeutic Exercises Next Visit Focus/Plan Next Note Type Treatment Note Next Visit Plan Hip strengthening/ stabilization as tolerated, gait training
--- NOTE | 2024-03-18 09:34 | PT.OTN ---
Current Diagnoses Multiple sclerosis (03/18/24) Pain in left hip (03/18/24) Stiffness of left hip, not elsewhere classified (03/18/24) Other abnormalities of gait and mobility (03/18/24) Other symptoms and signs involving the musculoskeletal system (03/18/24) Physical Therapy Treatment Note PT-OP-A Visit Information Start: 02/05/24 11:34 Freq: Status: Active Protocol: Document 03/18/24 09:00 DCW (Rec: 03/18/24 09:34 DCW [id number]) Out-Patient Physical Therapy Visit Information Visit Information Visit Type Progress Note Visit Start Time 09:00 Visit Stop Time 09:45 Visit Number 9 Number of MAGNETIC TAPE COMPOSER OPERATOR Visits 0 Evaluation Information Evaluation Date 02/05/24 PT-OP-B Current Condition Start: 02/05/24 11:34 Freq: Status: Active Protocol: Document 02/05/24 09:00 DCW (Rec: 02/08/24 17:07 DCW [id number]) Current Condition History of Current Condition Onset Date Two year history Current Complaints Left hip pain, difficulty with gait History of Current Condition Pt is an 83 year old female presenting with two year history of left hip pain and gait dysfunction. Pt reports she began to experience left hip pain laying on her left side. Went to see her PCP, reports an x-ray was performed and she found that she had lost her hip bone. 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 Pt unable to stand on left leg for any length of time, very limited with ambulation, only able to go from her house to her mailbox using her 4WW. Additionally, pt has a multi-year history of MS, making her resistant to LAUREN, as she feels like she would decline in function during recovery and would not be able to get her mobility to return. Prior Treatments and Tests Left hip x-ray: IMPRESSION: 1 . 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 There is superolateral subluxation of the proximal femur that is likely chronic, with chronic osseous remodeling of the left acetabulum. A chronic indolent infection or inflammatory arthropathy are felt to be less likely. 2. Postsurgical changes in the included lower lumbar spine. per Nicko Gomes M.D. on PT-OP-C Subjective Start: 02/05/24 11:34 Freq: Status: Active Protocol: Document 03/18/24 09:00 DCW (Rec: 03/18/24 09:34 DCW [id number]) OP-PT Subjective Patient Comments Patient Comments I'm actually making more progress than I expected to make. 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 Due to LLD, pt toe walks on left foot PT-OP-K Range of Motion Start: 02/05/24 11:34 Freq: Status: Active Protocol: Document 02/05/24 09:00 DCW (Rec: 02/05/24 11:53 DCW [id number]) Hip Goniometric Range of Motion Hip Right Passive Testing Position Supine Flexion w/Knee Flexed 110 Abduction 35 Right Active Testing Position Supine Flexion w/Knee Flexed 107 Abduction 22 Left Passive Testing Position Supine Flexion w/Knee Flexed 110 Abduction 7 Internal Rotation 60 External Rotation 55 Left Active Testing Position Supine Flexion w/Knee Flexed 62 Abduction 7 PT-OP-M Strength Start: 02/05/24 11:34 Freq: Status: Active Protocol: Document 02/05/24 09:00 DCW (Rec: 02/05/24 11:53 DCW [id number]) Hip Strength Hip Manual Muscle Testing Right Flexion (L2) 3+ Fair+ Abduction 3+ Fair+ Adduction 3+ Fair+ External Rotation 4- Good- Internal Rotation 4- Good- Left Flexion (L2) 2 Poor Abduction 2- Poor- Adduction 3- Fair- External Rotation 2 Poor Internal Rotation 2- Poor- Knee Strength Knee Manual Muscle Testing Right Flexion (S2) 4 Good Extension (L3) 4 Good Left Flexion (S2) 4- Good- Extension (L3) 4- Good- Ankle/Foot Strength Ankle and Foot Manual Muscle Testing Right Dorsiflexion (L4) 4 Good Left Dorsiflexion (L4) 4- Good- PT-OP-Q Treatments Start: 02/05/24 11:34 Freq: Status: Active Protocol: Document 03/18/24 09:00 DCW (Rec: 03/18/24 09:34 DCW [id number]) Cardio Equipment Recumbent Elliptical ([employer]) Duration (Minutes) 6 Resistance 5 Seat Position 8 Gym Equipment Shuttle Recovery Unilateral Squats Resistance 25# Shuttle Recovery Platform Stable Bilateral Squats Resistance 50# Shuttle Recovery Platform Stable Therapeutic Exercises Standing Exercises Hamstring Curls Standing Exercise Name Hamstring Curls Side bilateral Resistance 2# Toe taps Standing Exercise Name Toe taps Side bilateral Resistance 2# Equipment Used 6 step Hip Extension Standing Exercise Name Hip Extension Side bilateral Resistance Lv 1 Equipment Used // bars Reps/Minutes x15 Hip Abduction Standing Exercise Name Hip Abduction Side bilateral Resistance Lv 1 Equipment Used // bars Reps/Minutes x15 Other Exercises Tandem Other Exercise Name Tandem Stance Equipment Used // bars PT-OP-T Assessment and Plan Start: 02/05/24 11:34 Freq: Status: Active Protocol: Document 03/18/24 09:00 DCW (Rec: 03/18/24 09:34 [facility] [id number]) Physical Therapy Assessment Impairments Impairments Activity Tolerance,Balance, Functional Activities, Functional Mobility,Gait,Pain, Posture,ROM,Soft Tissue Mobility,Strength,Tone Goals Three Impairment Pt presents with significant LLD in left leg due to loss of femoral head Snf Goal (LTG) Pt to ambulate regularly using an elevated shoe/heel lift 80 % of the time in order to decrease effects of leg length discrepancy. LTG Duration 05/05/24 Two Impairment Pt exhibits extreme left hip weakness (nearly all tested planes <2+/5) Snf Goal (LTG) Pt to improve left hip abduction MMT to >2+/5 in order to help decrease severe trendelenburg gait LTG Duration 05/05/24 One Impairment Pt does not have an appropriate home exercise program Short Term Goal (STG) Pt to be independent and compliant with an appropriate HEP STG Duration 03/07/24 Assessment Summary Assessment Pt making some mild improvements with hip strength , movement and stability slightly better, but still struggles moving against gravity. Wearing lifted shoe more regularly, but still not every day. Continue to work toward hip strengthening, increased activity tolerance, and stabilization of the hip. Physical Therapy Plan Frequency and Duration Frequency of Treatment 2x/Week Plan of Care Start Date 02/05/24 Plan of Care End Date 05/05/24 Therapeutic Interventions Therapeutic Interventions Gait Training,Home Exercise Program,Manual Therapy, Neuromuscular Re-education, Orthotic/Prosthetic Management ,Patient/Caregiver Education, Self-Care/Home Management,Soft Tissue Mobilization,Taping, Therapeutic Activities, Therapeutic Exercises Next Visit Focus/Plan Next Note Type Treatment Note Next Visit Plan Hip strengthening/ stabilization as tolerated, gait training
--- NOTE | 2024-03-22 11:14 | PT.OTN ---
Current Diagnoses Multiple sclerosis (03/22/24) Pain in left hip (03/22/24) Stiffness of left hip, not elsewhere classified (03/22/24) Other abnormalities of gait and mobility (03/22/24) Other symptoms and signs involving the musculoskeletal system (03/22/24) Physical Therapy Treatment Note PT-OP-A Visit Information Start: 02/05/24 11:34 Freq: Status: Active Protocol: Document 03/22/24 10:30 DCW (Rec: 03/22/24 11:14 DCW [id number]) Out-Patient Physical Therapy Visit Information Visit Information Visit Type Treatment Note Visit Start Time 10:30 Visit Stop Time 11:15 Visit Number 10 Number of FACILITIES MECHANICAL DESIGN ENGINEER Visits 0 Evaluation Information Evaluation Date 02/05/24 PT-OP-B Current Condition Start: 02/05/24 11:34 Freq: Status: Active Protocol: Document 02/05/24 09:00 DCW (Rec: 02/08/24 17:07 DCW [id number]) Current Condition History of Current Condition Onset Date Two year history Current Complaints Left hip pain, difficulty with gait History of Current Condition Pt is an 83 year old female presenting with two year history of left hip pain and gait dysfunction. Pt reports she began to experience left hip pain laying on her left side. Went to see her PCP, reports an x-ray was performed and she found that she had lost her hip bone. 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 Pt unable to stand on left leg for any length of time, very limited with ambulation, only able to go from her house to her mailbox using her 4WW. Additionally, pt has a multi-year history of MS, making her resistant to LAUREN, as she feels like she would decline in function during recovery and would not be able to get her mobility to return. Prior Treatments and Tests Left hip x-ray: IMPRESSION: 1 . 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 There is superolateral subluxation of the proximal femur that is likely chronic, with chronic osseous remodeling of the left acetabulum. A chronic indolent infection or inflammatory arthropathy are felt to be less likely. 2. Postsurgical changes in the included lower lumbar spine. per Nicko Gomes M.D. on PT-OP-C Subjective Start: 02/05/24 11:34 Freq: Status: Active Protocol: Document 03/22/24 10:30 DCW (Rec: 03/22/24 11:14 DCW [id number]) OP-PT Subjective Patient Comments Patient Comments Pt struggling more with ambulation today, notes she had a big day yesterday, spent a lot of time driving and walking, so she's more fatigued today than usual. 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 Due to LLD, pt toe walks on left foot PT-OP-K Range of Motion Start: 02/05/24 11:34 Freq: Status: Active Protocol: Document 02/05/24 09:00 DCW (Rec: 02/05/24 11:53 DCW [id number]) Hip Goniometric Range of Motion Hip Right Passive Testing Position Supine Flexion w/Knee Flexed 110 Abduction 35 Right Active Testing Position Supine Flexion w/Knee Flexed 107 Abduction 22 Left Passive Testing Position Supine Flexion w/Knee Flexed 110 Abduction 7 Internal Rotation 60 External Rotation 55 Left Active Testing Position Supine Flexion w/Knee Flexed 62 Abduction 7 PT-OP-M Strength Start: 02/05/24 11:34 Freq: Status: Active Protocol: Document 02/05/24 09:00 DCW (Rec: 02/05/24 11:53 DCW [id number]) Hip Strength Hip Manual Muscle Testing Right Flexion (L2) 3+ Fair+ Abduction 3+ Fair+ Adduction 3+ Fair+ External Rotation 4- Good- Internal Rotation 4- Good- Left Flexion (L2) 2 Poor Abduction 2- Poor- Adduction 3- Fair- External Rotation 2 Poor Internal Rotation 2- Poor- Knee Strength Knee Manual Muscle Testing Right Flexion (S2) 4 Good Extension (L3) 4 Good Left Flexion (S2) 4- Good- Extension (L3) 4- Good- Ankle/Foot Strength Ankle and Foot Manual Muscle Testing Right Dorsiflexion (L4) 4 Good Left Dorsiflexion (L4) 4- Good- PT-OP-Q Treatments Start: 02/05/24 11:34 Freq: Status: Active Protocol: Document 03/22/24 10:30 DCW (Rec: 03/22/24 11:14 [facility] [id number]) Cardio Equipment Recumbent Elliptical (ShopReply) Duration (Minutes) 6 Resistance 5 Seat Position 8 Gym Equipment Shuttle Recovery Unilateral Squats Resistance 25# Shuttle Recovery Platform Stable Bilateral Squats Resistance 50# Shuttle Recovery Platform Stable Therapeutic Exercises Supine Exercises Abduction Supine Exercise Name Windshield wipers Side bilateral Equipment Used slider sheet Long-axis ER/IR Supine Exercise Name Long-axis LE ER/IR Side bilateral lower trunk rotation Supine Exercise Name LTR Side bilateral Comments In hooklying AASLR Supine Exercise Name AROM Side bilateral Reps/Minutes X10 Clamshell Supine Exercise Name Supine Clamshell Side bilateral Adduction Supine Exercise Name Adductor ball squeeze Side bilateral Reps/Minutes 5 hold, x10 Heel slide Supine Exercise Name Heel slides Side bilateral Equipment Used slider sheet Reps/Minutes 2x10 Sitting Exercises seated HS curls Sitting Exercise Name Hamstring Curls Side bilateral Resistance Lv 2 PT-OP-T Assessment and Plan Start: 02/05/24 11:34 Freq: Status: Active Protocol: Document 03/22/24 10:30 DCW (Rec: 03/22/24 11:14 NYW [id number]) Physical Therapy Assessment Impairments Impairments Activity Tolerance,Balance, Functional Activities, Functional Mobility,Gait,Pain, Posture,ROM,Soft Tissue Mobility,Strength,Tone Goals Three Impairment Pt presents with significant LLD in left leg due to loss of femoral head Assisted Goal (LTG) Pt to ambulate regularly using an elevated shoe/heel lift 80 % of the time in order to decrease effects of leg length discrepancy. LTG Duration 05/05/24 Two Impairment Pt exhibits extreme left hip weakness (nearly all tested planes <2+/5) Assisted Goal (LTG) Pt to improve left hip abduction MMT to >2+/5 in order to help decrease severe trendelenburg gait LTG Duration 05/05/24 One Impairment Pt does not have an appropriate home exercise program Short Term Goal (STG) Pt to be independent and compliant with an appropriate HEP STG Duration 03/07/24 Assessment Summary Assessment Pt clearly more fatigued today after having a busy day yesterday, but put forth good effort with exercises today. Continue to focus on hip strength, balance, and joint stability. Physical Therapy Plan Frequency and Duration Frequency of Treatment 2x/Week Plan of Care Start Date 02/05/24 Plan of Care End Date 05/05/24 Therapeutic Interventions Therapeutic Interventions Gait Training,Home Exercise Program,Manual Therapy, Neuromuscular Re-education, Orthotic/Prosthetic Management ,Patient/Caregiver Education, Self-Care/Home Management,Soft Tissue Mobilization,Taping, Therapeutic Activities, Therapeutic Exercises Next Visit Focus/Plan Next Note Type Treatment Note Next Visit Plan Hip strengthening/ stabilization as tolerated, gait training
--- NOTE | 2024-03-25 12:02 | PT.OTN ---
Current Diagnoses Multiple sclerosis (03/25/24) Pain in left hip (03/25/24) Stiffness of left hip, not elsewhere classified (03/25/24) Other abnormalities of gait and mobility (03/25/24) Other symptoms and signs involving the musculoskeletal system (03/25/24) Physical Therapy Treatment Note PT-OP-A Visit Information Start: 02/05/24 11:34 Freq: Status: Active Protocol: Document 03/25/24 11:20 SP (Rec: 03/25/24 12:19 SP [id number]) Out-Patient Physical Therapy Visit Information Visit Information Visit Type Treatment Note Visit Note 09/19 after PN Visit Start Time 11:20 Visit Stop Time 12:02 Visit Number 11 Number of RECEIVABLE CLERK Visits 1 Evaluation Information Evaluation Date 02/05/24 PT-OP-B Current Condition Start: 02/05/24 11:34 Freq: Status: Active Protocol: Document 02/05/24 09:00 DCW (Rec: 02/08/24 17:07 DCW [id number]) Current Condition History of Current Condition Onset Date Two year history Current Complaints Left hip pain, difficulty with gait History of Current Condition Pt is an 83 year old female presenting with two year history of left hip pain and gait dysfunction. Pt reports she began to experience left hip pain laying on her left side. Went to see her PCP, reports an x-ray was performed and she found that she had lost her hip bone. 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 Pt unable to stand on left leg for any length of time, very limited with ambulation, only able to go from her house to her mailbox using her 4WW. Additionally, pt has a multi-year history of MS, making her resistant to LAUREN, as she feels like she would decline in function during recovery and would not be able to get her mobility to return. Prior Treatments and Tests Left hip x-ray: IMPRESSION: 1 . 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 There is superolateral subluxation of the proximal femur that is likely chronic, with chronic osseous remodeling of the left acetabulum. A chronic indolent infection or inflammatory arthropathy are felt to be less likely. 2. Postsurgical changes in the included lower lumbar spine. per Nicko Gomes M.D. on PT-OP-C Subjective Start: 02/05/24 11:34 Freq: Status: Active Protocol: Document 03/25/24 11:20 SP (Rec: 03/25/24 12:19 SP [id number]) OP-PT Subjective Patient Comments Patient Comments Pt reports no more tired after last tx. 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 Due to LLD, pt toe walks on left foot PT-OP-K Range of Motion Start: 02/05/24 11:34 Freq: Status: Active Protocol: Document 02/05/24 09:00 DCW (Rec: 02/05/24 11:53 DCW [id number]) Hip Goniometric Range of Motion Hip Right Passive Testing Position Supine Flexion w/Knee Flexed 110 Abduction 35 Right Active Testing Position Supine Flexion w/Knee Flexed 107 Abduction 22 Left Passive Testing Position Supine Flexion w/Knee Flexed 110 Abduction 7 Internal Rotation 60 External Rotation 55 Left Active Testing Position Supine Flexion w/Knee Flexed 62 Abduction 7 PT-OP-M Strength Start: 02/05/24 11:34 Freq: Status: Active Protocol: Document 02/05/24 09:00 DCW (Rec: 02/05/24 11:53 DCW [id number]) Hip Strength Hip Manual Muscle Testing Right Flexion (L2) 3+ Fair+ Abduction 3+ Fair+ Adduction 3+ Fair+ External Rotation 4- Good- Internal Rotation 4- Good- Left Flexion (L2) 2 Poor Abduction 2- Poor- Adduction 3- Fair- External Rotation 2 Poor Internal Rotation 2- Poor- Knee Strength Knee Manual Muscle Testing Right Flexion (S2) 4 Good Extension (L3) 4 Good Left Flexion (S2) 4- Good- Extension (L3) 4- Good- Ankle/Foot Strength Ankle and Foot Manual Muscle Testing Right Dorsiflexion (L4) 4 Good Left Dorsiflexion (L4) 4- Good- PT-OP-Q Treatments Start: 02/05/24 11:34 Freq: Status: Active Protocol: Document 03/25/24 11:20 SP (Rec: 03/25/24 12:19 SP [id number]) Cardio Equipment Recumbent Elliptical (Biodex) Duration (Minutes) 6 Resistance 5 Seat Position in 8/ see7 Other cues L>R hip abd fac less valgus cave, UE support needed . Gym Equipment Shuttle Recovery Unilateral Squats Details tactile cues knee lateral midline (therapist hand target ) Resistance 25# (1 navy band) Shuttle Recovery Platform Stable Reps/Time 2x15 each LE Bilateral Squats Details ball between knees Resistance 50# (2 navy bands) Shuttle Recovery Platform Stable Reps/Time x20 Therapeutic Exercises Supine Exercises Abduction Supine Exercise Name [facility] Side bilateral Resistance RLE AROM, LLE AAROM 5%A unwt leg for self ABD Equipment Used slider sheet (pillow cases on each LE) Reps/Minutes x10, x5 Comments cued R LE IR /c ABD, LLE ER /c ABD AAROM Long-axis ER/IR Supine Exercise Name Long-axis LE ER/IR Side bilateral Reps/Minutes x12 reps, 1 sec pause hold end feel Comments cued L push end feel ER, control IR; R effort IR, control ER lower trunk rotation Supine Exercise Name LTR- hooklying Side bilateral Reps/Minutes x10 Comments cued effort L (weaker/ less range side), slow control R Gait Training Gait Activity 4WW Device Used 4WW Level of Assistance S Distance/Duration approx 100 ft, 50 ft, 30 ft within clinic between areas Treatment Focus normalize gait patterning: TKE , knee alignment, posture, stride & ft clear Comments Cued for decreased stride BLE more little passing each other , R>L TKE /c HIP ER knee midline into midstance stance trunk tall over LE improved more taller posturing and stable with less pressure/ strain reports on BUE on 4WW. PT-OP-T Assessment and Plan Start: 02/05/24 11:34 Freq: Status: Active Protocol: Document 03/25/24 11:20 SP (Rec: 03/25/24 12:19 SP [id number]) Physical Therapy Assessment Goals Three Impairment Pt presents with significant LLD in left leg due to loss of femoral head Jail Goal (LTG) Pt to ambulate regularly using an elevated shoe/heel lift 80 % of the time in order to decrease effects of leg length discrepancy. LTG Duration 05/05/24 Two Impairment Pt exhibits extreme left hip weakness (nearly all tested planes <2+/5) Jail Goal (LTG) Pt to improve left hip abduction MMT to >2+/5 in order to help decrease severe trendelenburg gait LTG Duration 05/05/24 One Impairment Pt does not have an appropriate home exercise program Short Term Goal (STG) Pt to be independent and compliant with an appropriate HEP STG Duration 03/07/24 Assessment Summary Assessment Pt tolerated session well, demonstrated good effort with cues for foot positioning neutral RLE hip IR and LLE ER midline during shuttle recovery and supine hip abduction. Improved walking more proximal to 4WW with cues of TKE R>L midline knee positioning with smaller stride, improved RLE foot clearance. Physical Therapy Plan Frequency and Duration Frequency of Treatment 2x/Week Plan of Care Start Date 02/05/24 Plan of Care End Date 05/05/24 Therapeutic Interventions Therapeutic Interventions Gait Training,Home Exercise Program,Manual Therapy, Neuromuscular Re-education, Orthotic/Prosthetic Management ,Patient/Caregiver Education, Self-Care/Home Management,Soft Tissue Mobilization,Taping, Therapeutic Activities, Therapeutic Exercises Next Visit Focus/Plan Next Note Type Treatment Note Next Visit Plan Continue RLE hip IR and LLE hip ER strengthening, improved posture and gait phases proxmal to 4WW. POC: Hip strengthening/ stabilization as tolerated, gait training
--- NOTE | 2024-03-29 09:02 | PT.OTN ---
Current Diagnoses Multiple sclerosis (03/29/24) Pain in left hip (03/29/24) Stiffness of left hip, not elsewhere classified (03/29/24) Other abnormalities of gait and mobility (03/29/24) Other symptoms and signs involving the musculoskeletal system (03/29/24) Physical Therapy Treatment Note PT-OP-A Visit Information Start: 02/05/24 11:34 Freq: Status: Active Protocol: Document 03/29/24 08:20 SP (Rec: 03/29/24 09:02 SP [id number]) Out-Patient Physical Therapy Visit Information Visit Information Visit Type Treatment Note Visit Note 10/20 after PN Visit Start Time 08:20 Visit Stop Time 09:02 Visit Number 12 Number of ENGINE LATHE OPERATOR Visits 2 Evaluation Information Evaluation Date 02/05/24 PT-OP-B Current Condition Start: 02/05/24 11:34 Freq: Status: Active Protocol: Document 02/05/24 09:00 DCW (Rec: 02/08/24 17:07 DCW [id number]) Current Condition History of Current Condition Onset Date Two year history Current Complaints Left hip pain, difficulty with gait History of Current Condition Pt is an 83 year old female presenting with two year history of left hip pain and gait dysfunction. Pt reports she began to experience left hip pain laying on her left side. Went to see her PCP, reports an x-ray was performed and she found that she had lost her hip bone. 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 Pt unable to stand on left leg for any length of time, very limited with ambulation, only able to go from her house to her mailbox using her 4WW. Additionally, pt has a multi-year history of MS, making her resistant to LAUREN, as she feels like she would decline in function during recovery and would not be able to get her mobility to return. Prior Treatments and Tests Left hip x-ray: IMPRESSION: 1 . 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 There is superolateral subluxation of the proximal femur that is likely chronic, with chronic osseous remodeling of the left acetabulum. A chronic indolent infection or inflammatory arthropathy are felt to be less likely. 2. Postsurgical changes in the included lower lumbar spine. per Nicko Gomes M.D. on PT-OP-C Subjective Start: 02/05/24 11:34 Freq: Status: Active Protocol: Document 03/29/24 08:20 SP (Rec: 03/29/24 09:02 SP [id number]) OP-PT Subjective Patient Comments Patient Comments Pt reports just tired after last tx. She has been helping grandson reposition yard patio pavers, she sits in chair and helps place/position them. 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 Due to LLD, pt toe walks on left foot PT-OP-K Range of Motion Start: 02/05/24 11:34 Freq: Status: Active Protocol: Document 02/05/24 09:00 DCW (Rec: 02/05/24 11:53 DCW [id number]) Hip Goniometric Range of Motion Hip Right Passive Testing Position Supine Flexion w/Knee Flexed 110 Abduction 35 Right Active Testing Position Supine Flexion w/Knee Flexed 107 Abduction 22 Left Passive Testing Position Supine Flexion w/Knee Flexed 110 Abduction 7 Internal Rotation 60 External Rotation 55 Left Active Testing Position Supine Flexion w/Knee Flexed 62 Abduction 7 PT-OP-M Strength Start: 02/05/24 11:34 Freq: Status: Active Protocol: Document 02/05/24 09:00 DCW (Rec: 02/05/24 11:53 DCW [id number]) Hip Strength Hip Manual Muscle Testing Right Flexion (L2) 3+ Fair+ Abduction 3+ Fair+ Adduction 3+ Fair+ External Rotation 4- Good- Internal Rotation 4- Good- Left Flexion (L2) 2 Poor Abduction 2- Poor- Adduction 3- Fair- External Rotation 2 Poor Internal Rotation 2- Poor- Knee Strength Knee Manual Muscle Testing Right Flexion (S2) 4 Good Extension (L3) 4 Good Left Flexion (S2) 4- Good- Extension (L3) 4- Good- Ankle/Foot Strength Ankle and Foot Manual Muscle Testing Right Dorsiflexion (L4) 4 Good Left Dorsiflexion (L4) 4- Good- PT-OP-Q Treatments Start: 02/05/24 11:34 Freq: Status: Active Protocol: Document 03/29/24 08:20 SP (Rec: 03/29/24 09:02 SP [id number]) Cardio Equipment Recumbent Elliptical (BiodFOCUS Trainr) Duration (Minutes) 6 Resistance 5 Seat Position see7 Other cues R hip abd fac less valgus cave, UE support needed. Gym Equipment Shuttle Recovery Unilateral Squats Details tactile cues knee lateral midline (therapist hand target & hold foot pos//) Resistance 25# (1 navy band) Shuttle Recovery Platform Stable Reps/Time 2x20 each LE Bilateral Squats Details yellow ball between knees- therapist assist ft pos on platform Resistance 50# (2 navy bands) Shuttle Recovery Platform Stable Reps/Time x20 Therapeutic Exercises Supine Exercises Abduction Supine Exercise Name [facility] Side bilateral Resistance RLE AROM, LLE AAROM 5%A unwt leg for self ABD Equipment Used slider sheet (pillow cases on each LE) Reps/Minutes x10 Comments cued B LE active IR /c ABD AROM R & AAROM L Long-axis ER/IR Supine Exercise Name Long-axis LE ER/IR Side bilateral Resistance AROM Reps/Minutes x12 reps, 1 sec pause hold end feel IR Comments Cued B effort IR, control ER ( L weaker than R) Sitting Exercises seated HS curls Sitting Exercise Name Hamstring Curls Side bilateral Resistance Lv 2- therapist anchor Equipment Used mesh chair Reps/Minutes 2x15 Comments cued fully back long arc quad Sitting Exercise Name LAQ Side bilateral Resistance AROM isometric hold Equipment Used therapist hand as target to kick to Reps/Minutes 5 SH x5 reps x2 sets Comments cued lift hold, DF best can- max 5 reps Gait Training Gait Activity 4WW Device Used 4WW Level of Assistance S Distance/Duration approx 100 ft, approx 30 ft within clinic between areas Treatment Focus normalize gait patterning: TKE , knee alignment, posture, stride & ft clear Comments Cued for decreased stride BLE more little passing each other , R>L TKE /c HIP/knee ER knee midline into midstance stance trunk tall over LE improved more taller posturing and stable with less pressure/ strain reports on BUE on 4WW. Self-Care/Home Management Treatment Education Patient Education Body Mechanics,Posture,Safety Other Education ed safety 4WW locked pre sit and stand PT-OP-T Assessment and Plan Start: 02/05/24 11:34 Freq: Status: Active Protocol: Document 03/29/24 08:20 SP (Rec: 03/29/24 09:02 SP [id number]) Physical Therapy Assessment Goals Three Impairment Pt presents with significant LLD in left leg due to loss of femoral head Manager Of Clinical Goal (LTG) Pt to ambulate regularly using an elevated shoe/heel lift 80 % of the time in order to decrease effects of leg length discrepancy. LTG Duration 05/05/24 Two Impairment Pt exhibits extreme left hip weakness (nearly all tested planes <2+/5) Manager Of Clinical Goal (LTG) Pt to improve left hip abduction MMT to >2+/5 in order to help decrease severe trendelenburg gait LTG Duration 05/05/24 One Impairment Pt does not have an appropriate home exercise program Short Term Goal (STG) Pt to be independent and compliant with an appropriate HEP STG Duration 03/07/24 Assessment Summary Assessment Improved TKE and upright posture and foot clearance gait around gym with each activity change. Cues for tall posture /c TKE knee more lateral midline alignment and close to 4WW, improves foot clearance. Pt cues for hip IR daisy during supine ABD today, continues require 5%A for unweight foot which allow her to perform hip abd strengthening LLE. Physical Therapy Plan Frequency and Duration Frequency of Treatment 2x/Week Plan of Care Start Date 02/05/24 Plan of Care End Date 05/05/24 Therapeutic Interventions Therapeutic Interventions Gait Training,Home Exercise Program,Manual Therapy, Neuromuscular Re-education, Orthotic/Prosthetic Management ,Patient/Caregiver Education, Self-Care/Home Management,Soft Tissue Mobilization,Taping, Therapeutic Activities, Therapeutic Exercises Next Visit Focus/Plan Next Note Type Treatment Note Next Visit Plan Continue RLE hip IR and LLE hip ER strengthening, improved posture and gait phases proxmal to 4WW. POC: Hip strengthening/ stabilization as tolerated, gait training
--- NOTE | 2024-04-05 09:44 | PT.OTN ---
Current Diagnoses Multiple sclerosis (04/05/24) Pain in left hip (04/05/24) Stiffness of left hip, not elsewhere classified (04/05/24) Other abnormalities of gait and mobility (04/05/24) Other symptoms and signs involving the musculoskeletal system (04/05/24) Physical Therapy Treatment Note PT-OP-A Visit Information Start: 02/05/24 11:34 Freq: Status: Active Protocol: Document 04/05/24 09:04 SP (Rec: 04/05/24 09:48 SP [id number]) Out-Patient Physical Therapy Visit Information Visit Information Visit Type Treatment Note Visit Note 11/19 after PN Visit Start Time 09:04 Visit Stop Time 09:44 Visit Number 13 Number of DIESEL PILE HAMMER OPERATOR Visits 3 Evaluation Information Evaluation Date 02/05/24 PT-OP-B Current Condition Start: 02/05/24 11:34 Freq: Status: Active Protocol: Document 02/05/24 09:00 DCW (Rec: 02/08/24 17:07 DCW [id number]) Current Condition History of Current Condition Onset Date Two year history Current Complaints Left hip pain, difficulty with gait History of Current Condition Pt is an 83 year old female presenting with two year history of left hip pain and gait dysfunction. Pt reports she began to experience left hip pain laying on her left side. Went to see her PCP, reports an x-ray was performed and she found that she had lost her hip bone. 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 Pt unable to stand on left leg for any length of time, very limited with ambulation, only able to go from her house to her mailbox using her 4WW. Additionally, pt has a multi-year history of MS, making her resistant to LAUREN, as she feels like she would decline in function during recovery and would not be able to get her mobility to return. Prior Treatments and Tests Left hip x-ray: IMPRESSION: 1 . 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 There is superolateral subluxation of the proximal femur that is likely chronic, with chronic osseous remodeling of the left acetabulum. A chronic indolent infection or inflammatory arthropathy are felt to be less likely. 2. Postsurgical changes in the included lower lumbar spine. per Nicko Gomes M.D. on PT-OP-C Subjective Start: 02/05/24 11:34 Freq: Status: Active Protocol: Document 04/05/24 09:04 SP (Rec: 04/05/24 09:48 SP [id number]) OP-PT Subjective Patient Comments Patient Comments Pt reports she felt good after last tx. Compliant with HEP, some days better than others. Early in day she feels stronger getting around since PT but as day goes on she tires out and LE clearance not as good. She reports having a hard time supine abd self but can do self standing at counter, wants to review and change positioning. 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 Due to LLD, pt toe walks on left foot PT-OP-K Range of Motion Start: 02/05/24 11:34 Freq: Status: Active Protocol: Document 02/05/24 09:00 DCW (Rec: 02/05/24 11:53 DCW [id number]) Hip Goniometric Range of Motion Hip Right Passive Testing Position Supine Flexion w/Knee Flexed 110 Abduction 35 Right Active Testing Position Supine Flexion w/Knee Flexed 107 Abduction 22 Left Passive Testing Position Supine Flexion w/Knee Flexed 110 Abduction 7 Internal Rotation 60 External Rotation 55 Left Active Testing Position Supine Flexion w/Knee Flexed 62 Abduction 7 PT-OP-M Strength Start: 02/05/24 11:34 Freq: Status: Active Protocol: Document 02/05/24 09:00 DCW (Rec: 02/05/24 11:53 DCW [id number]) Hip Strength Hip Manual Muscle Testing Right Flexion (L2) 3+ Fair+ Abduction 3+ Fair+ Adduction 3+ Fair+ External Rotation 4- Good- Internal Rotation 4- Good- Left Flexion (L2) 2 Poor Abduction 2- Poor- Adduction 3- Fair- External Rotation 2 Poor Internal Rotation 2- Poor- Knee Strength Knee Manual Muscle Testing Right Flexion (S2) 4 Good Extension (L3) 4 Good Left Flexion (S2) 4- Good- Extension (L3) 4- Good- Ankle/Foot Strength Ankle and Foot Manual Muscle Testing Right Dorsiflexion (L4) 4 Good Left Dorsiflexion (L4) 4- Good- PT-OP-Q Treatments Start: 02/05/24 11:34 Freq: Status: Active Protocol: Document 04/05/24 09:04 SP (Rec: 04/05/24 09:48 SP [id number]) Cardio Equipment Recumbent Elliptical (TreSensa) Duration (Minutes) 6 Resistance 3>5 Seat Position 4>5 (seat 7 to far today as previous appt L knee locking) Other light contact L knee self support lateral midline (RUE BLEs)-30 RPMs Gym Equipment Shuttle Recovery Unilateral Squats Details tactile cues knee lateral midline (therapist hand target ) Resistance 25#> 37# (1 navy band) Shuttle Recovery Platform Stable Reps/Time 2x10 each LE Bilateral Squats Details yellow ball between knees- therapist assist R ft pos on platform Resistance 50# > 62# (2 navy bands) Shuttle Recovery Platform Stable Reps/Time x20 50#, 10 reps 62# Therapeutic Exercises Sitting Exercises dorsi flexion Sitting Exercise Name HEP reviewed Side left Resistance TB #3 [place] green Reps/Minutes 5 SH x15 reps Comments cues for set up band Hip Abduction Sitting Exercise Name Hip Abduction/Seated Clamshell - HEP reviewed Side bilateral Resistance Lv 2>3 [place] T-bandat thighs (holds self hands at side thighs) Equipment Used mesh chair Reps/Minutes 5 SH x15 reps Comments occ cues for pushing further LLE- good effort Standing Exercises mini squat Standing Exercise Name Trialed in PT per pt request Resistance AROM Equipment Used BUE on rail Reps/Minutes 10 reps, 5 reps Comments Mod cues for R>L TKE, tall posture, glut squeeze side stepping Standing Exercise Name future tx Hip Extension Standing Exercise Name review next tx for HEP Hip Abduction Standing Exercise Name review next tx HEP PT-OP-T Assessment and Plan Start: 02/05/24 11:34 Freq: Status: Active Protocol: Document 04/05/24 09:04 SP (Rec: 04/05/24 09:48 SP [id number]) Physical Therapy Assessment Goals Three Impairment Pt presents with significant LLD in left leg due to loss of femoral head Ash Conveyor Operator Goal (LTG) Pt to ambulate regularly using an elevated shoe/heel lift 80 % of the time in order to decrease effects of leg length discrepancy. LTG Duration 05/05/24 Two Impairment Pt exhibits extreme left hip weakness (nearly all tested planes <2+/5) Fdc Goal (LTG) Pt to improve left hip abduction MMT to >2+/5 in order to help decrease severe trendelenburg gait LTG Duration 05/05/24 One Impairment Pt does not have an appropriate home exercise program Short Term Goal (STG) Pt to be independent and compliant with an appropriate HEP STG Duration 03/07/24 Assessment Summary Assessment Pt tolerated increased resistance on shuttle recovery , seated hip abd and DF today TB #3. Next tx check standing hip abd & ext for carryover HEP. Progress per POC. Physical Therapy Plan Frequency and Duration Frequency of Treatment 2x/Week Plan of Care Start Date 02/05/24 Plan of Care End Date 05/05/24 Therapeutic Interventions Therapeutic Interventions Gait Training,Home Exercise Program,Manual Therapy, Neuromuscular Re-education, Orthotic/Prosthetic Management ,Patient/Caregiver Education, Self-Care/Home Management,Soft Tissue Mobilization,Taping, Therapeutic Activities, Therapeutic Exercises Next Visit Focus/Plan Next Note Type Treatment Note Next Visit Plan 5th visit next appt with PT. Recheck HEP with TB #3. POC: Continue RLE hip IR and LLE hip ER strengthening, improved posture and gait phases proxmal to 4WW. POC: Hip strengthening/ stabilization as tolerated, gait training
--- NOTE | 2024-04-12 09:43 | PT.OTN ---
Current Diagnoses Multiple sclerosis (04/12/24) Pain in left hip (04/12/24) Stiffness of left hip, not elsewhere classified (04/12/24) Other abnormalities of gait and mobility (04/12/24) Other symptoms and signs involving the musculoskeletal system (04/12/24) Physical Therapy Treatment Note PT-OP-A Visit Information Start: 02/05/24 11:34 Freq: Status: Active Protocol: Document 04/12/24 09:03 SP (Rec: 04/12/24 09:47 SP [id number]) Out-Patient Physical Therapy Visit Information Visit Information Visit Type Treatment Note Visit Note 12/20 after PN Visit Start Time 09:03 Visit Stop Time 09:43 Visit Number 14 Number of FACING SLITTER Visits 4 Evaluation Information Evaluation Date 02/05/24 PT-OP-B Current Condition Start: 02/05/24 11:34 Freq: Status: Active Protocol: Document 02/05/24 09:00 DCW (Rec: 02/08/24 17:07 DCW [id number]) Current Condition History of Current Condition Onset Date Two year history Current Complaints Left hip pain, difficulty with gait History of Current Condition Pt is an 83 year old female presenting with two year history of left hip pain and gait dysfunction. Pt reports she began to experience left hip pain laying on her left side. Went to see her PCP, reports an x-ray was performed and she found that she had lost her hip bone. 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 Pt unable to stand on left leg for any length of time, very limited with ambulation, only able to go from her house to her mailbox using her 4WW. Additionally, pt has a multi-year history of MS, making her resistant to LAUREN, as she feels like she would decline in function during recovery and would not be able to get her mobility to return. Prior Treatments and Tests Left hip x-ray: IMPRESSION: 1 . 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 There is superolateral subluxation of the proximal femur that is likely chronic, with chronic osseous remodeling of the left acetabulum. A chronic indolent infection or inflammatory arthropathy are felt to be less likely. 2. Postsurgical changes in the included lower lumbar spine. per Nicko Gomes M.D. on PT-OP-C Subjective Start: 02/05/24 11:34 Freq: Status: Active Protocol: Document 04/12/24 09:03 SP (Rec: 04/12/24 09:47 SP [id number]) OP-PT Subjective Patient Comments Patient Comments Pt reports felt good after last tx. She has on her heavier black shoes today. She reports compliant with band HEP. 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 Due to LLD, pt toe walks on left foot PT-OP-K Range of Motion Start: 02/05/24 11:34 Freq: Status: Active Protocol: Document 02/05/24 09:00 DCW (Rec: 02/05/24 11:53 DCW [id number]) Hip Goniometric Range of Motion Hip Right Passive Testing Position Supine Flexion w/Knee Flexed 110 Abduction 35 Right Active Testing Position Supine Flexion w/Knee Flexed 107 Abduction 22 Left Passive Testing Position Supine Flexion w/Knee Flexed 110 Abduction 7 Internal Rotation 60 External Rotation 55 Left Active Testing Position Supine Flexion w/Knee Flexed 62 Abduction 7 PT-OP-M Strength Start: 02/05/24 11:34 Freq: Status: Active Protocol: Document 02/05/24 09:00 DCW (Rec: 02/05/24 11:53 DCW [id number]) Hip Strength Hip Manual Muscle Testing Right Flexion (L2) 3+ Fair+ Abduction 3+ Fair+ Adduction 3+ Fair+ External Rotation 4- Good- Internal Rotation 4- Good- Left Flexion (L2) 2 Poor Abduction 2- Poor- Adduction 3- Fair- External Rotation 2 Poor Internal Rotation 2- Poor- Knee Strength Knee Manual Muscle Testing Right Flexion (S2) 4 Good Extension (L3) 4 Good Left Flexion (S2) 4- Good- Extension (L3) 4- Good- Ankle/Foot Strength Ankle and Foot Manual Muscle Testing Right Dorsiflexion (L4) 4 Good Left Dorsiflexion (L4) 4- Good- PT-OP-Q Treatments Start: 02/05/24 11:34 Freq: Status: Active Protocol: Document 04/12/24 09:03 SP (Rec: 04/12/24 09:47 SP [id number]) Cardio Equipment Recumbent Elliptical (Biodex) Duration (Minutes) 6 Resistance 5 Seat Position 5>7 (376 steps) Other light contact medial L knee self support midline (RUE BLEs )-30 RPMs Gym Equipment Shuttle Recovery Unilateral Squats Details tactile cues knee lateral midline (therapist hand target ) Resistance 37# (1 navy band) Shuttle Recovery Platform Stable Reps/Time 2x20 R; 10 & 15 R very chall 1st set L (tapping quad helps facilitaion ext) Bilateral Squats Details [place] blue ball between knees - therapist assist R ft pos on platform Resistance 62# (2 navy bands) Shuttle Recovery Platform Stable Reps/Time x20 Therapeutic Exercises Sitting Exercises dorsi flexion Sitting Exercise Name HEP reviewed Side left Resistance TB #3 [place]- self set up Reps/Minutes 5 SH x15 reps Hip Abduction Sitting Exercise Name Hip Abduction/Seated Clamshell - HEP reviewed Side bilateral Resistance 3 [place] T-band at thighs (holds self hands at side thighs) Equipment Used mesh chair Reps/Minutes 5 SH x15 reps Comments occ cues for pushing further LLE- good effort Reverse Clamshell Sitting Exercise Name Seated Reverse Clamshell Side left Reps/Minutes x1 Comments challenged lift LE from floor Standing Exercises mini squat Standing Exercise Name review self HEP Resistance AROM Equipment Used BUE on rail Reps/Minutes 10 reps Comments Min cues for buttocks back during hip hinge, tall posture , glut squeeze std side stepping Standing Exercise Name review self ex home performing around [place] Side bilateral Equipment Used //bars Reps/Minutes 10ft x2 laps Comments occasional cues for taller posture Hip Extension Standing Exercise Name trialed in PT Side bilateral Equipment Used //bars support Reps/Minutes x10 Comments cued tall over stance LE Hip Abduction Standing Exercise Name trialed in PT Side bilateral Equipment Used //bars support Reps/Minutes x10 Comments cued tall over stance LE PT-OP-T Assessment and Plan Start: 02/05/24 11:34 Freq: Status: Active Protocol: Document 04/12/24 09:03 SP (Rec: 04/12/24 09:47 SP [id number]) Physical Therapy Assessment Goals Three Impairment Pt presents with significant LLD in left leg due to loss of femoral head Mcfp Goal (LTG) Pt to ambulate regularly using an elevated shoe/heel lift 80 % of the time in order to decrease effects of leg length discrepancy. LTG Duration 05/05/24 Two Impairment Pt exhibits extreme left hip weakness (nearly all tested planes <2+/5) Mcfp Goal (LTG) Pt to improve left hip abduction MMT to >2+/5 in order to help decrease severe trendelenburg gait LTG Duration 05/05/24 One Impairment Pt does not have an appropriate home exercise program Short Term Goal (STG) Pt to be independent and compliant with an appropriate HEP STG Duration 03/07/24 Assessment Summary Assessment Pt tolerated tx well. She was able to increase reps performance on shuttle recovery. Cues for more upright posture and pelvis under trunk during RLE hip ABD and extension and side stepping, requires increased BUE WB on rail during LLE WB. Physical Therapy Plan Frequency and Duration Frequency of Treatment 2x/Week Plan of Care Start Date 02/05/24 Plan of Care End Date 05/05/24 Therapeutic Interventions Therapeutic Interventions Gait Training,Home Exercise Program,Manual Therapy, Neuromuscular Re-education, Orthotic/Prosthetic Management ,Patient/Caregiver Education, Self-Care/Home Management,Soft Tissue Mobilization,Taping, Therapeutic Activities, Therapeutic Exercises Next Visit Focus/Plan Next Note Type Treatment Note Next Visit Plan 5th visit next appt, then 3 more visits and pt feels ready continue on own. Recheck HEP supine. POC: Continue RLE hip IR and LLE hip ER strengthening, improved posture and gait phases proxmal to 4WW. POC: Hip strengthening/ stabilization as tolerated, gait training
--- NOTE | 2024-04-18 11:17 | PT.OTN ---
Current Diagnoses Multiple sclerosis (04/18/24) Pain in left hip (04/18/24) Stiffness of left hip, not elsewhere classified (04/18/24) Other abnormalities of gait and mobility (04/18/24) Other symptoms and signs involving the musculoskeletal system (04/18/24) Physical Therapy Treatment Note PT-OP-A Visit Information Start: 02/05/24 11:34 Freq: Status: Active Protocol: Document 04/18/24 10:45 DCW (Rec: 04/18/24 11:16 DCW [id number]) Out-Patient Physical Therapy Visit Information Visit Information Visit Type Discharge Summary Visit Start Time 10:45 Visit Stop Time 11:15 Visit Number 15 Number of SWITCH BOX INSTALLER Visits 0 Evaluation Information Evaluation Date 02/05/24 PT-OP-B Current Condition Start: 02/05/24 11:34 Freq: Status: Active Protocol: Document 02/05/24 09:00 DCW (Rec: 02/08/24 17:07 DCW [id number]) Current Condition History of Current Condition Onset Date Two year history Current Complaints Left hip pain, difficulty with gait History of Current Condition Pt is an 83 year old female presenting with two year history of left hip pain and gait dysfunction. Pt reports she began to experience left hip pain laying on her left side. Went to see her PCP, reports an x-ray was performed and she found that she had lost her hip bone. 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 Pt unable to stand on left leg for any length of time, very limited with ambulation, only able to go from her house to her mailbox using her 4WW. Additionally, pt has a multi-year history of MS, making her resistant to LAUREN, as she feels like she would decline in function during recovery and would not be able to get her mobility to return. Prior Treatments and Tests Left hip x-ray: IMPRESSION: 1 . 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 There is superolateral subluxation of the proximal femur that is likely chronic, with chronic osseous remodeling of the left acetabulum. A chronic indolent infection or inflammatory arthropathy are felt to be less likely. 2. Postsurgical changes in the included lower lumbar spine. per Nicko Gomes M.D. on PT-OP-C Subjective Start: 02/05/24 11:34 Freq: Status: Active Protocol: Document 04/18/24 10:45 DCW (Rec: 04/18/24 11:16 DCW [id number]) OP-PT Subjective Patient Comments Patient Comments Pt feeling like she is comfortable with her HEP. 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 Due to LLD, pt toe walks on left foot PT-OP-K Range of Motion Start: 02/05/24 11:34 Freq: Status: Active Protocol: Document 02/05/24 09:00 DCW (Rec: 02/05/24 11:53 DCW [id number]) Hip Goniometric Range of Motion Hip Right Passive Testing Position Supine Flexion w/Knee Flexed 110 Abduction 35 Right Active Testing Position Supine Flexion w/Knee Flexed 107 Abduction 22 Left Passive Testing Position Supine Flexion w/Knee Flexed 110 Abduction 7 Internal Rotation 60 External Rotation 55 Left Active Testing Position Supine Flexion w/Knee Flexed 62 Abduction 7 PT-OP-M Strength Start: 02/05/24 11:34 Freq: Status: Active Protocol: Document 04/18/24 10:45 DCW (Rec: 04/18/24 11:17 DCW [id number]) Hip Strength Hip Manual Muscle Testing Right Flexion (L2) 4 Good Abduction 4 Good Adduction 4 Good External Rotation 4 Good Internal Rotation 4 Good Left Flexion (L2) 2 Poor Abduction 3- Fair- Adduction 4- Good- External Rotation 3- Fair- Internal Rotation 3- Fair- PT-OP-Q Treatments Start: 02/05/24 11:34 Freq: Status: Active Protocol: Document 04/18/24 10:45 DCW (Rec: 04/18/24 11:16 DCW [id number]) Cardio Equipment Recumbent Elliptical (Biodex) Duration (Minutes) 6 Resistance 5 Seat Position 7 Other light contact medial L knee self support midline (RUE BLEs )-30 RPMs Gym Equipment Shuttle Recovery Unilateral Squats Details tactile cues knee lateral midline (therapist hand target ) Resistance 37# (1 navy band) Shuttle Recovery Platform Stable Reps/Time x20 Bilateral Squats Details [place] blue ball between knees - therapist assist R ft pos on platform Resistance 62# Shuttle Recovery Platform Stable Reps/Time x20 PT-OP-T Assessment and Plan Start: 02/05/24 11:34 Freq: Status: Active Protocol: Document 04/18/24 10:45 DCW (Rec: 04/18/24 11:16 DCW [id number]) Physical Therapy Assessment Impairments Impairments Activity Tolerance,Balance, Functional Activities, Functional Mobility,Gait,Pain, Posture,ROM,Soft Tissue Mobility,Strength,Tone Goals Three Impairment Pt presents with significant LLD in left leg due to loss of femoral head [facility] Goal (LTG) Pt to ambulate regularly using an elevated shoe/heel lift 80 % of the time in order to decrease effects of leg length discrepancy. LTG Duration 05/05/24 Two Impairment Pt exhibits extreme left hip weakness (nearly all tested planes <2+/5) Corsets Salesperson Goal (LTG) Pt to improve left hip abduction MMT to >2+/5 in order to help decrease severe trendelenburg gait LTG Duration 05/05/24 One Impairment Pt does not have an appropriate home exercise program Short Term Goal (STG) Pt to be independent and compliant with an appropriate HEP STG Duration 03/07/24 Assessment Summary Assessment Pt requesting discharge at this time, feeling comfortable with her independent HEP, but having difficulty getting to her appointments. Physical Therapy Plan Frequency and Duration Frequency of Treatment 2x/Week Plan of Care Start Date 02/05/24 Plan of Care End Date 05/05/24 Therapeutic Interventions Therapeutic Interventions Gait Training,Home Exercise Program,Manual Therapy, Neuromuscular Re-education, Orthotic/Prosthetic Management ,Patient/Caregiver Education, Self-Care/Home Management,Soft Tissue Mobilization,Taping, Therapeutic Activities, Therapeutic Exercises Discharge Physical Therapy Discharge Reasons Patient Request Next Visit Focus/Plan Next Note Type Discharge Summary
--- NOTE | 2024-04-18 11:19 | PT.OTN ---
Current Diagnoses Multiple sclerosis (04/18/24) Pain in left hip (04/18/24) Stiffness of left hip, not elsewhere classified (04/18/24) Other abnormalities of gait and mobility (04/18/24) Other symptoms and signs involving the musculoskeletal system (04/18/24) Physical Therapy Treatment Note PT-OP-A Visit Information Start: 02/05/24 11:34 Freq: Status: Active Protocol: Document 04/18/24 10:45 DCW (Rec: 04/18/24 11:16 DCW [id number]) Out-Patient Physical Therapy Visit Information Visit Information Visit Type Discharge Summary Visit Start Time 10:45 Visit Stop Time 11:15 Visit Number 15 Number of WREATH AND GAR[place] MAKER HAND Visits 0 Evaluation Information Evaluation Date 02/05/24 PT-OP-B Current Condition Start: 02/05/24 11:34 Freq: Status: Active Protocol: Document 02/05/24 09:00 DCW (Rec: 02/08/24 17:07 DCW [id number]) Current Condition History of Current Condition Onset Date Two year history Current Complaints Left hip pain, difficulty with gait History of Current Condition Pt is an 83 year old female presenting with two year history of left hip pain and gait dysfunction. Pt reports she began to experience left hip pain laying on her left side. Went to see her PCP, reports an x-ray was performed and she found that she had lost her hip bone. 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 Pt unable to stand on left leg for any length of time, very limited with ambulation, only able to go from her house to her mailbox using her 4WW. Additionally, pt has a multi-year history of MS, making her resistant to LAUREN, as she feels like she would decline in function during recovery and would not be able to get her mobility to return. Prior Treatments and Tests Left hip x-ray: IMPRESSION: 1 . 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 There is superolateral subluxation of the proximal femur that is likely chronic, with chronic osseous remodeling of the left acetabulum. A chronic indolent infection or inflammatory arthropathy are felt to be less likely. 2. Postsurgical changes in the included lower lumbar spine. per Nicko Gomes M.D. on PT-OP-C Subjective Start: 02/05/24 11:34 Freq: Status: Active Protocol: Document 04/18/24 10:45 DCW (Rec: 04/18/24 11:16 DCW [id number]) OP-PT Subjective Patient Comments Patient Comments Pt feeling like she is comfortable with her HEP. 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 Due to LLD, pt toe walks on left foot PT-OP-K Range of Motion Start: 02/05/24 11:34 Freq: Status: Active Protocol: Document 02/05/24 09:00 DCW (Rec: 02/05/24 11:53 DCW [id number]) Hip Goniometric Range of Motion Hip Right Passive Testing Position Supine Flexion w/Knee Flexed 110 Abduction 35 Right Active Testing Position Supine Flexion w/Knee Flexed 107 Abduction 22 Left Passive Testing Position Supine Flexion w/Knee Flexed 110 Abduction 7 Internal Rotation 60 External Rotation 55 Left Active Testing Position Supine Flexion w/Knee Flexed 62 Abduction 7 PT-OP-M Strength Start: 02/05/24 11:34 Freq: Status: Active Protocol: Document 04/18/24 10:45 DCW (Rec: 04/18/24 11:17 DCW [id number]) Hip Strength Hip Manual Muscle Testing Right Flexion (L2) 4 Good Abduction 4 Good Adduction 4 Good External Rotation 4 Good Internal Rotation 4 Good Left Flexion (L2) 2 Poor Abduction 3- Fair- Adduction 4- Good- External Rotation 3- Fair- Internal Rotation 3- Fair- PT-OP-Q Treatments Start: 02/05/24 11:34 Freq: Status: Active Protocol: Document 04/18/24 10:45 DCW (Rec: 04/18/24 11:16 DCW [id number]) Cardio Equipment Recumbent Elliptical (Biodex) Duration (Minutes) 6 Resistance 5 Seat Position 7 Other light contact medial L knee self support midline (RUE BLEs )-30 RPMs Gym Equipment Shuttle Recovery Unilateral Squats Details tactile cues knee lateral midline (therapist hand target ) Resistance 37# (1 navy band) Shuttle Recovery Platform Stable Reps/Time x20 Bilateral Squats Details [place] blue ball between knees - therapist assist R ft pos on platform Resistance 62# Shuttle Recovery Platform Stable Reps/Time x20 PT-OP-T Assessment and Plan Start: 02/05/24 11:34 Freq: Status: Active Protocol: Document 04/18/24 10:45 DCW (Rec: 04/18/24 11:16 DCW [id number]) Physical Therapy Assessment Impairments Impairments Activity Tolerance,Balance, Functional Activities, Functional Mobility,Gait,Pain, Posture,ROM,Soft Tissue Mobility,Strength,Tone Goals Three Impairment Pt presents with significant LLD in left leg due to loss of femoral head Alf Goal (LTG) Pt to ambulate regularly using an elevated shoe/heel lift 80 % of the time in order to decrease effects of leg length discrepancy. LTG Duration 05/05/24 Two Impairment Pt exhibits extreme left hip weakness (nearly all tested planes <2+/5) Supervisor Telephone Information Goal (LTG) Pt to improve left hip abduction MMT to >2+/5 in order to help decrease severe trendelenburg gait LTG Duration 05/05/24 One Impairment Pt does not have an appropriate home exercise program Short Term Goal (STG) Pt to be independent and compliant with an appropriate HEP STG Duration 03/07/24 Assessment Summary Assessment Pt requesting discharge at this time, feeling comfortable with her independent HEP, but having difficulty getting to her appointments. Pt overall made reasonable progress, showing improvement in left hip strength. Ambulating with less trendelenburg gait and lateral trunk flexion, however still very obviously present. Pt agreeable to working on ambulating regularly. Physical Therapy Plan Frequency and Duration Frequency of Treatment 2x/Week Plan of Care Start Date 02/05/24 Plan of Care End Date 05/05/24 Therapeutic Interventions Therapeutic Interventions Gait Training,Home Exercise Program,Manual Therapy, Neuromuscular Re-education, Orthotic/Prosthetic Management ,Patient/Caregiver Education, Self-Care/Home Management,Soft Tissue Mobilization,Taping, Therapeutic Activities, Therapeutic Exercises Discharge Physical Therapy Discharge Reasons Patient Request Next Visit Focus/Plan Next Note Type Discharge Summary
== END 2024-05-03 10:20 | disposition home or self-care (01) ==
LOC: PHYS 10:45
PROVIDERS: Family Provider Family Medicine; PCP Family Medicine; Referring Provider Psychiatry & Neurology Neurology; Visit Provider Psychiatry & Neurology Neurology
DX: G35 Multiple sclerosis (principal); M25.552 Pain in left hip; R29.898 Other symptoms and signs involving the musculoskeletal system; R26.89 Other abnormalities of gait and mobility; M25.652 Stiffness of left hip, not elsewhere classified
CPT/HCPCS: 97110; 97116; 97140; 97163

== ENCOUNTER → 2024-07-12 11:28 | Outpatient (CLI) | payer MEDICARE, OTHER, SELFPAY ==
[2021-09-30 10:00] VITALS: BMI 36.7
[2024-07-12 12:36] LABS: Add Manual Diff / Slide Review NO; Basophils Absolute Auto 100 /uL (0-100); Basophils Percent Auto 1.1 % (0-2); Eosinophils Absolute Auto 500 /uL (0-450); Eosinophils Percent Auto 6.2 % (2-4); Hemoglobin 11.4 g/dL (12.0-16.0); Lymphocytes Absolute Auto 1700 /uL (1100-4500); Mean Corpuscular HGB Conc 33.5 % (30-36); Mean Corpuscular Hemoglobin 29.3 PG (26-34); Mean Corpuscular Volume 87.4 fL (80-100); Monocytes Absolute Auto 700 /uL (0-900); Neutrophils Absolute Auto 5400 /uL (1500-7000); Neutrophils Percent Auto 64.7 % (50-75); Platelet Count 265 X10^3/uL (150-400); Red Blood Cell Count 3.89 X10^6/uL (4.0-5.2); Red Cell Distribution Width 14.5 % (11.6-14.8); White Blood Cell Count 8.4 X10^3/uL (4.5-11.0)
[2024-07-12 12:53] LABS: Cholesterol 182 mg/dL (140-199); HDL Cholesterol 63 mg/dL (40-60); LDL Cholesterol Calculated 88 mg/dL (<100); Triglycerides 153 mg/dL (35-150)
[2024-07-12 13:26] LABS: TSH w/ Reflex to FT4 2.65 uIU/mL (0.47-4.68)
== END ==
PROVIDERS: Family Provider Family Medicine; PCP Family Medicine; Referring Provider Family Medicine; Visit Provider Family Medicine
DX: I11.0 Hypertensive heart disease with heart failure (principal); I50.30 Unspecified diastolic (congestive) heart failure; N18.32 Chronic kidney disease, stage 3b; R73.9 Hyperglycemia, unspecified; G35 Multiple sclerosis
CPT/HCPCS: 36415; 80061; 84443; 85025

== ENCOUNTER → 2024-08-18 08:58 | Outpatient (CLI) | payer MEDICARE, OTHER, SELFPAY ==
[2021-09-30 10:00] VITALS: BMI 36.7
--- NOTE | 2024-08-18 09:01 | DI.ECHO.S_ITS ---
[facility] : : [address] : : [place] : : [id number] : : Phone: [phone] Echocardiogram Report + + :Name: DEANDRA MOREIRA Study Date: 08/18/2024 Height: 64 in : :Hospital ReadingLocation: Weight: 175 lb : : Gender: Female BSA: 1.8 m2 : :: 1940 Age: 84 yrs BP: 136/66 mmHg: :Reason For Study: PVC AND CHF : :Ordering Physician: LIAT, : :DARRYL Performed By: Taylor Frias : :Referring: DARRYL JOSUE : + + Interpretation Summary Normal LV size and systolic function. LVEF is 60-65% Diastolic dysfunction with elevated filling pressures is noted. Diastolic parameters suggest probable elevated filling pressures. LA is severely dilated. Mild valvular dysfunction is noted throughout. Moderate pHTN is present. Elevated RA pressure is noted. When compared to TTE dated 03/25/2018, patient is now likely hypervolemic. Procedure: A two-dimensional transthoracic echocardiogram with color flow and Doppler was performed. The study quality was technically adequate. Comparison is made with the echocardiogram of 03/25/2018. The patient was in sinus bradycardia with heart rates between 56-61 bpm during the exam. Left Ventricle: The left ventricle is normal in size and wall thickness. The ejection fraction is estimated to be 60-65%. Diastolic parameters suggest probable elevated filling pressures. Right Ventricle: The right ventricle is normal in size and function. Atria: The left atrium is severely dilated. Right atrial size is normal. The atrial septum is aneurysmal. Mitral Valve: The mitral valve leaflets are mildly calcified. There is moderate mitral annular calcification. The mitral valve mean gradient is 2.9 mmHg. There is mild mitral regurgitation. Aortic Valve: The aortic valve is trileaflet. The aortic valve opens well. There is no aortic valve stenosis. There is mild aortic regurgitation. Tricuspid Valve: The tricuspid valve leaflets are thin and pliable. There is mild tricuspid regurgitation. The right ventricular systolic pressure is estimated to be at least 41 mmHg based on an estimated right atrial pressure of 15 mm Hg. Pulmonic Valve: The pulmonic valve is not well visualized. There is no pulmonic valvular regurgitation. Great Vessels: The aortic root is normal size. The dimensions of the ascending aorta are normal. The IVC is dilated (diameter is greater than 2.1 cm) and it collapses less than 50% with a sniff. This suggests a high right atrial pressure of 15 mm Hg. Pericardium/ Pleura There is no pericardial effusion. There is no pleural effusion. MMode/2D Measurements & Calculations LVIDd: 4.6 cm LVOT diam: 2.2 cm LVIDs: 3.0 cm Ao root diam: 2.9 cm FS: 35.1 % asc Aorta Diam: 3.2 cm EPSS: 0.67 cm Ao Arch Diam (Prox Trans): 2.2 cm IVSd: 0.86 cm LVPWd: 1.0 cm LV rosales. diameter/BSA (cm/m^2): 2.5 LV sys. diameter/BSA (cm/m^2): 1.6 LA A2 area: 30.5 cm2 RA long axis: 5.4 cm LA A4 area: 27.3 cm2 RA area: 14.5 cm2 LA length (vol): 6.1 cm RA vol: 32.6 ml LA vol: 116.2 ml RA : 17.7 ml/m2 LA vol index: 62.9 ml/m2 IVC diam: 2.3 cm RVD1 (basal): 3.7 cm RVD2 (mid): 2.9 cm TAPSE: 2.2 cm Doppler Measurements & Calculations Ao V2 max: 172.9 cm/sec LVOT Max Jamie: 91.9 cm/sec Ao V2 mean: 122.1 cm/sec LV V1 max P.4 mmHg Ao max P.0 mmHg LV V1 VTI: 24.0 cm Ao mean P.6 mmHg PAUL(I,D): 2.0 cm2 Ao V2 VTI: 46.4 cm PAUL(V,D): 2.1 cm2 sev ratio: 0.52 PAUL indexed to BSA (cm^2/m^2): 1.1 AI P1/2t: 619.4 msec AI dec slope: 186.5 cm/sec2 MV E max jamie: 115.1 cm/sec TR max jamie: 256.7 cm/sec MV A max jamie: 136.5 cm/sec TR max P.4 mmHg MV E/A: 0.84 PA V2 max: 96.0 cm/sec Med Peak E' Jamie: 5.2 cm/sec PA V2 mean: 67.1 cm/sec E/E' med: 22.2 PA mean P.0 mmHg Lat Peak E' Jamie: 6.0 cm/sec PA pr(Accel): 20.8 mmHg E/E' lat: 19.3 E/e' average: 20.7 MV dec time: 0.34 sec MVA(VTI): 2.2 cm2 MV V2 mean: 79.5 cm/sec SV(LVOT): 93.1 ml MV mean P.9 mmHg MV V2 VTI: 42.4 cm Reading Physician:02:24 PM
== END ==
LOC: ECHO 08:59
PROVIDERS: PCP Family Medicine; Referring Provider Family Medicine; Visit Provider Family Medicine
DX: I08.3 Combined rheumatic disorders of mitral, aortic and tricuspid valves (principal); I11.0 Hypertensive heart disease with heart failure; I50.30 Unspecified diastolic (congestive) heart failure; I49.3 Ventricular premature depolarization
CPT/HCPCS: 93306

== ENCOUNTER → 2024-09-29 11:03 | Outpatient (CLI) | payer MEDICARE, OTHER, SELFPAY ==
[2021-09-30 10:00] VITALS: BMI 36.7
--- NOTE | 2024-09-29 | DI.MG.S_ITS ---
MM screening mammo BI: 09/29/2024. BI-RADS: 2 CLINICAL: 84-year old female for bilateral screening mammogram. Tyrer-Cuzick lifetime risk of 0.4%. No personal or first-degree family history of breast cancer. PRIOR EXAMS 08/31/2023, 07/17/2022, 04/19/2021, 12/29/2019, 11/12/2017, 11/06/2016, 09/27/2015. MAMMOGRAPHY TECHNIQUE: 2D and 3D (tomosynthesis) digital mammographic views obtained, with additional images as needed for full coverage. Current study was also evaluated with a Computer Aided Detection (CAD) system. DENSITY B. There are scattered areas of fibroglandular density. MAMMOGRAPHY FINDINGS Bilateral: Benign-appearing calcifications noted. There are no suspicious masses, calcifications, or other findings in the breast. No significant change from comparison. IMPRESSION: * No evidence of malignancy with benign findings. RECOMMENDATIONS Bilateral * Annual screening mammography. OVERALL ASSESSMENT CATEGORY BI-RADS-2: Benign. The [employer] recommends annual screening mammography beginning at age 40 for women with average risk of breast cancer. ELECTRONICALLY SIGNED: Meenu Meadows M.D. on 09/29/2024 at 04:17:16 PM PT Interpreting Station ID: [id number]
== END ==
PROVIDERS: PCP Family Medicine; Referring Provider Family Medicine; Visit Provider Family Medicine
DX: Z12.31 Encounter for screening mammogram for malignant neoplasm of breast (principal)
CPT/HCPCS: 77063; 77067

== ENCOUNTER → 2025-01-16 10:48 | Outpatient (CLI) | payer MEDICARE, OTHER, SELFPAY ==
[2021-09-30 10:00] VITALS: BMI 36.7
[2025-01-16 12:18] LABS: Hematocrit 34.6 % (36-46); Hemoglobin 11.7 g/dL (12.0-16.0); Mean Corpuscular HGB Conc 33.9 % (30-36); Mean Corpuscular Hemoglobin 29.7 PG (26-34); Mean Corpuscular Volume 87.5 fL (80-100); Platelet Count 225 X10^3/uL (150-400)
[2025-01-16 12:39] LABS: HEMOLYSIS < 15 (0-50); Iron 102 ug/dL (37-170)
[2025-01-16 12:50] LABS: Percent Iron Saturation 38 % (15-50); Total Iron Binding Capacity 270 ug/dL (265-497); Transferrin 228 mg/dL (206-381)
[2025-01-16 13:17] LABS: Eosinophils Percent Manual 6.0 % (2-4); Ferritin 29 ng/mL (11-264); Lymphocytes Percent Manual 18.0 % (25-45); Monocytes Percent Manual 6.0 % (2-11); Neutrophils Absolute Manual 5040 /uL (3000-5900); Segmented Neutrophils Percent 70.0 % (38-70); Total Cells Counted 100
[2025-01-16 13:19] LABS: RBC Morphology Normal Morphology
[2025-01-16 13:31] LABS: Vitamin B12 451 pg/mL (239-931)
[2025-01-16 14:15] LABS: Folate > 20.0 ng/mL (2.76-20.0)
== END ==
PROVIDERS: PCP Family Medicine; Referring Provider Family Medicine; Visit Provider Family Medicine
DX: D64.9 Anemia, unspecified (principal); N18.32 Chronic kidney disease, stage 3b
CPT/HCPCS: 36415; 82607; 82728; 82746; 83540; 83550; 85025

== ENCOUNTER 2025-02-09 20:26 | Inpatient (IN) | payer MEDICARE, OTHER, SELFPAY ==
[2021-09-30 10:00] VITALS: BMI 36.7
[2025-02-09 20:40] VITALS: BP 161/70; PULSE 68; RESP 18; TEMP 37.4; O2SAT 97; BMI 29.9
--- NOTE | 2025-02-09 20:46 | DI.RAD.S_ITS ---
PROCEDURE: XR CHEST 1V INDICATIONS: Chest Pain, N/V TECHNIQUE: One view of the chest was acquired. COMPARISON: [facility], CR, XR CHEST 2V, 02/24/2023, 12:14. FINDINGS: Surgical changes and devices: None. Lungs and pleura: Lungs are clear. No pleural effusions or pneumothorax. Mediastinum: Mediastinal contours appear normal. Heart size is normal. Bones and chest wall: No suspicious bony lesions. Overlying soft tissues appear unremarkable. IMPRESSION: No acute pulmonary process. Dictated by: Lore Medina M.D. on 02/09/2025 at 23:17 Approved by: Lore Medina M.D. on 02/09/2025 at 23:17
--- NOTE | 2025-02-09 20:46 | EKG_ITS ---
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
--- NOTE | 2025-02-09 21:16 | PC.NURSE ---
Pt self-cathed for urine specimen
[2025-02-09 21:17] LABS: Add Manual Diff / Slide Review NO; Hematocrit 33.5 % (36-46); Hemoglobin 11.2 g/dL (12.0-16.0); Lymphocytes Absolute Auto 700 /uL (1100-4500); Mean Corpuscular HGB Conc 33.5 % (30-36); Mean Corpuscular Hemoglobin 29.4 PG (26-34); Mean Corpuscular Volume 87.6 fL (80-100); Platelet Count 215 X10^3/uL (150-400)
[2025-02-09 21:22] LABS: Appearance Urine UA CLEAR; Bilirubin Urine UA NEGATIVE (NEGATIVE); Color Urine UA YELLOW; Glucose Urine UA NEGATIVE (Negative); Ketones Urine UA NEGATIVE (NEGATIVE); Leukocyte Esterase Urine UA 1+ (NEGATIVE); Nitrite Urine UA POSITIVE (Negative); Occult Blood Urine UA 3+ (Negative); Protein Urine UA 2+ (Negative); Specific Gravity Urine UA 1.015 (1.000-1.035); Urobilinogen Urine UA 0.2 E.U./dL (0.2)
[2025-02-09 21:27] LABS: pH Urine UA 5.5 (4.5-8.0)
[2025-02-09 21:30] LABS: Culture Indicated Urine Specimen Cultured
[2025-02-09 21:37] LABS: INR 1.0 (0.9-1.3); Prothrombin Time 11.5 SECONDS (9.4-12.5)
[2025-02-09 21:40] LABS: PTT Partial Thromboplastin Tim 28 SECONDS (25.1-36.5)
[2025-02-09 21:41] LABS: Alanine Aminotransferase 17 IU/L (<35); Albumin 3.9 g/dL (3.5-5.0); Albumin Globulin Ratio 1.3 (1.0-2.8); Alkaline Phosphatase 70 U/L (38-126); Blood Urea Nitrogen 52 mg/dL (7-17); Calcium 8.8 mg/dL (8.4-10.2); Carbon Dioxide 31 mmol/L (22-32); Chloride 102 mmol/L (98-107); Creatine Kinase 60 U/L (30-135); Estimated Glomerular Filt Rate 29 mL/min (>60); Globulin 3.0 g/dL (1.7-4.1); Glucose 140 mg/dL (70-99); HEMOLYSIS < 15 (0-50); Lipase 64 U/L (23-300); Magnesium 2.2 mg/dL (1.6-2.3); Potassium 3.5 mmol/L (3.4-5.1); Sodium 139 mmol/L (137-145); Total Protein 6.9 g/dL (6.3-8.2)
[2025-02-09 21:53] LABS: NT-proBNP (BNP-Adult 18+) 1850 pg/mL (<450); Troponin I 0.019 ng/mL (0.01-0.034)
[2025-02-09 23:00] VITALS: PULSE 88; RESP 16; O2SAT 97
[2025-02-09] MEDS: ONDANSETRON 4 MG/2 ML INJ IV (23:07)
--- NOTE | 2025-02-09 23:15 | ED.SEPSIS ---
HPI - Sepsis General Chief Complaint: Weakness Mode of arrival: Wheelchair Source: patient Limitations: no limitations Evaluation Sepsis Screen: No Definite Risk Sepsis Infection Criteria Present: None Narrative: 84-year-old female history of MS for which she intermittently self cath has been progressively getting weaker this past week and feeling fatigued and short of breath all along with increased dark urine that is cloudy and also nonproductive cough that started today along with a fever. She is nauseous but had no vomiting or diarrhea at this time and denies chest pain or belly pain or back pain. Other than what is stated 14 point review of system is negative. Review of Systems Review of Systems ROS Unobtainable: All systems reviewed & are unremarkable except as noted in HPI and below Patient History Medical History (Updated 02/10/25 @ 00:21 by Gigi Velasquez DO) Arthritis of left hip Facet arthropathy, lumbar Avascular necrosis of bone of left hip Auditory hallucinations Visual hallucinations Preoperative clearance Anxiety Eczema of both hands Blister Arthritis Frequent UTI GERD (gastroesophageal reflux disease) Edema Degenerative joint disease of spine RLS (restless legs syndrome) Multiple sclerosis Asthma Hyperlipidemia Hypertension Diastolic heart failure Urge and stress incontinence Retention of urine, unspecified Hypertension Surgical History Hx of tonsillectomy Status post bilateral cataract extraction S/P wrist surgery Hx of foot surgery H/O arthroscopic knee surgery Status post hysterectomy with oophorectomy Status post laparoscopic cholecystectomy Family History Father Congestive heart failure Emphysema Mother Lymphoma Social History marital status: household members: spouse Smoking Status: Former smoker alcohol intake: never substance use type: does not use Smoking Status: Former smoker alcohol intake frequency: 0-2 drinks per day Exam Narrative Exam Narrative: GENERAL: [84] year old patient appears stated age. Well-developed patient, in mild distress. HEAD: Atraumatic. Normocephalic. EYES: Pupils equal round and reactive. Extraocular motions intact. No scleral icterus. No injection or drainage. ENT: Nose without bleeding, purulent drainage. Throat without erythema, tonsillar hypertrophy or exudate. Airway patent. NECK: Trachea midline. Non tender CARDIOVASCULAR: Regular rate and rhythm without murmurs, gallops, or rubs. RESPIRATORY: Clear to auscultation. Breath sounds equal bilaterally. No wheezes, rales, or rhonchi. GASTROINTESTINAL: Abdomen soft, non-tender, nondistended. EXTREMITIES: No edema or joint tenderness. BACK: Nontender without deformity or crepitance. No flank tenderness. NEURO: AOx3. SKIN: No rash or erythema of visible areas Initial Vital Signs Initial Vital Signs: Vital Signs Temperature 99.4 F 02/09/25 20:40 Pulse Rate 68 02/09/25 20:40 Respiratory Rate 18 02/09/25 20:40 Blood Pressure 161/70 H 02/09/25 20:40 Pulse Oximetry 97 02/09/25 20:40 Oxygen Delivery Method Room Air 02/09/25 20:40 Course Orders Ordered: ED Orders 02/09/25 23:20 Blood Culture Stat 02/09/25 23:33 Lactate (Lactic Acid) Stat Acetaminophen (Acetaminophen 325 Mg Tablet) 650 mg PO Q6H PRN PRN Reason: Fever/Mild Pain (1-3) Last Admin: 02/09/25 23:33 Dose: 650 mg Documented By: SHERIDAN Discontinued Medications Lactated Ringer's (Lactated Ringers) 1,000 mls @ 1,000 mls/hr IV BOLUS ONE Stop: 02/10/25 00:17 Last Infusion: 02/10/25 00:43 Dose: Infused Documented By: Admin: 02/09/25 23:34 Dose: 1,000 mls/hr Documented By: SHERIDAN Ceftriaxone Sodium 2,000 mg/ (Sodium Chloride) 100 mls @ 200 mls/hr IV NOW ONE Stop: 02/09/25 23:19 Last Infusion: 02/10/25 00:43 Dose: Infused Documented By: Admin: 02/09/25 23:34 Dose: 200 mls/hr Documented By: SHERIDAN Ondansetron HCl (Ondansetron 4 Mg/2 Ml Inj) 4 mg IV NOW ONE Stop: 02/09/25 23:01 Last Admin: 02/09/25 23:07 Dose: 4 mg Documented By: SHERIDAN Vital Signs Vital signs: Vital Signs - 8 hr 02/09/25 23:00 02/09/25 23:18 02/09/25 23:18 Temperature 101.7 F H Pulse Rate 88 77 Respiratory Rate 16 16 Blood Pressure 184/76 H Pulse Oximetry 97 92 Oxygen Delivery Method Room Air Room Air Oxygen Flow Rate 02/09/25 23:30 02/09/25 23:30 02/10/25 00:00 Temperature Pulse Rate 81 Respiratory Rate 16 Blood Pressure 180/77 H 164/71 H Pulse Oximetry 91 Oxygen Delivery Method Room Air Oxygen Flow Rate 02/10/25 00:00 Temperature Pulse Rate 77 Respiratory Rate 20 Blood Pressure Pulse Oximetry 97 Oxygen Delivery Method Nasal Cannula Oxygen Flow Rate 2 Sepsis Evaluation (ED) Triage Screening Sepsis Screen: No Definite Risk Level 1 - Infection Sepsis Infection Criteria Present: None Response It is my opinion that this patient have a likely infectious etiology for meeting sepsis criteria: Does Not Fluid calculation based on 30 mL/kg within 1hr of criteria: N/A (Fluid bolus given) Antibiotics initiated within 1 hr of Sepis dx: Yes Tissue Perfusion Reassessed within 6 hrs of infusion start time: No MDM - Sepsis Lab Data 02/09/25 20:58 02/09/25 20:58 Labs: Lab Results 02/09/25 02/09/25 02/09/25 Range/Units 20:58 21:08 23:20 WBC 10.7 (4.5-11.0) X10^3/uL RBC 3.82 L (4.0-5.2) X10^6/uL Hgb 11.2 L (12.0-16.0) g/dL Hct 33.5 L (36-46) % MCV 87.6 (80-100) fL MCH 29.4 (26-34) PG MCHC 33.5 (30-36) % RDW 13.9 (11.6-14.8) % Plt Count 215 (150-400) X10^3/uL Neut % (Auto) 82.0 H (50-75) % Lymph % (Auto) 6.5 L (25-40) % [place] % (Auto) 9.7 (3-14) % Eos % (Auto) 1.1 L (2-4) % Baso % (Auto) 0.7 (0-2) % Neut # (Auto) 8800 H (8776-5261) /uL Lymph # (Auto) 700 L (6369-4795) /uL [place] # (Auto) 1000 H (0-900) /uL Eos # (Auto) 100 (0-450) /uL Baso # (Auto) 100 (0-100) /uL PT 11.5 (9.4-12.5) SECONDS INR 1.0 (0.9-1.3) APTT 28 (25.1-36.5) SECONDS Sodium 139 (137-145) mmol/L Potassium 3.5 (3.4-5.1) mmol/L Chloride 102 (98-107) mmol/L Carbon Dioxide 31 (22-32) mmol/L BUN 52 H (7-17) mg/dL Creatinine 1.73 H (0.52-1.04) mg/dL Estimated GFR 29 L (>60) mL/min BUN/Creatinine Ratio 30.1 H (6-22) Glucose 140 H (70-99) mg/dL Lactate (0.7-2.1) mmol/L Calcium 8.8 (8.4-10.2) mg/dL Magnesium 2.2 (1.6-2.3) mg/dL Total Bilirubin 0.5 (0.2-1.3) mg/dL AST 23 (14-36) IU/L ALT 17 (<35) IU/L Alkaline Phosphatase 70 (38-126) U/L Total Creatine Kinase 60 (30-135) U/L Troponin I 0.019 (0.01-0.034) ng/mL NT-Pro-B Natriuret Pep 1850 H (<450) pg/mL Total Protein 6.9 (6.3-8.2) g/dL Albumin 3.9 (3.5-5.0) g/dL Globulin 3.0 (1.7-4.1) g/dL Albumin/Globulin Ratio 1.3 (1.0-2.8) Lipase 64 (23-300) U/L Procalcitonin 0.191 (<0.5) ng/mL Urine Color Yellow Urine Appearance Clear Urine pH 5.5 (4.5-8.0) Ur Specific [place] 1.015 (1.000-1.035) Urine Protein 2+ H (Negative) Urine Glucose (UA) Negative (Negative) g/dL Urine Ketones Negative (NEGATIVE) Urine Occult Blood 3+ H (Negative) Urine Nitrate Positive H (Negative) Urine Bilirubin Negative (NEGATIVE) Urine Urobilinogen 0.2 (0.2) E.U./dL Ur Leukocyte Esterase 1+ H (NEGATIVE) Urine RBC 30-100/hpf H (0-5/HPF) Urine WBC 30-100/hpf H (0-5/HPF) Ur Squamous Epith Cells 1-5 /hpf (0-5/HPF) Amorphous Sediment 2+ Urine Bacteria Moderate (10-30) H (None) Ur Culture Indicated? Specimen cultured Vol Urine Centrifuged 10ml (spun) SARS-CoV-2 (PCR) Negative (Negative) Influenza A (RT-PCR) Flu a negative (NEGATIVE) Influenza B (RT-PCR) Flu b negative (NEGATIVE) RSV (PCR) Negative (Negative) 02/09/25 Range/Units 23:33 WBC (4.5-11.0) X10^3/uL RBC (4.0-5.2) X10^6/uL Hgb (12.0-16.0) g/dL Hct (36-46) % MCV (80-100) fL MCH (26-34) PG MCHC (30-36) % RDW (11.6-14.8) % Plt Count (150-400) X10^3/uL Neut % (Auto) (50-75) % Lymph % (Auto) (25-40) % [place] % (Auto) (3-14) % Eos % (Auto) (2-4) % Baso % (Auto) (0-2) % Neut # (Auto) (6802-9288) /uL Lymph # (Auto) (2937-5363) /uL [place] # (Auto) (0-900) /uL Eos # (Auto) (0-450) /uL Baso # (Auto) (0-100) /uL PT (9.4-12.5) SECONDS INR (0.9-1.3) APTT (25.1-36.5) SECONDS Sodium (137-145) mmol/L Potassium (3.4-5.1) mmol/L Chloride (98-107) mmol/L Carbon Dioxide (22-32) mmol/L BUN (7-17) mg/dL Creatinine (0.52-1.04) mg/dL Estimated GFR (>60) mL/min BUN/Creatinine Ratio (6-22) Glucose (70-99) mg/dL Lactate 0.9 (0.7-2.1) mmol/L Calcium (8.4-10.2) mg/dL Magnesium (1.6-2.3) mg/dL Total Bilirubin (0.2-1.3) mg/dL AST (14-36) IU/L ALT (<35) IU/L Alkaline Phosphatase (38-126) U/L Total Creatine Kinase (30-135) U/L Troponin I (0.01-0.034) ng/mL NT-Pro-B Natriuret Pep (<450) pg/mL Total Protein (6.3-8.2) g/dL Albumin (3.5-5.0) g/dL Globulin (1.7-4.1) g/dL Albumin/Globulin Ratio (1.0-2.8) Lipase (23-300) U/L Procalcitonin (<0.5) ng/mL Urine Color Urine Appearance Urine pH (4.5-8.0) Ur Specific [place] (1.000-1.035) Urine Protein (Negative) Urine Glucose (UA) (Negative) g/dL Urine Ketones (NEGATIVE) Urine Occult Blood (Negative) Urine Nitrate (Negative) Urine Bilirubin (NEGATIVE) Urine Urobilinogen (0.2) E.U./dL Ur Leukocyte Esterase (NEGATIVE) Urine RBC (0-5/HPF) Urine WBC (0-5/HPF) Ur Squamous Epith Cells (0-5/HPF) Amorphous Sediment Urine Bacteria (None) Ur Culture Indicated? Vol Urine Centrifuged SARS-CoV-2 (PCR) (Negative) Influenza A (RT-PCR) (NEGATIVE) Influenza B (RT-PCR) (NEGATIVE) RSV (PCR) (Negative) ECG Data Interpretation: SR with occasional PVC LAD HR 65 KS 204 QRS [address]-t wave change Change from 03/16/18 [facility] Narrative Medical decision making narrative: All lab work, vital signs, nurse triage note, medication list, previous ER visits, and all imaging studies reviewed. Patient given tylenol, lactated Ringer's 1 L bolus along with Rocephin 2 g IV here. BUN 52 creatinine 1.73 BNP 1850 troponin normal, procalcitonin 0.191. Chest x-ray showed no acute process. Differential diagnosis includes sepsis UTI pneumonia COVID flu RSV. Case discussed with Dr. Kaplan who has graciously accepted the patient for inpatient admission. Discharge Plan Departure Patient Disposition: Admitted As Inpatient Clinical Impression: Acute UTI, BRYANNA (acute kidney injury) Admit Date/Time: 02/10/25 00:18 Admit Provider: Gigi Kaplan
[2025-02-09 23:18] VITALS: BP 184/76; PULSE 77; RESP 16; TEMP 38.7; O2SAT 92
[2025-02-09 23:30] VITALS: BP 180/77; PULSE 81; RESP 16; O2SAT 91
[2025-02-09] MEDS: ACETAMINOPHEN 325 MG TABLET 650 MG PO (23:33)
[2025-02-09] MEDS: LACTATED RINGERS 1,000 ML 1000 ML IV (23:34)
[2025-02-09] MEDS: cefTRIAXone 2,000 MG in SODIUM CHLORIDE 0.9% 100 ML 200 MG IV (23:34)
[2025-02-09 23:55] LABS: Lactate (Lactic Acid) 0.9 mmol/L (0.7-2.1)
[2025-02-09 23:57] LABS: Procalcitonin 0.191 ng/mL (<0.5)
[2025-02-10] VITALS (39 sets, daily range): BP systolic 114–164; BP diastolic 45–123; PULSE 58–79; RESP 14–26; TEMP 36.6–37.4; O2SAT 91–100; BMI 30.1
--- NOTE | 2025-02-10 00:20 | PC.NURSE ---
pt transferred from ED stretcher due to boarding in the ED for pt admission. Brief was changed, pericare was performed. Purewick was also placed at this time. Bed in low position, both side rails up and call light within reach of pt. TANIA rangel
[2025-02-10 04:38] LABS: Influenza A - CEPHEID Flu A NEGATIVE (NEGATIVE); Influenza B - CEPHEID Flu B NEGATIVE (NEGATIVE)
[2025-02-10 04:51] LABS: COVID-19 CEPHEID 4-PLEX PCR Negative (Negative)
--- NOTE | 2025-02-10 08:38 | PC.NURSE ---
This RN given in report that patient required oxymask at 4L while patient was sleeping and that they breathe primarily through the mouth. Patient is now awake and denies wearing oxygen at home. This RN removed oxymask and patient oxygenation remained within normal limits.
--- NOTE | 2025-02-10 08:50 | PM.HP.IH.1 ---
History of Present Illness History of Present Illness Date Patient Seen: 02/10/25 Time Patient Seen: 09:28 Chief complaint: Generalized weakness and fatigue Narrative: 84-year-old female with a past medical history of multiple sclerosis urinary retention with self catheterization chronic renal failure congestive heart failure hypertension hyperlipidemia neuropathy and restless legs syndrome presents to the emergency department with fatigue. Patient states she always has fatigue and is always tired. She had family over last evening they were playing a game. And patient was falling asleep while they were playing a game. She told them that she was quite tired but more so than normal. They were concerned and brought her to the emergency department for evaluation. Patient denies any difficulty with recent fevers or chills. She says she is always weak and has a hard time ambulating. She has some breathlessness. She has not complaining of headaches difficulty with swallowing abdominal pain. Patient has some mild joint pain in her back and hips. Patient generally walks with a walker. She has not had a fall. She is incontinent of urine. This has been more so over the last few days. She does self-catheterize. She has on occasion had urinary tract infections but generally does very well with this. She has having no concerns with bowel movements. She is eating well. She has a at home and lives at home has a very supportive family. [facility] Medical History (Updated 02/10/25 @ 00:21 by Gigi Velasquez DO) Arthritis of left hip Facet arthropathy, lumbar Avascular necrosis of bone of left hip Auditory hallucinations Visual hallucinations Preoperative clearance Anxiety Eczema of both hands Blister Arthritis Frequent UTI GERD (gastroesophageal reflux disease) Edema Degenerative joint disease of spine RLS (restless legs syndrome) Multiple sclerosis Asthma Hyperlipidemia Hypertension Diastolic heart failure Urge and stress incontinence Retention of urine, unspecified Hypertension Surgical History Hx of tonsillectomy Status post bilateral cataract extraction S/P wrist surgery Hx of foot surgery H/O arthroscopic knee surgery Status post hysterectomy with oophorectomy Status post laparoscopic cholecystectomy Family History Father Congestive heart failure Emphysema Mother Lymphoma Social History marital status: household members: spouse Smoking Status: Former smoker alcohol intake: never substance use type: does not use Meds Home Medications and Allergies Home Medications ?Medication ?Instructions ?Recorded ?Confirmed ?Type aspirin 81 mg tablet,delayed 81 mg PO BEDTIME ##0 11/08/12 01/16/25 History release (Aspir-) coenzyme Q10 300 mg capsule 300 mg PO DAILY ##0 03/16/13 01/16/25 History multivitamin (Multiple Vitamins 1 tab PO QDAY #0 tabs 05/09/16 01/16/25 History tablet) vit C 50 mg-E 15 unit-zinc cit 4.5 1 tab PO DAILY 12/13/18 01/16/25 History mg-lutein 2.5 mg-zeaxan chew tablet (Clicks for a Cause) vitamin B complex 1 tab PO DAILY 12/13/18 01/16/25 History calcium 250 mg-magnesium 40 mg-D3 1 tab PO DAILY 10/04/20 01/16/25 History 125 unit-zinc 3.89lw-reg-oiph tablet (Calcium Citrate Plus) DISABLED PARKING PERMIT #1 ea 09/30/21 01/16/25 Rx acetaminophen 500 mg capsule 1,000 mg PO Q6H PRN 09/30/21 01/16/25 History bisacodyl 5 mg tablet,delayed 5 mg PO ONCE PRN constipation 09/30/21 01/16/25 History release (Gentle Laxative (bisacodyl)) cholecalciferol (vitamin D3) 125 125 mcg PO DAILY 09/30/21 01/16/25 History mcg (5,000 unit) capsule albuterol sulfate 90 mcg/actuation 2 puff inhalation Q4HP PRN Asthma 10/23/22 01/16/25 Rx aerosol inhaler (Ventolin HFA) #18 grams potassium chloride 20 mEq 20 meq PO QDAY #90 tabs 10/23/22 01/16/25 Rx tablet,extended release(part/cryst) (Klor-Con M) clobetasol 0.05 % topical ointment 1 applic topical DAILY 4 weeks #45 11/02/23 01/16/25 Rx grams amlodipine 5 mg tablet 5 mg PO BID #180 tabs 09/16/24 01/16/25 Rx furosemide 20 mg tablet 20 mg PO BID #180 tabs 09/16/24 01/16/25 Rx telmisartan 80 1 tab PO DAILY #90 tabs 10/04/24 01/16/25 Rx mg-hydrochlorothiazide 25 mg tablet (Micardis HCT) sertraline 50 mg tablet 50 mg PO DAILY #90 tabs 10/10/24 01/16/25 Rx metoprolol succinate 50 mg 50 mg PO BID #180 tabs 10/19/24 01/16/25 Rx tablet,extended release 24 hr simvastatin 40 mg tablet 40 mg PO QPM #90 tabs 10/19/24 01/16/25 Rx baclofen 10 mg tablet 10 mg PO BEDTIME PRN spasms #90 01/02/25 01/16/25 Rx tabs Allergies Allergy/AdvReac Type Severity Reaction Status Date / Time adhesive tape (ADHESIVE TAPE) Allergy Severe Blisters Verified 02/09/25 20:41 amoxicillin (From AUGMENTIN) Allergy Severe SWELLING Verified 02/09/25 20:41 clavulanic acid (From Allergy Severe SWELLING Verified 02/09/25 20:41 AUGMENTIN) codeine (CODEINE) Allergy Severe ITCHY Verified 02/09/25 20:41 SKIN, RED AND PEELED povidone-iodine Allergy Severe BLISTERS Verified 02/09/25 20:41 (POVIDONE-IODINE) SKIN Sulfa (Sulfonamide Allergy Severe ITCHY Verified 02/09/25 20:41 Antibiotics) (SULFA SKIN, RED (SULFONAMIDE ANTIBIOTICS)) AND PEELED vancomycin (VANCOMYCIN) Allergy Severe ITCHING Verified 02/09/25 20:41 AND BURNING Exam Vital Signs (past 8 hours): - 02/10/25 00:57 02/10/25 00:57 02/10/25 01:00 Pulse Rate 75 Respiratory Rate 20 Blood Pressure 162/65 H 148/66 H Pulse Oximetry 94 Oxygen Delivery Method Nasal Cannula Oxygen Flow Rate 2 02/10/25 01:00 02/10/25 01:30 02/10/25 01:30 Pulse Rate 77 79 Respiratory Rate Blood Pressure 141/68 H Pulse Oximetry 91 92 Oxygen Delivery Method Nasal Cannula Nasal Cannula Oxygen Flow Rate 2 2 02/10/25 02:00 02/10/25 02:00 02/10/25 02:30 Pulse Rate 79 Respiratory Rate Blood Pressure 133/62 131/60 Pulse Oximetry 92 Oxygen Delivery Method Nasal Cannula Oxygen Flow Rate 2 02/10/25 02:30 02/10/25 03:00 02/10/25 03:00 Pulse Rate 79 71 Respiratory Rate 20 Blood Pressure 137/61 Pulse Oximetry 97 97 Oxygen Delivery Method Oximask Oximask Oxygen Flow Rate 2 2 02/10/25 03:30 02/10/25 03:30 02/10/25 04:00 Pulse Rate 71 Respiratory Rate 20 Blood Pressure 122/57 L 119/56 L Pulse Oximetry 99 Oxygen Delivery Method Oximask Oxygen Flow Rate 3 02/10/25 04:00 02/10/25 04:30 02/10/25 04:30 Pulse Rate 66 64 Respiratory Rate Blood Pressure 121/78 Pulse Oximetry 99 99 Oxygen Delivery Method Oxygen Flow Rate 02/10/25 05:00 02/10/25 05:00 02/10/25 05:30 Pulse Rate 65 Respiratory Rate Blood Pressure 131/60 124/58 L Pulse Oximetry 97 Oxygen Delivery Method Oxygen Flow Rate 02/10/25 05:30 02/10/25 06:00 02/10/25 06:00 Pulse Rate 63 62 Respiratory Rate Blood Pressure 122/77 Pulse Oximetry 97 98 Oxygen Delivery Method Oximask Oxygen Flow Rate 4 02/10/25 06:30 02/10/25 06:30 02/10/25 07:00 Pulse Rate 60 60 Respiratory Rate 15 16 Blood Pressure 114/56 L Pulse Oximetry 99 98 Oxygen Delivery Method Oximask Oxygen Flow Rate 4 02/10/25 07:01 02/10/25 07:01 02/10/25 07:30 Pulse Rate 60 58 L Respiratory Rate 15 14 Blood Pressure 138/63 Pulse Oximetry 99 99 Oxygen Delivery Method Oximask Oxygen Flow Rate 4 02/10/25 07:30 02/10/25 08:00 02/10/25 08:30 Pulse Rate 64 59 L Respiratory Rate 19 14 Blood Pressure 120/80 Pulse Oximetry 99 100 Oxygen Delivery Method Oximask Oximask Oxygen Flow Rate 4 4 02/10/25 08:31 02/10/25 08:31 Pulse Rate 60 Respiratory Rate 15 Blood Pressure 156/76 H Pulse Oximetry 99 Oxygen Delivery Method Oximask Oximask Oxygen Flow Rate 4 4 Oxygen Delivery Method Oximask Oxygen Flow Rate 4 Narrative Exam Narrative: Gen.: Alert resting comfortably in bed patient is a good historian HEENT: Pupils equal round and reactive to light oral mucosa is dry neck is supple Cardio: Regular rate and rhythm no murmurs Respiratory: Lungs show normal respiratory effort. Patient has intermittent cough no wheezing Abdomen: Soft nontender no appreciated organomegaly Extremities: Some lower extremity edema Objective Labs 02/10/25 09:18 02/09/25 20:58 Labs: Laboratory Results - last 24 hr 02/09/25 02/09/25 02/09/25 20:58 21:08 23:20 WBC 10.7 RBC 3.82 L Hgb 11.2 L Hct 33.5 L MCV 87.6 MCH 29.4 MCHC 33.5 RDW 13.9 Plt Count 215 Neut % (Auto) 82.0 H Lymph % (Auto) 6.5 L [place] % (Auto) 9.7 Eos % (Auto) 1.1 L Baso % (Auto) 0.7 Neut # (Auto) 8800 H Lymph # (Auto) 700 L [place] # (Auto) 1000 H Eos # (Auto) 100 Baso # (Auto) 100 PT 11.5 INR 1.0 APTT 28 Sodium 139 Potassium 3.5 Chloride 102 Carbon Dioxide 31 BUN 52 H Creatinine 1.73 H Estimated GFR 29 L BUN/Creatinine Ratio 30.1 H Glucose 140 H Lactate Calcium 8.8 Magnesium 2.2 Total Bilirubin 0.5 AST 23 ALT 17 Alkaline Phosphatase 70 Total Creatine Kinase 60 Troponin I 0.019 NT-Pro-B Natriuret Pep 1850 H Total Protein 6.9 Albumin 3.9 Globulin 3.0 Albumin/Globulin Ratio 1.3 Lipase 64 Procalcitonin 0.191 Urine Color Yellow Urine Appearance Clear Urine pH 5.5 Ur Specific [place] 1.015 Urine Protein 2+ H Urine Glucose (UA) Negative Urine Ketones Negative Urine Occult Blood 3+ H Urine Nitrate Positive H Urine Bilirubin Negative Urine Urobilinogen 0.2 Ur Leukocyte Esterase 1+ H Urine RBC 30-100/hpf H Urine WBC 30-100/hpf H Ur Squamous Epith Cells 1-5 /hpf Amorphous Sediment 2+ Urine Bacteria Moderate (10-30) H Ur Culture Indicated? Specimen cultured Vol Urine Centrifuged 10ml (spun) SARS-CoV-2 (PCR) Negative Influenza A (RT-PCR) Flu a negative Influenza B (RT-PCR) Flu b negative RSV (PCR) Negative 02/09/25 23:33 WBC RBC Hgb Hct MCV MCH MCHC RDW Plt Count Neut % (Auto) Lymph % (Auto) [place] % (Auto) Eos % (Auto) Baso % (Auto) Neut # (Auto) Lymph # (Auto) [place] # (Auto) Eos # (Auto) Baso # (Auto) PT INR APTT Sodium Potassium Chloride Carbon Dioxide BUN Creatinine Estimated GFR BUN/Creatinine Ratio Glucose Lactate 0.9 Calcium Magnesium Total Bilirubin AST ALT Alkaline Phosphatase Total Creatine Kinase Troponin I NT-Pro-B Natriuret Pep Total Protein Albumin Globulin Albumin/Globulin Ratio Lipase Procalcitonin Urine Color Urine Appearance Urine pH Ur Specific [place] Urine Protein Urine Glucose (UA) Urine Ketones Urine Occult Blood Urine Nitrate Urine Bilirubin Urine Urobilinogen Ur Leukocyte Esterase Urine RBC Urine WBC Ur Squamous Epith Cells Amorphous Sediment Urine Bacteria Ur Culture Indicated? Vol Urine Centrifuged SARS-CoV-2 (PCR) Influenza A (RT-PCR) Influenza B (RT-PCR) RSV (PCR) Assessment & Plan Assessment and plan (1) BRYANNA (acute kidney injury): Status: Acute (2) Acute UTI: Status: Acute (3) Chronic renal failure (CRF), stage 3b: Status: Acute (4) Multiple sclerosis: Status: Chronic (5) Congestive heart failure with left ventricular diastolic dysfunction, NYHA class 1: Status: Chronic (6) Essential hypertension: Status: Chronic (7) Urinary retention: Status: Chronic (8) Restless legs syndrome: Status: Chronic Plan 84-year-old female with history of MS chronic kidney disease urinary incontinence and self catheterization comes in with complaints of increasing weakness tiredness and fatigue noticed by patient and family. Patient's laboratory testing shows no elevation of white blood cell count some mild chronic anemia worsening of her chronic with a creatinine of 1.7 baseline is 1.0-1.2 patient has chronically elevated BNP of 1 850 procalcitonin was 0.191 urinalysis shows blood white blood cell counts and nitrate positive and bacteria. Urinary tract infection patient with acute urinary tract infection presumed due to chronic self catheterization due to MS. Urine culture has been sent. And pending. Review of previous cultures show Gram-negative bacilli Klebsiella which sensitivities show baez sensitivity without significant resistance. Will go ahead and continue with ceftriaxone 2 g IV Q 24 hours. She reviewed 1st dose in the emergency department. Will monitor white blood cell count temperature and blood pressure to make sure patient has not progressed to systemic infection. Acute kidney injury. Patient with chronic baseline chronic renal failure. Creatinine is significantly elevated above baseline due to presumed bladder possible kidney infection. Patient will be given IV fluid support. Will monitor blood pressure. Monitor closely electrolytes. Hopefully with hydration and fluid support her kidney function were returned back to baseline. Also expect improvement with treatment of underlying infection. Suspected component of dehydration as well. Multiple sclerosis. Patient with chronic multiple sclerosis. No acute exacerbations at this time has some chronic weakness muscle spasms and restless leg associated with this. Patient will be monitored and treated with appropriate medications. Does not currently need steroids. Congestive heart failure systolic. Patient with the physical exam findings consistent with euvolemia although her BNP is elevated. Will be do judicious on her IV fluids and stopped them later today to prevent fluid overload. Will monitor closely respiratory rate last echocardiogram outpatient showed normal LV size and function at 60%. She has dilation of her left atrial which is severe. Hypertension. Patient is hypertensive. Will continue antihypertensive medication in the hospital. Monitor blood pressure closely. Hyperlipidemia. Patient currently on simvastatin this will be continued during her hospital stay. Depression continue with sertraline DVT prophylaxis with Lovenox Disposition and plan. Anticipate hospitalization greater than 2 midnights for control of infection and improved kidney function. Anticipate patient to be discharged home potentially as early as tomorrow. Patient will need home health at discharge. Time-Based Coding :: [TOTAL MINUTES] spent with patient and on the chart (including review of chart, obtaining history, exam, reviewing outside data, placing orders, documenting exam and treatment plan, and counseling patient) on [DATE]. PROFEE Glove Examiner Document charge(s): Yes Charge Codes Initial inpatient/observation care: 76033
[2025-02-10] MEDS: AMLODIPINE 5 MG TABLET PO ×2 (08:53→20:52)
[2025-02-10] MEDS: SODIUM CHLORIDE 0.9% 1,000 ML 125 ML IV ×2 (09:02→20:56)
[2025-02-10 09:22] LABS: Add Manual Diff / Slide Review NO; Hematocrit 34.2 % (36-46); Hemoglobin 11.4 g/dL (12.0-16.0); Lymphocytes Absolute Auto 1200 /uL (1100-4500); Mean Corpuscular HGB Conc 33.3 % (30-36); Mean Corpuscular Hemoglobin 29.3 PG (26-34); Mean Corpuscular Volume 88.1 fL (80-100); Platelet Count 201 X10^3/uL (150-400)
[2025-02-10] MEDS: METOPROLOL ER 50 MG TABLET PO ×2 (09:23→20:52)
[2025-02-10] MEDS: VALSARTAN 80 MG TABLET 160 MG PO (09:23)
[2025-02-10] MEDS: CHOLECALCIFEROL (VITAMIN D3) 5,000 UNIT TABLET 5000 UNIT PO (09:24)
[2025-02-10] MEDS: SERTRALINE 50 MG TABLET PO (09:24)
[2025-02-10] MEDS: DOCUSATE 100 MG CAPSULE PO ×2 (09:27→20:52)
[2025-02-10] MEDS: ENOXAPARIN 30 MG/0.3 ML SYRINGE SUBCUT (09:32)
[2025-02-10 09:33] LABS: Alanine Aminotransferase 17 IU/L (<35); Albumin 3.6 g/dL (3.5-5.0); Albumin Globulin Ratio 1.2 (1.0-2.8); Alkaline Phosphatase 64 U/L (38-126); Blood Urea Nitrogen 49 mg/dL (7-17); Calcium 8.6 mg/dL (8.4-10.2); Carbon Dioxide 28 mmol/L (22-32); Chloride 104 mmol/L (98-107); Estimated Glomerular Filt Rate 37 mL/min (>60); Globulin 2.9 g/dL (1.7-4.1); Glucose 110 mg/dL (70-99); HEMOLYSIS < 15 (0-50); Potassium 3.4 mmol/L (3.4-5.1); Sodium 139 mmol/L (137-145); Total Protein 6.5 g/dL (6.3-8.2)
--- NOTE | 2025-02-10 17:30 | PC.NURSE ---
Patient admitted for uti and weakness. She has acute kidney issues per PROTECTION ENGINEER. She is alert and oriented x4, iv started to l.forearm. She has iv ns infusing at 125cc. Nauseated and had an emesis of 300cc earlier. Fell asleep and she denies any further nausea. Skin check done and in physical assessment
[2025-02-10] MEDS: POTASSIUM CHLORIDE 20 MEQ TAB 40 MEQ PO (17:45)
[2025-02-10] MEDS: ACETAMINOPHEN 325 MG TABLET 650 MG PO (18:23)
[2025-02-10] MEDS: ASPIRIN EC 81 MG TABLET PO (20:52)
[2025-02-10] MEDS: ATORVASTATIN 20 MG TABLET 40 MG PO (20:53)
[2025-02-10] MEDS: cefTRIAXone 2,000 MG in SODIUM CHLORIDE 0.9% 100 ML 200 MG IV (21:26)
[2025-02-11 05:17] LABS: Blood Urea Nitrogen 40 mg/dL (7-17); Calcium 8.2 mg/dL (8.4-10.2); Carbon Dioxide 28 mmol/L (22-32); Chloride 104 mmol/L (98-107); Estimated Glomerular Filt Rate 45 mL/min (>60); Glucose 113 mg/dL (70-99); HEMOLYSIS < 15 (0-50); Potassium 3.7 mmol/L (3.4-5.1); Sodium 136 mmol/L (137-145)
[2025-02-11 07:38] VITALS: O2SAT 96
[2025-02-11 08:00] VITALS: BP 157/43; PULSE 62; RESP 17; TEMP 36.6; O2SAT 93
[2025-02-11 08:45] VITALS: BP 157/43; PULSE 61
[2025-02-11] MEDS: DOCUSATE 100 MG CAPSULE PO (08:45)
[2025-02-11] MEDS: VALSARTAN 80 MG TABLET 160 MG PO (08:45)
[2025-02-11] MEDS: CHOLECALCIFEROL (VITAMIN D3) 5,000 UNIT TABLET 5000 UNIT PO (08:45)
[2025-02-11] MEDS: METOPROLOL ER 50 MG TABLET PO (08:45)
[2025-02-11] MEDS: SERTRALINE 50 MG TABLET PO (08:46)
[2025-02-11] MEDS: ENOXAPARIN 30 MG/0.3 ML SYRINGE SUBCUT (08:46)
[2025-02-11] MEDS: AMLODIPINE 5 MG TABLET PO (08:46)
--- NOTE | 2025-02-11 11:46 | PM.DS.IH.1 ---
History of Present Illness History of Present Illness Date Patient Seen: 02/11/25 Time Patient Seen: 11:28 Chief complaint: Generalized weakness and fatigue Narrative: 84-year-old female with a past medical history of multiple sclerosis urinary retention with self catheterization chronic renal failure congestive heart failure hypertension hyperlipidemia neuropathy and restless legs syndrome presents to the emergency department with fatigue. Patient states she always has fatigue and is always tired. She had family over last evening they were playing a game. And patient was falling asleep while they were playing a game. She told them that she was quite tired but more so than normal. They were concerned and brought her to the emergency department for evaluation. Patient denies any difficulty with recent fevers or chills. She says she is always weak and has a hard time ambulating. She has some breathlessness. She has not complaining of headaches difficulty with swallowing abdominal pain. Patient has some mild joint pain in her back and hips. Patient generally walks with a walker. She has not had a fall. She is incontinent of urine. This has been more so over the last few days. She does self-catheterize. She has on occasion had urinary tract infections but generally does very well with this. She has having no concerns with bowel movements. She is eating well. She has a at home and lives at home has a very supportive family. Discharge Providers Provider Date of admission: 02/10/25 00:18 Discharge Date: 02/11/25 Primary care physician: James Perez MD Discharge provider: James Garcia MD Summary Hospital Course Discharge Diagnosis: #UTI #BRYANNA #CKD 3b #multiple sclerosis #CHF #hypertension #hyperlipidemia #urinary retention #depression Hospital Course: Admitted for UTI and acute on chronic kidney injury in the setting of increased weakness and fatigue over preceding days. Urine culture grew pansensitive E coli. No leukocytosis on admission. Received IV ceftriaxone x2 doses before discharging home on ciprofloxacin 500 mg b.i.d. for an additional 3 days. Antibiotic selection somewhat limited due to CKD and multiple reported patient allergies to first-line medications. Status at Discharge Cognitive/behavioral status at discharge: at baseline, oriented Functional status at discharge: independent ambulation Overall status at discharge: patient is back to baseline Time Spent with Patient Time spent: Less than 30 minutes Exam Vital Signs (past 8 hours): - 02/11/25 07:38 02/11/25 08:00 02/11/25 08:45 Temperature 97.8 F Pulse Rate 62 61 Respiratory Rate 17 Blood Pressure 157/43 H 157/43 H Pulse Oximetry 96 93 Oxygen Delivery Method Room Air Oxygen Flow Rate 0 Oxygen Delivery Method Room Air Oxygen Flow Rate 0 Narrative Exam Narrative: General: Pleasant, NAD HEENT: NC/AT, EOMI, moist membranes CV: RRR, normal S1-S2, no m/g/r Resp: CTAB, comfortable WOB Abd: Soft, NTND, +BS Ext: No edema Skin: No rash or lesions noted Neuro: A&O x3, moves all extremities, no focal deficits Objective Labs 02/10/25 09:18 02/11/25 04:20 Labs: Laboratory Results - last 24 hr 02/11/25 04:20 Sodium 136 L Potassium 3.7 Chloride 104 Carbon Dioxide 28 BUN 40 H Creatinine 1.21 H Estimated GFR 45 L BUN/Creatinine Ratio 33.1 H Glucose 113 H Calcium 8.2 L PFSH Medical History (Updated 02/10/25 @ 00:21 by Gigi Velasquez DO) Arthritis of left hip Facet arthropathy, lumbar Avascular necrosis of bone of left hip Auditory hallucinations Visual hallucinations Preoperative clearance Anxiety Eczema of both hands Blister Arthritis Frequent UTI GERD (gastroesophageal reflux disease) Edema Degenerative joint disease of spine RLS (restless legs syndrome) Multiple sclerosis Asthma Hyperlipidemia Hypertension Diastolic heart failure Urge and stress incontinence Retention of urine, unspecified Hypertension Surgical History Hx of tonsillectomy Status post bilateral cataract extraction S/P wrist surgery Hx of foot surgery H/O arthroscopic knee surgery Status post hysterectomy with oophorectomy Status post laparoscopic cholecystectomy Family History Father Congestive heart failure Emphysema Mother Lymphoma Social History marital status: household members: spouse Smoking Status: Former smoker alcohol intake: former substance use type: does not use Discharge Assessment & Plan Assessment and Plan Assessment: 84-year-old female with a history of MS, CKD, urinary incontinence with self catheterization admitted for UTI and acute kidney injury. Plan of Treatment: #UTI -s/p IV ceftriaxone (02/09-8/1) -ciprofloxacin 500 mg b.i.d. x3 days (02/11-02/13) #BRYANNA #CKD 3b -renal function back to baseline s/p IV fluid hydration # MS #restless leg -no acute exacerbation during admission #CHF -home metoprolol, furosemide #hypertension -home amlodipine, telmisartan-HCTZ #hyperlipidemia -home atorvastatin #depression -home sertraline Discharge Plan Discharge Plan Patient Disposition: Home Discharge orders & Medications Prescriptions: New ciprofloxacin HCl 500 mg tablet 500 mg PO BID Qty: 6 0RF Continued Calcium Citrate Plus [id number] [id number]-[id number]-mg tablet 1 tab PO DAILY (DME) DISABLED PARKING PERMIT See Rx Instructions .ROUTE .MEDSUPPLY Qty: 1 0RF Rx Instructions: I find this patient to be medically disabled and qualified for disabled parking as indicated, and signed, on the accompanying Disabled Parking Application for Individuals. acetaminophen 500 mg capsule 1,000 mg PO Q6H PRN cholecalciferol (vitamin D3) 125 mcg (5,000 unit) capsule 125 mcg PO DAILY bisacodyl [Gentle Laxative (bisacodyl)] 5 mg tablet,delayed release (DR/EC) 5 mg PO ONCE PRN (Reason: constipation) Ocuvite Eye Health 50 mg-15 unit- 4.5 mg-2.5 mg tablet,chewable 1 tab PO DAILY vitamin B complex tablet 1 tab PO DAILY aspirin [Aspir-81] 81 mg Tablet,Delayed Release (Dr/Ec) 81 mg PO BEDTIME Qty: 0 coenzyme Q10 300 mg Capsule 300 mg PO DAILY Qty: 0 multivitamin [Multiple Vitamins] 1 EACH tablet 1 tab PO QDAY Qty: 0 albuterol sulfate [Ventolin HFA] 90 mcg/actuation HFA aerosol inhaler 2 puff inhalation Q4HP PRN (Reason: Asthma) Qty: 18 4RF potassium chloride [Klor-Con M20] 20 mEq tablet,ER particles/crystals 20 meq PO QDAY Qty: 90 3RF furosemide 20 mg tablet 20 mg PO BID Qty: 180 3RF amlodipine 5 mg tablet 5 mg PO BID Qty: 180 3RF telmisartan-hydrochlorothiazid [Micardis HCT] 80-25 mg tablet 1 tab PO DAILY Qty: 90 3RF sertraline 50 mg tablet 50 mg PO DAILY Qty: 90 3RF simvastatin 40 mg tablet 40 mg PO QPM Qty: 90 3RF metoprolol succinate 50 mg tablet extended release 24 hr 50 mg PO BID Qty: 180 3RF baclofen 10 mg tablet 10 mg PO BEDTIME PRN (Reason: spasms) Qty: 90 3RF clobetasol 0.05 % ointment 1 applic topical DAILY 28 Days Qty: 45 1RF Follow up/Referrals: James Perez MD [Primary Care Provider, Family Practice] Visit Report/Discharge Packet Stand Alone Forms: Patient Portal/API, Stroke Signs & Symptoms Discharge Data Primary Care Provider: James Perez Discharges patient from system. Discharge Date/Time: 02/11/25 13:01 Quality VTE Deep Vein Thrombosis/Pulmonary Embolism Present on Admission: No IH PROFEE Charge Codes Discharge inpatient/observation: [id number]
--- NOTE | 2025-02-11 12:54 | PC.NURSE ---
Discharge note: Patient up OOB to [facility] via [facility], ambulating with CGA. Voiding and had BM this shift. States, strenght is significantly improved. At baseline per mobility. Discharge instructions given to patient, discussed importance of F/U with Dr. Perez, antibiotic adherence, and signs of worsening symptoms. Home via private vehicle accompanied by daughter. Rx to be picked up on way to home.
== END 2025-02-11 13:01 | disposition home or self-care (01) | DRG 699 ==
LOC: ED 20:36 → AC 02-10 00:18 → ICU 02-10 11:07 → AC 02-10 11:25
PROVIDERS: Admitting Provider Internal Medicine; Emergency Provider Family Medicine; PCP Family Medicine; Referring Provider Family Medicine; Visit Provider Family Medicine
DX: T83.518A Infection and inflammatory reaction due to other urinary catheter, initial encounter (principal); I13.0 Hypertensive heart and chronic kidney disease with heart failure and stage 1 through stage 4 chronic kidney disease, or unspecified chronic kidney disease; I50.22 Chronic systolic (congestive) heart failure; N39.0 Urinary tract infection, site not specified; N17.9 Acute kidney failure, unspecified; G35 Multiple sclerosis; N18.31 Chronic kidney disease, stage 3a; G25.81 Restless legs syndrome; R33.9 Retention of urine, unspecified; E86.0 Dehydration; E78.5 Hyperlipidemia, unspecified; F32.A Depression, unspecified; B96.20 Unspecified Escherichia coli [E. coli] as the cause of diseases classified elsewhere; R32 Unspecified urinary incontinence; J45.909 Unspecified asthma, uncomplicated; Y73.1 Therapeutic (nonsurgical) and rehabilitative gastroenterology and urology devices associated with adverse incidents; Z87.891 Personal history of nicotine dependence
CPT/HCPCS: 36415; 71045; 80048; 80053; 81001; 82550; 83605; 83690; 83735; 83880; 84145; 84484; 85025; 85610; 85730; 87040; 87077; 87086; 87186; 87637; 93005; 96365; 96375; 99233; 99238; 99285; J0696; J1650; J2405